=== PATIENT | male | born 1945 | race Caucasian/White ===

== ENCOUNTER → 2017-06-28 | Outpatient (CLI) | payer MEDICARE ==
--- NOTE | 2017-06-28 08:26 | US ---
EXAMINATION TYPE: US abdomen limited DATE OF EXAM: 06/28/2017 COMPARISON: NONE CLINICAL HISTORY: R18.8 OTHER ASCITES. Ascites check Scanned all 4 quadrants: no ascites seen at this time. Heterogeneous hyperechoic appearance of liver in the right upper quadrant is seen. No significant asc ites is noted in scanning bilateral upper and lower quadrants. IMPRESSION: As above
== END | disposition home or self-care (01) ==
LOC: RADUSWWP 07:59
PROVIDERS: ATTEND Internal Medicine Cardiovascular Disease
DX: R18.8 Other ascites (principal)
CPT/HCPCS: 76705

== ENCOUNTER → 2017-07-28 | Outpatient (CLI) | payer MEDICARE ==
--- NOTE | 2017-07-28 14:26 | XR ---
EXAMINATION TYPE: XR lumbosacral spine min 4V DATE OF EXAM: 07/28/2017 COMPARISON: NONE HISTORY: Ankylosing spondylitis chronic low back pain TECHNIQUE: Five-view lumbar spine FINDINGS: Spondylosis is present. Sacroiliac joints may have effusion within the [id number]. Disc space narrowing is present diffusely. Vertebral body heights are preserved. Alignment is straightened . Note is made of some minimal fusiform prominence of the distal abdominal aorta with an AP diameter of 3.3 cm. IMPRESSION: 1. Extensive spondylosis. 2. Mild facet degenerative changes. 3. Incidental note is made of sacroiliac joint fusion which is compatible with ankylosing spondylitis . 4. Distal abdominal aorta fusiform prominence with an AP diameter of 3.3 cm.
== END | disposition home or self-care (01) ==
LOC: RADXRYALE 13:54
PROVIDERS: ATTEND Internal Medicine
DX: M45.7 Ankylosing spondylitis of lumbosacral region (principal); M47.816 Spondylosis without myelopathy or radiculopathy, lumbar region
CPT/HCPCS: 72110

== ENCOUNTER 2017-11-04 23:49 | Emergency (ER) | payer MEDICARE ==
[2017-11-05] MEDS ORDERED: SODIUM CHLORIDE 0.9% 1,000 ML IV STA (00:46)
--- NOTE | 2017-11-05 00:59 | ED ---
Abdominal Pain HPI - General Chief Complaint: Abdominal Pain Stated Complaint: ABD PAIN Time Seen by Provider: 11/05/17 00:35 Source: patient, family, RN notes reviewed Mode of arrival: ambulatory Limitations: no limitations - History of Present Illness Initial Comments: This is a 72-year-old male who presents to the emergency department with chief complaint of abdominal pain. Patient states that at around 4 PM this afternoon he developed generalized abdominal pain. He states he feels bloated and has cramping. Patient states that he has also had nausea and vomiting. Denies any diarrhea. States his last normal bowel movement was yesterday morning. He denies any fevers or chills, chest pain or shortness of breath. Denies any hematuria or dysuria. Patient states that he does have a history of small bowel obstruction. - Related Data Home Medications Medication Instructions Recorded Confirmed Allopurinol [Zyloprim] 100 mg PO DAILY 01/03/14 01/03/14 Aspirin 81 mg PO HS 01/03/14 01/03/14 Atorvastatin [Lipitor] 20 mg PO HS 01/03/14 01/03/14 Baclofen 10 mg PO HS 01/03/14 01/03/14 Cholecalciferol [Vitamin D3] 1,000 unit PO DAILY 01/03/14 01/03/14 Doxazosin [Cardura] 4 mg PO DAILY 01/03/14 01/03/14 Enalapril [Vasotec] 5 mg PO DAILY 01/03/14 01/03/14 Furosemide [Lasix] 40 mg PO DAILY 01/03/14 01/03/14 Gabapentin 600 mg PO TID 01/03/14 01/03/14 Meloxicam [Mobic] 7.5 mg PO HS 01/03/14 01/03/14 Metaxalone 400 mg PO DAILY 01/03/14 01/03/14 Metoprolol Succinate (ER) [Toprol 25 mg PO HS 01/03/14 01/03/14 XL] Multivitamins, Thera [Multivitamin] 1 each PO DAILY 01/03/14 01/03/14 Omeprazole [PriLOSEC] 20 mg PO DAILY 01/03/14 01/03/14 Potassium Chloride [Klor-Con 10] 10 meq PO DAILY 01/03/14 01/03/14 Pramipexole Di-HCl [Mirapex] 0.5 mg PO DAILY 01/03/14 01/03/14 Pramipexole Di-HCl [Mirapex] 1.5 mg PO HS 01/03/14 01/03/14 Allergies Allergy/AdvReac Type Severity Reaction Status Date / Time No Known Allergies Allergy Verified 11/05/17 00:04 Review of Systems ROS Statement: Those systems with pertinent positive or pertinent negative responses have been documented in the HPI. ROS Other: All systems not noted in ROS Statement are negative. Past Medical History Past Medical History: Asthma, GERD/Reflux, Hyperlipidemia, Hypertension, Pneumonia, Prostate Disorder, Sleep Apnea/CPAP/BIPAP Additional Past Medical History / Comment(s): cardiomyopathy, hiatal hernia, anemia History of Any Multi-Drug Resistant Organisms: None Reported Past Surgical History: Hernia Repair, Joint Replacement, Orthopedic Surgery Additional Past Surgical History / Comment(s): colonoscopy,EGD, Scotty hip replacments, scotty fx ankles, screws removed from rt ankle Past Anesthesia/Blood Transfusion Reactions: No Reported Reaction Past Psychological History: No Psychological Hx Reported Smoking Status: Former smoker Past Alcohol Use History: Occasional Past Drug Use History: None Reported General Exam - General Exam Comments Initial Comments: General: Awake and alert, well-developed; in no apparent distress. HEENT: Head atraumatic, normocephalic. Pupils are equal, round and reactive to light. Extraocular movements intact. Oropharynx moist without erythema or exudate. Neck: Supple. Normal ROM. Cardiovascular: Regular rate and rhythm. No murmurs, rubs or gallops. Chest symmetrical. Respiratory: Lungs clear to auscultation bilaterally. No wheezes, rales or rhonchi. Normal respiratory effort with no use of accessory muscles. Abdomen: Soft, distended. Mild tenderness on palpation of right lower quadrant. No rigidity, rebound or guarding. Normal bowel sounds in all 4 quadrants. Musculoskeletal: Normal ROM, no tenderness bilateral upper and lower extremities. Ambulating normally. Skin: [place], warm and dry without rashes or lesions. Neurological: Alert and oriented x3. CN II-XII grossly intact. Speech is fluent and answers are appropriate. No focal neuro deficits. Psychiatric: Normal mood and affect. No overt signs of depression or anxiety noted. Limitations: no limitations Course Vital Signs 11/05/17 00:02 Temperature 98.6 F Pulse Rate 74 Respiratory 16 Rate Blood Pressure 130/77 O2 Sat by Pulse 97 Oximetry Medical Decision Making - Medical Decision Making This is a 72-year-old male who presents to the emergency department with chief complaint of abdominal pain. Patient reports generalized abdominal pain since 4 PM yesterday evening. He reports nausea and vomiting. Abdomen is soft, mildly distended with mild tenderness of the right lower quadrant. Patient declined antiemetic medication and has not vomited. On reevaluation, patient stated that his symptoms had resolved and that he was no longer experiencing abdominal pain. X-ray KUB revealed no acute abnormalities. CBC revealed a mildly elevated white count at 11.1 and a hemoglobin at 12.0, however this is consistent with previous laboratory studies. BUN mildly elevated at 22 and creatinine at 1.26. Patient was given 1 L of fluids in the emergency department. UA is unremarkable. Patient states he is ready to be discharged home and will follow up with his primary care provider on Tuesday. Vitals are stable and he is in no acute distress. He will be discharged home at this time. All questions were answered. - Lab Data Result diagrams: 11/05/17 01:30 11/05/17 01:30 Lab Results 11/05/17 11/05/17 11/05/17 Range/Units 01:30 01:30 01:30 WBC 11.1 H (3.8-10.6) k/uL RBC 4.02 L (4.30-5.90) m/uL Hgb 12.0 L (13.0-17.5) gm/dL Hct 37.3 L (39.0-53.0) % MCV 92.7 (80.0-100.0) fL MCH 29.9 (25.0-35.0) pg MCHC 32.2 (31.0-37.0) g/dL RDW 14.8 (11.5-15.5) % Plt Count 202 (150-450) k/uL Neutrophils % 89 % Lymphocytes % 6 % Monocytes % 4 % Eosinophils % 0 % Basophils % 0 % Neutrophils # 9.9 H (1.3-7.7) k/uL Lymphocytes # 0.7 L (1.0-4.8) k/uL Monocytes # 0.4 (0-1.0) k/uL Eosinophils # 0.0 (0-0.7) k/uL Basophils # 0.0 (0-0.2) k/uL Sodium 141 (137-145) mmol/L Potassium 4.6 (3.5-5.1) mmol/L Chloride 103 (98-107) mmol/L Carbon Dioxide 27 (22-30) mmol/L Anion Gap 11 mmol/L BUN 22 H (9-20) mg/dL Creatinine 1.26 H (0.66-1.25) mg/dL Est GFR (CKD-EPI)AfAm 65 (>60 ml/min/1.73 sqM) Est GFR (CKD-EPI)NonAf 56 (>60 ml/min/1.73 sqM) Glucose 127 H (74-99) mg/dL Calcium 9.7 (8.4-10.2) mg/dL Total Bilirubin 0.6 (0.2-1.3) mg/dL AST 25 (17-59) U/L ALT 35 (21-72) U/L Alkaline Phosphatase 73 (38-126) U/L Total Protein 7.8 (6.3-8.2) g/dL Albumin 4.6 (3.5-5.0) g/dL Amylase 55 (30-110) U/L Lipase 85 (23-300) U/L Urine Color Yellow Urine Appearance Clear (Clear) Urine pH 5.0 (5.0-8.0) Ur Specific [place] 1.016 (1.001-1.035) Urine Protein Trace H (Negative) Urine Glucose (UA) Negative (Negative) Urine Ketones Negative (Negative) Urine Blood Negative (Negative) Urine Nitrite Negative (Negative) Urine Bilirubin Negative (Negative) Urine Urobilinogen <2.0 (<2.0) mg/dL Ur Leukocyte Esterase Negative (Negative) Disposition Clinical Impression: Abdominal pain, Nausea and vomiting Disposition: HOME SELF-CARE Condition: Good Instructions: Abdominal Pain (ED), Acute Nausea and Vomiting (ED) Additional Instructions: Please follow up with primary care provider within 1-2 days. Return to emergency department if symptoms should worsen or any concerns arise. Is patient prescribed a controlled substance at d/c from ED?: No Referrals: Nalini Palmer MD [Primary Care Provider] - 1-2 days Time of Disposition: 02:45
--- NOTE | 2017-11-05 01:52 | XR ---
EXAMINATION TYPE: XR KUB DATE OF EXAM: 11/05/2017 COMPARISON: NONE HISTORY: Abdominal pain TECHNIQUE: 2 views upright FINDINGS: There is no sign of intestinal obstruction or pneumoperitoneum. Fecal pattern is normal. Th ere are bilateral hip prosthesis. There are no pathologic calcifications over the kidneys. There is e xtensive spondylosis in the lumbar spine. Lung bases are clear. IMPRESSION: Nonacute abdomen.
[2017-11-05 02:02] LABS: Appearance,Urine Clear (Clear); Bilirubin,Urine Negative (Negative); Blood,Urine Negative (Negative); Color,Urine Yellow; Glucose,Urine (UA) Negative (Negative); Ketones,Urine Negative (Negative); Leukocyte Esterase,Urine Negative (Negative); Nitrite,Urine Negative (Negative); Protein,Urine Trace (Negative); Specific Gravity,Urine 1.016 (1.001-1.035); Urobilinogen,Urine <2.0 mg/dL (<2.0)
[2017-11-05 02:04] LABS: Basophils % (A) 0 %; Eosinophils % (A) 0 %; HCT 37.3 % (39.0-53.0); Lymphocytes # (A) 0.7 k/uL (1.0-4.8); Lymphocytes % (A) 6 %; MCH 29.9 pg (25.0-35.0); MCHC 32.2 g/dL (31.0-37.0); MCV 92.7 fL (80.0-100.0); Mean Platelet Volume 8.1; Monocytes # (A) 0.4 k/uL (0-1.0); Monocytes % (A) 4 %; Neutrophils # (A) 9.9 k/uL (1.3-7.7); Neutrophils % (A) 89 %; Platelet Count 202 k/uL (150-450); RBC 4.02 m/uL (4.30-5.90); RDW 14.8 % (11.5-15.5); WBC 11.1 k/uL (3.8-10.6)
[2017-11-05 02:15] LABS: Albumin 4.6 g/dL (3.5-5.0); Calcium 9.7 mg/dL (8.4-10.2); Potassium 4.6 mmol/L (3.5-5.1); Total Bilirubin 0.6 mg/dL (0.2-1.3); Total Protein 7.8 g/dL (6.3-8.2)
[2017-11-05 03:04] VITALS: BP 134/64; PULSE 77; RESP 18; TEMP 97.7
== END 2017-11-05 03:05 | disposition home or self-care (01) ==
LOC: EC 23:49
DX: R10.84 Generalized abdominal pain (principal); R11.2 Nausea with vomiting, unspecified; R14.0 Abdominal distension (gaseous); E78.5 Hyperlipidemia, unspecified; I10 Essential (primary) hypertension; G47.30 Sleep apnea, unspecified; K21.9 Gastro-esophageal reflux disease without esophagitis; Z79.1 Long term (current) use of non-steroidal anti-inflammatories (NSAID); Z79.82 Long term (current) use of aspirin; Z79.899 Other long term (current) drug therapy; Z87.891 Personal history of nicotine dependence
CPT/HCPCS: 36415; 74018; 80053; 81003; 82150; 83690; 85025; 96360; 99284

== ENCOUNTER → 2018-09-25 | Outpatient (CLI) | payer MEDICARE ==
--- NOTE | 2018-09-25 13:10 | XR ---
EXAMINATION TYPE: XR shoulder complete LT DATE OF EXAM: 09/25/2018 COMPARISON: NONE HISTORY: 73 year-old male left shoulder pain TECHNIQUE: 3 views FINDINGS: Mild degenerative joint space narrowing with moderate marginal spurring at the AC joint. Subacromial space is preserved. Mild bony irregularity and sclerosis of the greater tuberosity. No acute fracture , subluxation, or dislocation seen. IMPRESSION: 1. 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 2. Some bony changes at the greater tuberosity suggest chronic rotator cuff tendinopathy.
== END | disposition home or self-care (01) ==
LOC: RADXRYALE 10:41
PROVIDERS: ATTEND Internal Medicine
DX: M19.012 Primary osteoarthritis, left shoulder (principal)

== ENCOUNTER → 2018-12-11 | Outpatient (CLI) | payer MEDICARE ==
--- NOTE | 2018-12-11 11:44 | XR ---
EXAMINATION TYPE: XR knee limited RT DATE OF EXAM: 12/11/2018 COMPARISON: None HISTORY: Right knee pain TECHNIQUE: 2 view right knee FINDINGS: Anterior superior and anterior inferior patellar spurring is present. No joint effusion is evident. No acute fractures or dislocations are evident. Old fracture of the proximal diaphyseal fibula may be present. Knee joint space appears preserved. IMPRESSION: 1. Mild degenerative changes right knee.
== END | disposition home or self-care (01) ==
LOC: RADXRYALE 11:12
PROVIDERS: ATTEND Internal Medicine
DX: M17.11 Unilateral primary osteoarthritis, right knee (principal)

== ENCOUNTER → 2019-09-18 | Outpatient (CLI) | payer MEDICARE ==
--- NOTE | 2019-09-18 11:23 | MM ---
Reason for exam: clinical finding. Physical Findings: Nurse did not find any significant physical abnormalities on exam. MG 3D Diag Mammo W/Cad ERMIAS Bilateral CC and MLO view(s) were taken. The breast tissue is almost entirely fat. There is no discrete abnormality. These results were verbally communicated with the patient and result sheet given to the patient on 09/18/19. ASSESSMENT: Incomplete: need additional imaging evaluation, BI-RAD 0 RECOMMENDATION: Ultrasound of both breasts.
--- NOTE | 2019-09-18 11:25 | USB ---
Reason for exam: additional evaluation requested from abnormal screening. US Breast BILAT Right complete breast ultrasound includes all four quadrants, the retroareolar region and axilla. Finding demonstrates no cystic or solid lesion seen. Let complete breast ultrasound includes all four quadrants, the retroareolar region and axilla. Finding demonstrates a 6mm oval normal lymph node at the axilla. No solid or cystic lesion. No significant gynecomastia. These results were verbally communicated with the patient and result sheet given to the patient on 09/18/19. ASSESSMENT: Negative, BI-RAD 1 RECOMMENDATION: Clinical management of both breasts. Manage on a clinical basis with regard to nipple tenderness/irritation.
== END | disposition home or self-care (01) ==
LOC: RADMAMWWP 10:01
PROVIDERS: ATTEND Internal Medicine
DX: R23.4 Changes in skin texture (principal); R92.8 Other abnormal and inconclusive findings on diagnostic imaging of breast
CPT/HCPCS: 77066; 76641; G0279; 77062

== ENCOUNTER → 2022-06-23 | Outpatient (CLI) | payer MEDICARE ==
--- NOTE | 2022-06-24 12:04 | US ---
EXAMINATION TYPE: US scrotum with doppler. Grayscale and color Doppler Duplex imaging performed of lilly antony scrotum. DATE OF EXAM: 06/23/2022 COMPARISON: NONE CLINICAL INDICATION: Male, 76 years old with history of N50.89 OTHER SPECIFIED DISORDERS OF THE MALE GENIT; Left testicular pain. Patient states the pain has subsided. EXAM MEASUREMENTS: TESTICLES: Right Testicle: 4.3 x 3.4 x 2.3 cm Left Testicle: 3.9 x 2.3 x 1.8 cm EPIDIDYMIS HEAD: Right Epididymis: 0.7 x 0.7 x 1.0 cm Left Epididymis: Unable to visualize Doppler performed to assess for testicular vascularity; bilateral color flow and waveforms are seen. Presence of hydroceles: Yes on the right: 0.8 x 3.0 x 1.0 cm. Presence of varicoceles: Prominent vessels seen bilaterally- measure 4 mm on the right and 4.4 mm on the left. [employer]ator notes:Left testicle appears smaller in size and slightly heterogeneous. IMPRESSION: 1. Smaller left testicle may be developmental or could be sequela of old injury. No sonographic evide nce for testicular torsion or epididymoorchitis. 2. Bilateral varicoceles, left larger than right. 3. Small right-sided hydrocele.
== END | disposition home or self-care (01) ==
LOC: RADUSWWP 16:34
PROVIDERS: ATTEND Urology
DX: N50.89 Other specified disorders of the male genital organs (principal); I86.1 Scrotal varices; N43.3 Hydrocele, unspecified
CPT/HCPCS: 76870; 93975

== ENCOUNTER → 2023-01-19 | Outpatient (CLI) | payer MEDICARE ==
--- NOTE | 2023-01-21 13:02 | MR ---
EXAMINATION TYPE: MR brain wo/w con DATE OF EXAM: 01/19/2023 8:53 PM CLINICAL INDICATION:Male, 77 years old with history of C34.32; PHH, Lung cancer, occasional dizziness and forgetfulness COMPARISON: None TECHNIQUE: Multi planar, multi sequence imaging was performed through the brain including: T1, T2, In version recovery, susceptibility weighted imaging and gradient echo imaging and Diffusion weighted im aging. The patient was then given intravenous contrast and multi planar, T1 fat-saturation images wer e obtained. IV Contrast: 11.5 cc Gadobutrol FINDINGS: Mild cerebral atrophy with proportional dilation of ventricular system. Diffusion-weighted imaging s hows no evidence of restricted diffusion to suggest acute/subacute infarct. Intracranial arterial brie w voids are maintained. Midline structures show no abnormality. Scattered foci of high T2 signal inte nsity are seen within the periventricular white matter. The susceptibility weighted images do not rev eal any evidence for micro-hemorrhage. After administration of gadolinium, no abnormal enhancement is seen. The bone marrow signal is within normal limits. Paranasal sinuses and mastoid air cells: No significant paranasal sinus disease. Visualized orbits: Bilateral aphakia IMPRESSION: 1. No evidence of intracranial mass, acute/subacute infarct, or abnormal enhancement. 2. Nonspecific white matter changes, likely related to small vessel ischemic disease.
== END | disposition home or self-care (01) ==
LOC: RADMRIMAIN 19:45
PROVIDERS: ATTEND Internal Medicine
DX: C34.32 Malignant neoplasm of lower lobe, left bronchus or lung (principal); R90.82 White matter disease, unspecified
CPT/HCPCS: 70553; A9585

== ENCOUNTER → 2023-01-21 | Outpatient (CLI) | payer MEDICARE ==
--- NOTE | 2023-01-23 21:32 | PE ---
EXAMINATION TYPE: PET CT fusion skull to thigh DATE OF EXAM: 01/21/2023 COMPARISON: MRI brain 01/19/2023 Prior PET/CT: None HISTORY: Lung cancer TECHNIQUE: Following the intravenous administration of 11.6 mCi of F-18 FDG, whole body images are p erformed from the skull base to the midthigh. Images are reviewed on the computer in the coronal, ax ial, and sagittal planes. Reconstructed rotating images are created on independent workstation and r eviewed on the computer. A localization and attenuation correction CT is performed in conjunction w ith the PET scan. DLP: 1002.01 mGycm SCAN: Initial Blood glucose: 110 mg/dL Average Mediastinum SUV: 2.44 Average Liver SUV: 2.85 FINDINGS: NECK: No abnormal uptake THORAX: There is uptake within a posterior medial left lung nodule, image 101, SUV 3.06. There is intense uptake within the posterior aspect of soft tissue density adjacent to the descending thoracic aorta in the posterior left infrahilar region, image 95, SUV 7.12. There may be a paraesophageal lymph node, image 86, SUV 4.75. Neoplasm should be considered. ABDOMEN: No abnormal uptake PELVIS: Some proximal gluteal muscular activity is likely related to muscle atrium during the examina tion and appear symmetrical. OSSEOUS STRUCTURES: Abnormal uptake is in the posterior lateral left scapula, example image 48, SUV 6 .73. Findings can be compatible with metastatic lesion. There is intense uptake within the mid sternum, image 99, SUV 7.48. LOCALIZATION CT: Bilateral hip prostheses are present. COMPARISON: None IMPRESSION: 1. Uptake within the neoplastic range within soft tissue density within the lung can be compatible wi th the patient's lung cancer. 2. Metastatic lesions to the left scapula and sternum are evident.
== END | disposition home or self-care (01) ==
LOC: RADPETMAIN 09:25
PROVIDERS: ATTEND Internal Medicine
DX: C34.32 Malignant neoplasm of lower lobe, left bronchus or lung (principal); C79.51 Secondary malignant neoplasm of bone; J98.4 Other disorders of lung
CPT/HCPCS: 78815; A9552

== ENCOUNTER 2023-03-19 11:12 | Emergency (ER) | payer MEDICARE ==
--- NOTE | 2023-03-19 11:55 | ED ---
General Adult HPI - General Chief complaint: Chest Pain Stated complaint: chest pain Time Seen by Provider: 03/19/23 11:35 Source: patient, family, RN notes reviewed, old records reviewed Mode of arrival: ambulatory Limitations: no limitations - History of Present Illness Initial comments: This is a 77-year-old male with past medical history significant for lung cancer who has been treated with chemotherapy. Patient states he has chest pain in the left side every day but it is not too bad however this morning he woke up it was significantly or painful than normal. Patient did not take any this morning pain medicines because he wanted to be evaluated without his pain medicines on board. Patient denies any fever chills. Patient has a cough. Patient states it felt like it was making more short of breath but it could've been just secondary to the pain he states. Patient denies lightheadedness or dizziness. Patient denies abdominal pain patient denies nausea vomiting diarrhea patient states pain currently is much better than it was. - Related Data Home Medications Medication Instructions Recorded Confirmed Aspirin 81 mg PO HS 01/03/14 01/03/14 Atorvastatin [Lipitor] 20 mg PO HS 01/03/14 01/03/14 Baclofen 10 mg PO HS 01/03/14 01/03/14 Cholecalciferol [Vitamin D3] 1,000 unit PO DAILY 01/03/14 01/03/14 Doxazosin [Cardura] 4 mg PO DAILY 01/03/14 01/03/14 Enalapril [Vasotec] 5 mg PO DAILY 01/03/14 01/03/14 Furosemide [Lasix] 40 mg PO DAILY 01/03/14 01/03/14 Gabapentin 600 mg PO TID 01/03/14 01/03/14 Meloxicam [Mobic] 7.5 mg PO HS 01/03/14 01/03/14 Metaxalone 400 mg PO DAILY 01/03/14 01/03/14 Metoprolol Succinate (ER) [Toprol 25 mg PO HS 01/03/14 01/03/14 XL] Multivitamins, Thera [Multivitamin] 1 each PO DAILY 01/03/14 01/03/14 Omeprazole [PriLOSEC] 20 mg PO DAILY 01/03/14 01/03/14 Potassium Chloride [Klor-Con 10] 10 meq PO DAILY 01/03/14 01/03/14 Pramipexole Di-HCl [Mirapex] 0.5 mg PO DAILY 01/03/14 01/03/14 Pramipexole Di-HCl [Mirapex] 1.5 mg PO HS 01/03/14 01/03/14 allopurinoL [Zyloprim] 100 mg PO DAILY 01/03/14 01/03/14 Allergies Allergy/AdvReac Type Severity Reaction Status Date / Time No Known Allergies Allergy Verified 03/19/23 11:30 Review of Systems ROS Statement: Those systems with pertinent positive or pertinent negative responses have been documented in the HPI. ROS Other: All systems not noted in ROS Statement are negative. Past Medical History Past Medical History: Asthma, GERD/Reflux, Hyperlipidemia, Hypertension, Pneumonia, Prostate Disorder, Sleep Apnea/CPAP/BIPAP Additional Past Medical History / Comment(s): cardiomyopathy, hiatal hernia, anemia History of Any Multi-Drug Resistant Organisms: None Reported Past Surgical History: Hernia Repair, Joint Replacement, Orthopedic Surgery Additional Past Surgical History / Comment(s): colonoscopy,EGD, Scotty hip replacments, scotty fx ankles, screws removed from rt ankle Past Anesthesia/Blood Transfusion Reactions: No Reported Reaction Past Psychological History: No Psychological Hx Reported Smoking Status: Former smoker General Exam - General Exam Comments Initial Comments: GENERAL: Patient is well-developed and well-nourished. Patient is nontoxic and well- hydrated and is in mild distress. ENT: Neck is soft and supple. No significant lymphadenopathy is noted. Oropharynx is clear. Moist mucous membranes. Neck has full range of motion without eliciting any pain. EYES: The sclera were anicteric and conjunctiva were pink and moist. Extraocular movements were intact and pupils were equal round and reactive to light. Eyelids were unremarkable. PULMONARY: Unlabored respirations. Good breath sounds bilaterally. No audible rales rhonchi or wheezing was noted. CARDIOVASCULAR: There is a regular rate and rhythm without any murmurs gallops or rubs. ABDOMEN: Soft and nontender with normal bowel sounds. SKIN: Skin is clear with no lesions or rashes and otherwise unremarkable. NEUROLOGIC: Patient is alert and oriented x3. Cranial nerves II through XII are grossly i ntact. Motor and sensory are also intact. Normal speech, volume and content. Symmetrical smile. MUSCULOSKELETAL: Normal extremities with adequate strength and full range of motion. LYMPHATICS: No significant lymphadenopathy is noted PSYCHIATRIC: Normal psychiatric evaluation. Limitations: no limitations Course Vital Signs 03/19/23 11:20 Temperature 98.1 F Pulse Rate 89 Respiratory 20 Rate Blood Pressure 138/68 O2 Sat by Pulse 95 Oximetry Medical Decision Making - Medical Decision Making EKG is interpreted by myself. EKG shows sinus rhythm at 90 bpm IA interval is 136 QRS is 100 a QT interval 348 QTC is 396. Patient's EKG shows no ST segment elevation or depression. Was pt. sent in by a medical professional or institution (, PA, RADIOLOGIC TECH, urgent care, hospital, or detention...) When possible be specific @ -No Did you speak to anyone other than the patient for history (EMS, parent, family, police, friend...)? What history was obtained from this source @ -No Did you review nursing and triage notes (agree or disagree)? Why? @ -I reviewed and agree with nursing and triage notes Were old charts reviewed (outside hosp., previous admission, EMS record, old EKG, old radiological studies, urgent care reports/EKG's, detention records)? Report findings @ -I reviewed prior charts and prior lab work Differential Diagnosis (chest pain, altered mental status, abdominal pain women, abdominal pain men, vaginal bleeding, weakness, fever, dyspnea, syncope, head ache, dizziness, GI bleed, back pain, seizure, CVA, palpatations, mental health, musculoskeletal)? @ -Differential Chest Pain: Stable Angina, Unstable Angina, STEMI, NSTEMI Aortic Dissection, Pneumothorax, Musculoskeletal, Esophageal Spasm GERD, Cholecystitis, Pancreatitis, Zoster, this is not meant to be an all-inclusive list. EKG interpreted by me (3pts min.). @ -As above X-rays interpreted by me (1pt min.). @ -Chest x-ray showed no acute abnormality CT interpreted by me (1pt min.). @ -CT of the chest showed no PE and they did show an infrahilar mass as well as a mass in the sternum and left scapula U/S interpreted by me (1pt. min.). @ -None done What testing was considered but not performed or refused? (CT, X-rays, U/S, labs)? Why? @ -None What meds were considered but not given or refused? Why? @ -None Did you discuss the management of the patient with other professionals (professionals i.e. , PA, RADIOLOGIC TECH, lab, RT, psych nurse, social service worker, silica filter operator, teacher, guest relation officer, pillowcase sewer)? Give summary @ -No Was smoking cessation discussed for >3mins.? @ -No Was critical care preformed (if so, how long)? @ -No Were there social determinants of health that impacted care today? How? (Homelessness, low income, unemployed, alcoholism, drug addiction, transportation, low edu. Level, literacy, decrease access to med. care, detention, rehab)? @ -No Was there de-escalation of care discussed even if they declined (Discuss DNR or withdrawal of care, Hospice)? DNR status @ -No What co-morbidities impacted this encounter? (DM, HTN, Smoking, COPD, CAD, Cancer, CVA, ARF, Chemo, Hep., AIDS, mental health diagnosis, sleep apnea, morbid obesity)? @ -None Was patient admitted / discharged? Hospital course, mention meds given and route, prescriptions, significant lab abnormalities, going to OR and other pertinent info. @ -I spoke with the patient after he had taken his pain medicines and received medicine here patient was feeling considerably better and no longer had any significant chest pain. Patient denied any difficulty breathing. Patient comfortable going home at this point time. Patient states she'll start taking his pain medication as prescribed if he is uncomfortable. Patient states taking a deep breath it is typically when the pain is at its worse. Undiagnosed new problem with uncertain prognosis? @ -No Drug Therapy requiring intensive monitoring for toxicity (Heparin, Nitro, Insulin, Cardizem)? @ -No Were any procedures done? @ -No Diagnosis/symptom? @ -Muscle skeletal chest pain Acute, or Chronic, or Acute on Chronic? @ -Acute Uncomplicated (without systemic symptoms) or Complicated (systemic symptoms)? @ -Complicated Side effects of treatment? @ -No Exacerbation, Progression, or Severe Exacerbation? @ -No Poses a threat to life or bodily function? How? (Chest pain, USA, MS, pneumonia, PE, COPD, DKA, ARF, appy, cholecystitis, CVA, Diverticulitis, Homicidal, Suicidal, threat to staff... and all critical care pts) @ -No - Lab Data Result diagrams: 03/19/23 12:08 03/19/23 12:08 Lab Results 03/19/23 03/19/23 03/19/23 Range/Units 12:08 12:08 12:08 WBC 6.0 (3.8-10.6) k/uL RBC 2.88 L (4.30-5.90) m/uL Hgb 9.3 L (13.0-17.5) gm/dL Hct 28.2 L (39.0-53.0) % MCV 98.1 (80.0-100.0) fL MCH 32.3 (25.0-35.0) pg MCHC 33.0 (31.0-37.0) g/dL RDW 17.0 H (11.5-15.5) % Plt Count 122 L (150-450) k/uL MPV 10.8 Neutrophils % 86 % Lymphocytes % 10 % Monocytes % 3 % Eosinophils % 0 % Basophils % 0 % Neutrophils # 5.1 (1.3-7.7) k/uL Lymphocytes # 0.6 L (1.0-4.8) k/uL Monocytes # 0.2 (0-1.0) k/uL Eosinophils # 0.0 (0-0.7) k/uL Basophils # 0.0 (0-0.2) k/uL Hypochromasia Slight Poikilocytosis Slight Anisocytosis Slight Macrocytosis Slight PT 10.8 (10.0-12.5) sec INR 1.0 (<1.2) APTT 23.1 (22.0-30.0) sec D-Dimer 2.42 H (<0.60) mg/L FEU Sodium 139 (137-145) mmol/L Potassium 4.1 (3.5-5.1) mmol/L Chloride 104 (98-107) mmol/L Carbon Dioxide 30 (22-30) mmol/L Anion Gap 5 mmol/L BUN 23 H (9-20) mg/dL Creatinine 1.17 (0.66-1.25) mg/dL Est GFR (CKD-EPI)AfAm 69 (>60 ml/min/1.73 sqM) Est GFR (CKD-EPI)NonAf 59 (>60 ml/min/1.73 sqM) Glucose 101 H (74-99) mg/dL Calcium 8.7 (8.4-10.2) mg/dL Magnesium 1.4 L (1.6-2.3) mg/dL Total Bilirubin 0.8 (0.2-1.3) mg/dL AST 32 (17-59) U/L ALT 20 (4-49) U/L Alkaline Phosphatase 82 (38-126) U/L Troponin I (0.000-0.034) ng/mL Total Protein 6.3 (6.3-8.2) g/dL Albumin 3.5 (3.5-5.0) g/dL 03/19/23 Range/Units 12:08 WBC (3.8-10.6) k/uL RBC (4.30-5.90) m/uL Hgb (13.0-17.5) gm/dL Hct (39.0-53.0) % MCV (80.0-100.0) fL MCH (25.0-35.0) pg MCHC (31.0-37.0) g/dL RDW (11.5-15.5) % Plt Count (150-450) k/uL MPV Neutrophils % % Lymphocytes % % Monocytes % % Eosinophils % % Basophils % % Neutrophils # (1.3-7.7) k/uL Lymphocytes # (1.0-4.8) k/uL Monocytes # (0-1.0) k/uL Eosinophils # (0-0.7) k/uL Basophils # (0-0.2) k/uL Hypochromasia Poikilocytosis Anisocytosis Macrocytosis PT (10.0-12.5) sec INR (<1.2) APTT (22.0-30.0) sec D-Dimer (<0.60) mg/L FEU Sodium (137-145) mmol/L Potassium (3.5-5.1) mmol/L Chloride (98-107) mmol/L Carbon Dioxide (22-30) mmol/L Anion Gap mmol/L BUN (9-20) mg/dL Creatinine (0.66-1.25) mg/dL Est GFR (CKD-EPI)AfAm (>60 ml/min/1.73 sqM) Est GFR (CKD-EPI)NonAf (>60 ml/min/1.73 sqM) Glucose (74-99) mg/dL Calcium (8.4-10.2) mg/dL Magnesium (1.6-2.3) mg/dL Total Bilirubin (0.2-1.3) mg/dL AST (17-59) U/L ALT (4-49) U/L Alkaline Phosphatase (38-126) U/L Troponin I <0.012 (0.000-0.034) ng/mL Total Protein (6.3-8.2) g/dL Albumin (3.5-5.0) g/dL Disposition Clinical Impression: Musculoskeletal chest pain Disposition: HOME SELF-CARE Condition: Good Instructions (If sedation given, give patient instructions): Chest Pain (ED) Is patient prescribed a controlled substance at d/c from ED?: No Referrals: Nalini Palmer MD [Primary Care Provider] - 1-2 days Time of Disposition: 14:50
--- NOTE | 2023-03-19 12:10 | XR ---
EXAMINATION TYPE: XR chest 2V DATE OF EXAM: 03/19/2023 COMPARISON: NONE HISTORY: Chest pain TECHNIQUE: Frontal and lateral views of the chest are obtained. FINDINGS: There is no focal air space opacity, pleural effusion, or pneumothorax seen. The cardiac silhouette size is within normal limits. The osseous structures are intact. IMPRESSION: No acute cardiopulmonary process.
[2023-03-19] MEDS: KETOROLAC 15 MG/ML 1 ML VIAL IVP STA (12:24)
[2023-03-19] MEDS: SODIUM CHLORIDE 0.9% 500 ML 500 ML IV STA (12:24)
[2023-03-19 12:31] LABS: Anisocytosis Slight; Basophils % (A) 0 %; Eosinophils % (A) 0 %; HCT 28.2 % (39.0-53.0); HGB 9.3 gm/dL (13.0-17.5); Hypochromasia Slight; Lymphocytes # (A) 0.6 k/uL (1.0-4.8); Lymphocytes % (A) 10 %; MCH 32.3 pg (25.0-35.0); MCV 98.1 fL (80.0-100.0); Macrocytosis Slight; Mean Platelet Volume 10.8; Monocytes # (A) 0.2 k/uL (0-1.0); Monocytes % (A) 3 %; Neutrophils # (A) 5.1 k/uL (1.3-7.7); Neutrophils % (A) 86 %; Platelet Count 122 k/uL (150-450); Poikilocytosis Slight; RBC 2.88 m/uL (4.30-5.90)
[2023-03-19 12:46] LABS: Partial Thromboplastin Time 23.1 sec (22.0-30.0); Prothrombin Time 10.8 sec (10.0-12.5)
[2023-03-19 12:51] LABS: ALT 20 U/L (4-49); AST 32 U/L (17-59); African American GFR (CKD) 69 (>60 ml/min/1.73 sqM); Albumin 3.5 g/dL (3.5-5.0); Alkaline Phosphatase 82 U/L (38-126); Anion Gap 5 mmol/L; Blood Urea Nitrogen 23 mg/dL (9-20); Calcium 8.7 mg/dL (8.4-10.2); Carbon Dioxide 30 mmol/L (22-30); Chloride 104 mmol/L (98-107); Glucose 101 mg/dL (74-99); Magnesium 1.4 mg/dL (1.6-2.3); Non-African American GFR(CKD) 59 (>60 ml/min/1.73 sqM); Potassium 4.1 mmol/L (3.5-5.1); Sodium 139 mmol/L (137-145); Total Bilirubin 0.8 mg/dL (0.2-1.3); Total Protein 6.3 g/dL (6.3-8.2)
--- NOTE | 2023-03-19 14:13 | CT ---
EXAMINATION TYPE: CT chest angio for PE DATE OF EXAM: 03/19/2023 COMPARISON: HISTORY: r/o PE CT DLP: 657.8 mGycm CONTRAST: CT chest with contrast and 3D reconstruction with MIP imaging is performed with IV Contrast, patient injected with 75 mL of Isovue 370. Contrast-enhanced CT of the chest was performed through the course of the pulmonary arteries with abebe g and mediastinal window settings submitted. 3D reconstruction with MIP imaging was also performed. PULMONARY ARTERIES: The pulmonary arteries and their major tributaries are patent. I do not see lexa dence for sizable filling defect to suggest pulmonary embolic process. LUNGS: There is left infrahilar mass measuring approximately 4.3 x 2.0 cm with additional pleural-bas ed component measuring 2.2 cm. Correlating patient's known malignancy. The remainder of the lungs are clear. MEDIASTINUM: Thoracic aorta is of normal caliber,however, evaluation is limited given timing of the contrast bolus. If there is concern for thoracic aortic pathology consider NINFA. Correlate clinicall y . The heart is not enlarged. No evidence for mediastinal mass. No mediastinal lymph nodes greater than 1cm. HILAR STRUCTURES: No evidence for mass. No hilar lymph nodes greater than 1 cm. UPPER ABDOMEN: No significant abnormality is seen. Other: Sternal lesion and left scapular lesion noted. IMPRESSION: 1. No evidence for Pulmonary embolism at this time. 2. Left infrahilar mass with nodular pleural component. 3. Sternal and left scapular masses.
[2023-03-19] MEDS: MAGNESIUM SULFATE-D5W PMX 1 GM in DEXTROSE/WATER 1 100ML.BAG IVPB ONE (14:29)
[2023-03-19 15:45] VITALS: BP 113/68; PULSE 77; RESP 18; TEMP 97.7
== END 2023-03-19 15:45 | disposition home or self-care (01) ==
LOC: EC 11:12
DX: R07.89 Other chest pain (principal); J45.909 Unspecified asthma, uncomplicated; I10 Essential (primary) hypertension; G47.30 Sleep apnea, unspecified; E78.5 Hyperlipidemia, unspecified; K21.9 Gastro-esophageal reflux disease without esophagitis; Z79.82 Long term (current) use of aspirin; Z79.899 Other long term (current) drug therapy; Z87.891 Personal history of nicotine dependence
CPT/HCPCS: 99285 ×2; 96374 ×2; 96361 ×2; 36415; 93005; 85379; 80053; 83735; 84484; 85025; 85610; 85730; 71046; 71275; J3475; J1885; Q9967

== ENCOUNTER 2023-04-12 16:20 | Emergency (ER) | payer MEDICARE ==
--- NOTE | 2023-04-12 16:55 | ED ---
General Adult HPI - General Source: patient, RN notes reviewed Limitations: no limitations <Megan Estevez - Last Filed: 04/13/23 11:36> - History of Present Illness -: days(s) Radiation: non-radiation Severity scale (1-10): 10 Quality: constant Consistency: constant Improves with: none Worsens with: none Associated Symptoms: denies other symptoms Treatments Prior to Arrival: none <Kj Nixon - Last Filed: 04/21/23 06:27> - General Stated complaint: NVD-Chemo Time Seen by Provider: 04/12/23 16:52 - History of Present Illness Initial comments: 77 year old male presents to the emergency department for evaluation of nausea, vomiting, diarrhea x3 days. Difficulty tolerating food and water due to vomiting. Patient is receiving chemo for lung cancer. Last chemo one week ago. Patient follows with Dr. Leigh. (Megan Estevez) This is a 77-year-old male to the ER for evaluation of severe weakness today, patient is on chemotherapy for lung cancer and has been having decreased activity level appetite secondary to his chemo 1 week ago. Patient having increasing weakness and cannot keep anything down per the . Patient admits to decreased activity level and overall weakness (Kj Nixon) - Related Data Home Medications Medication Instructions Recorded Confirmed Furosemide [Lasix] 40 mg PO DAILY 01/03/14 04/15/23 Pramipexole Di-HCl [Mirapex] 1.5 mg PO BID 01/03/14 04/15/23 allopurinoL [Zyloprim] 100 mg PO HS 01/03/14 04/15/23 Albuterol Sulfate [Albuterol 1 - 2 puff PO RT-Q4H PRN 04/15/23 04/15/23 Sulfate Hfa] Ergocalciferol (Vitamin D2) 1,250 mcg PO WEEKLY 04/15/23 04/15/23 [Drisdol (50,000 Iu)] Ferrous Sulfate [Iron (65 MG 325 mg PO DAILY 04/15/23 04/15/23 Elemental)] Fluticasone Propion/Salmeterol 1 puff IN RT-BID 04/15/23 04/15/23 [Advair 250-50 Diskus] HYDROcodone/APAP 10-325MG [[place] 1 tab PO Q6HR PRN 04/15/23 04/15/23 10-325] Montelukast [Singulair] 10 mg PO HS 04/15/23 04/15/23 Morphine Sulfate ER [Ms Contin] 30 mg PO Q12HR 04/15/23 04/15/23 Ondansetron Odt [Zofran ODT] 8 mg PO Q8HR PRN 04/15/23 04/15/23 Rosuvastatin [Crestor] 20 mg PO DAILY 04/15/23 04/15/23 Tamsulosin [Flomax] 0.4 mg PO DAILY 04/15/23 04/15/23 carvediloL [Coreg] 3.125 mg PO BID 04/15/23 04/15/23 Allergies Allergy/AdvReac Type Severity Reaction Status Date / Time No Known Allergies Allergy Verified 04/15/23 07:52 Review of Systems ROS Other: All systems not noted in ROS Statement are negative. <Megan Estevez - Last Filed: 04/13/23 11:36> ROS Other: All systems not noted in ROS Statement are negative. <Kj Nixon - Last Filed: 04/21/23 06:27> ROS Statement: Those systems with pertinent positive or pertinent negative responses have been documented in the HPI. Past Medical History Past Medical History: Asthma, GERD/Reflux, Hyperlipidemia, Hypertension, Pneumonia, Prostate Disorder, Sleep Apnea/CPAP/BIPAP Additional Past Medical History / Comment(s): cardiomyopathy, hiatal hernia, anemia History of Any Multi-Drug Resistant Organisms: None Reported Past Surgical History: Hernia Repair, Joint Replacement, Orthopedic Surgery Additional Past Surgical History / Comment(s): colonoscopy,EGD, Antonina hip replacments, antonina fx ankles, screws removed from rt ankle Past Anesthesia/Blood Transfusion Reactions: No Reported Reaction Past Psychological History: No Psychological Hx Reported Smoking Status: Former smoker <Megan Estevez - Last Filed: 04/13/23 11:36> General Exam <Megan Estevez - Last Filed: 04/13/23 11:36> General appearance: alert, in no apparent distress Head exam: Present: atraumatic, normocephalic, normal inspection Eye exam: Present: normal appearance, PERRL, EOMI. Absent: scleral icterus, conjunctival injection, periorbital swelling ENT exam: Present: normal exam, mucous membranes moist Neck exam: Present: normal inspection. Absent: tenderness, meningismus, ly mphadenopathy Respiratory exam: Present: normal lung sounds bilaterally. Absent: respiratory distress, wheezes, rales, rhonchi, stridor Cardiovascular Exam: Present: regular rate, normal rhythm, normal heart sounds. Absent: systolic murmur, diastolic murmur, rubs, gallop, clicks GI/Abdominal exam: Present: soft, normal bowel sounds. Absent: distended, tenderness, guarding, rebound, rigid Extremities exam: Present: normal inspection, full ROM, normal capillary refill. Absent: tenderness, pedal edema, joint swelling, calf tenderness Back exam: Present: normal inspection Neurological exam: Present: alert, oriented X3, CN II-XII intact Psychiatric exam: Present: normal affect, normal mood Skin exam: Present: warm, dry, intact, normal color. Absent: rash <Kj Nixon - Last Filed: 04/21/23 06:27> - General Exam Comments Initial Comments: Visual Physical Exam Vital signs reviewed General: Well-appearing, nontoxic, no acute distress. Head: Normocephalic, atraumatic Eyes: PERRLA, EOMI ENT: Airway patent Chest: Nonlabored breathing Skin: No visual rash, normal skin tone Neuro: Alert and oriented 3 Musculoskeletal: No gross abnormalities (Megan Estevez) Course <Kj Nixon - Last Filed: 04/21/23 06:27> Vital Signs 04/12/23 04/12/23 04/12/23 16:49 19:40 21:19 Temperature 98.5 F 98.6 F Pulse Rate 95 100 94 Respiratory 20 18 16 Rate Blood Pressure 125/66 117/66 118/76 O2 Sat by Pulse 95 96 96 Oximetry - Reevaluation(s) Reevaluation #1: 04/12/23 19:26 Medical record is reviewed (Kj Nixon) Reevaluation #2: 04/12/23 19:26 Patient symptoms unchanged (Kj Nixon) Reevaluation #3: 04/12/23 19:26 Patient informed of results and questions answered (Kj Nixon) Reevaluation #4: Was pt. sent in by a medical professional or institution (DURAN Ansari, [employer], urgent care, hospital, or detention...) When possible be specific @ -no Did you speak to anyone other than the patient for history (EMS, parent, family, police, friend...)? What history was obtained from this source @ -no Did you review nursing and triage notes (agree or disagree)? Why? @ -agree Are old charts reviewed (outside hosp., previous admission, EMS record, old EKG, old radiological studies, urgent care reports/EKG's, detention records)? Report findings @ -yes Differential Diagnosis (chest pain, altered mental status, abdominal pain women, abdominal pain men, vaginal bleeding, weakness, fever, dyspnea, syncope, headache, dizziness, GI bleed, back pain, seizure, CVA, palpatations, mental health, musculoskeletal)? @ -prior EKG interpreted by me (3pts min.). @ -no X-rays interpreted by me (1pt min.). @ -yes negative for acute disease CT interpreted by me (1pt min.). @ -no U/S interpreted by me (1pt. min.). @ -no What testing was considered but not performed or refused? (CT, X-rays, U/S, labs)? Why? @ -none What meds were considered but not given or refused? Why? @ -none Did you discuss the management of the patient with other professionals (professionals i.e. DURAN Ansari, [employer], lab, RT, psych nurse, manager social services, warehouse supervisor, teacher, sewage reticulation drafting officer, director of casework services)? Give summary @ -no Was smoking cessation discussed for >3mins.? @ -no Was critical care preformed (if so, how long)? @ -no Were there social determinants of health that impacted care today? How? (Homelessness, low income, unemployed, alcoholism, drug addiction, transportation, low edu. Level, literacy, decrease access to med. care, long-term, rehab)? @ -none Was there de-escalation of care discussed even if they declined (Discuss DNR or withdrawal of care, Hospice)? DNR status @ -no What co-morbidities impacted this encounter? (DM, HTN, Smoking, COPD, CAD, Cancer, CVA, ARF, Chemo, Hep., AIDS, mental health diagnosis, sleep apnea, morbid obesity)? @ -none Was patient admitted / discharged? Hospital course, mention meds given and route, prescriptions, significant lab abnormalities, going to OR and other pertinent info. @ - 77 male with chemotherapy-induced weakness. Patient's symptoms are improved throughout ER stay abdominal pain is improved nausea vomiting is improved and patient can be discharged home Discharge Undiagnosed new problem with uncertain prognosis? @ -no Drug Therapy requiring intensive monitoring for toxicity (Heparin, Nitro, Insulin, Cardizem)? @ -no Were any procedures done? @ -no Diagnosis/symptom? @ -Chemotherapy and weakness Acute, or Chronic, or Acute on Chronic? @ -Acute Uncomplicated (without systemic symptoms) or Complicated (systemic symptoms)? @ -Complicated Side effects of treatment? @ -no Exacerbation, Progression, or Severe Exacerbation? @ -exacerbation Poses a threat to life or bodily function? How? (Chest pain, [place], [place], pneumonia, PE, COPD, DKA, ARF, appy, cholecystitis, CVA, Diverticulitis, Homicidal, Suicidal, threat to staff... and all critical care pts) @ -yes with extremes of age (Kj Nixon) Reevaluation #5: Differential Weakness: Hypoglycemia, shock, sepsis, hyponatremia, anemia, infection, [place], ETOH, adverse medicine reaction, overdose, stroke, this is not meant to be an all-inclusive list. (Kj Nixon) Medical Decision Making - Lab Data Result diagrams: 04/12/23 17:16 04/12/23 17:16 <Megan Estevez - Last Filed: 04/13/23 11:36> - Lab Data Result diagrams: 04/12/23 17:16 04/12/23 17:16 - Radiology Data Radiology results: report reviewed (Chest x-ray is negative for acute disease), image reviewed <Kj Nixon - Last Filed: 04/21/23 06:27> - Medical Decision Making Quick note preformed by Megan Estevez PA-C (Megan Estevez) 77 male with chemotherapy-induced weakness. Patient's symptoms are improved throughout ER stay abdominal pain is improved nausea vomiting is improved and patient can be discharged home (Kj Nixon) - Lab Data Lab Results 04/12/23 04/12/23 04/12/23 Range/Units 17:16 17:16 17:16 WBC 0.7 L* (3.8-10.6) k/uL RBC 2.49 L (4.30-5.90) m/uL Hgb 8.1 L (13.0-17.5) gm/dL Hct 24.4 L (39.0-53.0) % MCV 97.8 (80.0-100.0) fL MCH 32.6 (25.0-35.0) pg MCHC 33.3 (31.0-37.0) g/dL RDW 17.2 H (11.5-15.5) % Plt Count 81 L (150-450) k/uL MPV 10.2 Differential Comment Manual Slide Review Perf Hypochromasia Slight Poikilocytosis Slight Anisocytosis Slight Anisocytosis (manual) Present Macrocytosis Slight PT 11.5 (10.0-12.5) sec INR 1.1 (<1.2) APTT 24.3 (22.0-30.0) sec Sodium (137-145) mmol/L Potassium (3.5-5.1) mmol/L Chloride (98-107) mmol/L Carbon Dioxide (22-30) mmol/L Anion Gap mmol/L BUN (9-20) mg/dL Creatinine (0.66-1.25) mg/dL Est GFR (CKD-EPI)AfAm (>60 ml/min/1.73 sqM) Est GFR (CKD-EPI)NonAf (>60 ml/min/1.73 sqM) Glucose (74-99) mg/dL Calcium (8.4-10.2) mg/dL Total Bilirubin (0.2-1.3) mg/dL AST (17-59) U/L ALT (4-49) U/L Alkaline Phosphatase (38-126) U/L Total Protein (6.3-8.2) g/dL Albumin (3.5-5.0) g/dL Lipase (23-300) U/L Urine Color Light Yellow Urine Appearance Clear (Clear) Urine pH 5.0 (5.0-8.0) Ur Specific [place] 1.011 (1.001-1.035) Urine Protein Negative (Negative) Urine Glucose (UA) Negative (Negative) Urine Ketones Negative (Negative) Urine Blood Small H (Negative) Urine Nitrite Negative (Negative) Urine Bilirubin Negative (Negative) Urine Urobilinogen <2.0 (<2.0) mg/dL Ur Leukocyte Esterase Negative (Negative) Urine RBC 1 (0-5) /hpf Urine WBC 1 (0-5) /hpf Ur Squamous Epith Cells <1 (0-4) /hpf Urine Mucus Occasional H (None) /hpf 04/12/23 Range/Units 17:16 WBC (3.8-10.6) k/uL RBC (4.30-5.90) m/uL Hgb (13.0-17.5) gm/dL Hct (39.0-53.0) % MCV (80.0-100.0) fL MCH (25.0-35.0) pg MCHC (31.0-37.0) g/dL RDW (11.5-15.5) % Plt Count (150-450) k/uL MPV Differential Comment Manual Slide Review Hypochromasia Poikilocytosis Anisocytosis Anisocytosis (manual) Macrocytosis PT (10.0-12.5) sec INR (<1.2) APTT (22.0-30.0) sec Sodium 139 (137-145) mmol/L Potassium 3.4 L (3.5-5.1) mmol/L Chloride 103 (98-107) mmol/L Carbon Dioxide 29 (22-30) mmol/L Anion Gap 7 mmol/L BUN 16 (9-20) mg/dL Creatinine 0.84 (0.66-1.25) mg/dL Est GFR (CKD-EPI)AfAm >90 (>60 ml/min/1.73 sqM) Est GFR (CKD-EPI)NonAf 84 (>60 ml/min/1.73 sqM) Glucose 119 H (74-99) mg/dL Calcium 8.7 (8.4-10.2) mg/dL Total Bilirubin 0.9 (0.2-1.3) mg/dL AST 32 (17-59) U/L ALT 15 (4-49) U/L Alkaline Phosphatase 101 (38-126) U/L Total Protein 7.1 (6.3-8.2) g/dL Albumin 3.9 (3.5-5.0) g/dL Lipase 118 (23-300) U/L Urine Color Urine Appearance (Clear) Urine pH (5.0-8.0) Ur Specific [place] (1.001-1.035) Urine Protein (Negative) Urine Glucose (UA) (Negative) Urine Ketones (Negative) Urine Blood (Negative) Urine Nitrite (Negative) Urine Bilirubin (Negative) Urine Urobilinogen (<2.0) mg/dL Ur Leukocyte Esterase (Negative) Urine RBC (0-5) /hpf Urine WBC (0-5) /hpf Ur Squamous Epith Cells (0-4) /hpf Urine Mucus (None) /hpf Disposition Is patient prescribed a controlled substance at d/c from ED?: No <Megan Estevez - Last Filed: 04/13/23 11:36> Time of Disposition: 21:00 <Kj Nixon - Last Filed: 04/21/23 06:27> Clinical Impression: Gastroenteritis, Weakness, Chemotherapy adverse reaction Disposition: HOME SELF-CARE Instructions (If sedation given, give patient instructions): Weakness (ED) Referrals: Nalini Palmer MD [Primary Care Provider] - 1-2 days
[2023-04-12 17:38] LABS: Anisocytosis Slight; HCT 24.4 % (39.0-53.0); HGB 8.1 gm/dL (13.0-17.5); Hypochromasia Slight; MCH 32.6 pg (25.0-35.0); MCHC 33.3 g/dL (31.0-37.0); MCV 97.8 fL (80.0-100.0); Macrocytosis Slight; Mean Platelet Volume 10.2; Poikilocytosis Slight; RBC 2.49 m/uL (4.30-5.90); RDW 17.2 % (11.5-15.5)
[2023-04-12 17:49] LABS: ALT 15 U/L (4-49); AST 32 U/L (17-59); African American GFR (CKD) >90 (>60 ml/min/1.73 sqM); Albumin 3.9 g/dL (3.5-5.0); Alkaline Phosphatase 101 U/L (38-126); Anion Gap 7 mmol/L; Blood Urea Nitrogen 16 mg/dL (9-20); Calcium 8.7 mg/dL (8.4-10.2); Carbon Dioxide 29 mmol/L (22-30); Chloride 103 mmol/L (98-107); Glucose 119 mg/dL (74-99); Lipase 118 U/L (23-300); Non-African American GFR(CKD) 84 (>60 ml/min/1.73 sqM); Potassium 3.4 mmol/L (3.5-5.1); Sodium 139 mmol/L (137-145); Total Bilirubin 0.9 mg/dL (0.2-1.3); Total Protein 7.1 g/dL (6.3-8.2)
[2023-04-12 17:59] LABS: INR 1.1 (<1.2); Partial Thromboplastin Time 24.3 sec (22.0-30.0); Prothrombin Time 11.5 sec (10.0-12.5)
[2023-04-12 18:11] LABS: WBC 0.7 k/uL (3.8-10.6)
[2023-04-12 18:27] LABS: Anisocytosis (M) Present; Platelet Count 81 k/uL (150-450)
[2023-04-12] MEDS: HYDROmorphone 1 MG/ML 1 ML SYRINGE IVP STA (18:34)
[2023-04-12] MEDS: ONDANSETRON 4 MG/2 ML VIAL IVP STA (18:35)
--- NOTE | 2023-04-12 18:56 | XR ---
EXAMINATION TYPE: XR chest 1V portable DATE OF EXAM: 04/12/2023 Comparison: 03/19/2023 Clinical History: 77-year-old male pain Findings: Hazy peripheral lung densities likely related to portable technique and body habitus. Heart borderlin e in size. Mild hyperinflation. No zoila consolidation or pleural effusion seen. Impression: Borderline heart size. Suspected underlying COPD. Hazy densities related to portable technique and salvador dy habitus. No definite acute process.
[2023-04-12 21:11] LABS: Appearance,Urine Clear (Clear); Bilirubin,Urine Negative (Negative); Blood,Urine Small (Negative); Color,Urine Light Yellow; Glucose,Urine (UA) Negative (Negative); Ketones,Urine Negative (Negative); Leukocyte Esterase,Urine Negative (Negative); Mucus,Urine Occasional /hpf; Nitrite,Urine Negative (Negative); Protein,Urine Negative (Negative); RBC,Urine 1 /hpf (0-5); Specific Gravity,Urine 1.011 (1.001-1.035); Squamous Epithelial Cell,Urine <1 /hpf (0-4); Urobilinogen,Urine <2.0 mg/dL (<2.0); WBC,Urine 1 /hpf (0-5)
[2023-04-12 21:43] VITALS: BP 118/76; PULSE 94; RESP 16; TEMP 98.6
== END 2023-04-12 21:21 | disposition home or self-care (01) ==
LOC: EC 16:20
DX: K52.9 Noninfective gastroenteritis and colitis, unspecified (principal); T45.1X5A Adverse effect of antineoplastic and immunosuppressive drugs, initial encounter; C34.90 Malignant neoplasm of unspecified part of unspecified bronchus or lung; I10 Essential (primary) hypertension; J45.909 Unspecified asthma, uncomplicated; E78.5 Hyperlipidemia, unspecified; Z79.51 Long term (current) use of inhaled steroids; Z79.899 Other long term (current) drug therapy; Z87.891 Personal history of nicotine dependence
CPT/HCPCS: 36415; 80053; 83690; 85025; 85610; 85730; 81001; 71045; 99284; 96374; 96375; J2405; J1170

== ENCOUNTER 2023-04-14 17:24 | Inpatient (IN) | payer MEDICARE ==
--- NOTE | 2023-04-14 18:03 | ED ---
General Adult HPI - General Source: patient, RN notes reviewed Mode of arrival: ambulatory Limitations: no limitations <Asya Morrison - Last Filed: 04/14/23 18:02> <Juan Lawson - Last Filed: 04/15/23 03:45> - General Chief complaint: Chest Pain Stated complaint: shoulder/chest/abd pain Time Seen by Provider: 04/14/23 18:02 - History of Present Illness Initial comments: Patient is a 77-year-old male presented ER with a chief complaint of chest pain and shortness of breath. Patient was seen by Dr. Hogan earlier today and found to have a hemoglobin of 6.8. Patient is undergoing cancer treatment. (Asya Morrison) Patient is a 77-year-old male who presents emergency department with abdominal pain. Has a history of lung cancer, last received chemotherapy 1 week ago. Also has a history of COPD/asthma, hypertension. States that for the last few days, has been having nausea, nonbilious nonbloody emesis, as well as intermittent diarrhea. Has been unable to hold any food down. Presents for further evaluation at this time. Was seen for similar complaints 2 days ago and discharged home. States he has not been eating much since that time. He is not on blood thinners. He has known anemia and pancytopenia from the chemotherapy. Patient has orders to obtain CT imaging of the chest abdomen pelvis from his oncologist. I evaluated the patient when he was placed in room. Workup originally started by triage. Earlier today, hemoglobin was 6.9 and he was sent here for possible transfusion.Denies any blood in his stool or emesis. (Juan Lawson) - Related Data Home Medications Medication Instructions Recorded Confirmed Aspirin 81 mg PO HS 01/03/14 01/03/14 Atorvastatin [Lipitor] 20 mg PO HS 01/03/14 01/03/14 Baclofen 10 mg PO HS 01/03/14 01/03/14 Cholecalciferol [Vitamin D3] 1,000 unit PO DAILY 01/03/14 01/03/14 Doxazosin [Cardura] 4 mg PO DAILY 01/03/14 01/03/14 Enalapril [Vasotec] 5 mg PO DAILY 01/03/14 01/03/14 Furosemide [Lasix] 40 mg PO DAILY 01/03/14 01/03/14 Gabapentin 600 mg PO TID 01/03/14 01/03/14 Meloxicam [Mobic] 7.5 mg PO HS 01/03/14 01/03/14 Metaxalone 400 mg PO DAILY 01/03/14 01/03/14 Metoprolol Succinate (ER) [Toprol 25 mg PO HS 01/03/14 01/03/14 XL] Multivitamins, Thera [Multivitamin] 1 each PO DAILY 01/03/14 01/03/14 Omeprazole [PriLOSEC] 20 mg PO DAILY 01/03/14 01/03/14 Potassium Chloride [Klor-Con 10] 10 meq PO DAILY 01/03/14 01/03/14 Pramipexole Di-HCl [Mirapex] 0.5 mg PO DAILY 01/03/14 01/03/14 Pramipexole Di-HCl [Mirapex] 1.5 mg PO HS 01/03/14 01/03/14 allopurinoL [Zyloprim] 100 mg PO DAILY 01/03/14 01/03/14 Allergies Allergy/AdvReac Type Severity Reaction Status Date / Time No Known Allergies Allergy Verified 04/14/23 17:51 Review of Systems ROS Other: All systems not noted in ROS Statement are negative. <Asya Morrison - Last Filed: 04/14/23 18:02> ROS Other: All systems not noted in ROS Statement are negative. <Juan Lawson - Last Filed: 04/15/23 03:45> ROS Statement: Those systems with pertinent positive or pertinent negative responses have been documented in the HPI. Review of Systems: CONST: Denies fever EYES: Denies blurry vision ENT: Denies nasal congestion C/V: Denies Chest pain RESP: Denies shortness of breath GI: Endorses abdominal pain : Denies dysuria SKIN: Denies rash. MSK: Endorses chronic left shoulder pain. NEURO: Denies headache (Juan Lawson) Past Medical History Past Medical History: Asthma, GERD/Reflux, Hyperlipidemia, Hypertension, Pneumonia, Prostate Disorder, Sleep Apnea/CPAP/BIPAP Additional Past Medical History / Comment(s): cardiomyopathy, hiatal hernia, anemia History of Any Multi-Drug Resistant Organisms: None Reported Past Surgical History: Hernia Repair, Joint Replacement, Orthopedic Surgery Additional Past Surgical History / Comment(s): colonoscopy,EGD, Antonina hip replacments, antonina fx ankles, screws removed from rt ankle Past Anesthesia/Blood Transfusion Reactions: No Reported Reaction Past Psychological History: No Psychological Hx Reported Smoking Status: Former smoker Past Alcohol Use History: None Reported Past Drug Use History: None Reported <Asya Morrison - Last Filed: 04/14/23 18:02> General Exam Limitations: no limitations <Asya Morrison - Last Filed: 04/14/23 18:02> <Juan Lawson - Last Filed: 04/15/23 03:45> - General Exam Comments Initial Comments: Visual Physical Exam Vital signs reviewed General: Well-appearing, nontoxic, no acute distress. Mildly jaundiced Head: Normocephalic, atraumatic Eyes: PERRLA, EOMI ENT: Airway patent Chest: Nonlabored breathing Skin: No visual rash, normal skin tone Neuro: Alert and oriented 3 Musculoskeletal: No gross abnormalities (Asya Morrison) General: Appears in mild distress. HEAD: Normal with no signs of head trauma. EYES: PERRLA, EOMI, conjunctiva normal, no discharge. ENT: Hearing grossly intact, normal oropharynx. RESPIRATORY: Clear breath sounds bilaterally. No wheezes, rales, or rhonchi. C/V: Regular rate and rhythm. S1 and S2 auscultated, Chronic leg edema, pe ripheral pulses 2+ and intact throughout ABD: Abdomen is soft, tender to palpation diffusely. No focal tenderness. No guarding. No rebound tenderness. No peritoneal signs. EXT: Normal range of motion, no obvious deformity. Left shoulder pain worse with movement. SKIN: No rashes or lesions observed on exposed skin. NEURO: Alert and oriented x 4. (Juan Lawson) Course Vital Signs 04/14/23 04/15/23 04/15/23 17:48 00:50 02:33 Temperature 98 F Pulse Rate 102 H 85 87 Respiratory 18 18 16 Rate Blood Pressure 98/59 129/62 96/53 O2 Sat by Pulse 95 97 96 Oximetry Medical Decision Making <Asya Morrison - Last Filed: 04/14/23 18:02> - Lab Data Result diagrams: 04/14/23 19:40 04/14/23 19:40 - EKG Data -: EKG Interpreted by Me <Juan Lawson - Last Filed: 04/15/23 03:45> - Medical Decision Making I performed the quick note portion of the exam. Electronically signed by Asya Morrison PA-C (Asya Morrison) Was pt. sent in by a medical professional or institution (DURAN Ansari, MEDICAL DOCTOR MD/MEDICAL DIRECTOR, urgent care, hospital, or [facility]...) When possible be specific @ -No Did you speak to anyone other than the patient for history (EMS, parent, family, police, friend...)? What history was obtained from this source @ -No Did you review nursing and triage notes (agree or disagree)? Why? @ -I reviewed and agree with nursing and triage notes Were old charts reviewed (outside hosp., previous admission, EMS record, old EKG, old radiological studies, urgent care reports/EKG's, [facility] records)? Report findings @ -Old charts reviewed Differential Diagnosis (chest pain, altered mental status, abdominal pain women, abdominal pain men, vaginal bleeding, weakness, fever, dyspnea, syncope, headache, dizziness, GI bleed, back pain, seizure, CVA, palpatations, mental health, musculoskeletal)? @ -Differential Abdominal Pain Men: Appendicitis, cholecystitis, diverticulosis, ischemic bowel, pancreatitis, hepatitis, UTI, gastroenteritis, AAA, incarcerated hernia, bowel obstruction, constipation, inflammatory bowel, hepatitis, peptic ulcer disease, splenic infarction, perforated viscus, testicular torsion, this is not meant to be an all-inclusive list EKG interpreted by me (3pts min.). @ -As above X-rays interpreted by me (1pt min.). @ -Chest x-ray reveals no obvious acute cardiopulmonary process. CT interpreted by me (1pt min.). @ -CT imaging revealed metastasis to the sternum of his cancer. No other obvious findings seen. U/S interpreted by me (1pt. min.). @ -None done What testing was considered but not performed or refused? (CT, X-rays, U/S, labs)? Why? @ -None What meds were considered but not given or refused? Why? @ -None Did you discuss the management of the patient with other professionals (professionals i.e. DURAN Ansari, MEDICAL DOCTOR MD/MEDICAL DIRECTOR, lab, RT, psych nurse, social security specialist, animal pathologist, teacher, veterinary medical officer, rehabilitation case coordinator)? Give summary @ -I spoke with the admitting team, BRITTANIE Lennon of [facility] who accepted the admission. Was smoking cessation discussed for >3mins.? @ -No Was critical care preformed (if so, how long)? @ -No Were there social determinants of health that impacted care today? How? (Homelessness, low income, unemployed, alcoholism, drug addiction, transportation, low edu. Level, literacy, decrease access to med. care, [facility], rehab)? @ -No Was there de-escalation of care discussed even if they declined (Discuss DNR or withdrawal of care, Hospice)? DNR status @ -No What co-morbidities impacted this encounter? (DM, HTN, Smoking, COPD, CAD, Can cer, CVA, ARF, Chemo, Hep., AIDS, mental health diagnosis, sleep apnea, morbid obesity)? @ -Lung cancer currently on chemo. Was patient admitted / discharged? Hospital course, mention meds given and route, prescriptions, significant lab abnormalities, going to OR and other pertinent info. @ -Based on the patient's presentation and physical exam, presents with abdominal pain, nausea, vomiting, diarrhea. Is on chemo. Is a cancer patient. Has been affecting him for multiple days. Was found to be anemic at an appointment with his oncologist earlier and was sent here for further evaluation. Also has orders for chest abdomen pelvis CAT scan with and without contrast. Patient is afebrile. Vital signs within acceptable limits. He will be symptomatically treated with IV fluids, as well as morphine and Zofran. Workup was started in triage and was remarkable for pancytopenia, slightly worse from 2 days ago. Patient is also hypomagnesemic to 1.5 which is replenished. Hemoglobin is improved from earlier to 7.1, was 6.8 at the office. No evidence of bleeding at this time. He is not on blood thinners. Viral swabs are negative. I evaluated patient when he was placed in room after quick note was started. We will obtain CT imaging at this time as well as a urinalysis and lactic acid. He is afebrile with pancytopenia, however no obvious infection therefore we will hold off on antibiotics at this time. He will likely be admitted for evaluation by oncology and observation. He was in agreement this plan. Patient does not require transfusion at this time as hemoglobin is within acceptable limits at 7.1. No active bleeding.Patient is neutropenic but not febrile. I do not believe that antibiotics are required at this time. Patient's lactic acid returned normal as well as a normal urine. CT imaging unremarkable for any obvious acute process to explain his symptoms. 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 At this time I still recommended admission to the hospital. They were in agreement this plan. He is tolerating oral intake. He will be symptomatically treated and oncology will be consulted to evaluate him. They can repeat CBC in the morning to see if he requires transfusion or not. Patient was in agreement this plan. I spoke with the admitting team, BRITTANIE Lennon of [facility] who accepted the admission. Oncology consulted. Undiagnosed new problem with uncertain prognosis? @ -No Drug Therapy requiring intensive monitoring for toxicity (Heparin, Nitro, Insuli n, Cardizem)? @ -No Were any procedures done? @ -No Diagnosis/symptom? @ -Intractable nausea and vomiting, abdominal pain of unknown etiology, pancytopenia in the setting of lung cancer with metastasis on chemo, hypomagnesemia Acute, or Chronic, or Acute on Chronic? @ -Acute Uncomplicated (without systemic symptoms) or Complicated (systemic symptoms)? @ -Complicated Side effects of treatment? @ -None Exacerbation, Progression, or Severe Exacerbation] @ -No Poses a threat to life or bodily function? @ -Yes (Juan Lawson) - Lab Data Lab Results 04/14/23 04/14/23 04/14/23 Range/Units 19:40 19:40 19:40 WBC 0.8 L* (3.8-10.6) k/uL RBC 2.15 L (4.30-5.90) m/uL Hgb 7.1 L (13.0-17.5) gm/dL Hct 21.0 L (39.0-53.0) % MCV 97.5 (80.0-100.0) fL MCH 33.0 (25.0-35.0) pg MCHC 33.9 (31.0-37.0) g/dL RDW 16.5 H (11.5-15.5) % Plt Count 39 L D (150-450) k/uL MPV 9.9 Differential Comment Manual Slide Review Performed Poikilocytosis Slight Anisocytosis Slight Macrocytosis Slight PT 11.0 (10.0-12.5) sec INR 1.0 (<1.2) APTT 25.4 (22.0-30.0) sec Sodium 138 (137-145) mmol/L Potassium 3.8 (3.5-5.1) mmol/L Chloride 105 (98-107) mmol/L Carbon Dioxide 26 (22-30) mmol/L Anion Gap 7 mmol/L BUN 25 H (9-20) mg/dL Creatinine 0.90 (0.66-1.25) mg/dL Est GFR (CKD-EPI)AfAm >90 (>60 ml/min/1.73 sqM) Est GFR (CKD-EPI)NonAf 82 (>60 ml/min/1.73 sqM) Glucose 101 H (74-99) mg/dL Plasma Lactic Acid Ryan (0.7-2.0) mmol/L Calcium 8.5 (8.4-10.2) mg/dL Magnesium 1.5 L (1.6-2.3) mg/dL Total Bilirubin 0.8 (0.2-1.3) mg/dL AST 34 (17-59) U/L ALT 16 (4-49) U/L Alkaline Phosphatase 73 (38-126) U/L Troponin I (0.000-0.034) ng/mL Total Protein 6.6 (6.3-8.2) g/dL Albumin 3.7 (3.5-5.0) g/dL Urine Color Urine Appearance (Clear) Urine pH (5.0-8.0) Ur Specific [place] (1.001-1.035) Urine Protein (Negative) Urine Glucose (UA) (Negative) Urine Ketones (Negative) Urine Blood (Negative) Urine Nitrite (Negative) Urine Bilirubin (Negative) Urine Urobilinogen (<2.0) mg/dL Ur Leukocyte Esterase (Negative) Urine RBC (0-5) /hpf Urine WBC (0-5) /hpf Ur Squamous Epith Cells (0-4) /hpf Hyaline Casts (0-2) /lpf Urine Mucus (None) /hpf Influenza Type A (PCR) (Not Detectd) Influenza Type B (PCR) (Not Detectd) RSV (PCR) (Not Detectd) SARS-CoV-2 (PCR) (Not Detectd) Blood Type Blood Type Recheck Bld Type Recheck Status Antibody Screen Spec Expiration Date 04/14/23 04/14/23 04/15/23 Range/Units 19:40 19:40 00:36 WBC (3.8-10.6) k/uL RBC (4.30-5.90) m/uL Hgb (13.0-17.5) gm/dL Hct (39.0-53.0) % MCV (80.0-100.0) fL MCH (25.0-35.0) pg MCHC (31.0-37.0) g/dL RDW (11.5-15.5) % Plt Count (150-450) k/uL MPV Differential Comment Manual Slide Review Poikilocytosis Anisocytosis Macrocytosis PT (10.0-12.5) sec INR (<1.2) APTT (22.0-30.0) sec Sodium (137-145) mmol/L Potassium (3.5-5.1) mmol/L Chloride (98-107) mmol/L Carbon Dioxide (22-30) mmol/L Anion Gap mmol/L BUN (9-20) mg/dL Creatinine (0.66-1.25) mg/dL Est GFR (CKD-EPI)AfAm (>60 ml/min/1.73 sqM) Est GFR (CKD-EPI)NonAf (>60 ml/min/1.73 sqM) Glucose (74-99) mg/dL Plasma Lactic Acid Ryan (0.7-2.0) mmol/L Calcium (8.4-10.2) mg/dL Magnesium (1.6-2.3) mg/dL Total Bilirubin (0.2-1.3) mg/dL AST (17-59) U/L ALT (4-49) U/L Alkaline Phosphatase (38-126) U/L Troponin I <0.012 (0.000-0.034) ng/mL Total Protein (6.3-8.2) g/dL Albumin (3.5-5.0) g/dL Urine Color Urine Appearance (Clear) Urine pH (5.0-8.0) Ur Specific [place] (1.001-1.035) Urine Protein (Negative) Urine Glucose (UA) (Negative) Urine Ketones (Negative) Urine Blood (Negative) Urine Nitrite (Negative) Urine Bilirubin (Negative) Urine Urobilinogen (<2.0) mg/dL Ur Leukocyte Esterase (Negative) Urine RBC (0-5) /hpf Urine WBC (0-5) /hpf Ur Squamous Epith Cells (0-4) /hpf Hyaline Casts (0-2) /lpf Urine Mucus (None) /hpf Influenza Type A (PCR) Not Detected (Not Detectd) Influenza Type B (PCR) Not Detected (Not Detectd) RSV (PCR) Not Detected (Not Detectd) SARS-CoV-2 (PCR) Not Detected (Not Detectd) Blood Type B Negative Blood Type Recheck B Neg Bld Type Recheck Status No Antibody Screen NEGATIVE Spec Expiration Date 04/18/2023 - 233504/15/23 04/15/23 Range/Units 00:36 00:36 WBC (3.8-10.6) k/uL RBC (4.30-5.90) m/uL Hgb (13.0-17.5) gm/dL Hct (39.0-53.0) % MCV (80.0-100.0) fL MCH (25.0-35.0) pg MCHC (31.0-37.0) g/dL RDW (11.5-15.5) % Plt Count (150-450) k/uL MPV Differential Comment Manual Slide Review Poikilocytosis Anisocytosis Macrocytosis PT (10.0-12.5) sec INR (<1.2) APTT (22.0-30.0) sec Sodium (137-145) mmol/L Potassium (3.5-5.1) mmol/L Chloride (98-107) mmol/L Carbon Dioxide (22-30) mmol/L Anion Gap mmol/L BUN (9-20) mg/dL Creatinine (0.66-1.25) mg/dL Est GFR (CKD-EPI)AfAm (>60 ml/min/1.73 sqM) Est GFR (CKD-EPI)NonAf (>60 ml/min/1.73 sqM) Glucose (74-99) mg/dL Plasma Lactic Acid Ryan 1.1 (0.7-2.0) mmol/L Calcium (8.4-10.2) mg/dL Magnesium (1.6-2.3) mg/dL Total Bilirubin (0.2-1.3) mg/dL AST (17-59) U/L ALT (4-49) U/L Alkaline Phosphatase (38-126) U/L Troponin I (0.000-0.034) ng/mL Total Protein (6.3-8.2) g/dL Albumin (3.5-5.0) g/dL Urine Color Yellow Urine Appearance Clear (Clear) Urine pH 5.5 (5.0-8.0) Ur Specific [place] 1.016 (1.001-1.035) Urine Protein Trace H (Negative) Urine Glucose (UA) Negative (Negative) Urine Ketones Negative (Negative) Urine Blood Small H (Negative) Urine Nitrite Negative (Negative) Urine Bilirubin Negative (Negative) Urine Urobilinogen <2.0 (<2.0) mg/dL Ur Leukocyte Esterase Negative (Negative) Urine RBC 4 (0-5) /hpf Urine WBC 2 (0-5) /hpf Ur Squamous Epith Cells <1 (0-4) /hpf Hyaline Casts 3 H (0-2) /lpf Urine Mucus Rare H (None) /hpf Influenza Type A (PCR) (Not Detectd) Influenza Type B (PCR) (Not Detectd) RSV (PCR) (Not Detectd) SARS-CoV-2 (PCR) (Not Detectd) Blood Type Blood Type Recheck Bld Type Recheck Status Antibody Screen Spec Expiration Date - EKG Data EKG Comments: 12-lead Electrocardiogram Interpretation Note EKG was reviewed and interpreted by myself. 12-lead ECG performed at 1944 is interpreted by me as revealing normal sinus rhythm at a rate of 92 beats per minute. [place] is normal. DC interval is 150 ms, QRS duration is 99 ms, QTc is 414 ms.. There were no ST or T wave abnormalities to suggest myocardial ischemia or injury. R wave progression across the precordium was satisfactory. By my interpretation this EKG is non-diagnostic for acute ischemia. (Juan Lawson) Disposition <Asya Morrison - Last Filed: 04/14/23 18:02> Time of Disposition: 03:10 <Juan Lawson - Last Filed: 04/15/23 03:45> Clinical Impression: Pancytopenia, Intractable nausea and vomiting, Abdominal pain of unknown etiology, Hypomagnesemia, Lung cancer Disposition: ADMITTED IP TO THIS HOSP Condition: Stable
--- NOTE | 2023-04-14 19:34 | XR ---
EXAMINATION TYPE: XR chest 2V DATE OF EXAM: 04/14/2023 COMPARISON: 04/12/2023 HISTORY: 77-year-old male with chest pain TECHNIQUE: PA and lateral views FINDINGS: Mild hyperinflation. Borderline heart size. Aorta and pulmonary vasculature within normal limits. No consolidation or pleural effusion. IMPRESSION: Borderline heart size and COPD. No acute process seen.
[2023-04-14 20:12] LABS: Anisocytosis Slight; HGB 7.1 gm/dL (13.0-17.5); MCHC 33.9 g/dL (31.0-37.0); MCV 97.5 fL (80.0-100.0); Macrocytosis Slight; Mean Platelet Volume 9.9; Poikilocytosis Slight; RBC 2.15 m/uL (4.30-5.90); RDW 16.5 % (11.5-15.5)
[2023-04-14 20:31] LABS: Partial Thromboplastin Time 25.4 sec (22.0-30.0)
[2023-04-14 20:35] LABS: ALT 16 U/L (4-49); African American GFR (CKD) >90 (>60 ml/min/1.73 sqM); Albumin 3.7 g/dL (3.5-5.0); Anion Gap 7 mmol/L; Blood Urea Nitrogen 25 mg/dL (9-20); Calcium 8.5 mg/dL (8.4-10.2); Carbon Dioxide 26 mmol/L (22-30); Chloride 105 mmol/L (98-107); Glucose 101 mg/dL (74-99); Non-African American GFR(CKD) 82 (>60 ml/min/1.73 sqM); Sodium 138 mmol/L (137-145); Total Bilirubin 0.8 mg/dL (0.2-1.3); Total Protein 6.6 g/dL (6.3-8.2)
[2023-04-14 20:50] LABS: WBC 0.8 k/uL (3.8-10.6)
[2023-04-14 21:14] LABS: AST 34 U/L (17-59); Alkaline Phosphatase 73 U/L (38-126); Magnesium 1.5 mg/dL (1.6-2.3)
[2023-04-14 21:15] LABS: Potassium 3.8 mmol/L (3.5-5.1)
[2023-04-14 21:50] LABS: Platelet Count 39 k/uL (150-450)
[2023-04-15] MEDS: MORPHINE SULFATE 4 MG/ML SYRINGE IVP STA (00:46)
[2023-04-15] MEDS: MAGNESIUM SULFATE-D5W PMX 1 GM in DEXTROSE/WATER 1 100ML.BAG IVPB ONE (00:47)
[2023-04-15] MEDS: ONDANSETRON 4 MG/2 ML VIAL IVP STA (00:47)
[2023-04-15] MEDS: SODIUM CHLORIDE 0.9% 500 ML 500 ML IV STA (00:48)
[2023-04-15 01:24] LABS: Appearance,Urine Clear (Clear); Bilirubin,Urine Negative (Negative); Blood,Urine Small (Negative); Color,Urine Yellow; Glucose,Urine (UA) Negative (Negative); Hyaline Casts,Urine 3 /lpf (0-2); Ketones,Urine Negative (Negative); Leukocyte Esterase,Urine Negative (Negative); Mucus,Urine Rare /hpf; Nitrite,Urine Negative (Negative); PH, Urine 5.5 (5.0-8.0); Protein,Urine Trace (Negative); RBC,Urine 4 /hpf (0-5); Specific Gravity,Urine 1.016 (1.001-1.035); Squamous Epithelial Cell,Urine <1 /hpf (0-4); Urobilinogen,Urine <2.0 mg/dL (<2.0); WBC,Urine 2 /hpf (0-5)
--- NOTE | 2023-04-15 02:55 | CT ---
575 images EXAM: CT Chest Without and With Intravenous Contrast CLINICAL HISTORY: came to with complaint of chest pain and nausea that started 2 days ago and has been intermittent. Pt is undergoing lung/bone ca treatment. Pt is now having abdominal pain. H/O hiatal hernia repair, asthma, HTN, prostate disorder, TECHNIQUE: Axial computed tomography images of the chest without and with intravenous contrast. CTDI is in the superior gender is in the 15.34 mGy and DLP is 856.25 mGy-cm. This CT exam was performed using one or more of the following dose reduction techniques: automated exposure control, adjustment of the mA and/or kV according to patient size, and/or use of iterative reconstruction technique. Coronal and sagittal reformatted images were created and reviewed. COMPARISON: CTA chest from a 03/19/2023 FINDINGS: Lungs: Linear consolidation leading up to a 2.4 cm rounded right nodule in posterior and medial left lower lobe, similar on comparison study. Pleural space: Unremarkable. No pneumothorax. No significant effusion. Heart: Moderate cardiomegaly. Small amount of coronary and aortic annular calcifications. No significant pericardial effusion. 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 Previously identified left acromial metastasis is not included in the field of view. Soft tissues: As above. Vasculature: Unremarkable. No thoracic aortic aneurysm. Lymph nodes: Unremarkable. No enlarged lymph nodes. IMPRESSION: 1. Linear consolidation leading up to a 2.4 cm rounded right nodule in posterior and medial left lower lobe, similar on comparison study. 2. Sternal metastasis 3. No substantial change from comparison study EXAM: CT Abdomen and Pelvis Without and With Intravenous Contrast CLINICAL HISTORY: came to with complaint of chest pain and nausea that started 2 days ago and has been intermittent. Pt is undergoing lung/bone ca treatment. Pt is now having abdominal pain. H/O hiatal hernia repair, asthma, HTN, prostate disorder, TECHNIQUE: Axial computed tomography images of the abdomen and pelvis without and with intravenous contrast. CTDI is 15.34 mGy and DLP is 856.25 mGy-cm. This CT exam was performed using one or more of the following dose reduction techniques: automated exposure control, adjustment of the mA and/or kV according to patient size, and/or use of iterative reconstruction technique. Coronal and sagittal reformatted images were created and reviewed. COMPARISON: PET CT from 01/21/23 FINDINGS: Limitations: Limitation: Motion artifact decreases the sensitivity of this exam. Lung bases: Unremarkable. No mass. No consolidation. ABDOMEN: Liver: Unremarkable. No mass. Gallbladder and bile ducts: Unremarkable. No calcified stones. No ductal dilation. Pancreas: Unremarkable. No mass. No ductal dilation. Spleen: Unremarkable. No splenomegaly. Adrenals: Unremarkable. No mass. Kidneys and ureters: Simple small bilateral renal cysts. No follow-up of these simple cysts is necessary. No obstructing stones. No hydronephrosis. Stomach and bowel: Unremarkable. No obstruction. No mucosal thickening. PELVIS: Appendix: No findings to suggest acute appendicitis. Bladder: Unremarkable. No mass. No stones. Reproductive: Unremarkable as visualized. ABDOMEN and PELVIS: Intraperitoneal space: Unremarkable. No free air. No significant fluid collection. Bones/joints: Total bilateral hip replacement prostheses cause large amount of streak artifact, which decreases the sensitivity on associated images. Moderate degenerative changes. Osteopenia. Soft tissues: Unremarkable. Vasculature: Large amount of atherosclerotic calcifications. Lymph nodes: Unremarkable. No enlarged lymph nodes. IMPRESSION: No acute findings within the abdomen or pelvis.
[2023-04-15] MEDS ORDERED: MORPHINE SULFATE 4 MG/ML SYRINGE IV PRN (03:16)
[2023-04-15] MEDS ORDERED: NALOXONE 0.4 MG/ML 1 ML VIAL IV PRN (03:16)
[2023-04-15] MEDS: ONDANSETRON 4 MG/2 ML VIAL IVP PRN (09:13)
[2023-04-15] MEDS ORDERED: HYDROcodone/APAP 10-325MG 1 EACH TAB PO PRN (16:34)
[2023-04-15] MEDS: carvediloL 3.125 MG TAB PO SCH (17:17)
--- NOTE | 2023-04-15 19:36 | P.HPIM ---
History of Present Illness H&P Date: 04/15/23 Chief Complaint: Chest pain/abdominal pain 77-year-old male who presents emergency department with abdominal pain. Has a history of lung cancer, last received chemotherapy 1 week ago. Also has a history of COPD/asthma, hypertension. States that for the last few days, has been having nausea, nonbilious nonbloody emesis, as well as intermittent diarrhea. Has been unable to hold any food down. Presents for further evaluation at this time. Was seen for similar complaints 2 days ago and discharged home. States he has not been eating much since that time. He is not on blood thinners. He has known anemia and pancytopenia from the chemotherapy. Patient has orders to obtain CT imaging of the chest abdomen pelvis from his oncologist. Blood work completed in ED reveals a WBC of 0.8, hemoglobin of 7.1 and platelet count of 39, sodium 138, potassium 3.8, BUN/creatinine of 25/0.9 and blood glucose of 101 EKG completed in ED was negative for any acute ST or T wave changes Chest x-ray does not reveal any obvious acute cardiopulmonary process CT of the chest and abdomen reveals metastases to sternum; no acute abnormality noted Review of Systems REVIEW OF SYSTEMS: CONSTITUTIONAL: No fever, no malaise, no fatigue. HEENT: No recent visual problems or hearing problems. Denied any sore throat. CARDIOVASCULAR: No chest pain, orthopnea, PND, no palpitations, no syncope. PULMONARY: No shortness of breath, no cough, no hemoptysis. GASTROINTESTINAL: abdominal pain with nausea and vomiting. NEUROLOGICAL: No headaches, no weakness, no numbness. HEMATOLOGICAL: Denies any bleeding or petechiae. GENITOURINARY: Denies any burning micturition, frequency, or urgency. MUSCULOSKELETAL/RHEUMATOLOGICAL: Denies any joint pain, swelling, or any muscle pain. ENDOCRINE: Denies any polyuria or polydipsia. The rest of the 14-point review of systems is negative. Past Medical History Past Medical History: Asthma, Cancer, GERD/Reflux, Hyperlipidemia, Hypertension, Pneumonia, Prostate Disorder, Sleep Apnea/CPAP/BIPAP Additional Past Medical History / Comment(s): cardiomyopathy, hiatal hernia, anemia, lung cancer diagnosed 12/29/2022 (last chemo finished 04/07/2023) History of Any Multi-Drug Resistant Organisms: None Reported Past Surgical History: Hernia Repair, Joint Replacement, Orthopedic Surgery Additional Past Surgical History / Comment(s): colonoscopy,EGD, Scotty hip replacments, scotty fx ankles, screws removed from rt ankle Past Anesthesia/Blood Transfusion Reactions: No Reported Reaction Smoking Status: Former smoker Medications and Allergies Home Medications Medication Instructions Recorded Confirmed Type Furosemide [Lasix] 40 mg PO DAILY 01/03/14 04/15/23 History Pramipexole Di-HCl [Mirapex] 1.5 mg PO BID 01/03/14 04/15/23 History allopurinoL [Zyloprim] 100 mg PO HS 01/03/14 04/15/23 History Albuterol Sulfate [Albuterol 1 - 2 puff PO RT-Q4H PRN 04/15/23 04/15/23 History Sulfate Hfa] Ergocalciferol (Vitamin D2) 1,250 mcg PO WEEKLY 04/15/23 04/15/23 History [Drisdol (50,000 Iu)] Ferrous Sulfate [Feosol] 325 mg PO DAILY 04/15/23 04/15/23 History Fluticasone Propion/Salmeterol 1 puff IN RT-BID 04/15/23 04/15/23 History [Advair 250-50 Diskus] HYDROcodone/APAP 10-325MG [[place] 1 tab PO Q6HR PRN 04/15/23 04/15/23 History 10-325] Montelukast [Singulair] 10 mg PO HS 04/15/23 04/15/23 History Morphine Sulfate ER [Ms Contin] 30 mg PO Q12HR 04/15/23 04/15/23 History Ondansetron Odt [Zofran Odt] 8 mg PO Q8HR PRN 04/15/23 04/15/23 History Rosuvastatin [Crestor] 20 mg PO DAILY 04/15/23 04/15/23 History Tamsulosin [Flomax] 0.4 mg PO DAILY 04/15/23 04/15/23 History carvediloL [Coreg] 3.125 mg PO BID 04/15/23 04/15/23 History Allergies Allergy/AdvReac Type Severity Reaction Status Date / Time No Known Allergies Allergy Verified 04/15/23 07:52 Physical Exam Vitals: Vital Signs Temp Pulse Pulse Resp BP BP Pulse Ox 04/15/23 07:39 97.9 F 100 16 143/74 91 L 04/15/23 05:48 90 18 97/62 96 04/15/23 04:13 85 16 95 04/15/23 02:33 87 16 96/53 96 04/15/23 00:50 85 18 129/62 97 04/14/23 17:48 98 F 102 H 18 98/59 95 Intake and Output 04/14/23 04/15/23 04/15/23 22:59 06:59 14:59 Other: Voiding Method Toilet Weight 99.79 kg 99.79 kg General: Appears in mild distress. HEAD: Normal with no signs of head trauma. EYES: PERRLA, EOMI, conjunctiva normal, no discharge. ENT: Hearing grossly intact, normal oropharynx. RESPIRATORY: Clear breath sounds bilaterally. No wheezes, rales, or rhonchi. C/V: Regular rate and rhythm. S1 and S2 auscultated, Chronic leg edema, peripheral pulses 2+ and intact throughout ABD: Abdomen is soft, tender to palpation diffusely. No focal tenderness. No guarding. No rebound tenderness. No peritoneal signs. EXT: Normal range of motion, no obvious deformity. Left shoulder pain worse with movement. SKIN: No rashes or lesions observed on exposed skin. NEURO: Alert and oriented x 4. Results CBC & Chem 7: 04/14/23 19:40 04/14/23 19:40 Labs: Abnormal Lab Results - Last 24 Hours (Table) 04/14/23 04/14/23 04/15/23 Range/Units 19:40 19:40 00:36 WBC 0.8 L* (3.8-10.6) k/uL RBC 2.15 L (4.30-5.90) m/uL Hgb 7.1 L (13.0-17.5) gm/dL Hct 21.0 L (39.0-53.0) % RDW 16.5 H (11.5-15.5) % Plt Count 39 L D (150-450) k/uL BUN 25 H (9-20) mg/dL Glucose 101 H (74-99) mg/dL Magnesium 1.5 L (1.6-2.3) mg/dL Urine Protein Trace H (Negative) Urine Blood Small H (Negative) Hyaline Casts 3 H (0-2) /lpf Urine Mucus Rare H (None) /hpf Thrombosis Risk Factor Assmnt - Choose All That Apply Each Factor Represents 1 point: Medical pt on bed rest, Serious lung disease incl. pneumonia (< 1month), Swollen legs (current) Each Risk Factor Represents 2 Points: Malignancy Each Risk Factor Represents 3 Points: Age 75 years or older Other congenital or acquired thrombophilia - If yes, enter type in comment: No Thrombosis Risk Factor Assessment Total Risk Factor Score: 8 Thrombosis Risk Factor Assessment Level: High Risk Assessment and Plan Assessment: 1. Abdominal pain with intractable nausea and vomiting; likely related to chemotherapy --Workup has been negative so far -- Continue with current pain control; symptomatic treatment for nausea and vomiting 2. Pancytopenia; chemotherapy related; we will monitor CBC closely and supplement as needed 3. Mildly renal injury/dehydration; patient has been placed on IV fluid hydration; monitor strict KATHY's, daily weights, renal function electrolytes 4. Hypertension; Coreg 3.125 mg daily 5. Hyperlipidemia; Lipitor 40 mg daily 6. COPD/asthma; Symbicort 80-4.5 mcg twice daily; Singulair 10 mg nightly 7. Restless leg syndrome; continue with home dose of Mirapex DVT prophylaxis; SCDs CODE STATUS; full code
--- NOTE | 2023-04-15 20:22 | P.CONS ---
History of Present Illness - Reason for Consult Consult date: 04/15/23 lung cancer Requesting physician: Juan Lawson - Chief Complaint n/v - History of Present Illness Mr. Babcock is a 77-year-old gentleman with a past medical history significant for COPD and lung cancer. He is a patient of Dr. Monica Keller. He was initially seen in consultation at [facility] on 01/07/2023. He had presented to the emergency department there with persistent left-sided chest discomfort radiating to the left shoulder, which had been occurring over 2 months prior to his presentation. CTA of the chest on 01/07/2023 was obtained to assess for pulmonary embolism, which was negative for PE, but did reveal enlarged left lower lung mass measuring 4.2 x 2.1 cm extending towards the pulmonary hilum. In addition, there was an erosive sternal mass measuring at least 3.4 x 2.5 cm along with possible lytic lesion at T1 vertebrae measuring up to 1.[address] of the head without contrast revealed no acute intracranial process. Biopsy of the sternal mass on 01/10/2023 revealed morphologic features consistent with both adenocarcinoma and neuroendocrine tumor. IHC was positive for TTF-1, synaptophysin, Napsin, and focal positivity for CD56 and high Ki-67 proliferative index. P40 and p63 were both negative. Following discharge, PET/CT obtained on 01/21/2023 at [facility] revealed mild FDG avidity in the lower lobe medial left lung nodule that was above the average liver SUV. There is increased FDG avidity in the sternal lesion as well as bone lesion in the posterior lateral left scapula. 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 Following his initial visit, there was a concern for potential of small cell lung cancer. He underwent 5 fractions of palliative radiation to the sternum and left scapula receiving a total of 35 Gy completed on 02/14/2023. He initiated cycle 1 of carboplatin/etoposide/Tecentriq due to this concern on 02/16/2023 through 02/18/2023. NGS from biopsy and circulating tumor DNA was significant for BRAF V600E mutation with no TP53 or RB1 mutations typically seen in small cell lung cancer. PD-L1 expression was less than 1%. Upon additional review of his pathology in light of his molecular profiling, it appears adenocarcinoma is the dominant histology with the synaptophysin being a component of adenocarcinoma with negative chromogranin. Moreover, molecular profiling did not reveal any typical mutations seen in small cell carcinoma. Treatment was switched to carboplatin/Alimta with cycle 1 on 03/17/2023 followed by cycle 2 on 04/07/2023 both given with colony growth stimulating factor. Since his last treatment, has had progressive fatigue with nausea and diarrhea prompting hospitalizations. At his clinic visit on 04/14 it was decided to hold on administering any further chemotherapy to allow him to recover from the 2 cycles of carboplatin/Alimta. After he has had recovery of his hematologic toxicities as well as GI toxicities, plan is to change treatment and initiate dabrafenib/trametinib Patient presented to the ER with complaints of abdominal pain and n/v. He states over the last couple days, he has been experiencing nausea and nonbilious nonbloody emesis with associated decrease in appetitie and being unable to hold food/fluids down. Also reporting intermittent diarrhea. Of note he was seen with similar complaints in the ER 3 days ago and was subsequently discharged home. Labs reviwed, WBC of 0.8, hemoglobin of 7.1 and platelet count of 39,000. Creatinine 0.9, GFR >90, LFTs/bilirubin normal. Chest x-ray negative for acute cardiopulmonary processes. CT chest abdomen pelvis revealed linear consolidation leading up to 2.4 cm rounded right nodule in posterior medial left lower lobe, similar to previous study. Sternal metastasis. No changes from previous study. With no acute findings within the abdomen pelvis. At todays visit, pt is sitting on edge of bed and reporting improvement in symptoms. Review of Systems 10 point ROS is negative except as stated in the HPI Past Medical History Past Medical History: Asthma, Cancer, GERD/Reflux, Hyperlipidemia, Hypertension, Pneumonia, Prostate Disorder, Sleep Apnea/CPAP/BIPAP Additional Past Medical History / Comment(s): cardiomyopathy, hiatal hernia, anemia, lung cancer diagnosed 12/29/2022 (last chemo finished 04/07/2023) History of Any Multi-Drug Resistant Organisms: None Reported Past Surgical History: Hernia Repair, Joint Replacement, Orthopedic Surgery Additional Past Surgical History / Comment(s): colonoscopy,EGD, Scotty hip replacme nts, scotty fx ankles, screws removed from rt ankle Past Anesthesia/Blood Transfusion Reactions: No Reported Reaction Smoking Status: Former smoker Medications and Allergies Home Medications Medication Instructions Recorded Confirmed Type Furosemide [Lasix] 40 mg PO DAILY 01/03/14 04/15/23 History Pramipexole Di-HCl [Mirapex] 1.5 mg PO BID 01/03/14 04/15/23 History allopurinoL [Zyloprim] 100 mg PO HS 01/03/14 04/15/23 History Albuterol Sulfate [Albuterol 1 - 2 puff PO RT-Q4H PRN 04/15/23 04/15/23 History Sulfate Hfa] Ergocalciferol (Vitamin D2) 1,250 mcg PO WEEKLY 04/15/23 04/15/23 History [Drisdol (50,000 Iu)] Ferrous Sulfate [Feosol] 325 mg PO DAILY 04/15/23 04/15/23 History Fluticasone Propion/Salmeterol 1 puff IN RT-BID 04/15/23 04/15/23 History [Advair 250-50 Diskus] HYDROcodone/APAP 10-325MG [[place] 1 tab PO Q6HR PRN 04/15/23 04/15/23 History 10-325] Montelukast [Singulair] 10 mg PO HS 04/15/23 04/15/23 History Morphine Sulfate ER [Ms Contin] 30 mg PO Q12HR 04/15/23 04/15/23 History Ondansetron Odt [Zofran Odt] 8 mg PO Q8HR PRN 04/15/23 04/15/23 History Rosuvastatin [Crestor] 20 mg PO DAILY 04/15/23 04/15/23 History Tamsulosin [Flomax] 0.4 mg PO DAILY 04/15/23 04/15/23 History carvediloL [Coreg] 3.125 mg PO BID 04/15/23 04/15/23 History Allergies Allergy/AdvReac Type Severity Reaction Status Date / Time No Known Allergies Allergy Verified 04/15/23 07:52 Physical Exam Vitals: Vital Signs Temp Pulse Pulse Resp BP BP Pulse Ox 04/15/23 07:39 97.9 F 100 16 143/74 91 L 04/15/23 05:48 90 18 97/62 96 04/15/23 04:13 85 16 95 02/16/24 02:33 87 16 96/53 96 04/15/23 00:50 85 18 129/62 97 04/14/23 17:48 98 F 102 H 18 98/59 95 Intake and Output 04/14/23 04/15/23 04/15/23 22:59 06:59 14:59 Other: Voiding Method Toilet Weight 99.79 kg 99.79 kg - Constitutional General appearance: no acute distress - EENT Eyes: anicteric sclerae, EOMI ENT: hearing grossly normal - Respiratory Respiratory: bilateral: CTA - Cardiovascular Rhythm: regular Heart sounds: normal: S1, S2 - Gastrointestinal General gastrointestinal: soft, no tenderness - Integumentary Integumentary: no cyanotic, pale - Musculoskeletal Musculoskeletal: generalized weakness, strength equal bilaterally - Psychiatric Psychiatric: A&O x's 3 Results CBC & Chem 7: 04/14/23 19:40 04/14/23 19:40 Labs: Abnormal Lab Results - Last 24 Hours (Table) 04/14/23 04/14/23 04/15/23 Range/Units 19:40 19:40 00:36 WBC 0.8 L* (3.8-10.6) k/uL RBC 2.15 L (4.30-5.90) m/uL Hgb 7.1 L (13.0-17.5) gm/dL Hct 21.0 L (39.0-53.0) % RDW 16.5 H (11.5-15.5) % Plt Count 39 L D (150-450) k/uL BUN 25 H (9-20) mg/dL Glucose 101 H (74-99) mg/dL Magnesium 1.5 L (1.6-2.3) mg/dL Urine Protein Trace H (Negative) Urine Blood Small H (Negative) Hyaline Casts 3 H (0-2) /lpf Urine Mucus Rare H (None) /hpf Chest x-ray: report reviewed CT scan - abdomen: report reviewed CT scan - chest: report reviewed CT scan - pelvis: report reviewed Assessment and Plan (1) Intractable nausea and vomiting Current Visit: Yes Status: Acute Priority: High Code(s): R11.2 - NAUSEA WITH VOMITING, UNSPECIFIED SNOMED Code(s): 496893367 (2) Lung cancer Current Visit: Yes Status: Acute Priority: High Code(s): C34.90 - MALIGNANT NEOPLASM OF UNSP PART OF UNSP BRONCHUS OR LUNG SNOMED Code(s): 199531364 (3) Pancytopenia Current Visit: Yes Status: Acute Priority: High Code(s): D61.818 - OTHER PANCYTOPENIA SNOMED Code(s): 284367725 Plan: Metastatic lung adenocarcinoma: -Full history in HPI -Changed treatment to carboplatin/Alimta with cycle 1 on 03/17/2023 followed by cycle 2 on 04/07/2023 both given with colony growth stimulating factor. Since his last treatment, has had progressive fatigue with nausea and diarrhea prompting hospitalizations. At his clinic visit on 04/14 it was decided to hold on administering any further chemotherapy to allow him to recover from the 2 cycles of carboplatin/Alimta. After he has had recovery of his hematologic toxicities as well as GI toxicities, plan is to change treatment and initiate dabrafenib/trametinib -Will continue to hold treatment at this time, and schedule clinic f/u upon discharge to reevaluate patient to ensure patient has adequately recovered prior to beginning further treatment Chemo induced n/v: -Supportive medications ordered. Reporting improvement since admission -Received 500cc NS bolus upon admission -Encouraged increasing oral intake/hydration as tolerated. Chemo induced pancytopenia: -CBC revealed, WBC of 0.8, hemoglobin of 7.1 and platelet count of 39,000. -G-CSF given on 04/08. Would expect improvement in white counts in the next 1-2 days -CBC in AM -Please transfuse for hgb less than 7 or platelets less than 10,000 or if symptomatic Doctor attests: I performed a history and physical examination of this patient, developed impression and plan of care. Discussed with dictator. I agree with dictators note, documented as a scribe.
[2023-04-15] MEDS: MORPHINE SULFATE ER 30 MG TABLET PO SCH (21:34)
[2023-04-15] MEDS: allopurinoL 100 MG TAB PO SCH (21:34)
[2023-04-15] MEDS: PRAMIPEXOLE 0.5 MG TAB PO SCH (21:34)
[2023-04-15] MEDS: MONTELUKAST 10 MG TAB PO SCH (21:35)
[2023-04-16] MEDS: SYMBICORT 80-4.5 MCG INHALER INHALATION SCH (01:04)
[2023-04-16] MEDS: TAMSULOSIN 0.4 MG CAP.ER.24H PO SCH (10:03)
[2023-04-16] MEDS: ATORVASTATIN 40 MG TAB PO SCH (10:03)
[2023-04-16] MEDS: FUROSEMIDE 40 MG TAB PO SCH (10:03)
[2023-04-16] MEDS: FERROUS SULFATE 325 MG TAB PO SCH (10:03)
[2023-04-16 10:44] LABS: BUN/Creat Ratio 14.56 Ratio (12.00-20.00); Blood Urea Nitrogen 13.1 mg/dL (9.0-27.0); Calcium 8.3 mg/dL (8.7-10.3); Carbon Dioxide 28.4 mmol/L (21.6-31.8); Chloride 104 mmol/L (96-109); Glucose 90 mg/dL (70-110); Potassium 3.8 mmol/L (3.5-5.5); Sodium 144 mmol/L (135-145)
[2023-04-16 11:07] LABS: Basophils # (A) 0 X 10*3/uL (0.00-0.10); Basophils % (A) 0 %; Eosinophils # (A) 0 X 10*3/uL (0.04-0.35); Eosinophils % (A) 0 %; HCT 18.1 % (39.6-50.0); HGB 5.7 g/dL (13.0-17.0); Immature Platelet Fraction 12.7 % (1.1-6.1); Lymphocytes # (A) 0.59 X 10*3/uL (0.90-5.00); Lymphocytes % (A) 45.4 %; MCH 32.2 pg (27.0-32.0); MCHC 31.5 g/dL (32.0-37.0); MCV 102.3 FL (80.0-97.0); Mean Platelet Volume 13.9 FL (9.5-12.2); Monocytes % (A) 7.7 %; NRBC Per 100 WBC 0 X 10*3/uL (0.00-0.01); Neutrophils # (A) 0.59 X 10*3/uL (1.80-7.70); Neutrophils % (A) 45.4 %; Platelet Count 22 X 10*3/uL (140-440); RBC 1.77 X 10*6/uL (4.40-5.60); RDW 16.2 % (11.5-14.5)
[2023-04-16 14:42] VITALS: BMI 30.7
[2023-04-16] MEDS: FUROSEMIDE 10 MG/ML 2 ML VIAL IV ONE (17:24)
--- NOTE | 2023-04-16 20:46 | P.PN ---
Subjective Progress Note Date: 04/16/23 77-year-old male who presents emergency department with abdominal pain. Has a history of lung cancer, last received chemotherapy 1 week ago. Also has a history of COPD/asthma, hypertension. States that for the last few days, has been having nausea, nonbilious nonbloody emesis, as well as intermittent d iarrhea. Has been unable to hold any food down. Presents for further evaluation at this time. Was seen for similar complaints 2 days ago and discharged home. States he has not been eating much since that time. He is not on blood thinners. He has known anemia and pancytopenia from the chemotherapy. Patient has orders to obtain CT imaging of the chest abdomen pelvis from his oncologist. Blood work completed in ED reveals a WBC of 0.8, hemoglobin of 7.1 and platelet count of 39, sodium 138, potassium 3.8, BUN/creatinine of 25/0.9 and blood glucose of 101 EKG completed in ED was negative for any acute ST or T wave changes Chest x-ray does not reveal any obvious acute cardiopulmonary process CT of the chest and abdomen reveals metastases to sternum; no acute abnormality noted Objective - Vital Signs Vital signs: Vital Signs Temp 98.2 F 04/16/23 13:17 Pulse 77 04/16/23 13:17 Resp 16 04/16/23 13:17 BP 107/55 04/16/23 13:17 Pulse Ox 74 L 04/16/23 13:17 FiO2 Intake & Output 04/15/23 04/16/23 04/16/23 18:59 06:59 18:59 Intake Total 0 Output Total 600 Balance -600 0 Weight 99.79 kg Intake: Blood Product 0 Unit 0 Output: Urine 600 Other: Voiding Method Toilet Toilet Toilet Urinal Urinal # Voids 1 - Exam General: Appears in mild distress. HEAD: Normal with no signs of head trauma. EYES: PERRLA, EOMI, conjunctiva normal, no discharge. ENT: Hearing grossly intact, normal oropharynx. RESPIRATORY: Clear breath sounds bilaterally. No wheezes, rales, or rhonchi. C/V: Regular rate and rhythm. S1 and S2 auscultated, Chronic leg edema, peripheral pulses 2+ and intact throughout ABD: Abdomen is soft, tender to palpation diffusely. No focal tenderness. No guarding. No rebound tenderness. No peritoneal signs. EXT: Normal range of motion, no obvious deformity. Left shoulder pain worse with movement. SKIN: No rashes or lesions observed on exposed skin. NEURO: Alert and oriented x 4. - Labs CBC & Chem 7: 04/16/23 05:23 04/16/23 05:23 Labs: Abnormal Lab Results - Last 24 Hours (Table) 04/15/23 04/16/23 04/16/23 Range/Units 00:36 05:23 05:23 WBC 1.30 A* (4.50-10.00) X 10*3/uL RBC 1.77 L (4.40-5.60) X 10*6/uL Hgb 5.7 A* (13.0-17.0) g/dL Hct 18.1 A* (39.6-50.0) % MCV 102.3 H (80.0-97.0) FL MCH 32.2 H (27.0-32.0) pg MCHC 31.5 L (32.0-37.0) g/dL RDW 16.2 H (11.5-14.5) % Plt Count 22 L (140-440) X 10*3/uL MPV 13.9 H (9.5-12.2) FL Neutrophils # 0.59 L (1.80-7.70) X 10*3/uL Lymphocytes # 0.59 L (0.90-5.00) X 10*3/uL Monocytes # 0.10 L (0.20-1.00) X 10*3/uL Eosinophils # 0 L (0.04-0.35) X 10*3/uL Immature Plt Fraction 12.7 H (1.1-6.1) % Calcium 8.3 L (8.7-10.3) mg/dL Crossmatch See Detail Assessment and Plan Assessment: 1. Abdominal pain with intractable nausea and vomiting; likely related to chemotherapy --Workup has been negative so far -- Continue with current pain control; symptomatic treatment for nausea and vomiting 2. Pancytopenia; chemotherapy related; we will monitor CBC closely and supplement as needed 3. Mildly renal injury/dehydration; patient has been placed on IV fluid hydration; monitor strict KATHY's, daily weights, renal function electrolytes 4. Hypertension; Coreg 3.125 mg daily 5. Hyperlipidemia; Lipitor 40 mg daily 6. COPD/asthma; Symbicort 80-4.5 mcg twice daily; Singulair 10 mg nightly 7. Restless leg syndrome; continue with home dose of Mirapex DVT prophylaxis; SCDs CODE STATUS; full code
[2023-04-17 10:07] LABS: BUN/Creat Ratio 12.78 Ratio (12.00-20.00); Blood Urea Nitrogen 11.5 mg/dL (9.0-27.0); Calcium 8.2 mg/dL (8.7-10.3); Carbon Dioxide 30.3 mmol/L (21.6-31.8); Chloride 102 mmol/L (96-109); Glucose 101 mg/dL (70-110); Potassium 3.6 mmol/L (3.5-5.5); Sodium 142 mmol/L (135-145)
[2023-04-17 10:54] LABS: Basophils # (A) 0.01 X 10*3/uL (0.00-0.10); Basophils % (A) 0.7 %; Eosinophils # (A) 0 X 10*3/uL (0.04-0.35); Eosinophils % (A) 0 %; HCT 24.3 % (39.6-50.0); HGB 8.1 g/dL (13.0-17.0); Immature Platelet Fraction 17.4 % (1.1-6.1); Lymphocytes # (A) 0.65 X 10*3/uL (0.90-5.00); Lymphocytes % (A) 44.2 %; MCHC 33.3 g/dL (32.0-37.0); Monocytes # (A) 0.11 X 10*3/uL (0.20-1.00); Monocytes % (A) 7.5 %; NRBC Per 100 WBC 0 X 10*3/uL (0.00-0.01); Neutrophils # (A) 0.69 X 10*3/uL (1.80-7.70); Neutrophils % (A) 46.9 %; Platelet Count 22 X 10*3/uL (140-440); RBC 2.53 X 10*6/uL (4.40-5.60); WBC 1.47 X 10*3/uL (4.50-10.00)
[2023-04-17 11:58] LABS: Anisocytosis Slight; Basophils % (A) 0 %; Eosinophils % (A) 0 %; HCT 24.8 % (39.0-53.0); HGB 8.5 gm/dL (13.0-17.5); Hypochromasia Slight; Lymphocytes # (A) 0.4 k/uL (1.0-4.8); Lymphocytes % (A) 38 %; MCH 33.2 pg (25.0-35.0); MCHC 34.4 g/dL (31.0-37.0); MCV 96.3 fL (80.0-100.0); Macrocytosis Slight; Mean Platelet Volume 11.6; Monocytes # (A) 0.1 k/uL (0-1.0); Monocytes % (A) 6 %; Neutrophils # (A) 0.6 k/uL (1.3-7.7); Neutrophils % (A) 52 %; Poikilocytosis Slight; RBC 2.58 m/uL (4.30-5.90); RDW 16.5 % (11.5-15.5)
[2023-04-17 12:03] LABS: WBC 1.1 k/uL (3.8-10.6)
[2023-04-17 12:04] LABS: Platelet Count 23 k/uL (150-450)
[2023-04-18 02:11] VITALS: RESP 18
[2023-04-18 12:13] LABS: Basophils # (A) 0.01 X 10*3/uL (0.00-0.10); Basophils % (A) 0.6 %; Eosinophils # (A) 0 X 10*3/uL (0.04-0.35); Eosinophils % (A) 0 %; HGB 8.2 g/dL (13.0-17.0); Lymphocytes # (A) 0.69 X 10*3/uL (0.90-5.00); Lymphocytes % (A) 38.5 %; MCH 31.1 pg (27.0-32.0); MCHC 31.5 g/dL (32.0-37.0); MCV 98.5 FL (80.0-97.0); Mean Platelet Volume 14.3 FL (9.5-12.2); Monocytes # (A) 0.15 X 10*3/uL (0.20-1.00); Monocytes % (A) 8.4 %; NRBC Per 100 WBC 0 X 10*3/uL (0.00-0.01); Neutrophils # (A) 0.93 X 10*3/uL (1.80-7.70); Neutrophils % (A) 51.9 %; Platelet Count 21 X 10*3/uL (140-440); RBC 2.64 X 10*6/uL (4.40-5.60); RBC Morphology Normal (Normal); WBC 1.79 X 10*3/uL (4.50-10.00)
[2023-04-18] MEDS: SODIUM CHLORIDE 0.9% 1,000 ML IV SCH (13:10)
[2023-04-18 14:15] VITALS: BP 91/45; PULSE 90; TEMP 99.1
--- NOTE | 2023-04-18 18:11 | P.PN ---
Subjective Progress Note Date: 04/18/23 Principal diagnosis: NSCLC, N,V In follow-up today patient reports that nausea and vomiting is better, less episodes of diarrhea. He is actually very anxious to go home. No fevers, appetite is fair. He is ambulatory Objective - Vital Signs Vital signs: Vital Signs Temp 99.1 F 04/18/23 12:50 Pulse 90 04/18/23 12:50 Resp 18 04/18/23 12:50 BP 91/45 04/18/23 12:50 Pulse Ox 93 L 04/18/23 15:18 FiO2 Intake & Output 04/17/23 04/18/23 04/18/23 18:59 06:59 18:59 Other: Voiding Method Toilet Toilet Urinal Urinal # Voids 6 1 - Constitutional General appearance: Present: average body habitus, cooperative, no acute distress - EENT Eyes: Present: anicteric sclerae, EOMI ENT: Present: hearing grossly normal - Respiratory Respiratory: bilateral: CTA - Cardiovascular Rhythm: regular Heart sounds: normal: S1, S2 - Peripheral edema leg Peripheral Edema: bilateral: None - Gastrointestinal General gastrointestinal: Present: normal bowel sounds, soft - Neurologic Neurologic: Present: CNII-XII intact - Musculoskeletal Musculoskeletal: Present: strength equal bilaterally - Psychiatric Psychiatric: Present: A&O x's 3, appropriate affect, intact judgment & insight - Labs CBC & Chem 7: 04/18/23 06:52 04/17/23 06:08 Labs: Abnormal Lab Results - Last 24 Hours (Table) 04/18/23 Range/Units 06:52 WBC 1.79 L (4.50-10.00) X 10*3/uL RBC 2.64 L (4.40-5.60) X 10*6/uL Hgb 8.2 L (13.0-17.0) g/dL Hct 26.0 L (39.6-50.0) % MCV 98.5 H (80.0-97.0) FL MCHC 31.5 L (32.0-37.0) g/dL RDW 16.0 H (11.5-14.5) % Plt Count 21 L (140-440) X 10*3/uL MPV 14.3 H (9.5-12.2) FL Neutrophils # 0.93 L (1.80-7.70) X 10*3/uL Lymphocytes # 0.69 L (0.90-5.00) X 10*3/uL Monocytes # 0.15 L (0.20-1.00) X 10*3/uL Eosinophils # 0 L (0.04-0.35) X 10*3/uL Immature Plt Fraction 14.0 H (1.1-6.1) % Assessment and Plan (1) Intractable nausea and vomiting Current Visit: Yes Status: Acute Priority: High Code(s): R11.2 - NAUSEA WITH VOMITING, UNSPECIFIED SNOMED Code(s): 913063645 (2) Lung cancer Current Visit: Yes Status: Acute Priority: High Code(s): C34.90 - MALIGNANT NEOPLASM OF UNSP PART OF UNSP BRONCHUS OR LUNG SNOMED Code(s): 723404952 Plan: Intractable nausea and vomiting -Better today per pt -Suspect related to chemotherapy. -Recommended use of antiemetics half hour before meals as well as as needed to the max dose per day. New Rx was sent to pt pharmacy on 04/14 Non-small cell lung cancer -Chemotherapy has been discontinued -Patient is going to be being started on targeted oral agent in the near future. -Follow-up in the office next week, possible hydration unless patient is improving. Patient and family agree with the plan. Patient is feeling well enough for discharge. Patient is okay from a Hematology/Oncology standpoint to be discharged once he has been cleared by Attending and other consulting Physicians. Doctor attests: I performed a history and physical examination of this patient, developed impression and plan of care. Discussed with dictator. I agree with dictators note, documented as a scribe.
--- NOTE | 2023-04-20 14:26 | P.PN ---
Subjective Progress Note Date: 04/17/23 77-year-old male who presents emergency department with abdominal pain. Has a history of lung cancer, last received chemotherapy 1 week ago. Also has a history of COPD/asthma, hypertension. States that for the last few days, has been having nausea, nonbilious nonbloody emesis, as well as intermittent d iarrhea. Has been unable to hold any food down. Presents for further evaluation at this time. Was seen for similar complaints 2 days ago and discharged home. States he has not been eating much since that time. He is not on blood thinners. He has known anemia and pancytopenia from the chemotherapy. Patient has orders to obtain CT imaging of the chest abdomen pelvis from his oncologist. Blood work completed in ED reveals a WBC of 0.8, hemoglobin of 7.1 and platelet count of 39, sodium 138, potassium 3.8, BUN/creatinine of 25/0.9 and blood glucose of 101 EKG completed in ED was negative for any acute ST or T wave changes Chest x-ray does not reveal any obvious acute cardiopulmonary process CT of the chest and abdomen reveals metastases to sternum; no acute abnormality noted 04/17/2023 Patient is seen and evaluated in room with at bedside; d/w nursing staff; no specisic complaints reported vital signs are reviewed and stable Lab review reveals Hgb down to 6.7; we'll type and cross match and transfuse Objective - Vital Signs Vital signs: Vital Signs Temp 98.2 F 04/16/23 21:38 Pulse 86 04/16/23 21:38 Resp 16 04/16/23 21:38 BP 110/76 04/16/23 21:38 Pulse Ox 96 04/16/23 20:00 FiO2 Intake & Output 04/16/23 04/16/23 04/17/23 06:59 18:59 06:59 Intake Total 310 310 Balance 310 310 Weight 99.79 kg Intake: Blood Product 310 310 Rc Irr As1 Unit 0 310 [id number] Rc Irr As1 Unit 310 [id number] Other: Voiding Method Toilet Toilet Toilet Urinal Urinal Urinal # Voids 1 6 1 - Exam General: Appears in mild distress. HEAD: Normal with no signs of head trauma. EYES: PERRLA, EOMI, conjunctiva normal, no discharge. ENT: Hearing grossly intact, normal oropharynx. RESPIRATORY: Clear breath sounds bilaterally. No wheezes, rales, or rhonchi. C/V: Regular rate and rhythm. S1 and S2 auscultated, Chronic leg edema, peripheral pulses 2+ and intact throughout ABD: Abdomen is soft, tender to palpation diffusely. No focal tenderness. No guarding. No rebound tenderness. No peritoneal signs. EXT: Normal range of motion, no obvious deformity. Left shoulder pain worse with movement. SKIN: No rashes or lesions observed on exposed skin. NEURO: Alert and oriented x 4. - Labs CBC & Chem 7: 04/18/23 06:52 04/17/23 06:08 Labs: Abnormal Lab Results - Last 24 Hours (Table) 04/15/23 04/16/23 04/16/23 Range/Units 00:36 05:23 05:23 WBC 1.30 A* (4.50-10.00) X 10*3/uL RBC 1.77 L (4.40-5.60) X 10*6/uL Hgb 5.7 A* (13.0-17.0) g/dL Hct 18.1 A* (39.6-50.0) % MCV 102.3 H (80.0-97.0) FL MCH 32.2 H (27.0-32.0) pg MCHC 31.5 L (32.0-37.0) g/dL RDW 16.2 H (11.5-14.5) % Plt Count 22 L (140-440) X 10*3/uL MPV 13.9 H (9.5-12.2) FL Neutrophils # 0.59 L (1.80-7.70) X 10*3/uL Lymphocytes # 0.59 L (0.90-5.00) X 10*3/uL Monocytes # 0.10 L (0.20-1.00) X 10*3/uL Eosinophils # 0 L (0.04-0.35) X 10*3/uL Immature Plt Fraction 12.7 H (1.1-6.1) % Calcium 8.3 L (8.7-10.3) mg/dL Crossmatch See Detail Assessment and Plan Assessment: 1. Abdominal pain with intractable nausea and vomiting; likely related to chemotherapy --Workup has been negative so far -- Continue with current pain control; symptomatic treatment for nausea and vomiting 2. Pancytopenia; chemotherapy related; we will monitor CBC closely and supplement as needed 3. Mildly renal injury/dehydration; patient has been placed on IV fluid hydration; monitor strict KATHY's, daily weights, renal function electrolytes 4. Hypertension; Coreg 3.125 mg daily 5. Hyperlipidemia; Lipitor 40 mg daily 6. COPD/asthma; Symbicort 80-4.5 mcg twice daily; Singulair 10 mg nightly 7. Restless leg syndrome; continue with home dose of Mirapex DVT prophylaxis; SCDs CODE STATUS; full code
[2023-04-22] MEDS ORDERED: ERGOCALCIFEROL 1,250 MCG (50,000 IU) CAPSULE PO SCH (09:00)
== END 2023-04-18 19:38 | disposition home or self-care (01) | DRG 391 ==
LOC: EC 17:24 → 5NMEDONC 04-15 03:17
PROVIDERS: ADMIT Hospitalist; ATTEND Hospitalist
DX: R11.10 Vomiting, unspecified (principal); D61.810 Antineoplastic chemotherapy induced pancytopenia; C79.51 Secondary malignant neoplasm of bone; C34.90 Malignant neoplasm of unspecified part of unspecified bronchus or lung; I42.9 Cardiomyopathy, unspecified; T45.1X5A Adverse effect of antineoplastic and immunosuppressive drugs, initial encounter; X58.XXXA Exposure to other specified factors, initial encounter; D3A.8 Other benign neuroendocrine tumors; E83.42 Hypomagnesemia; Z11.52 Encounter for screening for COVID-19; G25.81 Restless legs syndrome; I10 Essential (primary) hypertension; K21.9 Gastro-esophageal reflux disease without esophagitis; I25.10 Atherosclerotic heart disease of native coronary artery without angina pectoris; E78.5 Hyperlipidemia, unspecified; E86.0 Dehydration; D64.9 Anemia, unspecified; Z87.01 Personal history of pneumonia (recurrent); Z79.51 Long term (current) use of inhaled steroids; Z79.82 Long term (current) use of aspirin; Z79.899 Other long term (current) drug therapy; Z85.118 Personal history of other malignant neoplasm of bronchus and lung; Z96.653 Presence of artificial knee joint, bilateral; Z87.19 Personal history of other diseases of the digestive system
CPT/HCPCS: 36415; 71046; 71270; 74178; 80048; 80053; 81001; 83605; 83735; 84484; 85025; 85610; 85730; 86850; 86900; 86901; 86920; 87636; 93005; 94640; 96365; 96375; 96376; 99285

== ENCOUNTER → 2023-04-20 | Outpatient (CLI) | payer MEDICARE ==
[2023-04-21 02:38] LABS: BUN/Creat Ratio 18.44 Ratio (12.00-20.00); Blood Urea Nitrogen 16.6 mg/dL (9.0-27.0); Calcium 8.7 mg/dL (8.7-10.3); Carbon Dioxide 32.2 mmol/L (21.6-31.8); Chloride 103 mmol/L (96-109); Glucose 117 mg/dL (70-110); Potassium 3.4 mmol/L (3.5-5.5); Sodium 145 mmol/L (135-145)
[2023-04-21 03:58] LABS: Basophils # (A) 0 X 10*3/uL (0.00-0.10); Basophils % (A) 0 %; Eosinophils # (A) 0 X 10*3/uL (0.04-0.35); Eosinophils % (A) 0 %; HCT 21.2 % (39.6-50.0); HGB 7.2 g/dL (13.0-17.0); Immature Platelet Fraction 19.7 % (1.1-6.1); Lymphocytes # (A) 0.73 X 10*3/uL (0.90-5.00); Lymphocytes % (A) 31.2 %; MCH 32.9 pg (27.0-32.0); MCV 96.8 FL (80.0-97.0); Monocytes # (A) 0.11 X 10*3/uL (0.20-1.00); Monocytes % (A) 4.7 %; NRBC Per 100 WBC 0 X 10*3/uL (0.00-0.01); Neutrophils # (A) 1.47 X 10*3/uL (1.80-7.70); Neutrophils % (A) 62.8 %; Platelet Count 11 X 10*3/uL (140-440); RBC 2.19 X 10*6/uL (4.40-5.60); RDW 15.5 % (11.5-14.5); WBC 2.34 X 10*3/uL (4.50-10.00)
== END | disposition home or self-care (01) ==
LOC: LABWHC1 14:37
PROVIDERS: ATTEND Nurse Practitioner Family
DX: D75.89 Other specified diseases of blood and blood-forming organs (principal)
CPT/HCPCS: 36415; 80048; 85025

== ENCOUNTER → 2023-05-27 | Outpatient (CLI) | payer MEDICARE ==
--- NOTE | 2023-05-27 16:45 | MR ---
MRI soft tissue neck with and without contrast HISTORY: Lung cancer. COMPARISON: None TECHNIQUE: Multiple axial images are obtained from the skull base through the thoracic inlet before a nd after the uneventful administration of contrast. Exam is significantly limited due to involuntary patient motion. Findings: The thyroid gland appears grossly normal. The larynx including the thyroid, arytenoid, cricoid cartilages and vocal cords are normal and symmet tapan. The tongue base, epiglottis, area of glottic folds, piriform sinuses and vallecula are normal and sym metric and there is no mass or pathological enhancement There is no parapharyngeal soft tissue mass or enhancement. The submandibular and parotid glands are normal in stature. The great vessels of the neck are grossly normal. There is no lymphadenopathy. The skull base is intact. IMPRESSION: Limited by involuntary motion but grossly no significant amount is seen.
== END | disposition home or self-care (01) ==
LOC: RADMRIMAIN 15:16
PROVIDERS: ATTEND Internal Medicine
DX: C34.32 Malignant neoplasm of lower lobe, left bronchus or lung (principal)
CPT/HCPCS: 70543; A9585

== ENCOUNTER → 2023-05-31 | Outpatient (CLI) | payer MEDICARE ==
--- NOTE | 2023-06-01 19:29 | MR ---
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 COMPARISON: 01/19/2023 TECHNIQUE: Multi planar, multi sequence imaging was performed through the brain including: T1, T2, In version recovery, susceptibility weighted imaging and gradient echo imaging and Diffusion weighted im aging. The patient was then given intravenous contrast and multi planar, T1 fat-saturation images wer e obtained. IV Contrast: 10 cc Gadavist FINDINGS: Mild cerebral atrophy with proportional dilation of ventricular system. Diffusion-weighted imaging s hows no evidence of restricted diffusion to suggest acute/subacute infarct. Intracranial arterial brie w voids are maintained. Midline structures show no abnormality. Scattered foci of high T2 signal inte nsity are seen within the periventricular white matter. The susceptibility weighted images do not rev eal any evidence for micro-hemorrhage. After administration of gadolinium, no abnormal enhancement is seen. The bone marrow signal is within normal limits. Paranasal sinuses and mastoid air cells: No significant paranasal sinus disease. Visualized orbits: Bilateral aphakia. IMPRESSION: 1. No evidence of intracranial mass, acute/subacute infarct, or abnormal enhancement. 2. Nonspecific white matter changes, likely related to small vessel ischemic disease.
== END | disposition home or self-care (01) ==
LOC: RADMRIMAIN 18:46
PROVIDERS: ATTEND Internal Medicine
DX: G93.89 Other specified disorders of brain (principal); C34.32 Malignant neoplasm of lower lobe, left bronchus or lung
CPT/HCPCS: 70553; A9585

== ENCOUNTER → 2023-06-01 | Outpatient (CLI) | payer MEDICARE ==
--- NOTE | 2023-06-03 11:13 | MR ---
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 TECHNIQUE: Multi planar, multi sequence imaging was performed utilizing: T1-weighted, T2-weighted, an d turbo inversion recovery imaging of the cervical spine. IV Contrast: 10 cc Gadobutrol (none if empty) FINDINGS: Alignment: The cervical vertebral bodies have preserved heights. Alignment is within normal limits gi tarsha patient positioning. Bones: Multilevel degeneration changes at the splenic large anterior osteophytes impressing upon the oropharynx and hypopharynx as well as the superior esophagus. Abnormal bone marrow signal is seen wit hin the T1 vertebral body which extends into the right transverse process. This is low T1 signal and demonstrates postcontrast enhancement. Other areas on prior MRI Neck of abnormal bone marrow signal i s thought to be present within the right rib 2 left rib 2. Cord: The spinal cord is unremarkable with regards to their signal intensity and morphology. Discs: Intervertebral disc signal is maintained. C2-C3: No significant disc pathology. The spinal canal is patent. No neural foraminal stenosis. C3-C4: A disc osteophyte complex is present with mild spinal canal stenosis. Bilateral facet and unc overtebral joint arthropathy are present with mild bilateral neural foraminal stenosis. C4-C5: No significant disc pathology. The spinal canal is patent. No neural foraminal stenosis. C5-C6: No significant disc pathology. The spinal canal is patent. No neural foraminal stenosis. C6-C7: No significant disc pathology. The spinal canal is patent. No neural foraminal stenosis. C7-T1: No significant disc pathology. The spinal canal is patent. No neural foraminal stenosis. Other: None. IMPRESSION: 1. T1 vertebral body is completely replaced with abnormal enhancing tissue compatible with metastati c disease. No significant spinal canal stenosis. There may be additional sites of abnormal bone signa l seen in right rib 2 and left rib 2. 2. on prior MR neck 05/27/2023. Follow-up PET/CTs recommended 3. Moderate multilevel degeneration changes with anterior bridging osteophytes extending from C2 to C6 which impresses upon the oropharynx hypopharynx in the proximal esophagus. 4. No evidence for significant spinal canal or neural foraminal stenosis.
== END | disposition home or self-care (01) ==
LOC: RADMRIMAIN 17:57
PROVIDERS: ATTEND Internal Medicine
DX: C34.32 Malignant neoplasm of lower lobe, left bronchus or lung (principal); M50.30 Other cervical disc degeneration, unspecified cervical region; M25.78 Osteophyte, vertebrae
CPT/HCPCS: 72156; A9585

== ENCOUNTER → 2023-06-14 | Outpatient (CLI) | payer MEDICARE ==
--- NOTE | 2023-06-14 16:49 | CA ---
Transthoracic Echo Report Name: Jett Babcock Age: 77 Gender: M : 1945 Exam Date: 06/14/2023 15:02 Exam Location: [facility] Ht (in): 71 Wt (lb): 214 Ordering Physician: Monica Leigh MD Attending/Referring Phys: Price Analyst Barb Sahni RDCS Procedure CPT: Indications: Z01.818 Chemo Cardiac Hx: Technical Quality: Fair Contrast 1: Total Dose (mL): Contrast 2: Total Dose (mL): MEASUREMENTS (Male / Female) Normal Values 2D ECHO LV Diastolic Diameter PLAX 5.6 cm 4.2 - 5.9 / 3.9 - 5.3 cm LV Systolic Diameter PLAX 3.6 cm IVS Diastolic Thickness 1.3 cm 0.6 - 1.0 / 0.6 - 0.9 cm LVPW Diastolic Thickness 1.0 cm 0.6 - 1.0 / 0.6 - 0.9 cm LV Relative Wall Thickness 0.4 RV Internal Dim ED PLAX 4.8 cm LVOT Diameter 2.2 cm LA Systolic Diameter LX 3.6 cm 3.0 - 4.0 / 2.7 - 3.8 cm LA Volume 89.1 cm??? 18 - 58 / 22 - 52 cm??? LA Volume Index 40.0 cm???/m??? 16 - 28 cm???/m??? M-MODE Aortic Root Diameter MM 3.7 cm AV Cusp Separation MM 1.5 cm DOPPLER AV Peak Velocity 270.7 cm/s AV Peak Gradient 29.3 mmHg AV Mean Velocity 185.1 cm/s AV Mean Gradient 15.5 mmHg AV Velocity Time Integral 61.7 cm AI Peak Velocity 464.2 cm/s AI Peak Gradient 86.2 mmHg AI Pressure Half Time 602.5 ms LVOT Peak Velocity 81.0 cm/s LVOT Peak Gradient 2.6 mmHg LVOT Velocity Time Integral 22.8 cm LVOT Stroke Volume 86.2 cm??? LVOT Stroke Volume Index 39.7 ml/m??? LVOT Cardiac Index 2708.5 cm???/min???m??? AV Area Cont Eq vti 1.4 cm??? AV Area Cont Eq pk 1.1 cm??? MV Area PHT 2.6 cm??? Mitral E Point Velocity 84.0 cm/s Mitral A Point Velocity 123.2 cm/s Mitral E to A Ratio 0.7 MV Deceleration Time 290.8 ms MV E' Velocity 4.6 cm/s Mitral E to MV E' Ratio 18.4 TR Peak Velocity 257.5 cm/s TR Peak Gradient 26.5 mmHg Right Ventricular Systolic Press 31.5 mmHg FINDINGS Left Ventricle Mildly increased left ventricular wall thickness. Left ventricular cavity size normal. Normal left ventricular systolic function with no obvious regional wall motion abnormalities. Left ventricular ejection fraction is estimated at 55-60 %. Grade 1 diastolic dysfunction. Right Ventricle Moderate right ventricular dilatation. Right ventricular systolic pressure within normal limits. Right Atrium Normal right atrial size. Left Atrium Moderately increased left atrial volume. Mildly increased left atrial area. Mitral Valve Structurally normal mitral valve. Mitral valve thickened. Mitral annular calcification. Moderate mitral regurgitation. Aortic Valve Trileaflet aortic valve. [id number] aortic stenosis with a peak gradient of 29 mmHg and a mean gradient of 16 mmHg. Mild aortic regurgitation. Tricuspid Valve Structurally normal tricuspid valve. Mild tricuspid regurgitation. Pulmonic Valve Structurally normal pulmonic valve. Pericardium No pericardial effusion. Aorta Normal size aortic root and proximal ascending aorta. CONCLUSIONS Normal LV function Enlarged left atrium Moderate mitral regurgitation Mild to moderate aortic stenosis Mild aortic regurgitant Previewed by: Dr. Wilman Dean MD (Electronically Signed) Final Date: 14 June 2023 16:48
== END | disposition home or self-care (01) ==
LOC: RADECHMAIN 14:46
PROVIDERS: ATTEND Internal Medicine
DX: Z01.812 Encounter for preprocedural laboratory examination (principal); C34.32 Malignant neoplasm of lower lobe, left bronchus or lung; C34.92 Malignant neoplasm of unspecified part of left bronchus or lung; I10 Essential (primary) hypertension; J44.9 Chronic obstructive pulmonary disease, unspecified
CPT/HCPCS: 93306

== ENCOUNTER → 2023-06-24 | Outpatient (CLI) | payer MEDICARE ==
--- NOTE | 2023-06-25 08:40 | PE ---
EXAMINATION TYPE: PET CT fusion skull to thigh DATE OF EXAM: 06/24/2023 CLINICAL INDICATION:Male, 77 years old with history of C34.32 LUNG CANCER; TECHNIQUE: Following the intravenous administration of 10.12 mCi of F-18 FDG, whole body images are performed from the skull base to the midthigh. Images are reviewed on the computer in the coronal, axial, and sagittal planes. Reconstructed rotating images are created on independent workstation and reviewed on the computer. A non-contrast CT is performed in conjunction with the PET scan. Glucose level 89 mg/dL CT DLP: 859.89 mGycm, Automated exposure control for dose reduction was used. COMPARISON: CT 04/15/2023, PET/CT 01/21/2023, MRI brain 05/31/2023. FINDINGS: Mediastinal SUV mean is 2.0. Hepatic parenchyma SUV mean is 2.6. SKULL BASE AND NECK: Left occiput abnormal lucent area max SUV 8.6 measuring [address] imaging CHEST, MEDIASTINUM, AND HILAR REGION: * Left perihilar abnormal uptake max SUV 7.2 extending from the pulmonary hilum towards the peripher y. * Peripheral nodule in the medial left lower lung max SUV 10.1 measuring 19 mm. ABDOMEN AND PELVIS: No suspicious radiotracer activity. MUSCULOSKELETAL STRUCTURES: Scattered areas of abnormal uptake within osseous structures. Left occiput max SUV 8.6 * Uptake around the odontoid process max SUV 5.5. * T1 vertebral body max SUV 9.0 * Left rib 2 Max SUV 7.4 * Anterior right rib 3 max SUV the stomach 5.3 * Inferior sternum max SUV 4.7 with destructive soft tissue mass measuring up to 4.5 x 3.4 cm, previ ously 4.2 x 2.2 cm. * Left acromion 5.1 with osseous destructive changes. OTHER CT: Bilaterally aphakia. Atherosclerosis of the arterial vasculature. Atherosclerosis of the co ronary arteries. Bilateral hip arthroplasty changes. Bilateral non-FDG avid probable renal cortical c ysts. IMPRESSION: Left perihilar and left lower lung nodule with increased uptake concerning for primary malignancy wit h evidence of scattered metastatic disease throughout the osseous structures.
== END | disposition home or self-care (01) ==
LOC: RADPETMAIN 12:26
PROVIDERS: ATTEND Internal Medicine
DX: C34.32 Malignant neoplasm of lower lobe, left bronchus or lung (principal); R91.1 Solitary pulmonary nodule
CPT/HCPCS: 78815; A9552

== ENCOUNTER → 2023-07-13 | Outpatient (CLI) | payer MEDICARE ==
--- NOTE | 2023-07-13 10:53 | XR ---
EXAMINATION TYPE: XR shoulder complete 3 views LT DATE OF EXAM: 07/13/2023 Comparison: 09/25/2018 Clinical History: 78-year-old male [id number] SWELLING HANDS, LT SHLD PAIN Findings: Redemonstrated moderate change at the AC joint but with bulky calcification or ossification at the AC joint capsule and inferior aspect of the lateral acromion. There is some bony irregularity at the gr eater tuberosity. Otherwise, the joint appears intact. No acute fracture is seen. Impression: Interval development of prominent calcification or ossification at the AC joint capsule and inferior aspect of the lateral acromion. Unclear if this represents heterotopic ossification relating to an in terval injury or depositional changes such as relating to gout or CPPD. Consider further orthopedic a ssessment.
--- NOTE | 2023-07-13 12:53 | XR ---
EXAMINATION TYPE: XR hand complete bilateral DATE OF EXAM: 07/13/2023 COMPARISON: NONE HISTORY: 78-year-old male [id number] SWELLING HANDS, LT SHLD PAIN TECHNIQUE: 3 views each side FINDINGS: There is severe degenerative change at the bilateral first CMC joints and moderate to severe at the l eft triscaphe joint, [id number] on the right. No marginal erosions or soft tissue calcification s are seen. Old mallet finger deformity left index finger. Mild degenerative spurring throughout the remainder of the DIP joints of both hands. Moderate degenerative change right third MCP joint. 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 Moderate to severe l eft triscaphe joint OA. Scattered mild OA throughout the DIP joints with old mallet finger deformity left index finger.
== END | disposition home or self-care (01) ==
LOC: RADXRYALE 09:09
PROVIDERS: ATTEND Internal Medicine
DX: M19.042 Primary osteoarthritis, left hand (principal); M19.041 Primary osteoarthritis, right hand; R22.33 Localized swelling, mass and lump, upper limb, bilateral

== ENCOUNTER → 2023-09-06 | Outpatient (CLI) | payer MEDICARE ==
--- NOTE | 2023-09-06 16:20 | XR ---
EXAMINATION TYPE: XR chest 2V DATE OF EXAM: 09/06/2023 3:51 PM CLINICAL INDICATION:Male, 78 years old with history of C34.32,C34.92,J44.9; COMPARISON: Chest radiographs from 04/14/2023. TECHNIQUE: XR chest 2V Frontal view of the chest. FINDINGS: Lungs/Pleura: Blunting of the left costophrenic angle. There is no evidence of right pleural effusion , focal consolidation, or pneumothorax. Pulmonary vascularity: Unremarkable. Heart/mediastinum: Cardiomediastinal silhouette is unremarkable. Musculoskeletal: No acute osseous pathology. IMPRESSION: New left pleural effusion.
== END | disposition home or self-care (01) ==
LOC: RADXRMAIN 15:36
PROVIDERS: ATTEND Internal Medicine
DX: C34.32 Malignant neoplasm of lower lobe, left bronchus or lung (principal); C34.92 Malignant neoplasm of unspecified part of left bronchus or lung; J44.9 Chronic obstructive pulmonary disease, unspecified; J90 Pleural effusion, not elsewhere classified; I10 Essential (primary) hypertension
CPT/HCPCS: 71046

== ENCOUNTER 2023-09-07 19:47 | Inpatient (IN) | payer MEDICARE ==
--- NOTE | 2023-09-07 20:05 | ED ---
Chest Pain HPI - General Chief Complaint: Chest Pain Stated Complaint: light headed,weakness Time Seen by Provider: 09/07/23 19:58 Source: patient, family, RN notes reviewed, old records reviewed Mode of arrival: wheelchair Limitations: no limitations - History of Present Illness Initial Comments: This is a 78-year-old male to the ER today for evaluation of low blood pressure low oxygen not feeling well a week. Patient was sent in by oncology for evaluation and treatment currently started on Toan ALANIZ Complaint: chest pain, other (Shortness of breath weakness chest pain) Onset: during rest, during exertion Pain Location: substernal Pain Radiation: none Severity: moderate Severity scale (1-10): 5 Quality: tightness, aching Consistency: constant Improves With: nothing, nitroglycerin Worsens With: nothing Anginal Symptoms: nausea, dyspnea, sense of impending doom Other Symptoms: palpitations Treatments Prior to Arrival: oxygen - Related Data Home Medications Medication Instructions Recorded Confirmed Furosemide [Lasix] 40 mg PO DAILY 01/03/14 06/08/23 Pramipexole Di-HCl [Mirapex] 1.5 mg PO BID 01/03/14 06/08/23 allopurinoL [Zyloprim] 100 mg PO HS 01/03/14 06/08/23 Albuterol Sulfate [Albuterol 1 - 2 puff PO RT-Q4H PRN 04/15/23 06/08/23 Sulfate Hfa] Ergocalciferol (Vitamin D2) 1,250 mcg PO WEEKLY 04/15/23 06/08/23 [Drisdol (50,000 Iu)] Ferrous Sulfate [Iron (65 MG 325 mg PO DAILY 04/15/23 06/08/23 Elemental)] Fluticasone Propion/Salmeterol 1 puff IN RT-BID 04/15/23 06/08/23 [Advair 250-50 Diskus] HYDROcodone/APAP 10-325MG [Morrow 1 tab PO Q6HR PRN 04/15/23 06/08/23 10-325] Montelukast [Singulair] 10 mg PO HS 04/15/23 06/08/23 Morphine Sulfate ER [Ms Contin] 30 mg PO Q12HR 04/15/23 06/08/23 Ondansetron Odt [Zofran ODT] 8 mg PO Q8HR PRN 04/15/23 06/08/23 Rosuvastatin [Crestor] 20 mg PO DAILY 04/15/23 06/08/23 Tamsulosin [Flomax] 0.4 mg PO DAILY 04/15/23 06/08/23 carvediloL [Coreg] 3.125 mg PO BID 04/15/23 06/08/23 Binimetinib [Mektovi] 15 mg PO DAILY 06/08/23 06/08/23 Encorafenib [Braftovi] 75 mg PO DAILY 06/08/23 06/08/23 Allergies Allergy/AdvReac Type Severity Reaction Status Date / Time No Known Allergies Allergy Verified 09/07/23 19:53 Review of Systems ROS Statement: Those systems with pertinent positive or pertinent negative responses have been documented in the HPI. ROS Other: All systems not noted in ROS Statement are negative. EKG Findings - EKG Comments: EKG Findings:: EKG is sinus 93 HI 155 QRS 102 QTc 403 - EKG Results: EKG: interpreted by SYLVIA Past Medical History Past Medical History: Asthma, Cancer, GERD/Reflux, Hyperlipidemia, Hypertension, Pneumonia, Prostate Disorder, Sleep Apnea/CPAP/BIPAP Additional Past Medical History / Comment(s): cardiomyopathy, hiatal hernia, anemia, lung cancer diagnosed 12/29/2022 (last chemo finished 04/07/2023) History of Any Multi-Drug Resistant Organisms: None Reported Past Surgical History: Hernia Repair, Joint Replacement, Orthopedic Surgery Additional Past Surgical History / Comment(s): colonoscopy,EGD, Antonina hip replacments, antonina fx ankles, screws removed from rt ankle Past Anesthesia/Blood Transfusion Reactions: No Reported Reaction Past Psychological History: Depression Smoking Status: Former smoker Past Alcohol Use History: Occasional Past Drug Use History: None Reported General Exam Limitations: no limitations General appearance: alert, in no apparent distress Head exam: Present: atraumatic, normocephalic, normal inspection Eye exam: Present: normal appearance, PERRL, EOMI. Absent: scleral icterus, conjunctival injection, periorbital swelling ENT exam: Present: normal exam, mucous membranes moist Neck exam: Present: normal inspection. Absent: tenderness, meningismus, lymphadenopathy Respiratory exam: Present: normal lung sounds bilaterally. Absent: respiratory distress, wheezes, rales, rhonchi, stridor Cardiovascular Exam: Present: regular rate, normal rhythm, normal heart sounds. Absent: systolic murmur, diastolic murmur, rubs, gallop, clicks GI/Abdominal exam: Present: soft, normal bowel sounds. Absent: distended, tenderness, guarding, rebound, rigid Extremities exam: Present: normal inspection, full ROM, normal capillary refill. Absent: tenderness, pedal edema, joint swelling, calf tenderness Back exam: Present: normal inspection Neurological exam: Present: alert, oriented X3, CN II-XII intact Psychiatric exam: Present: normal affect, normal mood Skin exam: Present: warm, dry, intact, normal color. Absent: rash Course Vital Signs 09/07/23 09/07/23 09/07/23 19:48 20:41 20:51 Temperature 97.8 F Pulse Rate 101 H 86 87 Respiratory 22 20 20 Rate Blood Pressure 89/50 77/43 84/47 O2 Sat by Pulse 85 L 93 L 94 L Oximetry 09/07/23 09/07/23 09/07/23 21:03 21:07 22:15 Temperature Pulse Rate 88 90 90 Respiratory 18 Rate Blood Pressure 89/57 O2 Sat by Pulse 92 L Oximetry 09/07/23 09/07/23 22:53 22:58 Temperature Pulse Rate 87 93 Respiratory Rate Blood Pressure O2 Sat by Pulse Oximetry - Reevaluation(s) Reevaluation #1: 09/07/23 22:30 Medical records reviewed Reevaluation #2: 09/07/23 22:30 Patient has severe hypoxia and hypotension Reevaluation #3: 09/07/23 22:30 Patient informed of results questions answered Reevaluation #4: Was pt. sent in by a medical professional or institution (, PA, GAME PRESERVE MANAGER, urgent care, hospital, or halfway...) When possible be specific @ -no Did you speak to anyone other than the patient for history (EMS, parent, family, police, friend...)? What history was obtained from this source @ -no Did you review nursing and triage notes (agree or disagree)? Why? @ -agree Are old charts reviewed (outside hosp., previous admission, EMS record, old EKG, old radiological studies, urgent care reports/EKG's, halfway records)? Report findings @ -yes Differential Diagnosis (chest pain, altered mental status, abdominal pain women, abdominal pain men, vaginal bleeding, weakness, fever, dyspnea, syncope, headache, dizziness, GI bleed, back pain, seizure, CVA, palpatations, mental health, musculoskeletal)? @ -prior EKG interpreted by me (3pts min.). @ -yes X-rays interpreted by me (1pt min.). @ -yes negative for acute disease CT interpreted by me (1pt min.). @ -no U/S interpreted by me (1pt. min.). @ -no What testing was considered but not performed or refused? (CT, X-rays, U/S, labs)? Why? @ -none What meds were considered but not given or refused? Why? @ -none Did you discuss the management of the patient with other professionals (professionals i.e. , PA, GAME PRESERVE MANAGER, lab, RT, psych nurse, social work faculty member, associate sales representative, teacher, air support control officer, spring encaser)? Give summary @ -no Was smoking cessation discussed for >3mins.? @ -no Was critical care preformed (if so, how long)? @ -no Were there social determinants of health that impacted care today? How? (Homelessness, low income, unemployed, alcoholism, drug addiction, transportation, low edu. Level, literacy, decrease access to med. care, [facility], rehab)? @ -none Was there de-escalation of care discussed even if they declined (Discuss DNR or withdrawal of care, Hospice)? DNR status @ -no What co-morbidities impacted this encounter? (DM, HTN, Smoking, COPD, CAD, Cancer, CVA, ARF, Chemo, Hep., AIDS, mental health diagnosis, sleep apnea, morbid obesity)? @ -none Was patient admitted / discharged? Hospital course, mention meds given and route, prescriptions, significant lab abnormalities, going to OR and other pertinent info. @ - Undiagnosed new problem with uncertain prognosis? @ -no Drug Therapy requiring intensive monitoring for toxicity (Heparin, Nitro, Insulin, Cardizem)? @ -no Were any procedures done? @ -no Diagnosis/symptom? @ - Acute, or Chronic, or Acute on Chronic? @ -Acute Uncomplicated (without systemic symptoms) or Complicated (systemic symptoms)? @ -Complicated Side effects of treatment? @ -no Exacerbation, Progression, or Severe Exacerbation? @ -exacerbation Poses a threat to life or bodily function? How? (Chest pain, [place], [place], pneumonia, PE, COPD, DKA, ARF, appy, cholecystitis, CVA, Diverticulitis, Homicidal, Suicidal, threat to staff... and all critical care pts) @ -yes Reevaluation #5: Differential Dyspnea: Coronary syndrome, arrhythmia, tamponade, asthma, COPD, pulmonary embolism, pneumonia, pneumothorax, pulmonary effusion, anaphylaxis, diabetic ketoacidosis, flailed chest, pulmonary contusion, diaphragmatic rupture, anemia, neuromuscular, this is not meant to be an all-inclusive list. - Consultations Consultation #1: Spoke with [facility] who agrees to admit this patient Chest Pain MDM - MDM 78 male will be admitted for severe shortness of breath with cough congestion and chest pain, hypoxia and hypotension Critical Care Time Critical Care Time: Yes Total Critical Care Time: 31 Disposition Clinical Impression: Lung cancer, Chest pain, Hypoxia, Hypotension, Weakness Disposition: ADMITTED IP TO THIS HOSP Condition: Serious Is patient prescribed a controlled substance at d/c from ED?: No Referrals: Nalini Palmer MD [Primary Care Provider] - 1-2 days Time of Disposition: 22:30
[2023-09-07] MEDS: SODIUM CHLORIDE 0.9% 1,000 ML IV STA ×3 (20:10→23:44)
[2023-09-07 20:44] LABS: Anisocytosis Slight; HCT 31.2 % (39.0-53.0); HGB 9.8 gm/dL (13.0-17.5); Hypochromasia Moderate; MCH 30.2 pg (25.0-35.0); MCHC 31.3 g/dL (31.0-37.0); MCV 96.7 fL (80.0-100.0); Macrocytosis Slight; Mean Platelet Volume 9.9; Platelet Count 157 k/uL (150-450); RBC 3.22 m/uL (4.30-5.90); RDW 18.3 % (11.5-15.5)
[2023-09-07 20:54] LABS: INR 1.2 (<1.2); Partial Thromboplastin Time 29.1 sec (22.0-30.0); Prothrombin Time 12.4 sec (10.0-12.5)
[2023-09-07] MEDS: IPRATROPIUM-ALBUTEROL 3 ML NEB INHALATION STA ×2 (21:01→22:53)
[2023-09-07 21:19] LABS: ALT 24 U/L (4-49); AST 38 U/L (17-59); African American GFR (CKD) 39 (>60 ml/min/1.73 sqM); Albumin 2.7 g/dL (3.5-5.0); Alkaline Phosphatase 95 U/L (38-126); Anion Gap 4 mmol/L; Blood Urea Nitrogen 36 mg/dL (9-20); Calcium 8.1 mg/dL (8.4-10.2); Carbon Dioxide 26 mmol/L (22-30); Chloride 106 mmol/L (98-107); Glucose 97 mg/dL (74-99); Lymphocytes # (M) 0.64 k/uL (1.0-4.8); Magnesium 1.9 mg/dL (1.6-2.3); Non-African American GFR(CKD) 33 (>60 ml/min/1.73 sqM); Nucleated Red Blood Cells 0 /100 WBC (0-0); Phosphorus 2.6 mg/dL (2.5-4.5); Potassium 4.1 mmol/L (3.5-5.1); Sodium 136 mmol/L (137-145); Total Bilirubin 0.6 mg/dL (0.2-1.3)
[2023-09-07 21:23] LABS: Eosinophils # (M) 0.32 k/uL (0-0.7); Neutrophils # (M) 2.68 k/uL (1.3-7.7); Neutrophils % (M) 67 %; Total Cells Counted 200
[2023-09-07 21:24] LABS: NT-Pro-B-Type Natriuretic Pept 5480 pg/mL
[2023-09-07] MEDS ORDERED: PNEUMONIA PROTOCOL UTILIZED 1 EACH MISC PO PRN (22:27)
[2023-09-07] MEDS ORDERED: HEPARIN SODIUM 1,000 UN/ML (10ML VL) IV PRN (22:52)
--- NOTE | 2023-09-07 23:13 | XR ---
EXAM: XR chest 1V portable CLINICAL INDICATION:Male, 78 years old with history of sob; [facility] COMPARISON: 09/06/2023 TECHNIQUE: Chest single view. FINDINGS: Lines/tubes/devices: Monitor leads overlie the chest. No indwelling lines are seen. Cardiomediastinum: Cardiac silhouette appears stable. Heart size upper normal. Partially calcified aorta. Unremarkable mediastinal silhouette. Vasculature: Mildly increased vascular congestion. Lungs/pleura: Slightly greater mid to lower lung infiltrates suggested. Similar left basilar pleural/parenchymal op acity with blunting of the costophrenic angle suggesting small to moderate pleural effusion. Calcifie d granuloma suggested in the mid right lung zone. No evidence of pneumothorax. No significant right p leural effusion is suggested. Bones/soft tissues: Bony thorax appears grossly intact as seen, with degenerative changes of the shoulders and probably s pine. Regional soft tissues appear unremarkable. IMPRESSION: 1. Small to moderate left pleural effusion, similar to previous. 2. Slight increased congestion and mid to lower lung infiltrates, most suggestive of edema and atele ctasis. Superimposed infection should be clinically excluded.
[2023-09-07] MEDS ORDERED: NALOXONE 0.4 MG/ML 1 ML VIAL IV PRN (23:21)
[2023-09-07] MEDS: LEVOFLOXACIN 750MG-D5W PMX 750 MG in DEXTROSE/WATER 1 150ML.BAG IVPB STA (23:44)
[2023-09-07] MEDS: SODIUM CHLORIDE 0.9% 1,000 ML IV SCH (23:45)
--- NOTE | 2023-09-08 01:41 | CT ---
EXAM: CT Head Without and With Intravenous Contrast CLINICAL HISTORY: ITS.REASON CT Reason: WEAKNESS TECHNIQUE: Axial computed tomography images of the head/brain without and with intravenous contrast. CTDI is 48.8 mGy and DLP is 1394.4 mGy-cm. This CT exam was performed using one or more of the following dose reduction techniques: automated exposure control, adjustment of the mA and/or kV according to patient size, and/or use of iterative reconstruction technique. COMPARISON: No relevant prior studies available. FINDINGS: Brain: Unremarkable. No hemorrhage. No significant white matter disease. No edema. Normal enhancement. Ventricles: Unremarkable. No ventriculomegaly. Bones/joints: Unremarkable. No acute fracture. Soft tissues: Unremarkable. Sinuses: Unremarkable as visualized. No acute sinusitis. Mastoid air cells: Unremarkable as visualized. No mastoid effusion. IMPRESSION: Normal head/brain CT.
[2023-09-08] MEDS: PANTOPRAZOLE 40 MG/10 ML VIAL IV SCH (01:45)
--- NOTE | 2023-09-08 01:55 | US ---
EXAM: US Duplex Bilateral Lower Extremities Veins CLINICAL HISTORY: ITS.REASON US Reason: dvt TECHNIQUE: Real-time duplex ultrasound scan of the bilateral lower extremity veins integrating B-mode two-dimensional vascular structure, Doppler spectral analysis, color flow Doppler imaging and compression. COMPARISON: No relevant prior studies available. FINDINGS: Right deep veins: Unremarkable. No DVT in the right common femoral, femoral, proximal deep femoral or popliteal veins. The veins demonstrate normal color flow, are normally compressible, with normal phasic flow and/or augmentation response. Right superficial veins: Unremarkable. No thrombus in the visualized right great saphenous vein. Left deep veins: Unremarkable. No DVT in the left common femoral, femoral, proximal deep femoral or popliteal veins. The veins demonstrate normal color flow, are normally compressible, with normal phasic flow and/or augmentation response. Left superficial veins: Unremarkable. No thrombus in the visualized left great saphenous vein. IMPRESSION: No DVT
--- NOTE | 2023-09-08 02:39 | CT ---
EXAM: CT Angiography Chest With Intravenous Contrast CLINICAL HISTORY: ITS.REASON CT Reason: pe TECHNIQUE: Axial computed tomographic angiography images of the chest with intravenous contrast. CTDI is 40 mGy and DLP is 1394.4 mGy-cm. This CT exam was performed using one or more of the following dose reduction techniques: automated exposure control, adjustment of the mA and/or kV according to patient size, and/or use of iterative reconstruction technique. MIP reconstructed images were created and reviewed. COMPARISON: No relevant prior studies available. FINDINGS: Pulmonary arteries: Exam limited secondary to the phase of contrast administration.. No large central pulmonary embolism. Aorta: No acute findings. No thoracic aortic aneurysm. Lungs: See below. Pleural space: Bilateral pleural effusions with compressive atelectasis of both lower lobes. No pneumothorax. Heart: Small pericardial effusion. Coronary artery calcifications. No cardiomegaly. No evidence of RV dysfunction. Bones/joints: No acute fracture. No dislocation. Soft tissues: Unremarkable. Lymph nodes: Unremarkable. No enlarged lymph nodes. IMPRESSION: Small pericardial effusion. Bilateral pleural effusions No large central pulmonary embolus
[2023-09-08] MEDS: HEPARIN SOD,PORK IN 0.45% NACL 25,000 UNIT in 0.45% NACL 1 250ML.BAG IV SCH (03:14)
[2023-09-08] MEDS: HEPARIN SODIUM 1,000 UN/ML (10ML VL) IV ONE (03:14)
[2023-09-08 06:53] LABS: Anisocytosis Slight; Basophils % (A) 1 %; Eosinophils # (A) 0.2 k/uL (0-0.7); Eosinophils % (A) 7 %; HCT 27.4 % (39.0-53.0); Hypochromasia Marked; Lymphocytes # (A) 0.7 k/uL (1.0-4.8); Lymphocytes % (A) 23 %; MCH 29.6 pg (25.0-35.0); MCV 98.7 fL (80.0-100.0); Macrocytosis Slight; Monocytes # (A) 0.2 k/uL (0-1.0); Monocytes % (A) 8 %; Neutrophils # (A) 1.7 k/uL (1.3-7.7); Neutrophils % (A) 58 %; Platelet Count 137 k/uL (150-450); RBC 2.77 m/uL (4.30-5.90); RDW 18.4 % (11.5-15.5); WBC 2.9 k/uL (3.8-10.6)
[2023-09-08 07:06] LABS: ALT 20 U/L (4-49); AST 32 U/L (17-59); African American GFR (CKD) 49 (>60 ml/min/1.73 sqM); Albumin 2.2 g/dL (3.5-5.0); Alkaline Phosphatase 73 U/L (38-126); Anion Gap 2 mmol/L; Blood Urea Nitrogen 31 mg/dL (9-20); Calcium 7.2 mg/dL (8.4-10.2); Carbon Dioxide 25 mmol/L (22-30); Chloride 111 mmol/L (98-107); Glucose 85 mg/dL (74-99); Magnesium 1.8 mg/dL (1.6-2.3); Non-African American GFR(CKD) 42 (>60 ml/min/1.73 sqM); Phosphorus 3.3 mg/dL (2.5-4.5); Sodium 138 mmol/L (137-145); Total Bilirubin 0.5 mg/dL (0.2-1.3)
[2023-09-08 07:31] LABS: HGB 8.2 gm/dL (13.0-17.5)
[2023-09-08] MEDS: ALBUTEROL NEBULIZED 2.5 MG/3 ML INHALATION SCH (07:49)
[2023-09-08] MEDS: FUROSEMIDE 10 MG/ML 4 ML VIAL IV STA (08:17)
[2023-09-08] MEDS: methylPREDNISolone SOD SUCCI 125 MG/2 ML VIAL IV SCH ×2 (09:29→16:13)
--- NOTE | 2023-09-08 12:43 | P.CRDCN ---
History of Present Illness History of present illness: HISTORY OF PRESENT ILLNESS: This is a 78-year-old male with a past medical history significant for lung cancer with metastasis, CHF, hypertension, hyperlipidemia and idiopathic cardiomyopathy with an ejection fraction of 40% in 1999 and with recovered EF. Patient follows in the office with Dr. Rivera. We have been asked to see the patient in consultation for CHF. Patient examined at the bedside in the emergency room. Patient states he was sent in by his oncologist to the emergency room as he has not been feeling well. He reports having shortness of breath for the past few days. He currently denies any chest pain or pressure. Vital signs are stable. DIAGNOSTICS: - EKG reveals sinus mechanism with no signs of acute ischemia - Chest xray small to moderate left pleural effusion. Slight increase congestion and mid to lower lung infiltrates, most suggestive of edema and ate lectasis. Superimposed infection should be clinically excluded. - CT of the brain: Negative for acute process - Venous Doppler: Negative for DVT bilaterally - Chest CTA: Small pericardial effusion, bilateral pleural effusions no large central pulmonary embolism - Laboratory data: WBC 2.9. Hemoglobin 8.2. Platelet count 137. D-dimer 0.44. Sodium 138. Potassium 4.0. BUN 31. Creatinine 1.55. Magnesium 1.8. Troponin negative x 1. proBNP 5480. - Current home cardiac medications include Lasix 40 mg daily, Zetia 10 mg daily, carvedilol 3.125 mg twice a day. - Most recent echocardiogram obtained in May 2023 revealed ejection fraction 55 to 60%, mild to moderate aortic stenosis, mild aortic regurgitation, moderate MR, mild TR - Cardiac catheterization history: September 1999 revealing normal coronary arteries - Patient underwent Lexiscan stress test in December 2022 which was abnormal w ith reversible anterior apical defect-on medical management REVIEW OF SYSTEMS: At the time of my exam: CONSTITUTIONAL: Denies fever or chills. HEENT: Denies blurred vision, vision changes, or eye pain. Denies hemoptysis CARDIOVASCULAR: Denies chest pain. Denies orthopnea. Denies PND. Denies palpi tations RESPIRATORY: Denies shortness of breath. GASTROINTESTINAL: Denies abdominal pain. Denies nausea or vomiting. HEMATOLOGIC: Denies bleeding disorders. GENITOURINARY: Denies any blood in urine. SKIN: Denies pruitis. Denies rash. PHYSICAL EXAM: VITAL SIGNS: Reviewed. GENERAL: Well-developed in no acute distress. HEENT: Head is normocephalic. Pupils are equal, round. Sclerae anicteric. Mucous membranes of the mouth are moist. Neck supple. No JVD or thyromegaly LUNGS: Respirations even and unlabored. Lungs with crackles at the bases HEART: Regular rate and rhythm. S1 and S2 heard. Systolic murmur noted. ABDOMEN: Soft. Nondistended. Nontender. EXTREMITIES: Normal range of motion. No clubbing or cyanosis. Peripheral pulses intact. 2+ bilateral lower extremity edema NEUROLOGIC: Awake and alert. Oriented x 3. ASSESSMENT: Shortness of breath Acute on chronic heart failure with preserved EF Small pericardial effusion, per CTA Bilateral pleural effusions History of metastatic lung CA Abnormal Lexiscan stress test, December 2022, managed medically History of idiopathic cardiomyopathy with a EF of 40% in 1999 with recovered EF Hypertension Hyperlipidemia PLAN: Obtain 2D echo to assess cardiac structure and function. Assess pericardial effusion. Resume home cardiac medications Begin IV Lasix 40 mg every 12 hours Daily weights, accurate intake and output, and monitoring of kidney function Further recommendations pending patient course Nurse practitioner note has been reviewed by physician. Signing provider agrees with the documented findings, assessment, and plan of care documented by HOTEL SUPERINTENDENT as a scribe. Past Medical History Past Medical History: Asthma, Cancer, GERD/Reflux, Hyperlipidemia, Hypertension, Pneumonia, Prostate Disorder, Sleep Apnea/CPAP/BIPAP Additional Past Medical History / Comment(s): cardiomyopathy, hiatal hernia, anemia, lung cancer diagnosed 12/29/2022 (last chemo finished 04/07/2023) History of Any Multi-Drug Resistant Organisms: None Reported Past Surgical History: Hernia Repair, Joint Replacement, Orthopedic Surgery Additional Past Surgical History / Comment(s): colonoscopy,EGD, Scotty hip replacments, scotty fx ankles, screws removed from rt ankle Past Anesthesia/Blood Transfusion Reactions: No Reported Reaction Past Psychological History: Depression Smoking Status: Former smoker Past Alcohol Use History: Occasional Past Drug Use History: None Reported Medications and Allergies Home Medications Medication Instructions Recorded Confirmed Type Furosemide [Lasix] 40 mg PO DAILY 01/03/14 09/08/23 History Pramipexole Di-HCl [Mirapex] 1.5 mg PO BID 01/03/14 09/08/23 History allopurinoL [Zyloprim] 100 mg PO HS 01/03/14 09/08/23 History Albuterol Sulfate [Albuterol 1 - 2 puff PO RT-Q4H PRN 04/15/23 09/08/23 History Sulfate Hfa] Ergocalciferol (Vitamin D2) 1,250 mcg PO Q14D 04/15/23 09/08/23 History [Drisdol (50,000 Iu)] Ferrous Sulfate [Iron (65 MG 975 mg PO PC-LUNCH 04/15/23 09/08/23 History Elemental)] Fluticasone Propion/Salmeterol 1 puff INHALATION RT-BID 04/15/23 09/08/23 History [Advair 250-50 Diskus] Montelukast [Singulair] 10 mg PO HS 04/15/23 09/08/23 History Ondansetron Odt [Zofran ODT] 8 mg PO DAILY PRN 04/15/23 09/08/23 History Tamsulosin [Flomax] 0.4 mg PO DAILY 04/15/23 09/08/23 History carvediloL [Coreg] 3.125 mg PO BID 04/15/23 09/08/23 History Binimetinib [Mektovi] 30 mg PO BID 06/08/23 09/08/23 History Encorafenib [Braftovi] 300 mg PO DAILY 06/08/23 09/08/23 History Albuterol Nebulized [Ventolin 2.5 mg INHALATION RT-BID 09/08/23 09/08/23 History Nebulized] Benralizumab [Fasenra] 30 mg SQ Q42D 09/08/23 09/08/23 History Calcium Carbonate [Calcium] 600 mg PO BID@1200,2100 09/08/23 09/08/23 History Cholecalciferol [Vitamin D3 (10 10 mcg PO BID@1200,2100 09/08/23 09/08/23 History Mcg = 400 Iu)] Docusate Sodium 250 mg PO DAILY 09/08/23 09/08/23 History Ezetimibe [Zetia] 10 mg PO DAILY 09/08/23 09/08/23 History Levofloxacin [Levaquin] 750 mg PO DAILY 09/08/23 09/08/23 History Omeprazole [PriLOSEC] 40 mg PO DAILY 09/08/23 09/08/23 History Zoledronic Acid [Zometa] 4 mg IV Q90D 09/08/23 09/08/23 History Allergies Allergy/AdvReac Type Severity Reaction Status Date / Time No Known Allergies Allergy Verified 09/08/23 09:55 Physical Exam Vitals: Vital Signs Temp Pulse Resp BP Pulse Ox 09/08/23 12:06 91 96 09/08/23 11:55 84 09/08/23 10:00 82 19 98/60 95 09/08/23 09:00 92 19 97/60 94 L 09/08/23 08:02 89 09/08/23 08:00 86 18 94/53 95 09/08/23 07:53 96 09/08/23 07:50 84 09/08/23 06:00 80 20 102/56 95 09/08/23 05:00 82 16 95/72 93 L 09/08/23 04:03 20 09/08/23 04:00 76 13 100/59 91 L 09/08/23 03:30 84 20 94/62 94 L 09/08/23 03:00 86 20 90/56 94 L 09/08/23 02:38 80 18 95/57 91 L 09/08/23 02:22 82 19 86/47 88 L 09/08/23 01:46 85 19 97/54 90 L 09/07/23 23:59 97.7 F 76 19 91/64 93 L 09/07/23 22:58 93 09/07/23 22:53 87 09/07/23 22:15 90 18 89/57 92 L 09/07/23 21:07 90 09/07/23 21:03 88 09/07/23 20:51 87 20 84/47 94 L 09/07/23 20:41 86 20 77/43 93 L 09/07/23 19:48 97.8 F 101 H 22 89/50 85 L Intake and Output 09/07/23 09/08/23 09/08/23 22:59 06:59 14:59 Intake Total 260 500 Output Total 610 780 Balance -350 -280 Intake: Intake, IV Titration 260 440 Amount Sodium Chloride 0.9% 1, 260 000 ml @ 50 mls/hr IV . Q20H [facility] Rx#:[id number] Sodium Chloride 0.9% 1, 440 000 ml @ 999 mls/hr IV . Q1H1M [facility] Rx#:[id number] Oral 60 Output: Urine 610 780 Uretheral (Miner) 250 Other: Weight 93.44 kg Results 09/08/23 06:35 09/08/23 06:35 Cardiac Enzymes 09/07/23 09/07/23 09/08/23 Range/Units 20:15 20:15 06:35 AST 38 32 (17-59) U/L Troponin I <0.012 (0.000-0.034) ng/mL Coagulation 09/07/23 Range/Units 20:15 PT 12.4 (10.0-12.5) sec APTT 29.1 (22.0-30.0) sec CBC 09/07/23 09/08/23 Range/Units 20:15 06:35 WBC 4.0 2.9 L (3.8-10.6) k/uL RBC 3.22 L 2.77 L (4.30-5.90) m/uL Hgb 9.8 L 8.2 L D (13.0-17.5) gm/dL Hct 31.2 L 27.4 L (39.0-53.0) % Plt Count 157 137 L (150-450) k/uL Comprehensive Metabolic Panel 09/07/23 09/08/23 Range/Units 20:15 06:35 Sodium 136 L 138 (137-145) mmol/L Potassium 4.1 4.0 (3.5-5.1) mmol/L Chloride 106 111 H (98-107) mmol/L Carbon Dioxide 26 25 (22-30) mmol/L BUN 36 H 31 H (9-20) mg/dL Creatinine 1.88 H 1.55 H (0.66-1.25) mg/dL Glucose 97 85 (74-99) mg/dL Calcium 8.1 L 7.2 L (8.4-10.2) mg/dL AST 38 32 (17-59) U/L ALT 24 20 (4-49) U/L Alkaline Phosphatase 95 73 (38-126) U/L Total Protein 6.0 L 5.0 L (6.3-8.2) g/dL Albumin 2.7 L 2.2 L (3.5-5.0) g/dL Current Medications Generic Name Dose Route Start Last Admin Trade Name Freq PRN Reason Stop Dose Admin Albuterol Sulfate 2.5 mg 09/08/23 08:00 09/08/23 11:54 Albuterol Nebulized 2.5 Mg/3 Ml INHALATION 2.5 mg RT-QID [facility] Administration Furosemide 40 mg 09/08/23 10:45 Furosemide 10 Mg/Ml 4 Ml Vial IV Q12HR [facility] Sodium Chloride 1,000 mls @ 50 mls/hr 09/07/23 22:30 09/08/23 06:01 Saline 0.9% IV Not Given .Q20H [facility] Levofloxacin 750 mg/ IV 150 mls @ 100 mls/hr 09/08/23 21:00 Solution IVPB Q48H [facility] Protocol Methylprednisolone Sodium Succinate 60 mg 09/08/23 15:00 Methylprednisolone Sod Succi 125 Mg/2 Ml Vial IV Q6H [facility] Miscellaneous Information 1 each 09/07/23 22:27 Pneumonia Protocol Utilized 1 Each Misc PO ONCE PRN Per Protocol Naloxone HCl 0.2 mg 09/07/23 23:21 Naloxone 0.4 Mg/Ml 1 Ml Vial IV Q2M PRN Opioid Reversal Pantoprazole Sodium 40 mg 09/07/23 23:45 09/08/23 08:18 Pantoprazole 40 Mg/10 Ml Vial IV 40 mg DAILY [facility]YDE Administration Intake and Output 09/07/23 09/08/23 09/08/23 22:59 06:59 14:59 Intake Total 260 500 Output Total 610 780 Balance -350 -280 Intake: Intake, IV Titration 260 440 Amount Sodium Chloride 0.9% 1, 260 000 ml @ 50 mls/hr IV . Q20H [facility] Rx#:[id number] Sodium Chloride 0.9% 1, 440 000 ml @ 999 mls/hr IV . Q1H1M [facility] Rx#:[id number] Oral 60 Output: Urine 610 780 Uretheral (Miner) 250 Other: Weight 93.44 kg 09/08/23 06:35 09/08/23 06:35
[2023-09-08] MEDS: FUROSEMIDE 10 MG/ML 4 ML VIAL IV SCH (12:51)
--- NOTE | 2023-09-08 13:29 | P.GSCN ---
History of Present Illness Consult date: 09/08/23 Reason for Consult: Questionable pulmonary embolism Requesting physician: Kj Lamb History of present illness: Is a pleasant 78-year-old male who presented to the emergency department with complaints of severe shortness of breath. He has a past medical history of lung cancer with metastasis to the bone, COPD shortness of breath, hyperlipidemia, hypertension, prostate disorder, sleep apnea, anemia and cardiomyopathy. States that he was becoming increasingly short of breath and having increased weakness and not feeling well over the last 1 week duration. Patient has completed his chemotherapy and now on immunotherapy and follows with Dr. Leigh. He was admitted for acute hypoxia. He had a CT angiogram of the chest reporting no large central pulmonary embolus by that exam was limited secondary to phase of contrast administration. Vascular surgery was consulted to evaluate for possible PE. Patient also had lower extremity venous duplex negative for DVT bilaterally. Patient states breathing is improved. He is on 9 L of high flow nasal cannula, saturation 9495%. States no chest pain, no abdominal pain, no nausea or vomiting. No pain in the lower extremities. No history of DVT or pulmonary embolism. Review of Systems A 14 point review systems was completed all pertinent positives and negatives as stated in the HPI. Past Medical History Past Medical History: Asthma, Cancer, GERD/Reflux, Hyperlipidemia, Hypertension, Pneumonia, Prostate Disorder, Sleep Apnea/CPAP/BIPAP Additional Past Medical History / Comment(s): cardiomyopathy, hiatal hernia, anemia, lung cancer diagnosed 12/29/2022 (last chemo finished 04/07/2023) History of Any Multi-Drug Resistant Organisms: None Reported Past Surgical History: Hernia Repair, Joint Replacement, Orthopedic Surgery Additional Past Surgical History / Comment(s): colonoscopy,EGD, Scotty hip replacments, scotty fx ankles, screws removed from rt ankle Past Anesthesia/Blood Transfusion Reactions: No Reported Reaction Past Psychological History: Depression Smoking Status: Former smoker Past Alcohol Use History: Occasional Past Drug Use History: None Reported Medications and Allergies Home Medications Medication Instructions Recorded Confirmed Type Furosemide [Lasix] 40 mg PO DAILY 01/03/14 09/08/23 History Pramipexole Di-HCl [Mirapex] 1.5 mg PO BID 01/03/14 09/08/23 History allopurinoL [Zyloprim] 100 mg PO HS 01/03/14 09/08/23 History Albuterol Sulfate [Albuterol 1 - 2 puff PO RT-Q4H PRN 04/15/23 09/08/23 History Sulfate Hfa] Ergocalciferol (Vitamin D2) 1,250 mcg PO Q14D 04/15/23 09/08/23 History [Drisdol (50,000 Iu)] Ferrous Sulfate [Iron (65 MG 975 mg PO PC-LUNCH 04/15/23 09/08/23 History Elemental)] Fluticasone Propion/Salmeterol 1 puff INHALATION RT-BID 04/15/23 09/08/23 History [Advair 250-50 Diskus] Montelukast [Singulair] 10 mg PO HS 04/15/23 09/08/23 History Ondansetron Odt [Zofran ODT] 8 mg PO DAILY PRN 04/15/23 09/08/23 History Tamsulosin [Flomax] 0.4 mg PO DAILY 04/15/23 09/08/23 History carvediloL [Coreg] 3.125 mg PO BID 04/15/23 09/08/23 History Binimetinib [Mektovi] 30 mg PO BID 06/08/23 09/08/23 History Encorafenib [Braftovi] 300 mg PO DAILY 06/08/23 09/08/23 History Albuterol Nebulized [Ventolin 2.5 mg INHALATION RT-BID 09/08/23 09/08/23 History Nebulized] Benralizumab [Fasenra] 30 mg SQ Q42D 09/08/23 09/08/23 History Calcium Carbonate [Calcium] 600 mg PO BID@1200,209909/08/23 09/08/23 History Cholecalciferol [Vitamin D3 (10 10 mcg PO BID@1200,2100 09/08/23 09/08/23 History Mcg = 400 Iu)] Docusate Sodium 250 mg PO DAILY 09/08/23 09/08/23 History Ezetimibe [Zetia] 10 mg PO DAILY 09/08/23 09/08/23 History Levofloxacin [Levaquin] 750 mg PO DAILY 09/08/23 09/08/23 History Omeprazole [PriLOSEC] 40 mg PO DAILY 09/08/23 09/08/23 History Zoledronic Acid [Zometa] 4 mg IV Q90D 09/08/23 09/08/23 History Allergies Allergy/AdvReac Type Severity Reaction Status Date / Time No Known Allergies Allergy Verified 09/08/23 09:55 Surgical - Exam Vital Signs Temp Pulse Resp BP Pulse Ox 97.8 F 101 H 22 89/50 85 L 09/07/23 19:48 09/07/23 19:48 09/07/23 19:48 09/07/23 19:48 09/07/23 19:48 General appearance: The patient is alert, oriented, appears in no acute distress. HET: Head is normocephalic and atraumatic. Pupils are equal and reactive. Neck: Supple. Heart: Regular. Lungs: Equal expansion, normal respiratory effort. Abdomen: Soft, nontender, nondistended. Extremities: Normal skin color and turgor. Neurological: No focal deficits. Strength and sensation are grossly intact. Results - Labs 09/08/23 06:35 09/08/23 06:35 Abnormal Lab Results - Last 24 Hours (Table) 09/07/23 09/07/23 09/07/23 Range/Units 20:15 20:15 20:15 WBC (3.8-10.6) k/uL RBC 3.22 L (4.30-5.90) m/uL Hgb 9.8 L (13.0-17.5) gm/dL Hct 31.2 L (39.0-53.0) % MCHC (31.0-37.0) g/dL RDW 18.3 H (11.5-15.5) % Plt Count (150-450) k/uL Lymphocytes # (1.0-4.8) k/uL Lymphocytes # (Manual) 0.64 L (1.0-4.8) k/uL INR 1.2 H (<1.2) Sodium 136 L (137-145) mmol/L Chloride (98-107) mmol/L BUN 36 H (9-20) mg/dL Creatinine 1.88 H (0.66-1.25) mg/dL Calcium 8.1 L (8.4-10.2) mg/dL Total Protein 6.0 L (6.3-8.2) g/dL Albumin 2.7 L (3.5-5.0) g/dL 09/08/23 09/08/23 Range/Units 06:35 06:35 WBC 2.9 L (3.8-10.6) k/uL RBC 2.77 L (4.30-5.90) m/uL Hgb 8.2 L D (13.0-17.5) gm/dL Hct 27.4 L (39.0-53.0) % MCHC 30.0 L (31.0-37.0) g/dL RDW 18.4 H (11.5-15.5) % Plt Count 137 L (150-450) k/uL Lymphocytes # 0.7 L (1.0-4.8) k/uL Lymphocytes # (Manual) (1.0-4.8) k/uL INR (<1.2) Sodium (137-145) mmol/L Chloride 111 H (98-107) mmol/L BUN 31 H (9-20) mg/dL Creatinine 1.55 H (0.66-1.25) mg/dL Calcium 7.2 L (8.4-10.2) mg/dL Total Protein 5.0 L (6.3-8.2) g/dL Albumin 2.2 L (3.5-5.0) g/dL Diabetes panel 09/07/23 09/08/23 Range/Units 20:15 06:35 Sodium 136 L 138 (137-145) mmol/L Potassium 4.1 4.0 (3.5-5.1) mmol/L Chloride 106 111 H (98-107) mmol/L Carbon Dioxide 26 25 (22-30) mmol/L BUN 36 H 31 H (9-20) mg/dL Creatinine 1.88 H 1.55 H (0.66-1.25) mg/dL Glucose 97 85 (74-99) mg/dL Calcium 8.1 L 7.2 L (8.4-10.2) mg/dL AST 38 32 (17-59) U/L ALT 24 20 (4-49) U/L Alkaline Phosphatase 95 73 (38-126) U/L Total Protein 6.0 L 5.0 L (6.3-8.2) g/dL Albumin 2.7 L 2.2 L (3.5-5.0) g/dL Calcium panel 09/07/23 09/08/23 Range/Units 20:15 06:35 Calcium 8.1 L 7.2 L (8.4-10.2) mg/dL Phosphorus 2.6 3.3 (2.5-4.5) mg/dL Albumin 2.7 L 2.2 L (3.5-5.0) g/dL Pituitary panel 09/07/23 09/08/23 Range/Units 20:15 06:35 Sodium 136 L 138 (137-145) mmol/L Potassium 4.1 4.0 (3.5-5.1) mmol/L Chloride 106 111 H (98-107) mmol/L Carbon Dioxide 26 25 (22-30) mmol/L BUN 36 H 31 H (9-20) mg/dL Creatinine 1.88 H 1.55 H (0.66-1.25) mg/dL Glucose 97 85 (74-99) mg/dL Calcium 8.1 L 7.2 L (8.4-10.2) mg/dL Adrenal panel 09/07/23 09/08/23 Range/Units 20:15 06:35 Sodium 136 L 138 (137-145) mmol/L Potassium 4.1 4.0 (3.5-5.1) mmol/L Chloride 106 111 H (98-107) mmol/L Carbon Dioxide 26 25 (22-30) mmol/L BUN 36 H 31 H (9-20) mg/dL Creatinine 1.88 H 1.55 H (0.66-1.25) mg/dL Glucose 97 85 (74-99) mg/dL Calcium 8.1 L 7.2 L (8.4-10.2) mg/dL Total Bilirubin 0.6 0.5 (0.2-1.3) mg/dL AST 38 32 (17-59) U/L ALT 24 20 (4-49) U/L Alkaline Phosphatase 95 73 (38-126) U/L Total Protein 6.0 L 5.0 L (6.3-8.2) g/dL Albumin 2.7 L 2.2 L (3.5-5.0) g/dL - Imaging Comments: CT angiogram chest reports small pericardial effusion with no large central pul monary embolus. CT angiogram independently reviewed with no evidence of saddle pulmonary embolism or main pulmonary artery embolism. Venous duplex negative for lower extremity DVT bilaterally Assessment and Plan Assessment: 1. Shortness of breath 2. No evidence of saddle pulmonary embolism or main pulmonary artery embolism and not likely source of shortness of breath 3. Small pericardial effusion per CTA 4. Bilateral pleural effusions 5. History of metastatic lung cancer Plan: CT angiogram chest independently reviewed there is no evidence for saddle pulmonary embolism or main artery patent, John embolism therefore not likely cause of shortness of breath. There is no indication for any vascular surgical intervention. Continue medical management per primary medical team. Thank you for this consultation, we will sign off at this time. The impression and plan of care has been dictated as directed. Dr. Miner I performed a history and examination of this patient, discussed the same with the dictator. I agree with the dictator's note ,documented as a scribe. Any additional findings or plans will be noted.
--- NOTE | 2023-09-08 15:10 | P.CNPUL ---
History of Present Illness Consult date: 09/08/23 Requesting physician: Dakn Mantilla Reason for consult: dyspnea Chief complaint: Shortness of breath, lower extremity edema History of present illness: This is a pleasant 78-year-old male patient with a history of hypertension, hyperlipidemia, mild intermittent chronic bronchial asthma, former smoker. 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. There was also some concern regarding small cell lung cancer based on tumor markers and gene mutations. MRI of the brain was negative for metastasis. He had completed radiation treatments to the sternum and left scapula. He had undergone chemotherapy with carboplatin/etoposide/Tecentriq. He is currently on Braftovi and Mektovi. Earlier this week he had developed low oxygen and low blood pressure, weakness, lower extremity edema, cough and congestion. He was seen by oncology who stopped the Braftovi and Mektovi and initiated him on Levaquin and the patient presented here yesterday for further evaluation. CT s can of the brain revealed no acute abnormalities. Doppler of the lower extremities revealed no evidence of DVT. CT angiogram ruled out central pulmonary embolism. There is small pericardial effusion. Bilateral pleural effusions. Air bronchograms with opacities in the bases. White count 2.9. H emoglobin 8.2. Platelets 137. Sodium 138. Potassium 4.0. Bicarb 25. BUN 31. Creatinine 1.55. Legionella screen negative. proBNP 5480. Troponin negative. He is seen today in consultation in the emergency department. He is currently on 8 L high flow nasal cannula with O2 saturations in the mid 90s. He has been afebrile. Hemodynamically stable. He has been initiated on Levaquin, Solu-Me drol and albuterol. Echocardiogram pending. Review of Systems REVIEW OF SYSTEMS: CONSTITUTIONAL: Generalized weakness. Denies any recent significant weight loss or weight gain. EYES: Denies change in vision. EARS, NOSE, MOUTH, THROAT: Denies headaches, denies sore throat. CARDIOVASCULAR: Denies chest pain, palpitations or syncopal episodes. RESPIRATORY: Positive for shortness of breath, cough, congestion no hemoptysis. GASTROINTESTINAL: Denies change in appetite, denies abdominal pain GENITOURINARY: Denies hematuria, denies infections. MUSKULOSKELETAL: Positive for lower extremity swelling. INTEGUMENTARY: Denies rash, denies eczema. NEUROLOGICAL: Denies recent memory loss, no recent seizure activity. PSYCHIATRIC: Denies anxiety, denies depression. HEMATOLOGIC/LYMPHATIC: Denies anemia, denies enlarged lymph nodes. Past Medical History Past Medical History: Asthma, Cancer, GERD/Reflux, Hyperlipidemia, Hypertension, Pneumonia, Prostate Disorder, Sleep Apnea/CPAP/BIPAP Additional Past Medical History / Comment(s): cardiomyopathy, hiatal hernia, anemia, lung cancer diagnosed 12/29/2022 (last chemo finished 04/07/2023) History of Any Multi-Drug Resistant Organisms: None Reported Past Surgical History: Hernia Repair, Joint Replacement, Orthopedic Surgery Additional Past Surgical History / Comment(s): colonoscopy,EGD, Scotty hip replacments, scotty fx ankles, screws removed from rt ankle Past Anesthesia/Blood Transfusion Reactions: No Reported Reaction Past Psychological History: Depression Smoking Status: Former smoker Past Alcohol Use History: Occasional Past Drug Use History: None Reported Medications and Allergies Home Medications Medication Instructions Recorded Confirmed Type Furosemide [Lasix] 40 mg PO DAILY 01/03/14 09/08/23 History Pramipexole Di-HCl [Mirapex] 1.5 mg PO BID 01/03/14 09/08/23 History allopurinoL [Zyloprim] 100 mg PO HS 01/03/14 09/08/23 History Albuterol Sulfate [Albuterol 1 - 2 puff PO RT-Q4H PRN 04/15/23 09/08/23 History Sulfate Hfa] Ergocalciferol (Vitamin D2) 1,250 mcg PO Q14D 04/15/23 09/08/23 History [Drisdol (50,000 Iu)] Ferrous Sulfate [Iron (65 MG 975 mg PO PC-LUNCH 04/15/23 09/08/23 History Elemental)] Fluticasone Propion/Salmeterol 1 puff INHALATION RT-BID 04/15/23 09/08/23 History [Advair 250-50 Diskus] Montelukast [Singulair] 10 mg PO HS 04/15/23 09/08/23 History Ondansetron Odt [Zofran ODT] 8 mg PO DAILY PRN 04/15/23 09/08/23 History Tamsulosin [Flomax] 0.4 mg PO DAILY 04/15/23 09/08/23 History carvediloL [Coreg] 3.125 mg PO BID 04/15/23 09/08/23 History Binimetinib [Mektovi] 30 mg PO BID 06/08/23 09/08/23 History Encorafenib [Braftovi] 300 mg PO DAILY 06/08/23 09/08/23 History Albuterol Nebulized [Ventolin 2.5 mg INHALATION RT-BID 09/08/23 09/08/23 History Nebulized] Benralizumab [Fasenra] 30 mg SQ Q42D 09/08/23 09/08/23 History Calcium Carbonate [Calcium] 600 mg PO BID@1200,2100 09/08/23 09/08/23 History Cholecalciferol [Vitamin D3 (10 10 mcg PO BID@1200,2100 09/08/23 09/08/23 History Mcg = 400 Iu)] Docusate Sodium 250 mg PO DAILY 09/08/23 09/08/23 History Ezetimibe [Zetia] 10 mg PO DAILY 09/08/23 09/08/23 History Levofloxacin [Levaquin] 750 mg PO DAILY 09/08/23 09/08/23 History Omeprazole [PriLOSEC] 40 mg PO DAILY 09/08/23 09/08/23 History Zoledronic Acid [Zometa] 4 mg IV Q90D 09/08/23 09/08/23 History Allergies Allergy/AdvReac Type Severity Reaction Status Date / Time No Known Allergies Allergy Verified 09/08/23 09:55 Physical Exam Vitals: Vital Signs Temp Pulse Pulse Resp BP BP Pulse Ox 09/08/23 12:41 98.3 F 88 18 106/60 95 09/08/23 12:06 91 96 09/08/23 11:55 84 09/08/23 10:00 82 19 98/60 95 09/08/23 09:00 92 19 97/60 94 L 09/08/23 08:02 89 09/08/23 08:00 86 18 94/53 95 09/08/23 07:53 96 09/08/23 07:50 84 09/08/23 06:00 80 20 102/56 95 09/08/23 05:00 82 16 95/72 93 L 09/08/23 04:03 20 09/08/23 04:00 76 13 100/59 91 L 09/08/23 03:30 84 20 94/62 94 L 09/08/23 03:00 86 20 90/56 94 L 09/08/23 02:38 80 18 95/57 91 L 09/08/23 02:22 82 19 86/47 88 L 09/08/23 01:46 85 19 97/54 90 L 09/07/23 23:59 97.7 F 76 19 91/64 93 L 09/07/23 22:58 93 09/07/23 22:53 87 09/07/23 22:15 90 18 89/57 92 L 09/07/23 21:07 90 09/07/23 21:03 88 09/07/23 20:51 87 20 84/47 94 L 09/07/23 20:41 86 20 77/43 93 L 09/07/23 19:48 97.8 F 101 H 22 89/50 85 L Intake and Output 09/07/23 09/08/23 09/08/23 22:59 06:59 14:59 Intake Total 260 510 Output Total 610 2880 Balance -350 -2370 Intake: IV 10 Invasive Line 2 10 Intake, IV Titration 260 440 Amount Sodium Chloride 0.9% 1, 260 000 ml @ 50 mls/hr IV . Q20H CLYDE Rx#:[id number] Sodium Chloride 0.9% 1, 440 000 ml @ 999 mls/hr IV . Q1H1M STA Rx#:[id number] Oral 60 Output: Urine 610 2880 Uretheral (Miner) 250 Other: Weight 93.44 kg GENERAL EXAM: Alert, weak 78-year-old male, on 8 L high flow nasal cannula, fairly comfortable in no apparent distress. HEAD: Normocephalic. EYES: Normal reaction of pupils, equal size. NOSE: Clear with pink turbinates. THROAT: No erythema or exudates. NECK: No masses, no JVD. CHEST: No chest wall deformity. LUNGS: Equal air entry with crackles in the bilateral bases. CVS: S1 and S2 normal with no audible murmur, regular rhythm. ABDOMEN: No hepatosplenomegaly, normal bowel sounds, no guarding or rigidity. SPINE: No scoliosis or deformity SKIN: No rashes CENTRAL NERVOUS SYSTEM: No focal deficits, tone is normal in all 4 extremities. EXTREMITIES: There is 2+ peripheral edema. No clubbing, no cyanosis. Periphera l pulses are intact. Results - Laboratory Findings CBC and BMP: 09/08/23 06:35 09/08/23 06:35 PT/INR, D-dimer PT 12.4 sec (10.0-12.5) 09/07/23 20:15 INR 1.2 (<1.2) H 09/07/23 20:15 D-Dimer 0.44 mg/L FEU (<0.60) 09/07/23 23:40 Abnormal lab findings: Abnormal Labs 09/07/23 09/07/23 09/07/23 20:15 20:15 20:15 WBC RBC 3.22 L Hgb 9.8 L Hct 31.2 L MCHC RDW 18.3 H Plt Count Lymphocytes # Lymphocytes # (Manual) 0.64 L INR 1.2 H Sodium 136 L Chloride BUN 36 H Creatinine 1.88 H Calcium 8.1 L Total Protein 6.0 L Albumin 2.7 L 09/08/23 09/08/23 06:35 06:35 WBC 2.9 L RBC 2.77 L Hgb 8.2 L D Hct 27.4 L MCHC 30.0 L RDW 18.4 H Plt Count 137 L Lymphocytes # 0.7 L Lymphocytes # (Manual) INR Sodium Chloride 111 H BUN 31 H Creatinine 1.55 H Calcium 7.2 L Total Protein 5.0 L Albumin 2.2 L - Diagnostic Findings Chest x-ray: image reviewed CT scan - chest: image reviewed Assessment and Plan Assessment: Acute hypoxemic respiratory failure secondary to bilateral pleural effusions, possible underlying pneumonitis/pneumonia, congestive heart failure Generalized weakness secondary to hypotension and anemia Pancytopenia Small pericardial effusion Acute kidney injury suspect secondary to hypotension/dehydration Metastatic stage IV lung cancer non-small cell adenocarcinoma and some suspicion for small cell lung cancer based on tumor markers, genetic mutations. Complete d palliative radiation to the sternum and left scapula. Completed chemotherapy of carboplatin/etoposide/Tecentriq. Currently on Braftovi and Mektovi. Discontinued earlier this week due to above symptoms. PET scan from May 2023 revealed left perihilar and left lower lung nodule with increased uptake concerning for primary malignancy with evidence of scattered metastatic disease throughout the osseous structures. History of mild intermittent chronic bronchial asthma Former smoker Hypertension Hyperlipidemia Obstructive sleep apnea History of depression Plan: The patient was seen and evaluated CT angiogram chest, chest x-ray, venous Dopplers reviewed CT scan of the brain, labs and medications reviewed Echocardiogram pending Continue bronchodilators and steroids Continue antibiotics, procalcitonin pending Continue IV diuretics We will continue to follow and make further recommendations based on his clinical status I have personally seen and examined the patient, performed the documentation and the assessment and plan as written. Number of minutes spent on the visit: 20.
[2023-09-08] MEDS: carvediloL 3.125 MG TAB PO SCH (16:05)
[2023-09-08 20:25] LABS: Glucose,Whole Blood 135 mg/dL (70-110)
[2023-09-08] MEDS: LEVOFLOXACIN 750MG-D5W PMX 750 MG in DEXTROSE/WATER 1 150ML.BAG IVPB SCH (21:21)
--- NOTE | 2023-09-08 22:58 | XR ---
EXAMINATION TYPE: XR chest 1V DATE OF EXAM: 09/08/2023 COMPARISON: 09/07/2023 INDICATION: Cancer TECHNIQUE: Single frontal view of the chest is obtained. FINDINGS: The heart size is normal. The pulmonary vasculature is prominent. Mild diffuse increased lung markings are present greater in the lung bases. Correlate for volume over load. Small left pleural effusion may be present. IMPRESSION: 1. Bibasilar infiltrates. Correlate for pulmonary edema. Atelectasis and pneumonia can be considered. There is a small left pleural effusion.
--- NOTE | 2023-09-08 23:31 | P.CONS ---
History of Present Illness - Reason for Consult Consult date: 09/08/23 NSCLC on treatment Requesting physician: Kj Nixon - Chief Complaint weak - History of Present Illness Mr. Babcock is a 77-year-old gentleman with a past medical history significant for COPD and lung cancer. He is a patient of Dr. Monica bobby. He was initially s een in consultation at [facility] on 01/07/2023, presented with persistent left-sided chest discomfort radiating to the left shoulder, which had been occurring over 2 months prior to his presentation. CTA 01/07/2023 was negative for PE, but did reveal enlarged left lower lung mass measuring 4.2 x 2.1 cm extending towards the pulmonary hilum. In addition, there was an erosive sternal mass measuring at least 3.4 x 2.5 cm along with possible lytic lesion at T1 vertebrae measuring up to 1.[address] of the head without contrast revealed no acute intracranial process. Biopsy of the sternal mass on 01/10/2023 revealed morphologic features consistent with both adenocarcinoma and ne uroendocrine tumor. IHC was positive for TTF-1, synaptophysin, Napsin, and focal positivity for CD56 and high Ki-67 proliferative index. P40 and p63 were both negative. Following discharge, PET/CT 01/21/2023 at [facility] revealed mild FDG avidity in the lower lobe medial left lung nodule that was above the average liver SUV. There is increased FDG avidity in the sternal lesion as well as bone lesion in the posterior lateral left scapula. 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 Following his initial visit, there was a concern for potential of small cell lung cancer. He underwent 5 fractions of palliative radiation to the sternum and left scapula receiving a total of 35 Gy completed on 02/14/2023. He initiated cycle 1 of carboplatin/etoposide/Tecentriq due to this concern on 02/16/2023 through 02/18/2023. NGS from biopsy and circulating tumor DNA was significant for BRAF V600E mutation with no TP53 or RB1 mutations typically seen in small cell lung cancer. PD-L1 expression was less than 1%. Upon additional review of his pathology in light of his molecular profiling, it appears adenocarcinoma is the dominant histology with the synaptophysin being a component of adenocarcinoma with negative chromogranin. Moreover, molecular profiling did not reveal any typical mutations seen in small cell carcinoma. Treatment was switched to carboplatin/Alimta with cycle 1 on 03/17/2023 followed by cycle 2 on 04/07/2023 given with GCSF. He required hospitalization for progressive fatigue with nausea and diarrhea prompting hospitalizations. At his clinic visit on 04/14 it was decided to hold on administering any further chemo therapy to allow him to recover from the 2 cycles of carboplatin/Alimta. CT CAP 06/14/23 showed stable disease. After he recovered his treatment was changed to targeted therapy with dabrafenib/trametinib in May 2023. MRI of the neck and brain ordered for new neck pain performed on 05/27/2023 and 05/31/2023 revealed no evidence of intracranial metastases with new T1 vertebral body lesion along with degenerative changes from C2-C6. PET/CT 06/24/2023 revealed FDG uptake in the known areas of disease along with T1 vertebral body. He received 24 Moore in 3 fractions of palliative radiation therapy to the T1 vertebral body completed on 07/22/2023. Mid July 2023, he did have admission to [facility] due to influenza A and B, he was treated with IV antibiotics and Tamiflu with progressive improvement. He was seen in the office 2 days ago with c/o progressive fatigue, weakness, and intermittent confusion x 3 days. He had Chest x-ray rule out superimposed bacterial pneumonia given his recent influenza A and B, started on abx, braftovi/mektovi held. MRI brain was ordered, that is going to be done today. He was brought to hospital because of progressive SOB, he couldn't walk to kitchen wihtout wheezing. CTA no pl eff or PE. Small pericardial effusion. Brain CT w/w/o neg for acute process. No DVT. Pt feels breathing is a little better when seen, he is on 9L. Denied fevers, N,V, appetite is fair/poor, no acute changes in bowel or bladder habits. Treatment f/u PET/CT is currently scheduled for 09/22/2023 Review of Systems 10 point ROS is neg except as stated in HPI Past Medical History Past Medical History: Asthma, Cancer, GERD/Reflux, Hyperlipidemia, Hypertension, Pneumonia, Prostate Disorder, Sleep Apnea/CPAP/BIPAP Additional Past Medical History / Comment(s): cardiomyopathy, hiatal hernia, anemia, lung cancer diagnosed 12/29/2022 (last chemo finished 04/07/2023) History of Any Multi-Drug Resistant Organisms: None Reported Past Surgical History: Hernia Repair, Joint Replacement, Orthopedic Surgery Additional Past Surgical History / Comment(s): colonoscopy,EGD, Antonina hip replacments, antnoina fx ankles, screws removed from rt ankle Past Anesthesia/Blood Transfusion Reactions: No Reported Reaction Past Psychological History: Depression Smoking Status: Former smoker Past Alcohol Use History: Occasional Past Drug Use History: None Reported Medications and Allergies Home Medications Medication Instructions Recorded Confirmed Type Furosemide [Lasix] 40 mg PO DAILY 01/03/14 09/08/23 History Pramipexole Di-HCl [Mirapex] 1.5 mg PO BID 01/03/14 09/08/23 History allopurinoL [Zyloprim] 100 mg PO HS 01/03/14 09/08/23 History Albuterol Sulfate [Albuterol 1 - 2 puff PO RT-Q4H PRN 04/15/23 09/08/23 History Sulfate Hfa] Ergocalciferol (Vitamin D2) 1,250 mcg PO Q14D 04/15/23 09/08/23 History [Drisdol (50,000 Iu)] Ferrous Sulfate [Iron (65 MG 975 mg PO PC-LUNCH 04/15/23 09/08/23 History Elemental)] Fluticasone Propion/Salmeterol 1 puff INHALATION RT-BID 04/15/23 09/08/23 History [Advair 250-50 Diskus] Montelukast [Singulair] 10 mg PO HS 04/15/23 09/08/23 History Ondansetron Odt [Zofran ODT] 8 mg PO DAILY PRN 04/15/23 09/08/23 History Tamsulosin [Flomax] 0.4 mg PO DAILY 04/15/23 09/08/23 History carvediloL [Coreg] 3.125 mg PO BID 04/15/23 09/08/23 History Binimetinib [Mektovi] 30 mg PO BID 06/08/23 09/08/23 History Encorafenib [Braftovi] 300 mg PO DAILY 06/08/23 09/08/23 History Albuterol Nebulized [Ventolin 2.5 mg INHALATION RT-BID 09/08/23 09/08/23 History Nebulized] Benralizumab [Fasenra] 30 mg SQ Q42D 09/08/23 09/08/23 History Calcium Carbonate [Calcium] 600 mg PO BID@1200,2100 09/08/23 09/08/23 History Cholecalciferol [Vitamin D3 (10 10 mcg PO BID@1200,2100 09/08/23 09/08/23 History Mcg = 400 Iu)] Docusate Sodium 250 mg PO DAILY 09/08/23 09/08/23 History Ezetimibe [Zetia] 10 mg PO DAILY 09/08/23 09/08/23 History Levofloxacin [Levaquin] 750 mg PO DAILY 09/08/23 09/08/23 History Omeprazole [PriLOSEC] 40 mg PO DAILY 09/08/23 09/08/23 History Zoledronic Acid [Zometa] 4 mg IV Q90D 09/08/23 09/08/23 History Allergies Allergy/AdvReac Type Severity Reaction Status Date / Time No Known Allergies Allergy Verified 09/08/23 09:55 Physical Exam Vitals: Vital Signs Temp Pulse Resp BP Pulse Ox 09/08/23 08:02 89 09/08/23 07:53 96 09/08/23 07:50 84 09/08/23 06:00 80 20 102/56 95 09/08/23 05:00 82 16 95/72 93 L 09/08/23 04:03 20 09/08/23 04:00 76 13 100/59 91 L 09/08/23 03:30 84 20 94/62 94 L 09/08/23 03:00 86 20 90/56 94 L 09/08/23 02:38 80 18 95/57 91 L 09/08/23 02:22 82 19 86/47 88 L 09/08/23 01:46 85 19 97/54 90 L 09/07/23 23:59 97.7 F 76 19 91/64 93 L 09/07/23 22:58 93 09/07/23 22:53 87 09/07/23 22:15 90 18 89/57 92 L 09/07/23 21:07 90 09/07/23 21:03 88 09/07/23 20:51 87 20 84/47 94 L 09/07/23 20:41 86 20 77/43 93 L 09/07/23 19:48 97.8 F 101 H 22 89/50 85 L Intake and Output 09/07/23 09/08/23 09/08/23 22:59 06:59 14:59 Intake Total 260 130 Output Total 610 40 Balance -350 90 Intake: Intake, IV Titration 260 130 Amount Sodium Chloride 0.9% 1, 260 000 ml @ 130 mls/hr IV . Q7H42M CLYDE Rx#:[id number] Sodium Chloride 0.9% 1, 130 000 ml @ 999 mls/hr IV . Q1H1M STA Rx#:[id number] Output: Urine 610 40 Uretheral (Miner) 250 Other: Weight 93.44 kg - Constitutional General appearance: average body habitus, cooperative, mild distress - EENT dry mucus membranes Eyes: anicteric sclerae, EOMI ENT: hearing grossly normal - Neck Neck: no lymphadenopathy - Respiratory Respiratory: right: CTA, left: diminished - Cardiovascular Rhythm: regular Heart sounds: normal: S1, S2 Abnormal Heart Sounds: systolic murmur, no diastolic murmur, no rub, no S3 Gallop, no S4 Gallop, no click, no other leg Peripheral Edema: bilateral: Trace - Gastrointestinal General gastrointestinal: no absent bowel sounds, no decreased bowel sounds, no distended, no hepatomegaly, no hyperactive bowel sounds, normal bowel sounds, no organomegaly, no rigid, no scaphoid, soft, no splenomegaly, no tenderness, no umbilical hernia, no ventral hernia - Neurologic Neurologic: CNII-XII intact - Musculoskeletal Musculoskeletal: generalized weakness - Psychiatric Psychiatric: A&O x's 3, appropriate affect, intact judgment & insight Results CBC & Chem 7: 09/08/23 06:35 09/08/23 06:35 Labs: Abnormal Lab Results - Last 24 Hours (Table) 09/07/23 09/07/23 09/07/23 Range/Units 20:15 20:15 20:15 WBC (3.8-10.6) k/uL RBC 3.22 L (4.30-5.90) m/uL Hgb 9.8 L (13.0-17.5) gm/dL Hct 31.2 L (39.0-53.0) % MCHC (31.0-37.0) g/dL RDW 18.3 H (11.5-15.5) % Plt Count (150-450) k/uL Lymphocytes # (1.0-4.8) k/uL Lymphocytes # (Manual) 0.64 L (1.0-4.8) k/uL INR 1.2 H (<1.2) Sodium 136 L (137-145) mmol/L Chloride (98-107) mmol/L BUN 36 H (9-20) mg/dL Creatinine 1.88 H (0.66-1.25) mg/dL Calcium 8.1 L (8.4-10.2) mg/dL Total Protein 6.0 L (6.3-8.2) g/dL Albumin 2.7 L (3.5-5.0) g/dL 09/08/23 09/08/23 Range/Units 06:35 06:35 WBC 2.9 L (3.8-10.6) k/uL RBC 2.77 L (4.30-5.90) m/uL Hgb 8.2 L D (13.0-17.5) gm/dL Hct 27.4 L (39.0-53.0) % MCHC 30.0 L (31.0-37.0) g/dL RDW 18.4 H (11.5-15.5) % Plt Count 137 L (150-450) k/uL Lymphocytes # 0.7 L (1.0-4.8) k/uL Lymphocytes # (Manual) (1.0-4.8) k/uL INR (<1.2) Sodium (137-145) mmol/L Chloride 111 H (98-107) mmol/L BUN 31 H (9-20) mg/dL Creatinine 1.55 H (0.66-1.25) mg/dL Calcium 7.2 L (8.4-10.2) mg/dL Total Protein 5.0 L (6.3-8.2) g/dL Albumin 2.2 L (3.5-5.0) g/dL Chest x-ray: report reviewed CT scan - chest: report reviewed CT Scan - head: report reviewed Venous US: report reviewed Assessment and Plan (1) COPD (chronic obstructive pulmonary disease) Current Visit: Yes Status: Acute Priority: High Code(s): J44.9 - CHRONIC OBSTRUCTIVE PULMONARY DISEASE, UNSPECIFIED SNOMED Code(s): 67287162 (2) Weakness Current Visit: Yes Status: Acute Priority: High Code(s): R53.1 - WEAKNESS SNOMED Code(s): 86409984 (3) Lung cancer Current Visit: Yes Status: Acute Priority: High Code(s): C34.90 - MALIGNANT NEOPLASM OF UNSP PART OF UNSP BRONCHUS OR LUNG SNOMED Code(s): 376112630 Plan: COPD exacerbation -Admitted with c/o SOB, wheezing -CTA neg for PE, small pericardial effusion. CXR small to moderate left pleural effusion. Slight increase congestion and mid to lower lung infiltrates, most suggestive of edema and atelectasis. -Cardiology has seen pt for pericardial effusion and possible CHF. Pending ECHO -Pulmonary has seen pt and is treating with abx, steroids. Defer for mgmt of the same Confusion - CT of the brain negative for acute process -MRI was ordered, pending results Mixed histology lung adenocarcinoma/NET -Diagnosis and treatment as stated in HPI -BRAF targeted therapy started in May. Pt has done well overall. Due for treatment f/u PET in a few weeks -Hold treatment while being treated for acute illness Treatment induced pancytopenia -WBC 2.9, ANC 1700, no GCSF at this time -Hgb 8.2. Transfuse for Hgb < 7 -Plt 137,000, no acute intervention required. -Monitor CBC during acute illness inpt. -Braftovi/mektovi has been held BLE venous Doppler negative for DVT Attests: I have seen and examined pt, performed H&P, developed impression and plan of care. Discussed with dictator. Agree with documentation, dictated as a scribe.
[2023-09-09] MEDS: allopurinoL 100 MG TAB PO SCH (00:04)
--- NOTE | 2023-09-09 00:19 | P.HPIM ---
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 Patient completed radiation treatment to the sternum and left scapula. Patient is s/p chemotherapy and is currently on Braftovi and Mektovi. Patient presents to ER with complaints of worsening shortness of breath cough and congestion. Patient was recently found to have low blood pressure and hypoxia and generalized weakness and lower EXTR edema and cough and congestion. His immunotherapy was stopped by oncology and was started on antibiotics at home on Levaquin. Patient presents to ER due to symptoms not improving. Denies any fever or chills. No chest pain. No nausea vomiting or diarrhea. EKG showed sinus rhythm with low voltage QRS in the precordial leads. Chest x-ray showed small to moderate left pleural effusion similar to previous. Slight increased congestion mid to lower lung infiltrates, most suggestive of edema and atelectasis. Superimposed infection should be clinically excluded. CT head showed no acute process. Venous duplex showed no evidence of DVT. CTA chest was done to rule out PE showed a small pericardial effusion. Bilateral pleural effusions and no large central pulmonary embolus. Laboratory data showed WBCs 4.0 hemoglobin 9.8 and platelets 157 sodium 136 potassium 4.1 chloride 106 bicarb is 26 BUN 36 and creatinine 1.88 and calcium 8.1 proBNP 5480 and albumin 2.7. Urine Legionella antigen negative. Review of Systems Constitutional: Patient denies any fever or chills . Patient does have generalized weakness. No weight loss. Abdomen: Patient denied nausea vomiting and diarrhea and abdominal pain. Cardiovascular: Patient denies any chest pain. Positive for short of breath no palpitations. Respiratory: patient does have cough congestion and shortness of breath Neurologic: Patient denied any numbness or tingling. no headache. Musculoskeletal: Patient denies any complaints of joint swelling or deformity. Skin: Negative Psychiatric: Negative Endocrine: No heat or cold intolerance. No recent weight gain. Genitourinary: No dysuria or hematuria. All other 14 point ROS negative except the above Past Medical History Past Medical History: Asthma, Cancer, GERD/Reflux, Hyperlipidemia, Hypertension, Pneumonia, Prostate Disorder, Sleep Apnea/CPAP/BIPAP Additional Past Medical History / Comment(s): cardiomyopathy, hiatal hernia, anemia, lung cancer diagnosed 12/29/2022 (last chemo finished 04/07/2023) History of Any Multi-Drug Resistant Organisms: None Reported Past Surgical History: Hernia Repair, Joint Replacement, Orthopedic Surgery Additional Past Surgical History / Comment(s): colonoscopy,EGD, Scotty hip replacments, scotty fx ankles, screws removed from rt ankle Past Anesthesia/Blood Transfusion Reactions: No Reported Reaction Past Psychological History: Depression Smoking Status: Former smoker Past Alcohol Use History: Occasional Past Drug Use History: None Reported Medications and Allergies Home Medications Medication Instructions Recorded Confirmed Type Furosemide [Lasix] 40 mg PO DAILY 01/03/14 09/08/23 History Pramipexole Di-HCl [Mirapex] 1.5 mg PO BID 01/03/14 09/08/23 History allopurinoL [Zyloprim] 100 mg PO HS 01/03/14 09/08/23 History Albuterol Sulfate [Albuterol 1 - 2 puff PO RT-Q4H PRN 04/15/23 09/08/23 History Sulfate Hfa] Ergocalciferol (Vitamin D2) 1,250 mcg PO Q14D 04/15/23 09/08/23 History [Drisdol (50,000 Iu)] Ferrous Sulfate [Iron (65 MG 975 mg PO PC-LUNCH 04/15/23 09/08/23 History Elemental)] Fluticasone Propion/Salmeterol 1 puff INHALATION RT-BID 04/15/23 09/08/23 History [Advair 250-50 Diskus] Montelukast [Singulair] 10 mg PO HS 04/15/23 09/08/23 History Ondansetron Odt [Zofran ODT] 8 mg PO DAILY PRN 04/15/23 09/08/23 History Tamsulosin [Flomax] 0.4 mg PO DAILY 04/15/23 09/08/23 History carvediloL [Coreg] 3.125 mg PO BID 04/15/23 09/08/23 History Binimetinib [Mektovi] 30 mg PO BID 06/08/23 09/08/23 History Encorafenib [Braftovi] 300 mg PO DAILY 06/08/23 09/08/23 History Albuterol Nebulized [Ventolin 2.5 mg INHALATION RT-BID 09/08/23 09/08/23 History Nebulized] Benralizumab [Fasenra] 30 mg SQ Q42D 09/08/23 09/08/23 History Calcium Carbonate [Calcium] 600 mg PO BID@1200,2100 09/08/23 09/08/23 History Cholecalciferol [Vitamin D3 (10 10 mcg PO BID@1200,2100 09/08/23 09/08/23 History Mcg = 400 Iu)] Docusate Sodium 250 mg PO DAILY 09/08/23 09/08/23 History Ezetimibe [Zetia] 10 mg PO DAILY 09/08/23 09/08/23 History Levofloxacin [Levaquin] 750 mg PO DAILY 09/08/23 09/08/23 History Omeprazole [PriLOSEC] 40 mg PO DAILY 09/08/23 09/08/23 History Zoledronic Acid [Zometa] 4 mg IV Q90D 09/08/23 09/08/23 History Allergies Allergy/AdvReac Type Severity Reaction Status Date / Time No Known Allergies Allergy Verified 09/08/23 09:55 Physical Exam Vitals: Vital Signs Temp Pulse Resp BP Pulse Ox 09/08/23 10:00 82 19 98/60 95 09/08/23 09:00 92 19 97/60 94 L 09/08/23 08:02 89 09/08/23 08:00 86 18 94/53 95 09/08/23 07:53 96 09/08/23 07:50 84 09/08/23 06:00 80 20 102/56 95 09/08/23 05:00 82 16 95/72 93 L 09/08/23 04:03 20 09/08/23 04:00 76 13 100/59 91 L 09/08/23 03:30 84 20 94/62 94 L 09/08/23 03:00 86 20 90/56 94 L 09/08/23 02:38 80 18 95/57 91 L 09/08/23 02:22 82 19 86/47 88 L 09/08/23 01:46 85 19 97/54 90 L 09/07/23 23:59 97.7 F 76 19 91/64 93 L 09/07/23 22:58 93 09/07/23 22:53 87 09/07/23 22:15 90 18 89/57 92 L 09/07/23 21:07 90 09/07/23 21:03 88 09/07/23 20:51 87 20 84/47 94 L 09/07/23 20:41 86 20 77/43 93 L 09/07/23 19:48 97.8 F 101 H 22 89/50 85 L Intake and Output 09/07/23 09/08/23 09/08/23 22:59 06:59 14:59 Intake Total 260 500 Output Total 610 780 Balance -350 -280 Intake: Intake, IV Titration 260 440 Amount Sodium Chloride 0.9% 1, 260 000 ml @ 50 mls/hr IV . Q20H CLYDE Rx#:[id number] Sodium Chloride 0.9% 1, 440 000 ml @ 999 mls/hr IV . Q1H1M STA Rx#:[id number] Oral 60 Output: Urine 610 780 Uretheral (Miner) 250 Other: Weight 93.44 kg PHYSICAL EXAMINATION: Patient is lying in the bed comfortably, no acute distress, awake alert and oriented.. HEENT: Normocephalic. Neck is supple. Pupils reactive. Nostrils clear. Oral cavity is moist. Neck reveals no JVD, carotid bruits, or thyromegaly. CHEST EXAMINATION: Trachea is central. Symmetrical expansion. Bibasilar crackles. No wheezing.. CARDIAC: Normal S1, S2 with no gallops. No murmurs ABDOMEN: Soft. Bowel sounds normal. No organomegaly. No abdominal bruits. Extremities: Bilateral lower extremity trace edema. No clubbing or cyanosis Neurologically awake, alert, oriented x3 with well-coordinated movements. No focal deficits noted Skin: No rash or skin lesions. Psychiatric: Coperative. Nonsuicidal Musculoskeletal: No joint swelling or deformity. Normal range of motion. Results CBC & Chem 7: 09/08/23 06:35 09/08/23 06:35 Labs: Abnormal Lab Results - Last 24 Hours (Table) 09/07/23 09/07/23 09/07/23 Range/Units 20:15 20:15 20:15 WBC (3.8-10.6) k/uL RBC 3.22 L (4.30-5.90) m/uL Hgb 9.8 L (13.0-17.5) gm/dL Hct 31.2 L (39.0-53.0) % MCHC (31.0-37.0) g/dL RDW 18.3 H (11.5-15.5) % Plt Count (150-450) k/uL Lymphocytes # (1.0-4.8) k/uL Lymphocytes # (Manual) 0.64 L (1.0-4.8) k/uL INR 1.2 H (<1.2) Sodium 136 L (137-145) mmol/L Chloride (98-107) mmol/L BUN 36 H (9-20) mg/dL Creatinine 1.88 H (0.66-1.25) mg/dL Calcium 8.1 L (8.4-10.2) mg/dL Total Protein 6.0 L (6.3-8.2) g/dL Albumin 2.7 L (3.5-5.0) g/dL 09/08/23 09/08/23 Range/Units 06:35 06:35 WBC 2.9 L (3.8-10.6) k/uL RBC 2.77 L (4.30-5.90) m/uL Hgb 8.2 L D (13.0-17.5) gm/dL Hct 27.4 L (39.0-53.0) % MCHC 30.0 L (31.0-37.0) g/dL RDW 18.4 H (11.5-15.5) % Plt Count 137 L (150-450) k/uL Lymphocytes # 0.7 L (1.0-4.8) k/uL Lymphocytes # (Manual) (1.0-4.8) k/uL INR (<1.2) Sodium (137-145) mmol/L Chloride 111 H (98-107) mmol/L BUN 31 H (9-20) mg/dL Creatinine 1.55 H (0.66-1.25) mg/dL Calcium 7.2 L (8.4-10.2) mg/dL Total Protein 5.0 L (6.3-8.2) g/dL Albumin 2.2 L (3.5-5.0) g/dL Thrombosis Risk Factor Assmnt - DVT/VTE Prophylaxis DVT/VTE Prophylaxis: Pharmacologic Prophylaxis ordered Assessment and Plan Assessment: Acute hypoxemic respiratory failure secondary to bilateral pleural effusions with possible underlying pneumonia/pneumonitis and CHF. Acute on chronic HFpEF Small pericardial effusion Metastatic adenocarcinoma of the lung with mets to liver and bone. Status post palliative radiation and chemotherapy currently on Braftovi and Mektovi. Discontinued earlier this week due to worsening symptoms of shortness of breath and hypoxia. Pancytopenia likely due to immunotherapy Acute kidney injury due to prerenal. Possible cardiorenal History of cardiomyopathy ejection fraction 40% currently recovered EF Hypertension Anemia Obstructive sleep apnea Depression GI and DVT prophylaxis with PPI and Lovenox subcu Plan: Patient will be continued on IV diuresis with Lasix and oxygen supplementation. Continue with antibiotics and Pro-Malvin level was ordered. Continue with DuoNebs and was also started on IV steroids Solu-Medrol 60 mg every 6 hourly. 2D echocardiogram was ordered. Cardiology and pulmonary is on board. Prognosis guarded with multiple medical problems and comorbid conditions. Time with Patient: Greater than 30
[2023-09-09 06:06] LABS: Glucose,Whole Blood 130 mg/dL (70-110)
[2023-09-09 07:46] LABS: Anisocytosis Slight; Basophils % (A) 0 %; Eosinophils % (A) 0 %; HCT 28.4 % (39.0-53.0); HGB 8.6 gm/dL (13.0-17.5); Hypochromasia Marked; Lymphocytes # (A) 0.7 k/uL (1.0-4.8); Lymphocytes % (A) 22 %; MCH 30.1 pg (25.0-35.0); MCHC 30.2 g/dL (31.0-37.0); MCV 99.5 fL (80.0-100.0); Macrocytosis Slight; Mean Platelet Volume 9.8; Monocytes # (A) 0.1 k/uL (0-1.0); Monocytes % (A) 3 %; Neutrophils # (A) 2.2 k/uL (1.3-7.7); Neutrophils % (A) 72 %; Platelet Count 150 k/uL (150-450); RBC 2.85 m/uL (4.30-5.90); RDW 18.5 % (11.5-15.5)
[2023-09-09 08:12] LABS: African American GFR (CKD) 53 (>60 ml/min/1.73 sqM); Anion Gap 4 mmol/L; Blood Urea Nitrogen 27 mg/dL (9-20); Calcium 7.2 mg/dL (8.4-10.2); Carbon Dioxide 25 mmol/L (22-30); Chloride 110 mmol/L (98-107); Glucose 130 mg/dL (74-99); Non-African American GFR(CKD) 46 (>60 ml/min/1.73 sqM); Potassium 4.2 mmol/L (3.5-5.1); Sodium 139 mmol/L (137-145)
[2023-09-09] MEDS ORDERED: NON FORMULARY DRUG (Omeprazole 40 MG Capsule.Dr) PO SCH (09:00)
[2023-09-09] MEDS: ENOXAPARIN 40 MG/0.4 ML SYRINGE SQ SCH (09:49)
[2023-09-09] MEDS: PRAMIPEXOLE 0.5 MG TAB PO SCH (09:50)
[2023-09-09] MEDS: EZETIMIBE 10 MG TAB PO SCH (09:50)
[2023-09-09] MEDS: TAMSULOSIN 0.4 MG CAP.ER.24H PO SCH (09:50)
[2023-09-09 11:30] LABS: Glucose,Whole Blood 116 mg/dL (70-110)
--- NOTE | 2023-09-09 12:59 | CA ---
Transthoracic Echo Report Name: Jett Babcock Age: 78 Gender: M : 1945 Exam Date: 09/08/2023 14:33 Exam Location: [facility] Ht (in): 70 Wt (lb): 206 Ordering Physician: Kj Nixon DO Attending/Referring Phys: [id number], Tiffani Manager Helpdesk Barb Sahni RDCS Procedure CPT: Indications: PE Cardiac Hx: Technical Quality: Fair Contrast 1: Total Dose (mL): Contrast 2: Total Dose (mL): MEASUREMENTS (Male / Female) Normal Values 2D ECHO LV Diastolic Diameter PLAX 5.3 cm 4.2 - 5.9 / 3.9 - 5.3 cm LV Systolic Diameter PLAX 3.0 cm IVS Diastolic Thickness 1.3 cm 0.6 - 1.0 / 0.6 - 0.9 cm LVPW Diastolic Thickness 1.5 cm 0.6 - 1.0 / 0.6 - 0.9 cm LV Relative Wall Thickness 0.5 DOPPLER AV Peak Velocity 321.3 cm/s AV Peak Gradient 41.3 mmHg AV Mean Velocity 225.4 cm/s AV Mean Gradient 22.3 mmHg AV Velocity Time Integral 61.7 cm AI Peak Velocity 400.2 cm/s AI Peak Gradient 64.1 mmHg AI Pressure Half Time 457.6 ms FINDINGS Left Ventricle Mildly increased left ventricular wall thickness. Left ventricular cavity size normal. Normal left ventricular systolic function with no obvious regional wall motion abnormalities. Left ventricular ejection fraction is estimated at 55-60 %. Right Ventricle Right Atrium Left Atrium Mitral Valve Aortic Valve [id number] aortic stenosis with a peak gradient of 41 mmHg and a mean gradient of 22 mmHg. Mild aortic regurgitation. Tricuspid Valve Pulmonic Valve Pericardium Small pericardial effusion. Aorta CONCLUSIONS Limited 2-D echo Mildly increased left ventricular wall thickness Left ventricular ejection fraction 55-60% Mild to moderate aortic stenosis Small pericardial effusion without tamponade physiology Previewed by: Dr. Rojas Levy DO (Electronically Signed) Final Date: 09 September 2023 12:58
--- NOTE | 2023-09-09 13:12 | P.PN ---
Subjective HISTORY OF PRESENT ILLNESS: This is a 78-year-old male with a past medical history significant for lung cancer with metastasis, CHF, hypertension, hyperlipidemia and idiopathic cardiomyopathy with an ejection fraction of 40% in 1999 and with recovered EF. Patient follows in the office with Dr. Rivera. We have been asked to see the patient in consultation for CHF. Patient examined at the bedside in the emergency room. Patient states he was sent in by his oncologist to the emergency room as he has not been feeling well. He reports having shortness of breath for the past few days. He currently denies any chest pain or pressure. Vital signs are stable. DIAGNOSTICS: - EKG reveals sinus mechanism with no signs of acute ischemia - Chest xray small to moderate left pleural effusion. Slight increase congestion and mid to lower lung infiltrates, most suggestive of edema and atelectasis. Superimposed infection should be clinically excluded. - CT of the brain: Negative for acute process - Venous Doppler: Negative for DVT bilaterally - Chest CTA: Small pericardial effusion, bilateral pleural effusions no large central pulmonary embolism - Laboratory data: WBC 2.9. Hemoglobin 8.2. Platelet count 137. D-dimer 0.44. Sodium 138. Potassium 4.0. BUN 31. Creatinine 1.55. Magnesium 1.8. Troponin negative x 1. proBNP 5480. - Current home cardiac medications include Lasix 40 mg daily, Zetia 10 mg daily, carvedilol 3.125 mg twice a day. - Most recent echocardiogram obtained in May 2023 revealed ejection fraction 55 to 60%, mild to moderate aortic stenosis, mild aortic regurgitation, moderate MR, mild TR - Cardiac catheterization history: September 1999 revealing normal coronary arteries - Patient underwent Lexiscan stress test in December 2022 which was abnormal with reversible anterior apical defect-on medical management 09/09/2023 Patient examined this morning. Patient is sitting up in the chair. Patient currently denies chest pain or pressure. He reports improvement in his shortness of breath. He continues to have lower extremity edema. He remains on IV Lasix. Echocardiogram completed revealing ejection fraction 55 to 60%, mild to moderate aortic stenosis, mild aortic regurgitation and small pericardial effusion. Chest x-ray performed yesterday evening revealed bibasilar infiltrates, correlate for pulmonary edema, small left pleural effusion. PHYSICAL EXAM: VITAL SIGNS: Reviewed. GENERAL: Well-developed in no acute distress. HEENT: Head is normocephalic. Pupils are equal, round. Sclerae anicteric. Mucous membranes of the mouth are moist. Neck supple. No JVD or thyromegaly LUNGS: Respirations even and unlabored. Lungs diminished bilaterally HEART: Regular rate and rhythm. S1 and S2 heard. Systolic murmur noted. ABDOMEN: Soft. Nondistended. Nontender. EXTREMITIES: Normal range of motion. No clubbing or cyanosis. Peripheral pulses intact. 2+ bilateral lower extremity edema NEUROLOGIC: Awake and alert. Oriented x 3. ASSESSMENT: Shortness of breath Acute on chronic heart failure with preserved EF Small pericardial effusion Bilateral pleural effusions Mild to moderate aortic stenosis History of metastatic lung CA Abnormal Lexiscan stress test, December 2022, managed medically History of idiopathic cardiomyopathy with a EF of 40% in 1999 with recovered EF Hypertension Hyperlipidemia PLAN: Continue current cardiac medications Continue Lasix 40 mg every 12 hours. Anticipate transition to oral diuretics tomorrow. Daily weights, accurate intake and output, and monitoring of kidney function Further recommendations pending patient course Nurse practitioner note has been reviewed by physician. Signing provider agrees with the documented findings, assessment, and plan of care documented by CD REACTOR OPERATOR HEAD as a scribe. Objective - Vital Signs Vital signs: Vital Signs Temp 97.7 F 09/09/23 12:00 Pulse 76 09/09/23 12:00 Resp 16 09/09/23 12:00 BP 112/62 09/09/23 12:00 Pulse Ox 97 09/09/23 12:00 FiO2 Intake & Output 09/08/23 09/09/23 09/09/23 18:59 06:59 18:59 Intake Total 628 1658 250 Output Total 3430 1725 Balance -2802 -67 250 Weight 93.8 kg Intake: IV 10 10 Invasive Line 2 10 10 Intake, IV Titration 440 600 Amount Levofloxacin 750Mg-D5w 150 Pmx 750 mg In Dextrose/ Water 1 150ml.bag @ 100 mls/hr IVPB Q48H [facility] Rx#: [id number] Sodium Chloride 0.9% 1, 450 000 ml @ 50 mls/hr IV . Q20H [facility] Rx#:[id number] Sodium Chloride 0.9% 1, 440 000 ml @ 999 mls/hr IV . Q1H1M STA Rx#:[id number] Oral 178 1058 240 Output: Urine 3430 1725 Uretheral (Miner) 475 Other: Voiding Method Indwelling Catheter Urinal # Voids 1 - Labs CBC & Chem 7: 09/09/23 06:51 09/09/23 06:51 Labs: Abnormal Lab Results - Last 24 Hours (Table) 09/08/23 09/09/23 09/09/23 Range/Units 20:24 06:04 06:51 WBC 3.0 L (3.8-10.6) k/uL RBC 2.85 L (4.30-5.90) m/uL Hgb 8.6 L (13.0-17.5) gm/dL Hct 28.4 L (39.0-53.0) % MCHC 30.2 L (31.0-37.0) g/dL RDW 18.5 H (11.5-15.5) % Lymphocytes # 0.7 L (1.0-4.8) k/uL Chloride (98-107) mmol/L BUN (9-20) mg/dL Creatinine (0.66-1.25) mg/dL Glucose (74-99) mg/dL POC Glucose (mg/dL) 135 H 130 H (70-110) mg/dL Calcium (8.4-10.2) mg/dL Procalcitonin (0.02-0.09) ng/mL 09/09/23 09/09/23 09/09/23 Range/Units 06:51 06:51 11:28 WBC (3.8-10.6) k/uL RBC (4.30-5.90) m/uL Hgb (13.0-17.5) gm/dL Hct (39.0-53.0) % MCHC (31.0-37.0) g/dL RDW (11.5-15.5) % Lymphocytes # (1.0-4.8) k/uL Chloride 110 H (98-107) mmol/L BUN 27 H (9-20) mg/dL Creatinine 1.44 H (0.66-1.25) mg/dL Glucose 130 H (74-99) mg/dL POC Glucose (mg/dL) 116 H (70-110) mg/dL Calcium 7.2 L (8.4-10.2) mg/dL Procalcitonin 3.30 H (0.02-0.09) ng/mL Microbiology - Last 24 Hours (Table) 09/07/23 23:55 Blood Culture - Preliminary Blood 09/07/23 23:40 Blood Culture - Preliminary Blood
--- NOTE | 2023-09-09 14:09 | P.PN ---
Subjective Progress Note Date: 09/09/23 Principal diagnosis: Acute hypoxemic respiratory failure secondary to bilateral pleural effusions, possible underlying pneumonitis/pneumonia, and acute on chronic diastolic congestive heart failure This is a pleasant 78-year-old male patient with a history of hypertension, hype rlipidemia, mild intermittent chronic bronchial asthma, former smoker. 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 There was also some concern regarding small cell lung cancer based on tumor markers and gene mutations. MRI of the brain was negative for metastasis. He had completed radiation treatments to the sternum and left scapula. He had undergone chemotherapy with carboplatin/etoposide/Tecentriq. He is currently on Braftovi and Mektovi. Earlier this week he had developed low oxygen and low blood pressure, weakness, lower extremity edema, cough and congestion. He was seen by oncology who stopped the Braftovi and Mektovi and initiated him on Levaquin and the patient presented here yesterday for further evaluation. CT scan of the brain revealed no acute abnormalities. Doppler of the lower extremities revealed no evidence of DVT. CT angiogram ruled out central pulmonary embolism. There is small pericardial effusion. Bilateral pleural effusions. Air bronchograms with opacities in the bases. White count 2.9. Hemoglobin 8.2. Platelets 137. Sodium 138. Potassium 4.0. Bicarb 25. BUN 31. Creatinine 1.55. Legionella screen negative. proBNP 5480. Troponin negative. He is seen today in consultation in the emergency department. He is currently on 8 L high flow nasal cannula with O2 saturations in the mid 90s. He has been afebrile. Hemodynamically stable. He has been initiated on Levaquin, Solu-Medrol and albuterol. Echocardiogram pending. Patient was evaluated today on 09/09/2023, patient is feeling better, breathing easier,Remains on 4 L nasal cannula with O2 sats 97%. Chest x-ray yesterday clearly showed evidence of interstitial edema, underlying pneumonitis is not entirely ruled out, echocardiogram showed normal LV function but the patient has mild to moderate aortic stenosis with peak gradient of 41 mmHg and a mean g radient of 22, nonetheless clinically the patient is feeling better and breathing easier. Objective - Vital Signs Vital signs: Vital Signs Temp 97.7 F 09/09/23 12:00 Pulse 76 09/09/23 12:00 Resp 16 09/09/23 12:00 BP 112/62 09/09/23 12:00 Pulse Ox 97 09/09/23 13:23 FiO2 Intake & Output 09/08/23 09/09/23 09/09/23 18:59 06:59 18:59 Intake Total 628 1658 368 Output Total 3430 1725 625 Balance -2802 -67 -257 Weight 93.8 kg Intake: IV 10 10 Invasive Line 2 10 10 Intake, IV Titration 440 600 Amount Levofloxacin 750Mg-D5w 150 Pmx 750 mg In Dextrose/ Water 1 150ml.bag @ 100 mls/hr IVPB Q48H [facility] Rx#: [id number] Sodium Chloride 0.9% 1, 450 000 ml @ 50 mls/hr IV . Q20H [facility]YDE Rx#:[id number] Sodium Chloride 0.9% 1, 440 000 ml @ 999 mls/hr IV . Q1H1M STA Rx#:[id number] Oral 178 1058 358 Output: Urine 3430 1725 625 Uretheral (Miner) 475 Other: Voiding Method Indwelling Catheter Urinal # Voids 1 - Exam GENERAL EXAM: Alert, weak 78-year-old male, on 4 L nasal cannula, in no distress feels great HEAD: Normocephalic. EYES: Normal reaction of pupils, equal size. NOSE: Clear with pink turbinates. THROAT: No erythema or exudates. NECK: No masses, no JVD. CHEST: No chest wall deformity. LUNGS: Minimal crackles at the bases no rhonchi no wheezes ses. CVS: S1 and S2 normal with no audible murmur, regular rhythm. ABDOMEN: No hepatosplenomegaly, normal bowel sounds, no guarding or rigidity. SKIN: No rashes CENTRAL NERVOUS SYSTEM: Alert oriented x 3 no gross focal deficit EXTREMITIES: Plus bipedal edema - Labs CBC & Chem 7: 09/09/23 06:51 09/09/23 06:51 Labs: Abnormal Lab Results - Last 24 Hours (Table) 09/08/23 09/09/23 09/09/23 Range/Units 20:24 06:04 06:51 WBC 3.0 L (3.8-10.6) k/uL RBC 2.85 L (4.30-5.90) m/uL Hgb 8.6 L (13.0-17.5) gm/dL Hct 28.4 L (39.0-53.0) % MCHC 30.2 L (31.0-37.0) g/dL RDW 18.5 H (11.5-15.5) % Lymphocytes # 0.7 L (1.0-4.8) k/uL Chloride (98-107) mmol/L BUN (9-20) mg/dL Creatinine (0.66-1.25) mg/dL Glucose (74-99) mg/dL POC Glucose (mg/dL) 135 H 130 H (70-110) mg/dL Calcium (8.4-10.2) mg/dL Procalcitonin (0.02-0.09) ng/mL 09/09/23 09/09/23 09/09/23 Range/Units 06:51 06:51 11:28 WBC (3.8-10.6) k/uL RBC (4.30-5.90) m/uL Hgb (13.0-17.5) gm/dL Hct (39.0-53.0) % MCHC (31.0-37.0) g/dL RDW (11.5-15.5) % Lymphocytes # (1.0-4.8) k/uL Chloride 110 H (98-107) mmol/L BUN 27 H (9-20) mg/dL Creatinine 1.44 H (0.66-1.25) mg/dL Glucose 130 H (74-99) mg/dL POC Glucose (mg/dL) 116 H (70-110) mg/dL Calcium 7.2 L (8.4-10.2) mg/dL Procalcitonin 3.30 H (0.02-0.09) ng/mL Microbiology - Last 24 Hours (Table) 09/07/23 23:55 Blood Culture - Preliminary Blood 09/07/23 23:40 Blood Culture - Preliminary Blood Assessment and Plan Assessment: Impression: Acute hypoxemic respiratory failure secondary to bilateral pleural effusions, possible underlying pneumonitis/pneumonia, congestive heart failure Generalized weakness secondary to hypotension and anemia Pancytopenia Small pericardial effusion Acute kidney injury suspect secondary to hypotension/dehydration Metastatic stage IV lung cancer non-small cell adenocarcinoma and some suspicion for small cell lung cancer based on tumor markers, genetic mutations. Completed palliative radiation to the sternum and left scapula. Completed chemotherapy of carboplatin/etoposide/Tecentriq. Currently on Braftovi and Mektovi. Discontinued earlier this week due to above symptoms. PET scan from May 2023 revealed left perihilar and left lower lung nodule with increased uptake concerning for primary malignancy with evidence of scattered metastatic disease throughout the osseous structures. History of mild intermittent chronic bronchial asthma Former smoker Hypertension Hyperlipidemia Obstructive sleep apnea History of depression Recommendation: Considering the improvement in the last 24 hours, would recommend that we continue the same treatment plan including: Continue antibiotics, however if procalcitonin especially with a procalcitonin level of 3.30 Continue diuretics Continue bronchodilators Will continue to follow Time with Patient: Less than 30
[2023-09-09 16:44] LABS: Glucose,Whole Blood 136 mg/dL (70-110)
[2023-09-09 20:05] LABS: Glucose,Whole Blood 120 mg/dL (70-110)
[2023-09-09] MEDS: MONTELUKAST 10 MG TAB PO SCH (20:05)
[2023-09-10 05:57] LABS: Glucose,Whole Blood 131 mg/dL (70-110)
[2023-09-10 07:04] LABS: Anisocytosis Slight; Basophils % (A) 0 %; Eosinophils % (A) 0 %; HCT 27.8 % (39.0-53.0); HGB 8.5 gm/dL (13.0-17.5); Hypochromasia Marked; Lymphocytes # (A) 0.6 k/uL (1.0-4.8); Lymphocytes % (A) 14 %; MCH 30.2 pg (25.0-35.0); MCHC 30.5 g/dL (31.0-37.0); MCV 99.2 fL (80.0-100.0); Macrocytosis Slight; Mean Platelet Volume 10.4; Monocytes # (A) 0.2 k/uL (0-1.0); Monocytes % (A) 4 %; Neutrophils # (A) 3.5 k/uL (1.3-7.7); Neutrophils % (A) 80 %; Platelet Count 159 k/uL (150-450); RBC 2.81 m/uL (4.30-5.90); RDW 18.9 % (11.5-15.5); WBC 4.4 k/uL (3.8-10.6)
[2023-09-10 07:16] LABS: African American GFR (CKD) 62 (>60 ml/min/1.73 sqM); Anion Gap 4 mmol/L; Blood Urea Nitrogen 28 mg/dL (9-20); Calcium 7.3 mg/dL (8.4-10.2); Carbon Dioxide 27 mmol/L (22-30); Chloride 109 mmol/L (98-107); Glucose 111 mg/dL (74-99); Non-African American GFR(CKD) 54 (>60 ml/min/1.73 sqM); Potassium 4.1 mmol/L (3.5-5.1); Sodium 140 mmol/L (137-145)
[2023-09-10] MEDS: FUROSEMIDE 40 MG TAB PO SCH (10:18)
--- NOTE | 2023-09-10 10:34 | P.PN ---
Subjective HISTORY OF PRESENT ILLNESS: This is a 78-year-old male with a past medical history significant for lung cancer with metastasis, CHF, hypertension, hyperlipidemia and idiopathic cardiomyopathy with an ejection fraction of 40% in 1999 and with recovered EF. Patient follows in the office with Dr. Rivera. We have been asked to see the patient in consultation for CHF. Patient examined at the bedside in the emergency room. Patient states he was sent in by his oncologist to the emergency room as he has not been feeling well. He reports having shortness of breath for the past few days. He currently denies any chest pain or pressure. Vital signs are stable. DIAGNOSTICS: - EKG reveals sinus mechanism with no signs of acute ischemia - Chest xray small to moderate left pleural effusion. Slight increase congestion and mid to lower lung infiltrates, most suggestive of edema and atelectasis. Superimposed infection should be clinically excluded. - CT of the brain: Negative for acute process - Venous Doppler: Negative for DVT bilaterally - Chest CTA: Small pericardial effusion, bilateral pleural effusions no large central pulmonary embolism - Laboratory data: WBC 2.9. Hemoglobin 8.2. Platelet count 137. D-dimer 0.44. Sodium 138. Potassium 4.0. BUN 31. Creatinine 1.55. Magnesium 1.8. Troponin negative x 1. proBNP 5480. - Current home cardiac medications include Lasix 40 mg daily, Zetia 10 mg daily, carvedilol 3.125 mg twice a day. - Most recent echocardiogram obtained in May 2023 revealed ejection fraction 55 to 60%, mild to moderate aortic stenosis, mild aortic regurgitation, moderate MR, mild TR - Cardiac catheterization history: September 1999 revealing normal coronary arteries - Patient underwent Lexiscan stress test in December 2022 which was abnormal with reversible anterior apical defect-on medical management 09/09/2023 Patient examined this morning. Patient is sitting up in the chair. Patient currently denies chest pain or pressure. He reports improvement in his shortness of breath. He continues to have lower extremity edema. He remains on IV Lasix. Echocardiogram completed revealing ejection fraction 55 to 60%, mild to moderate aortic stenosis, mild aortic regurgitation and small pericardial effusion. Chest x-ray performed yesterday evening revealed bibasilar infiltrates, correlate for pulmonary edema, small left pleural effusion. 09/10/2023 Patient examined this morning at bedside. Patient currently denies chest pain or pressure. He denies shortness of breath. He remains on IV diuretics. He is hoping to be discharged home today. PHYSICAL EXAM: VITAL SIGNS: Reviewed. GENERAL: Well-developed in no acute distress. HEENT: Head is normocephalic. Pupils are equal, round. Sclerae anicteric. Mucous membranes of the mouth are moist. Neck supple. No JVD or thyromegaly LUNGS: Respirations even and unlabored. Lungs diminished bilaterally HEART: Regular rate and rhythm. S1 and S2 heard. Systolic murmur noted. ABDOMEN: Soft. Nondistended. Nontender. EXTREMITIES: Normal range of motion. No clubbing or cyanosis. Peripheral pulses intact. 2+ bilateral lower extremity edema NEUROLOGIC: Awake and alert. Oriented x 3. ASSESSMENT: Shortness of breath Acute on chronic heart failure with preserved EF Small pericardial effusion Bilateral pleural effusions Mild to moderate aortic stenosis History of metastatic lung CA Abnormal Lexiscan stress test, December 2022, managed medically History of idiopathic cardiomyopathy with a EF of 40% in 1999 with recovered EF Hypertension Hyperlipidemia PLAN: Continue current cardiac medications Discontinue IV Lasix. Begin oral Lasix 40 mg twice a day Patient may be discharged home today from a cardiac standpoint Patient to follow-up postdischarge with Dr. Butts Nurse practitioner note has been reviewed by physician. Signing provider agrees with the documented findings, assessment, and plan of care documented by DELIVERY ENGINEER as a scribe. Objective - Vital Signs Vital signs: Vital Signs Temp 97.5 F L 09/10/23 08:19 Pulse 75 09/10/23 09:05 Resp 16 09/10/23 08:19 BP 103/46 09/10/23 08:19 Pulse Ox 96 09/10/23 08:58 FiO2 Intake & Output 09/09/23 09/10/23 09/10/23 18:59 06:59 18:59 Intake Total 608 20 128 Output Total 925 1275 Balance -317 20 -1147 Weight 92.6 kg Intake: IV 10 20 10 Invasive Line 2 10 20 10 Oral 598 118 Output: Urine 925 1275 Other: Voiding Method Urinal Urinal # Voids 1 - Labs CBC & Chem 7: 09/10/23 06:34 09/10/23 06:34 Labs: Abnormal Lab Results - Last 24 Hours (Table) 09/09/23 09/09/23 09/09/23 Range/Units 06:51 11:28 16:42 RBC (4.30-5.90) m/uL Hgb (13.0-17.5) gm/dL Hct (39.0-53.0) % MCHC (31.0-37.0) g/dL RDW (11.5-15.5) % Lymphocytes # (1.0-4.8) k/uL Chloride (98-107) mmol/L BUN (9-20) mg/dL Creatinine (0.66-1.25) mg/dL Glucose (74-99) mg/dL POC Glucose (mg/dL) 116 H 136 H (70-110) mg/dL Calcium (8.4-10.2) mg/dL Procalcitonin 3.30 H (0.02-0.09) ng/mL 09/09/23 09/10/23 09/10/23 Range/Units 20:04 05:55 06:34 RBC 2.81 L (4.30-5.90) m/uL Hgb 8.5 L (13.0-17.5) gm/dL Hct 27.8 L (39.0-53.0) % MCHC 30.5 L (31.0-37.0) g/dL RDW 18.9 H (11.5-15.5) % Lymphocytes # 0.6 L (1.0-4.8) k/uL Chloride (98-107) mmol/L BUN (9-20) mg/dL Creatinine (0.66-1.25) mg/dL Glucose (74-99) mg/dL POC Glucose (mg/dL) 120 H 131 H (70-110) mg/dL Calcium (8.4-10.2) mg/dL Procalcitonin (0.02-0.09) ng/mL 09/10/23 Range/Units 06:34 RBC (4.30-5.90) m/uL Hgb (13.0-17.5) gm/dL Hct (39.0-53.0) % MCHC (31.0-37.0) g/dL RDW (11.5-15.5) % Lymphocytes # (1.0-4.8) k/uL Chloride 109 H (98-107) mmol/L BUN 28 H (9-20) mg/dL Creatinine 1.26 H (0.66-1.25) mg/dL Glucose 111 H (74-99) mg/dL POC Glucose (mg/dL) (70-110) mg/dL Calcium 7.3 L (8.4-10.2) mg/dL Procalcitonin (0.02-0.09) ng/mL Microbiology - Last 24 Hours (Table) 09/07/23 23:55 Blood Culture - Preliminary Blood 09/07/23 23:40 Blood Culture - Preliminary Blood
[2023-09-10 11:32] LABS: Glucose,Whole Blood 124 mg/dL (70-110)
--- NOTE | 2023-09-10 11:35 | P.PN ---
Subjective Progress Note Date: 09/10/23 Principal diagnosis: Acute hypoxemic respiratory failure secondary to bilateral pleural effusions, possible underlying pneumonitis/pneumonia, and acute on chronic diastolic congestive heart failure This is a pleasant 78-year-old male patient with a history of hypertension, hype rlipidemia, mild intermittent chronic bronchial asthma, former smoker. 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 There was also some concern regarding small cell lung cancer based on tumor markers and gene mutations. MRI of the brain was negative for metastasis. He had completed radiation treatments to the sternum and left scapula. He had undergone chemotherapy with carboplatin/etoposide/Tecentriq. He is currently on Braftovi and Mektovi. Earlier this week he had developed low oxygen and low blood pressure, weakness, lower extremity edema, cough and congestion. He was seen by oncology who stopped the Braftovi and Mektovi and initiated him on Levaquin and the patient presented here yesterday for further evaluation. CT scan of the brain revealed no acute abnormalities. Doppler of the lower extremities revealed no evidence of DVT. CT angiogram ruled out central pulmonary embolism. There is small pericardial effusion. Bilateral pleural effusions. Air bronchograms with opacities in the bases. White count 2.9. Hemoglobin 8.2. Platelets 137. Sodium 138. Potassium 4.0. Bicarb 25. BUN 31. Creatinine 1.55. Legionella screen negative. proBNP 5480. Troponin negative. He is seen today in consultation in the emergency department. He is currently on 8 L high flow nasal cannula with O2 saturations in the mid 90s. He has been afebrile. Hemodynamically stable. He has been initiated on Levaquin, Solu-Medrol and albuterol. Echocardiogram pending. Patient was evaluated today on 09/09/2023, patient is feeling better, breathing easier,Remains on 4 L nasal cannula with O2 sats 97%. Chest x-ray yesterday clearly showed evidence of interstitial edema, underlying pneumonitis is not entirely ruled out, echocardiogram showed normal LV function but the patient has mild to moderate aortic stenosis with peak gradient of 41 mmHg and a mean g radient of 22, nonetheless clinically the patient is feeling better and breathing easier. Reevaluate today on 09/10/2023,On 4 L nasal cannula O2 saturation 96%, patient feels much better today compared to how he felt on admission. Hardly any pulmonary symptoms today. Laboratory reviewed WBC count is 4.4 hemoglobin 8.5 basic metabolic profile is normal renal profile showed a BUN of 28 creatinine 1.26 Objective - Vital Signs Vital signs: Vital Signs Temp 97.5 F L 09/10/23 08:19 Pulse 75 09/10/23 09:05 Resp 16 09/10/23 08:19 BP 103/46 09/10/23 08:19 Pulse Ox 96 09/10/23 08:58 FiO2 Intake & Output 09/09/23 09/10/23 09/10/23 18:59 06:59 18:59 Intake Total 608 20 128 Output Total 925 1275 Balance -317 20 -1147 Weight 92.6 kg Intake: IV 10 20 10 Invasive Line 2 10 20 10 Oral 598 118 Output: Urine 925 1275 Other: Voiding Method Urinal Urinal Urinal # Voids 1 - Exam GENERAL EXAM: Alert, weak 78-year-old male, on 4 L nasal cannula, in no distress feels great HEAD: Normocephalic. EYES: Normal reaction of pupils, equal size. NOSE: Clear with pink turbinates. THROAT: No erythema or exudates. NECK: No masses, no JVD. CHEST: No chest wall deformity. LUNGS: Clear bilaterally no crackles rhonchi or wheezes CVS: S1 and S2 normal with no audible murmur, regular rhythm. ABDOMEN: No hepatosplenomegaly, normal bowel sounds, no guarding or rigidity. SKIN: No rashes CENTRAL NERVOUS SYSTEM: Alert oriented x 3 no gross focal deficit EXTREMITIES: 1+ bipedal edema - Labs CBC & Chem 7: 09/10/23 06:34 09/10/23 06:34 Labs: Abnormal Lab Results - Last 24 Hours (Table) 09/09/23 09/09/23 09/09/23 Range/Units 06:51 16:42 20:04 RBC (4.30-5.90) m/uL Hgb (13.0-17.5) gm/dL Hct (39.0-53.0) % MCHC (31.0-37.0) g/dL RDW (11.5-15.5) % Lymphocytes # (1.0-4.8) k/uL Chloride (98-107) mmol/L BUN (9-20) mg/dL Creatinine (0.66-1.25) mg/dL Glucose (74-99) mg/dL POC Glucose (mg/dL) 136 H 120 H (70-110) mg/dL Calcium (8.4-10.2) mg/dL Procalcitonin 3.30 H (0.02-0.09) ng/mL 09/10/23 09/10/23 09/10/23 Range/Units 05:55 06:34 06:34 RBC 2.81 L (4.30-5.90) m/uL Hgb 8.5 L (13.0-17.5) gm/dL Hct 27.8 L (39.0-53.0) % MCHC 30.5 L (31.0-37.0) g/dL RDW 18.9 H (11.5-15.5) % Lymphocytes # 0.6 L (1.0-4.8) k/uL Chloride 109 H (98-107) mmol/L BUN 28 H (9-20) mg/dL Creatinine 1.26 H (0.66-1.25) mg/dL Glucose 111 H (74-99) mg/dL POC Glucose (mg/dL) 131 H (70-110) mg/dL Calcium 7.3 L (8.4-10.2) mg/dL Procalcitonin (0.02-0.09) ng/mL Microbiology - Last 24 Hours (Table) 09/07/23 23:55 Blood Culture - Preliminary Blood 09/07/23 23:40 Blood Culture - Preliminary Blood Assessment and Plan Assessment: Impression: Acute hypoxemic respiratory failure secondary to bilateral pleural effusions, possible underlying pneumonitis/pneumonia, congestive heart failure Generalized weakness secondary to hypotension and anemia Pancytopenia Small pericardial effusion Acute kidney injury suspect secondary to hypotension/dehydration Metastatic stage IV lung cancer non-small cell adenocarcinoma and some suspicion for small cell lung cancer based on tumor markers, genetic mutations. Completed palliative radiation to the sternum and left scapula. Completed chemotherapy of carboplatin/etoposide/Tecentriq. Currently on Braftovi and Mektovi. Discontinued earlier this week due to above symptoms. PET scan from May 2023 revealed left perihilar and left lower lung nodule with increased uptake concerning for primary malignancy with evidence of scattered metastatic disease throughout the osseous structures. History of mild intermittent chronic bronchial asthma Former smoker Hypertension Hyperlipidemia Obstructive sleep apnea History of depression Recommendation: continue the same treatment plan including: Antibiotic, bronchodilators, diuretics Continue antibiotics, procalcitonin level is elevated 3.30 Continue diuretics Continue bronchodilators Will continue to follow Time with Patient: Less than 30
[2023-09-10 12:44] VITALS: RESP 18
[2023-09-10 15:24] VITALS: TEMP 98
[2023-09-10] MEDS: predniSONE 10 MG TAB PO SCH (15:26)
[2023-09-10] MEDS ORDERED: methylPREDNISolone SOD SUCCI 125 MG/2 ML VIAL IV SCH (16:00)
[2023-09-10 16:27] LABS: Glucose,Whole Blood 158 mg/dL (70-110)
[2023-09-10 17:14] VITALS: BP 126/54
[2023-09-10 17:47] VITALS: PULSE 80
== END 2023-09-10 17:50 | disposition home or self-care (01) | DRG 291 ==
LOC: EC 19:47 → 2SICU 22:29 → 3SCARD 09-08 08:58
PROVIDERS: ADMIT Hospitalist; ATTEND Hospitalist
DX: I11.0 Hypertensive heart disease with heart failure (principal); I50.33 Acute on chronic diastolic (congestive) heart failure; J96.01 Acute respiratory failure with hypoxia; I31.39 Other pericardial effusion (noninflammatory); D61.818 Other pancytopenia; N17.9 Acute kidney failure, unspecified; C79.9 Secondary malignant neoplasm of unspecified site; C79.51 Secondary malignant neoplasm of bone; C34.90 Malignant neoplasm of unspecified part of unspecified bronchus or lung; C78.7 Secondary malignant neoplasm of liver and intrahepatic bile duct; I42.8 Other cardiomyopathies; E86.0 Dehydration; I95.9 Hypotension, unspecified; J44.89 Other specified chronic obstructive pulmonary disease; F32.A Depression, unspecified; I08.3 Combined rheumatic disorders of mitral, aortic and tricuspid valves; E78.5 Hyperlipidemia, unspecified; M54.2 Cervicalgia; J98.4 Other disorders of lung; G47.33 Obstructive sleep apnea (adult) (pediatric); Z85.118 Personal history of other malignant neoplasm of bronchus and lung; Z92.3 Personal history of irradiation; Z92.21 Personal history of antineoplastic chemotherapy; Z87.891 Personal history of nicotine dependence; Z79.899 Other long term (current) drug therapy
CPT/HCPCS: 36415; 51702; 70470; 71045; 71275; 80048; 80053; 83605; 83735; 83880; 84100; 84145; 84484; 85025; 85379; 85610; 85730; 87040; 87449; 93005; 93308; 93970; 94640; 94760; 96361; 96365; 96366; 96375; 96376; 99291

== ENCOUNTER → 2023-09-22 | Outpatient (CLI) | payer MEDICARE ==
--- NOTE | 2023-09-25 11:40 | PE ---
EXAMINATION TYPE: PET CT fusion skull to thigh DATE OF EXAM: 09/22/2023 CLINICAL INDICATION:Male, 78 years old with history of C34.32 LUNG CANCER; TECHNIQUE: Following the intravenous administration of 8.36 mCi of F-18 FDG, whole body images are performed from the skull base to the midthigh. Images are reviewed on the computer in the coronal, a xial, and sagittal planes. Reconstructed rotating images are created on independent workstation and reviewed on the computer. A non-contrast CT is performed in conjunction with the PET scan. Glucose level 86 mg/dL CT DLP: 721 mGycm, Automated exposure control for dose reduction was used. COMPARISON: CT 09/17/2023, PET/CT 06/24/2023, MRI: None FINDINGS: Mediastinal SUV mean is 2.0. Hepatic parenchyma SUV mean is 2.5. SKULL BASE AND NECK: * Left occiput abnormal lucent area max SUV 8.6 measuring 18 x [address] imaging which is similar to prior. max SUV 7.2, previously 8.6 . CHEST, MEDIASTINUM, AND HILAR REGION: * Left perihilar abnormal uptake max SUV 6.4, previously 7.2 extending from the pulmonary hilum towa rds the periphery. * Right pulmonary hilum nodule Max SUV 5.5, previously 7.2. * Peripheral nodule in the medial left lower lung max SUV 9.6, previously 10.1 measuring 22 mm, prev iously 24 mm. Findings likely due to differences in measuring technique and slice selection. * Pulmonary nodule in the aorta measuring 10 mm on prior ABDOMEN AND PELVIS: No suspicious radiotracer activity. MUSCULOSKELETAL STRUCTURES: Scattered areas of abnormal uptake within osseous structures. * Uptake around the odontoid process max SUV 7.9, previously 5.5. * T1 vertebral body max SUV 9.2, previously 9.0 * Left rib 2 Max SUV 3.6, previously 7.4 * T2 right transverse process max 3.3, previously 3.8. * Anterior right rib 3 max SUV 6.0, previously 5.3 * Inferior sternum max SUV 3.9, previously 4.7 with destructive soft tissue mass not changed from pr ior measuring 3.6 x 2.31 measuring similarly. * Left acromion max SUV 4.6, previously 5.1 with osseous destructive changes. * T11 vertebral body max SUV 5.[address]: New small left pleural effusion. Bilaterally aphakia. Atherosclerosis of the arterial vascu lature. Atherosclerosis of the coronary arteries. Bilateral hip arthroplasty changes. Bilateral non-F DG avid probable renal cortical cysts. IMPRESSION: 1. Minimal response to therapy. 2. Left lower lobe pulmonary nodule not significantly changed from prior in both FDG uptake and in s ize given differences in technique. 3. Decreasing FDG activity of the left perihilar FDG activity as well as left pulmonary hilum lymph node. 4. FDG activity within the osseous structures is mixed response with some decrease in FDG activity o thers increasing and others slightly increasing. 5. New small left pleural effusion.
== END | disposition home or self-care (01) ==
LOC: RADPETMAIN 09:27
PROVIDERS: ATTEND Internal Medicine
DX: C34.32 Malignant neoplasm of lower lobe, left bronchus or lung (principal); R91.1 Solitary pulmonary nodule; J90 Pleural effusion, not elsewhere classified
CPT/HCPCS: 78815; A9552

== ENCOUNTER 2023-09-24 19:05 | Inpatient (IN) | payer MEDICARE ==
[2023-09-24] MEDS: SODIUM CHLORIDE 0.9% 1,000 ML IV ONE (19:45)
[2023-09-24] MEDS ORDERED: VANCOMYCIN IV PER PHARMACY 1 EACH MISC MISCELLANE PRN (20:03)
[2023-09-24] MEDS ORDERED: AMPICILLIN 2,000 MG in EMPTY SYRINGE 1 SYR IV ONE (20:06)
--- NOTE | 2023-09-24 20:10 | ED ---
General Adult HPI - General Chief complaint: Weakness Stated complaint: HTN Time Seen by Provider: 09/24/23 19:34 Source: EMS Mode of arrival: EMS - History of Present Illness Initial comments: Patient is a 78-year-old gentleman past medical history of hyperlipidemia hypertension, pneumonia, sleep apnea, cardiomyopathy, lung cancer, patient's family reports that he presents today for similar symptoms to when he presented on 09/06. Yesterday patient slept more than usual and slept later than usual today. Every time he tried to get up he was too weak to get up. They took his blood pressure at home and his blood pressure was 50/30 so they called EMS. Patient does endorse generalized neck pain but states this has been ongoing for months. Denies chest pain, difficulty in breathing, abdominal pain, nausea, vomiting, diarrhea, dysuria, fevers or chills. Does endorse a cough productive of thick sputum and small streaks of blood. - Related Data Home Medications Medication Instructions Recorded Confirmed Pramipexole Di-HCl [Mirapex] 1.5 mg PO BID 01/03/14 09/08/23 allopurinoL [Zyloprim] 100 mg PO HS 01/03/14 09/08/23 Albuterol Sulfate [Albuterol 1 - 2 puff PO RT-Q4H PRN 04/15/23 09/08/23 Sulfate Hfa] Ergocalciferol (Vitamin D2) 1,250 mcg PO Q14D 04/15/23 09/08/23 [Drisdol (50,000 Iu)] Ferrous Sulfate [Iron (65 MG 975 mg PO PC-LUNCH 04/15/23 09/08/23 Elemental)] Fluticasone Propion/Salmeterol 1 puff INHALATION RT-BID 04/15/23 09/08/23 [Advair 250-50 Diskus] Montelukast [Singulair] 10 mg PO HS 04/15/23 09/08/23 Ondansetron Odt [Zofran ODT] 8 mg PO DAILY PRN 04/15/23 09/08/23 Tamsulosin [Flomax] 0.4 mg PO DAILY 04/15/23 09/08/23 carvediloL [Coreg] 3.125 mg PO BID 04/15/23 09/08/23 Binimetinib [Mektovi] 30 mg PO BID 06/08/23 09/08/23 Encorafenib [Braftovi] 300 mg PO DAILY 06/08/23 09/08/23 Albuterol Nebulized [Ventolin 2.5 mg INHALATION RT-BID 09/08/23 09/08/23 Nebulized] Benralizumab [Fasenra] 30 mg SQ Q42D 09/08/23 09/08/23 Calcium Carbonate [Calcium] 600 mg PO BID@1200,209909/08/23 09/08/23 Cholecalciferol [Vitamin D3 (10 10 mcg PO BID@1200,2100 09/08/23 09/08/23 Mcg = 400 Iu)] Docusate Sodium 250 mg PO DAILY 09/08/23 09/08/23 Ezetimibe [Zetia] 10 mg PO DAILY 09/08/23 09/08/23 Levofloxacin [Levaquin] 750 mg PO DAILY 09/08/23 09/08/23 Omeprazole [PriLOSEC] 40 mg PO DAILY 09/08/23 09/08/23 Zoledronic Acid [Zometa] 4 mg IV Q90D 09/08/23 09/08/23 Previous Rx's Medication Instructions Recorded Furosemide [Lasix] 40 mg PO BID@0900,1600 30 Days #60 09/10/23 tab predniSONE See Taper PO DAILY #15 tab 09/10/23 Allergies Allergy/AdvReac Type Severity Reaction Status Date / Time No Known Allergies Allergy Verified 09/08/23 09:55 Review of Systems ROS Statement: Those systems with pertinent positive or pertinent negative responses have been documented in the HPI. ROS Other: All systems not noted in ROS Statement are negative. Past Medical History Past Medical History: No Reported History, Asthma, Cancer, GERD/Reflux, Hyperlipidemia, Hypertension, Pneumonia, Prostate Disorder, Sleep Apnea/CPAP/BIPAP Additional Past Medical History / Comment(s): cardiomyopathy, hiatal hernia, anemia, lung cancer diagnosed 12/29/2022 (last chemo finished 04/07/2023) History of Any Multi-Drug Resistant Organisms: None Reported Past Surgical History: Hernia Repair, Joint Replacement, Orthopedic Surgery Additional Past Surgical History / Comment(s): colonoscopy,EGD, Antonina hip replacments, antonina fx ankles, screws removed from rt ankle Past Anesthesia/Blood Transfusion Reactions: No Reported Reaction Past Psychological History: Depression Smoking Status: Former smoker Past Alcohol Use History: Occasional Past Drug Use History: None Reported General Exam - General Exam Comments Initial Comments: PE: CONSTITUTIONAL: No apparent distress, chronically ill-appearing, nontoxic SKIN: Warm, dry, no jaundice, hives or petechiae EYES: Pupils are equally round, extraocular movements intact without nystagmus, clear conjunctiva, non-icteric sclera HENT: Normocephalic, atraumatic, dry mucus membranes, oropharynx clear without exudates NECK: , Full range of motion, normal appearance, no midline tenderness to palpation, paraspinal muscle tenderness noted, no meningeal signs/ negative kernig's and brudzinskis PULMONARY: Crackles and rhonchi in the bilateral lung garcia, normal excursion, no accessory muscle use, no stridor or wheezing CARDIOVASCULAR: Regular rate, rhythm, normal S1 and S2. No appreciated murmurs, rubs or gallops. Strong radial pulses with intact distal perfusion. No lower extremity edema GASTROINTESTINAL: Soft, non-tender, non-distended, no palpable masses, no rebound or guarding. No hepatosplenomegaly MUSCULOSKELETAL: Extremities have no gross deformity, no edema, redness, or swelling. No calf swelling ot TTP. NEUROLOGIC:_a/o x 3, GCS 15, normal mentation and speech. Moves all extremities x 4 without motor or sensory deficit PSYCHIATRIC:_normal mood and affect, thought process is clear and linear Course Vital Signs 09/24/23 09/24/23 09/24/23 19:11 19:18 20:00 Temperature 98.3 F 98.3 F Pulse Rate 94 92 76 Respiratory 19 18 16 Rate Blood Pressure 77/46 83/54 79/48 O2 Sat by Pulse 91 L 94 L 96 Oximetry 09/24/23 09/24/23 09/24/23 20:15 20:30 20:45 Temperature Pulse Rate 78 76 79 Respiratory 17 17 16 Rate Blood Pressure 82/47 94/60 80/58 O2 Sat by Pulse 96 97 99 Oximetry 09/24/23 09/24/23 09/24/23 21:00 21:15 21:30 Temperature Pulse Rate 84 80 78 Respiratory 17 14 15 Rate Blood Pressure 89/53 89/53 93/46 O2 Sat by Pulse 97 98 98 Oximetry 09/24/23 09/24/23 09/24/23 21:45 22:00 22:15 Temperature Pulse Rate 82 64 78 Respiratory 12 14 16 Rate Blood Pressure 107/57 107/57 100/59 O2 Sat by Pulse 98 98 98 Oximetry 09/24/23 09/24/23 09/24/23 22:30 22:45 23:00 Temperature Pulse Rate 62 57 L 67 Respiratory 19 12 12 Rate Blood Pressure 101/56 103/60 107/57 O2 Sat by Pulse 98 97 94 L Oximetry 09/24/23 09/24/23 09/24/23 23:15 23:30 23:45 Temperature Pulse Rate 74 66 81 Respiratory 15 14 12 Rate Blood Pressure 118/57 113/55 105/63 O2 Sat by Pulse 98 95 97 Oximetry - Reevaluation(s) Reevaluation #1: 09/24/23 21:50 After 1800 cc IV fluid, blood pressure 107/57, patient with MAP of 80, does appear clinically dry, and fluid responsive will continue with the full 30 cc/kg bolus EKG Findings - EKG Comments: EKG Findings:: Sinus rhythm with occasional PVCs, rate 73 bpm, normal intervals, normal axis. compared to EKG performed on 09/07/2023 largely unchanged from prior Medical Decision Making - Medical Decision Making Was pt. sent in by a medical professional or institution (, PA, FIRE DEPARTMENT BATTALION CHIEF, urgent care, hospital, or fdc...) When possible be specific @ -No Did you speak to anyone other than the patient for history (EMS, parent, family, police, friend...)? What history was obtained from this source @ -Spoke with patient's , son and [id number] at bedside Did you review nursing and triage notes (agree or disagree)? Why? @ -I reviewed and agree with nursing and triage notes Were old charts reviewed (outside hosp., previous admission, EMS record, old EKG, old radiological studies, urgent care reports/EKG's, fdc records)? Report findings @ -Reviewed progress note from 09/10/2023, patient's most recent admission, patient was admitted for acute hypoxic respiratory failure due to with bilateral pleural effusions, possible underlying pneumonitis, pneumonia and acute on chronic diastolic congestive heart failure Differential Diagnosis (chest pain, altered mental status, abdominal pain women, abdominal pain men, vaginal bleeding, weakness, fever, dyspnea, syncope, headache, dizziness, GI bleed, back pain, seizure, CVA, palpatations, mental health, musculoskeletal)? @ -Differential Weakness: Hypoglycemia, shock, dehydration, malnutrition, sepsis, hyponatremia, anemia, infection, ACS , PE adverse medicine reaction this is not meant to be an all- inclusive list. EKG interpreted by me (3pts min.). @ -As above X-rays interpreted by me (1pt min.). @ -Chest x-ray reviewed, read by radiologist as left-sided pleural effusion,Susp ect atelectasis or consolidation in the left lung base, I reviewed chest x-ray and agree with radiology interpretation, left lower lobe fusion CT interpreted by me (1pt min.). @ -CT brain reviewed, showed no acute process, I reviewed imaging and I agree with radiologist interpretation, I see no evidence of abscess, hemorrhage, mass or other acute process U/S interpreted by me (1pt. min.). @ -None done What testing was considered but not performed or refused? (CT, X-rays, U/S, labs)? Why? @ -None What meds were considered but not given or refused? Why? @ -None Did you discuss the management of the patient with other professionals (professionals i.e. , PA, FIRE DEPARTMENT BATTALION CHIEF, lab, RT, psych nurse, protective services social worker, setup technician, teacher, senior vice president and chief information officer, case checker)? Give summary @ -No Was smoking cessation discussed for >3mins.? @ -No Was critical care preformed (if so, how long)? @ -Yes, 35 minutes spent examining patient, obtaining history from patient and family, chart review, ordering and interpreting labs and imaging, reassessment of patient Were there social determinants of health that impacted care today? How? (Homelessness, low income, unemployed, alcoholism, drug addiction, transportation, low edu. Level, literacy, decrease access to med. care, penitentiary, rehab)? @ -No Was there de-escalation of care discussed even if they declined (Discuss DNR or withdrawal of care, Hospice)? DNR status @ -No What co-morbidities impacted this encounter? (DM, HTN, Smoking, COPD, CAD, Cancer, CVA, ARF, Chemo, Hep., AIDS, mental health diagnosis, sleep apnea, morbid obesity)? @ -Cancer Was patient admitted / discharged? Hospital course, mention meds given and route, prescriptions, significant lab abnormalities, going to OR and other pertinent info. @ -Hospital course Patient is a 78-year-old gentleman past medical history of metastatic lung cancer with metastases to the bones, liver, CHF recent admission for pneumonia and CHF presenting today for weakness and hypotension. On my assessment patient is hypotensive with blood pressure 88/53. He is awake and alert, ill-appearing but nontoxic. Family at bedside. Physical exam significant for rhonchi and rales in the bilateral lung garcia, and accessory muscle use. No lower extremity edema. Borderline tachycardic, heart rate as high as 100. No lower extremity edema. Dry Mucous membranes. No focal neurologic deficits. Given patient's recent hospitalization suspect source of infection would be hospital- acquired pneumonia however did consider meningitis with patient's neck pain, so initially rocephin, vancomycin and ampicillin ordered however on further consideration and evaluation patient has source of sepsis, pleural effusion, potentially PNA, on CXR, negative kernig's and brudzinski's sign, is alert and nontoxic and neck pain has been ongoing for months and is not a new issue. Full 30 cc/kg bolus to be given, 2700 cc, as patient fluid responsive after initial bolus, appears clinically hypovolemic. Hemoglobin 9.8appears to be baseline for patient, on 09/10/2023 was 8.5 D-dimer 0.95, patient does have an KISHORE with creatinine 1.58 and GFR of 41 previously on 09/10/2023 creatinine was 1.26 GFR of 41 on 09/10/2023 was 54 troponin 0.101 I suspect this is secondary to demand ischemia due to patient's hypotension, BNP 6240. I reevaluated patient, after 1800 cc of IV fluids blood pressure 107/57 MAP of 80, patient does appear to be fluid responsive and still appears clinically dry we will continue with fluid resuscitation for full 30 cc/kg bolus. Blood pressure stabilized. Patient discussed with DORYS Lennon, kindly accepts for admission. Of note, patient given 1 liter LR, 1500 NS, additional NS fluid bolus 200 ml to complete full 2700 was ordered as "200 ml/hr" to only be given for 1 hour. Did discuss with RABIA Bro, to discontinue fluids after last 200 cc given to complete full 2700 cc. Additional fluids discontinued so as to not cause unnecessary volume overload. Undiagnosed new problem with uncertain prognosis? @ -Yes Drug Therapy requiring intensive monitoring for toxicity (Heparin, Nitro, Insulin, Cardizem)? @ -No Were any procedures done? @ -No Diagnosis/symptom? @ -Sepsis, pneumonia, hypotension Acute, or Chronic, or Acute on Chronic? @ -Acute Uncomplicated (without systemic symptoms) or Complicated (systemic symptoms)? @ -Complicated Side effects of treatment? @ -No Exacerbation, Progression, or Severe Exacerbation? @ -No Poses a threat to life or bodily function? How? (Chest pain, [place], [place], pneumonia, PE, COPD, DKA, ARF, appy, cholecystitis, CVA, Diverticulitis, Homicidal, Suicidal, threat to staff... and all critical care pts) @ -Yes, if sepsis and/or hypotension were allowed to go untreated patient would have decreased in order perfusion and ultimately organ failure and . - Lab Data Result diagrams: 09/24/23 20:12 09/24/23 20:12 Lab Results 09/24/23 09/24/23 09/24/23 Range/Units 20:12 20:12 20:12 WBC 6.4 (3.8-10.6) k/uL RBC 3.16 L (4.30-5.90) m/uL Hgb 9.8 L (13.0-17.5) gm/dL Hct 30.6 L (39.0-53.0) % MCV 96.9 (80.0-100.0) fL MCH 30.9 (25.0-35.0) pg MCHC 31.9 (31.0-37.0) g/dL RDW 17.3 H (11.5-15.5) % Plt Count 156 (150-450) k/uL MPV 8.5 Neutrophils % 70 % Lymphocytes % 18 % Monocytes % 8 % Eosinophils % 2 % Basophils % 0 % Neutrophils # 4.5 (1.3-7.7) k/uL Lymphocytes # 1.2 (1.0-4.8) k/uL Monocytes # 0.5 (0-1.0) k/uL Eosinophils # 0.2 (0-0.7) k/uL Basophils # 0.0 (0-0.2) k/uL Hypochromasia Moderate Anisocytosis Slight Macrocytosis Slight PT 11.5 (10.0-12.5) sec INR 1.1 (<1.2) APTT 27.2 (22.0-30.0) sec D-Dimer 0.95 H (<0.60) mg/L FEU Sodium 135 L (137-145) mmol/L Potassium 4.0 (3.5-5.1) mmol/L Chloride 100 (98-107) mmol/L Carbon Dioxide 30 (22-30) mmol/L Anion Gap 5 mmol/L BUN 17 (9-20) mg/dL Creatinine 1.58 H (0.66-1.25) mg/dL Est GFR (CKD-EPI)AfAm 48 (>60 ml/min/1.73 sqM) Est GFR (CKD-EPI)NonAf 41 (>60 ml/min/1.73 sqM) Glucose 87 (74-99) mg/dL Plasma Lactic Acid Ryan (0.7-2.0) mmol/L Calcium 7.8 L (8.4-10.2) mg/dL Total Bilirubin 0.8 (0.2-1.3) mg/dL AST 21 (17-59) U/L ALT 9 (4-49) U/L Alkaline Phosphatase 92 (38-126) U/L Troponin I (0.000-0.034) ng/mL NT-Pro-B Natriuret Pep 6240 pg/mL Total Protein 5.9 L (6.3-8.2) g/dL Albumin 2.9 L (3.5-5.0) g/dL Influenza Type A (PCR) (Not Detectd) Influenza Type B (PCR) (Not Detectd) RSV (PCR) (Not Detectd) SARS-CoV-2 (PCR) (Not Detectd) 09/24/23 09/24/23 09/24/23 Range/Units 20:12 20:12 20:29 WBC (3.8-10.6) k/uL RBC (4.30-5.90) m/uL Hgb (13.0-17.5) gm/dL Hct (39.0-53.0) % MCV (80.0-100.0) fL MCH (25.0-35.0) pg MCHC (31.0-37.0) g/dL RDW (11.5-15.5) % Plt Count (150-450) k/uL MPV Neutrophils % % Lymphocytes % % Monocytes % % Eosinophils % % Basophils % % Neutrophils # (1.3-7.7) k/uL Lymphocytes # (1.0-4.8) k/uL Monocytes # (0-1.0) k/uL Eosinophils # (0-0.7) k/uL Basophils # (0-0.2) k/uL Hypochromasia Anisocytosis Macrocytosis PT (10.0-12.5) sec INR (<1.2) APTT (22.0-30.0) sec D-Dimer (<0.60) mg/L FEU Sodium (137-145) mmol/L Potassium (3.5-5.1) mmol/L Chloride (98-107) mmol/L Carbon Dioxide (22-30) mmol/L Anion Gap mmol/L BUN (9-20) mg/dL Creatinine (0.66-1.25) mg/dL Est GFR (CKD-EPI)AfAm (>60 ml/min/1.73 sqM) Est GFR (CKD-EPI)NonAf (>60 ml/min/1.73 sqM) Glucose (74-99) mg/dL Plasma Lactic Acid Ryan 0.9 (0.7-2.0) mmol/L Calcium (8.4-10.2) mg/dL Total Bilirubin (0.2-1.3) mg/dL AST (17-59) U/L ALT (4-49) U/L Alkaline Phosphatase (38-126) U/L Troponin I 0.101 H* (0.000-0.034) ng/mL NT-Pro-B Natriuret Pep pg/mL Total Protein (6.3-8.2) g/dL Albumin (3.5-5.0) g/dL Influenza Type A (PCR) Not Detected (Not Detectd) Influenza Type B (PCR) Not Detected (Not Detectd) RSV (PCR) Not Detected (Not Detectd) SARS-CoV-2 (PCR) Not Detected (Not Detectd) 09/25/23 Range/Units 00:05 WBC (3.8-10.6) k/uL RBC (4.30-5.90) m/uL Hgb (13.0-17.5) gm/dL Hct (39.0-53.0) % MCV (80.0-100.0) fL MCH (25.0-35.0) pg MCHC (31.0-37.0) g/dL RDW (11.5-15.5) % Plt Count (150-450) k/uL MPV Neutrophils % % Lymphocytes % % Monocytes % % Eosinophils % % Basophils % % Neutrophils # (1.3-7.7) k/uL Lymphocytes # (1.0-4.8) k/uL Monocytes # (0-1.0) k/uL Eosinophils # (0-0.7) k/uL Basophils # (0-0.2) k/uL Hypochromasia Anisocytosis Macrocytosis PT (10.0-12.5) sec INR (<1.2) APTT (22.0-30.0) sec D-Dimer (<0.60) mg/L FEU Sodium (137-145) mmol/L Potassium (3.5-5.1) mmol/L Chloride (98-107) mmol/L Carbon Dioxide (22-30) mmol/L Anion Gap mmol/L BUN (9-20) mg/dL Creatinine (0.66-1.25) mg/dL Est GFR (CKD-EPI)AfAm (>60 ml/min/1.73 sqM) Est GFR (CKD-EPI)NonAf (>60 ml/min/1.73 sqM) Glucose (74-99) mg/dL Plasma Lactic Acid Ryan (0.7-2.0) mmol/L Calcium (8.4-10.2) mg/dL Total Bilirubin (0.2-1.3) mg/dL AST (17-59) U/L ALT (4-49) U/L Alkaline Phosphatase (38-126) U/L Troponin I 0.066 H* (0.000-0.034) ng/mL NT-Pro-B Natriuret Pep pg/mL Total Protein (6.3-8.2) g/dL Albumin (3.5-5.0) g/dL Influenza Type A (PCR) (Not Detectd) Influenza Type B (PCR) (Not Detectd) RSV (PCR) (Not Detectd) SARS-CoV-2 (PCR) (Not Detectd) Disposition Clinical Impression: Sepsis, Hypotension, Pleural effusion, left Disposition: ADMITTED IP TO THIS HOSP Condition: Stable Time of Disposition: 23:50
[2023-09-24] MEDS ORDERED: AMPICILLIN IVPB STA (20:12)
[2023-09-24] MEDS ORDERED: SODIUM CHLORIDE 0.9% IVPB STA (20:12)
[2023-09-24] MEDS: LACTATED RINGERS 500 ML IV SCH (20:44)
--- NOTE | 2023-09-24 20:48 | XR ---
EXAMINATION TYPE: XR chest 2V DATE OF EXAM: 09/24/2023 8:34 PM CLINICAL INDICATION:Male, 78 years old with history of Fever; [facility] COMPARISON: Chest radiographs from 09/08/[address] 09/08/2023. TECHNIQUE: XR chest 2V Frontal and lateral views of the chest. FINDINGS: Hiatal hernia suspected. Lungs/Pleura: No pneumothorax. Focal atelectasis or consolidation in the left base moderate small l eft pleural effusion Pulmonary vascularity: Unremarkable. Heart/mediastinum: Cardiomediastinal silhouette is unremarkable. Musculoskeletal: No acute osseous pathology. Other findings: None Lines/Tubes: IMPRESSION: Left pleural effusion. Suspect some atelectasis or consolidation in the left base. Hiatal hernia
[2023-09-24 20:53] LABS: Anisocytosis Slight; Basophils % (A) 0 %; Eosinophils # (A) 0.2 k/uL (0-0.7); Eosinophils % (A) 2 %; HCT 30.6 % (39.0-53.0); HGB 9.8 gm/dL (13.0-17.5); Hypochromasia Moderate; Lymphocytes # (A) 1.2 k/uL (1.0-4.8); Lymphocytes % (A) 18 %; MCH 30.9 pg (25.0-35.0); MCHC 31.9 g/dL (31.0-37.0); MCV 96.9 fL (80.0-100.0); Macrocytosis Slight; Mean Platelet Volume 8.5; Monocytes # (A) 0.5 k/uL (0-1.0); Monocytes % (A) 8 %; Neutrophils # (A) 4.5 k/uL (1.3-7.7); Neutrophils % (A) 70 %; Platelet Count 156 k/uL (150-450); RBC 3.16 m/uL (4.30-5.90); RDW 17.3 % (11.5-15.5); WBC 6.4 k/uL (3.8-10.6)
[2023-09-24] MEDS: AMPICILLIN 2,000 MG in SODIUM CHLORIDE 0.9% 100 ML IVPB ONE (20:53)
[2023-09-24] MEDS: LACTATED RINGERS 1,000 ML IV ONE (20:54)
[2023-09-24 21:12] LABS: ALT 9 U/L (4-49); AST 21 U/L (17-59); African American GFR (CKD) 48 (>60 ml/min/1.73 sqM); Albumin 2.9 g/dL (3.5-5.0); Alkaline Phosphatase 92 U/L (38-126); Anion Gap 5 mmol/L; Blood Urea Nitrogen 17 mg/dL (9-20); Calcium 7.8 mg/dL (8.4-10.2); Carbon Dioxide 30 mmol/L (22-30); Chloride 100 mmol/L (98-107); Glucose 87 mg/dL (74-99); Non-African American GFR(CKD) 41 (>60 ml/min/1.73 sqM); Sodium 135 mmol/L (137-145); Total Bilirubin 0.8 mg/dL (0.2-1.3); Total Protein 5.9 g/dL (6.3-8.2)
[2023-09-24 21:14] LABS: INR 1.1 (<1.2); Partial Thromboplastin Time 27.2 sec (22.0-30.0); Prothrombin Time 11.5 sec (10.0-12.5)
[2023-09-24 21:20] LABS: NT-Pro-B-Type Natriuretic Pept 6240 pg/mL
[2023-09-24] MEDS: SODIUM CHLORIDE 0.9% 500 ML 500 ML IV STA (21:32)
--- NOTE | 2023-09-24 22:03 | CT ---
EXAMINATION TYPE: CT brain wo con CT DLP: 1123 mGycm, Automated exposure control for dose reduction was used. DATE OF EXAM: 09/24/2023 9:41 PM COMPARISON: . CLINICAL INDICATION:Male, 78 years old with history of sepsis, cancer, altered sensorium, TECHNIQUE: Brain: Axial CT images of the brain were obtained with coronal and sagittal reformats created and rev iewed. Contrast used: None. Oral contrast used: None. FINDINGS: Brain: Extra-axial spaces: No abnormal extra-axial fluid collections. Ventricular system: Ventricles and sulci are prominent consistent with age-related involution. Cerebral parenchyma: No acute intraparenchymal hemorrhage or mass effect. The dent-white junction is well differentiated. Scattered hypoattenuating areas are seen within the white matter (chronic micro angiopathy). Cerebellum: Unremarkable. Mass effect: No evidence of midline shift. Intracranial vasculature: unremarkable Soft tissues: Normal. Calvarium/osseous structures: No depressed skull fracture. Paranasal sinuses and mastoid air cells: Mild scattered paranasal sinus disease. Visualized orbits: Orbital contents are intact. IMPRESSION: No acute intracranial process. Age-related chronic microangiopathy and age-related involution
[2023-09-24] MEDS: VANCOMYCIN 1,750 MG in SODIUM CHLORIDE 0.9% 500 ML 500 ML IVPB ONE (22:48)
[2023-09-25] MEDS ORDERED: NALOXONE 0.4 MG/ML 1 ML VIAL IV PRN (00:21)
[2023-09-25] MEDS: SODIUM CHLORIDE 0.9% 1,000 ML IV SCH (00:42)
[2023-09-25] MEDS: SODIUM CHLORIDE 0.9% 500 ML 250 ML IV ONE (01:06)
--- NOTE | 2023-09-25 01:55 | CT ---
EXAM: CT Angiography Chest With Intravenous Contrast CLINICAL HISTORY: ITS.REASON CT Reason: elevated dimer TECHNIQUE: Axial computed tomographic angiography images of the chest with intravenous contrast. CTDI is 35.1 mGy and DLP is 482.3 mGy-cm. This CT exam was performed using one or more of the following dose reduction techniques: automated exposure control, adjustment of the mA and/or kV according to patient size, and/or use of iterative reconstruction technique. MIP reconstructed images were created and reviewed. COMPARISON: 09/08/2023. FINDINGS: Pulmonary arteries: Central pulmonary arteries are unremarkable. No peripheral pulmonary emboli detected. Aorta: Atherosclerotic disease of the thoracic aorta. No thoracic aortic aneurysm. Lungs: COPD. Airway is normal. Presumed subsegmental atelectasis near the lung bases. No mass. Pleural space: Moderate left pleural effusion. No pneumothorax. Heart: Cardiomegaly. No significant pericardial effusion. No evidence of RV dysfunction. Bones/joints: No acute fracture. No dislocation. Soft tissues: Unremarkable. Lymph nodes: Unremarkable. No enlarged lymph nodes. IMPRESSION: 1. Consolidative changes noted at the left lower lobe most compatible with left lower lobe pneumonia. 2. No central or peripheral pulmonary emboli detected. 3. Atherosclerotic disease of the thoracic aorta. 4. Cardiomegaly. 5. Moderate left pleural effusion. 6. Fatty liver.
[2023-09-25 03:54] LABS: Appearance,Urine Clear (Clear); Bilirubin,Urine Negative (Negative); Blood,Urine Negative (Negative); Color,Urine Light Yellow; Glucose,Urine (UA) Negative (Negative); Ketones,Urine Negative (Negative); Leukocyte Esterase,Urine Negative (Negative); Nitrite,Urine Negative (Negative); PH, Urine 5.5 (5.0-8.0); Protein,Urine Trace (Negative); Specific Gravity,Urine 1.024 (1.001-1.035); Urobilinogen,Urine <2.0 mg/dL (<2.0)
[2023-09-25] MEDS: TAMSULOSIN 0.4 MG CAP.ER.24H PO SCH (09:17)
[2023-09-25] MEDS: FAMOTIDINE 20 MG TAB PO SCH (09:17)
[2023-09-25] MEDS ORDERED: ONDANSETRON ODT 4 MG TAB PO PRN (13:22)
[2023-09-25] MEDS ORDERED: IPRATROPIUM-ALBUTEROL 3 ML NEB INHALATION PRN (13:26)
[2023-09-25] MEDS ORDERED: ZOLEDRONIC ACID 4 MG/5 ML VIAL IV SCH (13:30)
[2023-09-25] MEDS ORDERED: ERGOCALCIFEROL 1,250 MCG (50,000 IU) CAPSULE PO SCH (13:30)
[2023-09-25] MEDS: FUROSEMIDE 10 MG/ML 4 ML VIAL IV SCH (13:50)
[2023-09-25] MEDS: PIPERACILLIN-TAZOBACTAM 3.375 GM in SODIUM CHLORIDE 0.9% 100 ML IVPB SCH (13:50)
[2023-09-25] MEDS: FERROUS SULFATE 325 MG TAB PO SCH (13:50)
[2023-09-25] MEDS: IPRATROPIUM-ALBUTEROL 3 ML NEB INHALATION SCH (14:02)
--- NOTE | 2023-09-25 15:24 | P.CNPUL ---
History of Present Illness Consult date: 09/25/23 Requesting physician: Hussein E Jax Reason for consult: dyspnea Chief complaint: Generalized weakness History of present illness: This is a 78-year-old male patient with a history of hypertension hyperlipidemia, mild intermittent chronic bronchial asthma, former smoker. 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 His treatment had been on pause due to frequent admissions to the hospital for weakness. He was most recently taking Braftovi and Mektovi prior to his admission earlier this month here. He had a follow-up PET scan on September 22, 2023 that revealed minimal response to therapy. Left lower lobe pulmonary nodule not significantly changed from previous. Decreasing FDG activity in the left perihilar activity as well as left pulmonary hilum lymph node. FDG activity within the osseous structures is mixed response and some decrease in FDG while others have increased. New small left pleural effusion. He was due to see Dr. Leigh 09/29/2023 for results of the PET scan. He was brought into the emergency room by EMS last evening due to profound weakness. He was too weak to even get up off the couch. He was also hypotensive when evaluated by EMS. Chest x-ray reveals left pleural effusion some atelectasis or consolidation in the left lung base. CT scan of the brain revealed no acute intracranial process. CT angiogram revealed consolidative changes in the left lower lobe most compatible with left lower lobe pneumonia. No central or peripheral pulmonary emboli detected. He is seen today in consultation on the regular medical floor. He is currently resting fairly comfortably in bed. Awake and alert in no acute distress. Calcitonin 37.4. Troponin 0.101, 0.066, 0.050. White count 6.4. Hemoglobin 9.8. Platelets 156. D-dimer 0.95. Sodium 135. Potassium 4.0. Bicarb 30. BUN 17. Creatinine 1.58. Urinalysis clean. Viral screen negative. He is maintaining good O2 saturation in the mid 90s on 3 L/min per nasal cannula. He has been afebrile. Hemodynamically stable. He has received 4 L of IV fluid resuscitation. He has been initiated on vancomycin and Zosyn. Review of Systems REVIEW OF SYSTEMS: CONSTITUTIONAL: Positive for generalized weakness. Denies any recent significant weight loss or weight gain. EYES: Denies change in vision. EARS, NOSE, MOUTH, THROAT: Denies headaches, denies sore throat. CARDIOVASCULAR: Denies chest pain, palpitations or syncopal episodes. RESPIRATORY: Positive for shortness of breath, no cough, congestion or hemoptysis. GASTROINTESTINAL: Denies change in appetite, denies abdominal pain GENITOURINARY: Denies hematuria, denies infections. MUSKULOSKELETAL: Denies pain, denies swelling. INTEGUMENTARY: Denies rash, denies eczema. NEUROLOGICAL: Denies recent memory loss, no recent seizure activity. PSYCHIATRIC: Denies anxiety, denies depression. HEMATOLOGIC/LYMPHATIC: Denies anemia, denies enlarged lymph nodes. Past Medical History Past Medical History: Asthma, Cancer, COPD, GERD/Reflux, Hyperlipidemia, Hypertension, Pneumonia, Prostate Disorder, Rheumatoid Arthritis (RA), Sleep Apnea/CPAP/BIPAP Additional Past Medical History / Comment(s): cardiomyopathy, anemia, lung cancer diagnosed 12/29/2022 (last chemo finished 08/21/23, last radiation 06/2023) History of Any Multi-Drug Resistant Organisms: None Reported Past Surgical History: Hernia Repair, Joint Replacement, Orthopedic Surgery Additional Past Surgical History / Comment(s): colonoscopy,EGD, Scotty hip replacments, scotty fx ankles, screws removed from rt ankle Past Anesthesia/Blood Transfusion Reactions: No Reported Reaction Past Psychological History: Depression Smoking Status: Former smoker Past Alcohol Use History: Occasional Past Drug Use History: None Reported Medications and Allergies Home Medications Medication Instructions Recorded Confirmed Type Pramipexole Di-HCl [Mirapex] 1.5 mg PO BID 01/03/14 09/25/23 History allopurinoL [Zyloprim] 100 mg PO HS 01/03/14 09/25/23 History Albuterol Sulfate [Albuterol 1 - 2 puff PO RT-Q4H PRN 04/15/23 09/25/23 History Sulfate Hfa] Ergocalciferol (Vitamin D2) 1,250 mcg PO Q14D 04/15/23 09/25/23 History [Drisdol (50,000 Iu)] Ferrous Sulfate [Iron (65 MG 975 mg PO PC-LUNCH 04/15/23 09/25/23 History Elemental)] Fluticasone Propion/Salmeterol 1 puff INHALATION RT-BID 04/15/23 09/25/23 History [Advair 250-50 Diskus] Montelukast [Singulair] 10 mg PO HS 04/15/23 09/25/23 History Tamsulosin [Flomax] 0.4 mg PO DAILY 04/15/23 09/25/23 History carvediloL [Coreg] 3.125 mg PO BID 04/15/23 09/25/23 History Binimetinib [Mektovi] 30 mg PO BID 06/08/23 09/25/23 History Encorafenib [Braftovi] 300 mg PO DAILY 06/08/23 09/25/23 History Albuterol Nebulized [Ventolin 2.5 mg INHALATION RT-BID 09/08/23 09/25/23 History Nebulized] Benralizumab [Fasenra] 30 mg SQ Q42D 09/08/23 09/25/23 History Calcium Carbonate [Calcium] 600 mg PO BID@1200,2100 09/08/23 09/25/23 History Cholecalciferol [Vitamin D3 (10 10 mcg PO BID@1200,2100 09/08/23 09/25/23 History Mcg = 400 Iu)] Docusate Sodium 250 mg PO DAILY 09/08/23 09/25/23 History Ezetimibe [Zetia] 10 mg PO DAILY 09/08/23 09/25/23 History Omeprazole [PriLOSEC] 40 mg PO DAILY 09/08/23 09/25/23 History Zoledronic Acid [Zometa] 4 mg IV Q90D 09/08/23 09/25/23 History Furosemide [Lasix] 40 mg PO BID@0900,1600 30 Days #60 09/10/23 09/25/23 Rx tab Magnesium 250 mg PO DAILY 09/25/23 09/25/23 History Ondansetron Odt [Zofran Odt] 4 mg PO DAILY PRN 09/25/23 09/25/23 History Allergies Allergy/AdvReac Type Severity Reaction Status Date / Time No Known Allergies Allergy Verified 09/08/23 09:55 Physical Exam Vitals: Vital Signs Temp Pulse Pulse Resp BP BP Pulse Ox 09/25/23 14:17 82 09/25/23 14:02 80 09/25/23 12:58 98.1 F 77 18 148/70 95 09/25/23 12:00 84 16 124/63 98 09/25/23 11:00 81 15 110/65 97 09/25/23 10:00 101 H 14 123/74 97 09/25/23 09:00 67 14 147/64 96 09/25/23 08:00 70 15 148/78 97 09/25/23 07:00 58 L 16 118/87 09/25/23 06:00 85 17 91/78 09/25/23 05:00 54 L 13 127/63 09/25/23 04:00 65 16 116/80 93 L 09/25/23 03:00 53 L 14 116/56 92 L 09/25/23 02:00 77 14 110/50 93 L 09/25/23 01:30 64 14 111/67 92 L 09/25/23 01:00 64 16 120/55 95 09/25/23 00:00 70 14 105/65 97 09/24/23 23:45 81 12 105/63 97 09/24/23 23:30 66 14 113/55 95 09/24/23 23:15 74 15 118/57 98 09/24/23 23:00 67 12 107/57 94 L 09/24/23 22:45 57 L 12 103/60 97 09/24/23 22:30 62 19 101/56 98 09/24/23 22:15 78 16 100/59 98 09/24/23 22:00 64 14 107/57 98 09/24/23 21:45 82 12 107/57 98 09/24/23 21:30 78 15 93/46 98 09/24/23 21:15 80 14 89/53 98 09/24/23 21:00 84 17 89/53 97 09/24/23 20:45 79 16 80/58 99 09/24/23 20:30 76 17 94/60 97 09/24/23 20:15 78 17 82/47 96 09/24/23 20:00 76 16 79/48 96 09/24/23 19:18 98.3 F 92 18 83/54 94 L 09/24/23 19:11 98.3 F 94 19 77/46 91 L Intake and Output 09/25/23 09/25/23 09/25/23 06:59 14:59 22:59 Other: Weight 90.718 kg GENERAL EXAM: Alert, weak, fatigued 78-year-old male, on 3 L nasal cannula, comfortable in no apparent distress. HEAD: Normocephalic. EYES: Normal reaction of pupils, equal size. NOSE: Clear with pink turbinates. THROAT: No erythema or exudates. NECK: No masses, no JVD. CHEST: No chest wall deformity. LUNGS: Equal air entry with crackles in the left lung base, diminished. CVS: S1 and S2 normal with no audible murmur, regular rhythm. ABDOMEN: No hepatosplenomegaly, normal bowel sounds, no guarding or rigidity. SPINE: No scoliosis or deformity SKIN: No rashes CENTRAL NERVOUS SYSTEM: No focal deficits, tone is normal in all 4 extremities. EXTREMITIES: There is no peripheral edema. No clubbing, no cyanosis. Peripheral pulses are intact. Results - Laboratory Findings CBC and BMP: 09/24/23 20:12 09/24/23 20:12 PT/INR, D-dimer PT 11.5 sec (10.0-12.5) 09/24/23 20:12 INR 1.1 (<1.2) 09/24/23 20:12 D-Dimer 0.95 mg/L FEU (<0.60) H 09/24/23 20:12 Abnormal lab findings: Abnormal Labs 09/24/23 09/24/23 09/24/23 20:12 20:12 20:12 RBC 3.16 L Hgb 9.8 L Hct 30.6 L RDW 17.3 H D-Dimer 0.95 H Sodium 135 L Creatinine 1.58 H Calcium 7.8 L Troponin I Total Protein 5.9 L Albumin 2.9 L Procalcitonin Urine Protein 09/24/23 09/25/23 09/25/23 20:29 00:05 03:00 RBC Hgb Hct RDW D-Dimer Sodium Creatinine Calcium Troponin I 0.101 H* 0.066 H* Total Protein Albumin Procalcitonin Urine Protein Trace H 09/25/23 09/25/23 09/25/23 03:26 06:40 06:40 RBC Hgb Hct RDW D-Dimer Sodium Creatinine Calcium Troponin I 0.050 H* 0.036 H* Total Protein Albumin Procalcitonin 37.40 H Urine Protein - Diagnostic Findings Chest x-ray: image reviewed CT scan - chest: image reviewed Assessment and Plan Assessment: Acute hypoxemic respiratory failure secondary to left pleural effusions, possible underlying pneumonitis/pneumonia Generalized weakness secondary to hypotension and anemia Small pericardial effusion Acute kidney injury suspect secondary to hypotension/dehydration Metastatic stage IV lung cancer non-small cell adenocarcinoma and some suspicion for small cell lung cancer based on tumor markers, genetic mutations. Completed palliative radiation to the sternum and left scapula. Completed chemotherapy of carboplatin/etoposide/Tecentriq. Currently on Braftovi and Mektovi. Discontinued earlier this month due to above symptoms. PET scan from 09/22/2023 revealed minimal response to therapy. Left lower lobe pulmonary nodule not significantly changed from previous. Decreasing FDG activity in the left perihilar activity as well as left pulmonary hilum lymph node. FDG activity within the osseous structures is mixed response and some decrease in FDG while others have increased. New small left pleural effusion. He was due to see Dr. Leigh 09/29/2023 for results of the PET scan. History of mild intermittent chronic bronchial asthma Former smoker Hypertension Hyperlipidemia Obstructive sleep apnea History of depression Plan: The patient was seen and evaluated Chest x-ray, CT angiogram, labs and medications reviewed Will obtain ultrasound of the left chest Continue bronchodilators Continue vancomycin and Zosyn for now Titrate the FiO2 as tolerated Add normal saline at 75 MLS per hour We will continue to follow and make further recommendations based on his clinical status I have personally seen and examined the patient, performed the documentation and the assessment and plan as written. Number of minutes spent on the visit: 20.
--- NOTE | 2023-09-25 16:25 | US ---
EXAMINATION TYPE: US chest DATE OF EXAM: 09/25/2023 COMPARISON: NONE CLINICAL INDICATION: Male, 78 years old with history of Left pleural effusion; TECHNIQUE: Targeted ultrasound of the posterior lower EXAM MEASUREMENTS: Right Pleural Effusion pocket size: NA cm Right skin surface to fluid distance: NA cm Left Pleural Effusion pocket size: 2.3 - 6.8 cm Left skin surface to fluid distance: 3.4 cm Left side marked for possible thoracentesis outside the dept. Pulmonologists are able to review the images in the patient?s EMR. IMPRESSIONS: Left pleural effusion marked for thoracentesis.
[2023-09-25] MEDS: VANCOMYCIN 1,750 MG in SODIUM CHLORIDE 0.9% 500 ML 500 ML IVPB SCH (16:54)
[2023-09-25] MEDS: ACETAMINOPHEN TAB 325 MG TAB PO PRN (16:55)
[2023-09-25] MEDS: carvediloL 3.125 MG TAB PO SCH (16:55)
[2023-09-25] MEDS: allopurinoL 100 MG TAB PO SCH (20:37)
[2023-09-25] MEDS: CHOLECALCIFEROL 10 MCG (400 IU) TABLET PO SCH (20:37)
[2023-09-25] MEDS: HEPARIN SODIUM,PORCINE 5,000 UNIT/ML 1 ML VIAL SQ SCH (20:37)
[2023-09-25] MEDS: CALCIUM CARBONATE 500 MG CHEWABLE PO SCH (20:37)
[2023-09-25] MEDS: PRAMIPEXOLE 0.5 MG TAB PO SCH (20:37)
[2023-09-25] MEDS: MONTELUKAST 10 MG TAB PO SCH (20:37)
[2023-09-25] MEDS: traMADol 50 MG TAB PO PRN (20:45)
--- NOTE | 2023-09-25 21:58 | P.CONS ---
History of Present Illness - Reason for Consult Consult date: 09/25/23 Pneumonia Requesting physician: Dank Mantilla - Chief Complaint Weakness and shortness of breath x days - History of Present Illness Patient is a 78-year-old male with a past medical history significant for hypertension hyperlipidemia rheumatoid arthritis sleep apnea COPD reflux and depression presenting to the hospital for evaluation of weakness and this patien t symptom has been getting worse for the last few days patient has been sleeping more than usual every time he tried to get up he was too weak to get up also noted to have low blood pressure at home patient denies high-grade fever did have some chills patient denies having any URI symptoms or chest pain has been complaining of cough mild to moderate intensity with decreased progression has not hemoptysis patient denies any nausea vomiting no choking on food no abdominal pain vomiting diarrhea on presentation to the hospital patient was afebrile he did have a tachycardia at 1 point not hypotensive hypoxic requiring supplemental oxygen patient did have a white count of 6.4 creatinine is 1.58 l iver isms are normal procalcitonin 37.40 urine has been negative influenza RSV COVID testing has been negative patient did have a CT angiogram of the chest that was negative for PE did shows moderate left effusion with compressiveatelectasis/consolidation patient was started on vancomycin and Zosyn admitted to hospital infectious disease was consulted for further management of antibiotic therapy Review of Systems Positive point and negatives has been mentioned in the HPI, complete review of systems was performed and all other systems are negative Past Medical History Past Medical History: Asthma, Cancer, COPD, GERD/Reflux, Hyperlipidemia, Hypertension, Pneumonia, Prostate Disorder, Rheumatoid Arthritis (RA), Sleep Apnea/CPAP/BIPAP Additional Past Medical History / Comment(s): cardiomyopathy, anemia, lung cancer diagnosed 12/29/2022 (last chemo finished 08/21/23, last radiation 06/2023) History of Any Multi-Drug Resistant Organisms: None Reported Past Surgical History: Hernia Repair, Joint Replacement, Orthopedic Surgery Additional Past Surgical History / Comment(s): colonoscopy,EGD, Scotty hip replacments, scotty fx ankles, screws removed from rt ankle Past Anesthesia/Blood Transfusion Reactions: No Reported Reaction Past Psychological History: Depression Smoking Status: Former smoker Past Alcohol Use History: Occasional Past Drug Use History: None Reported Medications and Allergies Home Medications Medication Instructions Recorded Confirmed Type Pramipexole Di-HCl [Mirapex] 1.5 mg PO BID 01/03/14 09/25/23 History allopurinoL [Zyloprim] 100 mg PO HS 01/03/14 09/25/23 History Albuterol Sulfate [Albuterol 1 - 2 puff PO RT-Q4H PRN 04/15/23 09/25/23 History Sulfate Hfa] Ergocalciferol (Vitamin D2) 1,250 mcg PO Q14D 04/15/23 09/25/23 History [Drisdol (50,000 Iu)] Ferrous Sulfate [Iron (65 MG 975 mg PO PC-LUNCH 04/15/23 09/25/23 History Elemental)] Fluticasone Propion/Salmeterol 1 puff INHALATION RT-BID 04/15/23 09/25/23 History [Advair 250-50 Diskus] Montelukast [Singulair] 10 mg PO HS 04/15/23 09/25/23 History Tamsulosin [Flomax] 0.4 mg PO DAILY 04/15/23 09/25/23 History carvediloL [Coreg] 3.125 mg PO BID 04/15/23 09/25/23 History Binimetinib [Mektovi] 30 mg PO BID 06/08/23 09/25/23 History Encorafenib [Braftovi] 300 mg PO DAILY 06/08/23 09/25/23 History Albuterol Nebulized [Ventolin 2.5 mg INHALATION RT-BID 09/08/23 09/25/23 History Nebulized] Benralizumab [Fasenra] 30 mg SQ Q42D 09/08/23 09/25/23 History Calcium Carbonate [Calcium] 600 mg PO BID@1200,2100 09/08/23 09/25/23 History Cholecalciferol [Vitamin D3 (10 10 mcg PO BID@1200,2100 09/08/23 09/25/23 History Mcg = 400 Iu)] Docusate Sodium 250 mg PO DAILY 09/08/23 09/25/23 History Ezetimibe [Zetia] 10 mg PO DAILY 09/08/23 09/25/23 History Omeprazole [PriLOSEC] 40 mg PO DAILY 09/08/23 09/25/23 History Zoledronic Acid [Zometa] 4 mg IV Q90D 09/08/23 09/25/23 History Furosemide [Lasix] 40 mg PO BID@0900,1600 30 Days #60 09/10/23 09/25/23 Rx tab Magnesium 250 mg PO DAILY 09/25/23 09/25/23 History Ondansetron Odt [Zofran Odt] 4 mg PO DAILY PRN 09/25/23 09/25/23 History Allergies Allergy/AdvReac Type Severity Reaction Status Date / Time No Known Allergies Allergy Verified 09/08/23 09:55 Physical Exam Vitals: Vital Signs Temp Pulse Pulse Resp BP BP Pulse Ox 09/25/23 14:17 82 09/25/23 14:02 80 09/25/23 12:58 98.1 F 77 18 148/70 95 09/25/23 12:00 84 16 124/63 98 09/25/23 11:00 81 15 110/65 97 09/25/23 10:00 101 H 14 123/74 97 09/25/23 09:00 67 14 147/64 96 09/25/23 08:00 70 15 148/78 97 09/25/23 07:00 58 L 16 118/87 09/25/23 06:00 85 17 91/78 09/25/23 05:00 54 L 13 127/63 09/25/23 04:00 65 16 116/80 93 L 09/25/23 03:00 53 L 14 116/56 92 L 09/25/23 02:00 77 14 110/50 93 L 09/25/23 01:30 64 14 111/67 92 L 09/25/23 01:00 64 16 120/55 95 09/25/23 00:00 70 14 105/65 97 09/24/23 23:45 81 12 105/63 97 09/24/23 23:30 66 14 113/55 95 09/24/23 23:15 74 15 118/57 98 09/24/23 23:00 67 12 107/57 94 L 09/24/23 22:45 57 L 12 103/60 97 09/24/23 22:30 62 19 101/56 98 09/24/23 22:15 78 16 100/59 98 09/24/23 22:00 64 14 107/57 98 09/24/23 21:45 82 12 107/57 98 09/24/23 21:30 78 15 93/46 98 07/27/24 21:15 80 14 89/53 98 09/24/23 21:00 84 17 89/53 97 09/24/23 20:45 79 16 80/58 99 09/24/23 20:30 76 17 94/60 97 09/24/23 20:15 78 17 82/47 96 09/24/23 20:00 76 16 79/48 96 09/24/23 19:18 98.3 F 92 18 83/54 94 L 09/24/23 19:11 98.3 F 94 19 77/46 91 L Intake and Output 09/25/23 09/25/23 09/25/23 06:59 14:59 22:59 Other: Weight 90.718 kg GENERAL DESCRIPTION: Elderly male lying in bed, no distress. No tachypnea or accessory muscle of respiration use. HEENT: Shows Pallor , no scleral icterus. Oral mucous membrane is dry. No pharyngeal erythema or thrush NECK: Trachea central, no thyromegaly. LUNGS: Unlabored breathing. Decreased breath sound at the base HEART: S1, S2, regular rate and rhythm. No loud murmur ABDOMEN: Soft, no tenderness , guarding or rigidity, no organomegaly EXTREMITIES: No edema of feet. SKIN: No rash, no masses palpable. NEUROLOGICAL: The patient is awake, alert, oriented x3, mood and affect normal. Results CBC & Chem 7: 09/24/23 20:12 09/24/23 20:12 Labs: Abnormal Lab Results - Last 24 Hours (Table) 09/24/23 09/24/23 09/24/23 Range/Units 20:12 20:12 20:12 RBC 3.16 L (4.30-5.90) m/uL Hgb 9.8 L (13.0-17.5) gm/dL Hct 30.6 L (39.0-53.0) % RDW 17.3 H (11.5-15.5) % D-Dimer 0.95 H (<0.60) mg/L FEU Sodium 135 L (137-145) mmol/L Creatinine 1.58 H (0.66-1.25) mg/dL Calcium 7.8 L (8.4-10.2) mg/dL Troponin I (0.000-0.034) ng/mL Total Protein 5.9 L (6.3-8.2) g/dL Albumin 2.9 L (3.5-5.0) g/dL Procalcitonin (0.02-0.50) ng/mL Urine Protein (Negative) 09/24/23 09/25/23 09/25/23 Range/Units 20:29 00:05 03:00 RBC (4.30-5.90) m/uL Hgb (13.0-17.5) gm/dL Hct (39.0-53.0) % RDW (11.5-15.5) % D-Dimer (<0.60) mg/L FEU Sodium (137-145) mmol/L Creatinine (0.66-1.25) mg/dL Calcium (8.4-10.2) mg/dL Troponin I 0.101 H* 0.066 H* (0.000-0.034) ng/mL Total Protein (6.3-8.2) g/dL Albumin (3.5-5.0) g/dL Procalcitonin (0.02-0.50) ng/mL Urine Protein Trace H (Negative) 09/25/23 09/25/23 09/25/23 Range/Units 03:26 06:40 06:40 RBC (4.30-5.90) m/uL Hgb (13.0-17.5) gm/dL Hct (39.0-53.0) % RDW (11.5-15.5) % D-Dimer (<0.60) mg/L FEU Sodium (137-145) mmol/L Creatinine (0.66-1.25) mg/dL Calcium (8.4-10.2) mg/dL Troponin I 0.050 H* 0.036 H* (0.000-0.034) ng/mL Total Protein (6.3-8.2) g/dL Albumin (3.5-5.0) g/dL Procalcitonin 37.40 H (0.02-0.50) ng/mL Urine Protein (Negative) Assessment and Plan (1) Pneumonia Current Visit: Yes Status: Acute Code(s): J18.9 - PNEUMONIA, UNSPECIFIED ORGANISM SNOMED Code(s): 207910471 (2) Sepsis Current Visit: Yes Status: Acute Code(s): A41.9 - SEPSIS, UNSPECIFIED ORGANISM SNOMED Code(s): 71836819 Plan: 1patient presented to hospital with generalized weakness no energy and this patient who did have features of SIRS with hypotension tachycardia and did have evidence of pneumonia medically clear for sepsis will need to cover for the both gram-positive as well as gram-negative pathogen 2-patient did have borderline kidney function and risk of nephrotoxicity 3-we will continue patient on vancomycin however to decrease risk of nephrotoxicity discontinue Zosyn start the patient on cefepime 4we will try to obtain sputum for Gram stain and culture will benefit possible thoracocentesis fluid should be sent for culture Question concern answered We will follow on clinical condition and cultures to further adjust medication if needed Thank you for this consultation we will follow the patient along with you Dictation was produced using [employer] dictation software. please excuse any gramm atical, word or spelling errors. Time with Patient: Greater than 30
[2023-09-25] MEDS: NON FORMULARY DRUG (Fluticasone Propion/Salmeterol [Advair 250-50 Diskus] 1 EACH Each) INHALATION SCH (23:50)
[2023-09-25] MEDS: CEFEPIME 2 GM in SODIUM CHLORIDE 0.9% 100 ML IVPB SCH (23:53)
--- NOTE | 2023-09-26 00:18 | HP ---
HISTORY AND PHYSICAL CHIEF COMPLAINT: Weakness, hypotension, and cough. HISTORY OF PRESENT ILLNESS: This is a 78-year-old gentleman with a past medical history of multiple medical problems including medications including lung cancer, cardiomyopathy, was recently admitted with CHF and bilateral pleural effusions. Currently, the patient is complaining of some change in mental status, weak, and blood pressure is 50/30. The patient came to [facility]. The patient also had left lower lobe pneumonia, admitted for further evaluation with possible sepsis. There is no history of any fever, rigors, or chills at this time. PAST MEDICAL HISTORY: Reviewed include history of asthma, hypertension, hyperlipidemia, history of sleep apnea. Rest of the history and rest of the chart is also reviewed. HOME MEDICATIONS: Reviewed include Zofran, doses and rest of medications reviewed. ALLERGIES: None. FAMILY HISTORY: No history of heart disease or strokes in the family. SOCIAL HISTORY: Previous history of smoking. REVIEW OF SYSTEMS: A 14-point review is negative except as mentioned earlier. PHYSICAL EXAMINATION: VITAL SIGNS: Pulse is 76, blood pressure 140/87, respirations 18. HEENT: Conjunctivae normal. NECK: No jugular venous distention. RESPIRATIONS: Diminished at the bases, few scattered rhonchi and crackles. ABDOMEN: Soft, nontender. LEGS: No edema, no swelling. NERVOUS SYSTEM: Nonfocal. LABORATORY DATA: Sodium 135, troponin 0.105. ASSESSMENT: 1. Acute left lower lobe pneumonia with possible sepsis present on admission. Consider aspiration in hospital for acute pneumonia. 2. Troponin 0.036 of undetermined etiology. 3. Hyponatremia. 4. History of asthma. 5. GERD. 6. Hypertension. 7. Hyperlipidemia. 8. History of DJD. 9. Sleep apnea. RECOMMENDATIONS AND DISCUSSION: This 78-year-old man presented with multiple complex medical issues, we will monitor the patient closely. I would recommend to continue current medications, continue symptomatic treatment. We will get Pulmonary Infectious Disease and Hematology Oncology evaluation. The patient is probably immunosuppressed as well. The COVID-19 battery of testing is negative at this time. Prognosis guarded. I would also recommend cardiology consultation because of the elevated troponin also. We will continue to diurese as well. MMODL / IJN: [id number] /
[2023-09-26 07:39] LABS: Anisocytosis Slight; Basophils % (A) 1 %; Eosinophils # (A) 0.4 k/uL (0-0.7); Eosinophils % (A) 9 %; HCT 29.7 % (39.0-53.0); HGB 9.2 gm/dL (13.0-17.5); Hypochromasia Marked; Lymphocytes # (A) 0.8 k/uL (1.0-4.8); Lymphocytes % (A) 19 %; MCH 30.5 pg (25.0-35.0); MCHC 31.1 g/dL (31.0-37.0); MCV 98.1 fL (80.0-100.0); Macrocytosis Slight; Mean Platelet Volume 8.7; Monocytes # (A) 0.3 k/uL (0-1.0); Monocytes % (A) 7 %; Neutrophils # (A) 2.7 k/uL (1.3-7.7); Neutrophils % (A) 63 %; Platelet Count 157 k/uL (150-450); RBC 3.03 m/uL (4.30-5.90); RDW 16.9 % (11.5-15.5); WBC 4.3 k/uL (3.8-10.6)
[2023-09-26 08:06] LABS: African American GFR (CKD) 65 (>60 ml/min/1.73 sqM); Anion Gap 2 mmol/L; Blood Urea Nitrogen 15 mg/dL (9-20); Carbon Dioxide 31 mmol/L (22-30); Chloride 102 mmol/L (98-107); Glucose 89 mg/dL (74-99); Non-African American GFR(CKD) 56 (>60 ml/min/1.73 sqM); Potassium 3.7 mmol/L (3.5-5.1); Sodium 135 mmol/L (137-145)
[2023-09-26] MEDS: PANTOPRAZOLE 40 MG TABLET PO SCH (09:01)
[2023-09-26] MEDS: EZETIMIBE 10 MG TAB PO SCH (09:01)
[2023-09-26] MEDS: DOCUSATE ORAL SOLN 100 MG/10 ML CUP PO SCH (09:01)
[2023-09-26] MEDS: MAGNESIUM OXIDE 400 MG TAB PO SCH (09:01)
[2023-09-26] MEDS: FAMOTIDINE 20 MG TAB PO SCH (09:01)
--- NOTE | 2023-09-26 12:45 | P.PN ---
Subjective Progress Note Date: 09/26/23 Principal diagnosis: Reason for follow-up is left-sided pneumonia/parapneumonic effusion Patient is a 78-year-old male with a past medical history significant for hypertension hyperlipidemia rheumatoid arthritis sleep apnea COPD reflux and depression presenting to the hospital for evaluation of weakness patient did have abnormal CT with evidence of moderate effusion and left-sided compressive atelectasis/consolidation with elevated procalcitonin. On today's evaluation that is 09/26/2023, the patient continues to be afebrile, the patient is on 3 L nasal cannula oxygen and breathing comfortably, the Pt denies having any chest pain or any worsening cough or sputum production, the patient denies having any abdominal pain no vomiting or any diarrhea. Patient white count is 4.3, creatinine is 1.22 blood cultures pending Objective - Vital Signs Vital signs: Vital Signs Temp 97.9 F 09/26/23 08:50 Pulse 65 09/26/23 11:25 Resp 18 09/26/23 11:25 BP 143/77 09/26/23 11:25 Pulse Ox 98 09/26/23 11:25 FiO2 Intake & Output 09/25/23 09/26/23 09/26/23 18:59 06:59 18:59 Intake Total 130 20 128 Output Total 1475 650 Balance -1345 -630 128 Weight 90.718 kg 83.5 kg Intake: IV 10 20 10 Invasive Line 2 10 20 10 Oral 120 118 Output: Urine 1475 650 Other: Voiding Method Urinal Urinal Urinal # Voids 1 # Bowel Movements 1 - Exam GENERAL DESCRIPTION: An elderly male lying in bed in no distress RESPIRATORY SYSTEM: Unlabored breathing , decreased breath sounds at bases HEART: S1 S2 regular rate and rhythm , ABDOMEN: Soft , no tenderness EXTREMITIES: No edema feet - Labs CBC & Chem 7: 09/26/23 07:01 09/26/23 07:01 Labs: Abnormal Lab Results - Last 24 Hours (Table) 09/25/23 09/26/23 09/26/23 Range/Units 06:40 07:01 07:01 RBC 3.03 L (4.30-5.90) m/uL Hgb 9.2 L (13.0-17.5) gm/dL Hct 29.7 L (39.0-53.0) % RDW 16.9 H (11.5-15.5) % Lymphocytes # 0.8 L (1.0-4.8) k/uL Sodium 135 L (137-145) mmol/L Carbon Dioxide 31 H (22-30) mmol/L Calcium 8.0 L (8.4-10.2) mg/dL Procalcitonin 37.40 H (0.02-0.50) ng/mL Microbiology - Last 24 Hours (Table) 09/24/23 20:15 Blood Culture - Preliminary Blood 09/24/23 20:00 Blood Culture - Preliminary Blood Assessment and Plan (1) Pneumonia Current Visit: Yes Status: Acute Code(s): J18.9 - PNEUMONIA, UNSPECIFIED ORGANISM SNOMED Code(s): 902688989 (2) Sepsis Current Visit: Yes Status: Acute Code(s): A41.9 - SEPSIS, UNSPECIFIED ORGANISM SNOMED Code(s): 36571559 Plan: 1patient presented to hospital with generalized weakness no energy and this patient who did have features of SIRS with hypotension tachycardia and did have evidence of pneumonia medically clear for sepsis will need to cover for the both gram-positive as well as gram-negative pathogen 2-try to obtain sputum for Gram stain and culture will benefit possible thoracocentesis fluid should be sent for culture 3patient to continue vancomycin cefepime while waiting for the culture to finalize Dictation was produced using [employer] dictation software. please excuse any grammatical, word or spelling errors. Time with Patient: Less than 30
[2023-09-26 13:13] VITALS: BMI 27.1
--- NOTE | 2023-09-26 14:14 | PN ---
PROGRESS NOTE DATE OF SERVICE: 09/26/2023 SUBJECTIVE: This 78-year-old gentleman admitted with acute left lower lobe pneumonia, possibly hospital acquired in the setting of immunosuppression, had some left pleural effusion also. Multiple consultants are following the patient closely. OBJECTIVE: VITAL SIGNS: Pulse is 65, blood pressure 143/70, and respirations 18. CHEST: Few scattered rhonchi and crackles. ABDOMEN: Soft, nontender. NERVOUS SYSTEM: Nonfocal. LAB: Troponins noted, rest of the labs are also noted. ASSESSMENT: 1. Acute left lower lobe pneumonia with possible sepsis present on admission with left pleural effusion, possibly aspiration versus hospital-acquired pneumonia. 2. Troponin 0.036 of undetermined etiology. 3. Hyponatremia. 4. History of asthma. 5. GERD. 6. Hypertension. 7. Hyperlipidemia. 8. History of DJD. 9. Sleep apnea. RECOMMENDATIONS AND DISCUSSION: Recommended to continue current management, continue symptomatic. Otherwise at this time I will recommend continue with IV antibiotics, cultures. Closely follow with multiple consultants. Repeat labs will be ordered. Sodium is 135. Prognosis guarded. Further recommendations to follow. MMODL / IJN: [id number] /
--- NOTE | 2023-09-26 14:39 | P.PN ---
Subjective Progress Note Date: 09/26/23 Principal diagnosis: Acute hypoxic respiratory failure with left pleural effusion and possible left lower lobe pneumonia/pneumonitis This is a 78-year-old male patient with a history of hypertension hyperlipidemia, mild intermittent chronic bronchial asthma, former smoker. 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 His treatment had been on pause due to frequent admissions to the hospital for weakness. He was most recently taking Braftovi and Mektovi prior to his admission earlier this month here. He had a follow-up PET scan on September 22, 2023 that revealed minimal response to therapy. Left lower lobe pulmonary nodule not significantly changed from previous. Decreasing FDG activity in the left perihilar activity as well as left pulmonary hilum lymph node. FDG activity within the osseous structures is mixed response and some decrease in FDG while others have increased. New small left pleural effusion. He was due to see Dr. Leigh 09/29/2023 for results of the PET scan. He was brought into the emergency room by EMS last evening due to profound weakness. He was too weak to even get up off the couch. He was also hypotensive when evaluated by EMS. Chest x-ray reveals left pleural effusion some atelectasis or consolidation in the left lung base. CT scan of the brain revealed no acute intracranial process. CT angiogram revealed consolidative changes in the left lower lobe most compatible with left lower lobe pneumonia. No central or peripheral pulmonary emboli detected. He is seen today in consultation on the regular medical floor. He is currently resting fairly co mfortably in bed. Awake and alert in no acute distress. Calcitonin 37.4. Troponin 0.101, 0.066, 0.050. White count 6.4. Hemoglobin 9.8. Platelets 156. D-dimer 0.95. Sodium 135. Potassium 4.0. Bicarb 30. BUN 17. Creatinine 1.58. Urinalysis clean. Viral screen negative. He is maintaining good O2 saturation in the mid 90s on 3 L/min per nasal cannula. He has been afebrile. Hemodynamically stable. He has received 4 L of IV fluid resuscitation. He has been initiated on vancomycin and Zosyn. Patient was evaluated on 09/26/2023, patient seems to be better today compared to yesterday, breathing easier, as a matter fact he is asking to be discharged home. On 3 L nasal cannula, O2 saturation 98%. WBC count is 4.3 hemoglobin 9.2 basic metabolic profile is normal BUN is 15 creatinine 1.22 procalcitonin level is extremely high at 37.40. Chest x-ray and CT of the chest were both reviewed, I suspect the patient has underlying left lower lobe pneumonia Objective - Vital Signs Vital signs: Vital Signs Temp 97.9 F 09/26/23 08:50 Pulse 70 09/26/23 12:56 Resp 16 09/26/23 12:56 BP 143/77 09/26/23 11:25 Pulse Ox 98 09/26/23 11:25 FiO2 Intake & Output 09/25/23 09/26/23 09/26/23 18:59 06:59 18:59 Intake Total 130 20 796 Output Total 1475 650 Balance -1345 -630 796 Weight 90.718 kg 83.5 kg 83.5 kg Intake: IV 10 20 20 Invasive Line 2 10 20 20 Oral 120 776 Output: Urine 1475 650 Other: Voiding Method Urinal Urinal Urinal # Voids 1 # Bowel Movements 1 - Exam GENERAL EXAM: Revealed 78-year-old white male on 3 L nasal cannula, not in distress HEAD: Normocephalic. EYES: Normal reaction of pupils, equal size. NOSE: Clear with pink turbinates. THROAT: No erythema or exudates. NECK: No masses, no JVD. CHEST: No chest wall deformity. LUNGS: Crackles at the left base. No rhonchi no wheezes CVS: S1 and S2 normal with no audible murmur, regular rhythm. ABDOMEN: No hepatosplenomegaly, normal bowel sounds, no guarding or rigidity. SKIN: No rashes CENTRAL NERVOUS SYSTEM: Alert and oriented x 3 no gross focal deficit EXTREMITIES: There is no peripheral edema. No clubbing, no cyanosis. Peripheral pulses are intact. - Labs CBC & Chem 7: 09/26/23 07:01 09/26/23 07:01 Labs: Abnormal Lab Results - Last 24 Hours (Table) 09/26/23 09/26/23 Range/Units 07:01 07:01 RBC 3.03 L (4.30-5.90) m/uL Hgb 9.2 L (13.0-17.5) gm/dL Hct 29.7 L (39.0-53.0) % RDW 16.9 H (11.5-15.5) % Lymphocytes # 0.8 L (1.0-4.8) k/uL Sodium 135 L (137-145) mmol/L Carbon Dioxide 31 H (22-30) mmol/L Calcium 8.0 L (8.4-10.2) mg/dL Microbiology - Last 24 Hours (Table) 09/24/23 20:15 Blood Culture - Preliminary Blood 09/24/23 20:00 Blood Culture - Preliminary Blood Assessment and Plan Assessment: Impression: Acute hypoxic respiratory failure, multifactorial secondary to left pleural effusion, left lower lobe pneumonia, metastatic stage IV lung cancer and history of mild intermittent bronchial asthma. As well as underlying COPD Generalized weakness Chronic anemia Former smoker Benign essential hypertension Dyslipidemia Obstructive sleep apnea syndrome History of depression Recommendation: Continue present supportive care measures Reviewed the results of the ultrasound of the chest, the pleural effusion does not seem to be large enough for thoracentesis, and lung tissue seems to be close to the pleural surface. continue bronchodilators Continue antibiotics Titrate FiO2 accordingly Keep IV fluid at 75 cc/h Will continue to follow-up with Time with Patient: Less than 30
--- NOTE | 2023-09-26 17:31 | P.CONS ---
History of Present Illness - Reason for Consult Consult date: 09/26/23 lung cancer Requesting physician: Dank Mantilla - Chief Complaint weakness - History of Present Illness Mr. Babcock is a 77-year-old gentleman with a past medical history significant for COPD and lung cancer. He is a patient of Dr. Monica bobby. He was initially seen in consultation at [facility] on 01/07/2023, presented with persistent left-sided chest discomfort radiating to the left shoulder, which had been occurring over 2 months prior to his presentation. CTA 01/07/2023 was negative for PE, but did reveal enlarged left lower lung mass measuring 4.2 x 2.1 cm extending towards the pulmonary hilum. In addition, there was an erosive sternal mass measuring at least 3.4 x 2.5 cm along with possible lytic lesion at T1 vertebrae measuring up to 1.[address] of the head without contrast revealed no acute intracranial process. Biopsy of the sternal mass on 01/10/2023 revealed morphologic features consistent with both adenocarcinoma and neuroendoc rine tumor. IHC was positive for TTF-1, synaptophysin, Napsin, and focal positivity for CD56 and high Ki-67 proliferative index. P40 and p63 were both negative. Following discharge, PET/CT 01/21/2023 at [facility] revealed mild FDG avidity in the lower lobe medial left lung nodule that was above the average liver SUV. There is increased FDG avidity in the sternal lesion as well as bone lesion in the posterior lateral left scapula. 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 Following his initial visit, there was a concern for potential of small cell lung cancer. He underwent 5 fractions of palliative radiation to the sternum and left scapula receiving a total of 35 Gy completed on 02/14/2023. He initiated cycle 1 of carboplatin/etoposide/Tecentriq due to this concern on 02/16/2023 through 02/18/2023. NGS from biopsy and circulating tumor DNA was significant for BRAF V600E mutation with no TP53 or RB1 mutations typically seen in small cell lung cancer. PD-L1 expression was less than 1%. Upon additional review of his pathology in light of his molecular profiling, it appears adenocarcinoma is the dominant histology with the synaptophysin being a component of adenocarcinoma with negative chromogranin. Moreover, molecular profiling did not reveal any typical mutations seen in small cell carcinoma. Treatment was switched to carboplatin/Alimta with cycle 1 on 03/17/2023 followed by cycle 2 on 04/07/2023 given with GCSF. He required hospitalization for progressive fatigue with nausea and diarrhea prompting hospitalizations. At his clinic visit on 04/14 it was decided to hold on administering any further chemotherapy to allow him to recover from the 2 cycles of carboplatin/Alimta. CT CAP 06/14/23 showed stable disease. After he recovered his treatment was changed to targeted therapy with dabrafenib/trametinib in May 2023. MRI of the neck and brain ordered for new neck pain performed on 05/27/2023 and 05/31/2023 revealed no evidence of intracranial metastases with new T1 vertebral body lesion along with degenerative changes from C2-C6. PET/CT 06/24/2023 revealed FDG uptake in the known areas of disease along with T1 vertebral body. He received 24 Moore in 3 fractions of palliative radiation therapy to the T1 vertebral body completed on 07/22/2023. Mid July 2023, he did have admission to [facility] due to influenza A and B, he was treated with IV antibiotics and Tamiflu with progressive improvement. He was seen then seen in the office c/o progressive fatigue, weakness, and intermittent confusion. He had Chest x-ray to rule out superimposed bacterial pneumonia given his recent influenza A and B, started on abx, braftovi/mektovi was held. He was then readmitted to the hospital on 4 for progressive SOB, and weakness. CTA no pl eff or PE. Small pericardial effusion. Brain CT w/w/o neg for acute process. Treatment f/u PET/CT was obtained on 09/22/2023, which showed overall stable disease; of note patient has been off treatment for most of the last 1 month prior to PET scan due to repeat admissions/infections. Patient represented to the emergency room with complaints of progressing weakness and fatigue. Spouse also states patient was having intermittent dizziness as well as confusion. On admission chest x-ray showed left pleural effusion. Atelectasis or consolidation in the left base. CT brain without contrast was negative for any acute intracranial processes. CTA chest showed consolidative changes noted in the left lower lobe. Negative for pulmonary embolism. Cardiomegaly and moderate left pleural effusion noted. Chest ultrasound revealed left pleural effusion pocket size 2.3- 6.8 cm and was marked for thoracentesis. Pulmonology following. Patient has been started on IV antibiotics. Procalcitonin elevated at 37.4. Viral panel negative. UA not quiroz spicious for UTI. Blood cultures negative at 24 hours. WBC 4.3, hemoglobin 9.2, platelets 1 57,000. Creatinine 1.22, GFR 56. Patient afebrile, SpO2 98% on 3L. Review of Systems 10 point ROS is negative except as stated in the HPI Past Medical History Past Medical History: Asthma, Cancer, COPD, GERD/Reflux, Hyperlipidemia, Hypertension, Pneumonia, Prostate Disorder, Rheumatoid Arthritis (RA), Sleep Apnea/CPAP/BIPAP Additional Past Medical History / Comment(s): cardiomyopathy, anemia, lung cancer diagnosed 12/29/2022 (last chemo finished 08/21/23, last radiation 06/2023) History of Any Multi-Drug Resistant Organisms: None Reported Past Surgical History: Hernia Repair, Joint Replacement, Orthopedic Surgery Additional Past Surgical History / Comment(s): colonoscopy,EGD, Scotty hip replacments, scotty fx ankles, screws removed from rt ankle Past Anesthesia/Blood Transfusion Reactions: No Reported Reaction Past Psychological History: Depression Smoking Status: Former smoker Past Alcohol Use History: Occasional Past Drug Use History: None Reported Medications and Allergies Home Medications Medication Instructions Recorded Confirmed Type Pramipexole Di-HCl [Mirapex] 1.5 mg PO BID 01/03/14 09/25/23 History allopurinoL [Zyloprim] 100 mg PO HS 01/03/14 09/25/23 History Albuterol Sulfate [Albuterol 1 - 2 puff PO RT-Q4H PRN 04/15/23 09/25/23 History Sulfate Hfa] Ergocalciferol (Vitamin D2) 1,250 mcg PO Q14D 04/15/23 09/25/23 History [Drisdol (50,000 Iu)] Ferrous Sulfate [Iron (65 MG 975 mg PO PC-LUNCH 04/15/23 09/25/23 History Elemental)] Fluticasone Propion/Salmeterol 1 puff INHALATION RT-BID 04/15/23 09/25/23 Histo ry [Advair 250-50 Diskus] Montelukast [Singulair] 10 mg PO HS 04/15/23 09/25/23 History Tamsulosin [Flomax] 0.4 mg PO DAILY 04/15/23 09/25/23 History carvediloL [Coreg] 3.125 mg PO BID 04/15/23 09/25/23 History Binimetinib [Mektovi] 30 mg PO BID 06/08/23 09/25/23 History Encorafenib [Braftovi] 300 mg PO DAILY 06/08/23 09/25/23 History Albuterol Nebulized [Ventolin 2.5 mg INHALATION RT-BID 09/08/23 09/25/23 History Nebulized] Benralizumab [Fasenra] 30 mg SQ Q42D 09/08/23 09/25/23 History Calcium Carbonate [Calcium] 600 mg PO BID@1200,2100 09/08/23 09/25/23 History Cholecalciferol [Vitamin D3 (10 10 mcg PO BID@1200,2100 09/08/23 09/25/23 History Mcg = 400 Iu)] Docusate Sodium 250 mg PO DAILY 09/08/23 09/25/23 History Ezetimibe [Zetia] 10 mg PO DAILY 09/08/23 09/25/23 History Omeprazole [PriLOSEC] 40 mg PO DAILY 09/08/23 09/25/23 History Zoledronic Acid [Zometa] 4 mg IV Q90D 09/08/23 09/25/23 History Furosemide [Lasix] 40 mg PO BID@0900,1600 30 Days #60 09/10/23 09/25/23 Rx tab Magnesium 250 mg PO DAILY 09/25/23 09/25/23 History Ondansetron Odt [Zofran Odt] 4 mg PO DAILY PRN 09/25/23 09/25/23 History Allergies Allergy/AdvReac Type Severity Reaction Status Date / Time No Known Allergies Allergy Verified 09/08/23 09:55 Physical Exam Vitals: Vital Signs Temp Pulse Pulse Resp BP BP Pulse Ox 09/26/23 04:15 64 18 114/58 97 09/26/23 00:20 75 18 108/64 98 09/25/23 21:21 90 09/25/23 21:06 91 09/25/23 20:30 97.7 F 77 20 94/60 100 09/25/23 16:44 97.8 F 79 20 113/73 98 09/25/23 14:17 82 09/25/23 14:02 80 09/25/23 12:58 98.1 F 77 18 148/70 95 09/25/23 12:00 84 16 124/63 98 09/25/23 11:00 81 15 110/65 97 09/25/23 10:00 101 H 14 123/74 97 09/25/23 09:00 67 14 147/64 96 Intake and Output 09/25/23 09/26/23 09/26/23 22:59 06:59 14:59 Intake Total 130 10 118 Output Total 1075 650 Balance -945 640 118 Intake: IV 10 10 Invasive Line 2 10 10 Oral 120 118 Output: Urine 1075 650 Other: Voiding Method Urinal Urinal # Voids 1 # Bowel Movements 1 Weight 83.5 kg - Constitutional General appearance: average body habitus, no acute distress - EENT Eyes: anicteric sclerae, EOMI ENT: hearing grossly normal - Respiratory Respiratory: right: rales - Cardiovascular Rhythm: regular leg Peripheral Edema: bilateral: None - Gastrointestinal General gastrointestinal: soft, no tenderness - Integumentary Integumentary: no cyanotic - Musculoskeletal Musculoskeletal: generalized weakness - Psychiatric Psychiatric: A&O x's 3 Results CBC & Chem 7: 09/26/23 07:01 09/26/23 07:01 Labs: Abnormal Lab Results - Last 24 Hours (Table) 09/25/23 09/26/23 09/26/23 Range/Units 06:40 07:01 07:01 RBC 3.03 L (4.30-5.90) m/uL Hgb 9.2 L (13.0-17.5) gm/dL Hct 29.7 L (39.0-53.0) % RDW 16.9 H (11.5-15.5) % Lymphocytes # 0.8 L (1.0-4.8) k/uL Sodium 135 L (137-145) mmol/L Carbon Dioxide 31 H (22-30) mmol/L Calcium 8.0 L (8.4-10.2) mg/dL Procalcitonin 37.40 H (0.02-0.50) ng/mL Microbiology - Last 24 Hours (Table) 09/24/23 20:15 Blood Culture - Preliminary Blood 09/24/23 20:00 Blood Culture - Preliminary Blood Chest x-ray: report reviewed CT scan - chest: report reviewed CT Scan - head: report reviewed Assessment and Plan (1) Pleural effusion, left Current Visit: Yes Status: Acute Priority: High Code(s): J90 - PLEURAL EFFUSION, NOT ELSEWHERE CLASSIFIED SNOMED Code(s): 79171824 (2) Pneumonia Current Visit: Yes Status: Acute Priority: High Code(s): J18.9 - PNEUMONIA, UNSPECIFIED ORGANISM SNOMED Code(s): 252288787 (3) Lung cancer Current Visit: Yes Status: Acute Priority: High Code(s): C34.90 - MALIGNANT NEOPLASM OF UNSP PART OF UNSP BRONCHUS OR LUNG SNOMED Code(s): 107628239 Plan: Pneumonia, weakness -Admitted with progressing weakness, productive cough, dizziness, and confusion -CTA chest showed consolidative changes noted in the left lower lobe. Negative for pulmonary embolism. Cardiomegaly and moderate left pleural effusion -CT head negative for acute intracranial processes -Pulmonary and ID has seen pt. Started on IV abx and bronchodilators. No plan for left thoracentesis at this time Confusion -CT of the brain negative for acute process -Alert and oriented x 3 today, answering questions appropriately Mixed histology lung adenocarcinoma/NET -Diagnosis and treatment as stated in HPI -BRAF targeted therapy started in May. Pt has done well overall. -Treatment f/u PET/CT was obtained on 09/22/2023, which showed overall stable disease; of note patient has been off treatment for most of the last 1 month prior to PET scan due to repeat admissions/infections. -Continue to hold treatment while being treated for acute illness Attests: I have seen and examined pt, performed H&P, developed impression and plan of care. Discussed with dictator. Agree with documentation, dictated as a scribe.
[2023-09-26] MEDS: CEFEPIME 2 GM in SODIUM CHLORIDE 0.9% 100 ML IVPB SCH (20:27)
[2023-09-26 22:35] VITALS: TEMP 98.1
[2023-09-27 02:06] VITALS: RESP 18
[2023-09-27 07:17] LABS: Anisocytosis Slight; Basophils % (A) 1 %; Eosinophils # (A) 0.4 k/uL (0-0.7); Eosinophils % (A) 9 %; HGB 8.7 gm/dL (13.0-17.5); Hypochromasia Marked; Lymphocytes # (A) 0.9 k/uL (1.0-4.8); Lymphocytes % (A) 24 %; MCH 30.3 pg (25.0-35.0); MCV 97.8 fL (80.0-100.0); Macrocytosis Slight; Mean Platelet Volume 8.9; Monocytes # (A) 0.3 k/uL (0-1.0); Monocytes % (A) 7 %; Neutrophils # (A) 2.2 k/uL (1.3-7.7); Neutrophils % (A) 58 %; Platelet Count 142 k/uL (150-450); RBC 2.87 m/uL (4.30-5.90); RDW 16.7 % (11.5-15.5); WBC 3.8 k/uL (3.8-10.6)
[2023-09-27 08:10] LABS: African American GFR (CKD) 86 (>60 ml/min/1.73 sqM); Anion Gap 3 mmol/L; Blood Urea Nitrogen 11 mg/dL (9-20); Calcium 7.6 mg/dL (8.4-10.2); Carbon Dioxide 32 mmol/L (22-30); Chloride 101 mmol/L (98-107); Glucose 92 mg/dL (74-99); Non-African American GFR(CKD) 75 (>60 ml/min/1.73 sqM); Potassium 3.7 mmol/L (3.5-5.1); Sodium 136 mmol/L (137-145)
[2023-09-27] MEDS: VANCOMYCIN 1,750 MG in SODIUM CHLORIDE 0.9% 500 ML 500 ML IVPB SCH (09:34)
--- NOTE | 2023-09-27 12:51 | XR ---
EXAMINATION TYPE: XR chest 2V DATE OF EXAM: 09/27/2023 12:14 PM CLINICAL INDICATION:Male, 78 years old with history of pneumonia follow up; [facility] COMPARISON: Chest radiographs from 09/24/2023. TECHNIQUE: XR chest 2V Frontal and lateral views of the chest. FINDINGS: EKG wires project over the chest. Lungs/Pleura: Small to moderate left pleural effusion with atelectasis and/or consolidation in the le ft base. No pneumothorax. Pulmonary vascularity: Unremarkable. Heart/mediastinum: Cardiomediastinal silhouette is unremarkable. Musculoskeletal: No acute osseous pathology. Other findings: None Lines/Tubes: IMPRESSION: No acute cardiopulmonary disease/process.
[2023-09-27 12:56] VITALS: BP 137/62; PULSE 74
--- NOTE | 2023-09-27 13:25 | P.PN ---
Subjective Progress Note Date: 09/27/23 Principal diagnosis: Reason for follow-up is left-sided pneumonia/parapneumonic effusion Patient is a 78-year-old male with a past medical history significant for hypertension hyperlipidemia rheumatoid arthritis sleep apnea COPD reflux and depression presenting to the hospital for evaluation of weakness patient did have abnormal CT with evidence of moderate effusion and left-sided compressive atelectasis/consolidation with elevated procalcitonin. On today's evaluation that is 09/27/2023, Patient is afebrile patient is currently on 3 L current oxygen and denies having any shortness of breath, the patient denies any chest pain and cough has decreased in intensity mostly dry in nature, the patient denies any nausea vomiting did not have any abdominal pain and no diarrhea, patient feeling better wants to go home. Patient white count is 3.8, creatinine 0.7 blood culture negative sputum not collected Objective - Vital Signs Vital signs: Vital Signs Temp 98.1 F 09/27/23 09:10 Pulse 76 09/27/23 09:21 Resp 18 09/27/23 09:10 BP 140/70 09/27/23 09:10 Pulse Ox 99 09/27/23 09:13 FiO2 Intake & Output 09/26/23 09/27/23 09/27/23 18:59 06:59 18:59 Intake Total 914 20 368 Balance 914 20 368 Weight 83.5 kg Intake: IV 20 20 10 Invasive Line 2 20 20 10 Oral [id number] Other: Voiding Method Urinal Urinal Urinal - Exam GENERAL DESCRIPTION: An elderly male lying in bed in no distress RESPIRATORY SYSTEM: Unlabored breathing , decreased breath sounds at bases HEART: S1 S2 regular rate and rhythm , ABDOMEN: Soft , no tenderness EXTREMITIES: No edema feet - Labs CBC & Chem 7: 09/27/23 06:21 09/27/23 06:21 Labs: Abnormal Lab Results - Last 24 Hours (Table) 09/27/23 09/27/23 Range/Units 06:21 06:21 RBC 2.87 L (4.30-5.90) m/uL Hgb 8.7 L (13.0-17.5) gm/dL Hct 28.0 L (39.0-53.0) % RDW 16.7 H (11.5-15.5) % Plt Count 142 L (150-450) k/uL Lymphocytes # 0.9 L (1.0-4.8) k/uL Sodium 136 L (137-145) mmol/L Carbon Dioxide 32 H (22-30) mmol/L Calcium 7.6 L (8.4-10.2) mg/dL Microbiology - Last 24 Hours (Table) 09/24/23 20:15 Blood Culture - Preliminary Blood 09/24/23 20:00 Blood Culture - Preliminary Blood Assessment and Plan (1) Pneumonia Current Visit: Yes Status: Acute Priority: High Code(s): J18.9 - PNEUMONIA, UNSPECIFIED ORGANISM SNOMED Code(s): 871563773 (2) Sepsis Current Visit: Yes Status: Acute Code(s): A41.9 - SEPSIS, UNSPECIFIED ORGANISM SNOMED Code(s): 85475614 Plan: 1patient presented to hospital with generalized weakness no energy and this patient who did have features of SIRS with hypotension tachycardia and did have evidence of pneumonia medically clear for sepsis will need to cover for the both gram-positive as well as gram-negative pathogen 2-blood culture has been negative sputum was not collected apparently the patient has been cleared for discharge by pulmonary as per discussion with the admitting team asking for home antibiotics prescription for oral Avelox has been sent for the patient Dictation was produced using [employer] dictation software. please excuse any gr ammatical, word or spelling errors. Time with Patient: Less than 30
--- NOTE | 2023-09-27 14:29 | P.PN ---
Subjective Progress Note Date: 09/27/23 Principal diagnosis: Acute hypoxic respiratory failure with left pleural effusion and possible left lower lobe pneumonia/pneumonitis This is a 78-year-old male patient with a history of hypertension hyperlipidemia, mild intermittent chronic bronchial asthma, former smoker. 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 His treatment had been on pause due to frequent admissions to the hospital for weakness. He was most recently taking Braftovi and Mektovi prior to his admission earlier this month here. He had a follow-up PET scan on September 22, 2023 that revealed minimal response to therapy. Left lower lobe pulmonary nodule not significantly changed from previous. Decreasing FDG activity in the left perihilar activity as well as left pulmonary hilum lymph node. FDG activity within the osseous structures is mixed response and some decrease in FDG while others have increased. New small left pleural effusion. He was due to see Dr. Leigh 09/29/2023 for results of the PET scan. He was brought into the emergency room by EMS last evening due to profound weakness. He was too weak to even get up off the couch. He was also hypotensive when evaluated by EMS. Chest x-ray reveals left pleural effusion some atelectasis or consolidation in the left lung base. CT scan of the brain revealed no acute intracranial process. CT angiogram revealed consolidative changes in the left lower lobe most compatible with left lower lobe pneumonia. No central or peripheral pulmonary emboli detected. He is seen today in consultation on the regular medical floor. He is currently resting fairly co mfortably in bed. Awake and alert in no acute distress. Calcitonin 37.4. Troponin 0.101, 0.066, 0.050. White count 6.4. Hemoglobin 9.8. Platelets 156. D-dimer 0.95. Sodium 135. Potassium 4.0. Bicarb 30. BUN 17. Creatinine 1.58. Urinalysis clean. Viral screen negative. He is maintaining good O2 saturation in the mid 90s on 3 L/min per nasal cannula. He has been afebrile. Hemodynamically stable. He has received 4 L of IV fluid resuscitation. He has been initiated on vancomycin and Zosyn. Patient was evaluated on 09/26/2023, patient seems to be better today compared to yesterday, breathing easier, as a matter fact he is asking to be discharged home. On 3 L nasal cannula, O2 saturation 98%. WBC count is 4.3 hemoglobin 9.2 basic metabolic profile is normal BUN is 15 creatinine 1.22 procalcitonin level is extremely high at 37.40. Chest x-ray and CT of the chest were both reviewed, I suspect the patient has underlying left lower lobe pneumonia Patient was seen today on 09/27/23, feeling much better, on 3 L nasal cannula with O2 sats of 99%. Patient does not seem to be in any distress. Significantly better today compared to the day when he came in. Patient was cleared by infectious disease to be discharged on oral Avelox. WBC count is 3.8 hemoglobin 8.7 basic metabolic profile is normal and renal profile is normal procalcitonin level on admission was 37.4 Objective - Vital Signs Vital signs: Vital Signs Temp 98.1 F 09/27/23 09:10 Pulse 74 09/27/23 11:55 Resp 18 09/27/23 11:55 BP 137/62 09/27/23 11:55 Pulse Ox 99 09/27/23 11:55 FiO2 Intake & Output 09/26/23 09/27/23 09/27/23 18:59 06:59 18:59 Intake Total 914 20 918 Balance 914 20 918 Weight 83.5 kg Intake: IV 20 20 20 Invasive Line 2 20 20 20 Oral [id number] Other: Voiding Method Urinal Urinal Urinal # Voids 3 - Exam GENERAL EXAM: Revealed 78-year-old white male on 3 L nasal cannula, not in distress HEAD: Normocephalic. EYES: Normal reaction of pupils, equal size. NOSE: Clear with pink turbinates. THROAT: No erythema or exudates. NECK: No masses, no JVD. CHEST: No chest wall deformity. LUNGS: Crackles at the left base. No rhonchi no wheezes CVS: S1 and S2 normal with no audible murmur, regular rhythm. ABDOMEN: No hepatosplenomegaly, normal bowel sounds, no guarding or rigidity. SKIN: No rashes CENTRAL NERVOUS SYSTEM: Alert and oriented x 3 no gross focal deficit EXTREMITIES: There is no peripheral edema. No clubbing, no cyanosis. Peripheral pulses are intact. - Labs CBC & Chem 7: 09/27/23 06:21 09/27/23 06:21 Labs: Abnormal Lab Results - Last 24 Hours (Table) 09/27/23 09/27/23 Range/Units 06:21 06:21 RBC 2.87 L (4.30-5.90) m/uL Hgb 8.7 L (13.0-17.5) gm/dL Hct 28.0 L (39.0-53.0) % RDW 16.7 H (11.5-15.5) % Plt Count 142 L (150-450) k/uL Lymphocytes # 0.9 L (1.0-4.8) k/uL Sodium 136 L (137-145) mmol/L Carbon Dioxide 32 H (22-30) mmol/L Calcium 7.6 L (8.4-10.2) mg/dL Microbiology - Last 24 Hours (Table) 09/24/23 20:15 Blood Culture - Preliminary Blood 09/24/23 20:00 Blood Culture - Preliminary Blood Assessment and Plan Assessment: Impression: Acute hypoxic respiratory failure, multifactorial secondary to left pleural effusion, left lower lobe pneumonia, metastatic stage IV lung cancer and history of mild intermittent bronchial asthma. As well as underlying COPD Generalized weakness Chronic anemia Former smoker Benign essential hypertension Dyslipidemia Obstructive sleep apnea syndrome History of depression Recommendation: Continue present supportive care measures Consider discharge planning on oral antibiotics/Avelox continue bronchodilators Will continue to follow Time with Patient: Less than 30
[2023-09-27] MEDS ORDERED: CEFEPIME 2 GM in SODIUM CHLORIDE 0.9% 100 ML IVPB SCH (18:00)
[2023-09-28] MEDS ORDERED: VANCOMYCIN TROUGH DUE 1 EACH MISC MISCELLANE ONE (01:00)
== END 2023-09-27 15:03 | disposition home or self-care (01) | DRG 871 ==
LOC: EC 19:05 → 3SCARD 09-25 00:21
PROVIDERS: ADMIT Hospitalist; ATTEND Hospitalist
DX: A41.9 Sepsis, unspecified organism (principal); I50.33 Acute on chronic diastolic (congestive) heart failure; J96.01 Acute respiratory failure with hypoxia; J18.9 Pneumonia, unspecified organism; N17.9 Acute kidney failure, unspecified; C79.51 Secondary malignant neoplasm of bone; I24.89 Other forms of acute ischemic heart disease; J91.8 Pleural effusion in other conditions classified elsewhere; D84.81 Immunodeficiency due to conditions classified elsewhere; J44.0 Chronic obstructive pulmonary disease with (acute) lower respiratory infection; C78.7 Secondary malignant neoplasm of liver and intrahepatic bile duct; C34.32 Malignant neoplasm of lower lobe, left bronchus or lung; E87.1 Hypo-osmolality and hyponatremia; J98.11 Atelectasis; I11.0 Hypertensive heart disease with heart failure; D3A.8 Other benign neuroendocrine tumors; J45.20 Mild intermittent asthma, uncomplicated; D63.0 Anemia in neoplastic disease; E86.0 Dehydration; K21.9 Gastro-esophageal reflux disease without esophagitis; E78.5 Hyperlipidemia, unspecified; G47.33 Obstructive sleep apnea (adult) (pediatric); Z96.643 Presence of artificial hip joint, bilateral; Z79.51 Long term (current) use of inhaled steroids; Z87.891 Personal history of nicotine dependence; Z85.46 Personal history of malignant neoplasm of prostate; Z92.3 Personal history of irradiation; Z92.21 Personal history of antineoplastic chemotherapy; Z11.52 Encounter for screening for COVID-19; Z79.899 Other long term (current) drug therapy
CPT/HCPCS: 36415; 70450; 71046; 71275; 76604; 80048; 80053; 81003; 83605; 83880; 84145; 84484; 85025; 85379; 85610; 85730; 87040; 87081; 87636; 93005; 94640; 94760; 96361; 96365; 96366; 96367; 99291

== ENCOUNTER 2023-11-08 19:29 | Inpatient (IN) | payer MEDICARE ==
--- NOTE | 2023-11-08 19:45 | ED ---
SOB HPI - General Chief Complaint: Shortness of Breath Stated Complaint: GARCIA Time Seen by Provider: 11/08/23 19:42 Source: patient, RN notes reviewed, old records reviewed Mode of arrival: wheelchair Limitations: no limitations - History of Present Illness Initial Comments: This is a 78-year-old male to the ER for evaluation patient [facility] for evaluat ion of severe COPD dyspnea weakness not feeling well severe shortness of breath and poor historian here in the emergency department MD Complaint: shortness of breath, cough -: days(s) Severity: severe Severity scale (1-10): 10 Consistency: constant Improves With: nothing Worsens With: nothing Context: recent URI, anxiety, recent illness Associated Symptoms: denies other symptoms - Related Data Home Medications Medication Instructions Recorded Confirmed Pramipexole Di-HCl [Mirapex] 1.5 mg PO BID@0800,199901/03/14 11/08/23 allopurinoL [Zyloprim] 100 mg PO HS@199901/03/14 11/08/23 Albuterol Sulfate [Albuterol 1 - 2 puff INHALATION RT-Q4H PRN 04/15/23 11/08/23 Sulfate Hfa] Ergocalciferol (Vitamin D2) 1,250 mcg PO Q14D 04/15/23 11/08/23 [Drisdol (50,000 Iu)] Ferrous Sulfate [Iron (65 MG 975 mg PO DAILY@1400 04/15/23 11/08/23 Elemental)] Fluticasone Propion/Salmeterol 2 puff INHALATION RT-BID 04/15/23 11/08/23 [Advair 250-50 Diskus] Montelukast [Singulair] 10 mg PO HS@199904/15/23 11/08/23 Tamsulosin [Flomax] 0.4 mg PO DAILY@0800 04/15/23 11/08/23 carvediloL [Coreg] 3.125 mg PO BID@08,199904/15/23 11/08/23 Albuterol Nebulized [Ventolin 2.5 mg INHALATION RT-DAILY 09/08/23 11/08/23 Nebulized] Benralizumab [Fasenra] 30 mg SQ Q56D 09/08/23 11/08/23 Calcium Carbonate [Calcium] 600 mg PO BID@1400,199909/08/23 11/08/23 Cholecalciferol [Vitamin D3 (10 10 mcg PO BID@1400,199909/08/23 11/08/23 Mcg = 400 Iu)] Docusate Sodium 250 mg PO DAILY@0809/08/23 11/08/23 Omeprazole [PriLOSEC] 40 mg PO DAILY@79909/08/23 11/08/23 Zoledronic Acid [Zometa] 4 mg IV Q90D 09/08/23 11/08/23 Magnesium 250 mg PO DAILY@79909/25/23 11/08/23 Ondansetron Odt [Zofran ODT] 4 mg PO DAILY PRN 09/25/23 11/08/23 Furosemide [Lasix] 40 mg PO BID@0800,1400 11/08/23 11/08/23 HYDROcodone/APAP 10-325MG [[place] 1 tab PO Q6H PRN 11/08/23 11/08/23 10-325] Morphine Sulfate ER [Ms Contin] 30 mg PO BID PRN 11/08/23 11/08/23 Rosuvastatin Calcium [Crestor] 40 mg PO DAILY@79911/08/23 11/08/23 Previous Rx's Medication Instructions Recorded predniSONE [Deltasone] 40 mg PO DAILY 4 Days #8 tab 11/15/23 Allergies Allergy/AdvReac Type Severity Reaction Status Date / Time No Known Allergies Allergy Verified 11/08/23 20:21 Review of Systems ROS Statement: Those systems with pertinent positive or pertinent negative responses have been documented in the HPI. ROS Other: All systems not noted in ROS Statement are negative. Past Medical History Past Medical History: Asthma, Cancer, COPD, GERD/Reflux, Hyperlipidemia, Hypertension, Pneumonia, Prostate Disorder, Rheumatoid Arthritis (RA), Sleep Apnea/CPAP/BIPAP Additional Past Medical History / Comment(s): cardiomyopathy, anemia, lung cancer diagnosed 12/29/2022 (last chemo finished 08/21/23, last radiation 06/2023) History of Any Multi-Drug Resistant Organisms: None Reported Past Surgical History: Hernia Repair, Joint Replacement, Orthopedic Surgery Additional Past Surgical History / Comment(s): colonoscopy,EGD, Antonina hip replacments, antonina fx ankles, screws removed from rt ankle Past Anesthesia/Blood Transfusion Reactions: No Reported Reaction Past Psychological History: Depression Smoking Status: Former smoker Past Alcohol Use History: Occasional Past Drug Use History: None Reported General Exam Limitations: no limitations General appearance: alert, in no apparent distress, anxious, in distress Head exam: Present: atraumatic, normocephalic, normal inspection Eye exam: Present: normal appearance, PERRL, EOMI. Absent: scleral icterus, conjunctival injection, periorbital swelling ENT exam: Present: normal exam, mucous membranes moist Neck exam: Present: normal inspection. Absent: tenderness, meningismus, lymphadenopathy Respiratory exam: Present: respiratory distress, wheezes, accessory muscle use, decreased breath sounds, prolonged expiratory. Absent: rales, rhonchi, stridor Cardiovascular Exam: Present: regular rate, normal rhythm, normal heart sounds. Absent: systolic murmur, diastolic murmur, rubs, gallop, clicks GI/Abdominal exam: Present: soft, normal bowel sounds. Absent: distended, tenderness, guarding, rebound, rigid Extremities exam: Present: normal inspection, full ROM, normal capillary refill. Absent: tenderness, pedal edema, joint swelling, calf tenderness Back exam: Present: normal inspection Neurological exam: Present: alert, oriented X3, CN II-XII intact Psychiatric exam: Present: normal affect, normal mood Skin exam: Present: warm, dry, intact, normal color. Absent: rash Course Vital Signs 11/08/23 11/08/23 11/08/23 19:30 19:44 19:52 Temperature 99.1 F Pulse Rate 49 L 124 H 114 H Respiratory 22 19 Rate Blood Pressure 94/54 121/70 O2 Sat by Pulse 83 L 92 L Oximetry Fraction of Inspired Oxygen (FIO2) 11/08/23 11/08/23 11/08/23 20:01 20:53 20:58 Temperature Pulse Rate 112 H 108 H Respiratory 18 Rate Blood Pressure 102/60 O2 Sat by Pulse 92 L Oximetry Fraction of 50 Inspired Oxygen (FIO2) 11/08/23 11/08/23 11/09/23 22:00 23:48 00:04 Temperature 97.6 F Pulse Rate 113 H 116 H Respiratory 18 20 Rate Blood Pressure 115/71 62/42 O2 Sat by Pulse 94 L 100 Oximetry Fraction of Inspired Oxygen (FIO2) 11/09/23 00:40 Temperature Pulse Rate 90 Respiratory 19 Rate Blood Pressure 110/58 O2 Sat by Pulse 100 Oximetry Fraction of Inspired Oxygen (FIO2) - Reevaluation(s) Reevaluation #1: 11/08/23 19:47 Medical records reviewed Reevaluation #2: 11/08/23 19:47 Patient symptoms improved Reevaluation #3: 11/08/23 19:48 Patient informed of results and questions answered Reevaluation #4: Was pt. sent in by a medical professional or institution (, PA, BATCH MIXER OPERATOR, urgent care, hospital, or intermediate...) When possible be specific @ -no Did you speak to anyone other than the patient for history (EMS, parent, family, police, friend...)? What history was obtained from this source @ -no Did you review nursing and triage notes (agree or disagree)? Why? @ -agree Are old charts reviewed (outside hosp., previous admission, EMS record, old EKG, old radiological studies, urgent care reports/EKG's, intermediate records)? Report findings @ -yes Differential Diagnosis (chest pain, altered mental status, abdominal pain women, abdominal pain men, vaginal bleeding, weakness, fever, dyspnea, syncope, headache, dizziness, GI bleed, back pain, seizure, CVA, palpatations, mental he alth, musculoskeletal)? @ -prior EKG interpreted by me (3pts min.). @ -yes X-rays interpreted by me (1pt min.). @ -yes negative for acute disease CT interpreted by me (1pt min.). @ -no U/S interpreted by me (1pt. min.). @ -no What testing was considered but not performed or refused? (CT, X-rays, U/S, labs)? Why? @ -none What meds were considered but not given or refused? Why? @ -none Did you discuss the management of the patient with other professionals (professionals i.e. , DURAN, BATCH MIXER OPERATOR, lab, RT, psych nurse, social sciences lecturer, inspector rough castings, teacher, natural resource officer, case assembler)? Give summary @ -no Was smoking cessation discussed for >3mins.? @ -no Was critical care preformed (if so, how long)? @ -yes31 Were there social determinants of health that impacted care today? How? (Homelessness, low income, unemployed, alcoholism, drug addiction, transportation, low edu. Level, literacy, decrease access to med. care, fci, rehab)? @ -none Was there de-escalation of care discussed even if they declined (Discuss DNR or withdrawal of care, Hospice)? DNR status @ -no What co-morbidities impacted this encounter? (DM, HTN, Smoking, COPD, CAD, Cancer, CVA, ARF, Chemo, Hep., AIDS, mental health diagnosis, sleep apnea, morbid obesity)? @ -none Was patient admitted / discharged? Hospital course, mention meds given and route, prescriptions, significant lab abnormalities, going to OR and other pertinent info. @ - 78 male to the ER for evaluation for severe COPD exacerbation with respiratory distress Admitted for COPD exacerbation and respiratory failure Undiagnosed new problem with uncertain prognosis? @ -no Drug Therapy requiring intensive monitoring for toxicity (Heparin, Nitro, Insu jose, Cardizem)? @ -no Were any procedures done? @ -no Diagnosis/symptom? @ - Acute, or Chronic, or Acute on Chronic? @ -Acute Uncomplicated (without systemic symptoms) or Complicated (systemic symptoms)? @ -Complicated Side effects of treatment? @ -no Exacerbation, Progression, or Severe Exacerbation? @ -exacerbation Poses a threat to life or bodily function? How? (Chest pain, USA, MA, pneumonia, PE, COPD, DKA, ARF, appy, cholecystitis, CVA, Diverticulitis, Homicidal, Suicidal, threat to staff... and all critical care pts) @ -yes respiratory distress Reevaluation #5: Differential Dyspnea: Coronary syndrome, arrhythmia, tamponade, asthma, COPD, pulmonary embolism, pneumonia, pneumothorax, pulmonary effusion, anaphylaxis, diabetic ketoacidosis, flailed chest, pulmonary contusion, diaphragmatic rupture, anemia, neuromuscular, this is not meant to be an all-inclusive list. - Consultations Consultation #1: Spoke with admitting who agreed to admit this patient Medical Decision Making - Medical Decision Making 78 male to the ER for evaluation for severe COPD exacerbation with respiratory distress - Lab Data Result diagrams: 11/14/23 05:40 11/14/23 05:40 Lab Results 11/08/23 11/08/23 11/08/23 Range/Units 19:55 19:55 19:55 WBC 6.0 (3.8-10.6) k/uL RBC 4.16 L (4.30-5.90) m/uL Hgb 12.5 L D (13.0-17.5) gm/dL Hct 40.9 (39.0-53.0) % MCV 98.3 (80.0-100.0) fL MCH 30.1 (25.0-35.0) pg MCHC 30.7 L (31.0-37.0) g/dL RDW 17.9 H (11.5-15.5) % Plt Count 171 (150-450) k/uL MPV 8.7 Neutrophils % 59 % Lymphocytes % 29 % Monocytes % 8 % Eosinophils % 0 % Basophils % 0 % Neutrophils # 3.5 (1.3-7.7) k/uL Lymphocytes # 1.7 (1.0-4.8) k/uL Monocytes # 0.5 (0-1.0) k/uL Eosinophils # 0.0 (0-0.7) k/uL Basophils # 0.0 (0-0.2) k/uL Hypochromasia Marked Anisocytosis Slight Macrocytosis Slight PT 12.1 (10.0-12.5) sec INR 1.1 (<1.2) APTT 28.9 (22.0-30.0) sec D-Dimer 2.50 H (<0.60) mg/L FEU Sodium 137 (137-145) mmol/L Potassium 4.7 (3.5-5.1) mmol/L Chloride 106 (98-107) mmol/L Carbon Dioxide 25 (22-30) mmol/L Anion Gap 6 mmol/L BUN 27 H (9-20) mg/dL Creatinine 1.75 H (0.66-1.25) mg/dL Est GFR (CKD-EPI)AfAm 42 (>60 ml/min/1.73 sqM) Est GFR (CKD-EPI)NonAf 36 (>60 ml/min/1.73 sqM) Glucose 94 (74-99) mg/dL Calcium 8.8 (8.4-10.2) mg/dL Magnesium 1.9 (1.6-2.3) mg/dL Total Bilirubin 0.7 (0.2-1.3) mg/dL AST 221 H (17-59) U/L ALT 148 H (4-49) U/L Alkaline Phosphatase 140 H (38-126) U/L Troponin I (0.000-0.034) ng/mL NT-Pro-B Natriuret Pep 5450 pg/mL Total Protein 6.6 (6.3-8.2) g/dL Albumin 2.9 L (3.5-5.0) g/dL 11/08/23 Range/Units 19:55 WBC (3.8-10.6) k/uL RBC (4.30-5.90) m/uL Hgb (13.0-17.5) gm/dL Hct (39.0-53.0) % MCV (80.0-100.0) fL MCH (25.0-35.0) pg MCHC (31.0-37.0) g/dL RDW (11.5-15.5) % Plt Count (150-450) k/uL MPV Neutrophils % % Lymphocytes % % Monocytes % % Eosinophils % % Basophils % % Neutrophils # (1.3-7.7) k/uL Lymphocytes # (1.0-4.8) k/uL Monocytes # (0-1.0) k/uL Eosinophils # (0-0.7) k/uL Basophils # (0-0.2) k/uL Hypochromasia Anisocytosis Macrocytosis PT (10.0-12.5) sec INR (<1.2) APTT (22.0-30.0) sec D-Dimer (<0.60) mg/L FEU Sodium (137-145) mmol/L Potassium (3.5-5.1) mmol/L Chloride (98-107) mmol/L Carbon Dioxide (22-30) mmol/L Anion Gap mmol/L BUN (9-20) mg/dL Creatinine (0.66-1.25) mg/dL Est GFR (CKD-EPI)AfAm (>60 ml/min/1.73 sqM) Est GFR (CKD-EPI)NonAf (>60 ml/min/1.73 sqM) Glucose (74-99) mg/dL Calcium (8.4-10.2) mg/dL Magnesium (1.6-2.3) mg/dL Total Bilirubin (0.2-1.3) mg/dL AST (17-59) U/L ALT (4-49) U/L Alkaline Phosphatase (38-126) U/L Troponin I <0.012 (0.000-0.034) ng/mL NT-Pro-B Natriuret Pep pg/mL Total Protein (6.3-8.2) g/dL Albumin (3.5-5.0) g/dL - EKG Data -: EKG Interpreted by Me (EKG is sinus tachycardia 121 OR 140 QRS 82 QTc 46) - Radiology Data Radiology results: report reviewed (N chest x-ray is egative for acute disease), image reviewed Critical Care Time Critical Care Time: Yes Total Critical Care Time: 31 Disposition Clinical Impression: COPD (chronic obstructive pulmonary disease), Chest pain, Hypoxia, Hypotension, Pericardial effusion, Intractable nausea and vomiting, Abdominal pain of unknown etiology, Pneumonia, Weakness Disposition: ADMITTED IP TO THIS [facility] Condition: Fair
[2023-11-08] MEDS: SODIUM CHLORIDE 0.9% 1,000 ML IV STA (19:49)
[2023-11-08] MEDS: IPRATROPIUM-ALBUTEROL 3 ML NEB INHALATION STA ×2 (19:51→22:05)
[2023-11-08 20:07] LABS: Anisocytosis Slight; Basophils % (A) 0 %; Eosinophils % (A) 0 %; HCT 40.9 % (39.0-53.0); Hypochromasia Marked; Lymphocytes # (A) 1.7 k/uL (1.0-4.8); Lymphocytes % (A) 29 %; MCH 30.1 pg (25.0-35.0); MCHC 30.7 g/dL (31.0-37.0); MCV 98.3 fL (80.0-100.0); Macrocytosis Slight; Mean Platelet Volume 8.7; Monocytes # (A) 0.5 k/uL (0-1.0); Monocytes % (A) 8 %; Neutrophils # (A) 3.5 k/uL (1.3-7.7); Neutrophils % (A) 59 %; Platelet Count 171 k/uL (150-450); RBC 4.16 m/uL (4.30-5.90); RDW 17.9 % (11.5-15.5)
[2023-11-08 20:21] LABS: HGB 12.5 gm/dL (13.0-17.5)
[2023-11-08 20:23] LABS: INR 1.1 (<1.2); Partial Thromboplastin Time 28.9 sec (22.0-30.0); Prothrombin Time 12.1 sec (10.0-12.5)
[2023-11-08 20:25] LABS: ALT 148 U/L (4-49); AST 221 U/L (17-59); African American GFR (CKD) 42 (>60 ml/min/1.73 sqM); Albumin 2.9 g/dL (3.5-5.0); Alkaline Phosphatase 140 U/L (38-126); Anion Gap 6 mmol/L; Blood Urea Nitrogen 27 mg/dL (9-20); Calcium 8.8 mg/dL (8.4-10.2); Carbon Dioxide 25 mmol/L (22-30); Chloride 106 mmol/L (98-107); Glucose 94 mg/dL (74-99); Magnesium 1.9 mg/dL (1.6-2.3); Non-African American GFR(CKD) 36 (>60 ml/min/1.73 sqM); Potassium 4.7 mmol/L (3.5-5.1); Sodium 137 mmol/L (137-145); Total Bilirubin 0.7 mg/dL (0.2-1.3); Total Protein 6.6 g/dL (6.3-8.2)
[2023-11-08 20:33] LABS: NT-Pro-B-Type Natriuretic Pept 5450 pg/mL
--- NOTE | 2023-11-08 21:11 | XR ---
EXAMINATION TYPE: XR chest 1V portable DATE OF EXAM: 11/08/2023 COMPARISON: 09/27/2023 INDICATION: Short of breath TECHNIQUE: Single frontal view of the chest is obtained. FINDINGS: The heart size is normal. The pulmonary vasculature is normal. There is silhouetting the left diaphragm and increased density over the retrocardiac region. Correlat e for a posterior left lower lobe infiltrate. Small effusion may be present on the left. IMPRESSION: 1. Left lower lobe infiltrate and/or small left pleural effusion. Correlate for pneumonia and atelect asis. Follow-up is recommended.
[2023-11-08] MEDS ORDERED: PNEUMONIA PROTOCOL UTILIZED 1 EACH MISC PO PRN (21:31)
[2023-11-08] MEDS ORDERED: NALOXONE 0.4 MG/ML 1 ML VIAL IVP PRN (21:31)
[2023-11-08] MEDS: SODIUM CHLORIDE 0.9% 1,000 ML IV SCH (21:49)
[2023-11-08] MEDS: PIPERACILLIN-TAZOBACTAM 3.375 GM in SODIUM CHLORIDE 0.9% 100 ML IVPB STA (21:49)
[2023-11-08] MEDS: methylPREDNISolone SOD SUCCI 125 MG/2 ML VIAL IV STA (21:50)
[2023-11-08] MEDS: AZITHROMYCIN 500 MG in SODIUM CHLORIDE 0.9% 250 ML IVPB STA (23:16)
[2023-11-08] MEDS: methylPREDNISolone SOD SUCCI 125 MG/2 ML VIAL IV SCH (23:17)
[2023-11-09] MEDS: NOREPINEPHRINE 4 MG in SODIUM CHLORIDE 0.9% 250 ML IV SCH (00:08)
[2023-11-09] MEDS ORDERED: RX INFO: IV CONTRAST WAS GIVEN 1 EACH MISC MISCELLANE PRN (00:24)
[2023-11-09 00:58] LABS: Glucose,Whole Blood 85 mg/dL (70-110)
--- NOTE | 2023-11-09 01:00 | XR ---
EXAM: XR Chest, 1 View CLINICAL HISTORY: ITS.REASON XR Reason: INTUBATION TECHNIQUE: Frontal view of the chest. COMPARISON: No relevant prior studies available. FINDINGS: Lungs: Nonspecific airspace opacities in the mid and lower lung zones, left greater than right. Pleural space: Small right and moderate left layering pleural effusions. Heart: Mildly enlarged cardiac silhouette. Bones/joints: No acute fracture. No dislocation. Tubes, lines and devices: Endotracheal tube 2.5 cm from the júnior. Enteric tube extends to the stomach. IMPRESSION: 1. Nonspecific airspace opacities in the mid and lower lung zones, left greater than right. 2. Small right and moderate left layering pleural effusions. 3. Mildly enlarged cardiac silhouette. 4. Endotracheal tube 2.5 cm from the júnior. Enteric tube extends to the stomach.
--- NOTE | 2023-11-09 01:01 | CT ---
EXAM: CT Head Without and With Intravenous Contrast CLINICAL HISTORY: ITS.REASON CT Reason: intuabted TECHNIQUE: Axial computed tomography images of the head/brain without and with intravenous contrast. CTDI is 18 mGy and DLP is 259 mGy-cm. This CT exam was performed using one or more of the following dose reduction techniques: automated exposure control, adjustment of the mA and/or kV according to patient size, and/or use of iterative reconstruction technique. COMPARISON: No relevant prior studies available. FINDINGS: Brain: Volume loss and mild chronic small vessel ischemic change. Moore- white matter differentiation maintained. No hemorrhage, mass-effect, or parenchymal edema. No midline shift. No abnormal enhancement. Ventricles: Unremarkable. No hydrocephalus. Bones/joints: Unremarkable. No acute fracture. Soft tissues: Unremarkable. Vasculature: Intracranial atherosclerosis. Sinuses: Unremarkable as visualized. Mastoid air cells: Unremarkable as visualized. No mastoid effusion. Orbits: Lens replacements. Tubes, lines and devices: Patient is intubated. IMPRESSION: No acute intracranial process.
[2023-11-09 01:07] LABS: ABG HCO3 26 mmol/L (21-25); ABG Oxygen Saturation 98.3 % (94-97); ABG PCO2 63 mmHg (35-45); ABG PH 7.21 (7.35-7.45); ABG PO2 118 mmHg (83-108); ABG TCO2 28 mmol/L (19-24); Allen Test Performed? Yes
[2023-11-09] MEDS: SODIUM CHLORIDE 0.9% 1,000 ML IV ONE (01:52)
--- NOTE | 2023-11-09 01:57 | CT ---
EXAM: CT Angiography Chest With Intravenous Contrast CLINICAL HISTORY: ITS.REASON CT Reason: PULMONARY EMBOLUS TECHNIQUE: Axial computed tomographic angiography images of the chest with intravenous contrast. CTDI is 18.9 mGy and DLP is 259 mGy-cm. This CT exam was performed using one or more of the following dose reduction techniques: automated exposure control, adjustment of the mA and/or kV according to patient size, and/or use of iterative reconstruction technique. MIP reconstructed images were created and reviewed. COMPARISON: 09/25/23 FINDINGS: Pulmonary arteries: Suboptimal pulmonary artery opacification. No obvious central embolism. Study nondiagnostic for exclusion of distal emboli. Aorta: Thoracic aortic atherosclerosis without aneurysm or dissection. Lungs: Emphysema. Compressive atelectasis in the bilateral dependent lung garcia, left greater than right. No mass. Pleural space: Moderate left and small right pleural effusions. No pneumothorax. Heart: Large pericardial effusion measuring 1.6 cm. Coronary artery atherosclerosis. No cardiomegaly. No RV strain. Bones/joints: Possible pathologic fracture through the left acromion. Osteopenia. Diffuse idiopathic skeletal hyperostosis. 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 No dislocation. Soft tissues: Unremarkable. Lymph nodes: Unremarkable. No enlarged lymph nodes. Upper abdomen: Multiple bilateral renal cysts, some appearing simple, others not well characterized. Tubes, lines and devices: Endotracheal tube terminates above the júnior. Enteric tube extends to the stomach. IMPRESSION: 1. Large pericardial effusion measuring 1.6 cm. 2. Suboptimal pulmonary artery opacification. No obvious central embolism. Study nondiagnostic for exclusion of distal emboli. 3. No RV strain. 4. 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 Possible pathologic fracture through the left acromion. 5. Moderate left and small right pleural effusions. 6. Compressive atelectasis in the bilateral dependent lung garcia, left greater than right.
[2023-11-09 03:53] LABS: Glucose,Whole Blood 147 mg/dL (70-110)
--- NOTE | 2023-11-09 04:50 | P.EN ---
A- team: Indication: Unresponsiveness Arrived on Scene to find: Comatose patient, minimally arousable to sternal rub, manually bagged by RT Vital signs reviewed: BP 62/42, pulse 116, SpO2 100% while mechanically bagged, with temp 97 F Patient seen and examined at bedside. General: [non toxic], [no distress], [appears at stated age] Derm: [warm], [dry] Head: [atraumatic], [normocephalic], [symmetric] Eyes: [anicteric sclera] Mouth: [no lip lesion], [mucus membranes moist] Cardiovascular: [S1S2 reg], [no murmur], [positive posterior tibial pulse bilateral], 2+ bilateral lower extremity pitting edema Lungs: Diffuse wheezing with some coarse breath sounds appreciated, [no accessory muscle use] Abdominal: [soft], [no appreciable organomegaly] Ext: [no gross muscle atrophy], [no contractures] Neuro: Unable to assess, patient minimally responsive to noxious stimuli Psych: Comatose, unresponsive to noxious stimuli Assessment: Respiratory arrest, in setting of community-acquired pneumonia and lung cancer with suspected acute asthma exacerbation Shock, unclear etiology Elevated D-dimer Plan: The patient was intubated by the [employer] P[employer] MACHINE OPERATOR CT angiogram chest was ordered to rule out PE CT brain was also ordered Patient's family was notified regarding the patient's change in condition Primary team was also notified by the RN Intensive care consulted Levophed initiated along with ventilator bundle Continue with broad-spectrum IV antibiotics with Zosyn along with azithromycin Continue IV fluids normal saline 100 cc/h Continue IV steroids with Solu-Medrol 60 mg every 6 hourly Follow-up blood cultures Disposition: MICU A Total of 50 minutes of critical care time was spent on the complex care of this patient.
[2023-11-09 05:50] LABS: ABG Base Excess -1.8 mmol/L; ABG HCO3 23 mmol/L (21-25); ABG Oxygen Saturation 98.8 % (94-97); ABG PCO2 40 mmHg (35-45); ABG PH 7.38 (7.35-7.45); ABG PO2 109 mmHg (83-108); ABG TCO2 24 mmol/L (19-24); Allen Test Performed? Yes
--- NOTE | 2023-11-09 05:51 | P.CNPUL ---
History of Present Illness Consult date: 11/09/23 Requesting physician: Kj Nixon Reason for consult: COPD Chief complaint: Shortness of breath History of present illness: This is a 78-year-old male patient with a history of hypertension hyperlipidemia, mild intermittent bronchial asthma, former smoker. 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 Most recently taking Braftovi and Mektovi, and also Zometa infusions. Established Oncologist is Dr. Leigh. He had a follow-up PET scan on September 22, 2023 that revealed minimal response to therapy. Left lower lobe pulmonary nodule not significantly changed from previous. Decreasing FDG activity in the left perihilar activity as well as left pulmonary hilum lymph node. FDG activity within the osseous structures is mixed response and some decrease in FDG while others have increased. New small left pleural effusion. Of note, patient recently treated inpatient for left lower lobe pneumonia in August,. Discharged on 09/27/23 with course of Moxifloxacin. Patient apparently presented back to the ED late last night with a chief complaint of dyspnea. Currently, intubated and unable to provide information for HPI. Family is present at bedside, stating that the patient was not acting himself at home. Reportedly intermittently confused over the last 2 weeks. Also, noted to be more short of breath and usual. Initial chest x-ray showing a persistent left lower lobe infiltrate and/or small left pleural effusion. Patient was admitted with a diagnosis of pneumonia. Late last night, soon after his admission, patient was found unresponsive with agonal breathing pattern. Patient's family was contacted, apparently he is a full code. I recommended that the patient be intubated. SUPERVISOR OF [employer]EARCH presented at the bedside performed rapid sequence intubation. He was then transferred to the intensive care unit. Initial blood gas consistent with hypercapnic respiratory failure. PaO2 118, pCO2 of 63, pH of 7.21. This is done with initial ventilator settings of assist-control, respiratory rate 18, tidal volume 450, FiO2 of 100%, and PEEP of 5. Respiratory rate was increased to 24. Weaned FiO2 down to 80%. He is currently synchronous mechanical ventilator, sedated on propofol at 25 mcg/kg/min. No significant endotracheal secretions. Peak pressures are low at 18. Follow-up chest x-ray shows endotracheal tube about 2.5 cm from the júnior. Orogastric tube extends with into the stomach. Bilateral pleural effusions, greater on the left. Nonspecific airspace opacities in the mid and lower lung zones bilaterally left greater than right. Compressive atelectasis versus infective infiltrates. Patient is currently empirically covered on antibiotics in the form of azithromycin and Zosyn. He is afebrile. He is hypotensive, currently requiring norepinephrine which is infusing at 0.14 mcg/kg/min. Arterial line was established by SUPERVISOR OF [employer]EARCH. CBC: WBC count 6, hemoglobin 12.5, hematocrit 40.9, platelets 171. CMP: Sodium 137, potassium 4.7, chloride 106, serum bicarb 25, BUN 27, creatinine 1.75, glucose 94. LFTs mildly elevated. NT proBNP elevated at 5450. Troponin less than 0.012. D-dimer was elevated at 2.[address] angio protocol was initiated. Poor contrast bolus timing, however, no obvious saddle pulmonary embolism identified. Large pericardial effusion measuring 1.6 cm. He has bilateral pleural effusions left greater than right, with associated bilateral compressive atelectasis versus infiltrates. 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 Brain CT was also done while downstairs, no acute intracranial process noted. Review of Systems ROS unobtainable: due to endotracheal tube Past Medical History Past Medical History: Asthma, Cancer, COPD, GERD/Reflux, Hyperlipidemia, Hypertension, Pneumonia, Prostate Disorder, Rheumatoid Arthritis (RA), Sleep Apnea/CPAP/BIPAP Additional Past Medical History / Comment(s): cardiomyopathy, anemia, lung cancer diagnosed 12/29/2022 (last chemo finished 08/21/23, last radiation 06/2023) History of Any Multi-Drug Resistant Organisms: None Reported Past Surgical History: Hernia Repair, Joint Replacement, Orthopedic Surgery Additional Past Surgical History / Comment(s): colonoscopy,EGD, Antonina hip replacments, antonina fx ankles, screws removed from rt ankle Past Anesthesia/Blood Transfusion Reactions: No Reported Reaction Past Psychological History: Depression Smoking Status: Former smoker Past Alcohol Use History: Occasional Past Drug Use History: None Reported Medications and Allergies Home Medications Medication Instructions Recorded Confirmed Type Pramipexole Di-HCl [Mirapex] 1.5 mg PO BID@0800,199901/03/14 11/08/23 History allopurinoL [Zyloprim] 100 mg PO HS@199901/03/14 11/08/23 History Albuterol Sulfate [Albuterol 1 - 2 puff INHALATION RT-Q4H PRN 04/15/23 11/08/23 History Sulfate Hfa] Ergocalciferol (Vitamin D2) 1,250 mcg PO Q14D 04/15/23 11/08/23 History [Drisdol (50,000 Iu)] Ferrous Sulfate [Iron (65 MG 975 mg PO DAILY@139904/15/23 11/08/23 History Elemental)] Fluticasone Propion/Salmeterol 2 puff INHALATION RT-BID 04/15/23 11/08/23 History [Advair 250-50 Diskus] Montelukast [Singulair] 10 mg PO HS@199904/15/23 11/08/23 History Tamsulosin [Flomax] 0.4 mg PO DAILY@79904/15/23 11/08/23 History carvediloL [Coreg] 3.125 mg PO BID@799,199904/15/23 11/08/23 History Binimetinib [Mektovi] 30 mg PO BID 06/08/23 11/08/23 History Encorafenib [Braftovi] 75 mg PO BID 06/08/23 11/08/23 History Albuterol Nebulized [Ventolin 2.5 mg INHALATION RT-DAILY 09/08/23 11/08/23 History Nebulized] Benralizumab [Fasenra] 30 mg SQ Q56D 09/08/23 11/08/23 History Calcium Carbonate [Calcium] 600 mg PO BID@1399,199909/08/23 11/08/23 History Cholecalciferol [Vitamin D3 (10 10 mcg PO BID@1400,199909/08/23 11/08/23 History Mcg = 400 Iu)] Docusate Sodium 250 mg PO DAILY@79909/08/23 11/08/23 History Omeprazole [PriLOSEC] 40 mg PO DAILY@79909/08/23 11/08/23 History Zoledronic Acid [Zometa] 4 mg IV Q90D 09/08/23 11/08/23 History Magnesium 250 mg PO DAILY@79909/25/23 11/08/23 History Ondansetron Odt [Zofran ODT] 4 mg PO DAILY PRN 09/25/23 11/08/23 History Furosemide [Lasix] 40 mg PO BID@0800,1400 11/08/23 11/08/23 History HYDROcodone/APAP 10-325MG [[place] 1 tab PO Q6H PRN 11/08/23 11/08/23 History 10-325] Morphine Sulfate ER [Ms Contin] 30 mg PO BID PRN 11/08/23 11/08/23 History Rosuvastatin Calcium [Crestor] 40 mg PO DAILY@0800 11/08/23 11/08/23 History Allergies Allergy/AdvReac Type Severity Reaction Status Date / Time No Known Allergies Allergy Verified 11/08/23 20:21 Physical Exam Vitals: Vital Signs Temp Pulse Resp BP Pulse Ox FiO2 11/09/23 01:10 80 11/09/23 00:59 100 11/09/23 00:40 90 19 110/58 100 11/09/23 00:04 116 H 20 62/42 100 11/08/23 23:48 97.6 F 11/08/23 22:00 113 H 18 115/71 94 L 11/08/23 20:58 108 H 18 102/60 92 L 11/08/23 20:53 50 11/08/23 20:01 112 H 11/08/23 19:52 114 H 11/08/23 19:44 124 H 19 121/70 92 L 11/08/23 19:30 99.1 F 49 L 22 94/54 83 L Intake and Output 11/08/23 11/08/23 11/09/23 14:59 22:59 06:59 Intake Total 19.337 Balance 19.337 Intake: Intake, IV Titration 19.337 Amount Norepinephrine 4 mg In 17.786 Sodium Chloride 0.9% 250 ml @ 0.03 MCG/KG/MIN 9. 851 mls/hr IV .Q24H [facility] Rx#:[id number] propofoL 1,000 mg In 1.551 Empty Bag 1 bag @ 15 MCG/ KG/MIN 7.757 mls/hr IV . [id number] [facility] Rx#:[id number] Other: Weight 86.183 kg GENERAL EXAM: Sedated, unresponsive, gross anasarca, intubated on the mechanical ventilator. Synchronous with current set rate. HEAD: Normocephalic and atraumatic EYES: Sluggish reaction of pupils, equal size. NOSE: Clear with pink turbinates. THROAT: No erythema or exudates. NECK: No masses, no JVD. CHEST: No chest wall deformity. LUNGS: Equal air entry with diminished bibasilar lung sounds. Intubated to mechanical ventilator. Synchronous. No significant endotracheal secretions. Peak pressures 18. CVS: S1 and S2 normal with no audible murmur, regular rhythm. No extra heart sounds ABDOMEN: No hepatosplenomegaly, active bowel sounds, no guarding or rigidity. SPINE: No scoliosis or deformity SKIN: No rashes CENTRAL NERVOUS SYSTEM: No focal deficits, tone is normal in all 4 extremities. EXTREMITIES: There bilateral upper and lower extremity pitting edema, 1-2+. No clubbing, or cyanosis. Peripheral pulses are intact. Results - Laboratory Findings CBC and BMP: 11/08/23 19:55 11/08/23 19:55 ABG ABG pH 7.21 (7.35-7.45) L 11/09/23 01:03 ABG pCO2 63 mmHg (35-45) H 11/09/23 01:03 ABG pO2 118 mmHg (83-108) H 11/09/23 01:03 ABG O2 Saturation 98.3 % (94-97) H 11/09/23 01:03 PT/INR, D-dimer PT 12.1 sec (10.0-12.5) 11/08/23 19:55 INR 1.1 (<1.2) 11/08/23 19:55 D-Dimer 2.50 mg/L FEU (<0.60) H 11/08/23 19:55 Abnormal lab findings: Abnormal Labs 11/08/23 11/08/23 11/08/23 19:55 19:55 19:55 RBC 4.16 L Hgb 12.5 L D MCHC 30.7 L RDW 17.9 H D-Dimer 2.50 H ABG pH ABG pCO2 ABG pO2 ABG HCO3 ABG Total CO2 ABG O2 Saturation Hemoglobin BUN 27 H Creatinine 1.75 H AST 221 H ALT 148 H Alkaline Phosphatase 140 H Albumin 2.9 L 11/09/23 01:03 RBC Hgb MCHC RDW D-Dimer ABG pH 7.21 L ABG pCO2 63 H ABG pO2 118 H ABG HCO3 26 H ABG Total CO2 28 H ABG O2 Saturation 98.3 H Hemoglobin 11.0 L BUN Creatinine AST ALT Alkaline Phosphatase Albumin - Diagnostic Findings Chest x-ray: image reviewed CT scan - chest: image reviewed Assessment and Plan Assessment: Acute hypoxemic and hypercapnic respiratory failure, multifactorial secondary to bilateral pleural effusions with likely associated compressive atelectasis vs infectious process, metastatic stage IV lung cancer, and possible asthma/copd exacerbation Acute hypotension, following intubation, currently being fluid resuscitated and now on vasopressors. Elevated D-dimer, CT angio protocol, no obvious saddle pulmonary embolism. Large pericardial effusion, measuring 1.[address]; most recent echocardiogram done on previous admission 09/08/2023 estimating a preserved left ventricular ejection fraction of 55 to 60%, mild to moderate aortic stenosis, and small pericardial effusion without tamponade physiology. Acute kidney injury secondary to hypotension and ATN Stage IV non-small cell lung cancer, currently on Braftovi and Mektovi. Chronic anemia History of hypertension History of hyperlipidemia History of obstructive sleep apnea Former tobacco dependence Plan: Patient's medications, labs, imaging reviewed Patient will be transferred to the intensive care unit. Will continue on the mechanical ventilator, increased respiratory rate to 24, wean FiO2 as tolerated. Postintubation chest x-ray noted, endotracheal tube 2.5 cm above the júnior. Orogastric tube extending into the stomach. Ventilator order set added. Continue sedation with propofol with ordered RASS of 0 to -1 Hypotension refractory to fluid resuscitation, currently on norepinephrine at 0.09 mcg/kg/min. Continue with empiric antibiotics Appropriate cultures are pending. Obtain repeat transthoracic echocardiogram Oncology Consulted. Protonix for GI prophylaxis Heparin for DVT prophylaxis We will continue to follow I have personally seen and examined the patient, performed the documentation and the assessment and plan as written. Number of minutes spent on the visit:20 Time with Patient: Greater than 30
[2023-11-09] MEDS: methylPREDNISolone SOD SUCCI 125 MG/2 ML VIAL IV SCH (05:58)
[2023-11-09] MEDS: PIPERACILLIN-TAZOBACTAM 3.375 GM in SODIUM CHLORIDE 0.9% 100 ML IVPB SCH (05:59)
[2023-11-09 06:30] LABS: Anisocytosis Slight; Basophils % (A) 0 %; Eosinophils % (A) 0 %; HCT 34.7 % (39.0-53.0); HGB 10.7 gm/dL (13.0-17.5); Hypochromasia Marked; Lymphocytes # (A) 0.9 k/uL (1.0-4.8); Lymphocytes % (A) 9 %; MCH 30.7 pg (25.0-35.0); MCHC 30.8 g/dL (31.0-37.0); MCV 99.6 fL (80.0-100.0); Macrocytosis Slight; Monocytes # (A) 0.3 k/uL (0-1.0); Monocytes % (A) 3 %; Neutrophils # (A) 7.8 k/uL (1.3-7.7); Neutrophils % (A) 86 %; Platelet Count 196 k/uL (150-450); RBC 3.49 m/uL (4.30-5.90); WBC 9.1 k/uL (3.8-10.6)
[2023-11-09 07:26] LABS: African American GFR (CKD) 39 (>60 ml/min/1.73 sqM); Anion Gap 5 mmol/L; Blood Urea Nitrogen 29 mg/dL (9-20); Calcium 7.7 mg/dL (8.4-10.2); Carbon Dioxide 22 mmol/L (22-30); Chloride 113 mmol/L (98-107); Glucose 116 mg/dL (74-99); Non-African American GFR(CKD) 34 (>60 ml/min/1.73 sqM); Potassium 4.2 mmol/L (3.5-5.1); Sodium 140 mmol/L (137-145)
--- NOTE | 2023-11-09 07:42 | P.CRDCN ---
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 The patient was seen in the ICU and currently is intubated on mechanical ventilation and the history was taken from the chart and nurse taking care of the patient. The patient presented with increasing shortness of breath with no symptoms of chest pain or chest discomfort or dizziness or lightheadedness or presyncope or syncope. He was found to be in acute respiratory distress and he underwent intubation in the emergency department subsequently he was placed on mechanical ventilation and admitted to the intensive care unit. He underwent further investigation including an EKG and that showed sinus mechanism and subsequently chest x-ray showed cardiomegaly. Subsequently CT scan of the chest was performed and showed large pericardial effusion with moderate pleural effusion. The patient currently is hemodynamically unstable and requiring small dose of norepinephrine. We are going to obtain an echocardiogram as soon as possible and if he does have any evidence of tamponade physiology the patient need to undergo pericardial window and not pericardiocentesis just because of the nature of the pericardial effusion which is malignant and likely to be recurrent. The physical examination is remarkable for regular rate and rhythm with a distant h eart sounds and a soft systolic murmur at the right upper sternal border with diminished breathing sounds bilaterally and no edema was noted in the lower extremities Assessment Acute hypoxic respiratory failure Large pericardial effusion on the CT scan Bilateral pleural effusion Adenocarcinoma of the lung with metastasis to liver and bone Multiple comorbid conditions Acute renal failure Plan Continue hemodynamic support Obtain an echocardiogram stat Consider pericardial window if there is evidence of tamponade Follow-up with the patient Past Medical History Past Medical History: Asthma, Cancer, COPD, GERD/Reflux, Hyperlipidemia, Hypertension, Pneumonia, Prostate Disorder, Rheumatoid Arthritis (RA), Sleep Apnea/CPAP/BIPAP Additional Past Medical History / Comment(s): cardiomyopathy, anemia, lung cancer diagnosed 12/29/2022 (last chemo finished 08/21/23, last radiation 06/2023) History of Any Multi-Drug Resistant Organisms: None Reported Past Surgical History: Hernia Repair, Joint Replacement, Orthopedic Surgery Additional Past Surgical History / Comment(s): colonoscopy,EGD, Scotty hip replacments, scotty fx ankles, screws removed from rt ankle Past Anesthesia/Blood Transfusion Reactions: No Reported Reaction Past Psychological History: Depression Smoking Status: Former smoker Past Alcohol Use History: Occasional Past Drug Use History: None Reported Medications and Allergies Home Medications Medication Instructions Recorded Confirmed Type Pramipexole Di-HCl [Mirapex] 1.5 mg PO BID@08,199901/03/14 11/08/23 History allopurinoL [Zyloprim] 100 mg PO HS@199901/03/14 11/08/23 History Albuterol Sulfate [Albuterol 1 - 2 puff INHALATION RT-Q4H PRN 04/15/23 11/08/23 History Sulfate Hfa] Ergocalciferol (Vitamin D2) 1,250 mcg PO Q14D 04/15/23 11/08/23 History [Drisdol (50,000 Iu)] Ferrous Sulfate [Iron (65 MG 975 mg PO DAILY@1400 04/15/23 11/08/23 History Elemental)] Fluticasone Propion/Salmeterol 2 puff INHALATION RT-BID 04/15/23 11/08/23 H istory [Advair 250-50 Diskus] Montelukast [Singulair] 10 mg PO HS@199904/15/23 11/08/23 History Tamsulosin [Flomax] 0.4 mg PO DAILY@0800 04/15/23 11/08/23 History carvediloL [Coreg] 3.125 mg PO BID@799,199904/15/23 11/08/23 History Binimetinib [Mektovi] 30 mg PO BID 06/08/23 11/08/23 History Encorafenib [Braftovi] 75 mg PO BID 06/08/23 11/08/23 History Albuterol Nebulized [Ventolin 2.5 mg INHALATION RT-DAILY 09/08/23 11/08/23 History Nebulized] Benralizumab [Fasenra] 30 mg SQ Q56D 09/08/23 11/08/23 History Calcium Carbonate [Calcium] 600 mg PO BID@1400,199909/08/23 11/08/23 History Cholecalciferol [Vitamin D3 (10 10 mcg PO BID@1400,199909/08/23 11/08/23 Histo ry Mcg = 400 Iu)] Docusate Sodium 250 mg PO DAILY@79909/08/23 11/08/23 History Omeprazole [PriLOSEC] 40 mg PO DAILY@79909/08/23 11/08/23 History Zoledronic Acid [Zometa] 4 mg IV Q90D 09/08/23 11/08/23 History Magnesium 250 mg PO DAILY@79909/25/23 11/08/23 History Ondansetron Odt [Zofran ODT] 4 mg PO DAILY PRN 09/25/23 11/08/23 History Furosemide [Lasix] 40 mg PO BID@0800,1400 11/08/23 11/08/23 History HYDROcodone/APAP 10-325MG [[place] 1 tab PO Q6H PRN 11/08/23 11/08/23 History 10-325] Morphine Sulfate ER [Ms Contin] 30 mg PO BID PRN 11/08/23 11/08/23 History Rosuvastatin Calcium [Crestor] 40 mg PO DAILY@79911/08/23 11/08/23 History Allergies Allergy/AdvReac Type Severity Reaction Status Date / Time No Known Allergies Allergy Verified 11/08/23 20:21 Physical Exam Vitals: Vital Signs Temp Pulse Resp BP Pulse Ox FiO2 11/09/23 07:00 65 24 100 11/09/23 06:45 74 24 100 11/09/23 06:30 66 24 100 11/09/23 06:15 69 24 100 11/09/23 06:00 63 24 100 11/09/23 05:45 66 24 100 11/09/23 05:30 65 24 100 11/09/23 05:15 65 24 100 11/09/23 05:00 67 24 100 11/09/23 04:45 68 24 100 11/09/23 04:30 67 24 100 11/09/23 04:15 66 24 100 11/09/23 04:00 68 24 100 100 11/09/23 03:45 63 24 107/35 100 11/09/23 03:33 60 11/09/23 03:30 65 24 107/35 100 60 11/09/23 03:15 64 24 107/35 100 11/09/23 03:00 65 24 107/35 100 11/09/23 02:45 66 24 107/35 100 11/09/23 02:30 66 24 107/35 100 11/09/23 02:15 67 24 107/35 100 11/09/23 02:00 77 24 107/35 100 100 11/09/23 01:45 76 24 107/35 100 11/09/23 01:30 82 24 107/35 100 11/09/23 01:15 86 24 107/35 99 11/09/23 01:10 80 11/09/23 01:00 98.8 F 84 24 107/35 100 60 11/09/23 00:59 100 11/09/23 00:40 90 19 110/58 100 11/09/23 00:04 116 H 20 62/42 100 11/08/23 23:48 97.6 F 11/08/23 22:00 113 H 18 115/71 94 L 11/08/23 20:58 108 H 18 102/60 92 L 11/08/23 20:53 50 11/08/23 20:01 112 H 11/08/23 19:52 114 H 11/08/23 19:44 124 H 19 121/70 92 L 11/08/23 19:30 99.1 F 49 L 22 94/54 83 L Intake and Output 11/08/23 11/09/23 11/09/23 22:59 06:59 14:59 Intake Total 1803.382 213.123 Output Total 325 30 Balance 1478.382 183.123 Intake: IV 1600 100 Sodium Chloride 0.9% 1, 600 100 000 ml @ 100 mls/hr IV . Q10H [facility] Rx#:[id number] Sodium Chloride 0.9% 1, 1000 000 ml @ 999 mls/hr IV . Q1H1M ONE Rx#:[id number] Intake, IV Titration 203.382 113.123 Amount Norepinephrine 4 mg In 201.831 28.02 Sodium Chloride 0.9% 250 ml @ 0.03 MCG/KG/MIN 9. 851 mls/hr IV .Q24H [facility] Rx#:[id number] propofoL 1,000 mg In 1.551 85.103 Empty Bag 1 bag @ 15 MCG/ KG/MIN 7.757 mls/hr IV . [id number] [facility] Rx#:[id number] Output: Urine 325 30 Other: Voiding Method Indwelling Catheter Weight 86.183 kg 92.3 kg ABP, PAP, CO, CI - Last 8 Hours Arterial Blood Pressure 114/46 Arterial Blood Pressure 111/50 Arterial Blood Pressure 113/47 Arterial Blood Pressure 93/44 Arterial Blood Pressure 121/49 Arterial Blood Pressure 104/44 Arterial Blood Pressure 94/49 Arterial Blood Pressure 92/45 Arterial Blood Pressure 104/48 Arterial Blood Pressure 91/49 Arterial Blood Pressure 95/51 Arterial Blood Pressure 91/56 Arterial Blood Pressure 113/54 Arterial Blood Pressure 111/53 Arterial Blood Pressure 111/61 Arterial Blood Pressure 110/50 Arterial Blood Pressure 111/55 Arterial Blood Pressure 113/50 Arterial Blood Pressure 108/50 Arterial Blood Pressure 120/56 Arterial Blood Pressure 114/54 Arterial Blood Pressure 121/48 Arterial Blood Pressure 100/46 Arterial Blood Pressure 90/39 Arterial Blood Pressure 100/42 Results 11/09/23 06:00 11/09/23 06:52 Cardiac Enzymes 11/08/23 11/08/23 Range/Units 19:55 19:55 AST 221 H (17-59) U/L Troponin I <0.012 (0.000-0.034) ng/mL Coagulation 11/08/23 Range/Units 19:55 PT 12.1 (10.0-12.5) sec APTT 28.9 (22.0-30.0) sec CBC 11/08/23 11/09/23 Range/Units 19:55 06:00 WBC 6.0 9.1 (3.8-10.6) k/uL RBC 4.16 L 3.49 L (4.30-5.90) m/uL Hgb 12.5 L D 10.7 L (13.0-17.5) gm/dL Hct 40.9 34.7 L (39.0-53.0) % Plt Count 171 196 (150-450) k/uL Comprehensive Metabolic Panel 11/08/23 11/09/23 Range/Units 19:55 06:52 Sodium 137 140 (137-145) mmol/L Potassium 4.7 4.2 (3.5-5.1) mmol/L Chloride 106 113 H (98-107) mmol/L Carbon Dioxide 25 22 (22-30) mmol/L BUN 27 H 29 H (9-20) mg/dL Creatinine 1.75 H 1.85 H (0.66-1.25) mg/dL Glucose 94 116 H (74-99) mg/dL Calcium 8.8 7.7 L (8.4-10.2) mg/dL AST 221 H (17-59) U/L ALT 148 H (4-49) U/L Alkaline Phosphatase 140 H (38-126) U/L Total Protein 6.6 (6.3-8.2) g/dL Albumin 2.9 L (3.5-5.0) g/dL Current Medications Generic Name Dose Route Start Last Admin Trade Name Freq PRN Reason Stop Dose Admin Albuterol Sulfate 2.5 mg 11/09/23 08:00 Albuterol Nebulized 2.5 Mg/3 Ml INHALATION RT-QID [facility] Budesonide 1 mg 11/09/23 08:00 Budesonide 1 Mg/2 Ml Nebu INHALATION RT-BID [facility] Chlorhexidine Gluconate 15 ml 11/09/23 09:00 Chlorhexidine Gluconate 15 Ml Cup MUCOUS MEM BID CLYDE Formoterol Fumarate 20 mcg 11/09/23 08:00 Formoterol Fumarate 20 Mcg/2 Ml Nebu INHALATION RT-BID CL[facility]DE Heparin Sodium (Porcine) 5,000 unit 11/09/23 09:00 Heparin Sodium,Porcine 5,000 Unit/Ml 1 Ml Vial SQ Q12HR [facility]DE Sodium Chloride 1,000 mls @ 100 mls/hr 11/08/23 21:45 11/09/23 01:52 Saline 0.9% IV 100 mls/hr .Q10H [facility] Administration Azithromycin 500 mg/ Sodium 250 mls @ 250 mls/hr 11/09/23 22:00 Chloride IVPB 11/10/23 22:59 DAILY@2200 CL[facility] Protocol Piperacillin Sod/Tazobactam 100 mls @ 25 mls/hr 11/09/23 06:00 11/09/23 05:59 Sod 3.375 gm/ Sodium Chloride IVPB 25 mls/hr Q8H [facility] Administration Protocol Norepinephrine Bitartrate 4 mg 254 mls @ 9.851 mls/hr 11/09/23 00:00 11/09/23 07:06 / Sodium Chloride IV 0.09 mcg/kg/min .Q24H [facility] 29.552 mls/hr Titration Protocol 0.03 MCG/KG/MIN Propofol 1,000 mg/ IV Solution 100 mls @ 7.757 mls/hr 11/09/23 00:15 11/09/23 07:05 IV 25 mcg/kg/min .[id number] [facility] 12.927 mls/hr Administration Protocol 15 MCG/KG/MIN Methylprednisolone Sodium Succinate 60 mg 11/09/23 06:00 11/09/23 05:58 Methylprednisolone Sod Succi 125 Mg/2 Ml Vial IV 60 mg Q6HR [facility] Administration Miscellaneous Information 1 each 11/08/23 21:31 Pneumonia Protocol Utilized 1 Each Misc PO ONCE PRN Per Protocol Miscellaneous Information 1 each 11/09/23 00:24 Rx Info: Iv Contrast Was Given 1 Each Misc MISCELLANE 11/11/23 00:24 DAILY PRN Per Protocol Naloxone HCl 0.2 mg 11/08/23 21:31 Naloxone 0.4 Mg/Ml 1 Ml Vial IVP Q2M PRN Opioid Reversal Pantoprazole Sodium 40 mg 11/09/23 09:00 Pantoprazole 40 Mg/10 Ml Vial IV DAILY [facility] Intake and Output 11/08/23 11/09/23 11/09/23 22:59 06:59 14:59 Intake Total 1803.382 213.123 Output Total 325 30 Balance 1478.382 183.123 Intake: IV 1600 100 Sodium Chloride 0.9% 1, 600 100 000 ml @ 100 mls/hr IV . Q10H [facility] Rx#:[id number] Sodium Chloride 0.9% 1, 1000 000 ml @ 999 mls/hr IV . Q1H1M ONE Rx#:[id number] Intake, IV Titration 203.382 113.123 Amount Norepinephrine 4 mg In 201.831 28.02 Sodium Chloride 0.9% 250 ml @ 0.03 MCG/KG/MIN 9. 851 mls/hr IV .Q24H [facility] Rx#:[id number] propofoL 1,000 mg In 1.551 85.103 Empty Bag 1 bag @ 15 MCG/ KG/MIN 7.757 mls/hr IV . [id number] [facility] Rx#:[id number] Output: Urine 325 30 Other: Voiding Method Indwelling Catheter Weight 86.183 kg 92.3 kg 11/09/23 06:00 11/09/23 06:52
[2023-11-09] MEDS: CHLORHEXIDINE GLUCONATE 15 ML CUP MUCOUS MEM SCH (08:08)
[2023-11-09] MEDS: HEPARIN SODIUM,PORCINE 5,000 UNIT/ML 1 ML VIAL SQ SCH (08:08)
[2023-11-09] MEDS: PANTOPRAZOLE 40 MG/10 ML VIAL IV SCH (08:09)
[2023-11-09] MEDS: ALBUTEROL NEBULIZED 2.5 MG/3 ML INHALATION SCH (09:01)
[2023-11-09] MEDS: FORMOTEROL FUMARATE 20 MCG/2 ML NEBU INHALATION SCH (09:02)
[2023-11-09] MEDS: BUDESONIDE 1 MG/2 ML NEBU INHALATION SCH (09:02)
--- NOTE | 2023-11-09 10:41 | P.HPIM ---
History of Present Illness This is a pleasant 78 years old male with past medical history of multiple medical problems including Asthma, Cancer, COPD, GERD/Reflux, Hyperlipidemia, Hypertension, Pneumonia, Prostate Disorder, Rheumatoid Arthritis (RA), Sleep Ap nola/CPAP/BIPAP Patient presents because of increased work of breathing and feeling weak. He has history of lung cancer. On admission patient was hypoxic and he was placed on BiPAP and he was saturati ng 94% last night however group marketing vp he desaturated more and a team was called and he had to be intubatedAnd moved to the ICU. Patient also was hypotensive and he will had to be started on pressors. Patient currently in room 263 is on mechanical ventilation and cannot provide information Currently remains on Levophed, he is afebrile, tachycardic and tachypneic Labs showing hemoglobin low 12.5 and 10.7, high creatinine 1.75 and 1.85 baseline 1.2-1.5. Liver enzymes moderately elevated D-dimer is elevated 2.5. proBNP is elevated 5450 Chest x-ray showing left lower lobe infiltrate with small pleural effusion EKG showing sinus tachycardia at [address]-T changes pH was 7.2 but came back to reference range at 7.3 Procalcitonin is elevated 0.69 CTA of the chest showing large pericardial effusion at 1.6 cm with a osteolytic metastatic lesion of T12 and possible pathological fracture at left acromion and moderate left pleural effusion Review of Systems ROS unobtainable: due to endotracheal tube, due to mental status Past Medical History Past Medical History: Asthma, Cancer, COPD, GERD/Reflux, Hyperlipidemia, Hypertension, Pneumonia, Prostate Disorder, Rheumatoid Arthritis (RA), Sleep Apnea/CPAP/BIPAP Additional Past Medical History / Comment(s): cardiomyopathy, anemia, lung cancer diagnosed 12/29/2022 (last chemo finished 08/21/23, last radiation 06/2023) History of Any Multi-Drug Resistant Organisms: None Reported Past Surgical History: Hernia Repair, Joint Replacement, Orthopedic Surgery Additional Past Surgical History / Comment(s): colonoscopy,EGD, Scotty hip replacments, scotty fx ankles, screws removed from rt ankle Past Anesthesia/Blood Transfusion Reactions: No Reported Reaction Past Psychological History: Depression Smoking Status: Former smoker Past Alcohol Use History: Occasional Past Drug Use History: None Reported Medications and Allergies Home Medications Medication Instructions Recorded Confirmed Type Pramipexole Di-HCl [Mirapex] 1.5 mg PO BID@08,199901/03/14 11/08/23 History allopurinoL [Zyloprim] 100 mg PO HS@199901/03/14 11/08/23 History Albuterol Sulfate [Albuterol 1 - 2 puff INHALATION RT-Q4H PRN 04/15/23 11/08/23 History Sulfate Hfa] Ergocalciferol (Vitamin D2) 1,250 mcg PO Q14D 04/15/23 11/08/23 History [Drisdol (50,000 Iu)] Ferrous Sulfate [Iron (65 MG 975 mg PO DAILY@139904/15/23 11/08/23 History Elemental)] Fluticasone Propion/Salmeterol 2 puff INHALATION RT-BID 04/15/23 11/08/23 History [Advair 250-50 Diskus] Montelukast [Singulair] 10 mg PO HS@199904/15/23 11/08/23 History Tamsulosin [Flomax] 0.4 mg PO DAILY@79904/15/23 11/08/23 History carvediloL [Coreg] 3.125 mg PO BID@799,199904/15/23 11/08/23 History Binimetinib [Mektovi] 30 mg PO BID 06/08/23 11/08/23 History Encorafenib [Braftovi] 75 mg PO BID 06/08/23 11/08/23 History Albuterol Nebulized [Ventolin 2.5 mg INHALATION RT-DAILY 09/08/23 11/08/23 History Nebulized] Benralizumab [Fasenra] 30 mg SQ Q56D 09/08/23 11/08/23 History Calcium Carbonate [Calcium] 600 mg PO BID@1399,199909/08/23 11/08/23 History Cholecalciferol [Vitamin D3 (10 10 mcg PO BID@1400,199909/08/23 11/08/23 History Mcg = 400 Iu)] Docusate Sodium 250 mg PO DAILY@79909/08/23 11/08/23 History Omeprazole [PriLOSEC] 40 mg PO DAILY@79909/08/23 11/08/23 History Zoledronic Acid [Zometa] 4 mg IV Q90D 09/08/23 11/08/23 History Magnesium 250 mg PO DAILY@0800 09/25/23 11/08/23 History Ondansetron Odt [Zofran ODT] 4 mg PO DAILY PRN 09/25/23 11/08/23 History Furosemide [Lasix] 40 mg PO BID@0800,1400 11/08/23 11/08/23 History HYDROcodone/APAP 10-325MG [[place] 1 tab PO Q6H PRN 11/08/23 11/08/23 History 10-325] Morphine Sulfate ER [Ms Contin] 30 mg PO BID PRN 11/08/23 11/08/23 History Rosuvastatin Calcium [Crestor] 40 mg PO DAILY@0800 11/08/23 11/08/23 History Allergies Allergy/AdvReac Type Severity Reaction Status Date / Time No Known Allergies Allergy Verified 11/08/23 20:21 Physical Exam Vitals: Vital Signs Temp Pulse Resp BP Pulse Ox FiO2 11/09/23 08:00 97.9 F 64 24 100 60 11/09/23 07:45 65 24 100 11/09/23 07:30 65 25 H 100 11/09/23 07:15 62 24 100 11/09/23 07:00 65 24 100 11/09/23 06:45 74 24 100 11/09/23 06:30 66 24 100 11/09/23 06:15 69 24 100 11/09/23 06:00 63 24 100 11/09/23 05:45 66 24 100 11/09/23 05:30 65 24 100 11/09/23 05:15 65 24 100 11/09/23 05:00 67 24 100 11/09/23 04:45 68 24 100 11/09/23 04:30 67 24 100 11/09/23 04:15 66 24 100 11/09/23 04:00 68 24 100 100 11/09/23 03:45 63 24 107/35 100 11/09/23 03:33 60 11/09/23 03:30 65 24 107/35 100 60 11/09/23 03:15 64 24 107/35 100 11/09/23 03:00 65 24 107/35 100 11/09/23 02:45 66 24 107/35 100 11/09/23 02:30 66 24 107/35 100 11/09/23 02:15 67 24 107/35 100 11/09/23 02:00 77 24 107/35 100 100 11/09/23 01:45 76 24 107/35 100 11/09/23 01:30 82 24 107/35 100 11/09/23 01:15 86 24 107/35 99 11/09/23 01:10 80 11/09/23 01:00 98.8 F 84 24 107/35 100 60 11/09/23 00:59 100 11/09/23 00:40 90 19 110/58 100 11/09/23 00:04 116 H 20 62/42 100 11/08/23 23:48 97.6 F 11/08/23 22:00 113 H 18 115/71 94 L 11/08/23 20:58 108 H 18 102/60 92 L 11/08/23 20:53 50 11/08/23 20:01 112 H 11/08/23 19:52 114 H 11/08/23 19:44 124 H 19 121/70 92 L 11/08/23 19:30 99.1 F 49 L 22 94/54 83 L Intake and Output 11/08/23 11/09/23 11/09/23 22:59 06:59 14:59 Intake Total 1803.382 333.809 Output Total 325 65 Balance 1478.382 268.809 Intake: IV 1600 200 Sodium Chloride 0.9% 1, 600 200 000 ml @ 100 mls/hr IV . Q10H [facility] Rx#:[id number] Sodium Chloride 0.9% 1, 1000 000 ml @ 999 mls/hr IV . Q1H1M ONE Rx#:[id number] Intake, IV Titration 203.382 133.809 Amount Norepinephrine 4 mg In 201.831 48.706 Sodium Chloride 0.9% 250 ml @ 0.03 MCG/KG/MIN 9. 851 mls/hr IV .Q24H [facility] Rx#:[id number] propofoL 1,000 mg In 1.551 85.103 Empty Bag 1 bag @ 15 MCG/ KG/MIN 7.757 mls/hr IV . [id number] [facility] Rx#:[id number] Output: Urine 325 65 Other: Voiding Method Indwelling Catheter Weight 86.183 kg 92.3 kg ABP, PAP, CO, CI - Last 8 Hours Arterial Blood Pressure 105/46 Arterial Blood Pressure 115/49 Arterial Blood Pressure 129/53 Arterial Blood Pressure 115/44 Arterial Blood Pressure 114/46 Arterial Blood Pressure 111/50 Arterial Blood Pressure 113/47 Arterial Blood Pressure 93/44 Arterial Blood Pressure 121/49 Arterial Blood Pressure 104/44 Arterial Blood Pressure 94/49 Arterial Blood Pressure 92/45 Arterial Blood Pressure 104/48 Arterial Blood Pressure 91/49 Arterial Blood Pressure 95/51 Arterial Blood Pressure 91/56 Arterial Blood Pressure 113/54 Arterial Blood Pressure 111/53 Arterial Blood Pressure 111/61 Arterial Blood Pressure 110/50 Arterial Blood Pressure 111/55 Arterial Blood Pressure 113/50 Arterial Blood Pressure 108/50 Arterial Blood Pressure 120/56 Arterial Blood Pressure 114/54 Arterial Blood Pressure 121/48 Arterial Blood Pressure 100/46 Arterial Blood Pressure 90/39 Arterial Blood Pressure 100/42 -GENERAL: The patient is intubated and sedated HEENT: Pupils are round and equally reacting to light. EOMI. No scleral icterus. No conjunctival pallor. Normocephalic, atraumatic. No pharyngeal erythema. No thyromegaly. CARDIOVASCULAR: S1 and S2 present. No murmurs, rubs, or gallops. -PULMONARY: Chest is clear to auscultation, no wheezing , no crackles. Decreased breath sounds on both lung bases ABDOMEN: Soft, nontender, nondistended, normoactive bowel sounds. No palpable organomegaly. MUSCULOSKELETAL: No joint swelling or deformity. EXTREMITIES: No cyanosis, clubbing, or pedal edema. NEUROLOGICAL: Gross neurological examination did not reveal any focal deficits. SKIN: No rashes. no petechiae. Results CBC & Chem 7: 11/09/23 06:00 11/09/23 06:52 Labs: Abnormal Lab Results - Last 24 Hours (Table) 11/08/23 11/08/23 11/08/23 Range/Units 19:55 19:55 19:55 RBC 4.16 L (4.30-5.90) m/uL Hgb 12.5 L D (13.0-17.5) gm/dL Hct (39.0-53.0) % MCHC 30.7 L (31.0-37.0) g/dL RDW 17.9 H (11.5-15.5) % Neutrophils # (1.3-7.7) k/uL Lymphocytes # (1.0-4.8) k/uL D-Dimer 2.50 H (<0.60) mg/L FEU ABG pH (7.35-7.45) ABG pCO2 (35-45) mmHg ABG pO2 (83-108) mmHg ABG HCO3 (21-25) mmol/L ABG Total CO2 (19-24) mmol/L ABG O2 Saturation (94-97) % Hemoglobin (13.0-17.5) gm/dL Chloride (98-107) mmol/L BUN 27 H (9-20) mg/dL Creatinine 1.75 H (0.66-1.25) mg/dL Glucose (74-99) mg/dL POC Glucose (mg/dL) (70-110) mg/dL Calcium (8.4-10.2) mg/dL AST 221 H (17-59) U/L ALT 148 H (4-49) U/L Alkaline Phosphatase 140 H (38-126) U/L Albumin 2.9 L (3.5-5.0) g/dL 11/08/23 11/09/23 11/09/23 Range/Units 23:51 01:03 05:45 RBC (4.30-5.90) m/uL Hgb (13.0-17.5) gm/dL Hct (39.0-53.0) % MCHC (31.0-37.0) g/dL RDW (11.5-15.5) % Neutrophils # (1.3-7.7) k/uL Lymphocytes # (1.0-4.8) k/uL D-Dimer (<0.60) mg/L FEU ABG pH 7.21 L (7.35-7.45) ABG pCO2 63 H (35-45) mmHg ABG pO2 118 H 109 H (83-108) mmHg ABG HCO3 26 H (21-25) mmol/L ABG Total CO2 28 H (19-24) mmol/L ABG O2 Saturation 98.3 H 98.8 H (94-97) % Hemoglobin 11.0 L 10.8 L (13.0-17.5) gm/dL Chloride (98-107) mmol/L BUN (9-20) mg/dL Creatinine (0.66-1.25) mg/dL Glucose (74-99) mg/dL POC Glucose (mg/dL) 147 H (70-110) mg/dL Calcium (8.4-10.2) mg/dL AST (17-59) U/L ALT (4-49) U/L Alkaline Phosphatase (38-126) U/L Albumin (3.5-5.0) g/dL 11/09/23 11/09/23 Range/Units 06:00 06:52 RBC 3.49 L (4.30-5.90) m/uL Hgb 10.7 L (13.0-17.5) gm/dL Hct 34.7 L (39.0-53.0) % MCHC 30.8 L (31.0-37.0) g/dL RDW 18.0 H (11.5-15.5) % Neutrophils # 7.8 H (1.3-7.7) k/uL Lymphocytes # 0.9 L (1.0-4.8) k/uL D-Dimer (<0.60) mg/L FEU ABG pH (7.35-7.45) ABG pCO2 (35-45) mmHg ABG pO2 (83-108) mmHg ABG HCO3 (21-25) mmol/L ABG Total CO2 (19-24) mmol/L ABG O2 Saturation (94-97) % Hemoglobin (13.0-17.5) gm/dL Chloride 113 H (98-107) mmol/L BUN 29 H (9-20) mg/dL Creatinine 1.85 H (0.66-1.25) mg/dL Glucose 116 H (74-99) mg/dL POC Glucose (mg/dL) (70-110) mg/dL Calcium 7.7 L (8.4-10.2) mg/dL AST (17-59) U/L ALT (4-49) U/L Alkaline Phosphatase (38-126) U/L Albumin (3.5-5.0) g/dL Thrombosis Risk Factor Assmnt - Choose All That Apply Any of the Below Risk Factors Present?: No Each Risk Factor Represents 3 Points: Age 75 years or older Thrombosis Risk Factor Assessment Total Risk Factor Score: 3 Thrombosis Risk Factor Assessment Level: Moderate Risk Assessment and Plan Assessment: Septic shock secondary to healthcare associated pneumonia versus postobstructive pneumonia with endorgan dysfunction including hypoxia and altered mental status Acute hypoxic respiratory failure requiring intubation and mechanical ventilation Metabolic/toxic encephalopathy secondary to above Lung cancers with evidence of metastatic disease to the bone and possible pericardium Pericardial effusion 1.6 cm Osteolytic lesion of the 11 suspicious for metastatic disease Possible pathological fracture of the left acromion Moderate left pleural effusion could be malignant Acute COPD/asthma exacerbation Plan: Continue with antibiotic Zithromax and Zosyn Continue with IV Solu-Medrol 80 mg every 6 hours. And Normal Saline 130 mL/h Continue with pressors as per needed and per pulmonary/critical care team will follow the patient closely Cardiology consult GI prophylaxis Protonix DVT prophylaxis heparin Prognosis is very guarded
--- NOTE | 2023-11-09 11:10 | CA ---
Transthoracic Echo Report Name: Jett Babcock Age: 78 Gender: M : 1945 Exam Date: 11/09/2023 07:47 Exam Location: [facility] Ht (in): 69 Wt (lb): 190 Ordering Physician: Doe [place] Attending/Referring Phys: Case Operator Darling Ramsay RDCS Procedure CPT: Indications: evaluate LV function Cardiac Hx: Pericardial effusion Technical Quality: Good Contrast 1: Total Dose (mL): Contrast 2: Total Dose (mL): MEASUREMENTS (Male / Female) Normal Values FINDINGS Left Ventricle Right Ventricle Right Atrium Left Atrium Mitral Valve Aortic Valve Tricuspid Valve Pulmonic Valve Pericardium Moderate pericardial effusion. Aorta CONCLUSIONS Moderate pericardial effusion noted Previewed by: Dr. Wilman Dean MD (Electronically Signed) Final Date: 09 November 2023 11:10
--- NOTE | 2023-11-09 11:28 | US ---
EXAMINATION TYPE: US chest DATE OF EXAM: 11/09/2023 COMPARISON: CTA chest 11/09/2023 CLINICAL INDICATION: Male, 78 years old with history of Bilateral effusions L>R; bilat effusions TECHNIQUE: Targeted ultrasound of the posterior lower bilateral hemithoraces EXAM MEASUREMENTS: Right Pleural Effusion pocket size: 1.5 cm measured from skin line to debri Right skin surface to fluid distance: 2.6 cm Left Pleural Effusion pocket size: 5.5 cm Left skin surface to fluid distance: 2.7 cm Left side marked for possible thoracentesis outside the dept. Pulmonologists are able to review the images in the patient?s EMR. exam limited, patient intubated IMPRESSIONS: 1. Moderate size left pleural effusion. 2. Small right pleural effusion.
[2023-11-09 12:07] LABS: Glucose,Whole Blood 96 mg/dL (70-110)
[2023-11-09] MEDS: FUROSEMIDE 10 MG/ML 4 ML VIAL IV STA (14:54)
[2023-11-09] MEDS ORDERED: CISATRACURIUM 2 MG/ML 5 ML VIAL IV ONE (16:31)
[2023-11-09] MEDS: CISATRACURIUM 2 MG/ML 5 ML VIAL IV ONE (17:07)
--- NOTE | 2023-11-09 17:20 | XR ---
EXAMINATION TYPE: XR chest 1V confirm line [facility] DATE OF EXAM: 11/09/2023 COMPARISON: 11/09/2023 INDICATION: Line placement TECHNIQUE: Single frontal view of the chest is obtained. FINDINGS: The heart size is normal. The pulmonary vasculature is normal. Mild infiltrate may be in the left upper lung field. Mild infiltrate and/or pleural effusion silhouet ting the left diaphragm. Endotracheal tube tip is 5.2 cm above the júnior. Nasogastric tube transverses the thorax tip in the left upper quadrant of the abdomen. Right central venous catheter has been placed with the tip in the proximal right atrium. No pneumothorax evident IMPRESSION: 1. Mild left upper lobe infiltrate. 2. Small left pleural effusion and/or infiltrate. 3. Lines and Catheters discussed above. 4. Placement of a right central venous catheter with the tip in the proximal right atrium. No pneumot horax evident.
[2023-11-09 17:44] LABS: Glucose,Whole Blood 101 mg/dL (70-110)
--- NOTE | 2023-11-09 19:01 | OP ---
OPERATIVE REPORT DATE OF SERVICE : PROCEDURE: Placement of right subclavian triple-lumen catheter. PREOPERATIVE DIAGNOSIS: Acute hypoxic and hypercapnic respiratory failure with hypotension. POSTOPERATIVE DIAGNOSIS: Acute hypoxic and hypercapnic respiratory failure with hypotension. ANESTHESIA USED: 2 mL of 1% lidocaine. DESCRIPTION OF PROCEDURE: The patient was placed in a Trendelenburg position, the area of the right subclavian region was prepared in a sterile fashion and drapes were applied. Using the inferior approach, the area below the right clavicle was anesthetized, then again using the inferior approach, the right subclavian vein was easily cannulated, a guidewire was placed, area around the guidewire dilated, then a triple-lumen catheter was inserted over the guidewire. The guidewire was removed. Good blood flow noted in the 3 different ports of the triple-lumen catheter, line was secured using 3.0 silk sutures, chest x-ray postoperatively showed no complications and adequate placement of the triple-lumen catheter. MMODL / IJN: [id number] /
[2023-11-09 19:39] LABS: Appearance,Urine Clear (Clear); Bacteria,Urine Occasional /hpf; Bilirubin,Urine Negative (Negative); Blood,Urine Trace (Negative); Color,Urine Colorless; Glucose,Urine (UA) Negative (Negative); Ketones,Urine Negative (Negative); Leukocyte Esterase,Urine Small (Negative); Mucus,Urine Rare /hpf; Nitrite,Urine Negative (Negative); Protein,Urine Negative (Negative); RBC,Urine 4 /hpf (0-5); Specific Gravity,Urine 1.012 (1.001-1.035); Urobilinogen,Urine <2.0 mg/dL (<2.0); WBC,Urine 3 /hpf (0-5)
[2023-11-09] MEDS: AZITHROMYCIN 500 MG in SODIUM CHLORIDE 0.9% 250 ML IVPB SCH (21:01)
--- NOTE | 2023-11-09 21:09 | P.CONS ---
History of Present Illness - Reason for Consult Consult date: 11/09/23 hx lung cancer Requesting physician: Kj Nixon - Chief Complaint SOB - History of Present Illness Mr. Babcock is a 77-year-old gentleman with a past medical history significant for COPD and lung cancer. He is a patient of Dr. Monica bobby. He was initially seen in consultation at [facility] on 01/07/2023, presented with persistent left-sided chest discomfort radiating to the left shoulder, which had been occurring over 2 months prior to his presentation. CTA 01/07/2023 was negative for PE, but did reveal enlarged left lower lung mass measuring 4.2 x 2.1 cm extending towards the pulmonary hilum. In addition, there was an erosive sternal mass measuring at least 3.4 x 2.5 cm along with possible lytic lesion at T1 vertebrae measuring up to 1.[address] of the head without contrast revealed no acute intracranial process. Biopsy of the sternal mass on 01/10/2023 revealed morphologic features consistent with both adenocarcinoma and neuro endocrine tumor. IHC was positive for TTF-1, synaptophysin, Napsin, and focal positivity for CD56 and high Ki-67 proliferative index. P40 and p63 were both negative. Following discharge, PET/CT 01/21/2023 at [facility] revealed mild FDG avidity in the lower lobe medial left lung nodule that was above the average liver SUV. There is increased FDG avidity in the sternal lesion as well as bone lesion in the posterior lateral left scapula. 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 Following his initial visit, there was a concern for potential of small cell lung cancer. He underwent 5 fractions of palliative radiation to the sternum and left scapula receiving a total of 35 Gy completed on 02/14/2023. He initiated cycle 1 of carboplatin/etoposide/Tecentriq due to this concern on 02/16/2023 through 02/18/2023. NGS from biopsy and circulating tumor DNA was significant for BRAF V600E mutation with no TP53 or RB1 mutations typically seen in small cell lung cancer. PD-L1 expression was less than 1%. Upon additional review of his pathology in light of his molecular profiling, it appears adenocarcinoma is the dominant histology with the synaptophysin being a component of adenocarcinoma with negative chromogranin. Moreover, molecular profiling did not reveal any typical mutations seen in small cell carcinoma. Treatment was switched to carboplatin/Alimta with cycle 1 on 03/17/2023 followed by cycle 2 on 04/07/2023 given with GCSF. He required hospitalization for progressive fatigue with nausea and diarrhea prompting hospitalizations. At his clinic visit on 04/14 it was decided to hold on administering any further chemotherapy to allow him to recover from the 2 cycles of carboplatin/Alimta. CT CAP 06/14/23 showed stable disease. After he recovered his treatment was changed to targeted therapy with dabrafenib/trametinib in May 2023. MRI of the neck and brain ordered for new neck pain performed on 05/27/2023 and 05/31/2023 revealed no evidence of intracranial metastases with new T1 vertebral body lesion along with degenerative changes from C2-C6. PET/CT 06/24/2023 revealed FDG uptake in the known areas of disease along with T1 vertebral body. He received 24 Moore in 3 fractions of palliative radiation therapy to the T1 vertebral body completed on 07/22/2023. Mid July 2023, he did have admission to [facility] due to influenza A and B, he was treated with IV antibiotics and Tamiflu with progressive improvement. He was seen then seen in the office c/o progressive fatigue, weakness, and intermittent confusion. He had Chest x-ray to rule out superimposed bacterial pneumonia given his recent influenza A and B, started on abx, braftovi/mektovi was held. He was then readmitted to the hospital on for progressive SOB, and weakness. CTA no pl eff or PE. Small pericardial effusion. Brain CT w/w/o neg for acute process. Treatment f/u PET/CT was obtained on 09/22/2023, which showed overall stable disease; of note patient has been off treatment for most of the last 1 month prior to PET scan due to repeat admissions/infections. Since his last admission, Braftovi was dose reduced to 150 mg daily, with better toleration of treatement. Due to anemia and persisting fatigue patient was transfused 1 unit PRBCs on 10/27/23. He continues Braftovi at 150 mg daily and Mektovi at 30 mg twice daily. He has been taking Braftovi at 150 mg daily since 10/15/2023 Patient presented to the emergency room for shortness of breath. Patient is currently intubated no family at bedside so HPI is not able to be obtained. Due to respiratory distress patient was transferred to ICU and was intubated. CTA of chest showed large pericardial effusion measuring 1.6 cm negative for PE. No RV strain noted. 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 Moderate left and small right pleural effusions. Compressive atelectasis in the bilateral dependent lung garcia, left greater than right. Patient has been started on IV antibiotics. Cardiology has been consulted and echocardiogram ordered. Labs showing WBC 9.1, hemoglobin 10.7, platelets 196,000. Creatinine 1.85, GFR 34. Procalcitonin 0.69. Review of Systems 10 point ROS is negative except as stated in the HPI Past Medical History Past Medical History: Asthma, Cancer, COPD, GERD/Reflux, Hyperlipidemia, Hypertension, Pneumonia, Prostate Disorder, Rheumatoid Arthritis (RA), Sleep Apnea/CPAP/BIPAP Additional Past Medical History / Comment(s): cardiomyopathy, anemia, lung ca ncer diagnosed 12/29/2022 (last chemo finished 08/21/23, last radiation 06/2023) History of Any Multi-Drug Resistant Organisms: None Reported Past Surgical History: Hernia Repair, Joint Replacement, Orthopedic Surgery Additional Past Surgical History / Comment(s): colonoscopy,EGD, Antonina hip replacments, antonina fx ankles, screws removed from rt ankle Past Anesthesia/Blood Transfusion Reactions: No Reported Reaction Past Psychological History: Depression Smoking Status: Former smoker Past Alcohol Use History: Occasional Past Drug Use History: None Reported Medications and Allergies Home Medications Medication Instructions Recorded Confirmed Type Pramipexole Di-HCl [Mirapex] 1.5 mg PO BID@0800,199901/03/14 11/08/23 History allopurinoL [Zyloprim] 100 mg PO HS@199901/03/14 11/08/23 History Albuterol Sulfate [Albuterol 1 - 2 puff INHALATION RT-Q4H PRN 04/15/23 11/08/23 History Sulfate Hfa] Ergocalciferol (Vitamin D2) 1,250 mcg PO Q14D 04/15/23 11/08/23 History [Drisdol (50,000 Iu)] Ferrous Sulfate [Iron (65 MG 975 mg PO DAILY@1400 04/15/23 11/08/23 History Elemental)] Fluticasone Propion/Salmeterol 2 puff INHALATION RT-BID 04/15/23 11/08/23 History [Advair 250-50 Diskus] Montelukast [Singulair] 10 mg PO HS@199904/15/23 11/08/23 History Tamsulosin [Flomax] 0.4 mg PO DAILY@0804/15/23 11/08/23 History carvediloL [Coreg] 3.125 mg PO BID@08,199904/15/23 11/08/23 History Binimetinib [Mektovi] 30 mg PO BID 06/08/23 11/08/23 History Encorafenib [Braftovi] 75 mg PO BID 06/08/23 11/08/23 History Albuterol Nebulized [Ventolin 2.5 mg INHALATION RT-DAILY 09/08/23 11/08/23 History Nebulized] Benralizumab [Fasenra] 30 mg SQ Q56D 09/08/23 11/08/23 History Calcium Carbonate [Calcium] 600 mg PO BID@1400,199909/08/23 11/08/23 History Cholecalciferol [Vitamin D3 (10 10 mcg PO BID@1400,199909/08/23 11/08/23 History Mcg = 400 Iu)] Docusate Sodium 250 mg PO DAILY@0800 09/08/23 11/08/23 History Omeprazole [PriLOSEC] 40 mg PO DAILY@79909/08/23 11/08/23 History Zoledronic Acid [Zometa] 4 mg IV Q90D 09/08/23 11/08/23 History Magnesium 250 mg PO DAILY@79909/25/23 11/08/23 History Ondansetron Odt [Zofran ODT] 4 mg PO DAILY PRN 09/25/23 11/08/23 History Furosemide [Lasix] 40 mg PO BID@0800,1400 11/08/23 11/08/23 History HYDROcodone/APAP 10-325MG [[place] 1 tab PO Q6H PRN 11/08/23 11/08/23 History 10-325] Morphine Sulfate ER [Ms Contin] 30 mg PO BID PRN 11/08/23 11/08/23 History Rosuvastatin Calcium [Crestor] 40 mg PO DAILY@0800 11/08/23 11/08/23 History Allergies Allergy/AdvReac Type Severity Reaction Status Date / Time No Known Allergies Allergy Verified 11/08/23 20:21 Physical Exam Vitals: Vital Signs Temp Pulse Resp BP Pulse Ox FiO2 11/09/23 09:16 104 H 11/09/23 09:15 64 24 100 11/09/23 09:10 110 H 11/09/23 09:09 110 H 11/09/23 09:00 63 24 100 11/09/23 08:50 60 11/09/23 08:45 60 24 100 11/09/23 08:40 60 11/09/23 08:30 64 24 100 60 11/09/23 08:20 60 11/09/23 08:15 65 24 100 11/09/23 08:10 60 11/09/23 08:02 60 11/09/23 08:00 97.9 F 64 24 100 60 11/09/23 07:45 65 24 100 11/09/23 07:30 65 25 H 100 11/09/23 07:15 62 24 100 11/09/23 07:00 65 24 100 11/09/23 06:45 74 24 100 11/09/23 06:30 66 24 100 11/09/23 06:15 69 24 100 11/09/23 06:00 63 24 100 11/09/23 05:45 66 24 100 11/09/23 05:30 65 24 100 11/09/23 05:15 65 24 100 11/09/23 05:00 67 24 100 11/09/23 04:45 68 24 100 11/09/23 04:30 67 24 100 11/09/23 04:15 66 24 100 11/09/23 04:00 68 24 100 100 11/09/23 03:45 63 24 107/35 100 11/09/23 03:33 60 11/09/23 03:30 65 24 107/35 100 60 11/09/23 03:15 64 24 107/35 100 11/09/23 03:00 65 24 107/35 100 11/09/23 02:45 66 24 107/35 100 11/09/23 02:30 66 24 107/35 100 11/09/23 02:15 67 24 107/35 100 11/09/23 02:00 77 24 107/35 100 100 11/09/23 01:45 76 24 107/35 100 11/09/23 01:30 82 24 107/35 100 11/09/23 01:15 86 24 107/35 99 11/09/23 01:10 80 11/09/23 01:00 98.8 F 84 24 107/35 100 60 11/09/23 00:59 100 11/09/23 00:40 90 19 110/58 100 11/09/23 00:04 116 H 20 62/42 100 11/08/23 23:48 97.6 F 11/08/23 22:00 113 H 18 115/71 94 L 11/08/23 20:58 108 H 18 102/60 92 L 11/08/23 20:53 50 11/08/23 20:01 112 H 11/08/23 19:52 114 H 11/08/23 19:44 124 H 19 121/70 92 L 11/08/23 19:30 99.1 F 49 L 22 94/54 83 L Intake and Output 11/08/23 11/09/23 11/09/23 22:59 06:59 14:59 Intake Total 1803.382 479.506 Output Total 325 125 Balance 1478.382 354.506 Intake: IV 1600 300 Sodium Chloride 0.9% 1, 600 300 000 ml @ 100 mls/hr IV . Q10H [facility] Rx#:[id number] Sodium Chloride 0.9% 1, 1000 000 ml @ 999 mls/hr IV . Q1H1M ONE Rx#:[id number] Intake, IV Titration 203.382 179.506 Amount Norepinephrine 4 mg In 201.831 94.403 Sodium Chloride 0.9% 250 ml @ 0.03 MCG/KG/MIN 9. 851 mls/hr IV .Q24H [facility] Rx#:[id number] propofoL 1,000 mg In 1.551 85.103 Empty Bag 1 bag @ 15 MCG/ KG/MIN 7.757 mls/hr IV . [id number] [facility] Rx#:[id number] Output: Urine 325 125 Other: Voiding Method Indwelling Catheter Indwelling Catheter Weight 86.183 kg 92.3 kg ABP, PAP, CO, CI - Last 8 Hours Arterial Blood Pressure 97/43 Arterial Blood Pressure 125/52 Arterial Blood Pressure 117/49 Arterial Blood Pressure 121/49 Arterial Blood Pressure 115/49 Arterial Blood Pressure 105/46 Arterial Blood Pressure 115/49 Arterial Blood Pressure 129/53 Arterial Blood Pressure 115/44 Arterial Blood Pressure 114/46 Arterial Blood Pressure 111/50 Arterial Blood Pressure 113/47 Arterial Blood Pressure 93/44 Arterial Blood Pressure 121/49 Arterial Blood Pressure 104/44 Arterial Blood Pressure 94/49 Arterial Blood Pressure 92/45 Arterial Blood Pressure 104/48 Arterial Blood Pressure 91/49 Arterial Blood Pressure 95/51 Arterial Blood Pressure 91/56 Arterial Blood Pressure 113/54 Arterial Blood Pressure 111/53 Arterial Blood Pressure 111/61 Arterial Blood Pressure 110/50 Arterial Blood Pressure 111/55 Arterial Blood Pressure 113/50 Arterial Blood Pressure 108/50 Arterial Blood Pressure 120/56 Arterial Blood Pressure 114/54 - Constitutional General appearance: average body habitus, no acute distress - EENT Eyes: anicteric sclerae, EOMI ENT: hearing grossly normal - Respiratory ventilated breath sounds - Cardiovascular Rhythm: regular Abnormal Heart Sounds: systolic murmur - Gastrointestinal General gastrointestinal: soft - Integumentary Integumentary: no cyanotic - Neurologic sedated Results CBC & Chem 7: 11/09/23 06:00 11/09/23 06:52 Labs: Abnormal Lab Results - Last 24 Hours (Table) 11/08/23 11/08/23 11/08/23 Range/Units 19:55 19:55 19:55 RBC 4.16 L (4.30-5.90) m/uL Hgb 12.5 L D (13.0-17.5) gm/dL Hct (39.0-53.0) % MCHC 30.7 L (31.0-37.0) g/dL RDW 17.9 H (11.5-15.5) % Neutrophils # (1.3-7.7) k/uL Lymphocytes # (1.0-4.8) k/uL D-Dimer 2.50 H (<0.60) mg/L FEU ABG pH (7.35-7.45) ABG pCO2 (35-45) mmHg ABG pO2 (83-108) mmHg ABG HCO3 (21-25) mmol/L ABG Total CO2 (19-24) mmol/L ABG O2 Saturation (94-97) % Hemoglobin (13.0-17.5) gm/dL Chloride (98-107) mmol/L BUN 27 H (9-20) mg/dL Creatinine 1.75 H (0.66-1.25) mg/dL Glucose (74-99) mg/dL POC Glucose (mg/dL) (70-110) mg/dL Calcium (8.4-10.2) mg/dL AST 221 H (17-59) U/L ALT 148 H (4-49) U/L Alkaline Phosphatase 140 H (38-126) U/L Albumin 2.9 L (3.5-5.0) g/dL Procalcitonin (0.02-0.50) ng/mL 11/08/23 11/09/23 11/09/23 Range/Units 23:51 01:03 01:41 RBC (4.30-5.90) m/uL Hgb (13.0-17.5) gm/dL Hct (39.0-53.0) % MCHC (31.0-37.0) g/dL RDW (11.5-15.5) % Neutrophils # (1.3-7.7) k/uL Lymphocytes # (1.0-4.8) k/uL D-Dimer (<0.60) mg/L FEU ABG pH 7.21 L (7.35-7.45) ABG pCO2 63 H (35-45) mmHg ABG pO2 118 H (83-108) mmHg ABG HCO3 26 H (21-25) mmol/L ABG Total CO2 28 H (19-24) mmol/L ABG O2 Saturation 98.3 H (94-97) % Hemoglobin 11.0 L (13.0-17.5) gm/dL Chloride (98-107) mmol/L BUN (9-20) mg/dL Creatinine (0.66-1.25) mg/dL Glucose (74-99) mg/dL POC Glucose (mg/dL) 147 H (70-110) mg/dL Calcium (8.4-10.2) mg/dL AST (17-59) U/L ALT (4-49) U/L Alkaline Phosphatase (38-126) U/L Albumin (3.5-5.0) g/dL Procalcitonin 0.69 H (0.02-0.50) ng/mL 11/09/23 11/09/23 11/09/23 Range/Units 05:45 06:00 06:52 RBC 3.49 L (4.30-5.90) m/uL Hgb 10.7 L (13.0-17.5) gm/dL Hct 34.7 L (39.0-53.0) % MCHC 30.8 L (31.0-37.0) g/dL RDW 18.0 H (11.5-15.5) % Neutrophils # 7.8 H (1.3-7.7) k/uL Lymphocytes # 0.9 L (1.0-4.8) k/uL D-Dimer (<0.60) mg/L FEU ABG pH (7.35-7.45) ABG pCO2 (35-45) mmHg ABG pO2 109 H (83-108) mmHg ABG HCO3 (21-25) mmol/L ABG Total CO2 (19-24) mmol/L ABG O2 Saturation 98.8 H (94-97) % Hemoglobin 10.8 L (13.0-17.5) gm/dL Chloride 113 H (98-107) mmol/L BUN 29 H (9-20) mg/dL Creatinine 1.85 H (0.66-1.25) mg/dL Glucose 116 H (74-99) mg/dL POC Glucose (mg/dL) (70-110) mg/dL Calcium 7.7 L (8.4-10.2) mg/dL AST (17-59) U/L ALT (4-49) U/L Alkaline Phosphatase (38-126) U/L Albumin (3.5-5.0) g/dL Procalcitonin (0.02-0.50) ng/mL Chest x-ray: report reviewed CT scan - chest: report reviewed CT Scan - head: report reviewed Assessment and Plan (1) Respiratory arrest Current Visit: Yes Status: Acute Priority: High Code(s): R09.2 - RESPIRATORY ARREST SNOMED Code(s): 56432185 (2) Lung cancer Current Visit: Yes Status: Acute Priority: High Code(s): C34.90 - MALIGNANT NEOPLASM OF UNSP PART OF UNSP BRONCHUS OR LUNG SNOMED Code(s): 560968093 (3) Pericardial effusion Current Visit: Yes Status: Acute Priority: High Code(s): I31.39 - OTHER PERICARDIAL EFFUSION (NONINFLAMMATORY) SNOMED Code(s): 823640834 Plan: Acute respiratory failure, pericardial effusion: Presented to the emergency room for shortness of breath. Due to respiratory distress patient was transferred to ICU and was intubated -CTA of chest showed large pericardial effusion measuring 1.6 cm negative for PE. No RV strain noted. 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 Moderate left and small right pleural effusions. Compressive atelectasis in the bilateral dependent lung garcia, left greater than right. -Zosyn and Azithromycin started -Cardiology has been consulted and echocardiogram ordered. May need pericardial window. If obtained, will request cytology on pericardial fluid -Defer management to ICU and cardiology teams NSCLC: -Oncology history and plan as dictated in HPI -He continues Braftovi at 150 mg daily and Mektovi at 30 mg twice daily. He has been taking Braftovi at 150 mg daily since 10/15/2023 -Hold Braftovi/Mektovi while inpt -Staging scans planned for later next month attests: I have seen and examined patient, performed H&P, developed impression and plan of care. Discussed with dictator. Agree with documentation, dictated as a scribe
[2023-11-09 23:31] LABS: Glucose,Whole Blood 143 mg/dL (70-110)
[2023-11-10 04:46] LABS: Anisocytosis Slight; Basophils % (A) 0 %; Eosinophils % (A) 0 %; HCT 34.2 % (39.0-53.0); Hypochromasia Slight; Lymphocytes # (A) 0.7 k/uL (1.0-4.8); Lymphocytes % (A) 9 %; MCH 30.7 pg (25.0-35.0); Macrocytosis Slight; Mean Platelet Volume 10.1; Monocytes # (A) 0.3 k/uL (0-1.0); Monocytes % (A) 4 %; Neutrophils # (A) 6.5 k/uL (1.3-7.7); Neutrophils % (A) 86 %; Platelet Count 174 k/uL (150-450); RBC 3.56 m/uL (4.30-5.90); RDW 18.5 % (11.5-15.5); WBC 7.5 k/uL (3.8-10.6)
[2023-11-10 05:12] LABS: African American GFR (CKD) 35 (>60 ml/min/1.73 sqM); Anion Gap 6 mmol/L; Blood Urea Nitrogen 37 mg/dL (9-20); Calcium 7.5 mg/dL (8.4-10.2); Carbon Dioxide 22 mmol/L (22-30); Chloride 114 mmol/L (98-107); Glucose 151 mg/dL (74-99); Non-African American GFR(CKD) 30 (>60 ml/min/1.73 sqM); Potassium 3.9 mmol/L (3.5-5.1); Sodium 142 mmol/L (137-145)
[2023-11-10] MEDS ORDERED: Potassium Replacement Protocol 1 EACH MISC MISCELLANE PRN (05:22)
[2023-11-10 06:21] LABS: ABG Base Excess -3.4 mmol/L; ABG HCO3 22 mmol/L (21-25); ABG Oxygen Saturation 99.2 % (94-97); ABG PCO2 42 mmHg (35-45); ABG PH 7.33 (7.35-7.45); ABG PO2 131 mmHg (83-108); ABG TCO2 24 mmol/L (19-24); Allen Test Performed? Yes
[2023-11-10 06:29] LABS: Glucose,Whole Blood 150 mg/dL (70-110)
[2023-11-10] MEDS: POTASSIUM BICARBONATE/CIT AC 20 MEQ TABLET.EFF NG-TUBE SCH (06:39)
--- NOTE | 2023-11-10 07:44 | P.PN ---
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 The patient was seen in the ICU and currently is intubated on mechanical ventilation and the history was taken from the chart and nurse taking care of the patient. The patient presented with increasing shortness of breath with no symptoms of chest pain or chest discomfort or dizziness or lightheadedness or presyncope or syncope. He was found to be in acute respiratory distress and he underwent intubation in the emergency department subsequently he was placed on mechanical ventilation and admitted to the intensive care unit. He underwent further investigation including an EKG and that showed sinus mechanism and subsequently chest x-ray showed cardiomegaly. Subsequently CT scan of the chest was performed and showed large pericardial effusion with moderate pleural effusion. The patient currently is hemodynamically unstable and requiring small dose of norepinephrine. We are going to obtain an echocardiogram as soon as possible and if he does have any evidence of tamponade physiology the patient need to undergo pericardial window and not pericardiocentesis just because of the nature of the pericardial effusion which is malignant and likely to be recurrent. The physical examination is remarkable for regular rate and rhythm with a distant heart sounds and a soft systolic murmur at the right upper sternal border with diminished breathing sounds bilaterally and no edema was noted in the lower extremities November 10, 2023 The patient was seen and evaluated this morning. He still intubated on mechanical ventilation and hemodynamically still unstable requiring small dose of norepinephrine but the echo showed moderate pericardial effusion and no tamponade physiology was noted on the echocardiogram from yesterday. The physical examination is remarkable for regular rate and rhythm with a systolic murmur at the right upper sternal border and clear breathing sounds bilaterally and no edema was noted Assessment Acute hypoxic respiratory failure Moderate circumferential pericardial effusion with no tamponade physiology Bilateral pleural effusion Adenocarcinoma of the lung with metastasis to liver and bone Multiple comorbid conditions Acute renal failure Plan Continue the current medical regimen Continue hemodynamic support Follow-up with the patient Objective - Vital Signs Vital signs: Vital Signs Temp 98.5 F 11/10/23 04:00 Pulse 70 11/10/23 07:00 Resp 24 11/10/23 05:00 BP 97/54 11/10/23 01:30 Pulse Ox 99 11/10/23 07:00 FiO2 40 11/10/23 06:24 Intake & Output 11/09/23 11/10/23 11/10/23 18:59 06:59 18:59 Intake Total 5691.846 2367.612 230 Output Total 745 840 50 Balance 1761.627 9721.612 180 Weight 92.3 kg 96 kg Intake: IV 1200 1550 200 Azithromycin 500 mg In 250 Sodium Chloride 0.9% 250 ml @ 250 mls/hr IVPB DAILY@2200 [facility] Rx#: [id number] Piperacillin-Tazobactam 3 100 100 .375 gm In Sodium Chloride 0.9% 100 ml @ 25 mls/hr IVPB Q8H [facility] Rx#: [id number] Sodium Chloride 0.9% 1, 1200 1200 100 000 ml @ 100 mls/hr IV . Q10H [facility] Rx#:[id number] Intake, IV Titration 608.215 714.612 Amount Norepinephrine 4 mg In 371.004 579.623 Sodium Chloride 0.9% 250 ml @ 0.03 MCG/KG/MIN 9. 851 mls/hr IV .Q24H [facility] Rx#:[id number] propofoL 1,000 mg In 237.211 134.989 Empty Bag 1 bag @ 15 MCG/ KG/MIN 7.757 mls/hr IV . Q12D56S [facility] Rx#:[id number] Tube Feeding 290 30 Other 60 Output: Urine 745 840 50 Other: Voiding Method Indwelling Catheter Indwelling Catheter ABP, PAP, CO, CI - Last Documented Arterial Blood Pressure 113/44 - Labs CBC & Chem 7: 11/10/23 04:32 11/10/23 04:32 Labs: Abnormal Lab Results - Last 24 Hours (Table) 11/09/23 11/09/23 11/09/23 Range/Units 01:41 19:26 23:29 RBC (4.30-5.90) m/uL Hgb (13.0-17.5) gm/dL Hct (39.0-53.0) % RDW (11.5-15.5) % Lymphocytes # (1.0-4.8) k/uL ABG pH (7.35-7.45) ABG pO2 (83-108) mmHg ABG O2 Saturation (94-97) % Hemoglobin (13.0-17.5) gm/dL Chloride (98-107) mmol/L BUN (9-20) mg/dL Creatinine (0.66-1.25) mg/dL Glucose (74-99) mg/dL POC Glucose (mg/dL) 143 H (70-110) mg/dL Calcium (8.4-10.2) mg/dL Procalcitonin 0.69 H (0.02-0.50) ng/mL Urine Blood Trace H (Negative) Ur Leukocyte Esterase Small H (Negative) Urine Bacteria Occasional H (None) /hpf Urine Mucus Rare H (None) /hpf 11/10/23 11/10/23 11/10/23 Range/Units 04:32 04:32 06:19 RBC 3.56 L (4.30-5.90) m/uL Hgb 11.0 L (13.0-17.5) gm/dL Hct 34.2 L (39.0-53.0) % RDW 18.5 H (11.5-15.5) % Lymphocytes # 0.7 L (1.0-4.8) k/uL ABG pH 7.33 L (7.35-7.45) ABG pO2 131 H (83-108) mmHg ABG O2 Saturation 99.2 H (94-97) % Hemoglobin 10.5 L (13.0-17.5) gm/dL Chloride 114 H (98-107) mmol/L BUN 37 H (9-20) mg/dL Creatinine 2.03 H (0.66-1.25) mg/dL Glucose 151 H (74-99) mg/dL POC Glucose (mg/dL) (70-110) mg/dL Calcium 7.5 L (8.4-10.2) mg/dL Procalcitonin (0.02-0.50) ng/mL Urine Blood (Negative) Ur Leukocyte Esterase (Negative) Urine Bacteria (None) /hpf Urine Mucus (None) /hpf 11/10/23 Range/Units 06:27 RBC (4.30-5.90) m/uL Hgb (13.0-17.5) gm/dL Hct (39.0-53.0) % RDW (11.5-15.5) % Lymphocytes # (1.0-4.8) k/uL ABG pH (7.35-7.45) ABG pO2 (83-108) mmHg ABG O2 Saturation (94-97) % Hemoglobin (13.0-17.5) gm/dL Chloride (98-107) mmol/L BUN (9-20) mg/dL Creatinine (0.66-1.25) mg/dL Glucose (74-99) mg/dL POC Glucose (mg/dL) 150 H (70-110) mg/dL Calcium (8.4-10.2) mg/dL Procalcitonin (0.02-0.50) ng/mL Urine Blood (Negative) Ur Leukocyte Esterase (Negative) Urine Bacteria (None) /hpf Urine Mucus (None) /hpf Microbiology - Last 24 Hours (Table) 11/08/23 21:53 Blood Culture - Preliminary Blood
--- NOTE | 2023-11-10 07:52 | XR ---
EXAMINATION TYPE: XR chest 1V portable DATE OF EXAM: 11/10/2023 COMPARISON: 11/09/2023 HISTORY: SOB, Follow Up FINDINGS: Indwelling tubes and catheters are unchanged. Pulmonary venous congestion without overt failure. Left-sided pleural effusion appears unchanged. Sta ble appearance of the cardio-mediastinal structures at this time. IMPRESSION: 1. Stable portable chest. Clinical correlation and follow up until resolution is recommended.
[2023-11-10] MEDS: FUROSEMIDE 10 MG/ML 4 ML VIAL IV STA (10:12)
--- NOTE | 2023-11-10 11:31 | P.PN ---
Subjective This is a pleasant 78 years old male with past medical history of multiple medical problems including Asthma, Cancer, COPD, GERD/Reflux, Hyperlipidemia, Hypertension, Pneumonia, Prostate Disorder, Rheumatoid Arthritis (RA), Sleep Apnea/CPAP/BIPAP Patient presents because of increased work of breathing and feeling weak. He has history of lung cancer. On admission patient was hypoxic and he was placed on BiPAP and he was saturating 94% last night however bow maker custom he desaturated more and a team was called and he had to be intubatedAnd moved to the ICU. Patient also was hypotensive and he will had to be started on pressors. Patient currently in room 263 is on mechanical ventilation and cannot provide information Currently remains on Levophed, he is afebrile, tachycardic and tachypneic Labs showing hemoglobin low 12.5 and 10.7, high creatinine 1.75 and 1.85 baseline 1.2-1.5. Liver enzymes moderately elevated D-dimer is elevated 2.5. proBNP is elevated 5450 Chest x-ray showing left lower lobe infiltrate with small pleural effusion EKG showing sinus tachycardia at [address]-T changes pH was 7.2 but came back to reference range at 7.3 Procalcitonin is elevated 0.69 CTA of the chest showing large pericardial effusion at 1.6 cm with a osteolytic metastatic lesion of T12 and possible pathological fracture at left acromion and moderate left pleural effusion 11/09 Patient remains in the ICU intubated and sedated with pulmonary/critical care team following closely This morning patient undergoing sedation holiday, he is doing well with CPAP setting Cardiology saw on the case and recommendations repeat echocardiogram tomorrow. He is on very small dose of Levophed this morning 0.01 which might be stopped later on today if he continues to improve. Vitals look stable Labs reviewed. pH 7.3. Creatinine 1.7, 1.8 and 2.0 Urine analysis reviewed, no evidence of infection Active Medications Generic Name Dose Route Start Last Admin Trade Name Freq PRN Reason Stop Dose Admin Albuterol Sulfate 2.5 mg 11/09/23 08:00 11/10/23 11:04 Albuterol Nebulized 2.5 Mg/3 Ml INHALATION 2.5 mg RT-QID CLYDE Administration Budesonide 1 mg 11/09/23 08:00 11/10/23 08:05 Budesonide 1 Mg/2 Ml Nebu INHALATION 1 mg RT-BID CLYDE Administration Chlorhexidine Gluconate 15 ml 11/09/23 09:00 11/10/23 09:00 Chlorhexidine Gluconate 15 Ml Cup MUCOUS MEM 15 ml BID CLYDE Administration Formoterol Fumarate 20 mcg 11/09/23 08:00 11/10/23 08:05 Formoterol Fumarate 20 Mcg/2 Ml Nebu INHALATION 20 mcg RT-BID CLYDE Administration Heparin Sodium (Porcine) 5,000 unit 11/09/23 09:00 11/10/23 09:01 Heparin Sodium,Porcine 5,000 Unit/Ml 1 Ml Vial SQ 5,000 unit Q12HR CLYDE Administration Sodium Chloride 1,000 mls @ 10 mls/hr 11/08/23 21:45 11/10/23 04:44 Saline 0.9% IV 100 mls/hr .Q24H CLYDE Administration Azithromycin 500 mg/ Sodium 250 mls @ 250 mls/hr 11/09/23 22:00 11/09/23 21:01 Chloride IVPB 11/10/23 22:59 250 mls/hr DAILY@2200 CLYDE Administration Protocol Piperacillin Sod/Tazobactam 100 mls @ 25 mls/hr 11/09/23 06:00 11/10/23 06:13 Sod 3.375 gm/ Sodium Chloride IVPB 25 mls/hr Q8H CLYDE Administration Protocol Norepinephrine Bitartrate 4 mg 254 mls @ 9.851 mls/hr 11/09/23 00:00 11/10/23 06:45 / Sodium Chloride IV 0.11 mcg/kg/min .Q24H CLYDE 36.119 mls/hr Titration Protocol 0.03 MCG/KG/MIN Propofol 1,000 mg/ IV Solution 100 mls @ 7.757 mls/hr 11/09/23 00:15 11/10/23 11:02 IV 5 mcg/kg/min .[id number] CLYDE 2.586 mls/hr Titration Protocol 15 MCG/KG/MIN Methylprednisolone Sodium Succinate 60 mg 11/09/23 06:00 11/10/23 06:12 Methylprednisolone Sod Succi 125 Mg/2 Ml Vial IV 60 mg Q6HR CLYDE Administration Miscellaneous Information 1 each 11/08/23 21:31 Pneumonia Protocol Utilized 1 Each Misc PO ONCE PRN Per Protocol Miscellaneous Information 1 each 11/09/23 00:24 Rx Info: Iv Contrast Was Given 1 [place] [facility] [place] 11/11/23 00:24 DAILY PRN Per Protocol Miscellaneous Information 1 each 11/10/23 05:22 Potassium Replacement Protocol 1 [facility] [place]ILY PRN Per Protocol Protocol Naloxone HCl 0.2 mg 11/08/23 21:31 Naloxone 0.4 Mg/Ml 1 Ml Vial IVP Q2M PRN Opioid Reversal Pantoprazole Sodium 40 mg 11/09/23 09:00 11/10/23 09:00 Pantoprazole 40 Mg/10 Ml Vial IV 40 mg DAILY CLYDE Administration Objective - Vital Signs Vital signs: Vital Signs Temp 98.0 F 11/10/23 08:00 Pulse 96 11/10/23 11:15 Resp 24 11/10/23 11:00 BP 97/54 11/10/23 01:30 Pulse Ox 97 11/10/23 11:00 FiO2 35 11/10/23 11:05 Intake & Output 11/09/23 11/10/23 11/10/23 18:59 06:59 18:59 Intake Total 1505.641 7459.612 630.932 Output Total 745 840 475 Balance 1576.751 0332.612 155.932 Weight 92.3 kg 96 kg Intake: IV 1200 1550 440 Azithromycin 500 mg In 250 Sodium Chloride 0.9% 250 ml @ 250 mls/hr IVPB DAILY@2200 CLYDE Rx#: [id number] Piperacillin-Tazobactam 3 100 100 .375 gm In Sodium Chloride 0.9% 100 ml @ 25 mls/hr IVPB Q8H CLYDE Rx#: [id number] Sodium Chloride 0.9% 1, 1200 1200 340 000 ml @ 10 mls/hr IV . Q24H CLYDE Rx#:[id number] Intake, IV Titration 608.215 714.612 60.932 Amount Norepinephrine 4 mg In 371.004 579.623 Sodium Chloride 0.9% 250 ml @ 0.03 MCG/KG/MIN 9. 851 mls/hr IV .Q24H CLYDE Rx#:[id number] propofoL 1,000 mg In 237.211 134.989 60.932 Empty Bag 1 bag @ 15 MCG/ KG/MIN 7.757 mls/hr IV . [id number] CLYDE Rx#:[id number] Tube Feeding 290 100 Other 60 30 Output: Urine 745 840 475 Other: Voiding Method Indwelling Catheter Indwelling Catheter Indwelling Catheter ABP, PAP, CO, CI - Last Documented Arterial Blood Pressure 117/51 - Exam -GENERAL: The patient is intubated and sedated HEENT: Pupils are round and equally reacting to light. EOMI. No scleral icterus. No conjunctival pallor. Normocephalic, atraumatic. No pharyngeal erythema. No thyromegaly. CARDIOVASCULAR: S1 and S2 present. No murmurs, rubs, or gallops. PULMONARY: Chest is clear to auscultation, no wheezing , no crackles. ABDOMEN: Soft, nontender, nondistended, normoactive bowel sounds. No palpable organomegaly. MUSCULOSKELETAL: No joint swelling or deformity. EXTREMITIES: No cyanosis, clubbing, or pedal edema. NEUROLOGICAL: Gross neurological examination did not reveal any focal deficits. SKIN: No rashes. no petechiae. - Labs CBC & Chem 7: 11/10/23 04:32 11/10/23 04:32 Labs: Abnormal Lab Results - Last 24 Hours (Table) 11/09/23 11/09/23 11/10/23 Range/Units 19:26 23:29 04:32 RBC 3.56 L (4.30-5.90) m/uL Hgb 11.0 L (13.0-17.5) gm/dL Hct 34.2 L (39.0-53.0) % RDW 18.5 H (11.5-15.5) % Lymphocytes # 0.7 L (1.0-4.8) k/uL ABG pH (7.35-7.45) ABG pO2 (83-108) mmHg ABG O2 Saturation (94-97) % Hemoglobin (13.0-17.5) gm/dL Chloride (98-107) mmol/L BUN (9-20) mg/dL Creatinine (0.66-1.25) mg/dL Glucose (74-99) mg/dL POC Glucose (mg/dL) 143 H (70-110) mg/dL Calcium (8.4-10.2) mg/dL Urine Blood Trace H (Negative) Ur Leukocyte Esterase Small H (Negative) Urine Bacteria Occasional H (None) /hpf Urine Mucus Rare H (None) /hpf 11/10/23 11/10/23 11/10/23 Range/Units 04:32 06:19 06:27 RBC (4.30-5.90) m/uL Hgb (13.0-17.5) gm/dL Hct (39.0-53.0) % RDW (11.5-15.5) % Lymphocytes # (1.0-4.8) k/uL ABG pH 7.33 L (7.35-7.45) ABG pO2 131 H (83-108) mmHg ABG O2 Saturation 99.2 H (94-97) % Hemoglobin 10.5 L (13.0-17.5) gm/dL Chloride 114 H (98-107) mmol/L BUN 37 H (9-20) mg/dL Creatinine 2.03 H (0.66-1.25) mg/dL Glucose 151 H (74-99) mg/dL POC Glucose (mg/dL) 150 H (70-110) mg/dL Calcium 7.5 L (8.4-10.2) mg/dL Urine Blood (Negative) Ur Leukocyte Esterase (Negative) Urine Bacteria (None) /hpf Urine Mucus (None) /hpf Microbiology - Last 24 Hours (Table) 11/09/23 01:25 Gram Stain - Preliminary Sputum 11/08/23 21:53 Blood Culture - Preliminary Blood Assessment and Plan Assessment: Septic shock secondary to healthcare associated pneumonia versus postobstructive pneumonia with endorgan dysfunction including hypoxia and altered mental status Acute hypoxic respiratory failure requiring intubation and mechanical ventilat ion Metabolic/toxic encephalopathy secondary to above Lung cancers with evidence of metastatic disease to the bone and possible pericardium Pericardial effusion 1.6 cm Osteolytic lesion of the 11 suspicious for metastatic disease Possible pathological fracture of the left acromion Moderate left pleural effusion could be malignant Acute COPD/asthma exacerbation Plan: Continue with antibiotic Zithromax and Zosyn Continue with sedation holiday per pulmonary/critical care team Continue with IV Solu-Medrol 80 mg every 6 hours. And Normal Saline discontinued Continue with pressors as per needed and per pulmonary/critical care team will follow the patient closely Cardiology consult GI prophylaxis Protonix DVT prophylaxis heparin Prognosis is very guarded
[2023-11-10 11:57] LABS: ABG Base Excess -2.3 mmol/L; ABG HCO3 23 mmol/L (21-25); ABG Oxygen Saturation 97.8 % (94-97); ABG PCO2 41 mmHg (35-45); ABG PH 7.36 (7.35-7.45); ABG PO2 93 mmHg (83-108); ABG TCO2 24 mmol/L (19-24)
[2023-11-10 12:28] LABS: Glucose,Whole Blood 148 mg/dL (70-110)
--- NOTE | 2023-11-10 13:26 | P.PN ---
Subjective Progress Note Date: 11/10/23 Principal diagnosis: Acute hypoxic and hypercapnic respiratory failure requiring intubation mechanical ventilation This is a 78-year-old male patient with a history of hypertension hyperlipidemia, mild intermittent bronchial asthma, former smoker. 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 Most recently taking Braftovi and Mektovi, and also Zometa infusions. Established Oncologist is Dr. Leigh. He had a follow-up PET scan on September 22, 2023 that revealed minimal response to therapy. Left lower lobe pulmonary nodule not significantly changed from previous. Decreasing FDG activity in the left perihilar activity as well as left pulmonary hilum lymph node. FDG activity within the osseous structures is mixed response and some decrease in FDG while others have increased. New small left pleural effusion. Of note, patient recently treated inpatient for left lower lobe pneumonia in August,. Discharged on 09/27/23 with course of Moxifloxacin. Patient apparently presented back to the ED late last night with a chief complaint of dyspnea. Currently, intubated and unable to provide information for HPI. Family is present at bedside, stating that the patient was not acting himself at home. Reportedly intermittently confused over the last 2 weeks. Also, noted to be more short of breath and usual. Initial chest x-ray showing a persistent left lower lobe infiltrate and/or small left pleural effusion. Patient was admitted with a diagnosis of pneumonia. Late last night, soon after his admission, patient was found unresponsive with agonal breathing pattern. Patient's family was contacted, apparently he is a full code. I recommended that the patient be intubated. METAL TECHNICIAN presented at the bedside performed rapid sequence intubation. He was then transferred to the intensive care unit. Initial blood gas consistent with hypercapnic respiratory failure. PaO2 118, pCO2 of 63, pH of 7.21. This is done with initial ventilator settings of assist-control, respiratory rate 18, tidal volume 450, FiO2 of 100%, and PEEP of 5. Respiratory rate was increased to 24. Weaned FiO2 down to 80%. He is currently synchronous mechanical ventilator, sedated on propofol at 25 mcg/kg/min. No significant endotracheal secretions. Peak pressures are low at 18. Follow-up chest x-ray shows endotracheal tube about 2.5 cm from the júnior. Orogastric tube extends with into the stomach. Bilateral pleural effusions, greater on the left. Nonspecific airspace opacities in the mid and lower lung zones bilaterally left greater than right. Compressive atelectasis versus infective infiltrates. Patient is currently empirically covered on antibiotics in the form of azithromycin and Zosyn. He is afebrile. He is hypotensive, currently requiring norepinephrine which is infusing at 0.14 mcg/kg/min. Arterial line was established by METAL TECHNICIAN. CBC: WBC count 6, hemoglobin 12.5, hematocrit 40.9, platelets 171. CMP: Sodium 137, potassium 4.7, chloride 106, serum bicarb 25, BUN 27, creatinine 1.75, glucose 94. LFTs mildly elevated. NT proBNP elevated at 5450. Troponin less than 0.012. D-dimer was elevated at 2.[address] angio protocol was initiated. Poor contrast bolus timing, however, no obvious saddle pulmonary embolism identified. Large pericardial effusion measuring 1.6 cm. He has bilateral pleural effusions left greater than right, with associated bilateral compressive atelectasis versus infiltrates. 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 Brain CT was also done while downstairs, no acute intracranial process noted. Patient was evaluated today on 11/10/2023, remains in the ICU remains intubated and mechanically ventilated. Patient is on assist-control rate of 24 tidal volume 450 FiO2 50% and I cut it down to 35%, PEEP of 5. ABG this morning showed a pO2 of 131 pCO2 42 pH of 7.33. Patient is requiring norepinephrine at 0.14 mcg/kg/min he is also on propofol at 30 mg/kg/min IV fluid running at 100 cc/h. Patient remains on antibiotics empirically in the form of Zithromax and Zosyn. Echocardiogram showed small pericardial effusion, however could not assess LV function, cardiology is planning repeat echocardiogram to decide whether the patient may require pericardiocentesis presently no evidence of tamponade. Chest x-ray is showing evidence of pulmonary vascular congestion, suggestive of mild congestive heart failure, there is left pleural effusion, left congestive heart failure does not seem to be overt. Labs today WBC 7.5 hemoglobin is 11. Basic metabolic profile is normal BUN is 37 creatinine 2.03 slightly worse compared to admission creatinine of 1.75. Objective - Vital Signs Vital signs: Vital Signs Temp 99.0 F 11/10/23 12:00 Pulse 101 H 11/10/23 12:15 Resp 12 11/10/23 12:15 BP 97/54 11/10/23 01:30 Pulse Ox 96 11/10/23 12:15 FiO2 40 11/10/23 12:00 Intake & Output 11/09/23 11/10/23 11/10/23 18:59 06:59 18:59 Intake Total 9078.456 3170.612 873.451 Output Total 745 840 825 Balance 4288.378 8625.612 48.451 Weight 92.3 kg 96 kg Intake: IV 1200 1550 460 Azithromycin 500 mg In 250 Sodium Chloride 0.9% 250 ml @ 250 mls/hr IVPB DAILY@2200 CLYDE Rx#: [id number] Piperacillin-Tazobactam 3 100 100 .375 gm In Sodium Chloride 0.9% 100 ml @ 25 mls/hr IVPB Q8H CLYDE Rx#: [id number] Sodium Chloride 0.9% 1, 1200 1200 360 000 ml @ 10 mls/hr IV . Q24H CLYDE Rx#:[id number] Intake, IV Titration 608.215 714.612 283.451 Amount Norepinephrine 4 mg In 371.004 579.623 221.312 Sodium Chloride 0.9% 250 ml @ 0.03 MCG/KG/MIN 9. 851 mls/hr IV .Q24H CLYDE Rx#:[id number] propofoL 1,000 mg In 237.211 134.989 62.139 Empty Bag 1 bag @ 15 MCG/ KG/MIN 7.757 mls/hr IV . [id number] CLYDE Rx#:[id number] Tube Feeding 290 100 Other 60 30 Output: Urine 745 840 825 Other: Voiding Method Indwelling Catheter Indwelling Catheter Indwelling Catheter ABP, PAP, CO, CI - Last Documented Arterial Blood Pressure 128/53 - Exam GENERAL EXAM: Revealed a 78-year-old white male intubated, mechanically ventilated, on propofol however he is arousable and follows simple instructions. HEAD: Normocephalic and atraumatic EYES: PERRLA, EOMI, nonicteric. NOSE: Clear with pink turbinates. THROAT: No erythema or exudates. Endotracheal tube and orogastric tube are int act. NECK: No masses, no JVD. CHEST: No chest wall deformity. LUNGS: Slightly diminished breath sounds at the bases, no crackles rhonchi or wheezes CVS: S1 and S2 normal with no audible murmur, regular rhythm. No extra heart sounds ABDOMEN: No hepatosplenomegaly, active bowel sounds, no guarding or rigidity. SKIN: No rashes CENTRAL NERVOUS SYSTEM: Patient is arousable, on propofol, follows simple instructions no gross focal neurologic deficits. EXTREMITIES: 1+ bipedal edema, good pulses bilaterally. - Labs CBC & Chem 7: 11/10/23 04:32 11/10/23 04:32 Labs: Abnormal Lab Results - Last 24 Hours (Table) 11/09/23 11/09/23 11/10/23 Range/Units 19:26 23:29 04:32 RBC 3.56 L (4.30-5.90) m/uL Hgb 11.0 L (13.0-17.5) gm/dL Hct 34.2 L (39.0-53.0) % RDW 18.5 H (11.5-15.5) % Lymphocytes # 0.7 L (1.0-4.8) k/uL ABG pH (7.35-7.45) ABG pO2 (83-108) mmHg ABG O2 Saturation (94-97) % Hemoglobin (13.0-17.5) gm/dL Chloride (98-107) mmol/L BUN (9-20) mg/dL Creatinine (0.66-1.25) mg/dL Glucose (74-99) mg/dL POC Glucose (mg/dL) 143 H (70-110) mg/dL Calcium (8.4-10.2) mg/dL Urine Blood Trace H (Negative) Ur Leukocyte Esterase Small H (Negative) Urine Bacteria Occasional H (None) /hpf Urine Mucus Rare H (None) /hpf 11/10/23 11/10/23 11/10/23 Range/Units 04:32 06:19 06:27 RBC (4.30-5.90) m/uL Hgb (13.0-17.5) gm/dL Hct (39.0-53.0) % RDW (11.5-15.5) % Lymphocytes # (1.0-4.8) k/uL ABG pH 7.33 L (7.35-7.45) ABG pO2 131 H (83-108) mmHg ABG O2 Saturation 99.2 H (94-97) % Hemoglobin 10.5 L (13.0-17.5) gm/dL Chloride 114 H (98-107) mmol/L BUN 37 H (9-20) mg/dL Creatinine 2.03 H (0.66-1.25) mg/dL Glucose 151 H (74-99) mg/dL POC Glucose (mg/dL) 150 H (70-110) mg/dL Calcium 7.5 L (8.4-10.2) mg/dL Urine Blood (Negative) Ur Leukocyte Esterase (Negative) Urine Bacteria (None) /hpf Urine Mucus (None) /hpf 11/10/23 11/10/23 Range/Units 11:55 12:27 RBC (4.30-5.90) m/uL Hgb (13.0-17.5) gm/dL Hct (39.0-53.0) % RDW (11.5-15.5) % Lymphocytes # (1.0-4.8) k/uL ABG pH (7.35-7.45) ABG pO2 (83-108) mmHg ABG O2 Saturation 97.8 H (94-97) % Hemoglobin 10.5 L (13.0-17.5) gm/dL Chloride (98-107) mmol/L BUN (9-20) mg/dL Creatinine (0.66-1.25) mg/dL Glucose (74-99) mg/dL POC Glucose (mg/dL) 148 H (70-110) mg/dL Calcium (8.4-10.2) mg/dL Urine Blood (Negative) Ur Leukocyte Esterase (Negative) Urine Bacteria (None) /hpf Urine Mucus (None) /hpf Microbiology - Last 24 Hours (Table) 11/09/23 01:25 Gram Stain - Preliminary Sputum Sputum Culture - Preliminary Yeast species 11/08/23 21:53 Blood Culture - Preliminary Blood Assessment and Plan Assessment: Impression: Acute hypoxemic and hypercapnic respiratory failure, multifactorial secondary to bilateral pleural effusions with likely associated compressive atelectasis vs infectious process, cannot rule out pneumonia metastatic stage IV lung cancer, underlying COPD based on his previous PFT and previous outpatient workup, mild to moderate. Acute hypotension, following intubation, currently being fluid resuscitated and now on vasopressors. Still doubt sepsis or septic shock. Elevated D-dimer, CT angio protocol, no obvious saddle pulmonary embolism. Large pericardial effusion, measuring 1.[address]; echocardiogram was noted, patient is being followed by cardiology, repeat echo is pending Acute kidney injury secondary to hypotension and ATN Stage IV non-small cell lung cancer, currently on Braftovi and Mektovi. Chronic anemia History of hypertension History of hyperlipidemia History of obstructive sleep apnea Former tobacco dependence Recommendation: Continue ventilatory support Continue antibiotics empirically Continue pressors/hemodynamic support Hold enteral feeding as I may give the patient today a weaning trial if he passes weaning parameters. Check weaning parameters today and decide whether the patient could be extubated. Awaiting further cultures which are pending Continue to monitor closely his renal profile as the patient may have developed acute kidney injury Discussed his condition with cardiology and repeat echocardiogram is pending Continue GI DVT prophylaxis Nutritional support if the patient is not extubated today. Patient remains critically ill, Critical care time is over 30 minutes Time with Patient: Greater than 30
--- NOTE | 2023-11-10 15:47 | P.PN ---
Subjective Progress Note Date: 11/10/23 No acute events. Remains in ICU on ventilator. Pt is responding to verbal stimuli and opens his eyes when saying his name and able to squeeze hands upon command. Counts stable Objective - Vital Signs Vital signs: Vital Signs Temp 99.0 F 11/10/23 12:00 Pulse 101 H 11/10/23 12:15 Resp 12 11/10/23 12:15 BP 97/54 11/10/23 01:30 Pulse Ox 96 11/10/23 12:15 FiO2 40 11/10/23 12:00 Intake & Output 11/09/23 11/10/23 11/10/23 18:59 06:59 18:59 Intake Total 8944.423 0065.612 849.809 Output Total 745 840 825 Balance 6116.882 7602.612 24.809 Weight 92.3 kg 96 kg Intake: IV 1200 1550 460 Azithromycin 500 mg In 250 Sodium Chloride 0.9% 250 ml @ 250 mls/hr IVPB DAILY@2200 [facility] Rx#: [id number] Piperacillin-Tazobactam 3 100 100 .375 gm In Sodium Chloride 0.9% 100 ml @ 25 mls/hr IVPB Q8H [facility] Rx#: [id number] Sodium Chloride 0.9% 1, 1200 1200 360 000 ml @ 10 mls/hr IV . Q24H [facility] Rx#:[id number] Intake, IV Titration 608.215 714.612 259.809 Amount Norepinephrine 4 mg In 371.004 579.623 197.670 Sodium Chloride 0.9% 250 ml @ 0.03 MCG/KG/MIN 9. 851 mls/hr IV .Q24H [facility] Rx#:[id number] propofoL 1,000 mg In 237.211 134.989 62.139 Empty Bag 1 bag @ 15 MCG/ KG/MIN 7.757 mls/hr IV . [id number] [facility] Rx#:[id number] Tube Feeding 290 100 Other 60 30 Output: Urine 745 840 825 Other: Voiding Method Indwelling Catheter Indwelling Catheter Indwelling Catheter ABP, PAP, CO, CI - Last Documented Arterial Blood Pressure 128/53 - Constitutional General appearance: Present: average body habitus, no acute distress - EENT Eyes: Present: anicteric sclerae, EOMI ENT: Present: hearing grossly normal - Respiratory Details: ventilated breath sounds - Cardiovascular Details: skin warm and dry - Integumentary Integumentary: Absent: cyanotic - Neurologic Neurologic Comment(s): more alert today, opening eyes to verbal stimuli - Labs CBC & Chem 7: 11/10/23 04:32 11/10/23 04:32 Labs: Abnormal Lab Results - Last 24 Hours (Table) 11/09/23 11/09/23 11/10/23 Range/Units 19:26 23:29 04:32 RBC 3.56 L (4.30-5.90) m/uL Hgb 11.0 L (13.0-17.5) gm/dL Hct 34.2 L (39.0-53.0) % RDW 18.5 H (11.5-15.5) % Lymphocytes # 0.7 L (1.0-4.8) k/uL ABG pH (7.35-7.45) ABG pO2 (83-108) mmHg ABG O2 Saturation (94-97) % Hemoglobin (13.0-17.5) gm/dL Chloride (98-107) mmol/L BUN (9-20) mg/dL Creatinine (0.66-1.25) mg/dL Glucose (74-99) mg/dL POC Glucose (mg/dL) 143 H (70-110) mg/dL Calcium (8.4-10.2) mg/dL Urine Blood Trace H (Negative) Ur Leukocyte Esterase Small H (Negative) Urine Bacteria Occasional H (None) /hpf Urine Mucus Rare H (None) /hpf 11/10/23 11/10/23 11/10/23 Range/Units 04:32 06:19 06:27 RBC (4.30-5.90) m/uL Hgb (13.0-17.5) gm/dL Hct (39.0-53.0) % RDW (11.5-15.5) % Lymphocytes # (1.0-4.8) k/uL ABG pH 7.33 L (7.35-7.45) ABG pO2 131 H (83-108) mmHg ABG O2 Saturation 99.2 H (94-97) % Hemoglobin 10.5 L (13.0-17.5) gm/dL Chloride 114 H (98-107) mmol/L BUN 37 H (9-20) mg/dL Creatinine 2.03 H (0.66-1.25) mg/dL Glucose 151 H (74-99) mg/dL POC Glucose (mg/dL) 150 H (70-110) mg/dL Calcium 7.5 L (8.4-10.2) mg/dL Urine Blood (Negative) Ur Leukocyte Esterase (Negative) Urine Bacteria (None) /hpf Urine Mucus (None) /hpf 11/10/23 11/10/23 Range/Units 11:55 12:27 RBC (4.30-5.90) m/uL Hgb (13.0-17.5) gm/dL Hct (39.0-53.0) % RDW (11.5-15.5) % Lymphocytes # (1.0-4.8) k/uL ABG pH (7.35-7.45) ABG pO2 (83-108) mmHg ABG O2 Saturation 97.8 H (94-97) % Hemoglobin 10.5 L (13.0-17.5) gm/dL Chloride (98-107) mmol/L BUN (9-20) mg/dL Creatinine (0.66-1.25) mg/dL Glucose (74-99) mg/dL POC Glucose (mg/dL) 148 H (70-110) mg/dL Calcium (8.4-10.2) mg/dL Urine Blood (Negative) Ur Leukocyte Esterase (Negative) Urine Bacteria (None) /hpf Urine Mucus (None) /hpf Microbiology - Last 24 Hours (Table) 11/09/23 01:25 Gram Stain - Preliminary Sputum Sputum Culture - Preliminary Yeast species 11/08/23 21:53 Blood Culture - Preliminary Blood Assessment and Plan (1) Respiratory arrest Current Visit: Yes Status: Acute Priority: High Code(s): R09.2 - RESPIRATORY ARREST SNOMED Code(s): 13582335 (2) Lung cancer Current Visit: Yes Status: Acute Priority: High Code(s): C34.90 - MALIGNANT NEOPLASM OF UNSP PART OF UNSP BRONCHUS OR LUNG SNOMED Code(s): 722835213 (3) Pericardial effusion Current Visit: Yes Status: Acute Priority: High Code(s): I31.39 - OTHER PERICARDIAL EFFUSION (NONINFLAMMATORY) SNOMED Code(s): 010383592 Plan: Acute respiratory failure, pericardial effusion: Presented to the emergency room for shortness of breath. Due to respiratory distress patient was transferred to ICU and was intubated -CTA of chest showed large pericardial effusion measuring 1.6 cm negative for PE. No RV strain noted. 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 Moderate left and small right pleural effusions. Compressive atelectasis in the bilateral dependent lung garcia, left greater than right. -Zosyn and Azithromycin started -Cardiology has been consulted and echocardiogram ordered. May need pericardial window. If obtained, will request cytology on pericardial fluid -Echo revealed moderate pericardial effussion, plan to repeat echo in the next cpl days -CXR today showing stable pulmonary venous congestion without overt failure -Defer management to ICU and cardiology teams Discussed case with ICU team today NSCLC: -Oncology history and plan as dictated in HPI -He continues Braftovi at 150 mg daily and Mektovi at 30 mg twice daily. He has been taking Braftovi at 150 mg daily since 10/15/2023 -Hold Braftovi/Mektovi while inpt -Despitw having to hold treatment multiple times over the last couple months due to repeat hospitalizations, his disease has been overall stable. Don't believe current acute respiratory failure is r/t disease progression. -Repeat staging scans planned for later next month Dr. mishraests: I have seen and examined patient, performed H&P, developed impression and plan of care. Discussed with dictator. Agree with documentation, dictated as a scribe
[2023-11-11 00:51] LABS: Glucose,Whole Blood 102 mg/dL (70-110)
[2023-11-11 05:45] LABS: African American GFR (CKD) 42 (>60 ml/min/1.73 sqM); Anion Gap 5 mmol/L; Blood Urea Nitrogen 37 mg/dL (9-20); Calcium 7.1 mg/dL (8.4-10.2); Carbon Dioxide 23 mmol/L (22-30); Chloride 113 mmol/L (98-107); Glucose 112 mg/dL (74-99); Non-African American GFR(CKD) 36 (>60 ml/min/1.73 sqM); Sodium 141 mmol/L (137-145)
[2023-11-11 05:47] LABS: Anisocytosis Slight; Basophils % (A) 0 %; Eosinophils % (A) 0 %; HCT 28.1 % (39.0-53.0); Hypochromasia Slight; Lymphocytes # (A) 0.6 k/uL (1.0-4.8); Lymphocytes % (A) 6 %; MCH 30.7 pg (25.0-35.0); MCV 95.9 fL (80.0-100.0); Macrocytosis Slight; Mean Platelet Volume 9.8; Monocytes # (A) 0.5 k/uL (0-1.0); Monocytes % (A) 5 %; Neutrophils # (A) 8.3 k/uL (1.3-7.7); Neutrophils % (A) 88 %; Platelet Count 126 k/uL (150-450); RBC 2.93 m/uL (4.30-5.90); RDW 18.8 % (11.5-15.5); WBC 9.5 k/uL (3.8-10.6)
[2023-11-11 06:55] LABS: Glucose,Whole Blood 117 mg/dL (70-110)
--- NOTE | 2023-11-11 07:04 | P.PN ---
Subjective Progress Note Date: 11/11/23 This is a 78-year-old gentleman with a past medical history significant for adenocarcinoma of the lung with metastasis to the liver as well as the bone was not responsive to chemotherapy based on the last PET scan as well as multiple comorbid conditions who presented to the emergency department complaining of shortness of breath with to be consulted to see the patient for further evaluation of pericardial effusion. The patient was seen in the ICU and currently is intubated on mechanical ventilation and the history was taken from the chart and nurse taking care of the patient. The patient presented with increasing shortness of breath with no symptoms of chest pain or chest discomfort or dizziness or lightheadedness or presyncope or syncope. He was found to be in acute respiratory distress and he underwent intubation in the emergency department subsequently he was placed on mechanical ventilation and admitted to the intensive care unit. He underwent further investigation including an EKG and that showed sinus mechanism and subsequently chest x-ray showed cardiomegaly. Subsequently CT scan of the chest was performed and showed large pericardial effusion with moderate pleural effusion. The patient currently is hemodynamically unstable and requiring small dose of norepinephrine. We are going to obtain an echocardiogram as soon as possible and if he does have any evidence of tamponade physiology the patient need to undergo pericardial window and not pericardiocentesis just because of the nature of the pericardial effusion which is malignant and likely to be recurrent. The physical examination is remarkable for regular rate and rhythm with a distant heart sounds and a soft systolic murmur at the right upper sternal border with diminished breathing sounds bilaterally and no edema was noted in the lower extremities November 10, 2023 The patient was seen and evaluated this morning. He still intubated on mechanical ventilation and hemodynamically still unstable requiring small dose of norepinephrine but the echo showed moderate pericardial effusion and no tamponade physiology was noted on the echocardiogram from yesterday. The physical examination is remarkable for regular rate and rhythm with a systolic murmur at the right upper sternal border and clear breathing sounds bilaterally and no edema was noted November 11, 2023 The patient was seen and evaluated this morning. He is off norepinephrine at this point. I am going to obtain an echo to assess for any change in the size of the pericardial effusion but he is maintaining normal sinus mechanism. No symptoms of chest pain or chest discomfort. And the patient is extubated as well. The physical examination is remarkable for regular rhythm with a soft systolic murmur and clear breathing sounds bilaterally and no edema was noted in the lower extremities Assessment Acute hypoxic respiratory failure Moderate circumferential pericardial effusion with no tamponade physiology Bilateral pleural effusion Adenocarcinoma of the lung with metastasis to liver and bone Multiple comorbid conditions Acute renal failure Plan Continue the current medical regimen Repeat the echo to assess for any change in the size of pericardial effusion Follow-up with the patient Objective - Vital Signs Vital signs: Vital Signs Temp 98.2 F 11/11/23 04:00 Pulse 69 11/11/23 06:45 Resp 16 11/11/23 07:00 BP 119/6 11/11/23 03:45 Pulse Ox 100 11/11/23 07:00 FiO2 40 11/10/23 12:00 Intake & Output 11/10/23 11/11/23 11/11/23 18:59 06:59 18:59 Intake Total 2173.421 714.517 20 Output Total 2075 965 50 Balance 98.421 -250.483 -30 Weight 94.1 kg Intake: IV 670 590 20 Azithromycin 500 mg In 250 Sodium Chloride 0.9% 250 ml @ 250 mls/hr IVPB DAILY@2200 [facility] Rx#: [id number] Piperacillin-Tazobactam 3 200 100 .375 gm In Sodium Chloride 0.9% 100 ml @ 25 mls/hr IVPB Q8H [facility] Rx#: [id number] Sodium Chloride 0.9% 1, 470 240 20 000 ml @ 10 mls/hr IV . Q24H [facility] Rx#:[id number] Intake, IV Titration 373.421 124.517 Amount Norepinephrine 4 mg In 311.282 124.517 Sodium Chloride 0.9% 250 ml @ 0.03 MCG/KG/MIN 9. 851 mls/hr IV .Q24H [facility] Rx#:[id number] propofoL 1,000 mg In 62.139 Empty Bag 1 bag @ 15 MCG/ KG/MIN 7.757 mls/hr IV . [id number] [facility] Rx#:[id number] Oral 1000 Tube Feeding 100 Other 30 Output: Urine 2075 965 50 Other: Voiding Method Indwelling Catheter Indwelling Catheter ABP, PAP, CO, CI - Last Documented Arterial Blood Pressure 128/62 - Labs CBC & Chem 7: 11/11/23 05:10 11/11/23 05:10 Labs: Abnormal Lab Results - Last 24 Hours (Table) 11/10/23 11/10/23 11/11/23 Range/Units 11:55 12:27 05:10 RBC 2.93 L (4.30-5.90) m/uL Hgb 9.0 L D (13.0-17.5) gm/dL Hct 28.1 L (39.0-53.0) % RDW 18.8 H (11.5-15.5) % Plt Count 126 L (150-450) k/uL Neutrophils # 8.3 H (1.3-7.7) k/uL Lymphocytes # 0.6 L (1.0-4.8) k/uL ABG O2 Saturation 97.8 H (94-97) % Hemoglobin 10.5 L (13.0-17.5) gm/dL Chloride (98-107) mmol/L BUN (9-20) mg/dL Creatinine (0.66-1.25) mg/dL Glucose (74-99) mg/dL POC Glucose (mg/dL) 148 H (70-110) mg/dL Calcium (8.4-10.2) mg/dL 11/11/23 11/11/23 Range/Units 05:10 06:52 RBC (4.30-5.90) m/uL Hgb (13.0-17.5) gm/dL Hct (39.0-53.0) % RDW (11.5-15.5) % Plt Count (150-450) k/uL Neutrophils # (1.3-7.7) k/uL Lymphocytes # (1.0-4.8) k/uL ABG O2 Saturation (94-97) % Hemoglobin (13.0-17.5) gm/dL Chloride 113 H (98-107) mmol/L BUN 37 H (9-20) mg/dL Creatinine 1.75 H (0.66-1.25) mg/dL Glucose 112 H (74-99) mg/dL POC Glucose (mg/dL) 117 H (70-110) mg/dL Calcium 7.1 L (8.4-10.2) mg/dL Microbiology - Last 24 Hours (Table) 11/08/23 21:53 Blood Culture - Preliminary Blood 11/09/23 01:25 Gram Stain - Preliminary Sputum Sputum Culture - Preliminary Yeast species
--- NOTE | 2023-11-11 08:07 | XR ---
EXAMINATION TYPE: XR chest 1V portable DATE OF EXAM: 11/11/2023 HISTORY: Shortness of breath. COMPARISON: 11/10/2023 TECHNIQUE: Single view of the chest is submitted. FINDINGS: Endotracheal tube and NG tube have been removed. Persistent basilar infiltrates and effusions. The heart is stable. Hilar and mediastinal structures are within normal limits. Degenerative changes are seen of the dorsal spine. IMPRESSION: 1. Persistent basilar infiltrates and effusions.
--- NOTE | 2023-11-11 08:43 | US ---
EXAMINATION TYPE: US chest DATE OF EXAM: 11/11/2023 COMPARISON: Radiograph same day CLINICAL INDICATION: Male, 78 years old with Markings for thoracentesis by pulmonary staff; Chest mar marla was marked on 11/08/2024 TECHNIQUE: Targeted ultrasound of the posterior lower bilateral hemithoraces EXAM MEASUREMENTS: Left Pleural Effusion pocket size: 4.7 cm Left skin surface to fluid distance: 2.1 cm Left side marked for possible thoracentesis outside the dept. Pulmonologists are able to review the images in the patient?s EMR. IMPRESSIONS: Small left and trace right pleural effusions.
[2023-11-11 11:18] LABS: Glucose,Whole Blood 124 mg/dL (70-110)
--- NOTE | 2023-11-11 13:09 | P.PN ---
Subjective Progress Note Date: 11/11/23 Principal diagnosis: Acute hypoxic and hypercapnic respiratory failure requiring intubation mechanical ventilation This is a 78-year-old male patient with a history of hypertension hyperlipidemia, mild intermittent bronchial asthma, former smoker. 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 Most recently taking Braftovi and Mektovi, and also Zometa infusions. Established Oncologist is Dr. Leigh. He had a follow-up PET scan on September 22, 2023 that revealed minimal response to therapy. Left lower lobe pulmonary nodule not significantly changed from previous. Decreasing FDG activity in the left perihilar activity as well as left pulmonary hilum lymph node. FDG activity within the osseous structures is mixed response and some decrease in FDG while others have increased. New small left pleural effusion. Of note, patient recently treated inpatient for left lower lobe pneumonia in August,. Discharged on 09/27/23 with course of Moxifloxacin. Patient apparently presented back to the ED late last night with a chief complaint of dyspnea. Currently, intubated and unable to provide information for HPI. Family is present at bedside, stating that the patient was not acting himself at home. Reportedly intermittently confused over the last 2 weeks. Also, noted to be more short of breath and usual. Initial chest x-ray showing a persistent left lower lobe infiltrate and/or small left pleural effusion. Patient was admitted with a diagnosis of pneumonia. Late last night, soon after his admission, patient was found unresponsive with agonal breathing pattern. Patient's family was contacted, apparently he is a full code. I recommended that the patient be intubated. ASSISTED LIVING COORDINATOR presented at the bedside performed rapid sequence intubation. He was then transferred to the intensive care unit. Initial blood gas consistent with hypercapnic respiratory failure. PaO2 118, pCO2 of 63, pH of 7.21. This is done with initial ventilator settings of assist-control, respiratory rate 18, tidal volume 450, FiO2 of 100%, and PEEP of 5. Respiratory rate was increased to 24. Weaned FiO2 down to 80%. He is currently synchronous mechanical ventilator, sedated on propofol at 25 mcg/kg/min. No significant endotracheal secretions. Peak pressures are low at 18. Follow-up chest x-ray shows endotracheal tube about 2.5 cm from the júnior. Orogastric tube extends with into the stomach. Bilateral pleural effusions, greater on the left. Nonspecific airspace opacities in the mid and lower lung zones bilaterally left greater than right. Compressive atelectasis versus infective infiltrates. Patient is currently empirically covered on antibiotics in the form of azithromycin and Zosyn. He is afebrile. He is hypotensive, currently requiring norepinephrine which is infusing at 0.14 mcg/kg/min. Arterial line was established by ASSISTED LIVING COORDINATOR. CBC: WBC count 6, hemoglobin 12.5, hematocrit 40.9, platelets 171. CMP: Sodium 137, potassium 4.7, chloride 106, serum bicarb 25, BUN 27, creatinine 1.75, glucose 94. LFTs mildly elevated. NT proBNP elevated at 5450. Troponin less than 0.012. D-dimer was elevated at 2.[address] angio protocol was initiated. Poor contrast bolus timing, however, no obvious saddle pulmonary embolism identified. Large pericardial effusion measuring 1.6 cm. He has bilateral pleural effusions left greater than right, with associated bilateral compressive atelectasis versus infiltrates. 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 Brain CT was also done while downstairs, no acute intracranial process noted. Patient was evaluated today on 11/10/2023, remains in the ICU remains intubated and mechanically ventilated. Patient is on assist-control rate of 24 tidal volume 450 FiO2 50% and I cut it down to 35%, PEEP of 5. ABG this morning showed a pO2 of 131 pCO2 42 pH of 7.33. Patient is requiring norepinephrine at 0.14 mcg/kg/min he is also on propofol at 30 mg/kg/min IV fluid running at 100 cc/h. Patient remains on antibiotics empirically in the form of Zithromax and Zosyn. Echocardiogram showed small pericardial effusion, however could not assess LV function, cardiology is planning repeat echocardiogram to decide whether the patient may require pericardiocentesis presently no evidence of tamponade. Chest x-ray is showing evidence of pulmonary vascular congestion, suggestive of mild congestive heart failure, there is left pleural effusion, left congestive heart failure does not seem to be overt. Labs today WBC 7.5 hemoglobin is 11. Basic metabolic profile is normal BUN is 37 creatinine 2.03 slightly worse compared to admission creatinine of 1.75. Patient was today on 11/11/2023, remains in the ICU, patient was extubated yesterday, tolerated the extubation well, does not seem to be in any distress, on 4 L nasal cannula, blood pressure is stable, patient remains on Zosyn empirically, remains on diuretics. Follow-up ultrasound of the chest showed sma ll pocket of fluid in the left pleural space, hence I have no plans to perform thoracentesis on this patient his initial echocardiogram showed moderate pericardial effusion, the plan was to repeat his echocardiogram and decide whether the patient will benefit from pericardiocentesis. Clinically the patient is doing well at present, basically asymptomatic, feels much better compared to how he felt when he came in chest x-ray shows bibasilar infiltrates and effusions. Left more so than right WBC count is 9.5 hemoglobin is 9 basic metabolic profile is normal BUN is 37 creatinine 1.75, steadily improving over the last couple days Objective - Vital Signs Vital signs: Vital Signs Temp 97.7 F 11/11/23 08:00 Pulse 66 11/11/23 12:07 Resp 13 11/11/23 12:00 BP 98/62 11/11/23 12:00 Pulse Ox 99 11/11/23 12:00 FiO2 40 11/10/23 12:00 Intake & Output 11/10/23 11/11/23 11/11/23 18:59 06:59 18:59 Intake Total 2173.421 714.517 120 Output Total 2075 965 445 Balance 98.421 -250.483 -325 Weight 94.1 kg 94.1 kg Intake: IV 670 590 120 Azithromycin 500 mg In 250 Sodium Chloride 0.9% 250 ml @ 250 mls/hr IVPB DAILY@2200 [facility] Rx#: [id number] Piperacillin-Tazobactam 3 200 100 .375 gm In Sodium Chloride 0.9% 100 ml @ 25 mls/hr IVPB Q8H [facility] Rx#: [id number] Sodium Chloride 0.9% 1, 470 240 120 000 ml @ 10 mls/hr IV . Q24H [facility] Rx#:[id number] Intake, IV Titration 373.421 124.517 Amount Norepinephrine 4 mg In 311.282 124.517 Sodium Chloride 0.9% 250 ml @ 0.03 MCG/KG/MIN 9. 851 mls/hr IV .Q24H [facility] Rx#:[id number] propofoL 1,000 mg In 62.139 Empty Bag 1 bag @ 15 MCG/ KG/MIN 7.757 mls/hr IV . [id number] [facility] Rx#:[id number] Oral 1000 Tube Feeding 100 Other 30 Output: Urine 2075 965 445 Other: Voiding Method Indwelling Catheter Indwelling Catheter Indwelling Catheter ABP, PAP, CO, CI - Last Documented Arterial Blood Pressure 121/46 - Exam GENERAL EXAM: Revealed a 78-year-old white male on 4 L nasal cannula, not in distress HEAD: Normocephalic and atraumatic EYES: PERRLA, EOMI, nonicteric. NOSE: Clear with pink turbinates. THROAT: No erythema or exudates. Endotracheal tube and orogastric tube are intact. NECK: No masses, no JVD. CHEST: No chest wall deformity. LUNGS: Minimal crackles at the bases no rhonchi no wheezes CVS: S1 and S2 normal with no audible murmur, regular rhythm. No extra heart sounds ABDOMEN: No hepatosplenomegaly, active bowel sounds, no guarding or rigidity. SKIN: No rashes CENTRAL NERVOUS SYSTEM: Alert and oriented x 3 no gross focal neurologic deficit EXTREMITIES: 1+ bipedal edema, good pulses bilaterally. - Labs CBC & Chem 7: 11/11/23 05:10 11/11/23 05:10 Labs: Abnormal Lab Results - Last 24 Hours (Table) 11/11/23 11/11/23 11/11/23 Range/Units 05:10 05:10 06:52 RBC 2.93 L (4.30-5.90) m/uL Hgb 9.0 L D (13.0-17.5) gm/dL Hct 28.1 L (39.0-53.0) % RDW 18.8 H (11.5-15.5) % Plt Count 126 L (150-450) k/uL Neutrophils # 8.3 H (1.3-7.7) k/uL Lymphocytes # 0.6 L (1.0-4.8) k/uL Chloride 113 H (98-107) mmol/L BUN 37 H (9-20) mg/dL Creatinine 1.75 H (0.66-1.25) mg/dL Glucose 112 H (74-99) mg/dL POC Glucose (mg/dL) 117 H (70-110) mg/dL Calcium 7.1 L (8.4-10.2) mg/dL 11/11/23 Range/Units 11:16 RBC (4.30-5.90) m/uL Hgb (13.0-17.5) gm/dL Hct (39.0-53.0) % RDW (11.5-15.5) % Plt Count (150-450) k/uL Neutrophils # (1.3-7.7) k/uL Lymphocytes # (1.0-4.8) k/uL Chloride (98-107) mmol/L BUN (9-20) mg/dL Creatinine (0.66-1.25) mg/dL Glucose (74-99) mg/dL POC Glucose (mg/dL) 124 H (70-110) mg/dL Calcium (8.4-10.2) mg/dL Microbiology - Last 24 Hours (Table) 11/09/23 01:25 Gram Stain - Final Sputum Sputum Culture - Final Lilo lusitaniae 11/08/23 21:53 Blood Culture - Preliminary Blood Assessment and Plan Assessment: Impression: Acute hypoxemic and hypercapnic respiratory failure, multifactorial secondary to bilateral pleural effusions with likely associated compressive atelectasis vs infectious process, cannot rule out pneumonia metastatic stage IV lung cancer, underlying COPD based on his previous PFT and previous outpatient workup, mild to moderate. Acute hypotension, following intubation, responded to fluid resuscitation, and he is now off norepinephrine Elevated D-dimer, CT angio protocol, no obvious saddle pulmonary embolism. Moderate pericardial effusion, measuring 1.[address] repeat echocardiogram is, pending Acute kidney injury secondary to hypotension and ATN improving based on labs today. Stage IV non-small cell lung cancer, currently on Braftovi and Mektovi. Chronic anemia History of hypertension History of hyperlipidemia History of obstructive sleep apnea Former tobacco dependence Recommendation: Continue to monitor in the ICU for the next 24 hours although the patient was extubated yesterday and tolerated the extubation well he remains marginal. Continue antibiotics empirically Continue pressors/hemodynamic support Awaiting further cultures which are pending Continue to monitor closely his renal profile as the patient may have developed acute kidney injury Continue GI DVT prophylaxis Advance diet as tolerated Will continue to follow Time with Patient: Less than 30
--- NOTE | 2023-11-11 14:28 | P.PN ---
Subjective Progress Note Date: 11/11/23 78 years old male with past medical history of multiple medical problems including Asthma, Cancer, COPD, GERD/Reflux, Hyperlipidemia, Hypertension, Pneumonia, Prostate Disorder, Rheumatoid Arthritis (RA), Sleep Apnea/CPAP/BIPAP Patient presents because of increased work of breathing and feeling weak. He has history of lung cancer. On admission patient was hypoxic and he was placed on BiPAP and he was s aturating 94% last night however television schedule coordinator he desaturated more and a team was called and he had to be intubatedAnd moved to the ICU. Patient also was hypotensive and he will had to be started on pressors. Patient currently in room 263 is on mechanical ventilation and cannot provide in formation Currently remains on Levophed, he is afebrile, tachycardic and tachypneic Labs showing hemoglobin low 12.5 and 10.7, high creatinine 1.75 and 1.85 baseline 1.2-1.5. Liver enzymes moderately elevated D-dimer is elevated 2.5. proBNP is elevated 5450 Chest x-ray showing left lower lobe infiltrate with small pleural effusion EKG showing sinus tachycardia at [address]-T changes pH was 7.2 but came back to reference range at 7.3 Procalcitonin is elevated 0.69 CTA of the chest showing large pericardial effusion at 1.6 cm with a osteolytic metastatic lesion of T12 and possible pathological fracture at left acromion and moderate left pleural effusion Objective - Vital Signs Vital signs: Vital Signs Temp 97.7 F 11/11/23 08:00 Pulse 91 11/11/23 09:30 Resp 12 11/11/23 09:30 BP 97/53 11/11/23 09:15 Pulse Ox 100 11/11/23 09:30 FiO2 40 11/10/23 12:00 Intake & Output 11/10/23 11/11/23 11/11/23 18:59 06:59 18:59 Intake Total 2173.421 714.517 80 Output Total 2786 965 275 Balance 98.421 -250.483 -195 Weight 94.1 kg Intake: IV 670 590 80 Azithromycin 500 mg In 250 Sodium Chloride 0.9% 250 ml @ 250 mls/hr IVPB DAILY@2200 [facility] Rx#: [id number] Piperacillin-Tazobactam 3 200 100 .375 gm In Sodium Chloride 0.9% 100 ml @ 25 mls/hr IVPB Q8H [facility] Rx#: [id number] Sodium Chloride 0.9% 1, 470 240 80 000 ml @ 10 mls/hr IV . Q24H [facility] Rx#:[id number] Intake, IV Titration 373.421 124.517 Amount Norepinephrine 4 mg In 311.282 124.517 Sodium Chloride 0.9% 250 ml @ 0.03 MCG/KG/MIN 9. 851 mls/hr IV .Q24H [facility] Rx#:[id number] propofoL 1,000 mg In 62.139 Empty Bag 1 bag @ 15 MCG/ KG/MIN 7.757 mls/hr IV . [id number] [facility] Rx#:[id number] Oral 1000 Tube Feeding 100 Other 30 Output: Urine 2075 965 275 Other: Voiding Method Indwelling Catheter Indwelling Catheter Indwelling Catheter ABP, PAP, CO, CI - Last Documented Arterial Blood Pressure 117/51 - Exam -GENERAL: The patient is intubated and sedated HEENT: Pupils are round and equally reacting to light. EOMI. No scleral icterus. No conjunctival pallor. Normocephalic, atraumatic. No pharyngeal erythema. No thyromegaly. CARDIOVASCULAR: S1 and S2 present. No murmurs, rubs, or gallops. PULMONARY: Chest is clear to auscultation, no wheezing , no crackles. ABDOMEN: Soft, nontender, nondistended, normoactive bowel sounds. No palpable organomegaly. MUSCULOSKELETAL: No joint swelling or deformity. EXTREMITIES: No cyanosis, clubbing, or pedal edema. NEUROLOGICAL: Gross neurological examination did not reveal any focal deficits. SKIN: No rashes. no petechiae. - Labs CBC & Chem 7: 11/11/23 05:10 11/11/23 05:10 Labs: Abnormal Lab Results - Last 24 Hours (Table) 11/10/23 11/10/23 11/11/23 Range/Units 11:55 12:27 05:10 RBC 2.93 L (4.30-5.90) m/uL Hgb 9.0 L D (13.0-17.5) gm/dL Hct 28.1 L (39.0-53.0) % RDW 18.8 H (11.5-15.5) % Plt Count 126 L (150-450) k/uL Neutrophils # 8.3 H (1.3-7.7) k/uL Lymphocytes # 0.6 L (1.0-4.8) k/uL ABG O2 Saturation 97.8 H (94-97) % Hemoglobin 10.5 L (13.0-17.5) gm/dL Chloride (98-107) mmol/L BUN (9-20) mg/dL Creatinine (0.66-1.25) mg/dL Glucose (74-99) mg/dL POC Glucose (mg/dL) 148 H (70-110) mg/dL Calcium (8.4-10.2) mg/dL 11/11/23 11/11/23 Range/Units 05:10 06:52 RBC (4.30-5.90) m/uL Hgb (13.0-17.5) gm/dL Hct (39.0-53.0) % RDW (11.5-15.5) % Plt Count (150-450) k/uL Neutrophils # (1.3-7.7) k/uL Lymphocytes # (1.0-4.8) k/uL ABG O2 Saturation (94-97) % Hemoglobin (13.0-17.5) gm/dL Chloride 113 H (98-107) mmol/L BUN 37 H (9-20) mg/dL Creatinine 1.75 H (0.66-1.25) mg/dL Glucose 112 H (74-99) mg/dL POC Glucose (mg/dL) 117 H (70-110) mg/dL Calcium 7.1 L (8.4-10.2) mg/dL Microbiology - Last 24 Hours (Table) 11/08/23 21:53 Blood Culture - Preliminary Blood 11/09/23 01:25 Gram Stain - Preliminary Sputum Sputum Culture - Preliminary Yeast species Assessment and Plan Assessment: Septic shock secondary to healthcare associated pneumonia versus postobstructive pneumonia with endorgan dysfunction including hypoxia and altered mental status Acute hypoxic respiratory failure requiring intubation and mechanical ventilation Metabolic/toxic encephalopathy secondary to above Lung cancers with evidence of metastatic disease to the bone and possible pericardium Pericardial effusion 1.6 cm Osteolytic lesion of the 11 suspicious for metastatic disease Possible pathological fracture of the left acromion Moderate left pleural effusion could be malignant Acute COPD/asthma exacerbation Plan: Continue with antibiotic Zithromax and Zosyn Continue with sedation holiday per pulmonary/critical care team Continue with IV Solu-Medrol 80 mg every 6 hours. And Normal Saline discontinued Continue with pressors as per needed and per pulmonary/critical care team will follow the patient closely Cardiology consult GI prophylaxis Protonix DVT prophylaxis heparin Prognosis is very guarded
--- NOTE | 2023-11-11 15:43 | P.PN ---
Subjective Progress Note Date: 11/11/23 Seen in ICU, pt has been extubated. Sitting up in bedside chair, reports feeling much better. Counts stable. Afebrile, continues on zosyn. SPO2 high 90s on 2L. Objective - Vital Signs Vital signs: Vital Signs Temp 97.5 F L 11/11/23 13:00 Pulse 87 11/11/23 13:00 Resp 10 L 11/11/23 13:00 BP 106/54 11/11/23 13:00 Pulse Ox 97 11/11/23 13:00 FiO2 40 11/10/23 12:00 Intake & Output 11/10/23 11/11/23 11/11/23 18:59 06:59 18:59 Intake Total 2173.421 714.517 140 Output Total 2075 965 490 Balance 98.421 -250.483 -350 Weight 94.1 kg 94.1 kg Intake: IV 670 590 140 Azithromycin 500 mg In 250 Sodium Chloride 0.9% 250 ml @ 250 mls/hr IVPB DAILY@2200 [facility] Rx#: [id number] Piperacillin-Tazobactam 3 200 100 .375 gm In Sodium Chloride 0.9% 100 ml @ 25 mls/hr IVPB Q8H [facility] Rx#: [id number] Sodium Chloride 0.9% 1, 470 240 140 000 ml @ 10 mls/hr IV . Q24H [facility] Rx#:[id number] Intake, IV Titration 373.421 124.517 Amount Norepinephrine 4 mg In 311.282 124.517 Sodium Chloride 0.9% 250 ml @ 0.03 MCG/KG/MIN 9. 851 mls/hr IV .Q24H [facility] Rx#:[id number] propofoL 1,000 mg In 62.139 Empty Bag 1 bag @ 15 MCG/ KG/MIN 7.757 mls/hr IV . [id number] [facility] Rx#:[id number] Oral 1000 Tube Feeding 100 Other 30 Output: Urine 2075 965 490 Other: Voiding Method Indwelling Catheter Indwelling Catheter Indwelling Catheter ABP, PAP, CO, CI - Last Documented Arterial Blood Pressure 53/36 - Constitutional General appearance: Present: no acute distress - EENT Eyes: Present: anicteric sclerae, EOMI ENT: Present: hearing grossly normal - Respiratory Details: breathing is even and unlabored - Cardiovascular Details: skin warm and dry - Integumentary Integumentary: Absent: cyanotic, jaundiced - Musculoskeletal Musculoskeletal: Present: generalized weakness - Psychiatric Psychiatric: Present: A&O x's 3 - Labs CBC & Chem 7: 11/11/23 05:10 11/11/23 05:10 Labs: Abnormal Lab Results - Last 24 Hours (Table) 11/11/23 11/11/23 11/11/23 Range/Units 05:10 05:10 06:52 RBC 2.93 L (4.30-5.90) m/uL Hgb 9.0 L D (13.0-17.5) gm/dL Hct 28.1 L (39.0-53.0) % RDW 18.8 H (11.5-15.5) % Plt Count 126 L (150-450) k/uL Neutrophils # 8.3 H (1.3-7.7) k/uL Lymphocytes # 0.6 L (1.0-4.8) k/uL Chloride 113 H (98-107) mmol/L BUN 37 H (9-20) mg/dL Creatinine 1.75 H (0.66-1.25) mg/dL Glucose 112 H (74-99) mg/dL POC Glucose (mg/dL) 117 H (70-110) mg/dL Calcium 7.1 L (8.4-10.2) mg/dL 11/11/23 Range/Units 11:16 RBC (4.30-5.90) m/uL Hgb (13.0-17.5) gm/dL Hct (39.0-53.0) % RDW (11.5-15.5) % Plt Count (150-450) k/uL Neutrophils # (1.3-7.7) k/uL Lymphocytes # (1.0-4.8) k/uL Chloride (98-107) mmol/L BUN (9-20) mg/dL Creatinine (0.66-1.25) mg/dL Glucose (74-99) mg/dL POC Glucose (mg/dL) 124 H (70-110) mg/dL Calcium (8.4-10.2) mg/dL Microbiology - Last 24 Hours (Table) 11/09/23 01:25 Gram Stain - Final Sputum Sputum Culture - Final Lilo lusitaniae 11/08/23 21:53 Blood Culture - Preliminary Blood Assessment and Plan (1) Respiratory arrest Current Visit: Yes Status: Acute Priority: High Code(s): R09.2 - RES PIRATORY ARREST SNOMED Code(s): 46654223 (2) Lung cancer Current Visit: Yes Status: Acute Priority: High Code(s): C34.90 - MALIGNANT NEOPLASM OF UNSP PART OF UNSP BRONCHUS OR LUNG SNOMED Code(s): 119659228 (3) Pericardial effusion Current Visit: Yes Status: Acute Priority: High Code(s): I31.39 - OTHER PERICARDIAL EFFUSION (NONINFLAMMATORY) SNOMED Code(s): 294761385 Plan: Acute respiratory failure, pericardial effusion: Presented to the emergency room for shortness of breath. Due to respiratory distress patient was transferred to ICU and was intubated -CTA of chest showed large pericardial effusion measuring 1.6 cm negative for PE. No RV strain noted. 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 Moderate left and small right pleural effusions. Compressive atelectasis in the bilateral dependent lung garcia, left greater than right. -Continues Zosyn. Sputum culture positive for lilo -Cardiology has been consulted and echocardiogram ordered. May need pericardial window. If obtained, will request cytology on pericardial fluid -Echo revealed moderate pericardial effussion. Plan to repeat echo in the next cpl days -CXR today showing persistent basilar infiltrates and effusions -Defer management to ICU and cardiology teams NSCLC: -Oncology history and plan as dictated in HPI -He continues Braftovi at 150 mg daily and Mektovi at 30 mg twice daily. He has been taking Braftovi at 150 mg daily since 10/15/2023 -Hold Braftovi/Mektovi while inpt -Despite having to hold treatment multiple times over the last couple months due to repeat hospitalizations, his disease has been overall stable. Don't believe current acute respiratory failure is r/t disease progression. -Repeat staging scans planned for later next month attests: I have seen and examined patient, performed H&P, developed impression and plan of care. Discussed with dictator. Agree with documentation, dictated as a scribe
[2023-11-11 16:50] LABS: Glucose,Whole Blood 123 mg/dL (70-110)
[2023-11-11 19:57] LABS: Glucose,Whole Blood 122 mg/dL (70-110)
[2023-11-11] MEDS: PRAMIPEXOLE 0.5 MG TAB PO SCH (20:52)
[2023-11-12 06:55] LABS: Anisocytosis Slight; Basophils % (A) 0 %; Eosinophils % (A) 0 %; HCT 28.5 % (39.0-53.0); HGB 8.5 gm/dL (13.0-17.5); Hypochromasia Marked; Lymphocytes # (A) 0.4 k/uL (1.0-4.8); Lymphocytes % (A) 7 %; MCH 29.3 pg (25.0-35.0); MCHC 29.8 g/dL (31.0-37.0); MCV 98.4 fL (80.0-100.0); Macrocytosis Slight; Mean Platelet Volume 8.4; Monocytes # (A) 0.4 k/uL (0-1.0); Monocytes % (A) 6 %; Neutrophils # (A) 5.5 k/uL (1.3-7.7); Neutrophils % (A) 85 %; Platelet Count 105 k/uL (150-450); RDW 18.4 % (11.5-15.5); WBC 6.4 k/uL (3.8-10.6)
[2023-11-12 07:05] LABS: Glucose,Whole Blood 129 mg/dL (70-110)
[2023-11-12 07:14] LABS: African American GFR (CKD) 63 (>60 ml/min/1.73 sqM); Anion Gap 5 mmol/L; Blood Urea Nitrogen 28 mg/dL (9-20); Calcium 7.2 mg/dL (8.4-10.2); Carbon Dioxide 22 mmol/L (22-30); Chloride 113 mmol/L (98-107); Glucose 121 mg/dL (74-99); Non-African American GFR(CKD) 55 (>60 ml/min/1.73 sqM); Potassium 4.2 mmol/L (3.5-5.1); Sodium 140 mmol/L (137-145)
--- NOTE | 2023-11-12 11:20 | P.PN ---
Subjective Progress Note Date: 11/12/23 Principal diagnosis: Acute hypoxic and hypercapnic respiratory failure requiring intubation mechanical ventilation This is a 78-year-old male patient with a history of hypertension hyperlipidemia, mild intermittent bronchial asthma, former smoker. 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 Most recently taking Braftovi and Mektovi, and also Zometa infusions. Established Oncologist is Dr. Leigh. He had a follow-up PET scan on September 22, 2023 that revealed minimal response to therapy. Left lower lobe pulmonary nodule not significantly changed from previous. Decreasing FDG activity in the left perihilar activity as well as left pulmonary hilum lymph node. FDG activity within the osseous structures is mixed response and some decrease in FDG while others have increased. New small left pleural effusion. Of note, patient recently treated inpatient for left lower lobe pneumonia in August,. Discharged on 09/27/23 with course of Moxifloxacin. Patient apparently presented back to the ED late last night with a chief complaint of dyspnea. Currently, intubated and unable to provide information for HPI. Family is present at bedside, stating that the patient was not acting himself at home. Reportedly intermittently confused over the last 2 weeks. Also, noted to be more short of breath and usual. Initial chest x-ray showing a persistent left lower lobe infiltrate and/or small left pleural effusion. Patient was admitted with a diagnosis of pneumonia. Late last night, soon after his admission, patient was found unresponsive with agonal breathing pattern. Patient's family was contacted, apparently he is a full code. I recommended that the patient be intubated. DEPUTY SHERIFF GENERALIST/BAILIFF presented at the bedside performed rapid sequence intubation. He was then transferred to the intensive care unit. Initial blood gas consistent with hypercapnic respiratory failure. PaO2 118, pCO2 of 63, pH of 7.21. This is done with initial ventilator settings of assist-control, respiratory rate 18, tidal volume 450, FiO2 of 100%, and PEEP of 5. Respiratory rate was increased to 24. Weaned FiO2 down to 80%. He is currently synchronous mechanical ventilator, sedated on propofol at 25 mcg/kg/min. No significant endotracheal secretions. Peak pressures are low at 18. Follow-up chest x-ray shows endotracheal tube about 2.5 cm from the júnior. Orogastric tube extends with into the stomach. Bilateral pleural effusions, greater on the left. Nonspecific airspace opacities in the mid and lower lung zones bilaterally left greater than right. Compressive atelectasis versus infective infiltrates. Patient is currently empirically covered on antibiotics in the form of azithromycin and Zosyn. He is afebrile. He is hypotensive, currently requiring norepinephrine which is infusing at 0.14 mcg/kg/min. Arterial line was established by DEPUTY SHERIFF GENERALIST/BAILIFF. CBC: WBC count 6, hemoglobin 12.5, hematocrit 40.9, platelets 171. CMP: Sodium 137, potassium 4.7, chloride 106, serum bicarb 25, BUN 27, creatinine 1.75, glucose 94. LFTs mildly elevated. NT proBNP elevated at 5450. Troponin less than 0.012. D-dimer was elevated at 2.[address] angio protocol was initiated. Poor contrast bolus timing, however, no obvious saddle pulmonary embolism identified. Large pericardial effusion measuring 1.6 cm. He has bilateral pleural effusions left greater than right, with associated bilateral compressive atelectasis versus infiltrates. 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 Brain CT was also done while downstairs, no acute intracranial process noted. Patient was evaluated today on 11/10/2023, remains in the ICU remains intubated and mechanically ventilated. Patient is on assist-control rate of 24 tidal volume 450 FiO2 50% and I cut it down to 35%, PEEP of 5. ABG this morning showed a pO2 of 131 pCO2 42 pH of 7.33. Patient is requiring norepinephrine at 0.14 mcg/kg/min he is also on propofol at 30 mg/kg/min IV fluid running at 100 cc/h. Patient remains on antibiotics empirically in the form of Zithromax and Zosyn. Echocardiogram showed small pericardial effusion, however could not assess LV function, cardiology is planning repeat echocardiogram to decide whether the patient may require pericardiocentesis presently no evidence of tamponade. Chest x-ray is showing evidence of pulmonary vascular congestion, suggestive of mild congestive heart failure, there is left pleural effusion, left congestive heart failure does not seem to be overt. Labs today WBC 7.5 hemoglobin is 11. Basic metabolic profile is normal BUN is 37 creatinine 2.03 slightly worse compared to admission creatinine of 1.75. Patient was today on 11/11/2023, remains in the ICU, patient was extubated yesterday, tolerated the extubation well, does not seem to be in any distress, on 4 L nasal cannula, blood pressure is stable, patient remains on Zosyn empirically, remains on diuretics. Follow-up ultrasound of the chest showed sma ll pocket of fluid in the left pleural space, hence I have no plans to perform thoracentesis on this patient his initial echocardiogram showed moderate pericardial effusion, the plan was to repeat his echocardiogram and decide whether the patient will benefit from pericardiocentesis. Clinically the patient is doing well at present, basically asymptomatic, feels much better compared to how he felt when he came in chest x-ray shows bibasilar infiltrates and effusions. Left more so than right WBC count is 9.5 hemoglobin is 9 basic metabolic profile is normal BUN is 37 creatinine 1.75, steadily improving over the last couple days Patient was evaluated today on 11/12/2023, patient remains in the ICU, extubated 2 days ago, tolerated the extubation well,Patient is on 3 L nasal cannula, O2 saturation 97%, patient is comfortable, does not seem to be in any distress.WBC count is 6.4 hemoglobin 8.5 basic metabolic profile is normal renal profile is normal with a BUN of 28 creatinine 1.25. Renal functioning has been steadily improving no chest x-ray done today, but his follow-up chest x-ray yesterday and ultrasound of the chest showed improvement in his pleural effusion. His pericardial effusion is being addressed by cardiology on the case. Of course there is a concern about the possibility of malignant pericardial effusion as well as concern about malignant pleural effusion. But at this point no thoracentesis and no pericardiocentesis are planned. Objective - Vital Signs Vital signs: Vital Signs Temp 97.7 F 11/12/23 08:00 Pulse 65 11/12/23 11:00 Resp 13 11/12/23 11:00 BP 123/63 11/12/23 11:00 Pulse Ox 97 11/12/23 11:00 FiO2 40 11/10/23 12:00 Intake & Output 11/11/23 11/12/23 11/12/23 18:59 06:59 18:59 Intake Total 260 220 40 Output Total 867 695 180 Balance -605 -475 -140 Weight 94.1 kg 93.8 kg Intake: IV 260 220 40 Sodium Chloride 0.9% 1, 260 220 40 000 ml @ 10 mls/hr IV . Q24H [facility] Rx#:[id number] Output: Urine 865 695 180 Other: Voiding Method Indwelling Catheter Indwelling Catheter Indwelling Catheter ABP, PAP, CO, CI - Last Documented Arterial Blood Pressure 53/36 - Exam GENERAL EXAM: Revealed a 78-year-old white male on 3 L nasal cannula, not in distress HEAD: Normocephalic and atraumatic EYES: PERRLA, EOMI, nonicteric. NOSE: Clear with pink turbinates. THROAT: No erythema or exudates. Endotracheal tube and orogastric tube are intact. NECK: No masses, no JVD. CHEST: No chest wall deformity. LUNGS: Minimal crackles at the bases no rhonchi no wheezes CVS: S1 and S2 normal with no audible murmur, regular rhythm. No extra heart sounds ABDOMEN: No hepatosplenomegaly, active bowel sounds, no guarding or rigidity. SKIN: No rashes CENTRAL NERVOUS SYSTEM: Alert and oriented x 3 no gross focal neurologic deficit EXTREMITIES: 1+ bipedal edema, good pulses bilaterally. - Labs CBC & Chem 7: 11/12/23 06:32 11/12/23 06:32 Labs: Abnormal Lab Results - Last 24 Hours (Table) 11/11/23 11/11/23 11/11/23 Range/Units 11:16 16:48 19:56 RBC (4.30-5.90) m/uL Hgb (13.0-17.5) gm/dL Hct (39.0-53.0) % MCHC (31.0-37.0) g/dL RDW (11.5-15.5) % Plt Count (150-450) k/uL Lymphocytes # (1.0-4.8) k/uL Chloride (98-107) mmol/L BUN (9-20) mg/dL Glucose (74-99) mg/dL POC Glucose (mg/dL) 124 H 123 H 122 H (70-110) mg/dL Calcium (8.4-10.2) mg/dL 11/12/23 11/12/23 11/12/23 Range/Units 06:32 06:32 07:04 RBC 2.90 L (4.30-5.90) m/uL Hgb 8.5 L (13.0-17.5) gm/dL Hct 28.5 L (39.0-53.0) % MCHC 29.8 L (31.0-37.0) g/dL RDW 18.4 H (11.5-15.5) % Plt Count 105 L (150-450) k/uL Lymphocytes # 0.4 L (1.0-4.8) k/uL Chloride 113 H (98-107) mmol/L BUN 28 H (9-20) mg/dL Glucose 121 H (74-99) mg/dL POC Glucose (mg/dL) 129 H (70-110) mg/dL Calcium 7.2 L (8.4-10.2) mg/dL Microbiology - Last 24 Hours (Table) 11/08/23 21:53 Blood Culture - Preliminary Blood 11/09/23 01:25 Gram Stain - Final Sputum Sputum Culture - Final Lilo lusitaniae Assessment and Plan Assessment: Impression: Acute hypoxemic and hypercapnic respiratory failure, multifactorial secondary to bilateral pleural effusions with likely associated compressive atelectasis vs infectious process, cannot rule out pneumonia metastatic stage IV lung cancer, underlying COPD based on his previous PFT and previous outpatient workup, mild to moderate. Acute hypotension, following intubation, responded to fluid resuscitation, and he is now off norepinephrine Elevated D-dimer, CT angio protocol, no obvious saddle pulmonary embolism. Moderate pericardial effusion, measuring 1.[address] repeat ech ocardiogram is, pending Acute kidney injury secondary to hypotension and ATN improving based on labs today. Stage IV non-small cell lung cancer, currently on Braftovi and Mektovi. Chronic anemia History of hypertension History of hyperlipidemia History of obstructive sleep apnea Former tobacco dependence Recommendation: Transfer patient to monitored bed and selective today./3 S. Continue antibiotics empirically Cultures have been negative. Including blood cultures Renal functioning is significantly improved will continue to monitor Continue GI DVT prophylaxis Will continue to follow Time with Patient: Less than 30
--- NOTE | 2023-11-12 11:27 | P.PN ---
Subjective Progress Note Date: 11/12/23 This is a 78-year-old gentleman with a past medical history significant for adenocarcinoma of the lung with metastasis to the liver as well as the bone was not responsive to chemotherapy based on the last PET scan as well as multiple comorbid conditions who presented to the emergency department complaining of shortness of breath with to be consulted to see the patient for further evaluation of pericardial effusion. The patient was seen in the ICU and currently is intubated on mechanical ventilation and the history was taken from the chart and nurse taking care of the patient. The patient presented with increasing shortness of breath with no symptoms of chest pain or chest discomfort or dizziness or lightheadedness or presyncope or syncope. He was found to be in acute respiratory distress and he underwent intubation in the emergency department subsequently he was placed on mechanical ventilation and admitted to the intensive care unit. He underwent further investigation including an EKG and that showed sinus mechanism and subsequently chest x-ray showed cardiomegaly. Subsequently CT scan of the chest was performed and showed large pericardial effusion with moderate pleural effusion. The patient currently is hemodynamically unstable and requiring small dose of norepinephrine. We are going to obtain an echocardiogram as soon as possible and if he does have any evidence of tamponade physiology the patient need to undergo pericardial window and not pericardiocentesis just because of the nature of the pericardial effusion which is malignant and likely to be recurrent. The physical examination is remarkable for regular rate and rhythm with a distant heart sounds and a soft systolic murmur at the right upper sternal border with diminished breathing sounds bilaterally and no edema was noted in the lower extremities November 10, 2023 The patient was seen and evaluated this morning. He still intubated on mechanical ventilation and hemodynamically still unstable requiring small dose of norepinephrine but the echo showed moderate pericardial effusion and no tamponade physiology was noted on the echocardiogram from yesterday. The physical examination is remarkable for regular rate and rhythm with a systolic murmur at the right upper sternal border and clear breathing sounds bilaterally and no edema was noted November 11, 2023 The patient was seen and evaluated this morning. He is off norepinephrine at this point. I am going to obtain an echo to assess for any change in the size of the pericardial effusion but he is maintaining normal sinus mechanism. No symptoms of chest pain or chest discomfort. And the patient is extubated as well. The physical examination is remarkable for regular rhythm with a soft systolic murmur and clear breathing sounds bilaterally and no edema was noted in the lower extremities November 12, 2023 The patient was seen and evaluated this morning. He is doing better. He is not on any vasopressors anymore. He is hemodynamically stable. The echo/repeated echo still pending. Examination is remarkable for regular rhythm with a soft systolic murmur and diminished breathing sounds bilaterally and no edema was noted in the lower extremities Assessment Acute hypoxic respiratory failure Moderate circumferential pericardial effusion with no tamponade physiology Bilateral pleural effusion Adenocarcinoma of the lung with metastasis to liver and bone Multiple comorbid conditions Acute renal failure Plan Continue the current medical regimen Follow-up on the repeated echo Objective - Vital Signs Vital signs: Vital Signs Temp 97.7 F 11/12/23 08:00 Pulse 65 11/12/23 11:00 Resp 11/12/23 11:00 BP 123/63 11/12/23 11:00 Pulse Ox 97 11/12/23 11:00 FiO2 40 11/10/23 12:00 Intake & Output 11/11/23 11/12/23 11/12/23 18:59 06:59 18:59 Intake Total 260 220 40 Output Total 865 695 180 Balance -605 -475 -140 Weight 94.1 kg 93.8 kg Intake: IV 260 220 40 Sodium Chloride 0.9% 1, 260 220 40 000 ml @ 10 mls/hr IV . Q24H [facility] Rx#:[id number] Output: Urine 865 695 180 Other: Voiding Method Indwelling Catheter Indwelling Catheter Indwelling Catheter ABP, PAP, CO, CI - Last Documented Arterial Blood Pressure 53/36 - Labs CBC & Chem 7: 11/12/23 06:32 11/12/23 06:32 Labs: Abnormal Lab Results - Last 24 Hours (Table) 11/11/23 11/11/23 11/12/23 Range/Units 16:48 19:56 06:32 RBC 2.90 L (4.30-5.90) m/uL Hgb 8.5 L (13.0-17.5) gm/dL Hct 28.5 L (39.0-53.0) % MCHC 29.8 L (31.0-37.0) g/dL RDW 18.4 H (11.5-15.5) % Plt Count 105 L (150-450) k/uL Lymphocytes # 0.4 L (1.0-4.8) k/uL Chloride (98-107) mmol/L BUN (9-20) mg/dL Glucose (74-99) mg/dL POC Glucose (mg/dL) 123 H 122 H (70-110) mg/dL Calcium (8.4-10.2) mg/dL 11/12/23 11/12/23 Range/Units 06:32 07:04 RBC (4.30-5.90) m/uL Hgb (13.0-17.5) gm/dL Hct (39.0-53.0) % MCHC (31.0-37.0) g/dL RDW (11.5-15.5) % Plt Count (150-450) k/uL Lymphocytes # (1.0-4.8) k/uL Chloride 113 H (98-107) mmol/L BUN 28 H (9-20) mg/dL Glucose 121 H (74-99) mg/dL POC Glucose (mg/dL) 129 H (70-110) mg/dL Calcium 7.2 L (8.4-10.2) mg/dL Microbiology - Last 24 Hours (Table) 11/08/23 21:53 Blood Culture - Preliminary Blood 11/09/23 01:25 Gram Stain - Final Sputum Sputum Culture - Final Lilo lusitaniae
[2023-11-12 12:10] LABS: Glucose,Whole Blood 107 mg/dL (70-110)
--- NOTE | 2023-11-12 12:42 | P.PN ---
Subjective Progress Note Date: 11/12/23 78 years old male with past medical history of multiple medical problems including Asthma, Cancer, COPD, GERD/Reflux, Hyperlipidemia, Hypertension, Pneumonia, Prostate Disorder, Rheumatoid Arthritis (RA), Sleep Apnea/CPAP/BIPAP Patient presents because of increased work of breathing and feeling weak. He has history of lung cancer. On admission patient was hypoxic and he was placed on BiPAP and he was s aturating 94% last night however foot doctor he desaturated more and a team was called and he had to be intubatedAnd moved to the ICU. Patient also was hypotensive and he will had to be started on pressors. Patient currently in room 263 is on mechanical ventilation and cannot provide in formation Currently remains on Levophed, he is afebrile, tachycardic and tachypneic Labs showing hemoglobin low 12.5 and 10.7, high creatinine 1.75 and 1.85 baseline 1.2-1.5. Liver enzymes moderately elevated D-dimer is elevated 2.5. proBNP is elevated 5450 Chest x-ray showing left lower lobe infiltrate with small pleural effusion EKG showing sinus tachycardia at [address]-T changes pH was 7.2 but came back to reference range at 7.3 Procalcitonin is elevated 0.69 CTA of the chest showing large pericardial effusion at 1.6 cm with a osteolytic metastatic lesion of T12 and possible pathological fracture at left acromion and moderate left pleural effusion 11/12/2023 --patient is seen and evaluated sitting up in bedside chair; remains in the ICU, currently on 3 L nasal cannula, O2 saturation 97%, patient is comfortable Blood work reveals WBC count is 6.4 hemoglobin 8.5 basic metabolic profile is normal renal profile is normal with a BUN of 28 creatinine 1.25. -- follow-up chest x-ray yesterday and ultrasound of the chest showed impr ovement in his pleural effusion. -Cardiology on board for pericardial effusion. - no thoracentesis and no pericardiocentesis are planned. Patient stable to be transferred to selective care unit; remains on IV Zosyn; patient has been pancultured and has been negative so far Objective - Vital Signs Vital signs: Vital Signs Temp 97.7 F 11/12/23 08:00 Pulse 70 11/12/23 09:00 Resp 11 L 11/12/23 09:00 BP 133/65 11/12/23 09:00 Pulse Ox 97 11/12/23 09:00 FiO2 40 11/10/23 12:00 Intake & Output 11/11/23 11/12/23 11/12/23 18:59 06:59 18:59 Intake Total 260 220 40 Output Total 865 695 180 Balance -605 -475 -140 Weight 94.1 kg 93.8 kg Intake: IV 260 220 40 Sodium Chloride 0.9% 1, 260 220 40 000 ml @ 10 mls/hr IV . [facility]H [facility] Rx#:[id number] Output: Urine 865 695 180 Other: Voiding Method Indwelling Catheter Indwelling Catheter ABP, PAP, CO, CI - Last Documented Arterial Blood Pressure 53/36 - Exam -GENERAL: The patient is intubated and sedated HEENT: Pupils are round and equally reacting to light. EOMI. No scleral icterus. No conjunctival pallor. Normocephalic, atraumatic. No pharyngeal erythema. No thyromegaly. CARDIOVASCULAR: S1 and S2 present. No murmurs, rubs, or gallops. PULMONARY: Chest is clear to auscultation, no wheezing , no crackles. ABDOMEN: Soft, nontender, nondistended, normoactive bowel sounds. No palpable organomegaly. MUSCULOSKELETAL: No joint swelling or deformity. EXTREMITIES: No cyanosis, clubbing, or pedal edema. NEUROLOGICAL: Gross neurological examination did not reveal any focal deficits. SKIN: No rashes. no petechiae. - Labs CBC & Chem 7: 11/12/23 06:32 11/12/23 06:32 Labs: Abnormal Lab Results - Last 24 Hours (Table) 11/11/23 11/11/23 11/11/23 Range/Units 11:16 16:48 19:56 RBC (4.30-5.90) m/uL Hgb (13.0-17.5) gm/dL Hct (39.0-53.0) % MCHC (31.0-37.0) g/dL RDW (11.5-15.5) % Plt Count (150-450) k/uL Lymphocytes # (1.0-4.8) k/uL Chloride (98-107) mmol/L BUN (9-20) mg/dL Glucose (74-99) mg/dL POC Glucose (mg/dL) 124 H 123 H 122 H (70-110) mg/dL Calcium (8.4-10.2) mg/dL 11/12/23 11/12/23 11/12/23 Range/Units 06:32 06:32 07:04 RBC 2.90 L (4.30-5.90) m/uL Hgb 8.5 L (13.0-17.5) gm/dL Hct 28.5 L (39.0-53.0) % MCHC 29.8 L (31.0-37.0) g/dL RDW 18.4 H (11.5-15.5) % Plt Count 105 L (150-450) k/uL Lymphocytes # 0.4 L (1.0-4.8) k/uL Chloride 113 H (98-107) mmol/L BUN 28 H (9-20) mg/dL Glucose 121 H (74-99) mg/dL POC Glucose (mg/dL) 129 H (70-110) mg/dL Calcium 7.2 L (8.4-10.2) mg/dL Microbiology - Last 24 Hours (Table) 11/08/23 21:53 Blood Culture - Preliminary Blood 11/09/23 01:25 Gram Stain - Final Sputum Sputum Culture - Final Lilo lusitaniae Assessment and Plan Assessment: Septic shock secondary to healthcare associated pneumonia versus postobstructive pneumonia with endorgan dysfunction including hypoxia and altered mental status Acute hypoxic respiratory failure requiring intubation and mechanical ventilation Metabolic/toxic encephalopathy secondary to above Lung cancers with evidence of metastatic disease to the bone and possible pericardium Pericardial effusion 1.6 cm Osteolytic lesion of the 11 suspicious for metastatic disease Possible pathological fracture of the left acromion Moderate left pleural effusion could be malignant Acute COPD/asthma exacerbation Plan: Continue with antibiotic Zithromax and Zosyn Continue with sedation holiday per pulmonary/critical care team Continue with IV Solu-Medrol 80 mg every 6 hours. And Normal Saline discontinued Continue with pressors as per needed and per pulmonary/critical care team will follow the patient closely Cardiology consult GI prophylaxis Protonix DVT prophylaxis heparin Prognosis is very guarded
--- NOTE | 2023-11-12 16:14 | CA ---
Transthoracic Echo Report Name: Jett Babcock Age: 78 Gender: M : 1945 Exam Date: 11/11/2023 15:00 Exam Location: [facility] Ht (in): 69 Wt (lb): 207 Ordering Physician: Lucie Little MD Attending/Referring Phys: Building Admin Darling Ramsay RDCS Procedure CPT: Indications: LV function and pericardial effusion Cardiac Hx: Technical Quality: Fair Contrast 1: Total Dose (mL): Contrast 2: Total Dose (mL): MEASUREMENTS (Male / Female) Normal Values 2D ECHO LV Diastolic Diameter PLAX 5.0 cm 4.2 - 5.9 / 3.9 - 5.3 cm LV Systolic Diameter PLAX 3.5 cm IVS Diastolic Thickness 1.0 cm 0.6 - 1.0 / 0.6 - 0.9 cm LVPW Diastolic Thickness 1.4 cm 0.6 - 1.0 / 0.6 - 0.9 cm LV Relative Wall Thickness 0.5 LV Diastolic Volume MOD BP 152.4 cm??? 67 - 155 / 56 - 104 cm??? LV Systolic Volume MOD BP 66.0 cm??? 22 - 58 / 19 - 49 cm??? LV Ejection Fraction MOD BP 56.7 % >= 55 % LV Cardiac Index MOD BP 2673.7 cm???/min???m??? LV Diastolic Volume MOD 4C 159.2 cm??? LV Systolic Volume MOD 4C 67.2 cm??? LV Ejection Fraction MOD 4C 57.8 % LV Cardiac Index MOD 4C 2849.6 cm???/min???m??? LV Diastolic Length 4C 8.7 cm LV Systolic Length 4C 7.5 cm LV Diastolic Volume MOD 2C 145.6 cm??? LV Systolic Volume MOD 2C 61.4 cm??? LV Ejection Fraction MOD 2C 57.8 % LV Cardiac Index MOD 2C 2605.4 cm???/min???m??? LV Diastolic Length 2C 8.7 cm LV Systolic Length 2C 7.9 cm FINDINGS Left Ventricle Left ventricular ejection fraction is estimated at 55-60 %. Mildly increased left ventricular systolic volume. Left ventricular wall thickness normal. No obvious regional wall motion abnormalities. Right Ventricle Normal right ventricular size. Right Atrium Right atrium not assessed. Left Atrium Left atrium not assessed. Mitral Valve Structurally normal mitral valve. Aortic Valve Aortic valve not well visualized. Tricuspid Valve Structurally normal tricuspid valve. Pulmonic Valve Pulmonic valve not well visualized. Pericardium Small pericardial effusion. Aorta Aortic root and proximal ascending aorta not well visualized. CONCLUSIONS Normal LV systolic function Small pericardial effusion Previewed by: Dr. Gene Riggs MD (Electronically Signed) Final Date: 12 November 2023 16:13
[2023-11-12 19:42] LABS: Glucose,Whole Blood 138 mg/dL (70-110)
[2023-11-12] MEDS: TEMAZEPAM 7.5 MG CAP PO PRN (21:13)
[2023-11-13 06:25] LABS: Anisocytosis Slight; Basophils % (A) 0 %; Eosinophils % (A) 0 %; HCT 28.8 % (39.0-53.0); HGB 8.8 gm/dL (13.0-17.5); Hypochromasia Marked; Lymphocytes # (A) 0.4 k/uL (1.0-4.8); Lymphocytes % (A) 7 %; MCH 30.2 pg (25.0-35.0); MCHC 30.7 g/dL (31.0-37.0); MCV 98.6 fL (80.0-100.0); Macrocytosis Slight; Mean Platelet Volume 8.8; Monocytes # (A) 0.3 k/uL (0-1.0); Monocytes % (A) 6 %; Neutrophils # (A) 4.4 k/uL (1.3-7.7); Neutrophils % (A) 85 %; Platelet Count 110 k/uL (150-450); RBC 2.92 m/uL (4.30-5.90); RDW 18.4 % (11.5-15.5); WBC 5.2 k/uL (3.8-10.6)
[2023-11-13 06:31] LABS: Glucose,Whole Blood 143 mg/dL (70-110)
[2023-11-13 06:42] LABS: African American GFR (CKD) 73 (>60 ml/min/1.73 sqM); Anion Gap 0 mmol/L; Blood Urea Nitrogen 21 mg/dL (9-20); Calcium 7.3 mg/dL (8.4-10.2); Carbon Dioxide 27 mmol/L (22-30); Chloride 113 mmol/L (98-107); Glucose 118 mg/dL (74-99); Non-African American GFR(CKD) 63 (>60 ml/min/1.73 sqM); Potassium 4.3 mmol/L (3.5-5.1); Sodium 140 mmol/L (137-145)
--- NOTE | 2023-11-13 10:51 | P.PN ---
Subjective Progress Note Date: 11/13/23 This is a 78-year-old gentleman with a past medical history significant for adenocarcinoma of the lung with metastasis to the liver as well as the bone was not responsive to chemotherapy based on the last PET scan as well as multiple comorbid conditions who presented to the emergency department complaining of shortness of breath with to be consulted to see the patient for further evaluation of pericardial effusion. The patient was seen in the ICU and currently is intubated on mechanical ventilation and the history was taken from the chart and nurse taking care of the patient. The patient presented with increasing shortness of breath with no symptoms of chest pain or chest discomfort or dizziness or lightheadedness or presyncope or syncope. He was found to be in acute respiratory distress and he underwent intubation in the emergency department subsequently he was placed on mechanical ventilation and admitted to the intensive care unit. He underwent further investigation including an EKG and that showed sinus mechanism and subsequently chest x-ray showed cardiomegaly. Subsequently CT scan of the chest was performed and showed large pericardial effusion with moderate pleural effusion. The patient currently is hemodynamically unstable and requiring small dose of norepinephrine. We are going to obtain an echocardiogram as soon as possible and if he does have any evidence of tamponade physiology the patient need to undergo pericardial window and not pericardiocentesis just because of the nature of the pericardial effusion which is malignant and likely to be recurrent. The physical examination is remarkable for regular rate and rhythm with a distant heart sounds and a soft systolic murmur at the right upper sternal border with diminished breathing sounds bilaterally and no edema was noted in the lower extremities November 10, 2023 The patient was seen and evaluated this morning. He still intubated on mechanical ventilation and hemodynamically still unstable requiring small dose of norepinephrine but the echo showed moderate pericardial effusion and no tamponade physiology was noted on the echocardiogram from yesterday. The physical examination is remarkable for regular rate and rhythm with a systolic murmur at the right upper sternal border and clear breathing sounds bilaterally and no edema was noted November 11, 2023 The patient was seen and evaluated this morning. He is off norepinephrine at this point. I am going to obtain an echo to assess for any change in the size of the pericardial effusion but he is maintaining normal sinus mechanism. No symptoms of chest pain or chest discomfort. And the patient is extubated as well. The physical examination is remarkable for regular rhythm with a soft systolic murmur and clear breathing sounds bilaterally and no edema was noted in the lower extremities November 12, 2023 The patient was seen and evaluated this morning. He is doing better. He is not on any vasopressors anymore. He is hemodynamically stable. The echo/repeated echo still pending. Examination is remarkable for regular rhythm with a soft systolic murmur and diminished breathing sounds bilaterally and no edema was noted in the lower extremities November 13, 2023 The patient was seen and evaluated this morning. He is asymptomatic and hemodynamically stable with the repeated echo showed improvement in the pericardial effusion and now is a small with no evidence of any tamponade physiology. The physical examination is remarkable for regular rhythm with a soft systolic murmur and clear breathing sounds bilaterally and no edema was noted in the lower extremities Assessment Acute hypoxic respiratory failure Moderate circumferential pericardial effusion with no tamponade physiology Bilateral pleural effusion Adenocarcinoma of the lung with metastasis to liver and bone Multiple comorbid conditions Acute renal failure Plan Continue the current medical regimen Repeated echo showed improvement in the pericardial effusion Objective - Vital Signs Vital signs: Vital Signs Temp 97.7 F 11/13/23 10:23 Pulse 72 11/13/23 10:23 Resp 14 11/13/23 10:23 BP 134/73 11/13/23 10:23 Pulse Ox 100 11/13/23 10:23 FiO2 40 11/10/23 12:00 Intake & Output 11/12/23 11/13/23 11/13/23 18:59 06:59 18:59 Intake Total 140 410 Output Total 480 900 Balance -340 -490 Weight 97.7 kg Intake: IV 140 410 Piperacillin-Tazobactam 3 100 200 .375 gm In Sodium Chloride 0.9% 100 ml @ 25 mls/hr IVPB Q8H [facility] Rx#: [id number] Sodium Chloride 0.9% 1, 40 210 000 ml @ 10 mls/hr IV . Q24H [facility] Rx#:[id number] Output: Urine 480 900 Other: Voiding Method Indwelling Catheter Indwelling Catheter ABP, PAP, CO, CI - Last Documented Arterial Blood Pressure 53/36 - Labs CBC & Chem 7: 11/13/23 05:53 11/13/23 05:53 Labs: Abnormal Lab Results - Last 24 Hours (Table) 11/12/23 11/13/23 11/13/23 Range/Units 19:41 05:53 05:53 RBC 2.92 L (4.30-5.90) m/uL Hgb 8.8 L (13.0-17.5) gm/dL Hct 28.8 L (39.0-53.0) % MCHC 30.7 L (31.0-37.0) g/dL RDW 18.4 H (11.5-15.5) % Plt Count 110 L (150-450) k/uL Lymphocytes # 0.4 L (1.0-4.8) k/uL Chloride 113 H (98-107) mmol/L BUN 21 H (9-20) mg/dL Glucose 118 H (74-99) mg/dL POC Glucose (mg/dL) 138 H (70-110) mg/dL Calcium 7.3 L (8.4-10.2) mg/dL 11/13/23 Range/Units 06:30 RBC (4.30-5.90) m/uL Hgb (13.0-17.5) gm/dL Hct (39.0-53.0) % MCHC (31.0-37.0) g/dL RDW (11.5-15.5) % Plt Count (150-450) k/uL Lymphocytes # (1.0-4.8) k/uL Chloride (98-107) mmol/L BUN (9-20) mg/dL Glucose (74-99) mg/dL POC Glucose (mg/dL) 143 H (70-110) mg/dL Calcium (8.4-10.2) mg/dL
--- NOTE | 2023-11-13 12:03 | P.PN ---
Subjective Progress Note Date: 11/13/23 Principal diagnosis: Acute hypoxic and hypercapnic respiratory failure This is a 78-year-old male patient with a history of hypertension hyperlipidemia, mild intermittent bronchial asthma, former smoker. 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 Most recently taking Braftovi and Mektovi, and also Zometa infusions. Established Oncologist is Dr. Leigh. He had a follow-up PET scan on September 22, 2023 that revealed minimal response to therapy. Left lower lobe pulmonary nodule not significantly changed from previous. Decreasing FDG activity in the left perihilar activity as well as left pulmonary hilum lymph node. FDG activity within the osseous structures is mixed response and some decrease in FDG while others have increased. New small left pleural effusion. Of note, patient recently treated inpatient for left lower lobe pneumonia in August,. Discharged on 09/27/23 with course of Moxifloxacin. Patient apparently presented back to the ED late last night with a chief complaint of dyspnea. Currently, intubated and unable to provide information for HPI. Family is present at bedside, stating that the patient was not acting himself at home. Reportedly intermittently confused over the last 2 weeks. Also, noted to be more short of breath and usual. Initial chest x-ray showing a persistent left lower lobe infiltrate and/or small left pleural effusion. Patient was admitted with a diagnosis of pneumonia. Late last night, soon after his admission, patient was found unresponsive with agonal breathing pattern. Patient's family was contacted, apparently he is a full code. I recommended that the patient be intubated. REED MAN presented at the bedside performed rapid sequence intubation. He was then transferred to the intensive care unit. Initial blood gas consistent with hypercapnic respiratory failure. PaO2 118, pCO2 of 63, pH of 7.21. This is done with initial ventilator settings of assist-control, respiratory rate 18, tidal volume 450, FiO2 of 100%, and PEEP of 5. Respiratory rate was increased to 24. Weaned FiO2 down to 80%. He is currently synchronous mechanical ventilator, sedated on propofol at 25 mcg/kg/min. No significant endotracheal secretions. Peak pressures are low at 18. Follow-up chest x-ray shows endotracheal tube about 2.5 cm from the júnior. Orogastric tube extends with into the stomach. Bilateral pleural effusions, greater on the left. Nonspecific airspace opacities in the mid and lower lung zones bilaterally left greater than right. Compressive atelectasis versus infective infiltrates. Patient is currently empirically covered on antibiotics in the form of azithromycin and Zosyn. He is afebrile. He is hypotensive, currently requiring norepinephrine which is infusing at 0.14 mcg/kg/min. Arterial line was established by REED MAN. CBC: WBC count 6, hemoglobin 12.5, hematocrit 40.9, platelets 171. CMP: Sodium 137, potassium 4.7, chloride 106, serum bicarb 25, BUN 27, creatinine 1.75, glucose 94. LFTs mildly elevated. NT proBNP elevated at 5450. Troponin less than 0.012. D-dimer was elevated at 2.[address] angio protocol was initiated. Poor contrast bolus timing, however, no obvious saddle pulmonary embolism identified. Large pericardial effusion measuring 1.6 cm. He has bilateral pleural effusions left greater than right, with associated bilateral compressive atelectasis versus infiltrates. 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 Brain CT was also done while downstairs, no acute intracranial process noted. Patient was evaluated today on 11/10/2023, remains in the ICU remains intubated and mechanically ventilated. Patient is on assist-control rate of 24 tidal volume 450 FiO2 50% and I cut it down to 35%, PEEP of 5. ABG this morning showed a pO2 of 131 pCO2 42 pH of 7.33. Patient is requiring norepinephrine at 0.14 mcg/kg/min he is also on propofol at 30 mg/kg/min IV fluid running at 100 cc/h. Patient remains on antibiotics empirically in the form of Zithromax and Zosyn. Echocardiogram showed small pericardial effusion, however could not assess LV function, cardiology is planning repeat echocardiogram to decide whether the patient may require pericardiocentesis presently no evidence of tamponade. Chest x-ray is showing evidence of pulmonary vascular congestion, suggestive of mild congestive heart failure, there is left pleural effusion, left congestive heart failure does not seem to be overt. Labs today WBC 7.5 hemoglobin is 11. Basic metabolic profile is normal BUN is 37 creatinine 2.03 slightly worse compared to admission creatinine of 1.75. Patient was today on 11/11/2023, remains in the ICU, patient was extubated yesterday, tolerated the extubation well, does not seem to be in any distress, on 4 L nasal cannula, blood pressure is stable, patient remains on Zosyn empirically, remains on diuretics. Follow-up ultrasound of the chest showed small pocket of fluid in the left pleural space, hence I have no plans to perform thoracentesis on this patient his initial echocardiogram showed moderate pericardial effusion, the plan was to repeat his echocardiogram and decide whether the patient will benefit from pericardiocentesis. Clinically the patient is doing well at present, basically asymptomatic, feels much better compared to how he felt when he came in chest x-ray shows bibasilar infiltrates and effusions. Left more so than right WBC count is 9.5 hemoglobin is 9 basic metabolic profile is normal BUN is 37 creatinine 1.75, steadily improving over the last couple days Patient was evaluated today on 11/12/2023, patient remains in the ICU, extubated 2 days ago, tolerated the extubation well,Patient is on 3 L nasal cannula, O2 saturation 97%, patient is comfortable, does not seem to be in any distress.WBC count is 6.4 hemoglobin 8.5 basic metabolic profile is normal renal profile is normal with a BUN of 28 creatinine 1.25. Renal functioning has been steadily improving no chest x-ray done today, but his follow-up chest x-ray yesterday and ultrasound of the chest showed improvement in his pleural effusion. His pericardial effusion is being addressed by cardiology on the case. Of course there is a concern about the possibility of malignant pericardial effusion as w ell as concern about malignant pleural effusion. But at this point no thoracentesis and no pericardiocentesis are planned. Patient was eval today on 11/13/2023, doing well, remains in the ICU as an o verflow, he is on 3 L nasal cannula not in any distress. No cough no wheezing no shortness of breath. Remains on antibiotics. WBC count is 5.2 hemoglobin 8.8 electrolytes are normal renal profile showed a BUN of 21 creatinine 1.11, steadily improving compared to creatinine of 1.75 on admission Objective - Vital Signs Vital signs: Vital Signs Temp 97.7 F 11/13/23 10:23 Pulse 90 11/13/23 11:55 Resp 14 11/13/23 10:23 BP 134/73 11/13/23 10:23 Pulse Ox 100 11/13/23 10:23 FiO2 40 11/10/23 12:00 Intake & Output 11/12/23 11/13/23 11/13/23 18:59 06:59 18:59 Intake Total 140 410 Output Total 480 900 Balance -340 -490 Weight 97.7 kg Intake: IV 140 410 Piperacillin-Tazobactam 3 100 200 .375 gm In Sodium Chloride 0.9% 100 ml @ 25 mls/hr IVPB Q8H [facility] Rx#: [id number] Sodium Chloride 0.9% 1, 40 210 000 ml @ 10 mls/hr IV . Q24H [facility] Rx#:[id number] Output: Urine 480 900 Other: Voiding Method Indwelling Catheter Indwelling Catheter Indwelling Catheter ABP, PAP, CO, CI - Last Documented Arterial Blood Pressure 53/36 - Exam GENERAL EXAM: Revealed a 78-year-old white male on 3 L nasal cannula, not in distress, O2 saturation is 100% HEAD: Normocephalic and atraumatic EYES: PERRLA, EOMI, nonicteric. NOSE: Clear with pink turbinates. THROAT: No erythema or exudates. Endotracheal tube and orogastric tube are intact. NECK: No masses, no JVD. CHEST: No chest wall deformity. LUNGS: Clear bilaterally no crackles rhonchi or wheezes CVS: S1 and S2 normal with no audible murmur, regular rhythm. No extra heart sounds ABDOMEN: No hepatosplenomegaly, active bowel sounds, no guarding or rigidity. SKIN: No rashes CENTRAL NERVOUS SYSTEM: Alert and oriented x 3 no gross focal neurologic deficit EXTREMITIES: 1+ bipedal edema, good pulses bilaterally. - Labs CBC & Chem 7: 11/13/23 05:53 11/13/23 05:53 Labs: Abnormal Lab Results - Last 24 Hours (Table) 11/12/23 11/13/23 11/13/23 Range/Units 19:41 05:53 05:53 RBC 2.92 L (4.30-5.90) m/uL Hgb 8.8 L (13.0-17.5) gm/dL Hct 28.8 L (39.0-53.0) % MCHC 30.7 L (31.0-37.0) g/dL RDW 18.4 H (11.5-15.5) % Plt Count 110 L (150-450) k/uL Lymphocytes # 0.4 L (1.0-4.8) k/uL Chloride 113 H (98-107) mmol/L BUN 21 H (9-20) mg/dL Glucose 118 H (74-99) mg/dL POC Glucose (mg/dL) 138 H (70-110) mg/dL Calcium 7.3 L (8.4-10.2) mg/dL 11/13/23 Range/Units 06:30 RBC (4.30-5.90) m/uL Hgb (13.0-17.5) gm/dL Hct (39.0-53.0) % MCHC (31.0-37.0) g/dL RDW (11.5-15.5) % Plt Count (150-450) k/uL Lymphocytes # (1.0-4.8) k/uL Chloride (98-107) mmol/L BUN (9-20) mg/dL Glucose (74-99) mg/dL POC Glucose (mg/dL) 143 H (70-110) mg/dL Calcium (8.4-10.2) mg/dL Assessment and Plan Assessment: Impression: Acute hypoxemic and hypercapnic respiratory failure, multifactorial secondary to bilateral pleural effusions with likely associated compressive atelectasis vs infectious process, cannot rule out pneumonia metastatic stage IV lung cancer, underlying COPD based on his previous PFT and previous outpatient workup, mild to moderate. Patient required intubation mechanical ventilation on his initial presentation extubated few days ago, he is presently an overflow in the ICU. Acute hypotension, following intubation, responded to fluid resuscitation Elevated D-dimer, CT angio protocol, no obvious saddle pulmonary embolism. Moderate pericardial effusion, measuring 1.[address] repeat echocardiogram is, pending Acute kidney injury secondary to hypotension and ATN improving based on labs today. Stage IV non-small cell lung cancer, currently on Braftovi and Mektovi. Chronic anemia History of hypertension History of hyperlipidemia History of obstructive sleep apnea Former tobacco dependence Recommendation: Transfer to cardiac floor once a bed is available Continue antibiotics empirically Cultures have been negative. Including blood cultures Renal functioning is significantly improved May need repeat echocardiogram to follow-up on his pericardial effusion early next week, patient being followed by cardiology Continue GI DVT prophylaxis Will continue to follow Time with Patient: Less than 30
--- NOTE | 2023-11-13 12:29 | P.PN ---
Subjective Progress Note Date: 11/13/23 78 years old male with past medical history of multiple medical problems including Asthma, Cancer, COPD, GERD/Reflux, Hyperlipidemia, Hypertension, Pneumonia, Prostate Disorder, Rheumatoid Arthritis (RA), Sleep Apnea/CPAP/BIPAP Patient presents because of increased work of breathing and feeling weak. He has history of lung cancer. On admission patient was hypoxic and he was placed on BiPAP and he was s aturating 94% last night however route service representative he desaturated more and a team was called and he had to be intubatedAnd moved to the ICU. Patient also was hypotensive and he will had to be started on pressors. Patient currently in room 263 is on mechanical ventilation and cannot provide in formation Currently remains on Levophed, he is afebrile, tachycardic and tachypneic Labs showing hemoglobin low 12.5 and 10.7, high creatinine 1.75 and 1.85 baseline 1.2-1.5. Liver enzymes moderately elevated D-dimer is elevated 2.5. proBNP is elevated 5450 Chest x-ray showing left lower lobe infiltrate with small pleural effusion EKG showing sinus tachycardia at [address]-T changes pH was 7.2 but came back to reference range at 7.3 Procalcitonin is elevated 0.69 CTA of the chest showing large pericardial effusion at 1.6 cm with a osteolytic metastatic lesion of T12 and possible pathological fracture at left acromion and moderate left pleural effusion 11/12/2023 --patient is seen and evaluated sitting up in bedside chair; remains in the ICU, currently on 3 L nasal cannula, O2 saturation 97%, patient is comfortable Blood work reveals WBC count is 6.4 hemoglobin 8.5 basic metabolic profile is normal renal profile is normal with a BUN of 28 creatinine 1.25. -- follow-up chest x-ray yesterday and ultrasound of the chest showed impr ovement in his pleural effusion. -Cardiology on board for pericardial effusion. - no thoracentesis and no pericardiocentesis are planned. Patient stable to be transferred to selective care unit; remains on IV Zosyn; patient has been pancultured and has been negative so far 11/13/2023 Patient is seen and eval in room with nursing staff at bedside; reports he is doing well, currently on O2 on 3 L nasal cannula not in any distress. No cough no wheezing no shortness of breath. Remains on antibiotics in form of IV Zosyn. -Lab review shows WBC count is 5.2 hemoglobin 8.8 electrolytes are normal renal profile showed a BUN of 21 creatinine 1.11, steadily improving compared to creatinine of 1.75 on admission Pulmonary service on board and recommending to continue with IV antibiotics empirically; patient has been pancultured and cultures have been negative so far Cardiology following for pericardial effusion; plan for repeat echocardiogram early next week with further recommendations -- Patient to be transferred out to selective care unit Objective - Vital Signs Vital signs: Vital Signs Temp 97.7 F 11/13/23 04:00 Pulse 72 11/13/23 08:43 Resp 12 11/13/23 04:00 BP 119/66 11/13/23 04:00 Pulse Ox 99 11/13/23 04:00 FiO2 40 11/10/23 12:00 Intake & Output 11/12/23 11/13/23 11/13/23 18:59 06:59 18:59 Intake Total 140 410 Output Total 480 900 Balance -340 -490 Weight 97.7 kg Intake: IV 140 410 Piperacillin-Tazobactam 3 100 200 .375 gm In Sodium Chloride 0.9% 100 ml @ 25 mls/hr IVPB Q8H [facility] Rx#: [id number] Sodium Chloride 0.9% 1, 40 210 000 ml @ 10 mls/hr IV . Q24H [facility] Rx#:[id number] Output: Urine 480 900 Other: Voiding Method Indwelling Catheter Indwelling Catheter ABP, PAP, CO, CI - Last Documented Arterial Blood Pressure 53/36 - Exam -GENERAL: The patient is intubated and sedated HEENT: Pupils are round and equally reacting to light. EOMI. No scleral icterus. No conjunctival pallor. Normocephalic, atraumatic. No pharyngeal erythema. No thyromegaly. CARDIOVASCULAR: S1 and S2 present. No murmurs, rubs, or gallops. PULMONARY: Chest is clear to auscultation, no wheezing , no crackles. ABDOMEN: Soft, nontender, nondistended, normoactive bowel sounds. No palpable organomegaly. MUSCULOSKELETAL: No joint swelling or deformity. EXTREMITIES: No cyanosis, clubbing, or pedal edema. NEUROLOGICAL: Gross neurological examination did not reveal any focal deficits. SKIN: No rashes. no petechiae. - Labs CBC & Chem 7: 11/13/23 05:53 11/13/23 05:53 Labs: Abnormal Lab Results - Last 24 Hours (Table) 11/12/23 11/13/23 11/13/23 Range/Units 19:41 05:53 05:53 RBC 2.92 L (4.30-5.90) m/uL Hgb 8.8 L (13.0-17.5) gm/dL Hct 28.8 L (39.0-53.0) % MCHC 30.7 L (31.0-37.0) g/dL RDW 18.4 H (11.5-15.5) % Plt Count 110 L (150-450) k/uL Lymphocytes # 0.4 L (1.0-4.8) k/uL Chloride 113 H (98-107) mmol/L BUN 21 H (9-20) mg/dL Glucose 118 H (74-99) mg/dL POC Glucose (mg/dL) 138 H (70-110) mg/dL Calcium 7.3 L (8.4-10.2) mg/dL 11/13/23 Range/Units 06:30 RBC (4.30-5.90) m/uL Hgb (13.0-17.5) gm/dL Hct (39.0-53.0) % MCHC (31.0-37.0) g/dL RDW (11.5-15.5) % Plt Count (150-450) k/uL Lymphocytes # (1.0-4.8) k/uL Chloride (98-107) mmol/L BUN (9-20) mg/dL Glucose (74-99) mg/dL POC Glucose (mg/dL) 143 H (70-110) mg/dL Calcium (8.4-10.2) mg/dL Assessment and Plan Assessment: Septic shock secondary to healthcare associated pneumonia versus postobstructive pneumonia with endorgan dysfunction including hypoxia and altered mental status Acute hypoxic respiratory failure requiring intubation and mechanical ventilation Metabolic/toxic encephalopathy secondary to above Lung cancers with evidence of metastatic disease to the bone and possible pericardium Pericardial effusion 1.6 cm Osteolytic lesion of the 11 suspicious for metastatic disease Possible pathological fracture of the left acromion Moderate left pleural effusion could be malignant Acute COPD/asthma exacerbation Plan: Continue with antibiotic Zithromax and Zosyn Continue with sedation holiday per pulmonary/critical care team Continue with IV Solu-Medrol 80 mg every 6 hours. And Normal Saline discontinued Continue with pressors as per needed and per pulmonary/critical care team will follow the patient closely Cardiology consult GI prophylaxis Protonix DVT prophylaxis heparin Prognosis is very guarded
[2023-11-14 06:08] LABS: Anisocytosis Slight; Basophils % (A) 0 %; Eosinophils % (A) 0 %; HCT 29.5 % (39.0-53.0); HGB 8.9 gm/dL (13.0-17.5); Hypochromasia Marked; Lymphocytes # (A) 0.4 k/uL (1.0-4.8); Lymphocytes % (A) 7 %; MCH 29.9 pg (25.0-35.0); MCHC 30.2 g/dL (31.0-37.0); MCV 99.1 fL (80.0-100.0); Macrocytosis Slight; Mean Platelet Volume 8.5; Monocytes # (A) 0.3 k/uL (0-1.0); Monocytes % (A) 7 %; Neutrophils # (A) 4.1 k/uL (1.3-7.7); Neutrophils % (A) 84 %; Platelet Count 100 k/uL (150-450); RBC 2.98 m/uL (4.30-5.90); WBC 4.9 k/uL (3.8-10.6)
[2023-11-14 06:22] LABS: African American GFR (CKD) 88 (>60 ml/min/1.73 sqM); Anion Gap 0 mmol/L; Blood Urea Nitrogen 16 mg/dL (9-20); Calcium 7.5 mg/dL (8.4-10.2); Carbon Dioxide 26 mmol/L (22-30); Chloride 114 mmol/L (98-107); Glucose 106 mg/dL (74-99); Non-African American GFR(CKD) 76 (>60 ml/min/1.73 sqM); Potassium 4.3 mmol/L (3.5-5.1); Sodium 140 mmol/L (137-145)
--- NOTE | 2023-11-14 11:24 | P.PN ---
Subjective Progress Note Date: 11/14/23 Acute hypoxic and hypercapnic respiratory failure This is a 78-year-old male patient with a history of hypertension hyperlipidemia, mild intermittent bronchial asthma, former smoker. 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 Most recently taking Braftovi and Mektovi, and also Zometa infusions. Established Oncologist is Dr. Leigh. He had a follow-up PET scan on September 22, 2023 that revealed minimal response to therapy. Left lower lobe pulmonary nodule not significantly changed from previous. Decreasing FDG activity in the left perihilar activity as well as left pulmonary hilum lymph node. FDG activity within the osseous structures is mixed response and some decrease in FDG while others have increased. New small left pleural effusion. Of note, patient recently treated inpatient for left lower lobe pneumonia in August,. Discharged on 09/27/23 with course of Moxifloxacin. Patient apparently presented back to the ED late last night with a chief complaint of dyspnea. Currently, intubated and unable to provide information for HPI. Family is present at bedside, stating that the patient was not acting hi mself at home. Reportedly intermittently confused over the last 2 weeks. Also, noted to be more short of breath and usual. Initial chest x-ray showing a persistent left lower lobe infiltrate and/or small left pleural effusion. Patient was admitted with a diagnosis of pneumonia. Late last night, soon after his admission, patient was found unresponsive with agonal breathing pattern. Patient's family was contacted, apparently he is a full code. I recommended that the patient be intubated. [employer] presented at the bedside performed rapid sequence intubation. He was then transferred to the intensive care unit. Initial blood gas consistent with hypercapnic respiratory failure. PaO2 118, pCO2 of 63, pH of 7.21. This is done with initial ventilator settings of assist-control, respiratory rate 18, tidal volume 450, FiO2 of 100%, and PEEP of 5. Respiratory rate was increased to 24. Weaned FiO2 down to 80%. He is currently synchronous mechanical ventilator, sedated on propofol at 25 mcg/ kg/min. No significant endotracheal secretions. Peak pressures are low at 18. Follow-up chest x-ray shows endotracheal tube about 2.5 cm from the júnior. Orogastric tube extends with into the stomach. Bilateral pleural effusions, greater on the left. Nonspecific airspace opacities in the mid and lower lung zones bilaterally left greater than right. Compressive atelectasis versus infective infiltrates. Patient is currently empirically covered on antibiotics in the form of azithromycin and Zosyn. He is afebrile. He is hypotensive, currently requiring norepinephrine which is infusing at 0.14 mcg/kg/min. Arterial line was established by [employer]. CBC: WBC count 6, hemoglobin 12.5, hematocrit 40.9, platelets 171. CMP: Sodium 137, potassium 4.7, chloride 106, serum bicarb 25, BUN 27, creatinine 1.75, glucose 94. LFTs mildly elevated. NT proBNP elevated at 5450. Troponin less than 0.012. D-dimer was elevated at 2.[address] angio protocol was initiated. Poor contrast bolus timing, however, no obvious saddle pulmonary embolism identified. Large pericardial effusion measuring 1.6 cm. He has bilateral pleural effusions left greater than right, with associated bilateral compressive atelectasis versus infiltrates. 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 Brain CT was also done while downstairs , no acute intracranial process noted. Patient was evaluated today on 11/10/2023, remains in the ICU remains intubated and mechanically ventilated. Patient is on assist-control rate of 24 tidal volume 450 FiO2 50% and I cut it down to 35%, PEEP of 5. ABG this morning showed a pO2 of 131 pCO2 42 pH of 7.33. Patient is requiring norepinephrine at 0.14 mcg/kg/min he is also on propofol at 30 mg/kg/min IV fluid running at 100 cc/h. Patient remains on antibiotics empirically in the form of Zithromax and Zosyn. Echocardiogram showed small pericardial effusion, however could not assess LV function, cardiology is planning repeat echocardiogram to decide whether the patient may require pericardiocentesis presently no evidence of tamponade. Chest x-ray is showing evidence of pulmonary vascular congestion, suggestive of mild congestive heart failure, there is left pleural effusion, left congestive heart failure does not seem to be overt. Labs today WBC 7.5 hemoglobin is 11. Basic metabolic profile is normal BUN is 37 creatinine 2.03 slightly worse compared to admission creatinine of 1.75. Patient was today on 11/11/2023, remains in the ICU, patient was extubated yesterday, tolerated the extubation well, does not seem to be in any distress, on 4 L nasal cannula, blood pressure is stable, patient remains on Zosyn empirically, remains on diuretics. Follow-up ultrasound of the chest showed small pocket of fluid in the left pleural space, hence I have no plans to perform thoracentesis on this patient his initial echocardiogram showed moderate pericardial effusion, the plan was to repeat his echocardiogram and decide whether the patient will benefit from pericardiocentesis. Clinically the patient is doing well at present, basically asymptomatic, feels much better compared to how he felt when he came in chest x-ray shows bibasilar infiltrates and effusions. Left more so than right WBC count is 9.5 hemoglobin is 9 basic metabolic profile is normal BUN is 37 creatinine 1.75, steadily improving over the last couple days Patient was evaluated today on 11/12/2023, patient remains in the ICU, extubated 2 days ago, tolerated the extubation well,Patient is on 3 L nasal cannula, O2 saturation 97%, patient is comfortable, does not seem to be in any distress.WBC count is 6.4 hemoglobin 8.5 basic metabolic profile is normal renal profile is normal with a BUN of 28 creatinine 1.25. Renal functioning has been steadily improving no chest x-ray done today, but his follow-up chest x-ray yesterday and ultrasound of the chest showed improvement in his pleural effusion. His ren cardial effusion is being addressed by cardiology on the case. Of course there is a concern about the possibility of malignant pericardial effusion as well as concern about malignant pleural effusion. But at this point no thoracentesis and no pericardiocentesis are planned. Patient was eval today on 11/13/2023, doing well, remains in the ICU as an overflow, he is on 3 L nasal cannula not in any distress. No cough no wheezing no shortness of breath. Remains on antibiotics. WBC count is 5.2 hemoglobin 8.8 electrolytes are normal renal profile showed a BUN of 21 creatinine 1.11, steadily improving compared to creatinine of 1.75 on admission Patient was evaluated today on 11/14/2023. Reports doing well, remains in the ICU as an overflow. He is currently on 3L nasal cannula not in any acute distress. Patient denied coughing, wheezing, shortness of breath or chest pain. Patient denied any fever, chills, nausea, vomiting. He remains on Zosyn. WBC count is at 4.9, hemoglobin of 8.9. Normal renal profile BUN of 16 and creatinine of 0.95. Patient will be discharged to [facility] today. Objective - Vital Signs Vital signs: Vital Signs Temp 98 F 11/14/23 09:21 Pulse 86 11/14/23 11:02 Resp 20 11/14/23 11:02 BP 126/70 11/14/23 09:21 Pulse Ox 98 11/14/23 09:21 FiO2 40 11/10/23 12:00 Intake & Output 11/13/23 11/14/23 11/14/23 18:59 06:59 18:59 Intake Total 918 966 4426 Output Total 350 150 150 Balance -250 -50 900 Weight 97.9 kg Intake: IV 100 100 50 Piperacillin-Tazobactam 3 100 100 50 .375 gm In Sodium Chloride 0.9% 100 ml @ 25 mls/hr IVPB Q8H [facility] Rx#: [id number] Oral 1000 Output: Urine 350 150 150 Other: Voiding Method Toilet Toilet Toilet Urinal Urinal Urinal # Voids 1 1 # Bowel Movements 1 ABP, PAP, CO, CI - Last Documented Arterial Blood Pressure 53/36 - Exam GENERAL EXAM: Revealed a 78-year-old white male on 3 L nasal cannula, not in distress, O2 saturation is 98% HEAD: Normocephalic and atraumatic EYES: PERRLA, EOMI, nonicteric. NOSE: Clear with pink turbinates. THROAT: No erythema or exudates. Endotracheal tube and orogastric tube are in tact. NECK: No masses, no JVD. CHEST: No chest wall deformity. LUNGS: Clear to auscultation bilaterally, no murmurs/wheezing/rhonchi/stridor CVS: Regular heart rate, no murmurs ABDOMEN: Soft, nondistended, nontender to palpation SKIN: No rashes CENTRAL NERVOUS SYSTEM: Alert and oriented x 3 no gross focal neurologic deficit EXTREMITIES: Trace edema lower extremity bilaterally - Labs CBC & Chem 7: 11/14/23 05:40 11/14/23 05:40 Labs: Abnormal Lab Results - Last 24 Hours (Table) 11/14/23 11/14/23 Range/Units 05:40 05:40 RBC 2.98 L (4.30-5.90) m/uL Hgb 8.9 L (13.0-17.5) gm/dL Hct 29.5 L (39.0-53.0) % MCHC 30.2 L (31.0-37.0) g/dL RDW 18.0 H (11.5-15.5) % Plt Count 100 L (150-450) k/uL Lymphocytes # 0.4 L (1.0-4.8) k/uL Chloride 114 H (98-107) mmol/L Glucose 106 H (74-99) mg/dL Calcium 7.5 L (8.4-10.2) mg/dL Microbiology - Last 24 Hours (Table) 11/08/23 21:53 Blood Culture - Final Blood Assessment and Plan Assessment: Impression: Acute hypoxemic and hypercapnic respiratory failure, multifactorial secondary to bilateral pleural effusions with likely associated compressive atelectasis vs infectious process, cannot rule out pneumonia metastatic stage IV lung cancer, underlying COPD based on his previous PFT and previous outpatient workup, mild to moderate. Patient required intubation mechanical ventilation on his initial presentation extubated few days ago, he is presently an overflow in the ICU. Acute hypotension, following intubation, responded to fluid resuscitation Elevated D-dimer, CT angio protocol, no obvious saddle pulmonary embolism. Moderate pericardial effusion, measuring 1.[address] repeat echocardiogram is, pending Acute kidney injury secondary to hypotension and ATN improving based on labs today. Stage IV non-small cell lung cancer, currently on Braftovi and Mektovi. Chronic anemia History of hypertension History of hyperlipidemia History of obstructive sleep apnea Former tobacco dependence Recommendation: Patient will be discharged to [facility] today Continue antibiotics empirically Sputum culture showed positive for Lilo. Blood cultures has been negative. Renal functioning is significantly improved May need repeat echocardiogram to follow-up on his pericardial effusion early next week, patient being followed by cardiology Continue GI DVT prophylaxis Will continue to follow Time with Patient: Less than 30
--- NOTE | 2023-11-14 14:28 | P.PN ---
Subjective Progress Note Date: 11/14/23 78 years old male with past medical history of multiple medical problems including Asthma, Cancer, COPD, GERD/Reflux, Hyperlipidemia, Hypertension, Pneumonia, Prostate Disorder, Rheumatoid Arthritis (RA), Sleep Apnea/CPAP/BIPAP Patient presents because of increased work of breathing and feeling weak. He has history of lung cancer. 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 Patient also was hypotensive and he will had to be started on pressors. Patient currently in room 263 is on mechanical ventilation and cannot provide in formation Currently remains on Levophed, he is afebrile, tachycardic and tachypneic Labs showing hemoglobin low 12.5 and 10.7, high creatinine 1.75 and 1.85 baseline 1.2-1.5. Liver enzymes moderately elevated D-dimer is elevated 2.5. proBNP is elevated 5450 Chest x-ray showing left lower lobe infiltrate with small pleural effusion EKG showing sinus tachycardia at [address]-T changes pH was 7.2 but came back to reference range at 7.3 Procalcitonin is elevated 0.69 CTA of the chest showing large pericardial effusion at 1.6 cm with a osteolytic metastatic lesion of T12 and possible pathological fracture at left acromion and moderate left pleural effusion 11/12/2023 --patient is seen and evaluated sitting up in bedside chair; remains in the ICU, currently on 3 L nasal cannula, O2 saturation 97%, patient is comfortable Blood work reveals WBC count is 6.4 hemoglobin 8.5 basic metabolic profile is normal renal profile is normal with a BUN of 28 creatinine 1.25. -- follow-up chest x-ray yesterday and ultrasound of the chest showed impr ovement in his pleural effusion. -Cardiology on board for pericardial effusion. - no thoracentesis and no pericardiocentesis are planned. Patient stable to be transferred to selective care unit; remains on IV Zosyn; patient has been pancultured and has been negative so far 11/13/2023 Patient is seen and eval in room with nursing staff at bedside; reports he is doing well, currently on O2 on 3 L nasal cannula not in any distress. No cough no wheezing no shortness of breath. Remains on antibiotics in form of IV Zosyn. -Lab review shows WBC count is 5.2 hemoglobin 8.8 electrolytes are normal renal profile showed a BUN of 21 creatinine 1.11, steadily improving compared to creatinine of 1.75 on admission Pulmonary service on board and recommending to continue with IV antibiotics empirically; patient has been pancultured and cultures have been negative so far Cardiology following for pericardial effusion; plan for repeat echocardiogram early next week with further recommendations -- Patient to be transferred out to selective care unit 11/13. Patient seen and examined. Denies any shortness of breath at rest, gets short of breath on exertion. PT and OT evaluation pending REVIEW OF SYSTEMS: CONSTITUTIONAL: No fever, no malaise,. CARDIOVASCULAR: As mentioned above PULMONARY: No shortness of breath, no cough, GASTROINTESTINAL: No diarrhea, no nausea, no vomiting, no abdominal pain. NEUROLOGICAL: No headaches, no weakness, PHYSICAL EXAMINATION: GENERAL: The patient is alert and oriented x3, chronically ill looking HEENT: Pupils are round and equally reacting to light. EOMI. No scleral icterus. No conjunctival pallor. Normocephalic, atraumatic. No pharyngeal erythema. No thyromegaly. CARDIOVASCULAR: S1 and S2 present. No murmurs, rubs, or gallops. PULMONARY: Coarse breath sound bilaterally, no wheezing or crackles. ABDOMEN: Soft, nontender, nondistended, normoactive bowel sounds. No palpable organomegaly. MUSCULOSKELETAL: No joint swelling or deformity. EXTREMITIES: No cyanosis, clubbing, 1+ pitting edema lower extremities bila terally NEUROLOGICAL: Gross neurological examination did not reveal any focal deficits. SKIN: No rashes. Assessment and plan Septic shock secondary to healthcare associated pneumonia versus postobstructive pneumonia with endorgan dysfunction including hypoxia and altered mental status Acute hypoxic respiratory failure requiring intubation and mechanical ventilation Metabolic/toxic encephalopathy secondary to above Lung cancers with evidence of metastatic disease to the bone and possible peric ardium Pericardial effusion 1.6 cm Osteolytic lesion of the 11 suspicious for metastatic disease Possible pathological fracture of the left acromion Moderate left pleural effusion could be malignant Acute COPD/asthma exacerbation Monitor vital signs Monitor CBC Monitor CMP Continue telemetry monitoring Encourage use of incentive spirometer Continue oxygen supplementation Continue IV Zosyn Continue breathing treatments continue IV Solu-Medrol pulmonary following cardiology following PT and OT consulted Labs and medication were reviewed.. Continue same treatment. Continue with symptomatic treatment. Resume home medication. Monitor labs and vitals. DVT and GI prophylaxis. Further recommendations as per clinical course of the patient Dictation was produced using [employer] dictation software. please excuse any grammatical, word or spelling errors. Objective - Vital Signs Vital signs: Vital Signs Temp 98 F 11/14/23 09:21 Pulse 86 11/14/23 13:30 Resp 20 11/14/23 13:30 BP 126/70 11/14/23 09:21 Pulse Ox 98 11/14/23 09:21 FiO2 40 11/10/23 12:00 Intake & Output 11/13/23 11/14/23 11/14/23 18:59 06:59 18:59 Intake Total 249 665 8058 Output Total 350 150 150 Balance -250 -50 1400 Weight 97.9 kg Intake: IV 100 100 50 Piperacillin-Tazobactam 3 100 100 50 .375 gm In Sodium Chloride 0.9% 100 ml @ 25 mls/hr IVPB Q8H [facility] Rx#: [id number] Oral 1500 Output: Urine 350 150 150 Other: Voiding Method Toilet Toilet Toilet Urinal Urinal Urinal # Voids 1 1 # Bowel Movements 1 ABP, PAP, CO, CI - Last Documented Arterial Blood Pressure 53/36 - Labs CBC & Chem 7: 11/14/23 05:40 11/14/23 05:40 Labs: Abnormal Lab Results - Last 24 Hours (Table) 11/14/23 11/14/23 Range/Units 05:40 05:40 RBC 2.98 L (4.30-5.90) m/uL Hgb 8.9 L (13.0-17.5) gm/dL Hct 29.5 L (39.0-53.0) % MCHC 30.2 L (31.0-37.0) g/dL RDW 18.0 H (11.5-15.5) % Plt Count 100 L (150-450) k/uL Lymphocytes # 0.4 L (1.0-4.8) k/uL Chloride 114 H (98-107) mmol/L Glucose 106 H (74-99) mg/dL Calcium 7.5 L (8.4-10.2) mg/dL Microbiology - Last 24 Hours (Table) 09/10/24 21:53 Blood Culture - Final Blood
--- NOTE | 2023-11-14 15:10 | P.PN ---
Subjective Progress Note Date: 11/14/23 Seen in ICU. Reports feeling much better, SOB significantly improved. Counts stable. Afebrile, continues on zosyn. SPO2 96% on 3L Objective - Vital Signs Vital signs: Vital Signs Temp 98 F 11/14/23 09:21 Pulse 86 11/14/23 09:21 Resp 20 11/14/23 09:21 BP 126/70 11/14/23 09:21 Pulse Ox 98 11/14/23 09:21 FiO2 40 11/10/23 12:00 Intake & Output 11/13/23 11/14/23 11/14/23 18:59 06:59 18:59 Intake Total 100 100 Output Total 350 150 Balance -250 -50 Weight 97.9 kg Intake: IV 100 100 Piperacillin-Tazobactam 3 100 100 .375 gm In Sodium Chloride 0.9% 100 ml @ 25 mls/hr IVPB Q8H [facility] Rx#: [id number] Output: Urine 350 150 Other: Voiding Method Toilet Toilet Urinal Urinal # Voids 1 # Bowel Movements 1 ABP, PAP, CO, CI - Last Documented Arterial Blood Pressure 53/36 - Constitutional General appearance: Present: average body habitus, no acute distress - EENT Eyes: Present: anicteric sclerae, EOMI ENT: Present: hearing grossly normal - Respiratory Details: breathing is even and unlabored - Cardiovascular Details: skin warm and dry - Integumentary Integumentary: Absent: cyanotic - Musculoskeletal Musculoskeletal: Present: strength equal bilaterally - Psychiatric Psychiatric: Present: A&O x's 3 - Labs CBC & Chem 7: 11/14/23 05:40 11/14/23 05:40 Labs: Abnormal Lab Results - Last 24 Hours (Table) 11/14/23 11/14/23 Range/Units 05:40 05:40 RBC 2.98 L (4.30-5.90) m/uL Hgb 8.9 L (13.0-17.5) gm/dL Hct 29.5 L (39.0-53.0) % MCHC 30.2 L (31.0-37.0) g/dL RDW 18.0 H (11.5-15.5) % Plt Count 100 L (150-450) k/uL Lymphocytes # 0.4 L (1.0-4.8) k/uL Chloride 114 H (98-107) mmol/L Glucose 106 H (74-99) mg/dL Calcium 7.5 L (8.4-10.2) mg/dL Microbiology - Last 24 Hours (Table) 11/08/23 21:53 Blood Culture - Final Blood Assessment and Plan (1) Respiratory arrest Current Visit: Yes Status: Acute Priority: High Code(s): R09.2 - RESPIRATORY ARREST SNOMED Code(s): 23107053 (2) Lung cancer Current Visit: Yes Status: Acute Priority: High Code(s): C34.90 - JAZMYN GNANT NEOPLASM OF UNSP PART OF UNSP BRONCHUS OR LUNG SNOMED Code(s): 522719321 (3) Pericardial effusion Current Visit: Yes Status: Acute Priority: High Code(s): I31.39 - OTHER PERICARDIAL EFFUSION (NONINFLAMMATORY) SNOMED Code(s): 125677312 Plan: Acute respiratory failure, pericardial effusion: Presented to the emergency room for shortness of breath. Due to respiratory distress patient was transferred to ICU and was intubated -CTA of chest showed large pericardial effusion measuring 1.6 cm negative for PE. No RV strain noted. 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 Moderate left and small right pleural effusions. Compressive atelectasis in the bilateral dependent lung garcia, left greater than right. -Continues Zosyn. Sputum culture positive for brooklynn -Cardiology has been consulted and echocardiogram ordered. May need pericardial window. If obtained, will request cytology on pericardial fluid -Echo revealed moderate pericardial effussion. Repeat echo showed decreasing pericardial effusion -Defer management to ICU and cardiology teams NSCLC: -Oncology history and plan as dictated in HPI -He has ontinued Braftovi at 150 mg daily and Mektovi at 30 mg twice daily. He has been taking Braftovi at 150 mg daily since 10/15/2023 -Hold Braftovi/Mektovi -Despite having to hold treatment multiple times over the last couple months due to repeat hospitalizations, his disease has been overall stable. Don't believe current acute respiratory failure is r/t disease progression. -Repeat staging scans planned for later next month -Clinic f/u scheduled for next week with Dr. Gi Leigh, at which time will further discuss other treatment options. Patient instructed to continue to hold Braftovi/Mektovi until f/u appt
--- NOTE | 2023-11-14 16:21 | P.PN ---
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 The patient was seen in the ICU and currently is intubated on mechanical ventilation and the history was taken from the chart and nurse taking care of the patient. The patient presented with increasing shortness of breath with no symptoms of chest pain or chest discomfort or dizziness or lightheadedness or presyncope or syncope. He was found to be in acute respiratory distress and he underwent intubation in the emergency department subsequently he was placed on mechanical ventilation and admitted to the intensive care unit. He underwent further investigation including an EKG and that showed sinus mechanism and subsequently chest x-ray showed cardiomegaly. Subsequently CT scan of the chest was performed and showed large pericardial effusion with moderate pleural effusion. The patient currently is hemodynamically unstable and requiring small dose of norepinephrine. We are going to obtain an echocardiogram as soon as possible and if he does have any evidence of tamponade physiology the patient need to undergo pericardial window and not pericardiocentesis just because of the nature of the pericardial effusion which is malignant and likely to be recurrent. The physical examination is remarkable for regular rate and rhythm with a distant heart sounds and a soft systolic murmur at the right upper sternal border with diminished breathing sounds bilaterally and no edema was noted in the lower extremities November 10, 2023 The patient was seen and evaluated this morning. He still intubated on mechanical ventilation and hemodynamically still unstable requiring small dose of norepinephrine but the echo showed moderate pericardial effusion and no tamponade physiology was noted on the echocardiogram from yesterday. The physical examination is remarkable for regular rate and rhythm with a systolic murmur at the right upper sternal border and clear breathing sounds bilaterally and no edema was noted November 11, 2023 The patient was seen and evaluated this morning. He is off norepinephrine at this point. I am going to obtain an echo to assess for any change in the size of the pericardial effusion but he is maintaining normal sinus mechanism. No symptoms of chest pain or chest discomfort. And the patient is extubated as well. The physical examination is remarkable for regular rhythm with a soft systolic murmur and clear breathing sounds bilaterally and no edema was noted in the lower extremities November 12, 2023 The patient was seen and evaluated this morning. He is doing better. He is not on any vasopressors anymore. He is hemodynamically stable. The echo/repeated echo still pending. Examination is remarkable for regular rhythm with a soft systolic murmur and diminished breathing sounds bilaterally and no edema was noted in the lower extremities November 13, 2023 The patient was seen and evaluated this morning. He is asymptomatic and hemodynamically stable with the repeated echo showed improvement in the pericardial effusion and now is a small with no evidence of any tamponade physiology. The physical examination is remarkable for regular rhythm with a soft systolic murmur and clear breathing sounds bilaterally and no edema was noted in the lower extremities November 14, 2023 Patient is evaluated this morning. Hemodynamically stable, telemetry shows sinus rhythm. On exam he has regular pulses, he does have a 2 or 6 systolic murmur in aortic area, clear breath sounds in bilateral lung garcia with mild crackles audible in bases most likely due to atelectasis No swelling bilateral extremity Assessment Acute hypoxic respiratory failure Moderate circumferential pericardial effusion with no tamponade physiology Bilateral pleural effusion Adenocarcinoma of the lung with metastasis to liver and bone Multiple comorbid conditions Acute renal failure Plan Continue the current medical regimen Repeated echo showed improvement in the pericardial effusion At this time patient is stable from cardiovascular standpoint. Cardiology team will sign off. Please reconsult us in case of any question. Objective - Vital Signs Vital signs: Vital Signs Temp 98 F 11/14/23 13:00 Pulse 88 11/14/23 15:45 Resp 16 11/14/23 15:45 BP 128/72 11/14/23 13:00 Pulse Ox 96 11/14/23 14:16 FiO2 40 11/10/23 12:00 Intake & Output 11/13/23 11/14/23 11/14/23 18:59 06:59 18:59 Intake Total 001 129 3271 Output Total 350 150 150 Balance -250 -50 1400 Weight 97.9 kg Intake: IV 100 100 50 Piperacillin-Tazobactam 3 100 100 50 .375 gm In Sodium Chloride 0.9% 100 ml @ 25 mls/hr IVPB Q8H [facility] Rx#: [id number] Oral 1500 Output: Urine 350 150 150 Other: Voiding Method Toilet Toilet Toilet Urinal Urinal Urinal # Voids 1 1 # Bowel Movements 1 ABP, PAP, CO, CI - Last Documented Arterial Blood Pressure 53/36 - Labs CBC & Chem 7: 11/14/23 05:40 11/14/23 05:40 Labs: Abnormal Lab Results - Last 24 Hours (Table) 11/14/23 11/14/23 Range/Units 05:40 05:40 RBC 2.98 L (4.30-5.90) m/uL Hgb 8.9 L (13.0-17.5) gm/dL Hct 29.5 L (39.0-53.0) % MCHC 30.2 L (31.0-37.0) g/dL RDW 18.0 H (11.5-15.5) % Plt Count 100 L (150-450) k/uL Lymphocytes # 0.4 L (1.0-4.8) k/uL Chloride 114 H (98-107) mmol/L Glucose 106 H (74-99) mg/dL Calcium 7.5 L (8.4-10.2) mg/dL Microbiology - Last 24 Hours (Table) 11/08/23 21:53 Blood Culture - Final Blood
[2023-11-15 04:42] VITALS: TEMP 98.2
--- NOTE | 2023-11-15 10:47 | P.PN ---
Subjective Progress Note Date: 11/15/23 Principal diagnosis: Respiratory failure. This is a 78-year-old male patient with a history of hypertension hyperlipidemia, mild intermittent bronchial asthma, former smoker. 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 Most recently taking Braftovi and Mektovi, and also Zometa infusions. Established Oncologist is Dr. Leigh. He had a follow-up PET scan on September 22, 2023 that revealed minimal response to therapy. Left lower lobe pulmonary nodule not significantly changed from previous. Decreasing FDG activity in the left perihilar activity as well as left pulmonary hilum lymph node. FDG activity within the osseous structures is mixed response and some decrease in FDG while others have increased. New small left pleural effusion. Of note, patient recently treated inpatient for left lower lobe pneumonia in August,. Discharged on 09/27/23 with course of Moxifloxacin. Patient apparently presented back to the ED late last night with a chief complaint of dyspnea. Currently, intubated and unable to provide information for HPI. Family is present at bedside, stating that the patient was not acting himself at home. Reportedly intermittently confused over the last 2 weeks. Also, noted to be more short of breath and usual. Initial chest x-ray showing a persistent left lower lobe infiltrate and/or small left pleural effusion. Patient was admitted with a diagnosis of pneumonia. Late last night, soon after his admission, patient was found unresponsive with agonal breathing pattern. Patient's family was contacted, apparently he is a full code. I recommended that the patient be intubated. MOLD CHANGER presented at the bedside performed rapid sequence intubation. He was then transferred to the intensive care unit. Initial blood gas consistent with hypercapnic respiratory failure. PaO2 118, pCO2 of 63, pH of 7.21. This is done with initial ventilator settings of assist-control, respiratory rate 18, tidal volume 450, FiO2 of 100%, and PEEP of 5. Respiratory rate was increased to 24. Weaned FiO2 down to 80%. He is currently synchronous mechanical ventilator, sedated on propofol at 25 mcg/kg/min. No significant endotracheal secretions. Peak pressures are low at 18. Follow-up chest x-ray shows endotracheal tube about 2.5 cm from the júnior. Orogastric tube extends with into the stomach. Bilateral pleural effusions, greater on the left. Nonspecific airspace opacities in the mid and lower lung zones bilaterally left greater than right. Compressive atelectasis versus infective infiltrates. Patient is currently empirically covered on antibiotics in the form of azithromycin and Zosyn. He is afebrile. He is hypotensive, currently requiring norepinephrine which is infusing at 0.14 mcg/kg/min. Arterial line was established by MOLD CHANGER. CBC: WBC count 6, hemoglobin 12.5, hematocrit 40.9, platelets 171. CMP: Sodium 137, potassium 4.7, chloride 106, serum bicarb 25, BUN 27, creatinine 1.75, glucose 94. LFTs mildly elevated. NT proBNP elevated at 5450. Troponin less than 0.012. D-dimer was elevated at 2.[address] angio protocol was initiated. Poor contrast bolus timing, however, no obvious saddle pulmonary embolism identified. Large pericardial effusion measuring 1.6 cm. He has bilateral pleural effusions left greater than right, with associated bilateral compressive atelectasis versus infiltrates. 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 Brain CT was also done while downstairs, no acute intracranial process noted. Patient was evaluated today on 11/10/2023, remains in the ICU remains intubated and mechanically ventilated. Patient is on assist-control rate of 24 tidal volume 450 FiO2 50% and I cut it down to 35%, PEEP of 5. ABG this morning showed a pO2 of 131 pCO2 42 pH of 7.33. Patient is requiring norepinephrine at 0.14 mcg/kg/min he is also on propofol at 30 mg/kg/min IV fluid running at 100 cc/h. Patient remains on antibiotics empirically in the form of Zithromax and Zosyn. Echocardiogram showed small pericardial effusion, however could not assess LV function, cardiology is planning repeat echocardiogram to decide whether the patient may require pericardiocentesis presently no evidence of tamponade. Chest x-ray is showing evidence of pulmonary vascular congestion, suggestive of mild congestive heart failure, there is left pleural effusion, left congestive heart failure does not seem to be overt. Labs today WBC 7.5 hemoglobin is 11. Basic metabolic profile is normal BUN is 37 creatinine 2.03 slightly worse compared to admission creatinine of 1.75. Patient was today on 11/11/2023, remains in the ICU, patient was extubated yester day, tolerated the extubation well, does not seem to be in any distress, on 4 L nasal cannula, blood pressure is stable, patient remains on Zosyn empirically, remains on diuretics. Follow-up ultrasound of the chest showed small pocket of fluid in the left pleural space, hence I have no plans to perform thoracentesis on this patient his initial echocardiogram showed moderate pericardial effusion, the plan was to repeat his echocardiogram and decide whether the patient will benefit from pericardiocentesis. Clinically the patient is doing well at present, basically asymptomatic, feels much better compared to how he felt when he came in chest x-ray shows bibasilar infiltrates and effusions. Left more so than right WBC count is 9.5 hemoglobin is 9 basic metabolic profile is normal BUN is 37 creatinine 1.75, steadily improving over the last couple days Patient was evaluated today on 11/12/2023, patient remains in the ICU, extubated 2 days ago, tolerated the extubation well,Patient is on 3 L nasal cannula, O2 saturation 97%, patient is comfortable, does not seem to be in any distress.WBC count is 6.4 hemoglobin 8.5 basic metabolic profile is normal renal profile is normal with a BUN of 28 creatinine 1.25. Renal functioning has been steadily improving no chest x-ray done today, but his follow-up chest x-ray yesterday and ultrasound of the chest showed improvement in his pleural effusion. His pericardial effusion is being addressed by cardiology on the case. Of course there is a concern about the possibility of malignant pericardial effusion as well as concern about malignant pleural effusion. But at this point no thoracentesis and no pericardiocentesis are planned. Patient was eval today on 11/13/2023, doing well, remains in the ICU as an overflow, he is on 3 L nasal cannula not in any distress. No cough no wheezing no shortness of breath. Remains on antibiotics. WBC count is 5.2 hemoglobin 8.8 electrolytes are normal renal profile showed a BUN of 21 creatinine 1.11, steadily improving compared to creatinine of 1.75 on admission Patient was evaluated today on 11/14/2023. Reports doing well, remains in the ICU as an overflow. He is currently on 3L nasal cannula not in any acute distress. Patient denied coughing, wheezing, shortness of breath or chest pain. Patient denied any fever, chills, nausea, vomiting. He remains on Zosyn. WBC count is at 4.9, hemoglobin of 8.9. Normal renal profile BUN of 16 and creatinine of 0.95. Patient will be discharged to [facility] today. Progress note dated November 15, 2023. The patient is seen today in room 263. He is doing very well. The patient is on 3 L of oxygen. No IV fluid. He continues on Zosyn, which will be discontinued today. He denies any shortness of breath, cough, wheezing, chest tightness, or phlegm production. He is hoping to be discharged soon. No new laboratory data today. The labs from November 13 have been reviewed. Objective - Vital Signs Vital signs: Vital Signs Temp 98.2 F 11/15/23 04:00 Pulse 68 11/15/23 08:58 Resp 18 11/15/23 08:58 BP 139/78 11/15/23 04:00 Pulse Ox 96 11/15/23 08:45 FiO2 40 11/10/23 12:00 Intake & Output 11/14/23 11/15/23 11/15/23 18:59 06:59 18:59 Intake Total 1550 100 Output Total 150 0 Balance 1400 100 Weight 97.8 kg Intake: IV 50 100 Piperacillin-Tazobactam 3 50 100 .375 gm In Sodium Chloride 0.9% 100 ml @ 25 mls/hr IVPB Q8H [facility] Rx#: [id number] Oral 1500 Output: Urine 150 0 Other: Voiding Method Toilet Toilet Toilet Urinal Urinal Urinal # Voids 1 1 # Bowel Movements 1 ABP, PAP, CO, CI - Last Documented Arterial Blood Pressure 53/36 - Exam No acute distress, oriented 3. 3 L nasal cannula. No respiratory difficulty. HEENT examination is grossly unremarkable. Mucous membranes are moist. No oral lesions. Neck supple. Full range of motion. No adenopathy thyromegaly or neck vein distention. Cardiovascular examination reveals regular rhythm rate. S1-S2 normal. No S3 or S4. No discernible murmur noted. Lungs reveal mild scattered rhonchi. No wheezes or crackles. Breath sounds equal bilaterally. Abdomen soft bowel sounds are heard. No masses or tenderness. Extremities are intact. No cyanosis clubbing or edema. Skin is without rash or lesion. Neurologic examination is brief but nonfocal. - Labs CBC & Chem 7: 11/14/23 05:40 11/14/23 05:40 Assessment and Plan Assessment: Acute hypoxemic and hypercapnic respiratory failure, multifactorial, secondary to bilateral pleural effusions, compressive atelectasis, and possible underlying pneumonia. Acute hypotension, following intubation, likely related to volume depletion. CT angiogram negative for pulmonary embolism. Moderate pericardial effusion. Acute kidney injury, secondary to hypotension, and ATN. Stage IV non-small cell lung cancer. Chronic anemia. History of hypertension. History of hyperlipidemia. History of obstructive sleep apnea syndrome. History of previous tobacco use. Plan: Plan dated November 15, 2023. The patient is anxious, could be discharged. He is currently on 3 L. Zosyn will be discontinued. He is not receiving any IV fluids. Labs, x-rays, medications are reviewed. We will continue to follow make recommendations along the way. Prognosis is guarded. Time with Patient: Less than 30
[2023-11-15 12:03] VITALS: RESP 16
--- NOTE | 2023-11-15 12:19 | P.DS ---
Providers Date of admission: 11/08/23 21:36 Expected date of discharge: 11/15/23 Attending physician: Dank Mantilla Consults: 11/08/23 21:31 Consult Physician Routine Consulting Provider: Lucie Little Consult Reason/Comments: copd Do you want consulting provider notified?: Yes 11/08/23 21:35 Consult Physician Routine Consulting Provider: Monica Leigh Consult Reason/Comments: known Do you want consulting provider notified?: Yes Primary care physician: Nalini Palmer Hospital Course: Discharge diagnoses; Septic shock secondary to healthcare associated pneumonia versus postobstructive pneumonia with endorgan dysfunction including hypoxia and altered mental status, resolved Acute hypoxic respiratory failure requiring intubation and mechanical ventilation, resolved Metabolic/toxic encephalopathy resolved Lung cancers with evidence of metastatic disease to the bone and possible pericardium Pericardial effusion 1.6 cm Osteolytic lesion of the 11 suspicious for metastatic disease Possible pathological fracture of the left acromion Moderate left pleural effusion could be malignant Acute COPD/asthma exacerbation Hospital course; 78 years old male with past medical history of multiple medical problems including Asthma, Cancer, COPD, GERD/Reflux, Hyperlipidemia, Hypertension, Pneumonia, Prostate Disorder, Rheumatoid Arthritis (RA), Sleep Apnea/CPAP/BIPAP Patient presents because of increased work of breathing and feeling weak. He has history of lung cancer. On admission patient was hypoxic and he was placed on BiPAP and he was saturating 94% last night however hris administrator he desaturated more and a team was called and he had to be intubatedAnd moved to the ICU. Patient also was hypotensive and he will had to be started on pressors. Patient currently in room 263 is on mechanical ventilation and cannot provide information Currently remains on Levophed, he is afebrile, tachycardic and tachypneic Labs showing hemoglobin low 12.5 and 10.7, high creatinine 1.75 and 1.85 baseline 1.2-1.5. Liver enzymes moderately elevated D-dimer is elevated 2.5. proBNP is elevated 5450 Chest x-ray showing left lower lobe infiltrate with small pleural effusion EKG showing sinus tachycardia at [address]-T changes pH was 7.2 but came back to reference range at 7.3 Procalcitonin is elevated 0.69 CTA of the chest showing large pericardial effusion at 1.6 cm with a osteolytic metastatic lesion of T12 and possible pathological fracture at left acromion and moderate left pleural effusion 11/12/2023 --patient is seen and evaluated sitting up in bedside chair; remains in the ICU, currently on 3 L nasal cannula, O2 saturation 97%, patient is comfortable Blood work reveals WBC count is 6.4 hemoglobin 8.5 basic metabolic profile is normal renal profile is normal with a BUN of 28 creatinine 1.25. -- follow-up chest x-ray yesterday and ultrasound of the chest showed improvement in his pleural effusion. -Cardiology on board for pericardial effusion. - no thoracentesis and no pericardiocentesis are planned. Patient stable to be transferred to selective care unit; remains on IV Zosyn; patient has been pancultured and has been negative so far 11/13/2023 Patient is seen and eval in room with nursing staff at bedside; reports he is doing well, currently on O2 on 3 L nasal cannula not in any distress. No cough no wheezing no shortness of breath. Remains on antibiotics in form of IV Zosyn. -Lab review shows WBC count is 5.2 hemoglobin 8.8 electrolytes are normal renal profile showed a BUN of 21 creatinine 1.11, steadily improving compared to creatinine of 1.75 on admission Pulmonary service on board and recommending to continue with IV antibiotics empirically; patient has been pancultured and cultures have been negative so far Cardiology following for pericardial effusion; plan for repeat echocardiogram early next week with further recommendations -- Patient to be transferred out to selective care unit 11/13. Patient seen and examined. Denies any shortness of breath at rest, gets short of breath on exertion. PT and OT evaluation pending 11/14. Patient seen and examined.Hematology oncology following, outpatient follow-up with Dr. Gi Leigh, at which time will further discuss other treatment options. Patient instructed to continue to hold Braftovi/Mektovi until f/u appt. antibiotics were discontinued. Pulmonology cleared the patient for discharge. PHYSICAL EXAMINATION: GENERAL: The patient is alert and oriented x3, not in any acute distress. Ill looking HEENT: Pupils are round and equally reacting to light. EOMI. No scleral icterus. No conjunctival pallor. Normocephalic, atraumatic. No pharyngeal erythema. No thyromegaly. CARDIOVASCULAR: S1 and S2 present. No murmurs, rubs, or gallops. PULMONARY: Coarse breath sounds bilaterally, no wheezing or crackles. ABDOMEN: Soft, nontender, nondistended, normoactive bowel sounds. No palpable organomegaly. MUSCULOSKELETAL: No joint swelling or deformity. EXTREMITIES: No cyanosis, clubbing, or pedal edema. NEUROLOGICAL: Gross neurological examination did not reveal any focal deficits. SKIN: No rashes. Dictation was produced using [employer] dictation software. please excuse any grammatical, word or spelling errors. Patient Condition at Discharge: Fair Plan - Discharge Summary Discharge Rx Participant: No New Discharge Prescriptions: New predniSONE [Deltasone] 40 mg PO DAILY 4 Days #8 tab Continue allopurinoL [Zyloprim] 100 mg PO HS@1999 Pramipexole Di-HCl [Mirapex] 1.5 mg PO BID@0800,1999 Montelukast [Singulair] 10 mg PO HS@1999 carvediloL [Coreg] 3.125 mg PO BID@0800,2000 Tamsulosin [Flomax] 0.4 mg PO DAILY@0800 Ferrous Sulfate [Iron (65 MG Elemental)] 975 mg PO DAILY@1400 Ergocalciferol (Vitamin D2) [Drisdol (50,000 Iu)] 1,250 mcg PO Q14D Albuterol Sulfate [Albuterol Sulfate Hfa] 1 - 2 puff INHALATION RT-Q4H PRN PRN Reason: Shortness Of Breath Calcium Carbonate [Calcium] 600 mg PO BID@1400,2000 Cholecalciferol [Vitamin D3 (10 Mcg = 400 Iu)] 10 mcg PO BID@1400,2000 Docusate Sodium 250 mg PO DAILY@0800 Omeprazole [PriLOSEC] 40 mg PO DAILY@0800 Magnesium 250 mg PO DAILY@0800 Rosuvastatin Calcium [Crestor] 40 mg PO DAILY@0800 Furosemide [Lasix] 40 mg PO BID@0800,1400 Fluticasone Propion/Salmeterol [Advair 250-50 Diskus] 2 puff INHALATION RT- BID Albuterol Nebulized [Ventolin Nebulized] 2.5 mg INHALATION RT-DAILY Benralizumab [Fasenra] 30 mg SQ Q56D Zoledronic Acid [Zometa] 4 mg IV Q90D Ondansetron Odt [Zofran ODT] 4 mg PO DAILY PRN PRN Reason: Nausea Morphine Sulfate ER [Ms Contin] 30 mg PO BID PRN PRN Reason: Pain HYDROcodone/APAP 10-325MG [[place] 10-325] 1 tab PO Q6H PRN PRN Reason: Pain Discontinued Encorafenib [Braftovi] 75 mg PO BID Binimetinib [Mektovi] 30 mg PO BID Discharge Medication List Pramipexole Di-HCl [Mirapex] 1.5 mg PO BID@799,199901/03/14 [History] allopurinoL [Zyloprim] 100 mg PO HS@199901/03/14 [History] Albuterol Sulfate [Albuterol Sulfate Hfa] 1 - 2 puff INHALATION RT-Q4H PRN 04/15/23 [History] Ergocalciferol (Vitamin D2) [Drisdol (50,000 Iu)] 1,250 mcg PO Q14D 04/15/23 [History] Ferrous Sulfate [Iron (65 MG Elemental)] 975 mg PO DAILY@139904/15/23 [History] Fluticasone Propion/Salmeterol [Advair 250-50 Diskus] 2 puff INHALATION RT-BID 04/15/23 [History] Montelukast [Singulair] 10 mg PO HS@199904/15/23 [History] Tamsulosin [Flomax] 0.4 mg PO DAILY@79904/15/23 [History] carvediloL [Coreg] 3.125 mg PO BID@799,199904/15/23 [History] Albuterol Nebulized [Ventolin Nebulized] 2.5 mg INHALATION RT-DAILY 09/08/23 [History] Benralizumab [Fasenra] 30 mg SQ Q56D 09/08/23 [History] Calcium Carbonate [Calcium] 600 mg PO BID@1399,199909/08/23 [History] Cholecalciferol [Vitamin D3 (10 Mcg = 400 Iu)] 10 mcg PO BID@1399,199909/08/23 [History] Docusate Sodium 250 mg PO DAILY@79909/08/23 [History] Omeprazole [PriLOSEC] 40 mg PO DAILY@79909/08/23 [History] Zoledronic Acid [Zometa] 4 mg IV Q90D 09/08/23 [History] Magnesium 250 mg PO DAILY@79909/25/23 [History] Ondansetron Odt [Zofran ODT] 4 mg PO DAILY PRN 09/25/23 [History] Furosemide [Lasix] 40 mg PO BID@0800,1400 11/08/23 [History] HYDROcodone/APAP 10-325MG [[place] 10-325] 1 tab PO Q6H PRN 11/08/23 [History] Morphine Sulfate ER [Ms Contin] 30 mg PO BID PRN 11/08/23 [History] Rosuvastatin Calcium [Crestor] 40 mg PO DAILY@0800 11/08/23 [History] predniSONE [Deltasone] 40 mg PO DAILY 4 Days #8 tab 11/15/23 [Rx] Follow up Appointment(s)/Referral(s): [facility], [NON-STAFF] - 1 Week Nalini Palmer MD [Primary Care Provider] - 1-2 days Discharge Disposition: HOME SELF-CARE
[2023-11-15 12:20] VITALS: BMI 31.8
[2023-11-15 13:09] VITALS: BP 151/75; PULSE 96
[2023-11-16] MEDS ORDERED: predniSONE 20 MG TAB PO SCH (09:00)
== END 2023-11-15 14:44 | disposition home or self-care (01) | DRG 871 ==
LOC: EC 19:29 → 3SCARD 21:36 → 2SICU 11-09 00:25
PROVIDERS: ADMIT Hospitalist; ATTEND Hospitalist
PROC: 5A1945Z Respiratory Ventilation, 24-96 Consecutive Hours (ICD-10-PCS; principal; 2023-11-09)
PROC: 3E033XZ Introduction of Vasopressor into Peripheral Vein, Percutaneous Approach (ICD-10-PCS; principal; 2023-11-09)
PROC: 0BH17EZ Insertion of Endotracheal Airway into Trachea, Via Natural or Artificial Opening (ICD-10-PCS; principal; 2023-11-09)
PROC: 02H633Z Insertion of Infusion Device into Right Atrium, Percutaneous Approach (ICD-10-PCS; 2023-11-09)
DX: A41.9 Sepsis, unspecified organism (principal); G92.8 Other toxic encephalopathy; J18.9 Pneumonia, unspecified organism; J96.01 Acute respiratory failure with hypoxia; J96.02 Acute respiratory failure with hypercapnia; N17.0 Acute kidney failure with tubular necrosis; R65.21 Severe sepsis with septic shock; C78.7 Secondary malignant neoplasm of liver and intrahepatic bile duct; C79.51 Secondary malignant neoplasm of bone; I31.39 Other pericardial effusion (noninflammatory); I42.9 Cardiomyopathy, unspecified; J44.1 Chronic obstructive pulmonary disease with (acute) exacerbation; J90 Pleural effusion, not elsewhere classified; J98.11 Atelectasis; J44.0 Chronic obstructive pulmonary disease with (acute) lower respiratory infection; C34.32 Malignant neoplasm of lower lobe, left bronchus or lung; J45.21 Mild intermittent asthma with (acute) exacerbation; D64.9 Anemia, unspecified; I10 Essential (primary) hypertension; I35.0 Nonrheumatic aortic (valve) stenosis; M06.9 Rheumatoid arthritis, unspecified; E78.5 Hyperlipidemia, unspecified; G47.33 Obstructive sleep apnea (adult) (pediatric); K21.9 Gastro-esophageal reflux disease without esophagitis; M50.31 Other cervical disc degeneration, high cervical region; Z96.643 Presence of artificial hip joint, bilateral; Z79.899 Other long term (current) drug therapy; Z85.118 Personal history of other malignant neoplasm of bronchus and lung; Z87.891 Personal history of nicotine dependence; Z79.83 Long term (current) use of bisphosphonates; Z79.620 Long term (current) use of immunosuppressive biologic; Z79.52 Long term (current) use of systemic steroids
CPT/HCPCS: 36415; 51798; 70470; 71045; 71275; 76604; 80048; 80053; 81001; 82805; 83605; 83735; 83880; 84145; 84484; 85025; 85379; 85610; 85730; 87040; 87070; 87205; 87449; 93005; 93308; 94002; 94640; 94660; 94760; 96361; 96365; 96366; 96367; 99291

== ENCOUNTER 2024-01-05 14:38 | Emergency (ER) | payer MEDICARE ==
[2024-01-05 15:09] VITALS: TEMP 97.6
[2024-01-05] MEDS: SODIUM CHLORIDE 0.9% 1,000 ML IV STA ×2 (15:49→18:08)
--- NOTE | 2024-01-05 15:51 | ED ---
Dizziness HPI - General Chief Complaint: Dizziness Stated Complaint: Hypotension Time Seen by Provider: 01/05/24 15:45 Source: patient, RN notes reviewed, old records reviewed Mode of arrival: wheelchair Limitations: no limitations - History of Present Illness Initial Comments: This is a 78-year-old male to the ER for evaluation of low blood pressure low blood pressure weakness dizziness. No chest pain shortness of breath or abdominal pain. Diminished appetite not eating or drinking as well as he should. No other complaints MD Complaint: dizziness, lightheadedness, near syncope -: days(s) Timing: gradual onset, intermittent Description: lightheadedness History of Same: Yes History of Trauma: Yes Severity: mild Improves With: nothing, remaining still Worsens With: movement Associated Symptoms: denies other symptoms - Related Data Home Medications Medication Instructions Recorded Confirmed Pramipexole Di-HCl [Mirapex] 1.5 mg PO BID@0800,199901/03/14 01/07/24 allopurinoL [Zyloprim] 100 mg PO HS@199901/03/14 01/07/24 Albuterol Sulfate [Albuterol 1 - 2 puff INHALATION RT-Q4H PRN 04/15/23 01/07/24 Sulfate Hfa] Ergocalciferol (Vitamin D2) 1,250 mcg PO Q14D 04/15/23 01/07/24 [Drisdol (50,000 Iu)] Ferrous Sulfate [Iron (65 MG 975 mg PO DAILY@1400 04/15/23 01/07/24 Elemental)] Fluticasone Propion/Salmeterol 2 puff INHALATION RT-BID 04/15/23 01/07/24 [Advair 250-50 Diskus] Montelukast [Singulair] 10 mg PO HS@199904/15/23 01/07/24 Tamsulosin [Flomax] 0.4 mg PO DAILY@0800 04/15/23 01/07/24 carvediloL [Coreg] 3.125 mg PO DIRECTED 04/15/23 01/07/24 Albuterol Nebulized [Ventolin 2.5 mg INHALATION RT-BID 09/08/23 01/07/24 Nebulized] Benralizumab [Fasenra] 30 mg SQ Q56D 09/08/23 01/07/24 Calcium Carbonate [Calcium] 600 mg PO BID@1399,199909/08/23 01/07/24 Cholecalciferol [Vitamin D3 (10 10 mcg PO BID@1400,199909/08/23 01/07/24 Mcg = 400 Iu)] Docusate Sodium 250 mg PO BID@0800,1400 09/08/23 01/07/24 Omeprazole [PriLOSEC] 40 mg PO DAILY@0800 09/08/23 01/07/24 Zoledronic Acid [Zometa] 4 mg IV Q90D 09/08/23 01/07/24 Magnesium 250 mg PO DAILY@0800 09/25/23 01/07/24 Ondansetron Odt [Zofran ODT] 4 mg PO DAILY PRN 09/25/23 01/07/24 Furosemide [Lasix] 40 mg PO DIRECTED 11/08/23 01/07/24 HYDROcodone/APAP 10-325MG [[place] 1 tab PO Q6H PRN 11/08/23 01/07/24 10-325] Morphine Sulfate ER [Ms Contin] 30 mg PO BID 11/08/23 01/07/24 Rosuvastatin Calcium [Crestor] 40 mg PO DAILY@0800 11/08/23 01/07/24 Dabrafenib (Tafinlar) 50mg Cap 50 mg PO BID 01/07/24 01/07/24 Mirtazapine [Remeron] 15 mg PO HS@199901/07/24 01/07/24 Trametinib Dimethyl Sulfoxide 0.5 mg PO BID 01/07/24 01/07/24 [Mekinist] Allergies Allergy/AdvReac Type Severity Reaction Status Date / Time No Known Allergies Allergy Verified 01/06/24 20:00 Review of Systems ROS Statement: Those systems with pertinent positive or pertinent negative responses have been documented in the HPI. ROS Other: All systems not noted in ROS Statement are negative. Past Medical History Past Medical History: Asthma, Cancer, COPD, GERD/Reflux, Hyperlipidemia, Hypertension, Pneumonia, Prostate Disorder, Rheumatoid Arthritis (RA), Sleep Apnea/CPAP/BIPAP Additional Past Medical History / Comment(s): cardiomyopathy, anemia, lung cancer diagnosed 12/29/2022 (last chemo finished 08/21/23, last radiation 06/2023) History of Any Multi-Drug Resistant Organisms: None Reported Past Surgical History: Hernia Repair, Joint Replacement, Orthopedic Surgery Additional Past Surgical History / Comment(s): colonoscopy,EGD, Antonina hip replacments, antonina fx ankles, screws removed from rt ankle Past Anesthesia/Blood Transfusion Reactions: No Reported Reaction Past Psychological History: Depression Smoking Status: Former smoker Past Alcohol Use History: Occasional Past Drug Use History: None Reported General Exam Limitations: no limitations General appearance: alert, in no apparent distress Head exam: Present: atraumatic, normocephalic, normal inspection Eye exam: Present: normal appearance, PERRL, EOMI. Absent: scleral icterus, conjunctival injection, periorbital swelling ENT exam: Present: normal exam, mucous membranes moist Neck exam: Present: normal inspection. Absent: tenderness, meningismus, lymphadenopathy Respiratory exam: Present: normal lung sounds bilaterally. Absent: respiratory distress, wheezes, rales, rhonchi, stridor Cardiovascular Exam: Present: regular rate, normal rhythm, normal heart sounds. Absent: systolic murmur, diastolic murmur, rubs, gallop, clicks GI/Abdominal exam: Present: soft, normal bowel sounds. Absent: distended, tenderness, guarding, rebound, rigid Extremities exam: Present: normal inspection, full ROM, normal capillary refill. Absent: tenderness, pedal edema, joint swelling, calf tenderness Back exam: Present: normal inspection Neurological exam: Present: alert, oriented X3, CN II-XII intact Psychiatric exam: Present: normal affect, normal mood Skin exam: Present: warm, dry, intact, normal color. Absent: rash Course Vital Signs 01/05/24 01/05/24 01/05/24 15:05 15:54 15:57 Temperature 97.6 F Pulse Rate 83 Pulse Rate [ 80 84 Smoke Room Operator ] Respiratory 20 Rate Blood Pressure 80/49 Blood Pressure 102/56 [Right Arm Sitting] Blood Pressure [Right Arm Standing] Blood Pressure 107/60 [Right Arm Supine] O2 Sat by Pulse 99 Oximetry 01/05/24 01/05/24 01/05/24 16:00 18:16 19:51 Temperature Pulse Rate 69 61 Pulse Rate [ 90 Smoke Room Operator ] Respiratory 18 18 Rate Blood Pressure 105/64 130/74 Blood Pressure [Right Arm Sitting] Blood Pressure 87/50 [Right Arm Standing] Blood Pressure [Right Arm Supine] O2 Sat by Pulse 100 100 Oximetry - Reevaluation(s) Reevaluation #1: 01/05/24 16:28 Medical records reviewed Reevaluation #2: 01/05/24 16:28 Patient symptoms unchanged Reevaluation #3: 01/05/24 17:42 Patient informed of results and questions answered Reevaluation #4: Was pt. sent in by a medical professional or institution (DURAN Ansari, PVC MONITOR, urgent care, hospital, or detention...) When possible be specific @ -no Did you speak to anyone other than the patient for history (EMS, parent, family, police, friend...)? What history was obtained from this source @ -no Did you review nursing and triage notes (agree or disagree)? Why? @ -agree Are old charts reviewed (outside hosp., previous admission, EMS record, old EKG, old radiological studies, urgent care reports/EKG's, detention records)? Report findings @ -yes Differential Diagnosis (chest pain, altered mental status, abdominal pain women, abdominal pain men, vaginal bleeding, weakness, fever, dyspnea, syncope, headache, dizziness, GI bleed, back pain, seizure, CVA, palpatations, mental health, musculoskeletal)? @ -prior EKG interpreted by me (3pts min.). @ -yes X-rays interpreted by me (1pt min.). @ -no CT interpreted by me (1pt min.). @ -no U/S interpreted by me (1pt. min.). @ -no What testing was considered but not performed or refused? (CT, X-rays, U/S, labs)? Why? @ -none What meds were considered but not given or refused? Why? @ -none Did you discuss the management of the patient with other professionals (pro fessionals i.e. DURAN Ansari, PVC MONITOR, lab, RT, psych nurse, social work instructor, agriculture specialist, teacher, custody officer, case reviewer)? Give summary @ -no Was smoking cessation discussed for >3mins.? @ -no Was critical care preformed (if so, how long)? @ -no Were there social determinants of health that impacted care today? How? (Homelessness, low income, unemployed, alcoholism, drug addiction, transportation, low edu. Level, literacy, decrease access to med. care, intermediate, rehab)? @ -none Was there de-escalation of care discussed even if they declined (Discuss DNR or withdrawal of care, Hospice)? DNR status @ -no What co-morbidities impacted this encounter? (DM, HTN, Smoking, COPD, CAD, Cancer, CVA, ARF, Chemo, Hep., AIDS, mental health diagnosis, sleep apnea, morbid obesity)? @ -none Was patient admitted / discharged? Hospital course, mention meds given and route, prescriptions, significant lab abnormalities, going to OR and other pertinent info. @ - 78 male to ER for evaluation patient feels improved here with IV fluids and resuscitation, patient can be discharged home Discharge Undiagnosed new problem with uncertain prognosis? @ -no Drug Therapy requiring intensive monitoring for toxicity (Heparin, Nitro, Insulin, Cardizem)? @ -no Were any procedures done? @ -no Diagnosis/symptom? @ -Dizziness with orthostasis Acute, or Chronic, or Acute on Chronic? @ -Acute Uncomplicated (without systemic symptoms) or Complicated (systemic symptoms)? @ -Complicated Side effects of treatment? @ -no Exacerbation, Progression, or Severe Exacerbation? @ -exacerbation Poses a threat to life or bodily function? How? (Chest pain, USA, SD, pneumonia, PE, COPD, DKA, ARF, appy, cholecystitis, CVA, Diverticulitis, Homicidal, Suicidal, threat to staff... and all critical care pts) @ -yes extremes of age Reevaluation #5: Differential Dizziness: Benign paroxysmal positional Vertigo, Meniere's disease, otitis media, acoustic neuroma, vertebrobasilar insufficiency, cerebellar stroke, encephalitis, hypovolemic, arrhythmia, coronary artery syndrome, anemia, this is not meant to be an all-inclusive list Differential Weakness: Hypoglycemia, shock, sepsis, hyponatremia, anemia, infection, SD, ETOH, adverse medicine reaction, overdose, stroke, this is not meant to be an all-inclusive list. EKG Findings - EKG Comments: EKG Findings:: EKG is sinus 77 [place] 140 QRS 100 QTc 410 - EKG Results: EKG: interpreted by SYLVIA Medical Decision Making - Medical Decision Making 78 male to ER for evaluation patient feels improved here with IV fluids and resuscitation, patient can be discharged home - Lab Data Result diagrams: 01/05/24 15:56 01/05/24 15:56 Lab Results 01/05/24 01/05/24 01/05/24 Range/Units 15:56 15:56 15:56 WBC 4.5 (3.8-10.6) k/uL RBC 3.02 L (4.30-5.90) m/uL Hgb 9.5 L (13.0-17.5) gm/dL Hct 28.8 L (39.0-53.0) % MCV 95.6 (80.0-100.0) fL MCH 31.5 (25.0-35.0) pg MCHC 32.9 (31.0-37.0) g/dL RDW 16.7 H (11.5-15.5) % Plt Count 202 D (150-450) k/uL MPV 8.9 Neutrophils % 49 % Lymphocytes % 41 % Monocytes % 7 % Eosinophils % 0 % Basophils % 0 % Neutrophils # 2.2 (1.3-7.7) k/uL Lymphocytes # 1.8 (1.0-4.8) k/uL Monocytes # 0.3 (0-1.0) k/uL Eosinophils # 0.0 (0-0.7) k/uL Basophils # 0.0 (0-0.2) k/uL Hypochromasia Slight Anisocytosis Slight PT 11.3 (10.0-12.5) sec INR 1.0 (<1.2) APTT 28.7 (22.0-30.0) sec Sodium 135 L (137-145) mmol/L Potassium 3.1 L (3.5-5.1) mmol/L Chloride 95 L (98-107) mmol/L Carbon Dioxide 37 H (22-30) mmol/L Anion Gap 3 mmol/L BUN 23 H (9-20) mg/dL Creatinine 1.60 H (0.66-1.25) mg/dL Est GFR (CKD-EPI)AfAm 47 (>60 ml/min/1.73 sqM) Est GFR (CKD-EPI)NonAf 41 (>60 ml/min/1.73 sqM) Glucose 108 H (74-99) mg/dL Plasma Lactic Acid Ryan (0.7-2.0) mmol/L Calcium 8.4 (8.4-10.2) mg/dL Phosphorus 3.3 (2.5-4.5) mg/dL Magnesium 2.0 (1.6-2.3) mg/dL Total Bilirubin 0.6 (0.2-1.3) mg/dL AST 45 (17-59) U/L ALT 20 (4-49) U/L Alkaline Phosphatase 154 H (38-126) U/L Troponin I (0.000-0.034) ng/mL NT-Pro-B Natriuret Pep 939 pg/mL Total Protein 6.9 (6.3-8.2) g/dL Albumin 3.1 L (3.5-5.0) g/dL TSH 2.540 (0.465-4.680) mIU/L Urine Color Urine Appearance (Clear) Urine pH (5.0-8.0) Ur Specific [place] (1.001-1.035) Urine Protein (Negative) Urine Glucose (UA) (Negative) Urine Ketones (Negative) Urine Blood (Negative) Urine Nitrite (Negative) Urine Bilirubin (Negative) Urine Urobilinogen (<2.0) mg/dL Ur Leukocyte Esterase (Negative) 01/05/24 01/05/24 01/05/24 Range/Units 15:56 15:56 18:08 WBC (3.8-10.6) k/uL RBC (4.30-5.90) m/uL Hgb (13.0-17.5) gm/dL Hct (39.0-53.0) % MCV (80.0-100.0) fL MCH (25.0-35.0) pg MCHC (31.0-37.0) g/dL RDW (11.5-15.5) % Plt Count (150-450) k/uL MPV Neutrophils % % Lymphocytes % % Monocytes % % Eosinophils % % Basophils % % Neutrophils # (1.3-7.7) k/uL Lymphocytes # (1.0-4.8) k/uL Monocytes # (0-1.0) k/uL Eosinophils # (0-0.7) k/uL Basophils # (0-0.2) k/uL Hypochromasia Anisocytosis PT (10.0-12.5) sec INR (<1.2) APTT (22.0-30.0) sec Sodium (137-145) mmol/L Potassium (3.5-5.1) mmol/L Chloride (98-107) mmol/L Carbon Dioxide (22-30) mmol/L Anion Gap mmol/L BUN (9-20) mg/dL Creatinine (0.66-1.25) mg/dL Est GFR (CKD-EPI)AfAm (>60 ml/min/1.73 sqM) Est GFR (CKD-EPI)NonAf (>60 ml/min/1.73 sqM) Glucose (74-99) mg/dL Plasma Lactic Acid Ryan 1.0 (0.7-2.0) mmol/L Calcium (8.4-10.2) mg/dL Phosphorus (2.5-4.5) mg/dL Magnesium (1.6-2.3) mg/dL Total Bilirubin (0.2-1.3) mg/dL AST (17-59) U/L ALT (4-49) U/L Alkaline Phosphatase (38-126) U/L Troponin I <0.012 (0.000-0.034) ng/mL NT-Pro-B Natriuret Pep pg/mL Total Protein (6.3-8.2) g/dL Albumin (3.5-5.0) g/dL TSH (0.465-4.680) mIU/L Urine Color Colorless Urine Appearance Clear (Clear) Urine pH 6.5 (5.0-8.0) Ur Specific [place] 1.007 (1.001-1.035) Urine Protein Trace H (Negative) Urine Glucose (UA) Negative (Negative) Urine Ketones Negative (Negative) Urine Blood Negative (Negative) Urine Nitrite Negative (Negative) Urine Bilirubin Negative (Negative) Urine Urobilinogen <2.0 (<2.0) mg/dL Ur Leukocyte Esterase Negative (Negative) - EKG Data -: EKG Interpreted by Me Disposition Clinical Impression: Dehydration, Orthostatic hypotension Disposition: HOME SELF-CARE Condition: Good Instructions (If sedation given, give patient instructions): Hypotension (ED) Is patient prescribed a controlled substance at d/c from ED?: No Referrals: Nalini Palmer MD [Primary Care Provider] - 1-2 days Time of Disposition: 17:45
[2024-01-05 16:03] LABS: Anisocytosis Slight; Basophils % (A) 0 %; Eosinophils % (A) 0 %; HCT 28.8 % (39.0-53.0); HGB 9.5 gm/dL (13.0-17.5); Hypochromasia Slight; Lymphocytes # (A) 1.8 k/uL (1.0-4.8); Lymphocytes % (A) 41 %; MCH 31.5 pg (25.0-35.0); MCHC 32.9 g/dL (31.0-37.0); MCV 95.6 fL (80.0-100.0); Mean Platelet Volume 8.9; Monocytes # (A) 0.3 k/uL (0-1.0); Monocytes % (A) 7 %; Neutrophils # (A) 2.2 k/uL (1.3-7.7); Neutrophils % (A) 49 %; RBC 3.02 m/uL (4.30-5.90); RDW 16.7 % (11.5-15.5); WBC 4.5 k/uL (3.8-10.6)
[2024-01-05 16:11] LABS: Platelet Count 202 k/uL (150-450)
[2024-01-05 16:14] LABS: Partial Thromboplastin Time 28.7 sec (22.0-30.0); Prothrombin Time 11.3 sec (10.0-12.5)
[2024-01-05 16:21] LABS: ALT 20 U/L (4-49); AST 45 U/L (17-59); African American GFR (CKD) 47 (>60 ml/min/1.73 sqM); Albumin 3.1 g/dL (3.5-5.0); Alkaline Phosphatase 154 U/L (38-126); Anion Gap 3 mmol/L; Blood Urea Nitrogen 23 mg/dL (9-20); Calcium 8.4 mg/dL (8.4-10.2); Carbon Dioxide 37 mmol/L (22-30); Chloride 95 mmol/L (98-107); Glucose 108 mg/dL (74-99); Non-African American GFR(CKD) 41 (>60 ml/min/1.73 sqM); Phosphorus 3.3 mg/dL (2.5-4.5); Potassium 3.1 mmol/L (3.5-5.1); Sodium 135 mmol/L (137-145); Total Bilirubin 0.6 mg/dL (0.2-1.3); Total Protein 6.9 g/dL (6.3-8.2)
[2024-01-05 16:29] LABS: NT-Pro-B-Type Natriuretic Pept 939 pg/mL
[2024-01-05] MEDS: POTASSIUM BICARBONATE/CIT AC 20 MEQ TABLET.EFF PO ONE ×2 (18:11→18:33)
[2024-01-05 18:17] VITALS: RESP 18
[2024-01-05 18:25] LABS: Appearance,Urine Clear (Clear); Bilirubin,Urine Negative (Negative); Blood,Urine Negative (Negative); Color,Urine Colorless; Glucose,Urine (UA) Negative (Negative); Ketones,Urine Negative (Negative); Leukocyte Esterase,Urine Negative (Negative); Nitrite,Urine Negative (Negative); PH, Urine 6.5 (5.0-8.0); Protein,Urine Trace (Negative); Specific Gravity,Urine 1.007 (1.001-1.035); Urobilinogen,Urine <2.0 mg/dL (<2.0)
[2024-01-05 19:56] VITALS: BP 130/74; PULSE 61
== END 2024-01-05 19:56 | disposition home or self-care (01) ==
LOC: EC 14:38
DX: E86.0 Dehydration (principal); I95.1 Orthostatic hypotension; Z87.891 Personal history of nicotine dependence
CPT/HCPCS: 36415; 80053; 81003; 83605; 83735; 83880; 84100; 84443; 84484; 85025; 85610; 85730; 93005; 96360; 96361; 99284

== ENCOUNTER 2024-01-06 19:08 | Inpatient (IN) | payer MEDICARE ==
--- NOTE | 2024-01-06 19:43 | ED ---
Weakness HPI <Kathy Castle - Last Filed: 01/06/24 19:41> - General Source: RN notes reviewed, old records reviewed Limitations: altered mental status - History of Present Illness MD Complaint: generalized weakness -: days(s) Location: generalized Severity: moderate Severity scale (1-10): 4 Consistency: constant Improves with: none Worsens with: none Context: recent illness, history of similar Associated Symptoms: denies other symptoms <Kj Nixon - Last Filed: 01/07/24 17:10> - General Stated complaint: Hypertension Time Seen by Provider: 01/06/24 19:41 - History of Present Illness Initial comments: Quick [id number] male presenting for hypotension. States he was seen in ER for hypotension yesterday, was given IV fluids and discharged. Patient states he has been feeling dizzy today and generally weak. States he has active cancer in his lungs and his shoulder. Denies fevers, chills, cough, chest pain, abdominal pain. (Kathy Castle) This is a 78-year-old for evaluation of low blood pressure weakness and debility, dizziness lightheadedness especially with change of position (Kj Nixon) - Related Data Home Medications Medication Instructions Recorded Confirmed Pramipexole Di-HCl [Mirapex] 1.5 mg PO BID@799,199901/03/14 01/07/24 allopurinoL [Zyloprim] 100 mg PO HS@199901/03/14 01/07/24 Albuterol Sulfate [Albuterol 1 - 2 puff INHALATION RT-Q4H PRN 04/15/23 01/07/24 Sulfate Hfa] Ergocalciferol (Vitamin D2) 1,250 mcg PO Q14D 04/15/23 01/07/24 [Drisdol (50,000 Iu)] Ferrous Sulfate [Iron (65 MG 975 mg PO DAILY@1400 04/15/23 01/07/24 Elemental)] Fluticasone Propion/Salmeterol 2 puff INHALATION RT-BID 04/15/23 01/07/24 [Advair 250-50 Diskus] Montelukast [Singulair] 10 mg PO HS@199904/15/23 01/07/24 Tamsulosin [Flomax] 0.4 mg PO DAILY@0800 04/15/23 01/07/24 carvediloL [Coreg] 3.125 mg PO DIRECTED 04/15/23 01/07/24 Albuterol Nebulized [Ventolin 2.5 mg INHALATION RT-BID 09/08/23 01/07/24 Nebulized] Benralizumab [Fasenra] 30 mg SQ Q56D 09/08/23 01/07/24 Calcium Carbonate [Calcium] 600 mg PO BID@1400,199909/08/23 01/07/24 Cholecalciferol [Vitamin D3 (10 10 mcg PO BID@1400,199909/08/23 01/07/24 Mcg = 400 Iu)] Docusate Sodium 250 mg PO BID@0800,1400 09/08/23 01/07/24 Omeprazole [PriLOSEC] 40 mg PO DAILY@0809/08/23 01/07/24 Zoledronic Acid [Zometa] 4 mg IV Q90D 09/08/23 01/07/24 Magnesium 250 mg PO DAILY@0809/25/23 01/07/24 Ondansetron Odt [Zofran ODT] 4 mg PO DAILY PRN 09/25/23 01/07/24 Furosemide [Lasix] 40 mg PO DIRECTED 11/08/23 01/07/24 HYDROcodone/APAP 10-325MG [[place] 1 tab PO Q6H PRN 11/08/23 01/07/24 10-325] Morphine Sulfate ER [Ms Contin] 30 mg PO BID 11/08/23 01/07/24 Rosuvastatin Calcium [Crestor] 40 mg PO DAILY@79911/08/23 01/07/24 Dabrafenib (Tafinlar) 50mg Cap 50 mg PO BID 01/07/24 01/07/24 Mirtazapine [Remeron] 15 mg PO HS@199901/07/24 01/07/24 Trametinib Dimethyl Sulfoxide 0.5 mg PO BID 01/07/24 01/07/24 [Mekinist] Allergies Allergy/AdvReac Type Severity Reaction Status Date / Time No Known Allergies Allergy Verified 01/06/24 20:00 Review of Systems ROS Other: All systems not noted in ROS Statement are negative. <Kathy Castle - Last Filed: 01/06/24 19:41> ROS Other: All systems not noted in ROS Statement are negative. <Kj Nixon - Last Filed: 01/07/24 17:10> ROS Statement: Those systems with pertinent positive or pertinent negative responses have been documented in the HPI. Past Medical History Past Medical History: Asthma, Cancer, COPD, GERD/Reflux, Hyperlipidemia, Hypertension, Pneumonia, Prostate Disorder, Rheumatoid Arthritis (RA), Sleep Apnea/CPAP/BIPAP Additional Past Medical History / Comment(s): cardiomyopathy, anemia, lung cancer diagnosed 12/29/2022 (last chemo finished 08/21/23, last radiation 06/2023) History of Any Multi-Drug Resistant Organisms: None Reported Past Surgical History: Hernia Repair, Joint Replacement, Orthopedic Surgery Additional Past Surgical History / Comment(s): colonoscopy,EGD, Antonina hip replacments, antonina fx ankles, screws removed from rt ankle Past Anesthesia/Blood Transfusion Reactions: No Reported Reaction Past Psychological History: Depression Smoking Status: Former smoker Past Alcohol Use History: Occasional Past Drug Use History: None Reported <TinKathy - Last Filed: 01/06/24 19:41> General Exam <TinKathy - Last Filed: 01/06/24 19:41> General appearance: alert, in no apparent distress Head exam: Present: atraumatic, normocephalic, normal inspection Eye exam: Present: normal appearance, PERRL, EOMI. Absent: scleral icterus, conjunctival injection, periorbital swelling ENT exam: Present: normal exam, mucous membranes moist Neck exam: Present: normal inspection. Absent: tenderness, meningismus, lymphadenopathy Respiratory exam: Present: normal lung sounds bilaterally. Absent: respiratory distress, wheezes, rales, rhonchi, stridor Cardiovascular Exam: Present: regular rate, normal rhythm, normal heart sounds. Absent: systolic murmur, diastolic murmur, rubs, gallop, clicks GI/Abdominal exam: Present: soft, normal bowel sounds. Absent: distended, tenderness, guarding, rebound, rigid Extremities exam: Present: normal inspection, full ROM, normal capillary refill. Absent: tenderness, pedal edema, joint swelling, calf tenderness Back exam: Present: normal inspection Neurological exam: Present: alert, oriented X3, CN II-XII intact Psychiatric exam: Present: normal affect, normal mood Skin exam: Present: warm, dry, intact, normal color. Absent: rash <Kj Nixon - Last Filed: 01/07/24 17:10> - General Exam Comments Initial Comments: Visual Physical Exam General: Well-appearing, nontoxic, no acute distress. Head: Normocephalic, atraumatic Eyes: PERRLA, EOMI ENT: Airway patent Chest: Nonlabored breathing Skin: No visual rash, normal skin tone Neuro: Alert and oriented 3 Musculoskeletal: No gross abnormalities (Kathy Castle) Course <Kj Nixon - Last Filed: 01/07/24 17:10> Vital Signs 01/06/24 01/06/24 19:55 22:52 Temperature 98.2 F Pulse Rate 89 95 Respiratory 22 18 Rate Blood Pressure 105/56 115/62 O2 Sat by Pulse 98 100 Oximetry - Reevaluation(s) Reevaluation #1: 01/06/24 21:57 Medical records reviewed (Kj Nixon) Reevaluation #2: 01/06/24 21:57 Patient symptoms unchanged (Kj Nixon) Reevaluation #3: 01/06/24 21:57 Patient informed of results and questions answered (Kj Nixon) Reevaluation #4: Was pt. sent in by a medical professional or institution (, PA, BEAD WIRE TAPER, urgent care, hospital, or residential...) When possible be specific @ -no Did you speak to anyone other than the patient for history (EMS, parent, family, police, friend...)? What history was obtained from this source @ -no Did you review nursing and triage notes (agree or disagree)? Why? @ -agree Are old charts reviewed (outside hosp., previous admission, EMS record, old EKG, old radiological studies, urgent care reports/EKG's, residential records)? Report findings @ -yes Differential Diagnosis (chest pain, altered mental status, abdominal pain women, abdominal pain men, vaginal bleeding, weakness, fever, dyspnea, syncope, headache, dizziness, GI bleed, back pain, seizure, CVA, palpatations, mental health, musculoskeletal)? @ -prior EKG interpreted by me (3pts min.). @ -no X-rays interpreted by me (1pt min.). @ -yes negative for acute disease CT interpreted by me (1pt min.). @ -no U/S interpreted by me (1pt. min.). @ -no What testing was considered but not performed or refused? (CT, X-rays, U/S, labs)? Why? @ -none What meds were considered but not given or refused? Why? @ -none Did you discuss the management of the patient with other professionals (professionals i.e. DrSergei, PA, BEAD WIRE TAPER, lab, RT, psych nurse, social science professor, mid level project manager, teacher, combat information center officer, welfare case worker)? Give summary @ -no Was smoking cessation discussed for >3mins.? @ -no Was critical care preformed (if so, how long)? @ -no Were there social determinants of health that impacted care today? How? (Homelessness, low income, unemployed, alcoholism, drug addiction, transportation, low edu. Level, literacy, decrease access to med. care, penitentiary, rehab)? @ -none Was there de-escalation of care discussed even if they declined (Discuss DNR or withdrawal of care, Hospice)? DNR status @ -no What co-morbidities impacted this encounter? (DM, HTN, Smoking, COPD, CAD, Cancer, CVA, ARF, Chemo, Hep., AIDS, mental health diagnosis, sleep apnea, morbid obesity)? @ -none Was patient admitted / discharged? Hospital course, mention meds given and route, prescriptions, significant lab abnormalities, going to OR and other pertinent info. @ - 78 male will be admitted for weakness and low blood pressure, persistent weakness dehydration low blood pressure Admitted Undiagnosed new problem with uncertain prognosis? @ -no Drug Therapy requiring intensive monitoring for toxicity (Heparin, Nitro, Insulin, Cardizem)? @ -no Were any procedures done? @ -no Diagnosis/symptom? @ -Weakness dizziness low blood pressure Acute, or Chronic, or Acute on Chronic? @ -Acute Uncomplicated (without systemic symptoms) or Complicated (systemic symptoms)? @ -Complicated Side effects of treatment? @ -no Exacerbation, Progression, or Severe Exacerbation? @ -exacerbation Poses a threat to life or bodily function? How? (Chest pain, [place], MO, pneumonia, PE, COPD, DKA, ARF, appy, cholecystitis, CVA, Diverticulitis, Homicidal, Suicidal, threat to staff... and all critical care pts) @ -yes extremes of age (Kj Nixon) Reevaluation #5: 01/06/24 21:57 Differential Weakness: Hypoglycemia, shock, sepsis, hyponatremia, anemia, infection, MO, ETOH, adverse medicine reaction, overdose, stroke, this is not meant to be an all-inclusive list. (Kj Nixon) - Consultations Consultation #1: Spoke with [facility] who agrees to admit the patient (Kj Nixon) Medical Decision Making <Kathy Castle - Last Filed: 01/06/24 19:41> - Lab Data Result diagrams: 01/07/24 06:17 01/07/24 06:17 - Radiology Data Radiology results: report reviewed (Chest x-ray is negative for acute disease), image reviewed <Kj Nixon - Last Filed: 01/07/24 17:10> - Medical Decision Making I completed the quick note portion of this chart signed Kathy Castle PA-C (Kathy Castle) 78 male will be admitted for weakness and low blood pressure, persistent weakness dehydration low blood pressure (Kj Nixon) - Lab Data Lab Results 01/06/24 01/06/24 01/06/24 Range/Units 20:08 20:08 20:08 WBC 6.0 (3.8-10.6) k/uL RBC 3.10 L (4.30-5.90) m/uL Hgb 9.8 L (13.0-17.5) gm/dL Hct 29.8 L (39.0-53.0) % MCV 96.2 (80.0-100.0) fL MCH 31.5 (25.0-35.0) pg MCHC 32.8 (31.0-37.0) g/dL RDW 16.8 H (11.5-15.5) % Plt Count 192 (150-450) k/uL MPV 9.1 Neutrophils % 71 % Lymphocytes % 22 % Monocytes % 5 % Eosinophils % 1 % Basophils % 0 % Neutrophils # 4.3 (1.3-7.7) k/uL Lymphocytes # 1.3 (1.0-4.8) k/uL Monocytes # 0.3 (0-1.0) k/uL Eosinophils # 0.0 (0-0.7) k/uL Basophils # 0.0 (0-0.2) k/uL Hypochromasia Slight Anisocytosis Slight Sodium 139 (137-145) mmol/L Potassium 3.6 (3.5-5.1) mmol/L Chloride 98 (98-107) mmol/L Carbon Dioxide 34 H (22-30) mmol/L Anion Gap 7 mmol/L BUN 18 (9-20) mg/dL Creatinine 1.23 (0.66-1.25) mg/dL Est GFR (CKD-EPI)AfAm 65 (>60 ml/min/1.73 sqM) Est GFR (CKD-EPI)NonAf 56 (>60 ml/min/1.73 sqM) Glucose 111 H (74-99) mg/dL Plasma Lactic Acid Ryan 2.0 (0.7-2.0) mmol/L Calcium 8.3 L (8.4-10.2) mg/dL Magnesium 1.9 (1.6-2.3) mg/dL Total Bilirubin 0.5 (0.2-1.3) mg/dL AST 49 (17-59) U/L ALT 22 (4-49) U/L Alkaline Phosphatase 139 H (38-126) U/L Troponin I (0.000-0.034) ng/mL Total Protein 7.3 (6.3-8.2) g/dL Albumin 3.3 L (3.5-5.0) g/dL 01/06/24 Range/Units 20:08 WBC (3.8-10.6) k/uL RBC (4.30-5.90) m/uL Hgb (13.0-17.5) gm/dL Hct (39.0-53.0) % MCV (80.0-100.0) fL MCH (25.0-35.0) pg MCHC (31.0-37.0) g/dL RDW (11.5-15.5) % Plt Count (150-450) k/uL MPV Neutrophils % % Lymphocytes % % Monocytes % % Eosinophils % % Basophils % % Neutrophils # (1.3-7.7) k/uL Lymphocytes # (1.0-4.8) k/uL Monocytes # (0-1.0) k/uL Eosinophils # (0-0.7) k/uL Basophils # (0-0.2) k/uL Hypochromasia Anisocytosis Sodium (137-145) mmol/L Potassium (3.5-5.1) mmol/L Chloride (98-107) mmol/L Carbon Dioxide (22-30) mmol/L Anion Gap mmol/L BUN (9-20) mg/dL Creatinine (0.66-1.25) mg/dL Est GFR (CKD-EPI)AfAm (>60 ml/min/1.73 sqM) Est GFR (CKD-EPI)NonAf (>60 ml/min/1.73 sqM) Glucose (74-99) mg/dL Plasma Lactic Acid Ryan (0.7-2.0) mmol/L Calcium (8.4-10.2) mg/dL Magnesium (1.6-2.3) mg/dL Total Bilirubin (0.2-1.3) mg/dL AST (17-59) U/L ALT (4-49) U/L Alkaline Phosphatase (38-126) U/L Troponin I <0.012 (0.000-0.034) ng/mL Total Protein (6.3-8.2) g/dL Albumin (3.5-5.0) g/dL Disposition <Kathy Castle - Last Filed: 01/06/24 19:41> Is patient prescribed a controlled substance at d/c from ED?: No Time of Disposition: 22:00 <Kj Nixon - Last Filed: 01/07/24 17:10> Clinical Impression: Lung cancer, Hypotension, Weakness, Dehydration Disposition: ADMITTED IP TO THIS HOSP Condition: Fair
[2024-01-06 20:40] LABS: Anisocytosis Slight; Basophils % (A) 0 %; Eosinophils % (A) 1 %; HCT 29.8 % (39.0-53.0); HGB 9.8 gm/dL (13.0-17.5); Hypochromasia Slight; Lymphocytes # (A) 1.3 k/uL (1.0-4.8); Lymphocytes % (A) 22 %; MCH 31.5 pg (25.0-35.0); MCHC 32.8 g/dL (31.0-37.0); MCV 96.2 fL (80.0-100.0); Mean Platelet Volume 9.1; Monocytes # (A) 0.3 k/uL (0-1.0); Monocytes % (A) 5 %; Neutrophils # (A) 4.3 k/uL (1.3-7.7); Neutrophils % (A) 71 %; Platelet Count 192 k/uL (150-450); RDW 16.8 % (11.5-15.5)
[2024-01-06 21:07] LABS: ALT 22 U/L (4-49); AST 49 U/L (17-59); African American GFR (CKD) 65 (>60 ml/min/1.73 sqM); Albumin 3.3 g/dL (3.5-5.0); Alkaline Phosphatase 139 U/L (38-126); Anion Gap 7 mmol/L; Blood Urea Nitrogen 18 mg/dL (9-20); Calcium 8.3 mg/dL (8.4-10.2); Carbon Dioxide 34 mmol/L (22-30); Chloride 98 mmol/L (98-107); Glucose 111 mg/dL (74-99); Magnesium 1.9 mg/dL (1.6-2.3); Non-African American GFR(CKD) 56 (>60 ml/min/1.73 sqM); Potassium 3.6 mmol/L (3.5-5.1); Sodium 139 mmol/L (137-145); Total Bilirubin 0.5 mg/dL (0.2-1.3); Total Protein 7.3 g/dL (6.3-8.2)
--- NOTE | 2024-01-06 21:30 | XR ---
EXAMINATION TYPE: XR chest 2V DATE OF EXAM: 01/06/2024 9:06 PM COMPARISON: Chest radiographs from 11/11/2023 CLINICAL INDICATION: Male, 78 years old with history of Weakness; TECHNIQUE: XR chest 2V Frontal and lateral views of the chest. FINDINGS: Lungs/Pleura: Blunting of the left costophrenic angle. There is no evidence of right pleural effusion , focal consolidation, or pneumothorax. Pulmonary vascularity: Unremarkable. Heart/mediastinum: Cardiomediastinal silhouette is unremarkable. Musculoskeletal: No acute osseous pathology. Other findings: None IMPRESSION: No acute cardiopulmonary disease/process. Trace left pleural effusion. [facility], , 01/06/2024 9:28 PM
[2024-01-06] MEDS ORDERED: NALOXONE 0.4 MG/ML 1 ML VIAL IV PRN (21:54)
[2024-01-06] MEDS ORDERED: MORPHINE SULFATE 4 MG/ML SYRINGE IV PRN (21:54)
[2024-01-06] MEDS ORDERED: ONDANSETRON 4 MG/2 ML VIAL IVP PRN (21:54)
[2024-01-06] MEDS: SODIUM CHLORIDE 0.9% 1,000 ML IV SCH (22:45)
[2024-01-07 06:52] LABS: Anisocytosis Slight; Basophils % (A) 0 %; Eosinophils % (A) 0 %; HCT 25.8 % (39.0-53.0); Hypochromasia Slight; Lymphocytes # (A) 1.4 k/uL (1.0-4.8); Lymphocytes % (A) 21 %; MCH 31.2 pg (25.0-35.0); MCHC 31.9 g/dL (31.0-37.0); Macrocytosis Slight; Mean Platelet Volume 9.1; Monocytes # (A) 0.3 k/uL (0-1.0); Monocytes % (A) 5 %; Neutrophils # (A) 4.7 k/uL (1.3-7.7); Neutrophils % (A) 72 %; Platelet Count 155 k/uL (150-450); RBC 2.63 m/uL (4.30-5.90); RDW 16.6 % (11.5-15.5); WBC 6.5 k/uL (3.8-10.6)
[2024-01-07 06:54] LABS: HGB 8.2 gm/dL (13.0-17.5)
[2024-01-07 06:57] LABS: ALT 18 U/L (4-49); AST 37 U/L (17-59); African American GFR (CKD) 78 (>60 ml/min/1.73 sqM); Albumin 2.5 g/dL (3.5-5.0); Alkaline Phosphatase 120 U/L (38-126); Anion Gap -1 mmol/L; Blood Urea Nitrogen 14 mg/dL (9-20); Calcium 7.5 mg/dL (8.4-10.2); Carbon Dioxide 36 mmol/L (22-30); Chloride 101 mmol/L (98-107); Glucose 105 mg/dL (74-99); Magnesium 1.9 mg/dL (1.6-2.3); Non-African American GFR(CKD) 68 (>60 ml/min/1.73 sqM); Phosphorus 3.4 mg/dL (2.5-4.5); Potassium 3.4 mmol/L (3.5-5.1); Sodium 136 mmol/L (137-145); Total Bilirubin 0.6 mg/dL (0.2-1.3); Total Protein 5.9 g/dL (6.3-8.2)
[2024-01-07] MEDS: PANTOPRAZOLE 40 MG/10 ML VIAL IV SCH (08:32)
[2024-01-07] MEDS ORDERED: HYDROcodone/APAP 10-325MG 1 EACH TAB PO PRN (13:01)
[2024-01-07] MEDS ORDERED: ERGOCALCIFEROL 1,250 MCG (50,000 IU) CAPSULE PO SCH (13:15)
[2024-01-07] MEDS: CALCIUM CARBONATE 500 MG CHEWABLE PO SCH (14:14)
[2024-01-07] MEDS: CHOLECALCIFEROL 10 MCG (400 IU) TABLET PO SCH (14:14)
[2024-01-07] MEDS: DOCUSATE 100 MG CAP PO SCH (14:14)
--- NOTE | 2024-01-07 15:42 | P.HPIM ---
History of Present Illness H&P Date: 01/07/24 History of present illness: 78-year-old male patient with past medical history significant for lung cancer diagnosed in 2022 status post chemo and radiation, history of cardiomyopathy, COPD, asthma, hypertension, hyperlipidemia, sleep apnea who presented to ER with a complaint of dizziness and low blood pressure. Patient was seen in the ER for hypertension yesterday, was given IV fluids and discharged home, patient Feeling Dizzy, Weak with Poor Intake for the past 2 to 3 Days, and Came Back to the ED Again. Patient Denied Any Fever, Chills, Complained of Chronic Cough without Any Change, Denied Any Nausea Vomiting Diarrhea Abdominal Pain, Constipation, Weakness or Numbness of the Extremities, Dysuria Urgency or Frequency. In the ED Patient Was Afebrile, Pulse Rate 89, Respiratory Rate 22, Blood Pressure 105/56, Saturating 98% to 100% on 3 L. WBC 6.0, hemoglobin 9.8, platelet 122. CMP was unremarkable except mildly elevated alkaline phosphatase 139 low albumin 3.3. CO2 34. Chest x-ray was negative for acute process. REVIEW OF SYSTEMS: CONSTITUTIONAL: Fatigue, dizziness. Poor appetite. HEENT: No recent visual problems or hearing problems. Denied any sore throat. CARDIOVASCULAR: No chest pain, orthopnea, PND, no palpitations, no syncope. PULMONARY: No shortness of breath, no cough, no hemoptysis. GASTROINTESTINAL: No diarrhea, no nausea, no vomiting, no abdominal pain. NEUROLOGICAL: No headaches, no weakness, no numbness. HEMATOLOGICAL: Denies any bleeding or petechiae. GENITOURINARY: Denies any burning micturition, frequency, or urgency. MUSCULOSKELETAL/RHEUMATOLOGICAL: Denies any joint pain, swelling, or any muscle pain. ENDOCRINE: Denies any polyuria or polydipsia. The rest of the 14-point review of systems is negative. PHYSICAL EXAMINATION: GENERAL: The patient is A&O x3, NAD HEENT: EOMI, Sclerae anicteric, dry mucous membranes. Neck: Supple, Non tender, No JVD PULMONARY: Equal breath souds B/L, No wheezing, No crackles. CARDIOVASCULAR: S1, S2 present. No murmurs, rubs, or gallops. ABDOMEN: Soft, nontender, nondistended, normoactive bowel sounds. No guarding or rebound tenderness. MUSCULOSKELETAL: No edema, No cyanosis. No clubbing. Normal ROM. Intact peripheral pulses. EXTREMITIES: No cyanosis, clubbing, or pedal edema. NEUROLOGICAL: CN 2-12 grossly intact. No FND Assessment and plan: Dizziness: Hypotension: Dehydration: History of lung cancer: BPH: Hypertension Hyperlipidemia Severe PCM: Plan: Monitor vitals, telemetry Fall precautions IV fluids Hold antihypertensives Nutrition consult/supplements Cardiology consult Oncology consult DVT prophylaxis SCD Monitor vital signs and labs Labs and medication were reviewed. Continue same treatment. Further recommendations as per clinical course of the patient Dictation was produced using [employer] dictation software. please excuse any grammatical, word or spelling errors. Past Medical History Past Medical History: Asthma, Cancer, COPD, GERD/Reflux, Hyperlipidemia, Hypertension, Pneumonia, Prostate Disorder, Rheumatoid Arthritis (RA), Sleep Apnea/CPAP/BIPAP Additional Past Medical History / Comment(s): cardiomyopathy, anemia, lung cancer diagnosed 12/29/2022 (last chemo finished 08/21/23, last radiation 06/2023) History of Any Multi-Drug Resistant Organisms: None Reported Past Surgical History: Hernia Repair, Joint Replacement, Orthopedic Surgery Additional Past Surgical History / Comment(s): colonoscopy,EGD, Scotty hip replacme nts, scotty fx ankles, screws removed from rt ankle Past Anesthesia/Blood Transfusion Reactions: No Reported Reaction Past Psychological History: Depression Smoking Status: Former smoker Past Alcohol Use History: Occasional Past Drug Use History: None Reported Medications and Allergies Home Medications Medication Instructions Recorded Confirmed Type Pramipexole Di-HCl [Mirapex] 1.5 mg PO BID@0800,199901/03/14 01/07/24 History allopurinoL [Zyloprim] 100 mg PO HS@199901/03/14 01/07/24 History Albuterol Sulfate [Albuterol 1 - 2 puff INHALATION RT-Q4H PRN 04/15/23 01/07/24 History Sulfate Hfa] Ergocalciferol (Vitamin D2) 1,250 mcg PO Q14D 04/15/23 01/07/24 History [Drisdol (50,000 Iu)] Ferrous Sulfate [Iron (65 MG 975 mg PO DAILY@1400 04/15/23 01/07/24 History Elemental)] Fluticasone Propion/Salmeterol 2 puff INHALATION RT-BID 04/15/23 01/07/24 History [Advair 250-50 Diskus] Montelukast [Singulair] 10 mg PO HS@199904/15/23 01/07/24 History Tamsulosin [Flomax] 0.4 mg PO DAILY@0800 04/15/23 01/07/24 History carvediloL [Coreg] 3.125 mg PO DIRECTED 04/15/23 01/07/24 History Albuterol Nebulized [Ventolin 2.5 mg INHALATION RT-BID 09/08/23 01/07/24 History Nebulized] Benralizumab [Fasenra] 30 mg SQ Q56D 09/08/23 01/07/24 History Calcium Carbonate [Calcium] 600 mg PO BID@1400,199909/08/23 01/07/24 History Cholecalciferol [Vitamin D3 (10 10 mcg PO BID@1400,199909/08/23 01/07/24 History Mcg = 400 Iu)] Docusate Sodium 250 mg PO BID@0800,1400 09/08/23 01/07/24 History Omeprazole [PriLOSEC] 40 mg PO DAILY@0800 09/08/23 01/07/24 History Zoledronic Acid [Zometa] 4 mg IV Q90D 09/08/23 01/07/24 History Magnesium 250 mg PO DAILY@0800 09/25/23 01/07/24 History Ondansetron Odt [Zofran ODT] 4 mg PO DAILY PRN 09/25/23 01/07/24 History Furosemide [Lasix] 40 mg PO DIRECTED 11/08/23 01/07/24 History HYDROcodone/APAP 10-325MG [[place] 1 tab PO Q6H PRN 11/08/23 01/07/24 History 10-325] Morphine Sulfate ER [Ms Contin] 30 mg PO BID 11/08/23 01/07/24 History Rosuvastatin Calcium [Crestor] 40 mg PO DAILY@0800 11/08/23 01/07/24 History Dabrafenib (Tafinlar) 50mg Cap 50 mg PO BID 01/07/24 01/07/24 History Mirtazapine [Remeron] 15 mg PO HS@199901/07/24 01/07/24 History Trametinib Dimethyl Sulfoxide 0.5 mg PO BID 01/07/24 01/07/24 History [Mekinist] Allergies Allergy/AdvReac Type Severity Reaction Status Date / Time No Known Allergies Allergy Verified 01/06/24 20:00 Physical Exam Vitals: Vital Signs Temp Pulse Pulse Resp BP BP Pulse Ox 01/07/24 07:00 98.6 F 90 16 111/62 100 01/07/24 02:00 97.8 F 102 H 17 100/51 97 01/06/24 23:45 98.4 F 96 17 104/74 100 01/06/24 22:52 95 18 115/62 100 01/06/24 19:55 98.2 F 89 22 105/56 98 Intake and Output 01/07/24 01/07/24 01/07/24 06:59 14:59 22:59 Intake Total 236 Output Total 250 Balance -250 236 Intake: Oral 236 Output: Urine 250 Other: Voiding Method Urinal Urinal Results CBC & Chem 7: 01/07/24 06:17 01/07/24 06:17 Labs: Abnormal Lab Results - Last 24 Hours (Table) 01/06/24 01/06/24 01/07/24 Range/Units 20:08 20:08 06:17 RBC 3.10 L 2.63 L (4.30-5.90) m/uL Hgb 9.8 L 8.2 L D (13.0-17.5) gm/dL Hct 29.8 L 25.8 L (39.0-53.0) % RDW 16.8 H 16.6 H (11.5-15.5) % Sodium (137-145) mmol/L Potassium (3.5-5.1) mmol/L Carbon Dioxide 34 H (22-30) mmol/L Glucose 111 H (74-99) mg/dL Calcium 8.3 L (8.4-10.2) mg/dL Alkaline Phosphatase 139 H (38-126) U/L Total Protein (6.3-8.2) g/dL Albumin 3.3 L (3.5-5.0) g/dL 01/07/24 Range/Units 06:17 RBC (4.30-5.90) m/uL Hgb (13.0-17.5) gm/dL Hct (39.0-53.0) % RDW (11.5-15.5) % Sodium 136 L (137-145) mmol/L Potassium 3.4 L (3.5-5.1) mmol/L Carbon Dioxide 36 H (22-30) mmol/L Glucose 105 H (74-99) mg/dL Calcium 7.5 L (8.4-10.2) mg/dL Alkaline Phosphatase (38-126) U/L Total Protein 5.9 L (6.3-8.2) g/dL Albumin 2.5 L (3.5-5.0) g/dL
[2024-01-07 18:27] LABS: Appearance,Urine Clear (Clear); Bilirubin,Urine Negative (Negative); Blood,Urine Negative (Negative); Color,Urine Light Yellow; Glucose,Urine (UA) Negative (Negative); Ketones,Urine Negative (Negative); Leukocyte Esterase,Urine Negative (Negative); Mucus,Urine Rare /hpf; Nitrite,Urine Negative (Negative); PH, Urine 7.5 (5.0-8.0); Protein,Urine 1+ (Negative); RBC,Urine <1 /hpf (0-5); Specific Gravity,Urine 1.014 (1.001-1.035); Urobilinogen,Urine <2.0 mg/dL (<2.0); WBC,Urine <1 /hpf (0-5)
--- NOTE | 2024-01-07 18:44 | P.CONS ---
History of Present Illness - Reason for Consult Consult date: 01/07/24 hx lung cancer Requesting physician: Kj Nixon - Chief Complaint hypotension, dizziness, weakness - History of Present Illness Mr. Babcock is a 78-year-old gentleman with a past medical history significant for COPD and lung cancer. He is a patient of Dr. Monica Leigh. He was initially seen in consultation at [facility] on 01/07/2023, presented with persistent left-sided chest discomfort radiating to the left shoulder, which had been occurring over 2 months prior to his presentation. CTA 01/07/2023 was negative for PE, but did reveal enlarged left lower lung mass measuring 4.2 x 2.1 cm extending towards the pulmonary hilum. In addition, there was an erosive sternal mass measuring at least 3.4 x 2.5 cm along with possible lytic lesion at T1 vertebrae measuring up to 1.[address] of the head without contrast revealed no acute intracranial process. Biopsy of the sternal mass on 01/10/2023 revealed morphologic features consistent with both adenocarcinoma and neuroendocrine tumor. IHC was positive for TTF-1, synaptophysin, Napsin, and focal positivity for CD56 and high Ki-67 proliferative index. P40 and p63 were both negative. Following discharge, PET/CT 01/21/2023 at [facility] revealed mild FDG avidity in the lower lobe medial left lung nodule that was above the average liver SUV. There is increased FDG avidity in the sternal lesion as well as bone lesion in the posterior lateral left scapula. 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 Following his initial visit, there was a concern for potential of small cell lung cancer. He underwent 5 fractions of palliative radiation to the sternum and left scapula receiving a total of 35 Gy completed on 02/14/2023. He initiated cycle 1 of carboplatin/etoposide/Tecentriq due to this concern on 02/16/2023 through 02/18/2023. NGS from biopsy and circulating tumor DNA was significant for BRAF V600E mutation with no TP53 or RB1 mutations typically seen in small cell lung cancer. PD-L1 expression was less than 1%. Upon additional review of his pathology in light of his molecular profiling, it appears adenocarcinoma is the dominant histology with the synaptophysin being a component of adenocarcinoma with negative chromogranin. Moreover, molecular profiling did not reveal any typical mutations seen in small cell carcinoma. Treatment was switched to carboplatin/Alimta with cycle 1 on 03/17/2023 followed by cycle 2 on 04/07/2023 given with GCSF. He required hospitalization for progressive fatigue with nausea and diarrhea prompting hospitalizations. At his clinic visit on 04/14 it was decided to hold on administering any further chemotherapy to allow him to recover from the 2 cycles of carboplatin/Alimta. CT CAP 06/14/23 showed stable disease. After he recovered his treatment was changed to targeted therapy with dabrafenib/trametinib in May 2023. MRI of the neck and brain ordered for new neck pain performed on 05/27/2023 and 05/31/2023 revealed no evidence of intracranial metastases with new T1 vertebral body lesion along with degenerative changes from C2-C6. PET/CT 06/24/2023 revealed FDG uptake in the known areas of disease along with T1 vertebral body. He received 24 Moore in 3 fractions of palliative radiation therapy to the T1 vertebral body completed on 07/22/2023. Mid July 2023, he did have admission to [facility] due to influenza A and B, he was treated with IV antibiotics and Tamiflu with progressive improvement. He was seen then seen in the office c/o progressive fatigue, weakness, and intermittent confusion. He had Chest x-ray to rule out superimposed bacterial pneumonia given his recent influenza A and B, started on abx, braftovi/mektovi was held. He was then readmitted to the hospital on 09/07/23 for progressive SOB, and weakness. CTA no pl eff or PE. Small pericardial effusion. Brain CT w/w/o neg for acute process. Treatment f/u PET/CT was obtained on 09/22/2023, which showed overall stable disease; of note patient has been off treatment for most of the last 1 month prior to PET scan due to repeat admissions/infections. Braftovi was dose reduced to 150 mg daily, with better toleration of treatment. Due to anemia and persisting fatigue patient was transfused 1 unit PRBCs on 10/27/23. He continues Braftovi at 150 mg daily and Mektovi at 30 mg twice daily. Unfortunately patient had multiple subsequent hospitalizations. At his most recent f/u last month braftovi and mektovi were stopped due to intolerance. He has since been started on dabrafenib/trametinib with dabrafenib 50 mg twice daily along with trametinib 1 mg daily. He reports that he is tolerating this regimen better. But still reports significant fatgue and diminished appetite. He is tolerating oral intake and denies n/v/d. He presented to the ER For hypotension, dizziness and weakness. Of note patient was seen yesterday in the ER for hypotension and was given IV fluids and was discharged home. Patient reports prior to arrival he was having blood pressures systolically in the 60-80s. He had contacted his cardiology office with instructed him to hold his blood pressure medications, however patient states he had already taken his morning doses of carvedilol and Lasix. Patient reports shortness of breath is at baseline with no acute changes. Denies cough, nausea vomiting diarrhea, urinary frequency and dysuria but does endorse urinary hesitancy. UA pending. Denies fever and chills. Chest x-ray showed no acute cardiopulmonary processes. With trace left pleural effusion. CBC showing WBC 6.0, hemoglobin 9.8, platelets 192,000. Creatinine 1.05, GFR 68. LFTs and bilirubin WNL. BP now stable, patient afebrile. Review of Systems 10 point ROS is negative except as stated in the HPI Past Medical History Past Medical History: Asthma, Cancer, COPD, GERD/Reflux, Hyperlipidemia, Hypertension, Pneumonia, Prostate Disorder, Rheumatoid Arthritis (RA), Sleep Apnea/CPAP/BIPAP Additional Past Medical History / Comment(s): cardiomyopathy, anemia, lung cancer diagnosed 12/29/2022 (last chemo finished 08/21/23, last radiation 06/2023) History of Any Multi-Drug Resistant Organisms: None Reported Past Surgical History: Hernia Repair, Joint Replacement, Orthopedic Surgery Additional Past Surgical History / Comment(s): colonoscopy,EGD, Antonina hip replacments, antonina fx ankles, screws removed from rt ankle Past Anesthesia/Blood Transfusion Reactions: No Reported Reaction Past Psychological History: Depression Smoking Status: Former smoker Past Alcohol Use History: Occasional Past Drug Use History: None Reported Medications and Allergies Home Medications Medication Instructions Recorded Confirmed Type Pramipexole Di-HCl [Mirapex] 1.5 mg PO BID@0800,199901/03/14 01/07/24 History allopurinoL [Zyloprim] 100 mg PO HS@199901/03/14 01/07/24 History Albuterol Sulfate [Albuterol 1 - 2 puff INHALATION RT-Q4H PRN 04/15/23 01/07/24 History Sulfate Hfa] Ergocalciferol (Vitamin D2) 1,250 mcg PO Q14D 04/15/23 01/07/24 History [Drisdol (50,000 Iu)] Ferrous Sulfate [Iron (65 MG 975 mg PO DAILY@1400 04/15/23 01/07/24 History Elemental)] Fluticasone Propion/Salmeterol 2 puff INHALATION RT-BID 04/15/23 01/07/24 History [Advair 250-50 Diskus] Montelukast [Singulair] 10 mg PO HS@199904/15/23 01/07/24 History Tamsulosin [Flomax] 0.4 mg PO DAILY@0800 04/15/23 01/07/24 History carvediloL [Coreg] 3.125 mg PO DIRECTED 04/15/23 01/07/24 History Albuterol Nebulized [Ventolin 2.5 mg INHALATION RT-BID 09/08/23 01/07/24 History Nebulized] Benralizumab [Fasenra] 30 mg SQ Q56D 09/08/23 01/07/24 History Calcium Carbonate [Calcium] 600 mg PO BID@1400,199909/08/23 01/07/24 History Cholecalciferol [Vitamin D3 (10 10 mcg PO BID@1400,199909/08/23 01/07/24 History Mcg = 400 Iu)] Docusate Sodium 250 mg PO BID@0800,1400 09/08/23 01/07/24 History Omeprazole [PriLOSEC] 40 mg PO DAILY@79909/08/23 01/07/24 History Zoledronic Acid [Zometa] 4 mg IV Q90D 09/08/23 01/07/24 History Magnesium 250 mg PO DAILY@79909/25/23 01/07/24 History Ondansetron Odt [Zofran ODT] 4 mg PO DAILY PRN 09/25/23 01/07/24 History Furosemide [Lasix] 40 mg PO DIRECTED 11/08/23 01/07/24 History HYDROcodone/APAP 10-325MG [[place] 1 tab PO Q6H PRN 11/08/23 01/07/24 History 10-325] Morphine Sulfate ER [Ms Contin] 30 mg PO BID 11/08/23 01/07/24 History Rosuvastatin Calcium [Crestor] 40 mg PO DAILY@0800 11/08/23 01/07/24 History Dabrafenib (Tafinlar) 50mg Cap 50 mg PO BID 01/07/24 01/07/24 History Mirtazapine [Remeron] 15 mg PO HS@199901/07/24 01/07/24 History Trametinib Dimethyl Sulfoxide 0.5 mg PO BID 01/07/24 01/07/24 History [Mekinist] Allergies Allergy/AdvReac Type Severity Reaction Status Date / Time No Known Allergies Allergy Verified 01/06/24 20:00 Physical Exam Vitals: Vital Signs Temp Pulse Pulse Resp BP BP Pulse Ox 01/07/24 07:00 98.6 F 90 16 111/62 100 01/07/24 02:00 97.8 F 102 H 17 100/51 97 01/06/24 23:45 98.4 F 96 17 104/74 100 01/06/24 22:52 95 18 115/62 100 01/06/24 19:55 98.2 F 89 22 105/56 98 Intake and Output 01/06/24 01/07/24 01/07/24 22:59 06:59 14:59 Intake Total 118 Output Total 250 Balance -250 118 Intake: Oral 118 Output: Urine 250 Other: Voiding Method Urinal Urinal Weight 77.111 kg - Constitutional General appearance: average body habitus, no acute distress - EENT Eyes: anicteric sclerae, EOMI ENT: hearing grossly normal - Respiratory breathing is even and unlabored - Cardiovascular skin warm and dry - Gastrointestinal General gastrointestinal: soft, no tenderness - Integumentary Integumentary: no cyanotic, no jaundiced - Musculoskeletal Musculoskeletal: generalized weakness - Psychiatric Psychiatric: A&O x's 3 Results CBC & Chem 7: 01/07/24 06:17 01/07/24 06:17 Labs: Abnormal Lab Results - Last 24 Hours (Table) 01/06/24 01/06/24 01/07/24 Range/Units 20:08 20:08 06:17 RBC 3.10 L 2.63 L (4.30-5.90) m/uL Hgb 9.8 L 8.2 L D (13.0-17.5) gm/dL Hct 29.8 L 25.8 L (39.0-53.0) % RDW 16.8 H 16.6 H (11.5-15.5) % Sodium (137-145) mmol/L Potassium (3.5-5.1) mmol/L Carbon Dioxide 34 H (22-30) mmol/L Glucose 111 H (74-99) mg/dL Calcium 8.3 L (8.4-10.2) mg/dL Alkaline Phosphatase 139 H (38-126) U/L Total Protein (6.3-8.2) g/dL Albumin 3.3 L (3.5-5.0) g/dL 01/07/24 Range/Units 06:17 RBC (4.30-5.90) m/uL Hgb (13.0-17.5) gm/dL Hct (39.0-53.0) % RDW (11.5-15.5) % Sodium 136 L (137-145) mmol/L Potassium 3.4 L (3.5-5.1) mmol/L Carbon Dioxide 36 H (22-30) mmol/L Glucose 105 H (74-99) mg/dL Calcium 7.5 L (8.4-10.2) mg/dL Alkaline Phosphatase (38-126) U/L Total Protein 5.9 L (6.3-8.2) g/dL Albumin 2.5 L (3.5-5.0) g/dL Chest x-ray: report reviewed Assessment and Plan (1) Hypotension Current Visit: Yes Status: Acute Priority: High Code(s): I95.9 - HYPOTENSION, UNSPECIFIED SNOMED Code(s): 19738726 (2) Lung cancer Current Visit: Yes Status: Acute Priority: High Code(s): C34.90 - MALIGNANT NEOPLASM OF UNSP PART OF UNSP BRONCHUS OR LUNG SNOMED Code(s): 811914976 (3) Weakness Current Visit: Yes Status: Acute Priority: High Code(s): R53.1 - WEAKNESS SNOMED Code(s): 42829069 Plan: Hypotension, dizziness, weakness: Presented to the ER For hypotension, dizziness and weakness. Of note patient was seen in the ER for hypotension and was given IV fluids and was discharged home. Patient reports prior to arrival he was having blood pressures systolically in the 60-80s. He had contacted his cardiology office with instructed him to hold his blood pressure medications, however patient states he had already taken his morning doses of carvedilol and Lasix. Pt denies n/v/d, and is tolerating oral intake/fluids, but does report diminished appetite. -Antihypertensives held -Continue IV hydration -Hypotension resolved -Cardiology consulted to evaluate cardiac medications/dosing NSCLC: -Oncology history and plan as dictated in HPI -Treatment switched to dabrafenib/trametinib 1 month ago. Pt reports he has been tolerating regimen better than previous regimen -Hold dabrafenib/trametinib while inpt -Clinic f/u scheduled for 01/[address] Gi Leigh
[2024-01-07] MEDS: MONTELUKAST 10 MG TAB PO SCH (20:05)
[2024-01-07] MEDS: MORPHINE SULFATE ER 30 MG TABLET PO SCH (20:05)
[2024-01-07] MEDS: MIRTAZAPINE 15 MG TAB PO SCH (20:05)
[2024-01-07] MEDS: allopurinoL 100 MG TAB PO SCH (20:05)
[2024-01-07] MEDS: PRAMIPEXOLE 0.5 MG TAB PO SCH (20:05)
[2024-01-07] MEDS: ALBUTEROL NEBULIZED 2.5 MG/3 ML INHALATION SCH (20:24)
[2024-01-07] MEDS: SYMBICORT 80-4.5 MCG INHALER INHALATION SCH (20:26)
--- NOTE | 2024-01-08 07:19 | P.CRDCN ---
History of Present Illness Consult date: 01/07/24 History of present illness: HISTORY OF PRESENTING ILLNESS 78-year-old male with past medical history of lung cancer diagnosed in 2022 status postchemotherapy and radiation therapy. Currently he is on chemotherapy with Darbafenib and trametinib for last 1 month. He also has history of valvular heart disease with moderate aortic stenosis, moderate mitral regurgitation. He presented to the hospital because of concerns of hypotension, dizziness, failure to thrive. Cardiology is consulted for evaluation of hypotension. Patient reports that at home his systolic blood pressures around 80 mmHg, on admission to the hospital where it was 104/74. At the time of evaluation 01/07/2024, 6 PM, patient was normotensive. He was getting IV fluids. He is tolerating some oral diet. Denied any chest pain chest pressure palpitations. He denies any lightheadedness or dizziness at present. He denies any confusion. Hemoglobin 8.2, BUN 14, creatinine 1.05. Apparently patient is on Coreg 3.125 and Lasix at home. This was held at the time of admission. REVIEW OF SYSTEMS 14 point review of system is negative except what is mentioned above in HPI. PHYSICAL EXAMINATION Neck: Brisk carotid upstroke, no jugular venous distention. Lungs: Clear to auscultation. Heart: Regular rate and rhythm, S1-S2, systolic murmur audible in the aortic area. Abdomen: Soft nontender, positive bowel sounds. Extremities: No edema, intact distal pulses. Neuro: Alert, oritented, no focal deficits. Detailed neuro exam was not performed. ASSESSMENT Hypotension and generalized weakness, multifactorial due to failure to thrive, poor oral intake, the chemotherapy, antihypertensive medications. Patient is due to hypotension Stage IV lung cancer on chemotherapy Valvular heart disease was moderate aortic stenosis, moderate mitral regurgitation Failure to thrive Protein calorie energy malnutrition PLAN Because of moderate aortic stenosis and active malignancy on chemotherapy with Darbafenib and trametinib I would recommend to stop his Lasix and Cardizem going further. We can give him a low-dose beta-nishi to prevent cancer therapy related cardiomyopathy complications. Will start metoprolol succinate 25 mg once a day instead of Coreg. He has not had any echo and Lasix months. Will repeat echocardiogram to monitor his moderate aortic stenosis and mitral regurgitation. Discontinue IV fluids. Encourage p.o. intake. No acute coronary syndrome suspected at this time. With negative troponins Adarsh Peck, MD, FACC, RPVI Thank you for allowing [facility] to participate in this patient's care. Feel free to reach out in case of any followup questions. Past Medical History Past Medical History: Asthma, Cancer, COPD, GERD/Reflux, Hyperlipidemia, Hypertension, Pneumonia, Prostate Disorder, Rheumatoid Arthritis (RA), Sleep Apnea/CPAP/BIPAP Additional Past Medical History / Comment(s): cardiomyopathy, anemia, lung cancer diagnosed 12/29/2022 (last chemo finished 08/21/23, last radiation 06/2023) History of Any Multi-Drug Resistant Organisms: None Reported Past Surgical History: Hernia Repair, Joint Replacement, Orthopedic Surgery Additional Past Surgical History / Comment(s): colonoscopy,EGD, Antonina hip replacments, antonina fx ankles, screws removed from rt ankle Past Anesthesia/Blood Transfusion Reactions: No Reported Reaction Past Psychological History: Depression Smoking Status: Former smoker Past Alcohol Use History: Occasional Past Drug Use History: None Reported Medications and Allergies Home Medications Medication Instructions Recorded Confirmed Type Pramipexole Di-HCl [Mirapex] 1.5 mg PO BID@0800,199901/03/14 01/07/24 History allopurinoL [Zyloprim] 100 mg PO HS@199901/03/14 01/07/24 History Albuterol Sulfate [Albuterol 1 - 2 puff INHALATION RT-Q4H PRN 04/15/23 01/07/24 History Sulfate Hfa] Ergocalciferol (Vitamin D2) 1,250 mcg PO Q14D 04/15/23 01/07/24 History [Drisdol (50,000 Iu)] Ferrous Sulfate [Iron (65 MG 975 mg PO DAILY@1400 04/15/23 01/07/24 History Elemental)] Fluticasone Propion/Salmeterol 2 puff INHALATION RT-BID 04/15/23 01/07/24 History [Advair 250-50 Diskus] Montelukast [Singulair] 10 mg PO HS@199904/15/23 01/07/24 History Tamsulosin [Flomax] 0.4 mg PO DAILY@0800 04/15/23 01/07/24 History carvediloL [Coreg] 3.125 mg PO DIRECTED 04/15/23 01/07/24 History Albuterol Nebulized [Ventolin 2.5 mg INHALATION RT-BID 09/08/23 01/07/24 History Nebulized] Benralizumab [Fasenra] 30 mg SQ Q56D 09/08/23 01/07/24 History Calcium Carbonate [Calcium] 600 mg PO BID@1400,199909/08/23 01/07/24 History Cholecalciferol [Vitamin D3 (10 10 mcg PO BID@1400,199909/08/23 01/07/24 History Mcg = 400 Iu)] Docusate Sodium 250 mg PO BID@0800,1400 09/08/23 01/07/24 History Omeprazole [PriLOSEC] 40 mg PO DAILY@0800 09/08/23 01/07/24 History Zoledronic Acid [Zometa] 4 mg IV Q90D 09/08/23 01/07/24 History Magnesium 250 mg PO DAILY@0800 09/25/23 01/07/24 History Ondansetron Odt [Zofran ODT] 4 mg PO DAILY PRN 09/25/23 01/07/24 History Furosemide [Lasix] 40 mg PO DIRECTED 11/08/23 01/07/24 History HYDROcodone/APAP 10-325MG [[place] 1 tab PO Q6H PRN 11/08/23 01/07/24 History 10-325] Morphine Sulfate ER [Ms Contin] 30 mg PO BID 11/08/23 01/07/24 History Rosuvastatin Calcium [Crestor] 40 mg PO DAILY@0800 11/08/23 01/07/24 History Dabrafenib (Tafinlar) 50mg Cap 50 mg PO BID 01/07/24 01/07/24 History Mirtazapine [Remeron] 15 mg PO HS@199901/07/24 01/07/24 History Trametinib Dimethyl Sulfoxide 0.5 mg PO BID 01/07/24 01/07/24 History [Mekinist] Allergies Allergy/AdvReac Type Severity Reaction Status Date / Time No Known Allergies Allergy Verified 01/06/24 20:00 Physical Exam Vitals: Vital Signs Temp Pulse Pulse Resp BP Pulse Ox 01/08/24 01:11 97.8 F 85 17 137/61 96 01/07/24 20:39 76 01/07/24 20:26 75 01/07/24 20:00 97.9 F 72 17 134/67 100 01/07/24 15:00 97.8 F 83 17 123/64 100 Intake and Output 01/07/24 01/08/24 01/08/24 22:59 06:59 14:59 Intake Total 118 Output Total 500 200 Balance -382 -200 Intake: Oral 118 Output: Urine 500 200 Other: Voiding Method Urinal Urinal Results 01/07/24 06:17 01/07/24 06:17 Current Medications Generic Name Dose Route Start Last Admin Trade Name Freq PRN Reason Stop Dose Admin Hydrocodone Bitart/Acetaminophen 1 each 01/07/24 13:01 Hydrocodone/Apap 10-325mg 1 Each Tab PO Q6H PRN Pain Albuterol Sulfate 2.5 mg 01/07/24 20:00 01/07/24 20:24 Albuterol Nebulized 2.5 Mg/3 Ml INHALATION 2.5 mg RT-BID CLYDE Administration Allopurinol 100 mg 01/07/24 20:00 01/07/24 20:05 Allopurinol 100 Mg Tab PO 100 mg HS@1999 [facility] Administration Atorvastatin Calcium 80 mg 01/08/24 08:00 Atorvastatin 80 Mg Tab PO DAILY@08 [facility] Budesonide/Formoterol Fumarate 2 puff 01/07/24 20:00 01/07/24 20:26 Symbicort 80-4.5 Mcg Inhaler INHALATION 2 puff RT-BID CLYDE Administration Calcium Carbonate/Glycine 500 mg 01/07/24 14:00 01/07/24 20:05 Calcium Carbonate 500 Mg Chewable PO 500 mg BID@ [facility] Administration Cholecalciferol 10 mcg 01/07/24 14:00 01/07/24 20:05 Cholecalciferol 10 Mcg (400 Iu) Tablet PO 10 mcg BID@ [facility] Administration Docusate Sodium 200 mg 01/07/24 14:00 01/07/24 14:14 Docusate 100 Mg Cap PO 200 mg BID@799,1399 CL[facility] Administration Sodium Chloride 1,000 mls @ 130 mls/hr 01/06/24 22:00 01/08/24 05:24 Saline 0.9% IV 130 mls/hr .Q7H42M CLYDE Administration Mirtazapine 15 mg 01/07/24 20:00 01/07/24 20:05 Mirtazapine 15 Mg Tab PO 15 mg HS@1999 [facility] Administration Montelukast Sodium 10 mg 01/07/24 20:00 01/07/24 20:05 Montelukast 10 Mg Tab PO 10 mg HS@1999 [facility] Administration Morphine Sulfate 4 mg 01/06/24 21:54 Morphine Sulfate 4 Mg/Ml Syringe IV Q4HR PRN Severe Pain (Scale 7 to 10) Morphine Sulfate 30 mg 01/07/24 21:00 01/07/24 20:05 Morphine Sulfate Er 30 Mg Tablet PO 30 mg BID CLYDE Administration Protocol Naloxone HCl 0.2 mg 01/06/24 21:54 Naloxone 0.4 Mg/Ml 1 Ml Vial IV Q2M PRN Opioid Reversal Ondansetron HCl 4 mg 01/06/24 21:54 Ondansetron 4 Mg/2 Ml Vial IVP Q8HR PRN Nausea And Vomiting Pantoprazole Sodium 40 mg 01/07/24 09:00 01/07/24 08:32 Pantoprazole 40 Mg/10 Ml Vial IV 40 mg DAILY CLYDE Administration Pramipexole Dihydrochloride 1.5 mg 01/07/24 20:00 01/07/24 20:05 Pramipexole 0.5 Mg Tab PO 1.5 mg BID@ [facility] Administration Tamsulosin HCl 0.4 mg 01/08/24 08:00 Tamsulosin 0.4 Mg Cap.Er.24h PO DAILY@0800 [facility] Intake and Output 01/07/24 01/08/24 01/08/24 22:59 06:59 14:59 Intake Total 118 Output Total 500 200 Balance -382 -200 Intake: Oral 118 Output: Urine 500 200 Other: Voiding Method Urinal Urinal 01/07/24 06:17 01/07/24 06:17
--- NOTE | 2024-01-08 07:20 | P.PN ---
Subjective Progress Note Date: 01/08/24 HISTORY OF PRESENTING ILLNESS 78-year-old male with past medical history of lung cancer diagnosed in 2022 status postchemotherapy and radiation therapy. Currently he is on chemotherapy with Darbafenib and trametinib for last 1 month. He also has history of valvular heart disease with moderate aortic stenosis, moderate mitral regurgitation. He presented to the hospital because of concerns of hypotension, dizziness, failure to thrive. Cardiology is consulted for evaluation of hypotension. Patient reports that at home his systolic blood pressures around 80 mmHg, on admission to the hospital where it was 104/74. At the time of evaluation 01/07/2024, 6 PM, patient was normotensive. He was getting IV fluids. He is tolerating some oral diet. Denied any chest pain chest pressure palpitations. He denies any lightheadedness or dizziness at present. He denies any confusion. Hemoglobin 8.2, BUN 14, creatinine 1.05. Apparently patient is on Coreg 3.125 and Lasix at home. This was held at the time of admission. Progress note January 08, 2024 Patient is seen and examined by this a.m. Patient reports that he is feeling much better. He denies having any lightheadedness or dizziness at present. He is able to tolerate orally. PHYSICAL EXAMINATION Neck: Brisk carotid upstroke, no jugular venous distention. Lungs: Clear to auscultation. Heart: Regular rate and rhythm, S1-S2, systolic murmur audible in the aortic area. Abdomen: Soft nontender, positive bowel sounds. Extremities: No edema, intact distal pulses. Neuro: Alert, oritented, no focal deficits. Detailed neuro exam was not performed. ASSESSMENT Hypotension and generalized weakness, multifactorial due to failure to thrive, poor oral intake, the chemotherapy, antihypertensive medications. Patient is due to hypotension Stage IV lung cancer on chemotherapy Valvular heart disease was moderate aortic stenosis, moderate mitral regurgitation Failure to thrive Protein calorie energy malnutrition PLAN Because of moderate aortic stenosis and active malignancy on chemotherapy with Darbafenib and trametinib I would recommend to stop his Lasix and Cardizem going further. We can give him a low-dose beta-nishi to prevent cancer therapy related cardiomyopathy complications. Will start metoprolol succinate 25 mg once a day instead of Coreg. He has not had any echo and Lasix months. Will repeat echocardiogram to monitor his moderate aortic stenosis and mitral regurgitation. Discontinue IV fluids. Encourage p.o. intake. No acute coronary syndrome suspected at this time. With negative troponins Objective - Vital Signs Vital signs: Vital Signs Temp 97.8 F 01/08/24 01:11 Pulse 85 01/08/24 01:11 Resp 17 01/08/24 01:11 BP 137/61 01/08/24 01:11 Pulse Ox 96 01/08/24 01:11 FiO2 Intake & Output 01/07/24 01/08/24 01/08/24 18:59 06:59 18:59 Intake Total 354 Output Total 400 700 Balance -46 -700 Intake: Oral 354 Output: Urine 400 700 Other: Voiding Method Urinal Urinal - Labs CBC & Chem 7: 01/07/24 06:17 01/07/24 06:17 Labs: Abnormal Lab Results - Last 24 Hours (Table) 01/07/24 Range/Units 16:50 Urine Protein 1+ H (Negative) Urine Mucus Rare H (None) /hpf
[2024-01-08] MEDS ORDERED: ATORVASTATIN 80 MG TAB PO SCH (08:00)
[2024-01-08 08:16] LABS: Anisocytosis Slight; Basophils % (A) 0 %; Eosinophils % (A) 0 %; HCT 28.5 % (39.0-53.0); HGB 8.9 gm/dL (13.0-17.5); Hypochromasia Marked; Lymphocytes # (A) 1.2 k/uL (1.0-4.8); Lymphocytes % (A) 29 %; MCH 31.3 pg (25.0-35.0); MCHC 31.4 g/dL (31.0-37.0); MCV 99.6 fL (80.0-100.0); Macrocytosis Slight; Mean Platelet Volume 8.9; Monocytes # (A) 0.2 k/uL (0-1.0); Monocytes % (A) 6 %; Neutrophils # (A) 2.5 k/uL (1.3-7.7); Neutrophils % (A) 62 %; Platelet Count 152 k/uL (150-450); RBC 2.86 m/uL (4.30-5.90); RDW 16.5 % (11.5-15.5)
[2024-01-08 08:42] LABS: African American GFR (CKD) >90 (>60 ml/min/1.73 sqM); Anion Gap -1 mmol/L; Blood Urea Nitrogen 9 mg/dL (9-20); Calcium 7.7 mg/dL (8.4-10.2); Carbon Dioxide 35 mmol/L (22-30); Chloride 106 mmol/L (98-107); Glucose 93 mg/dL (74-99); Magnesium 1.9 mg/dL (1.6-2.3); Non-African American GFR(CKD) 83 (>60 ml/min/1.73 sqM); Potassium 3.7 mmol/L (3.5-5.1); Sodium 140 mmol/L (137-145)
[2024-01-08] MEDS: TAMSULOSIN 0.4 MG CAP.ER.24H PO SCH (08:59)
[2024-01-08] MEDS: ATORVASTATIN 40 MG TAB PO SCH (09:00)
[2024-01-08] MEDS: METOPROLOL SUCCINATE (ER) 25 MG TAB.ER.24H PO SCH (09:00)
--- NOTE | 2024-01-08 13:22 | P.PN ---
Subjective Progress Note Date: 01/08/24 Interval History: History of present illness: 78-year-old male patient with past medical history significant for lung cancer diagnosed in 2022 status post chemo and radiation, history of cardiomyopathy, COPD, asthma, hypertension, hyperlipidemia, sleep apnea who presented to ER with a complaint of dizziness and low blood pressure. Patient was seen in the ER for hypertension yesterday, was given IV fluids and discharged home, patient Feeling Dizzy, Weak with Poor Intake for the past 2 to 3 Days, and Came Back to the ED Again. Patient Denied Any Fever, Chills, Complained of Chronic Cough without Any Change, Denied Any Nausea Vomiting Diarrhea Abdominal Pain, Constipation, Weakness or Numbness of the Extremities, Dysuria Urgency or Frequency. In the ED Patient Was Afebrile, Pulse Rate 89, Respiratory Rate 22, Blood Pressure 105/56, Saturating 98% to 100% on 3 L. WBC 6.0, hemoglobin 9.8, platelet 122. CMP was unremarkable except mildly elevated alkaline phosphatase 139 low albumin 3.3. CO2 34. Chest x-ray was negative for acute process. 01/08/2024 Patient was seen and examined today. Patient feeling better today. Appetite is improving. Blood pressure remains stable, afebrile, heart rate 76, saturating 95% on room air.WBCs 4.0, hemoglobin 8.9, platelets 152. BMP unremarkable. IV fluid discontinued. Lasix and Coreg held, cardiology evaluated the patient, recommended to start low-dose metoprolol. Ordered echocardiogram. Assessment and plan: Dizziness: Hypotension: Dehydration: History of lung cancer: BPH: Hypertension Hyperlipidemia Severe PCM: Moderate aortic stenosis Plan: Monitor vitals, telemetry Fall precautions IV fluids--now stopped Hold antihypertensives--Lasix and Coreg Nutrition consult/supplements Cardiology consulted--discontinue Coreg and Lasix, started low-dose Toprol-XL, echocardiogram. Oncology consult Echocardiogram pending. DVT prophylaxis SCD Monitor vital signs and labs Labs and medication were reviewed. Continue same treatment. Further recommendations as per clinical course of the patient PHYSICAL EXAMINATION: GENERAL: The patient is A&O x3, NAD HEENT: EOMI, Sclerae anicteric, Moist Mucous membranes Neck: Supple, Non tender, No JVD PULMONARY: Equal breath souds B/L, No wheezing, No crackles. CARDIOVASCULAR: S1, S2 present. No murmurs, rubs, or gallops. ABDOMEN: Soft, nontender, nondistended, normoactive bowel sounds. No guarding or rebound tenderness. MUSCULOSKELETAL: No edema, No cyanosis. No clubbing. Normal ROM. Intact peripheral pulses. EXTREMITIES: No cyanosis, clubbing, or pedal edema. NEUROLOGICAL: CN 2-12 grossly intact. No FND Skin: No Rash REVIEW OF SYSTEMS: CONSTITUTIONAL: No fever or chills. CARDIOVASCULAR: No chest pain, palpitations or syncope. PULMONARY: No shortness of breath, no cough, sore throat. GASTROINTESTINAL: No nausea, vomiting, diarrhea, abdominal pain. : No Dysuria, urgency, frequency. Extremities: No edema. NEUROLOGICAL: No headaches, no weakness, or numbness Dictation was produced using [employer]360 dictation software. please excuse any grammatical, word or spelling errors. Objective - Vital Signs Vital signs: Vital Signs Temp 98.1 F 01/08/24 07:00 Pulse 76 01/08/24 08:35 Resp 17 01/08/24 07:00 BP 127/61 01/08/24 07:00 Pulse Ox 95 01/08/24 08:23 FiO2 Intake & Output 01/07/24 01/08/24 01/08/24 18:59 06:59 18:59 Intake Total 354 118 Output Total 400 700 Balance -46 -700 118 Intake: Oral 354 118 Output: Urine 400 700 Other: Voiding Method Urinal Urinal Urinal - Labs CBC & Chem 7: 01/08/24 08:04 01/08/24 08:04 Labs: Abnormal Lab Results - Last 24 Hours (Table) 01/07/24 01/08/24 01/08/24 Range/Units 16:50 08:04 08:04 RBC 2.86 L (4.30-5.90) m/uL Hgb 8.9 L (13.0-17.5) gm/dL Hct 28.5 L (39.0-53.0) % RDW 16.5 H (11.5-15.5) % Carbon Dioxide 35 H (22-30) mmol/L Calcium 7.7 L (8.4-10.2) mg/dL Urine Protein 1+ H (Negative) Urine Mucus Rare H (None) /hpf
[2024-01-08] MEDS ORDERED: ZINC OXIDE PASTE (Z-GUARD) 1 APPLIC TOPICAL PRN (21:10)
[2024-01-09 08:32] LABS: BUN/Creat Ratio 10.38 Ratio (12.00-20.00); Blood Urea Nitrogen 8.3 mg/dL (9.0-27.0); Calcium 8.4 mg/dL (8.7-10.3); Carbon Dioxide 31.4 mmol/L (21.6-31.8); Chloride 105 mmol/L (96-109); Glucose 96 mg/dL (70-110); Potassium 3.8 mmol/L (3.5-5.5); Sodium 141 mmol/L (135-145)
[2024-01-09 08:37] LABS: Basophils # (A) 0.03 X 10*3/uL (0.00-0.10); Basophils % (A) 0.8 %; Eosinophils # (A) 0 X 10*3/uL (0.04-0.35); Eosinophils % (A) 0 %; HCT 29.4 % (39.6-50.0); HGB 8.7 g/dL (13.0-17.0); Lymphocytes # (A) 1.29 X 10*3/uL (0.90-5.00); Lymphocytes % (A) 33.2 %; MCH 30.6 pg (27.0-32.0); MCHC 29.6 g/dL (32.0-37.0); MCV 103.5 FL (80.0-97.0); Mean Platelet Volume 10.7 FL (9.5-12.2); Monocytes # (A) 0.33 X 10*3/uL (0.20-1.00); Monocytes % (A) 8.5 %; NRBC Per 100 WBC 0 X 10*3/uL (0.00-0.01); Neutrophils # (A) 2.22 X 10*3/uL (1.80-7.70); Platelet Count 169 X 10*3/uL (140-440); RBC 2.84 X 10*6/uL (4.40-5.60); RDW 15.7 % (11.5-14.5); WBC 3.89 X 10*3/uL (4.50-10.00)
--- NOTE | 2024-01-09 10:22 | P.PN ---
Subjective Progress Note Date: 01/09/24 HISTORY OF PRESENTING ILLNESS 78-year-old male with past medical history of lung cancer diagnosed in 2022 status postchemotherapy and radiation therapy. Currently he is on chemotherapy with Darbafenib and trametinib for last 1 month. He also has history of valvular heart disease with moderate aortic stenosis, moderate mitral regurgitation. He presented to the hospital because of concerns of hypotension, dizziness, failure to thrive. Cardiology is consulted for evaluation of hypotension. Patient reports that at home his systolic blood pressures around 80 mmHg, on admission to the hospital where it was 104/74. At the time of evaluation 01/07/2024, 6 PM, patient was normotensive. He was getting IV fluids. He is tolerating some oral diet. Denied any chest pain chest pressure palpitations. He denies any lightheadedness or dizziness at present. He denies any confusion. Hemoglobin 8.2, BUN 14, creatinine 1.05. Apparently patient is on Coreg 3.125 and Lasix at home. This was held at the time of admission. Progress note January 08, 2024 Patient is seen and examined by this a.m. Patient reports that he is feeling much better. He denies having any lightheadedness or dizziness at present. He is able to tolerate orally. 01/09/24 Patient is seen and examined. He states his chest pain is better. He denies having any shortness of breath. Blood pressure 125/62, heart rate 74, pulse ox 99% on room air. Repeat blood work reveals WBC 3.8, hemoglobin 8.7. Electrolytes are normal, BUN 8.3 and creatinine 0.8. Echocardiogram is pending. PHYSICAL EXAMINATION Neck: Brisk carotid upstroke, no jugular venous distention. Lungs: Clear to auscultation. Heart: Regular rate and rhythm, S1-S2, systolic murmur audible in the aortic area. Abdomen: Soft nontender, positive bowel sounds. Extremities: No edema, intact distal pulses. Neuro: Alert, oritented, no focal deficits. Detailed neuro exam was not performed. ASSESSMENT Hypotension and generalized weakness, multifactorial due to failure to thrive, poor oral intake, the chemotherapy, antihypertensive medications. Patient is due to hypotension Stage IV lung cancer on chemotherapy Valvular heart disease was moderate aortic stenosis, moderate mitral regurgitation Failure to thrive Protein calorie energy malnutrition PLAN Continue patient on the following medications: Atorvastatin 40 mg daily, Toprol XL 25 mg daily (to prevent cancer related cardiomyopathy complications). Because of moderate aortic stenosis and active malignancy on chemotherapy with Darbafenib and trametinib I would recommend to stop his Lasix and Cardizem going forward. Obtain echocardiogram No acute coronary syndrome suspected at this time. With negative troponins Nurse practitioner note has been reviewed, I agree with documented findings and plan of care. Patient was seen and examined. Objective - Vital Signs Vital signs: Vital Signs Temp 97.8 F 01/09/24 07:00 Pulse 72 01/09/24 07:56 Resp 17 01/09/24 07:00 BP 125/62 01/09/24 07:00 Pulse Ox 99 01/09/24 07:00 FiO2 Intake & Output 01/08/24 01/09/24 01/09/24 18:59 06:59 18:59 Intake Total 236 Output Total 400 400 Balance -164 -400 Intake: Oral 236 Output: Urine 400 400 Other: Voiding Method Urinal Urinal - Labs CBC & Chem 7: 01/09/24 04:58 01/09/24 04:58 Labs: Abnormal Lab Results - Last 24 Hours (Table) 01/08/24 01/08/24 Range/Units 08:04 08:04 RBC 2.86 L (4.30-5.90) m/uL Hgb 8.9 L (13.0-17.5) gm/dL Hct 28.5 L (39.0-53.0) % RDW 16.5 H (11.5-15.5) % Carbon Dioxide 35 H (22-30) mmol/L Calcium 7.7 L (8.4-10.2) mg/dL
--- NOTE | 2024-01-09 15:25 | P.PN ---
Subjective Progress Note Date: 01/09/24 Interval History: History of present illness: 78-year-old male patient with past medical history significant for lung cancer diagnosed in 2022 status post chemo and radiation, history of cardiomyopathy, COPD, asthma, hypertension, hyperlipidemia, sleep apnea who presented to ER with a complaint of dizziness and low blood pressure. Patient was seen in the ER for hypertension yesterday, was given IV fluids and discharged home, patient Feeling Dizzy, Weak with Poor Intake for the past 2 to 3 Days, and Came Back to the ED Again. Patient Denied Any Fever, Chills, Complained of Chronic Cough without Any Change, Denied Any Nausea Vomiting Diarrhea Abdominal Pain, Constipation, Weakness or Numbness of the Extremities, Dysuria Urgency or Frequency. In the ED Patient Was Afebrile, Pulse Rate 89, Respiratory Rate 22, Blood Pressure 105/56, Saturating 98% to 100% on 3 L. WBC 6.0, hemoglobin 9.8, platelet 122. CMP was unremarkable except mildly elevated alkaline phosphatase 139 low albumin 3.3. CO2 34. Chest x-ray was negative for acute process. 01/08/2024 Patient was seen and examined today. Patient feeling better today. Appetite is improving. Blood pressure remains stable, afebrile, heart rate 76, saturating 95% on room air.WBCs 4.0, hemoglobin 8.9, platelets 152. BMP unremarkable. IV fluid discontinued. Lasix and Coreg held, cardiology evaluated the patient, recommended to start low-dose metoprolol. Ordered echocardiogram. 01/09/2024 Patient was seen and examined today. No issues overnight. Blood pressure still running soft. Echocardiogram pending. Will continue monitor orthostats. WBCs 3.8, hemoglobin 8.7, platelet 169. BMP unremarkable. Patient complained of on and off jerking movements of right upper extremities going on for about 2 weeks, relieved by remained on discontinued due to concern for akathisia. Neurology consult. Assessment and plan: Dizziness: Hypotension: Dehydration: History of lung cancer: BPH: Hypertension Hyperlipidemia Severe PCM: Moderate aortic stenosis Akathisia Plan: Monitor vitals, telemetry Fall precautions IV fluids--now stopped Hold antihypertensives--Lasix and Coreg Nutrition consult/supplements Cardiology consulted--discontinue Coreg and Lasix, started low-dose Toprol-XL, echocardiogram. Oncology consult Echocardiogram pending. Monitor orthostats every shift. Discontinued amiodarone due to concern for akathisia, neurology consult. DVT prophylaxis SCD Monitor vital signs and labs Labs and medication were reviewed. Continue same treatment. Further recommendations as per clinical course of e patient PHYSICAL EXAMINATION: GENERAL: The patient is A&O x3, NAD HEENT: EOMI, Sclerae anicteric, Moist Mucous membranes Neck: Supple, Non tender, No JVD PULMONARY: Equal breath souds B/L, No wheezing, No crackles. CARDIOVASCULAR: S1, S2 present. No murmurs, rubs, or gallops. ABDOMEN: Soft, nontender, nondistended, normoactive bowel sounds. No guarding or rebound tenderness. MUSCULOSKELETAL: No edema, No cyanosis. No clubbing. Normal ROM. Intact peripheral pulses. EXTREMITIES: No cyanosis, clubbing, or pedal edema. NEUROLOGICAL: CN 2-12 grossly intact. No FND Skin: No Rash REVIEW OF SYSTEMS: CONSTITUTIONAL: No fever or chills. CARDIOVASCULAR: No chest pain, palpitations or syncope. PULMONARY: No shortness of breath, no cough, sore throat. GASTROINTESTINAL: No nausea, vomiting, diarrhea, abdominal pain. : No Dysuria, urgency, frequency. Extremities: No edema. NEUROLOGICAL: No headaches, no weakness, or numbness Dictation was produced using [employer]cer dictation software. please excuse any grammatical, word or spelling errors. Objective - Vital Signs Vital signs: Vital Signs Temp 98.4 F 01/09/24 15:00 Pulse 85 01/09/24 15:00 Resp 16 01/09/24 15:00 BP 97/44 01/09/24 15:00 Pulse Ox 91 L 01/09/24 15:00 FiO2 Intake & Output 01/08/24 01/09/24 01/09/24 18:59 06:59 18:59 Intake Total 236 118 Output Total 400 400 Balance -164 -400 118 Intake: Oral 236 118 Output: Urine 400 400 Other: Voiding Method Urinal Urinal Toilet # Voids 4 - Labs CBC & Chem 7: 01/09/24 04:58 01/09/24 04:58 Labs: Abnormal Lab Results - Last 24 Hours (Table) 01/09/24 01/09/24 Range/Units 04:58 04:58 WBC 3.89 L (4.50-10.00) X 10*3/uL RBC 2.84 L (4.40-5.60) X 10*6/uL Hgb 8.7 L (13.0-17.0) g/dL Hct 29.4 L (39.6-50.0) % MCV 103.5 H (80.0-97.0) FL MCHC 29.6 L (32.0-37.0) g/dL RDW 15.7 H (11.5-14.5) % Eosinophils # 0 L (0.04-0.35) X 10*3/uL BUN 8.3 L (9.0-27.0) mg/dL BUN/Creatinine Ratio 10.38 L (12.00-20.00) Ratio Calcium 8.4 L (8.7-10.3) mg/dL
--- NOTE | 2024-01-09 18:18 | P.PN ---
Subjective Progress Note Date: 01/09/24 Principal diagnosis: hypotension, NSCLC Pt having ECHO when seen. He does not feel much better then when he came in. His BP readings from earlier today were better, very low when pt had orthostatics done. Appetite is poor, generalized weakness Objective - Vital Signs Vital signs: Vital Signs Temp 98.4 F 01/09/24 15:00 Pulse 85 01/09/24 15:00 Resp 16 01/09/24 15:00 BP 97/44 01/09/24 15:00 Pulse Ox 91 L 01/09/24 15:00 FiO2 Intake & Output 01/08/24 01/09/24 01/09/24 18:59 06:59 18:59 Intake Total 236 118 Output Total 400 400 Balance -164 -400 118 Intake: Oral 236 118 Output: Urine 400 400 Other: Voiding Method Urinal Urinal Toilet # Voids 4 - Constitutional General appearance: Present: average body habitus, cooperative, no acute distress - EENT Eyes: Present: anicteric sclerae, EOMI ENT: Present: hearing grossly normal - Respiratory Details: resp even and unlabored - Cardiovascular Rhythm: regular - Peripheral edema leg Peripheral Edema: bilateral: None - Integumentary Integumentary: Present: normal - Neurologic Neurologic: Present: CNII-XII intact - Musculoskeletal Musculoskeletal: Present: generalized weakness - Psychiatric Psychiatric: Present: A&O x's 3, appropriate affect, intact judgment & insight - Labs CBC & Chem 7: 01/09/24 04:58 01/09/24 04:58 Labs: Abnormal Lab Results - Last 24 Hours (Table) 01/09/24 01/09/24 Range/Units 04:58 04:58 WBC 3.89 L (4.50-10.00) X 10*3/uL RBC 2.84 L (4.40-5.60) X 10*6/uL Hgb 8.7 L (13.0-17.0) g/dL Hct 29.4 L (39.6-50.0) % MCV 103.5 H (80.0-97.0) FL MCHC 29.6 L (32.0-37.0) g/dL RDW 15.7 H (11.5-14.5) % Eosinophils # 0 L (0.04-0.35) X 10*3/uL BUN 8.3 L (9.0-27.0) mg/dL BUN/Creatinine Ratio 10.38 L (12.00-20.00) Ratio Calcium 8.4 L (8.7-10.3) mg/dL Assessment and Plan (1) Hypotension Current Visit: Yes Status: Acute Priority: High Code(s): I95.9 - HYPOTENSION, UNSPECIFIED SNOMED Code(s): 77578136 (2) Lung cancer Current Visit: Yes Status: Acute Priority: High Code(s): C34.90 - MALIGNANT NEOPLASM OF UNSP PART OF UNSP BRONCHUS OR LUNG SNOMED Code(s): 449634267 Plan: Hypotension, dizziness, weakness -Cardiology has seen pt, currently ECHO is on progress. -BP looks better when VS reviewed though, orthostatics read very low BP -Cardiology following. Medications have been changed. Pending further recommendations NSCLC -BRAF positive -MOst recently on treatment with BRAF inhibitor dabrafenib/trametinib, been on for about 1 month ago. Pt and felt that he was tolerating overall well. -There are potential cardiac side effects with this drug combination including LVEF dysfunction, though hypertension is more common vs hypotension. Pending Cardiology evaluation and recommendations -Cont to hold dabrafenib/trametinib while inpt -Clinic f/u scheduled for 01/[address] Gi Leigh-this may have to be rescheduled
--- NOTE | 2024-01-10 07:04 | CA ---
Transthoracic Echo Report Name: Jett Babcock Age: 78 Gender: M : 1945 Exam Date: 01/09/2024 13:37 Exam Location: [facility] Ht (in): 70 Wt (lb): 170 Ordering Physician: Adarsh Peck MD ([id number]) Attending/Referring Phys: [employer] Re[employer] Leader Karla Tya RDCS Procedure CPT: Indications: aortic stenosis quantification Cardiac Hx: Technical Quality: Fair Contrast 1: Total Dose (mL): Contrast 2: Total Dose (mL): MEASUREMENTS (Male / Female) Normal Values 2D ECHO LVOT Diameter 2.0 cm LV Diastolic Volume MOD BP 76.2 cm??? 67 - 155 / 56 - 104 cm??? LV Systolic Volume MOD BP 24.7 cm??? 22 - 58 / 19 - 49 cm??? LV Ejection Fraction MOD BP 67.5 % >= 55 % LV Cardiac Index MOD BP 2814.4 cm???/min???m??? LV Diastolic Volume MOD 4C 86.1 cm??? LV Systolic Volume MOD 4C 26.6 cm??? LV Ejection Fraction MOD 4C 69.1 % LV Cardiac Index MOD 4C 3251.0 cm???/min???m??? LV Diastolic Length 4C 8.1 cm LV Systolic Length 4C 6.4 cm LV Diastolic Volume MOD 2C 66.7 cm??? LV Systolic Volume MOD 2C 23.4 cm??? LV Ejection Fraction MOD 2C 65.0 % LV Cardiac Index MOD 2C 2370.3 cm???/min???m??? LV Diastolic Length 2C 8.0 cm LV Systolic Length 2C 6.4 cm M-MODE Aortic Root Diameter MM 3.4 cm LA Systolic Diameter MM 4.2 cm LA Ao Ratio MM 1.2 AV Cusp Separation MM 0.8 cm DOPPLER AV Peak Velocity 349.8 cm/s AV Peak Gradient 56.2 mmHg AV Mean Velocity 250.7 cm/s AV Mean Gradient 32.1 mmHg AV Velocity Time Integral 68.6 cm AI Peak Velocity 332.4 cm/s AI Peak Gradient 44.2 mmHg AI Pressure Half Time 684.6 ms LVOT Peak Velocity 99.9 cm/s LVOT Peak Gradient 4.0 mmHg LVOT Velocity Time Integral 26.7 cm LVOT Stroke Volume 87.9 cm??? LVOT Stroke Volume Index 45.1 ml/m??? LVOT Cardiac Index 4804.9 cm???/min???m??? AV Area Cont Eq vti 1.3 cm??? AV Area Cont Eq pk 0.9 cm??? FINDINGS Left Ventricle Left ventricular ejection fraction is estimated at 60-65 %. No obvious regional wall motion abnormalities. Left ventricular cavity size normal. Right Ventricle Severe right ventricular dilatation. Right Atrium Left Atrium Mitral Valve Aortic Valve Moderate aortic stenosis with a peak gradient of 56 mmHg and a mean gradient of 32mmHg. Mild aortic regurgitation. Thickened aortic valve. Tricuspid Valve Pulmonic Valve Pericardium Left pleural effusion. Aorta CONCLUSIONS Limited study Normal LV systolic function Dilated right ventricle Aortic sclerosis with moderate stenosis and mean gradient of 32 mmHg and mild aortic insufficiency Left pleural effusion was identified Trace pericardial effusion Previewed by: Dr. Gene Riggs MD (Electronically Signed) Final Date: 10 January 2024 07:03
--- NOTE | 2024-01-10 10:22 | P.PN ---
Subjective Progress Note Date: 01/10/24 HISTORY OF PRESENTING ILLNESS 78-year-old male with past medical history of lung cancer diagnosed in 2022 status postchemotherapy and radiation therapy. Currently he is on chemotherapy with Darbafenib and trametinib for last 1 month. He also has history of valvular heart disease with moderate aortic stenosis, moderate mitral regurgitation. He presented to the hospital because of concerns of hypotension, dizziness, failure to thrive. Cardiology is consulted for evaluation of hypotension. Patient reports that at home his systolic blood pressures around 80 mmHg, on admission to the hospital where it was 104/74. At the time of evaluation 01/07/2024, 6 PM, patient was normotensive. He was getting IV fluids. He is tolerating some oral diet. Denied any chest pain chest pressure palpitations. He denies any lightheadedness or dizziness at present. He denies any confusion. Hemoglobin 8.2, BUN 14, creatinine 1.05. Apparently patient is on Coreg 3.125 and Lasix at home. This was held at the time of admission. Progress note January 08, 2024 Patient is seen and examined by this a.m. Patient reports that he is feeling much better. He denies having any lightheadedness or dizziness at present. He is able to tolerate orally. 01/09/24 Patient is seen and examined. He states his chest pain is better. He denies having any shortness of breath. Blood pressure 125/62, heart rate 74, pulse ox 99% on room air. Repeat blood work reveals WBC 3.8, hemoglobin 8.7. Electrolytes are normal, BUN 8.3 and creatinine 0.8. Echocardiogram is pending. 01/10/2024 Patient seen and examined. He denies having any chest pain. He has been up to the bathroom no lightheadedness or dizziness. Orthostatic vital signs yesterday afternoon were positive. Repeat orthostatic vital signs this morning are borderline positive. Echocardiogram reveals normal EF 60 to 65%, dilated right ventricle, aortic sclerosis with moderate stenosis and mean gradient of 32 mmHg and mild aortic insufficiency. Left pleural effusion. Trace pericardial effusion. PHYSICAL EXAMINATION Neck: Brisk carotid upstroke, no jugular venous distention. Lungs: Clear to auscultation. Heart: Regular rate and rhythm, S1-S2, systolic murmur audible in the aortic area. Abdomen: Soft nontender, positive bowel sounds. Extremities: No edema, intact distal pulses. Neuro: Alert, oritented, no focal deficits. Detailed neuro exam was not performed. ASSESSMENT Hypotension and generalized weakness, multifactorial due to failure to thrive, poor oral intake, the chemotherapy, antihypertensive medications. Patient is due to hypotension Stage IV lung cancer on chemotherapy Valvular heart disease was moderate aortic stenosis, moderate mitral regurgitation Failure to thrive Protein calorie energy malnutrition PLAN Continue patient on the following medications: Atorvastatin 40 mg daily, Toprol XL 25 mg daily (to prevent cancer related cardiomyopathy complications). Because of moderate aortic stenosis and active malignancy on chemotherapy with Darbafenib and trametinib I would recommend to stop his Lasix and Cardizem going forward. Patient is cleared from cardiology for discharge and may follow-up in the office in 1 to 2 weeks. Nurse practitioner note has been reviewed, I agree with documented findings and plan of care. Patient was seen and examined. Objective - Vital Signs Vital signs: Vital Signs Temp 97.4 F L 01/10/24 07:32 Pulse 80 01/10/24 07:41 Resp 16 01/10/24 07:32 BP 135/71 01/10/24 07:32 Pulse Ox 93 L 01/10/24 07:32 FiO2 Intake & Output 01/09/24 01/10/24 01/10/24 18:59 06:59 18:59 Intake Total 236 Balance 236 Intake: Oral 236 Other: Voiding Method Toilet Toilet # Voids 4 1 - Labs CBC & Chem 7: 01/09/24 04:58 01/09/24 04:58 Labs: Abnormal Lab Results - Last 24 Hours (Table) 01/09/24 01/09/24 Range/Units 04:58 04:58 WBC 3.89 L (4.50-10.00) X 10*3/uL RBC 2.84 L (4.40-5.60) X 10*6/uL Hgb 8.7 L (13.0-17.0) g/dL Hct 29.4 L (39.6-50.0) % MCV 103.5 H (80.0-97.0) FL MCHC 29.6 L (32.0-37.0) g/dL RDW 15.7 H (11.5-14.5) % Eosinophils # 0 L (0.04-0.35) X 10*3/uL BUN 8.3 L (9.0-27.0) mg/dL BUN/Creatinine Ratio 10.38 L (12.00-20.00) Ratio Calcium 8.4 L (8.7-10.3) mg/dL
--- NOTE | 2024-01-10 15:52 | P.PN ---
Subjective Progress Note Date: 01/10/24 Interval History: History of present illness: 78-year-old male patient with past medical history significant for lung cancer diagnosed in 2022 status post chemo and radiation, history of cardiomyopathy, COPD, asthma, hypertension, hyperlipidemia, sleep apnea who presented to ER with a complaint of dizziness and low blood pressure. Patient was seen in the ER for hypertension yesterday, was given IV fluids and discharged home, patient Feeling Dizzy, Weak with Poor Intake for the past 2 to 3 Days, and Came Back to the ED Again. Patient Denied Any Fever, Chills, Complained of Chronic Cough without Any Change, Denied Any Nausea Vomiting Diarrhea Abdominal Pain, Constipation, Weakness or Numbness of the Extremities, Dysuria Urgency or Frequency. In the ED Patient Was Afebrile, Pulse Rate 89, Respiratory Rate 22, Blood Pressure 105/56, Saturating 98% to 100% on 3 L. WBC 6.0, hemoglobin 9.8, platelet 122. CMP was unremarkable except mildly elevated alkaline phosphatase 139 low albumin 3.3. CO2 34. Chest x-ray was negative for acute process. 01/08/2024 Patient was seen and examined today. Patient feeling better today. Appetite is improving. Blood pressure remains stable, afebrile, heart rate 76, saturating 95% on room air.WBCs 4.0, hemoglobin 8.9, platelets 152. BMP unremarkable. IV fluid discontinued. Lasix and Coreg held, cardiology evaluated the patient, recommended to start low-dose metoprolol. Ordered echocardiogram. 01/09/2024 Patient was seen and examined today. No issues overnight. Blood pressure still running soft. Echocardiogram pending. Will continue monitor orthostats. WBCs 3.8, hemoglobin 8.7, platelet 169. BMP unremarkable. Patient complained of on and off jerking movements of right upper extremities going on for about 2 weeks, relieved by remained on discontinued due to concern for akathisia. Neurology consult. 01/10/2024 Patient was seen and examined today. No issues overnight, complain of mild dizziness with ambulation. Otherwise asymptomatic. Orthostatics borderline positive today. Echocardiogram showed EF 60 to 65%, dilated RV, aortic sclerosis with moderate stenosis, mild AR insufficiency, left pleural effusion, trace pericardial effusion. Awaiting neurology evaluation for akathisia. Assessment and plan: Dizziness: Hypotension: Dehydration: History of lung cancer: BPH: Hypertension Hyperlipidemia Severe PCM: Moderate aortic stenosis Akathisia Plan: Monitor vitals, telemetry Fall precautions IV fluids--now stopped Hold antihypertensives--Lasix and Coreg Nutrition consult/supplements Cardiology consulted--discontinue Coreg and Lasix, started low-dose Toprol-XL, echocardiogram. Oncology consulted--- outpatient follow-up. Echocardiogram showed EF 60 to 65%, dilated RV, aortic sclerosis with moderate s tenosis, mild AR insufficiency, left pleural effusion, trace pericardial effusion. Monitor orthostats every shift. Discontinued Remerondue to concern for akathisia, neurology consult. DVT prophylaxis SCD Monitor vital signs and labs Labs and medication were reviewed. Continue same treatment. Further recommendations as per clinical course of the patient PHYSICAL EXAMINATION: GENERAL: The patient is A&O x3, NAD HEENT: EOMI, Sclerae anicteric, Moist Mucous membranes Neck: Supple, Non tender, No JVD PULMONARY: Equal breath souds B/L, No wheezing, No crackles. CARDIOVASCULAR: S1, S2 present. No murmurs, rubs, or gallops. ABDOMEN: Soft, nontender, nondistended, normoactive bowel sounds. No guarding or rebound tenderness. MUSCULOSKELETAL: No edema, No cyanosis. No clubbing. Normal ROM. Intact peripheral pulses. EXTREMITIES: No cyanosis, clubbing, or pedal edema. NEUROLOGICAL: CN 2-12 grossly intact. No FND Skin: No Rash REVIEW OF SYSTEMS: CONSTITUTIONAL: No fever or chills. CARDIOVASCULAR: No chest pain, palpitations or syncope. PULMONARY: No shortness of breath, no cough, sore throat. GASTROINTESTINAL: No nausea, vomiting, diarrhea, abdominal pain. : No Dysuria, urgency, frequency. Extremities: No edema. NEUROLOGICAL: No headaches, no weakness, or numbness Dictation was produced using [employer] dictation software. please excuse any grammatical, word or spelling errors. Objective - Vital Signs Vital signs: Vital Signs Temp 97.9 F 01/10/24 14:47 Pulse 71 01/10/24 14:47 Resp 16 01/10/24 14:47 BP 107/54 01/10/24 14:47 Pulse Ox 97 01/10/24 14:47 FiO2 Intake & Output 01/09/24 01/10/24 01/10/24 18:59 06:59 18:59 Intake Total 236 686 Balance 236 686 Intake: Oral 236 686 Other: Voiding Method Toilet Toilet # Voids 4 1 1 # Bowel Movements 1 - Labs CBC & Chem 7: 01/09/24 04:58 01/09/24 04:58
[2024-01-11 07:26] VITALS: BP 138/67; RESP 19; TEMP 97.8
--- NOTE | 2024-01-11 07:52 | P.PN ---
Subjective Progress Note Date: 01/11/24 HISTORY OF PRESENTING ILLNESS 78-year-old male with past medical history of lung cancer diagnosed in 2022 status postchemotherapy and radiation therapy. Currently he is on chemotherapy with Darbafenib and trametinib for last 1 month. He also has history of valvular heart disease with moderate aortic stenosis, moderate mitral regurgitation. He presented to the hospital because of concerns of hypotension, dizziness, failure to thrive. Cardiology is consulted for evaluation of hypotension. Patient reports that at home his systolic blood pressures around 80 mmHg, on admission to the hospital where it was 104/74. At the time of evaluation 01/07/2024, 6 PM, patient was normotensive. He was getting IV fluids. He is tolerating some oral diet. Denied any chest pain chest pressure palpitations. He denies any lightheadedness or dizziness at present. He denies any confusion. Hemoglobin 8.2, BUN 14, creatinine 1.05. Apparently patient is on Coreg 3.125 and Lasix at home. This was held at the time of admission. Progress note January 08, 2024 Patient is seen and examined by this a.m. Patient reports that he is feeling much better. He denies having any lightheadedness or dizziness at present. He is able to tolerate orally. 01/09/24 Patient is seen and examined. He states his chest pain is better. He denies having any shortness of breath. Blood pressure 125/62, heart rate 74, pulse ox 99% on room air. Repeat blood work reveals WBC 3.8, hemoglobin 8.7. Electrolytes are normal, BUN 8.3 and creatinine 0.8. Echocardiogram is pending. 01/10/2024 Patient seen and examined. He denies having any chest pain. He has been up to the bathroom no lightheadedness or dizziness. Orthostatic vital signs yesterday afternoon were positive. Repeat orthostatic vital signs this morning are borderline positive. Echocardiogram reveals normal EF 60 to 65%, dilated right ventricle, aortic sclerosis with moderate stenosis and mean gradient of 32 mmHg and mild aortic insufficiency. Left pleural effusion. Trace pericardial effusion. 01/11/2024 Patient is seen and examined. He denies having any chest pain or shortness of breath, no dizziness. Blood pressure 138/67, heart rate in the 70s, pulse ox 95% on room air. PHYSICAL EXAMINATION Neck: Brisk carotid upstroke, no jugular venous distention. Lungs: Clear to auscultation. Heart: Regular rate and rhythm, S1-S2, systolic murmur audible in the aortic area. Abdomen: Soft nontender, positive bowel sounds. Extremities: No edema, intact distal pulses. Neuro: Alert, oritented, no focal deficits. Detailed neuro exam was not perf ormed. ASSESSMENT Hypotension and generalized weakness, multifactorial due to failure to thrive, p oor oral intake, the chemotherapy, antihypertensive medications. Patient is due to hypotension Stage IV lung cancer on chemotherapy Valvular heart disease was moderate aortic stenosis, moderate mitral regurgitation Failure to thrive Protein calorie energy malnutrition PLAN Continue patient on the following medications: Atorvastatin 40 mg daily, Toprol XL 25 mg daily (to prevent cancer related cardiomyopathy complications). Because of moderate aortic stenosis and active malignancy on chemotherapy with Darbafenib and trametinib I would recommend to stop his Lasix and Cardizem going forward. Patient is cleared from cardiology for discharge and may follow-up in the office in 1 to 2 weeks. Cardiology will sign off this case and follow on an as-needed basis. Please reconsult for any new concerns. Nurse practitioner note has been reviewed, I agree with documented findings and plan of care. Patient was seen and examined. Objective - Vital Signs Vital signs: Vital Signs Temp 97.6 F 01/11/24 01:57 Pulse 76 01/11/24 01:57 Resp 17 01/11/24 01:57 BP 118/66 01/11/24 01:57 Pulse Ox 95 01/11/24 01:57 FiO2 Intake & Output 01/10/24 01/11/24 01/11/24 18:59 06:59 18:59 Intake Total 804 Balance 804 Intake: Oral 804 Other: Voiding Method Toilet # Voids 1 1 # Bowel Movements 1 - Labs CBC & Chem 7: 01/09/24 04:58 01/09/24 04:58
[2024-01-11 08:07] VITALS: PULSE 74
--- NOTE | 2024-01-11 09:39 | P.CNNES ---
History of Present Illness Consult date: 01/10/24 Requesting physician: Kwasi Clark Reason for Consult: Akathasia History of Present Illness: Patient is a 78-year-old right-handed male, with history of metastatic lung cancer, came to the hospital on 01/06/2024 with chief complaints of low blood pressure. Patient's was also present, who mentions that patient had low blood pressure running around 93/44, 101/54. Neurology was consulted for akathisia. Patient states that for the last 6 months, his hands sometimes jump. He would be typing and once in a while he would hit a novoa twice because of the finger jerk. However this became worse yesterday. Last night it was much worse. He was also receiving some pain medication. Today he is much better. At this time he has no twitches, tremors or akathisia. He uses home oxygen. Patient does have restless legs for which he is taking Mirapex. Patient's most recent blood test shows WBC 3.89, hemoglobin 8.7, platelets 169. CMP is normal. UA negative. EKG showed normal sinus rhythm. 2D echo revealed LVEF 60 to 65%. No obvious regional wall motion abnormalities. Left ventricular cavity size is normal. Aortic sclerosis with moderate stenosis. Left pleural effusion. Trace pericardial effusion. Patient had a CT head on 11/09/2023, which revealed no acute intracranial process. I personally reviewed CT head, agree with the findings. Some small vessel disease. Patient had a previous brain MRI on 05/31/2023 with and without contrast which revealed no evidence of intracranial mass, acute/subacute infarct or abnormal enhancement. Nonspecific white matter changes, likely related to small vessel ischemia. Patient's home medications include Mirapex 1.5 mg twice daily, Coreg, Flomax, vitamin D, Advair, vitamin D3, Fasenra 30 mg subcu every 56 days, Zometa, Crestor, Lasix, [place], Mekinist 0.5 mg twice daily and Remeron 15 mg at bedtime. Review of Systems All pertinent positive and negatives mentioned in the HPI. Past Medical History Past Medical History: Asthma, Cancer, COPD, GERD/Reflux, Hyperlipidemia, Hypertension, Pneumonia, Prostate Disorder, Rheumatoid Arthritis (RA), Sleep Apnea/CPAP/BIPAP Additional Past Medical History / Comment(s): cardiomyopathy, anemia, lung cancer diagnosed 12/29/2022 (last chemo finished 08/21/23, last radiation 06/2023) History of Any Multi-Drug Resistant Organisms: None Reported Past Surgical History: Hernia Repair, Joint Replacement, Orthopedic Surgery Additional Past Surgical History / Comment(s): colonoscopy,EGD, Scotty hip replacments, scotty fx ankles, screws removed from rt ankle Past Anesthesia/Blood Transfusion Reactions: No Reported Reaction Past Psychological History: Depression Smoking Status: Former smoker Past Alcohol Use History: Occasional Past Drug Use History: None Reported Medications and Allergies Home Medications Medication Instructions Recorded Confirmed Type Pramipexole Di-HCl [Mirapex] 1.5 mg PO BID@0800,199901/03/14 01/07/24 History allopurinoL [Zyloprim] 100 mg PO HS@199901/03/14 01/07/24 History Albuterol Sulfate [Albuterol 1 - 2 puff INHALATION RT-Q4H PRN 04/15/23 01/07/24 History Sulfate Hfa] Ergocalciferol (Vitamin D2) 1,250 mcg PO Q14D 04/15/23 01/07/24 History [Drisdol (50,000 Iu)] Ferrous Sulfate [Iron (65 MG 975 mg PO DAILY@1400 04/15/23 01/07/24 History Elemental)] Fluticasone Propion/Salmeterol 2 puff INHALATION RT-BID 04/15/23 01/07/24 History [Advair 250-50 Diskus] Montelukast [Singulair] 10 mg PO HS@199904/15/23 01/07/24 History Tamsulosin [Flomax] 0.4 mg PO DAILY@0800 04/15/23 01/07/24 History carvediloL [Coreg] 3.125 mg PO DIRECTED 04/15/23 01/07/24 History Albuterol Nebulized [Ventolin 2.5 mg INHALATION RT-BID 09/08/23 01/07/24 History Nebulized] Benralizumab [Fasenra] 30 mg SQ Q56D 09/08/23 01/07/24 History Calcium Carbonate [Calcium] 600 mg PO BID@1400,199909/08/23 01/07/24 History Cholecalciferol [Vitamin D3 (10 10 mcg PO BID@1400,199909/08/23 01/07/24 History Mcg = 400 Iu)] Docusate Sodium 250 mg PO BID@0800,1400 09/08/23 01/07/24 History Omeprazole [PriLOSEC] 40 mg PO DAILY@0800 09/08/23 01/07/24 History Zoledronic Acid [Zometa] 4 mg IV Q90D 09/08/23 01/07/24 History Magnesium 250 mg PO DAILY@0800 09/25/23 01/07/24 History Ondansetron Odt [Zofran ODT] 4 mg PO DAILY PRN 09/25/23 01/07/24 History Furosemide [Lasix] 40 mg PO DIRECTED 11/08/23 01/07/24 History HYDROcodone/APAP 10-325MG [[place] 1 tab PO Q6H PRN 11/08/23 01/07/24 History 10-325] Morphine Sulfate ER [Ms Contin] 30 mg PO BID 11/08/23 01/07/24 History Rosuvastatin Calcium [Crestor] 40 mg PO DAILY@0800 11/08/23 01/07/24 History Dabrafenib (Tafinlar) 50mg Cap 50 mg PO BID 01/07/24 01/07/24 History Mirtazapine [Remeron] 15 mg PO HS@199901/07/24 01/07/24 History Trametinib Dimethyl Sulfoxide 0.5 mg PO BID 01/07/24 01/07/24 History [Mekinist] Allergies Allergy/AdvReac Type Severity Reaction Status Date / Time No Known Allergies Allergy Verified 01/06/24 20:00 Physical Examination - Vital Signs Vital Signs: Vital Signs Temp Pulse Pulse Pulse Pulse Pulse Resp 01/10/24 14:47 97.9 F 71 16 01/10/24 11:15 97.6 F 82 82 17 01/10/24 09:12 88 94 97 01/10/24 07:41 80 01/10/24 07:32 97.4 F L 86 16 01/10/24 07:30 78 01/10/24 03:07 98.7 F 84 16 01/10/24 02:00 77 01/09/24 22:18 77 01/09/24 22:05 80 01/09/24 21:54 76 01/09/24 18:46 98.6 F 77 16 BP BP BP BP BP Pulse Ox 01/10/24 14:47 107/54 97 01/10/24 11:15 97/55 96 01/10/24 09:12 98/56 93/41 110/52 01/10/24 07:41 01/10/24 07:32 135/71 93 L 01/10/24 07:30 95 01/10/24 03:07 128/64 94 L 01/10/24 02:00 01/09/24 22:18 01/09/24 22:05 01/09/24 21:54 01/09/24 18:46 100/76 99 Intake and Output 01/10/24 01/10/24 01/10/24 06:59 14:59 22:59 Intake Total 804 Balance 804 Intake: Oral 804 Other: # Voids 1 1 # Bowel Movements 1 Patient is an elderly male, in no acute distress. Patient is using oxygen by nasal cannula. Patient is alert awake oriented to time place and person. Patient speaks with some nasal tone and mumbles at times. This has been going on for last 2 to 3 months as per his . At times appears slightly dysarthric. No aphasia. Patient can name and repeat very well. Attention, concentration and fund of knowledge is adequate. On cranial nerve examination, pupils are equal, round and reacting to light, visual garcia are full on confrontation, with no neglect on double simultaneous stimulation. Extraocular muscles are intact with no nystagmus. Face is symmetric, tongue protrudes to the midline. Palatal elevation and sensation normal, hearing and shoulder shrug normal, facial sensation normal. On muscle strength testing, there is no pronator drift and the strength is normal in arms and legs distally and proximally. Deep tendon reflexes are symmetric at the biceps, 2 brachioradialis, 2 at the knees, 1 ankles and plantars probable downgoing. Sensory to touch is equal with no neglect on double simultaneous stimulation. Cerebellar function showed no ataxia for [id number] testing. No dysdiadochokinesia. No ataxia for [id number] testing on either side. Tone and bulk of muscles normal. No tremors of outstretched hands. No myoclonic jerks noted. Gait deferred.. On general examination, there is no carotid bruit or murmur, S1-S2 audible. Chest is clear on consultation. Abdomen is soft nontender. No organomegaly, bowel sounds present. Patient has peripheral edema present. Results - Laboratory Findings CBC and BMP: 01/09/24 04:58 01/09/24 04:58 Abnormal Lab Findings: Abnormal Labs 01/06/24 01/06/24 01/07/24 20:08 20:08 06:17 WBC RBC 3.10 L 2.63 L Hgb 9.8 L 8.2 L D Hct 29.8 L 25.8 L MCV MCHC RDW 16.8 H 16.6 H Eosinophils # Sodium Potassium Carbon Dioxide 34 H BUN BUN/Creatinine Ratio Glucose 111 H Calcium 8.3 L Alkaline Phosphatase 139 H Total Protein Albumin 3.3 L Urine Protein Urine Mucus 01/07/24 01/07/24 01/08/24 06:17 16:50 08:04 WBC RBC 2.86 L Hgb 8.9 L Hct 28.5 L MCV MCHC RDW 16.5 H Eosinophils # Sodium 136 L Potassium 3.4 L Carbon Dioxide 36 H BUN BUN/Creatinine Ratio Glucose 105 H Calcium 7.5 L Alkaline Phosphatase Total Protein 5.9 L Albumin 2.5 L Urine Protein 1+ H Urine Mucus Rare H 01/08/24 01/09/24 01/09/24 08:04 04:58 04:58 WBC 3.89 L RBC 2.84 L Hgb 8.7 L Hct 29.4 L MCV 103.5 H MCHC 29.6 L RDW 15.7 H Eosinophils # 0 L Sodium Potassium Carbon Dioxide 35 H BUN 8.3 L BUN/Creatinine Ratio 10.38 L Glucose Calcium 7.7 L 8.4 L Alkaline Phosphatase Total Protein Albumin Urine Protein Urine Mucus Assessment and Plan Assessment: * Myoclonic jerks, likely due to metabolic encephalopathy. This could be related to low oxygen, hypotension or other medical reasons including pain medication. The myoclonic jerks have resolved. At present there is no akathisia, any tremors or myoclonus. * Stage IV lung cancer, on chemotherapy * Valvular heart disease * Protein calorie malnutrition Plan: * At present patient does not have any tremors, myoclonic jerks or akathisia. * All symptoms have resolved. * No other neurological workup indicated. TSH is normal 2.54. * Please call neurology, if the tremors reappear. * Neurologically clear for discharge. Discussed with primary physician. * Thank you for the consult.
--- NOTE | 2024-01-11 09:58 | P.DS ---
Providers Date of admission: 01/10/24 12:33 Expected date of discharge: 01/11/24 Attending physician: Dank Mantilla Consults: 01/06/24 21:54 Consult Physician Routine Consulting Provider: Monica Leigh Consult Reason/Comments: known Do you want consulting provider notified?: Yes 01/07/24 14:30 Consult Physician Routine Consulting Provider: Gerardo Rivera Consult Reason/Comments: known pt, hypotension, evaluate cardiac meds Do you want consulting provider notified?: Yes 01/09/24 15:25 Consult Physician Routine Consulting Provider: Aruna Mcdonald Consult Reason/Comments: Akathisia Do you want consulting provider notified?: Yes Primary care physician: Nalini Palmer [facility] Course: Discharge diagnoses: Dizziness: Hypotension: Dehydration: History of lung cancer: BPH: Hypertension Hyperlipidemia Severe PCM: Moderate aortic stenosis Myoclonic jerks of upper extremitiesresolved Plan: Patient was monitored with telemetry, vitals were monitored, fall precautions were maintained. Ortho status were monitored, gradually improved with IV fluids. Patient's Lasix and Coreg was discontinued per cardiology recommendation, patient was started on low-dose Toprol-XL. Nutrition consult/supplements Cardiology consulted--discontinue Coreg and Lasix, started low-dose Toprol-XL, echocardiogram. Oncology consulted--- outpatient follow-up. Echocardiogram showed EF 60 to 65%, dilated RV, aortic sclerosis with moderate stenosis, mild AR insufficiency, left pleural effusion, trace pericardial effusion. Monitor orthostats every shift. Multiple consulted for abnormal hand movements, per neurology myoclonic jerks likely secondary to metabolic encephalopathyresolved. Hospital course: 78-year-old male patient with past medical history significant for lung cancer diagnosed in 2022 status post chemo and radiation, history of cardiomyopathy, COPD, asthma, hypertension, hyperlipidemia, sleep apnea who presented to ER with a complaint of dizziness and low blood pressure. Patient was seen in the ER for hypertension yesterday, was given IV fluids and discharged home, patient Feeling Dizzy, Weak with Poor Intake for the past 2 to 3 Days, and Came Back to the ED Again. Patient Denied Any Fever, Chills, Complained of Chronic Cough without Any Change, Denied Any Nausea Vomiting Diarrhea Abdominal Pain, Constipation, Weakness or Numbness of the Extremities, Dysuria Urgency or Frequency. In the ED Patient Was Afebrile, Pulse Rate 89, Respiratory Rate 22, Blood Pressure 105/56, Saturating 98% to 100% on 3 L. WBC 6.0, hemoglobin 9.8, platelet 122. CMP was unremarkable except mildly elevated alkaline phosphatase 139 low albumin 3.3. CO2 34. Chest x-ray was negative for acute process. 01/08/2024 Patient was seen and examined today. Patient feeling better today. Appetite is improving. Blood pressure remains stable, afebrile, heart rate 76, saturating 95% on room air.WBCs 4.0, hemoglobin 8.9, platelets 152. BMP unremarkable. IV fluid discontinued. Lasix and Coreg held, cardiology evaluated the patient, recommended to start low-dose metoprolol. Ordered echocardiogram. 01/09/2024 Patient was seen and examined today. No issues overnight. Blood pressure still running soft. Echocardiogram pending. Will continue monitor orthostats. WBCs 3.8, hemoglobin 8.7, platelet 169. BMP unremarkable. Patient complained of on and off jerking movements of right upper extremities going on for about 2 weeks, relieved by remained on discontinued due to concern for akathisia. Neurology consult. 01/10/2024 Patient was seen and examined today. No issues overnight, complain of mild dizziness with ambulation. Otherwise asymptomatic. Orthostatics borderline positive today. Echocardiogram showed EF 60 to 65%, dilated RV, aortic sclerosis with moderate stenosis, mild AR insufficiency, left pleural effusion, trace pericardial effusion. 01/11/24 Patient was seen and examined today. Patient feeling better today. Dizziness has resolved. No further myoclonic jerks/tremors in the upper extremities. Afebrile, heart rate 74, blood pressure 138/67, saturating 95% on room air. Labs stable, WBCs 3.8, hemoglobin 8.7, platelet 169. BMP mostly unremarkable. Okay to discharge per cardiology and neurology. Neurology consulted, evaluated the patient for abnormal hand movements which has resolved now, per neurology myoclonic jerks/tremors likely secondary to acute metabolic encephalopathy, no further workup, recommended outpatient follow-up as needed. Patient Lasix and Coreg discontinued per cardiology recommendation, patient started on low-dose Toprol-XL. Patient's other home medications resumed at discharge. Flomax changed to nightly. Patient condition vital stable at discharge. Follow-up with PCP in 1 week. Follow-up with oncology as outpatient Follow-up with cardiology as outpatient. PHYSICAL EXAMINATION: GENERAL: The patient is A&O x3, NAD HEENT: EOMI, Sclerae anicteric, Moist Mucous membranes Neck: Supple, Non tender, No JVD PULMONARY: Equal breath souds B/L, No wheezing, No crackles. CARDIOVASCULAR: S1, S2 present. No murmurs, rubs, or gallops. ABDOMEN: Soft, nontender, nondistended, normoactive bowel sounds. No guarding or rebound tenderness. MUSCULOSKELETAL: No edema, No cyanosis. No clubbing. Normal ROM. Intact peripheral pulses. NEUROLOGICAL: CN 2-12 grossly intact. No FND SKIN: No rashes. Dictation was produced using [employer] dictation software. please excuse any grammatical, word or spelling errors. Patient Condition at Discharge: Fair Plan - Discharge Summary New Discharge Prescriptions: New Metoprolol Succinate (ER) [Toprol XL] 25 mg PO DAILY #30 tab Continue allopurinoL [Zyloprim] 100 mg PO HS@1999 Pramipexole Di-HCl [Mirapex] 1.5 mg PO BID@0800,1999 Montelukast [Singulair] 10 mg PO HS@2000 Ferrous Sulfate [Iron (65 MG Elemental)] 975 mg PO DAILY@1400 Ergocalciferol (Vitamin D2) [Drisdol (50,000 Iu)] 1,250 mcg PO Q14D Albuterol Sulfate [Albuterol Sulfate Hfa] 1 - 2 puff INHALATION RT-Q4H PRN PRN Reason: Shortness Of Breath Calcium Carbonate [Calcium] 600 mg PO BID@1400,1999 Cholecalciferol [Vitamin D3 (10 Mcg = 400 Iu)] 10 mcg PO BID@1400,2000 Docusate Sodium 250 mg PO BID@0800,1400 Omeprazole [PriLOSEC] 40 mg PO DAILY@0800 Magnesium 250 mg PO DAILY@0800 Rosuvastatin Calcium [Crestor] 40 mg PO DAILY@0800 Dabrafenib (Tafinlar) 50mg Cap 50 mg PO BID Fluticasone Propion/Salmeterol [Advair 250-50 Diskus] 2 puff INHALATION RT- BID Albuterol Nebulized [Ventolin Nebulized] 2.5 mg INHALATION RT-BID Benralizumab [Fasenra] 30 mg SQ Q56D Zoledronic Acid [Zometa] 4 mg IV Q90D Ondansetron Odt [Zofran ODT] 4 mg PO DAILY PRN PRN Reason: Nausea Morphine Sulfate ER [Ms Contin] 30 mg PO BID HYDROcodone/APAP 10-325MG [[place] 10-325] 1 tab PO Q6H PRN PRN Reason: Pain Trametinib Dimethyl Sulfoxide [Mekinist] 0.5 mg PO BID Mirtazapine [Remeron] 15 mg PO HS@1999 Discontinued carvediloL [Coreg] 3.125 mg PO DIRECTED Furosemide [Lasix] 40 mg PO DIRECTED No Action Tamsulosin [Flomax] 0.4 mg PO DAILY@0800 Discharge Medication List Pramipexole Di-HCl [Mirapex] 1.5 mg PO BID@799,199901/03/14 [History] allopurinoL [Zyloprim] 100 mg PO HS@199901/03/14 [History] Albuterol Sulfate [Albuterol Sulfate Hfa] 1 - 2 puff INHALATION RT-Q4H PRN 04/15/23 [History] Ergocalciferol (Vitamin D2) [Drisdol (50,000 Iu)] 1,250 mcg PO Q14D 04/15/23 [History] Ferrous Sulfate [Iron (65 MG Elemental)] 975 mg PO DAILY@139904/15/23 [History] Fluticasone Propion/Salmeterol [Advair 250-50 Diskus] 2 puff INHALATION RT-BID 04/15/23 [History] Montelukast [Singulair] 10 mg PO HS@199904/15/23 [History] Tamsulosin [Flomax] 0.4 mg PO DAILY@0804/15/23 [History] Albuterol Nebulized [Ventolin Nebulized] 2.5 mg INHALATION RT-BID 09/08/23 [History] Benralizumab [Fasenra] 30 mg SQ Q56D 09/08/23 [History] Calcium Carbonate [Calcium] 600 mg PO BID@1399,199909/08/23 [History] Cholecalciferol [Vitamin D3 (10 Mcg = 400 Iu)] 10 mcg PO BID@1399,199909/08/23 [History] Docusate Sodium 250 mg PO BID@0800,139909/08/23 [History] Omeprazole [PriLOSEC] 40 mg PO DAILY@79909/08/23 [History] Zoledronic Acid [Zometa] 4 mg IV Q90D 09/08/23 [History] Magnesium 250 mg PO DAILY@79909/25/23 [History] Ondansetron Odt [Zofran ODT] 4 mg PO DAILY PRN 09/25/23 [History] HYDROcodone/APAP 10-325MG [[place] 10-325] 1 tab PO Q6H PRN 11/08/23 [History] Morphine Sulfate ER [Ms Contin] 30 mg PO BID 11/08/23 [History] Rosuvastatin Calcium [Crestor] 40 mg PO DAILY@79911/08/23 [History] Dabrafenib (Tafinlar) 50mg Cap 50 mg PO BID 01/07/24 [History] Mirtazapine [Remeron] 15 mg PO HS@199901/07/24 [History] Trametinib Dimethyl Sulfoxide [Mekinist] 0.5 mg PO BID 01/07/24 [History] Metoprolol Succinate (ER) [Toprol XL] 25 mg PO DAILY #30 tab 01/11/24 [Rx] Follow up Appointment(s)/Referral(s): Gerardo Rivera MD [STAFF PHYSICIAN] - 1 Week [facility], [NON-STAFF] - As Needed () Monica Leigh MD [STAFF PHYSICIAN] - 01/12/24 8:15 am Nalini Palmer MD [Primary Care Provider] - 1-2 days Patient Instructions/Handouts: Hypotension (DC) Activity/Diet/Wound Care/Special Instructions: medication changes Discharge Disposition: HOME SELF-CARE
[2024-01-11] MEDS ORDERED: TAMSULOSIN 0.4 MG CAP.ER.24H PO SCH (21:00)
== END 2024-01-11 10:51 | disposition home health service (06) | DRG 314 ==
LOC: EC 19:08 → 6NMEDSUR 21:54 → OBSVTOIN 01-10 12:33
PROVIDERS: ADMIT Hospitalist; ATTEND Hospitalist
DX: I95.89 Other hypotension (principal); E43 Unspecified severe protein-calorie malnutrition; G93.41 Metabolic encephalopathy; J90 Pleural effusion, not elsewhere classified; C79.9 Secondary malignant neoplasm of unspecified site; I42.9 Cardiomyopathy, unspecified; C34.32 Malignant neoplasm of lower lobe, left bronchus or lung; M06.9 Rheumatoid arthritis, unspecified; I70.0 Atherosclerosis of aorta; R62.7 Adult failure to thrive; G25.3 Myoclonus; J44.89 Other specified chronic obstructive pulmonary disease; I08.0 Rheumatic disorders of both mitral and aortic valves; I11.9 Hypertensive heart disease without heart failure; G25.81 Restless legs syndrome; D63.0 Anemia in neoplastic disease; E86.0 Dehydration; E78.5 Hyperlipidemia, unspecified; R53.81 Other malaise; M89.8X8 Other specified disorders of bone, other site; N40.1 Benign prostatic hyperplasia with lower urinary tract symptoms; R39.11 Hesitancy of micturition; Z96.643 Presence of artificial hip joint, bilateral; Z79.891 Long term (current) use of opiate analgesic; Z87.891 Personal history of nicotine dependence; Z92.3 Personal history of irradiation; Z92.21 Personal history of antineoplastic chemotherapy; Z79.899 Other long term (current) drug therapy; Z79.51 Long term (current) use of inhaled steroids; Z68.24 Body mass index [BMI] 24.0-24.9, adult; Z86.018 Personal history of other benign neoplasm
CPT/HCPCS: 36415; 71046; 80048; 80053; 81001; 83605; 83735; 84100; 84484; 85025; 93005; 93306; 94640; 94760; 99285

== ENCOUNTER → 2024-02-02 | Outpatient (CLI) | payer MEDICARE ==
--- NOTE | 2024-02-02 13:37 | US ---
EXAMINATION TYPE: US venous doppler duplex LE BI DATE OF EXAM: 02/02/2024 1:16 PM COMPARISON: US(09/07/2023) CLINICAL INDICATION: Male, 78 years old with history of C34.92 LUNG CA R07.89 CH PAIN R22.43 SWELL BL E; Bilateral swelling, Pain TECHNIQUE: The lower extremity deep venous system is examined utilizing real time linear array sonog riccardo with graded compression, color doppler sonography, and spectral doppler. SIDE PERFORMED: Bilateral FINDINGS: VESSELS IMAGED: Common Femoral Vein Deep Femoral Vein Greater Saphenous Vein * Femoral Vein Popliteal Vein Small Saphenous Vein * Proximal Calf Veins (* superficial vessels) Right Leg: Negative for DVT, Color Doppler imaging shows patency of the vessels. Spectral waveforms are within normal limits. Left Leg: Negative for DVT, Color Doppler imaging shows patency of the vessels. Spectral waveforms a re within normal limits. IMPRESSION: No ultrasound evidence for deep venous thrombosis. [facility], , 02/02/2024 1:35 PM
[2024-02-02 14:20] LABS: ALT 15 U/L (4-49); AST 27 U/L (17-59); African American GFR (CKD) >90 (>60 ml/min/1.73 sqM); Albumin 3.4 g/dL (3.5-5.0); Albumin/Globulin Ratio 0.9; Alkaline Phosphatase 119 U/L (38-126); Anion Gap 4 mmol/L; Blood Urea Nitrogen 9 mg/dL (9-20); Calcium 8.6 mg/dL (8.4-10.2); Carbon Dioxide 31 mmol/L (22-30); Chloride 102 mmol/L (98-107); Globulin 3.7 g/dL; Glucose 88 mg/dL (74-99); Non-African American GFR(CKD) 83 (>60 ml/min/1.73 sqM); Potassium 4.6 mmol/L (3.5-5.1); Sodium 137 mmol/L (137-145); Total Bilirubin 0.6 mg/dL (0.2-1.3); Total Protein 7.1 g/dL (6.3-8.2)
--- NOTE | 2024-02-02 18:11 | CT ---
EXAMINATION TYPE: CT angio chest DATE OF EXAM: 02/02/2024 5:39 PM COMPARISON: 11/09/2023 CLINICAL INDICATION: Male, 78 years old with history of C34.92 LUNG CA R07.89 CH PAIN R22.43 SWELL BL E, Lung CA. TECHNIQUE: CT of the chest is performed on a spiral scan at 2 mm thick sections. Study is performed with intravenous contrast timed for evaluation for pulmonary embolism. This will limit additional po rtions of the evaluation. 3-D MIP images reconstructed by the technologist are reviewed on the compu ter in the coronal and sagittal planes. Contrast used:100 ml mL of Isovue 370 with IV Contrast, (none if empty) Oral contrast used: (none if empty) CT DLP: 941.1 mGycm, Automated exposure control for dose reduction was used. FINDINGS: No persistent filling defects are evident to suggest an acute pulmonary embolism. No mediastinal or hilar adenopathy enlarged by CT criteria is evident. There are scattered small med iastinal lymph nodes present. Vascular calcifications within the aorta. There is a two-vessel arch with a common origin of the left common and right subclavian arteries. The ascending aorta diameter at the level of the main pulmonar y artery is 3.9 cm. The main pulmonary artery diameter at the bifurcation is 3.1 cm. There is a small left pleural effusion. There is likely some adjacent compressive atelectasis. There is a soft tissue density measuring 4.9 x 1.8 cm in the left infrahilar region. Series 6 image 8 9. There may be a punctate nodule in the right lung base above the diaphragm, series 5 image 52a punctat e nodular density is within the right mid lung. Series 5 image 40 punctate nodular density in the per iphery of the left midlung. Series 5 image 39 punctate nodular density left mid lung. Series [address] sections were through the upper abdomen. Right renal cyst is present in the upper pole. IMPRESSION: 1. No acute pulmonary embolism. 2. Soft tissue mass left infrahilar region. This may be developing from comparison. 3. Resolution previous right pleural effusion. Small residual left pleural effusion. 4. Lymphadenopathy is increasing prominence from comparison. However, no enlargement by CT criteria i s evident. 5. Punctate nodular densities may be developing bilaterally. [facility], Workstation: [id number] 02/02/2024 6:08 PM
== END | disposition home or self-care (01) ==
LOC: RADUSWWP 11:59
PROVIDERS: ATTEND Internal Medicine
DX: C34.92 Malignant neoplasm of unspecified part of left bronchus or lung (principal); J44.9 Chronic obstructive pulmonary disease, unspecified; R22.43 Localized swelling, mass and lump, lower limb, bilateral; R29.898 Other symptoms and signs involving the musculoskeletal system; R22.2 Localized swelling, mass and lump, trunk; J90 Pleural effusion, not elsewhere classified; N28.1 Cyst of kidney, acquired; C34.32 Malignant neoplasm of lower lobe, left bronchus or lung; I10 Essential (primary) hypertension
CPT/HCPCS: 80053; 93970; 71275; Q9967

== ENCOUNTER 2024-02-10 10:36 | Inpatient (IN) | payer MEDICARE ==
[2024-02-10] MEDS: SODIUM CHLORIDE 0.9% 500 ML 500 ML IV ONE (11:34)
[2024-02-10 11:45] LABS: VBG PH 7.37 (7.31-7.41)
[2024-02-10 11:47] LABS: Basophils % (A) 0 %; Eosinophils # (A) 0.1 k/uL (0-0.7); Eosinophils % (A) 1 %; HCT 37.9 % (39.0-53.0); Hypochromasia Moderate; Lymphocytes # (A) 0.5 k/uL (1.0-4.8); Lymphocytes % (A) 4 %; MCH 31.5 pg (25.0-35.0); MCHC 31.4 g/dL (31.0-37.0); Macrocytosis Slight; Mean Platelet Volume 8.1; Monocytes # (A) 0.3 k/uL (0-1.0); Monocytes % (A) 3 %; Neutrophils # (A) 10.5 k/uL (1.3-7.7); Neutrophils % (A) 92 %; Platelet Count 253 k/uL (150-450); RBC 3.79 m/uL (4.30-5.90); RDW 15.9 % (11.5-15.5); WBC 11.5 k/uL (3.8-10.6)
[2024-02-10 11:56] LABS: ALT 11 U/L (4-49); AST 20 U/L (17-59); African American GFR (CKD) 78 (>60 ml/min/1.73 sqM); Albumin 3.8 g/dL (3.5-5.0); Alkaline Phosphatase 129 U/L (38-126); Anion Gap 4 mmol/L; Blood Urea Nitrogen 17 mg/dL (9-20); Calcium 9.2 mg/dL (8.4-10.2); Carbon Dioxide 31 mmol/L (22-30); Chloride 99 mmol/L (98-107); Glucose 83 mg/dL (74-99); HGB 11.9 gm/dL (13.0-17.5); Magnesium 1.9 mg/dL (1.6-2.3); Non-African American GFR(CKD) 68 (>60 ml/min/1.73 sqM); Potassium 4.8 mmol/L (3.5-5.1); Sodium 134 mmol/L (137-145); Total Protein 7.6 g/dL (6.3-8.2)
--- NOTE | 2024-02-10 11:56 | ED ---
General Adult HPI - General Chief complaint: Altered Mental Status Stated complaint: low BP/cancer pt Time Seen by Provider: 02/10/24 10:54 Source: patient, family, RN notes reviewed, old records reviewed Mode of arrival: wheelchair Limitations: no limitations - History of Present Illness Initial comments: 78-year-old male history of COPD and lung cancer presenting from the oncologist office with low blood pressure, altered mental status and hallucination. History is obtained almost exclusively from the who is at bedside. She states he is had multiple episodes similar to this in the past. He is on an oral anticancer agent, is uncertain of this medication currently. No significant chest pain. - Related Data Home Medications Medication Instructions Recorded Confirmed Pramipexole Di-HCl [Mirapex] 1.5 mg PO BID@0800,199901/03/14 02/10/24 allopurinoL [Zyloprim] 100 mg PO HS@199901/03/14 02/10/24 Albuterol Sulfate [Albuterol 2 puff INHALATION RT-Q4H PRN 04/15/23 02/10/24 Sulfate Hfa] Ergocalciferol (Vitamin D2) 1,250 mcg PO Q14D 04/15/23 02/10/24 [Drisdol (50,000 Iu)] Ferrous Sulfate [Iron (65 MG 975 mg PO DAILY@1400 04/15/23 02/10/24 Elemental)] Fluticasone Propion/Salmeterol 2 puff INHALATION RT-BID 04/15/23 02/10/24 [Advair 250-50 Diskus] Montelukast [Singulair] 10 mg PO HS@199904/15/23 02/10/24 Tamsulosin [Flomax] 0.4 mg PO DAILY@0800 04/15/23 02/10/24 Albuterol Nebulized [Ventolin 2.5 mg INHALATION RT-BID 09/08/23 02/10/24 Nebulized] Benralizumab [Fasenra] 30 mg SQ Q56D 09/08/23 02/10/24 Calcium Carbonate [Calcium] 600 mg PO BID@1400,199909/08/23 02/10/24 Cholecalciferol [Vitamin D3 (10 10 mcg PO BID@1400,199909/08/23 02/10/24 Mcg = 400 Iu)] Docusate Sodium 250 mg PO BID@0800,1400 09/08/23 02/10/24 Omeprazole [PriLOSEC] 40 mg PO DAILY@0800 09/08/23 02/10/24 Zoledronic Acid [Zometa] 4 mg IV Q90D 09/08/23 02/10/24 Magnesium 250 mg PO DAILY@0800 09/25/23 02/10/24 Ondansetron Odt [Zofran ODT] 4 mg PO DAILY PRN 09/25/23 02/10/24 HYDROcodone/APAP 10-325MG [[place] 1 tab PO Q6H PRN 11/08/23 02/10/24 10-325] Morphine Sulfate ER [Ms Contin] 30 mg PO BID 11/08/23 02/10/24 Rosuvastatin Calcium [Crestor] 40 mg PO DAILY@0800 11/08/23 02/10/24 Dabrafenib (Tafinlar) 50mg Cap 50 mg PO BID 01/07/24 02/10/24 Mirtazapine [Remeron] 15 mg PO HS@199901/07/24 02/10/24 Trametinib Dimethyl Sulfoxide 0.5 mg PO BID 01/07/24 02/10/24 [Mekinist] Furosemide [Lasix] 40 mg PO DAILY 02/10/24 02/10/24 Megestrol [Megace] 400 mg PO TID PRN 02/10/24 02/10/24 Previous Rx's Medication Instructions Recorded Metoprolol Succinate (ER) [Toprol 25 mg PO DAILY #30 tab 01/11/24 XL] Allergies Allergy/AdvReac Type Severity Reaction Status Date / Time No Known Allergies Allergy Verified 02/10/24 13:13 Review of Systems ROS Statement: Those systems with pertinent positive or pertinent negative responses have been documented in the HPI. ROS Other: All systems not noted in ROS Statement are negative. Past Medical History Past Medical History: Asthma, Cancer, COPD, GERD/Reflux, Hyperlipidemia, Hypertension, Pneumonia, Prostate Disorder, Rheumatoid Arthritis (RA), Sleep Apnea/CPAP/BIPAP Additional Past Medical History / Comment(s): cardiomyopathy, anemia, lung cancer diagnosed 12/29/2022 (last chemo finished 08/21/23, last radiation 06/2023) History of Any Multi-Drug Resistant Organisms: None Reported Past Surgical History: Hernia Repair, Joint Replacement, Orthopedic Surgery Additional Past Surgical History / Comment(s): colonoscopy,EGD, Antonina hip replacments, antonina fx ankles, screws removed from rt ankle Past Anesthesia/Blood Transfusion Reactions: No Reported Reaction Past Psychological History: Depression Smoking Status: Former smoker Past Alcohol Use History: Occasional Past Drug Use History: None Reported General Exam Limitations: no limitations General appearance: lethargic Head exam: Present: atraumatic, normocephalic Eye exam: Present: normal appearance, PERRL ENT exam: Present: mucous membranes dry Respiratory exam: Present: decreased breath sounds. Absent: respiratory distress Cardiovascular Exam: Present: regular rate, normal rhythm GI/Abdominal exam: Present: soft. Absent: distended, tenderness, guarding Extremities exam: Present: normal inspection, normal capillary refill Neurological exam: Present: alert, motor sensory deficit. Absent: oriented X3 Skin exam: Present: warm, dry Course Vital Signs 02/10/24 02/10/24 02/10/24 10:39 10:49 11:03 Temperature 98.8 F Pulse Rate 104 H 90 71 Respiratory 20 18 Rate Blood Pressure 101/61 107/58 O2 Sat by Pulse 88 L 92 L 85 L Oximetry Fraction of Inspired Oxygen (FIO2) 02/10/24 02/10/24 02/10/24 11:31 11:32 11:34 Temperature Pulse Rate Respiratory Rate Blood Pressure O2 Sat by Pulse Oximetry Fraction of 80 80 80 Inspired Oxygen (FIO2) 02/10/24 02/10/24 12:55 14:18 Temperature 99.4 F Pulse Rate 113 H Respiratory 23 Rate Blood Pressure 113/72 O2 Sat by Pulse 99 Oximetry Fraction of 60 Inspired Oxygen (FIO2) Medical Decision Making - Medical Decision Making Was pt. sent in by a medical professional or institution (, PA, [employer], urgent care, hospital, or prison...) When possible be specific @ -No Did you speak to anyone other than the patient for history (EMS, parent, family, police, friend...)? What history was obtained from this source @ -No Did you review nursing and triage notes (agree or disagree)? Why? @ -I reviewed and agree with nursing and triage notes Were old charts reviewed (outside hosp., previous admission, EMS record, old EKG, old radiological studies, urgent care reports/EKG's, prison records)? Report findings @ -No old charts were reviewed Differential Altered Mental Status: Hypoglycemia, DKA, hypercapnia, ETOH, overdose, CO poisoning, trauma, myxedema coma, HTN encephalopathy, infection, encephalitis, psychosis, intercranial hemorrhage, hepatic encephalopathy, meningitis, CVA, this is not meant to be an all-inclusive list EKG interpreted by me (3pts min.). @ -Sinus rhythm rate of 88, IN interval 132, QRS duration 94, QTc [address] segment elevation X-rays interpreted by me (1pt min.). @ -[Chest x-ray showing subtle left lower lobe infiltrate CT interpreted by me (1pt min.). @ -CT brain negative for intracranial hemorrhage or mass effect. U/S interpreted by me (1pt. min.). @ -None done What testing was considered but not performed or refused? (CT, X-rays, U/S, labs)? Why? @ -None What meds were considered but not given or refused? Why? @ -None Did you discuss the management of the patient with other professionals (professionals i.e. , PA, [employer], lab, RT, psych nurse, sr. social media & mobile manager, insole rounder, teacher, railway patrol officer, case picker)? Give summary @ -No Was smoking cessation discussed for >3mins.? @ -No Was critical care preformed (if so, how long)? @ -Yes 35 minutes for respiratory support with BiPAP Were there social determinants of health that impacted care today? How? (Homelessness, low income, unemployed, alcoholism, drug addiction, transportation, low edu. Level, literacy, decrease access to med. care, [facility], rehab)? @ -No Was there de-escalation of care discussed even if they declined (Discuss DNR or withdrawal of care, Hospice)? DNR status @ -No What co-morbidities impacted this encounter? (DM, HTN, Smoking, COPD, CAD, Cancer, CVA, ARF, Chemo, Hep., AIDS, mental health diagnosis, sleep apnea, morbid obesity)? @ -[Lung cancer, COPD Was patient admitted / discharged? Hospital course, mention meds given and route , prescriptions, significant lab abnormalities, going to OR and other pertinent info. @ -78-year-old male with hypotension, confusion and hallucination coming from the oncologist office. Patient has a mild leukocytosis, he is anemic. Which is improved from prior. Patient given antibiotics for possible developing pneumonia. Head CT is negative for intracranial hemorrhage or mass effect. Patient is retaining CO2 which may be contributing to his confusion. He is placed on BiPAP which significantly improves his oxygenation and mentation. Patient admitted for to internal medicine with oncology on consult. Undiagnosed new problem with uncertain prognosis? @ -No Drug Therapy requiring intensive monitoring for toxicity (Heparin, Nitro, Insulin, Cardizem)? @ -No Were any procedures done? @ -No Diagnosis/symptom? @ -Lung cancer, hypotension, pneumonia Acute, or Chronic, or Acute on Chronic? @ -Acute on chronic Uncomplicated (without systemic symptoms) or Complicated (systemic symptoms)? @ -Default Side effects of treatment? @ -No Exacerbation, Progression, or Severe Exacerbation? @ -No Poses a threat to life or bodily function? How? (Chest pain, [place], [place], pneumonia, PE, COPD, DKA, ARF, appy, cholecystitis, CVA, Diverticulitis, Homicidal, Suicidal, threat to staff... and all critical care pts) @ -Yes, sepsis, pneumonia, respiratory failure - Lab Data Result diagrams: 02/10/24 11:27 02/10/24 11:27 Lab Results 02/10/24 02/10/24 02/10/24 Range/Units 11:27 11:27 11:27 WBC 11.5 H (3.8-10.6) k/uL RBC 3.79 L (4.30-5.90) m/uL Hgb 11.9 L D (13.0-17.5) gm/dL Hct 37.9 L (39.0-53.0) % MCV 100.0 (80.0-100.0) fL MCH 31.5 (25.0-35.0) pg MCHC 31.4 (31.0-37.0) g/dL RDW 15.9 H (11.5-15.5) % Plt Count 253 (150-450) k/uL MPV 8.1 Neutrophils % 92 % Lymphocytes % 4 % Monocytes % 3 % Eosinophils % 1 % Basophils % 0 % Neutrophils # 10.5 H (1.3-7.7) k/uL Lymphocytes # 0.5 L (1.0-4.8) k/uL Monocytes # 0.3 (0-1.0) k/uL Eosinophils # 0.1 (0-0.7) k/uL Basophils # 0.0 (0-0.2) k/uL Hypochromasia Moderate Macrocytosis Slight PT 10.4 (10.0-12.5) sec INR 0.9 (<1.2) APTT 24.4 (22.0-30.0) sec VBG pH 7.37 (7.31-7.41) VBG pCO2 56 H (37-51) mmHg VBG HCO3 32 H (24-28) mmol/L Sodium (137-145) mmol/L Potassium (3.5-5.1) mmol/L Chloride (98-107) mmol/L Carbon Dioxide (22-30) mmol/L Anion Gap mmol/L BUN (9-20) mg/dL Creatinine (0.66-1.25) mg/dL Est GFR (CKD-EPI)AfAm (>60 ml/min/1.73 sqM) Est GFR (CKD-EPI)NonAf (>60 ml/min/1.73 sqM) Glucose (74-99) mg/dL POC Glucose (mg/dL) (70-110) mg/dL POC Glu Motorcycle Delivery Driver ID Lactic Ac Sepsis Rflx Plasma Lactic Acid Ryan (0.7-2.0) mmol/L Calcium (8.4-10.2) mg/dL Magnesium (1.6-2.3) mg/dL Total Bilirubin (0.2-1.3) mg/dL AST (17-59) U/L ALT (4-49) U/L Alkaline Phosphatase (38-126) U/L Total Protein (6.3-8.2) g/dL Albumin (3.5-5.0) g/dL Urine Color Urine Appearance (Clear) Urine pH (5.0-8.0) Ur Specific [place] (1.001-1.035) Urine Protein (Negative) Urine Glucose (UA) (Negative) Urine Ketones (Negative) Urine Blood (Negative) Urine Nitrite (Negative) Urine Bilirubin (Negative) Urine Urobilinogen (<2.0) mg/dL Ur Leukocyte Esterase (Negative) Urine RBC (0-5) /hpf Urine WBC (0-5) /hpf Ur Squamous Epith Cells (0-4) /hpf Hyaline Casts (0-2) /lpf Urine Mucus (None) /hpf 02/10/24 02/10/24 02/10/24 Range/Units 11:27 11:27 12:14 WBC (3.8-10.6) k/uL RBC (4.30-5.90) m/uL Hgb (13.0-17.5) gm/dL Hct (39.0-53.0) % MCV (80.0-100.0) fL MCH (25.0-35.0) pg MCHC (31.0-37.0) g/dL RDW (11.5-15.5) % Plt Count (150-450) k/uL MPV Neutrophils % % Lymphocytes % % Monocytes % % Eosinophils % % Basophils % % Neutrophils # (1.3-7.7) k/uL Lymphocytes # (1.0-4.8) k/uL Monocytes # (0-1.0) k/uL Eosinophils # (0-0.7) k/uL Basophils # (0-0.2) k/uL Hypochromasia Macrocytosis PT (10.0-12.5) sec INR (<1.2) APTT (22.0-30.0) sec VBG pH (7.31-7.41) VBG pCO2 (37-51) mmHg VBG HCO3 (24-28) mmol/L Sodium 134 L (137-145) mmol/L Potassium 4.8 (3.5-5.1) mmol/L Chloride 99 (98-107) mmol/L Carbon Dioxide 31 H (22-30) mmol/L Anion Gap 4 mmol/L BUN 17 (9-20) mg/dL Creatinine 1.05 (0.66-1.25) mg/dL Est GFR (CKD-EPI)AfAm 78 (>60 ml/min/1.73 sqM) Est GFR (CKD-EPI)NonAf 68 (>60 ml/min/1.73 sqM) Glucose 83 (74-99) mg/dL POC Glucose (mg/dL) (70-110) mg/dL POC Glu Motorcycle Delivery Driver ID Lactic Ac Sepsis Rflx Y Plasma Lactic Acid Ryan 2.4 H* (0.7-2.0) mmol/L Calcium 9.2 (8.4-10.2) mg/dL Magnesium 1.9 (1.6-2.3) mg/dL Total Bilirubin 1.0 (0.2-1.3) mg/dL AST 20 (17-59) U/L ALT 11 (4-49) U/L Alkaline Phosphatase 129 H (38-126) U/L Total Protein 7.6 (6.3-8.2) g/dL Albumin 3.8 (3.5-5.0) g/dL Urine Color Urine Appearance (Clear) Urine pH (5.0-8.0) Ur Specific [place] (1.001-1.035) Urine Protein (Negative) Urine Glucose (UA) (Negative) Urine Ketones (Negative) Urine Blood (Negative) Urine Nitrite (Negative) Urine Bilirubin (Negative) Urine Urobilinogen (<2.0) mg/dL Ur Leukocyte Esterase (Negative) Urine RBC (0-5) /hpf Urine WBC (0-5) /hpf Ur Squamous Epith Cells (0-4) /hpf Hyaline Casts (0-2) /lpf Urine Mucus (None) /hpf 02/10/24 02/10/24 Range/Units 13:03 13:21 WBC (3.8-10.6) k/uL RBC (4.30-5.90) m/uL Hgb (13.0-17.5) gm/dL Hct (39.0-53.0) % MCV (80.0-100.0) fL MCH (25.0-35.0) pg MCHC (31.0-37.0) g/dL RDW (11.5-15.5) % Plt Count (150-450) k/uL MPV Neutrophils % % Lymphocytes % % Monocytes % % Eosinophils % % Basophils % % Neutrophils # (1.3-7.7) k/uL Lymphocytes # (1.0-4.8) k/uL Monocytes # (0-1.0) k/uL Eosinophils # (0-0.7) k/uL Basophils # (0-0.2) k/uL Hypochromasia Macrocytosis PT (10.0-12.5) sec INR (<1.2) APTT (22.0-30.0) sec VBG pH (7.31-7.41) VBG pCO2 (37-51) mmHg VBG HCO3 (24-28) mmol/L Sodium (137-145) mmol/L Potassium (3.5-5.1) mmol/L Chloride (98-107) mmol/L Carbon Dioxide (22-30) mmol/L Anion Gap mmol/L BUN (9-20) mg/dL Creatinine (0.66-1.25) mg/dL Est GFR (CKD-EPI)AfAm (>60 ml/min/1.73 sqM) Est GFR (CKD-EPI)NonAf (>60 ml/min/1.73 sqM) Glucose (74-99) mg/dL POC Glucose (mg/dL) 77 (70-110) mg/dL POC Glu Motorcycle Delivery Driver ID Daphney Alonzo Lactic Ac Sepsis Rflx Plasma Lactic Acid Ryan (0.7-2.0) mmol/L Calcium (8.4-10.2) mg/dL Magnesium (1.6-2.3) mg/dL Total Bilirubin (0.2-1.3) mg/dL AST (17-59) U/L ALT (4-49) U/L Alkaline Phosphatase (38-126) U/L Total Protein (6.3-8.2) g/dL Albumin (3.5-5.0) g/dL Urine Color Yellow Urine Appearance Clear (Clear) Urine pH 6.0 (5.0-8.0) Ur Specific [place] 1.022 (1.001-1.035) Urine Protein 1+ H (Negative) Urine Glucose (UA) Negative (Negative) Urine Ketones Negative (Negative) Urine Blood Negative (Negative) Urine Nitrite Negative (Negative) Urine Bilirubin Negative (Negative) Urine Urobilinogen <2.0 (<2.0) mg/dL Ur Leukocyte Esterase Negative (Negative) Urine RBC <1 (0-5) /hpf Urine WBC 10 H (0-5) /hpf Ur Squamous Epith Cells <1 (0-4) /hpf Hyaline Casts 8 H (0-2) /lpf Urine Mucus Many H (None) /hpf Critical Care Time Critical Care Time: Yes Total Critical Care Time: 35 Disposition Clinical Impression: Lung cancer, Hypotension, COPD (chronic obstructive pulmonary disease), Pneumonia Disposition: ADMITTED IP TO THIS HOSP Condition: Stable Is patient prescribed a controlled substance at d/c from ED?: No Referrals: Nalini Palmer MD [Primary Care Provider] - 1-2 days Time of Disposition: 14:24
[2024-02-10 12:05] LABS: INR 0.9 (<1.2); Partial Thromboplastin Time 24.4 sec (22.0-30.0); Prothrombin Time 10.4 sec (10.0-12.5)
--- NOTE | 2024-02-10 12:14 | XR ---
EXAMINATION TYPE: XR chest 1V portable DATE OF EXAM: 02/10/2024 COMPARISON: 11/11/2023 CLINICAL INDICATION: Male, 78 years old with history of altered mental status; TECHNIQUE: Single frontal view of the chest is obtained. FINDINGS: There is a persistent small left effusion and left retrocardiac opacity consistent with pne umonia or atelectasis. The right lung is clear. Heart and pulmonary vasculature are normal. There is no pneumothorax. The osseous structures are intact. IMPRESSION: Left lower lobe infiltrate and small effusion as described above. [facility], , 02/10/2024 12:12 PM
[2024-02-10 13:05] LABS: Glucose,Whole Blood 77 mg/dL (70-110)
[2024-02-10 13:39] LABS: Appearance,Urine Clear (Clear); Color,Urine Yellow; Protein,Urine 1+ (Negative); Specific Gravity,Urine 1.022 (1.001-1.035)
[2024-02-10 13:40] LABS: Bilirubin,Urine Negative (Negative); Blood,Urine Negative (Negative); Glucose,Urine (UA) Negative (Negative); Hyaline Casts,Urine 8 /lpf (0-2); Ketones,Urine Negative (Negative); Leukocyte Esterase,Urine Negative (Negative); Mucus,Urine Many /hpf; Nitrite,Urine Negative (Negative); RBC,Urine <1 /hpf (0-5); Squamous Epithelial Cell,Urine <1 /hpf (0-4); Urobilinogen,Urine <2.0 mg/dL (<2.0); WBC,Urine 10 /hpf (0-5)
--- NOTE | 2024-02-10 14:18 | CT ---
EXAMINATION TYPE: CT brain wo con CT DLP: 1095.9 mGycm, Automated exposure control for dose reduction was used. DATE OF EXAM: 02/10/2024 2:12 PM COMPARISON: CT brain 09/24/2023, 11/09/2023, 09/08/2023 MRI brain 05/31/2023, 01/19/2023 CLINICAL INDICATION:Male, 78 years old with history of Altered mental status, AMS TECHNIQUE: Brain: Multiple axial CT images of the brain were obtained without IV contrast. . Coronal and sagitta l reformats reviewed. FINDINGS: Brain: Extra-axial spaces: No abnormal extra-axial fluid collections. Ventricular system: Within normal limits Cerebral parenchyma: Cerebral atrophy. No acute intraparenchymal hemorrhage or mass effect. The dent -white junction is well differentiated. Scattered hypoattenuating areas are seen within the periventr icular white matter. Cerebellum: Unremarkable. Mass effect: No evidence of midline shift. Intracranial vasculature: Atherosclerotic calcifications of the intracranial vessels. Soft tissues: Normal. Calvarium/osseous structures: No depressed skull fracture. Paranasal sinuses and mastoid air cells: Clear Visualized orbits: Bilateral aphakia IMPRESSION: 1. No acute intracranial process. 2. Nonspecific white matter changes, likely secondary to chronic small vessel ischemic disease. [facility], , 02/10/2024 2:16 PM
[2024-02-10] MEDS ORDERED: NALOXONE 0.4 MG/ML 1 ML VIAL IV PRN (14:20)
[2024-02-10] MEDS ORDERED: ACETAMINOPHEN TAB 325 MG TAB PO PRN (14:20)
[2024-02-10] MEDS: SODIUM CHLORIDE 0.9% 1,000 ML IV SCH (15:12)
[2024-02-10] MEDS: AZITHROMYCIN 500 MG in SODIUM CHLORIDE 0.9% 250 ML IVPB STA (15:12)
[2024-02-10] MEDS: IPRATROPIUM-ALBUTEROL 3 ML NEB INHALATION SCH (15:22)
--- NOTE | 2024-02-10 16:52 | P.CNPUL ---
History of Present Illness Consult date: 02/10/24 Requesting physician: Davonte Park Reason for consult: hypoxemia, abnormal CXR/CT Chief complaint: Altered mental status, hypoxemia, hypotension History of present illness: This is a 78-year-old male patient with a history of hypertension hyperlipidemia, mild intermittent bronchial asthma, former smoker on home oxygen at 3 L. 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 He had undergone chemotherapy and radiation through July 2023. He is most recently on dabrafenib Tafinlar. He was at his oncologist office Dr. Monica Leigh, and was found to be hypotensive, hallucinating and hypotensive. He was referred here to the emergency room. Chest x-ray shows left lower lobe infiltrate and small effusion. CT scan of the brain reveals no acute intracranial process. White count 11.5. Hemoglobin 11.9. Platelets 253. INR 0.9. Sodium 134. Potassium 4.8. Bicarb 31. BUN 17. Creatinine 1.05. Glucose 83. He is seen today in the emergency department. He is currently resting on a stretcher. Awake and alert. His is at the bedside who provides most of the information. He is currently on BiPAP 10/5 and 50% FiO2 with O2 saturations in the 90s. He is receiving normal saline at 75 mL/h. Review of Systems ROS unobtainable: due to mental status Past Medical History Past Medical History: Asthma, Cancer, COPD, GERD/Reflux, Hyperlipidemia, Hypertension, Pneumonia, Prostate Disorder, Rheumatoid Arthritis (RA), Sleep Apnea/CPAP/BIPAP Additional Past Medical History / Comment(s): cardiomyopathy, anemia, lung cancer diagnosed 12/29/2022 (last chemo finished 08/21/23, last radiation 06/2023) History of Any Multi-Drug Resistant Organisms: None Reported Past Surgical History: Hernia Repair, Joint Replacement, Orthopedic Surgery Additional Past Surgical History / Comment(s): colonoscopy,EGD, Antonina hip replacments, antonina fx ankles, screws removed from rt ankle Past Anesthesia/Blood Transfusion Reactions: No Reported Reaction Past Psychological History: Depression Smoking Status: Former smoker Past Alcohol Use History: Occasional Past Drug Use History: None Reported Medications and Allergies Home Medications Medication Instructions Recorded Confirmed Type Pramipexole Di-HCl [Mirapex] 1.5 mg PO BID@0800,199901/03/14 02/10/24 History allopurinoL [Zyloprim] 100 mg PO HS@199901/03/14 02/10/24 History Albuterol Sulfate [Albuterol 2 puff INHALATION RT-Q4H PRN 04/15/23 02/10/24 History Sulfate Hfa] Ergocalciferol (Vitamin D2) 1,250 mcg PO Q14D 04/15/23 02/10/24 History [Drisdol (50,000 Iu)] Ferrous Sulfate [Iron (65 MG 975 mg PO DAILY@1400 04/15/23 02/10/24 History Elemental)] Fluticasone Propion/Salmeterol 2 puff INHALATION RT-BID 04/15/23 02/10/24 History [Advair 250-50 Diskus] Montelukast [Singulair] 10 mg PO HS@199904/15/23 02/10/24 History Tamsulosin [Flomax] 0.4 mg PO DAILY@0804/15/23 02/10/24 History Albuterol Nebulized [Ventolin 2.5 mg INHALATION RT-BID 09/08/23 02/10/24 History Nebulized] Benralizumab [Fasenra] 30 mg SQ Q56D 09/08/23 02/10/24 History Calcium Carbonate [Calcium] 600 mg PO BID@1400,199909/08/23 02/10/24 History Cholecalciferol [Vitamin D3 (10 10 mcg PO BID@1399,199909/08/23 02/10/24 History Mcg = 400 Iu)] Docusate Sodium 250 mg PO BID@0800,1400 09/08/23 02/10/24 History Omeprazole [PriLOSEC] 40 mg PO DAILY@0800 09/08/23 02/10/24 History Zoledronic Acid [Zometa] 4 mg IV Q90D 09/08/23 02/10/24 History Magnesium 250 mg PO DAILY@0800 09/25/23 02/10/24 History Ondansetron Odt [Zofran ODT] 4 mg PO DAILY PRN 09/25/23 02/10/24 History HYDROcodone/APAP 10-325MG [[place] 1 tab PO Q6H PRN 11/08/23 02/10/24 History 10-325] Morphine Sulfate ER [Ms Contin] 30 mg PO BID 11/08/23 02/10/24 History Rosuvastatin Calcium [Crestor] 40 mg PO DAILY@0800 11/08/23 02/10/24 History Dabrafenib (Tafinlar) 50mg Cap 50 mg PO BID 01/07/24 02/10/24 History Mirtazapine [Remeron] 15 mg PO HS@2000 01/07/24 02/10/24 History Trametinib Dimethyl Sulfoxide 0.5 mg PO BID 01/07/24 02/10/24 History [Mekinist] Metoprolol Succinate (ER) [Toprol 25 mg PO DAILY #30 tab 01/11/24 02/10/24 Rx XL] Furosemide [Lasix] 40 mg PO DAILY 02/10/24 02/10/24 History Megestrol [Megace] 400 mg PO TID PRN 02/10/24 02/10/24 History Allergies Allergy/AdvReac Type Severity Reaction Status Date / Time No Known Allergies Allergy Verified 02/10/24 13:13 Physical Exam Vitals: Vital Signs Temp Pulse Resp BP Pulse Ox FiO2 02/10/24 15:31 90 02/10/24 15:23 96 02/10/24 15:20 50 02/10/24 14:18 60 02/10/24 12:55 99.4 F 113 H 23 113/72 99 02/10/24 11:34 80 02/10/24 11:32 80 02/10/24 11:31 80 02/10/24 11:03 71 18 107/58 85 L 02/10/24 10:49 90 92 L 02/10/24 10:39 98.8 F 104 H 20 101/61 88 L Intake and Output 02/10/24 02/10/24 02/10/24 06:59 14:59 22:59 Other: Weight 74.389 kg Results - Laboratory Findings CBC and BMP: 02/10/24 11:27 02/10/24 11:27 PT/INR, D-dimer PT 10.4 sec (10.0-12.5) 02/10/24 11:27 INR 0.9 (<1.2) 02/10/24 11:27 Abnormal lab findings: Abnormal Labs 02/10/24 02/10/2424 11:27 11:27 11:27 WBC 11.5 H RBC 3.79 L Hgb 11.9 L D Hct 37.9 L RDW 15.9 H Neutrophils # 10.5 H Lymphocytes # 0.5 L VBG pCO2 56 H VBG HCO3 32 H Sodium 134 L Carbon Dioxide 31 H Plasma Lactic Acid Ryan Alkaline Phosphatase 129 H Urine Protein Urine WBC Hyaline Casts Urine Mucus 02/10/24 02/10/24 11:27 13:21 WBC RBC Hgb Hct RDW Neutrophils # Lymphocytes # VBG pCO2 VBG HCO3 Sodium Carbon Dioxide Plasma Lactic Acid Yran 2.4 H* Alkaline Phosphatase Urine Protein 1+ H Urine WBC 10 H Hyaline Casts 8 H Urine Mucus Many H - Diagnostic Findings Chest x-ray: image reviewed Assessment and Plan Assessment: Altered mental status with hallucinations possibly related to hypoxemia and hypotension Acute hypoxemic respiratory failure requiring BiPAP support History of stage IV non-small cell lung cancer Chronic anemia Hypertension Hyperlipidemia Obstructive sleep apnea Chronic obstructive pulmonary disease Former smoker Plan: The patient was seen and evaluated Chest x-ray, labs and medications reviewed Continue on BiPAP support for now Titrate the FiO2 as tolerated Continue DuoNeb inhalations Add Symbicort Continue fluid resuscitation We will continue to follow and make further recommendations based on his cl inical status I have personally seen and examined the patient, performed the documentation and the assessment and plan as written. Number of minutes spent on the visit: 20 Dictation was produced using [employer] dictation software. Please excuse any grammatical, word or spelling errors.
[2024-02-10] MEDS: SYMBICORT 160-4.5 MCG INHALER INHALATION SCH (20:23)
--- NOTE | 2024-02-11 10:28 | P.PN ---
Subjective Progress Note Date: 02/11/24 Principal diagnosis: Shortness of breath. This is a 78-year-old male patient with a history of hypertension hyperlipidemia, mild intermittent bronchial asthma, former smoker on home oxygen at 3 L. 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 He had undergone chemotherapy and radiation through July 2023. He is most recently on dabrafenib Tafinlar. He was at his oncologist office Dr. Monica Leigh, and was found to be hypotensive, hallucinating and hypotensive. [facility] Chest x-ray shows left lower lobe infiltrate and small effusion. CT scan of the brain reveals no acute intracranial process. White count 11.5. Hemoglobin 11.9. Platelets 253. INR 0.9. Sodium 134. Potassium 4.8. Bicarb 31. BUN 17. Creatinine 1.05. Glucose 83. He is seen today in the emergency department. He is currently resting on a stretcher. Awake and alert. His is at the bedside who provides most of the information. He is currently on BiPAP 10/5 and 50% FiO2 with O2 saturations in the 90s. He is receiving normal saline at 75 mL/h. Progress note dated February 11, 2024. 78-year-old male seen in consultation yesterday. Please see the note above. He has a history of benign essential hypertension, hyperlipidemia, mild intermittent asthma, previous tobacco use, as well as a diagnosis of stage IV metastatic adenocarcinoma of the lung, with metastasis to the liver and bone. He was diagnosed in December 2022. He has had both chemotherapy, and radiation therapy. When he was recently seen by his medical oncologist, he was found to be hypotensive, and hallucinating. He was sent to the emergency department. The patient is seen this morning, and room 24, in the emergency department. He is on 3 L of oxygen. Saturations are 96%. The patient is getting saline at 75 cc an hour. He did not use BiPAP last night. No new labs today. Viral studies were negative. Objective - Vital Signs Vital signs: Vital Signs Temp 98.6 F 02/11/24 04:00 Pulse 86 02/11/24 08:45 Resp 15 02/11/24 04:00 BP 98/56 02/11/24 04:00 Pulse Ox 93 L 02/11/24 08:45 FiO2 50 02/10/24 15:20 Intake & Output 02/10/24 02/11/24 02/11/24 18:59 06:59 18:59 Weight 74.389 kg - Exam No acute distress, oriented 3. The patient is currently on 3 L with saturations of 96%. HEENT examination is grossly unremarkable. Mucous membranes are moist. No oral lesions. Neck supple. Full range of motion. No adenopathy thyromegaly or neck vein distention. Cardiovascular examination reveals regular rhythm rate. S1-S2 normal. No S3 or S4. No discernible murmur noted. Heart sounds are distant. Lungs reveal scattered bilateral expiratory rhonchi, and a few scattered expiratory wheezes. No crackles. Breath sounds equal bilaterally. Breath sounds are diminished throughout. Abdomen soft bowel sounds are heard. No masses or tenderness. Extremities are intact. No cyanosis clubbing or edema. Skin is without rash or lesion. Neurologic examination is brief but nonfocal. - Labs CBC & Chem 7: 02/10/24 11:27 02/10/24 11:27 Labs: Abnormal Lab Results - Last 24 Hours (Table) 02/10/24 02/10/24 02/10/24 Range/Units 11:27 11:27 11:27 WBC 11.5 H (3.8-10.6) k/uL RBC 3.79 L (4.30-5.90) m/uL Hgb 11.9 L D (13.0-17.5) gm/dL Hct 37.9 L (39.0-53.0) % RDW 15.9 H (11.5-15.5) % Neutrophils # 10.5 H (1.3-7.7) k/uL Lymphocytes # 0.5 L (1.0-4.8) k/uL VBG pCO2 56 H (37-51) mmHg VBG HCO3 32 H (24-28) mmol/L Sodium 134 L (137-145) mmol/L Carbon Dioxide 31 H (22-30) mmol/L Plasma Lactic Acid Ryan (0.7-2.0) mmol/L Alkaline Phosphatase 129 H (38-126) U/L Urine Protein (Negative) Urine WBC (0-5) /hpf Hyaline Casts (0-2) /lpf Urine Mucus (None) /hpf 02/10/24 02/10/24 Range/Units 11:27 13:21 WBC (3.8-10.6) k/uL RBC (4.30-5.90) m/uL Hgb (13.0-17.5) gm/dL Hct (39.0-53.0) % RDW (11.5-15.5) % Neutrophils # (1.3-7.7) k/uL Lymphocytes # (1.0-4.8) k/uL VBG pCO2 (37-51) mmHg VBG HCO3 (24-28) mmol/L Sodium (137-145) mmol/L Carbon Dioxide (22-30) mmol/L Plasma Lactic Acid Ryan 2.4 H* (0.7-2.0) mmol/L Alkaline Phosphatase (38-126) U/L Urine Protein 1+ H (Negative) Urine WBC 10 H (0-5) /hpf Hyaline Casts 8 H (0-2) /lpf Urine Mucus Many H (None) /hpf Assessment and Plan Assessment: Altered mental status with hallucinations possibly related to hypoxemia and hypotension. Acute hypoxemic respiratory failure requiring BiPAP support. History of stage IV non-small cell lung cancer. Chronic anemia. Hypertension. Hyperlipidemia. Obstructive sleep apnea syndrome. Chronic obstructive pulmonary disease. Former smoker. Plan: Plan dated February 11, 2024. The patient was seen today in room 24, in the emergency department. He did not use BiPAP last night. He is currently on 3 L of oxygen. Saturations are 96%. He feels like his breathing is much improved. He is getting saline at 75 cc an hour. The patient is on Symbicort, and DuoNebs. Labs, x-rays, and all medications are reviewed. The patient appears to be doing much better and we will continue to follow the patient, and make recommendations where appropriate. Time with Patient: Less than 30
[2024-02-11] MEDS ORDERED: ONDANSETRON ODT 4 MG TAB PO PRN (11:46)
[2024-02-11] MEDS ORDERED: MEGESTROL 400 MG/10 ML CUP PO PRN (11:46)
--- NOTE | 2024-02-11 11:57 | P.HPIM ---
History of Present Illness Patient reports home 78-year-old male was brought in by the family members because of confusion and hypoxemia. Patient was found to be hypoxemic requiring BiPAP presently patient is only on nasal cannula oxygen 2 to 3 L. Patient satu rations are in 90s apparently. Patient is also hallucinating. Patient does have history of lung cancer on active biologic therapy. Patient was also hypotensive. Patient is presently alert oriented x 3 on admission patient was alert oriented x 1 significant improvement since admission. Patient does have history of COPD used to smoke in the past and used to does have history of sleep apnea for which she uses BiPAP at nighttime. Patient was also evaluated by pulmonary. Chest x-ray showed left lower lobe small pleural effusion which appeared to be chronic. Patient serum creatinine is 1.05. Patient is mildly hyponatremic REVIEW OF SYSTEMS: All other systems are negative except those mentioned in the HPI PHYSICAL EXAMINATION: GENERAL: The patient is alert and oriented x3, not in any acute distress. Thin built male HEENT: Pupils are round and equally reacting to light. EOMI. No scleral icterus. No conjunctival pallor. Normocephalic, atraumatic. No pharyngeal erythema. No thyromegaly. CARDIOVASCULAR: S1 and S2 present. No murmurs, rubs, or gallops. PULMONARY: Chest is clear to auscultation, no wheezing or crackles. ABDOMEN: Soft, nontender, nondistended, normoactive bowel sounds. No palpable organomegaly. MUSCULOSKELETAL: No joint swelling or deformity. EXTREMITIES: No cyanosis, clubbing, or pedal edema. NEUROLOGICAL: Gross neurological examination did not reveal any focal deficits. SKIN: No rashes. Assessment and plan -Altered mental status secondary to metabolic and toxic encephalopathy from mostly medications will use morphine sustained-release [place] and Remeron all of which will be discontinued patient will be on Tylenol for pain. There may be a competent of hypoxemia contributing to history altered mental status which improved at this time patient is presently on nasal cannula oxygen -Acute renal failure: Secondary to dehydration intravascular volume depletion and hypovolemic hyponatremia secondary to that continue with IV fluids at 75 cc/h -Hypovolemic hyponatremia fluids as mentioned above -Acute hypoxic respiratory failure because of COPD exacerbation with a competent of sleep apnea continue with oxygen at this time -Stage IV small non-small cell lung cancer for which patient is allergic agents which will be continued -Chronic anemia -Hypertension -Hyperlipidemia -Gastroesophageal reflux disease -History of rheumatoid arthritis Prevention chronic medical problems patient resumed on appropriate home medications DVT prophylaxis: Lovenox Past Medical History Past Medical History: Asthma, Cancer, COPD, GERD/Reflux, Hyperlipidemia, Hypertension, Pneumonia, Prostate Disorder, Rheumatoid Arthritis (RA), Sleep Apnea/CPAP/BIPAP Additional Past Medical History / Comment(s): cardiomyopathy, anemia, lung cancer diagnosed 12/29/2022 (last chemo finished 08/21/23, last radiation 06/2023) History of Any Multi-Drug Resistant Organisms: None Reported Past Surgical History: Hernia Repair, Joint Replacement, Orthopedic Surgery Additional Past Surgical History / Comment(s): colonoscopy,EGD, Scotty hip replacments, scotty fx ankles, screws removed from rt ankle Past Anesthesia/Blood Transfusion Reactions: No Reported Reaction Past Psychological History: Depression Smoking Status: Former smoker Past Alcohol Use History: Occasional Past Drug Use History: None Reported Medications and Allergies Home Medications Medication Instructions Recorded Confirmed Type Pramipexole Di-HCl [Mirapex] 1.5 mg PO BID@08,199901/03/14 02/10/24 History allopurinoL [Zyloprim] 100 mg PO HS@199901/03/14 02/10/24 History Albuterol Sulfate [Albuterol 2 puff INHALATION RT-Q4H PRN 04/15/23 02/10/24 History Sulfate Hfa] Ergocalciferol (Vitamin D2) 1,250 mcg PO Q14D 04/15/23 02/10/24 History [Drisdol (50,000 Iu)] Ferrous Sulfate [Iron (65 MG 975 mg PO DAILY@1400 04/15/23 02/10/24 History Elemental)] Fluticasone Propion/Salmeterol 2 puff INHALATION RT-BID 04/15/23 02/10/24 History [Advair 250-50 Diskus] Montelukast [Singulair] 10 mg PO HS@199904/15/23 02/10/24 History Tamsulosin [Flomax] 0.4 mg PO DAILY@0800 04/15/23 02/10/24 History Albuterol Nebulized [Ventolin 2.5 mg INHALATION RT-BID 09/08/23 02/10/24 History Nebulized] Benralizumab [Fasenra] 30 mg SQ Q56D 09/08/23 02/10/24 History Calcium Carbonate [Calcium] 600 mg PO BID@1399,199909/08/23 02/10/24 History Cholecalciferol [Vitamin D3 (10 10 mcg PO BID@1400,199909/08/23 02/10/24 History Mcg = 400 Iu)] Docusate Sodium 250 mg PO BID@0800,1400 09/08/23 02/10/24 History Omeprazole [PriLOSEC] 40 mg PO DAILY@0800 09/08/23 02/10/24 History Zoledronic Acid [Zometa] 4 mg IV Q90D 09/08/23 02/10/24 History Magnesium 250 mg PO DAILY@0800 09/25/23 02/10/24 History Ondansetron Odt [Zofran ODT] 4 mg PO DAILY PRN 09/25/23 02/10/24 History HYDROcodone/APAP 10-325MG [[place] 1 tab PO Q6H PRN 11/08/23 02/10/24 History 10-325] Morphine Sulfate ER [Ms Contin] 30 mg PO BID 11/08/23 02/10/24 History Rosuvastatin Calcium [Crestor] 40 mg PO DAILY@0800 11/08/23 02/10/24 History Dabrafenib (Tafinlar) 50mg Cap 50 mg PO BID 01/07/24 02/10/24 History Mirtazapine [Remeron] 15 mg PO HS@199901/07/24 02/10/24 History Trametinib Dimethyl Sulfoxide 0.5 mg PO BID 01/07/24 02/10/24 History [Mekinist] Metoprolol Succinate (ER) [Toprol 25 mg PO DAILY #30 tab 01/11/24 02/10/24 Rx XL] Furosemide [Lasix] 40 mg PO DAILY 02/10/24 02/10/24 History Megestrol [Megace] 400 mg PO TID PRN 02/10/24 02/10/24 History Allergies Allergy/AdvReac Type Severity Reaction Status Date / Time No Known Allergies Allergy Verified 02/10/24 13:13 Physical Exam Vitals: Vital Signs Temp Pulse Resp BP Pulse Ox FiO2 02/11/24 11:21 87 02/11/24 11:12 84 02/11/24 10:27 84 20 115/69 93 L 02/11/24 08:45 86 93 L 02/11/24 08:15 78 02/11/24 08:04 81 02/11/24 04:00 98.6 F 87 15 98/56 95 02/11/24 00:51 88 16 92/59 96 02/10/24 23:52 90 02/10/24 23:41 89 02/10/24 21:02 98.1 F 87 19 103/61 96 02/10/24 20:36 104 H 02/10/24 20:25 94 02/10/24 15:31 90 02/10/24 15:23 96 02/10/24 15:20 50 02/10/24 14:18 60 02/10/24 12:55 99.4 F 113 H 23 113/72 99 Results CBC & Chem 7: 02/10/24 11:27 02/10/24 11:27 Labs: Abnormal Lab Results - Last 24 Hours (Table) 02/10/24 02/10/24 Range/Units 11:27 13:21 Plasma Lactic Acid Ryan 2.4 H* (0.7-2.0) mmol/L Urine Protein 1+ H (Negative) Urine WBC 10 H (0-5) /hpf Hyaline Casts 8 H (0-2) /lpf Urine Mucus Many H (None) /hpf
[2024-02-11] MEDS: CALCIUM CARBONATE 500 MG CHEWABLE PO SCH (13:54)
[2024-02-11] MEDS: METOPROLOL SUCCINATE (ER) 25 MG TAB.ER.24H PO SCH (13:54)
--- NOTE | 2024-02-11 19:30 | P.CONS ---
History of Present Illness - Reason for Consult Consult date: 02/11/24 Hypotension, confusion. Metastatic lung cancer - History of Present Illness The patient is a 78-year-old white male patient, well-known to our service. He is followed by Dr. Monica Leigh in the outpatient setting. The patient was diagnosed with lung malignancy in 01/20, presenting with a left-sided lung mass, metastatic lesion in the sternum, as well as evidence of other areas of skeletal metastasis on subsequent PET scan. 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 The patient was initially initiated on treatment with [employer]-16, carboplatin, and Tecentriq. His biomarker testing subsequently came back showing BRAF V600E mutation, which is typically found in non-small cell lung cancer. Other mutations usually seen in the small cell cancer were not noted. It was therefore determined that the predominant histology was adenocarcinoma. The patient was changed to carboplatin/Alimta/IO. However this had to be discontinued due to poor tolerance. He was switched to BRAF tageted combination with Encorafenib/Bimetinib. He had several issues on this combination with tolerance, including problems with recurrent infections. Due to this he had fr equent dose delays, as well as dose interruptions. He was ultimately switched to Dabrafenib/Trametinib in 12/21. The patient had an admission last month, with weakness, decreased appetite, and hypotension. The week prior to this admission, he was complaining of chest pressure and shortness of breath, due to which a CTA was done that was negative for PE. Dopplers were also negative. Visit in the office on 02/10/2024. He was found to be hypotensive and quite weak. He was also confused. Apparently symptoms had been developing over the last couple of days. The was also coughing more than usual, with expectoration of clear to dark phlegm. He was therefore sent into the emergency room, where he was found to be hypoxic. CT of the head was negative. Chest x-ray showed possible left-sided pneumonia and small pleural effusion. He was therefore admitted for further management. At the time of my evaluation, the patient stated that he felt much better in terms of overall strength and respiratory status. However he was still somewhat confused with difficulty in recalling the month, as well as his medical history accurately. For Example did not recall being in the office yesterday Review of Systems Constitutional: Reports fatigue, Reports poor appetite, Reports weakness, Reports weight loss Eyes: denies blurred vision, denies pain Ears: deny: decreased hearing, ear discharge, earache, tinnitus Ears, nose, mouth and throat: Denies headache, Denies sore throat Cardiovascular: Reports shortness of breath Respiratory: Reports cough with sputum, Reports dyspnea Gastrointestinal: Denies abdominal pain, Denies diarrhea, Denies nausea, Denies vomiting Genitourinary: Reports as per HPI Musculoskeletal: Reports muscle weakness Integumentary: Denies pruritus, Denies rash Neurological: Reports as per HPI, Reports confusion, Reports weakness Psychiatric: Reports confusion Endocrine: Reports fatigue Hematologic/Lymphatic: Reports as per HPI Past Medical History Past Medical History: Asthma, Cancer, COPD, GERD/Reflux, Hyperlipidemia, Hypertension, Pneumonia, Prostate Disorder, Rheumatoid Arthritis (RA), Sleep Apnea/CPAP/BIPAP Additional Past Medical History / Comment(s): cardiomyopathy, anemia, lung cancer diagnosed 12/29/2022 (last chemo finished 08/21/23, last radiation 06/2023) History of Any Multi-Drug Resistant Organisms: None Reported Past Surgical History: Hernia Repair, Joint Replacement, Orthopedic Surgery Additional Past Surgical History / Comment(s): colonoscopy,EGD, Scotty hip replacments, scotty fx ankles, screws removed from rt ankle Past Anesthesia/Blood Transfusion Reactions: No Reported Reaction Smoking Status: Former smoker - Past Family History Father Family Medical History: COPD Medications and Allergies Home Medications Medication Instructions Recorded Confirmed Type Pramipexole Di-HCl [Mirapex] 1.5 mg PO BID@0800,199901/03/14 02/10/24 History allopurinoL [Zyloprim] 100 mg PO HS@199901/03/14 02/10/24 History Albuterol Sulfate [Albuterol 2 puff INHALATION RT-Q4H PRN 04/15/23 02/10/24 History Sulfate Hfa] Ergocalciferol (Vitamin D2) 1,250 mcg PO Q14D 04/15/23 02/10/24 History [Drisdol (50,000 Iu)] Ferrous Sulfate [Iron (65 MG 975 mg PO DAILY@1400 04/15/23 02/10/24 History Elemental)] Fluticasone Propion/Salmeterol 2 puff INHALATION RT-BID 04/15/23 02/10/24 History [Advair 250-50 Diskus] Montelukast [Singulair] 10 mg PO HS@199904/15/23 02/10/24 History Tamsulosin [Flomax] 0.4 mg PO DAILY@0800 04/15/23 02/10/24 History Albuterol Nebulized [Ventolin 2.5 mg INHALATION RT-BID 09/08/23 02/10/24 History Nebulized] Benralizumab [Fasenra] 30 mg SQ Q56D 09/08/23 02/10/24 History Calcium Carbonate [Calcium] 600 mg PO BID@1400,199909/08/23 02/10/24 History Cholecalciferol [Vitamin D3 (10 10 mcg PO BID@1400,199909/08/23 02/10/24 Histor y Mcg = 400 Iu)] Docusate Sodium 250 mg PO BID@0800,1400 09/08/23 02/10/24 History Omeprazole [PriLOSEC] 40 mg PO DAILY@0800 09/08/23 02/10/24 History Zoledronic Acid [Zometa] 4 mg IV Q90D 09/08/23 02/10/24 History Magnesium 250 mg PO DAILY@0800 09/25/23 02/10/24 History Ondansetron Odt [Zofran ODT] 4 mg PO DAILY PRN 09/25/23 02/10/24 History HYDROcodone/APAP 10-325MG [[place] 1 tab PO Q6H PRN 11/08/23 02/10/24 History 10-325] Morphine Sulfate ER [Ms Contin] 30 mg PO BID 11/08/23 02/10/24 History Rosuvastatin Calcium [Crestor] 40 mg PO DAILY@0800 11/08/23 02/10/24 History Dabrafenib (Tafinlar) 50mg Cap 50 mg PO BID 01/07/24 02/10/24 History Mirtazapine [Remeron] 15 mg PO HS@199901/07/24 02/10/24 History Trametinib Dimethyl Sulfoxide 0.5 mg PO BID 01/07/24 02/10/24 History [Mekinist] Metoprolol Succinate (ER) [Toprol 25 mg PO DAILY #30 tab 01/11/24 02/10/24 Rx XL] Furosemide [Lasix] 40 mg PO DAILY 02/10/24 02/10/24 History Megestrol [Megace] 400 mg PO TID PRN 02/10/24 02/10/24 History Allergies Allergy/AdvReac Type Severity Reaction Status Date / Time No Known Allergies Allergy Verified 02/10/24 13:13 Physical Exam Vitals: Vital Signs Temp Pulse Pulse Resp BP BP Pulse Ox 02/11/24 16:36 98 F 76 20 112/55 99 02/11/24 15:38 98.4 F 87 19 118/63 98 02/11/24 15:29 98.4 F 87 19 118/63 98 02/11/24 14:53 82 02/11/24 14:51 84 17 108/64 99 02/11/24 14:43 84 02/11/24 13:50 80 18 108/64 95 02/11/24 11:21 87 02/11/24 11:12 84 02/11/24 10:27 84 20 115/69 93 L 02/11/24 08:45 86 93 L 02/11/24 08:15 78 02/11/24 08:04 81 02/11/24 04:00 98.6 F 87 15 98/56 95 02/11/24 00:51 88 16 92/59 96 02/10/24 23:52 90 02/10/24 23:41 89 02/10/24 21:02 98.1 F 87 19 103/61 96 02/10/24 20:36 104 H 02/10/24 20:25 94 Intake and Output 02/11/24 02/11/24 02/11/24 06:59 14:59 22:59 Intake Total 765 Balance 765 Intake: Intake, IV Titration 225 Amount Sodium Chloride 0.9% 1, 225 000 ml @ 75 mls/hr IV . [id number] [facility] Rx#:[id number] Oral 540 Other: # Voids 1 Weight 74.389 kg - Constitutional General appearance: no acute distress - EENT Eyes: EOMI, PERRLA ENT: hearing grossly normal, normal oropharynx - Neck Thyroid: bilateral: normal size - Respiratory Respiratory: left: diminished (Left base) - Cardiovascular Rhythm: regular Heart sounds: normal: S1, S2 - Gastrointestinal General gastrointestinal: organomegaly, soft - Integumentary Integumentary: normal - Neurologic Neurologic: CNII-XII intact - Musculoskeletal Musculoskeletal: generalized weakness, strength equal bilaterally - Psychiatric Psychiatric: A&O x's 3 Results CBC & Chem 7: 02/10/24 11:27 02/10/24 11:27 Chest x-ray: report reviewed CT Scan - head: report reviewed Assessment and Plan (1) COPD (chronic obstructive pulmonary disease) Narrative/Plan: The patient's presenting symptoms are currently felt to be most likely due to acute respiratory failure, due to COPD exacerbation, with possible community- acquired pneumonia. He is on appropriate treatment for the same with steroids, breathing treatments, antibiotic and oxygen support. He feels markedly improved subjectively although confusion still persists. -Defer to admitting service and pulmonary medicine for ongoing management. Will continue to monitor. If his confusion persists despite resolution of his respiratory issues, we would need to consider additional brain imaging. Current Visit: Yes Status: Acute Priority: High Code(s): J44.9 - CHRONIC OBSTRUCTIVE PULMONARY DISEASE, UNSPECIFIED SNOMED Code(s): 75151102 (2) Lung cancer Narrative/Plan: Diagnostic and therapeutic circumstances as described. The patient's tolerance of his current regimen is better than his previous targeted regimen, but he is still continuing to have issues, as described in the HPI. As his current issues appear to be due to different etiology, the plan would be to resume his regimen at the time of discharge. Hold while in hospital Current Visit: Yes Status: Acute Priority: High Code(s): C34.90 - MALIGNANT NEOPLASM OF UNSP PART OF UNSP BRONCHUS OR LUNG SNOMED Code(s): 603924570
[2024-02-11] MEDS: MONTELUKAST 10 MG TAB PO SCH (20:39)
[2024-02-11] MEDS: allopurinoL 100 MG TAB PO SCH (20:39)
[2024-02-11] MEDS: PRAMIPEXOLE 1 MG TAB PO SCH (20:39)
[2024-02-11] MEDS ORDERED: TRAMETINIB DIMETHYL SULFOXIDE 0.5 MG PO SCH (21:00)
[2024-02-11] MEDS ORDERED: DABRAFENIB PO SCH (21:00)
[2024-02-12 07:35] LABS: ALT 10 U/L (4-49); AST 22 U/L (17-59); African American GFR (CKD) >90 (>60 ml/min/1.73 sqM); Alkaline Phosphatase 106 U/L (38-126); Anion Gap 4 mmol/L; Blood Urea Nitrogen 15 mg/dL (9-20); Calcium 8.6 mg/dL (8.4-10.2); Carbon Dioxide 28 mmol/L (22-30); Chloride 103 mmol/L (98-107); Glucose 90 mg/dL (74-99); Non-African American GFR(CKD) 85 (>60 ml/min/1.73 sqM); Potassium 4.4 mmol/L (3.5-5.1); Sodium 135 mmol/L (137-145); Total Bilirubin 0.4 mg/dL (0.2-1.3); Total Protein 6.4 g/dL (6.3-8.2)
[2024-02-12] MEDS: TAMSULOSIN 0.4 MG CAP.ER.24H PO SCH (09:05)
[2024-02-12] MEDS: MAGNESIUM OXIDE 400 MG TAB PO SCH (09:05)
[2024-02-12] MEDS: ENOXAPARIN 40 MG/0.4 ML SYRINGE SQ SCH (09:05)
[2024-02-12] MEDS: ATORVASTATIN 80 MG TAB PO SCH (09:05)
--- NOTE | 2024-02-12 11:21 | P.PN ---
Subjective Progress Note Date: 02/12/24 Principal diagnosis: Shortness of breath. This is a 78-year-old male patient with a history of hypertension hyperlipidemia, mild intermittent bronchial asthma, former smoker on home oxygen at 3 L. 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 He had undergone chemotherapy and radiation through July 2023. He is most recently on dabrafenib Tafinlar. He was at his oncologist office Dr. Monica Leigh, and was found to be hypotensive, hallucinating and hypotensive. He was referred here to the [facility] room. Chest x-ray shows left lower lobe infiltrate and small effusion. CT scan of the brain reveals no acute intracranial process. White count 11.5. Hemoglobin 11.9. Platelets 253. INR 0.9. Sodium 134. Potassium 4.8. Bicarb 31. BUN 17. Creatinine 1.05. Glucose 83. He is seen today in the emergency department. He is currently resting on a stretcher. Awake and alert. His is at the bedside who provides most of the information. He is currently on BiPAP 10/5 and 50% FiO2 with O2 saturations in the 90s. He is receiving normal saline at 75 mL/h. Progress note dated February 11, 2024. 78-year-old male seen in consultation yesterday. Please see the note above. He has a history of benign essential hypertension, hyperlipidemia, mild intermittent asthma, previous tobacco use, as well as a diagnosis of stage IV metastatic adenocarcinoma of the lung, with metastasis to the liver and bone. He was diagnosed in December 2022. He has had both chemotherapy, and radiation therapy. When he was recently seen by his medical oncologist, he was found to be hypotensive, and hallucinating. He was sent to the emergency department. The patient is seen this morning, and room 24, in the emergency department. He is on 3 L of oxygen. Saturations are 96%. The patient is getting saline at 75 cc an hour. He did not use BiPAP last night. No new labs today. Viral studies were negative. Progress note dated February 12, 2024. 78-year-old male seen today in room 358. He is sitting in bed, very comfortable. He is awake and alert. No respiratory distress. He is on 3 L of nasal cannula. No IV fluids. He has not had to use BiPAP. Current labs include sodium 135, potassium 4.4, chlorides 103, CO2 28, BUN 15, and creatinine 0.81. Albumin is 3. N-terminal proBNP from yesterday is 902. Viral studies were negative. Blood cultures are currently negative. Objective - Vital Signs Vital signs: Vital Signs Temp 97.5 F L 02/12/24 08:00 Pulse 72 02/12/24 09:29 Resp 20 02/12/24 08:00 BP 126/61 02/12/24 08:00 Pulse Ox 96 02/12/24 08:00 FiO2 50 02/10/24 15:20 Intake & Output 02/11/24 02/12/24 02/12/24 18:59 06:59 18:59 Intake Total 765 540 Balance 765 540 Weight 74.389 kg 76.3 kg Intake: Intake, IV Titration 225 Amount Sodium Chloride 0.9% 1, 225 000 ml @ 75 mls/hr IV . [id number] [facility] Rx#:[id number] Oral 540 540 Other: Voiding Method Toilet # Voids 1 1 1 - Exam No acute distress, oriented 3. The patient is currently on 3 L with saturations of 96%. HEENT examination is grossly unremarkable. Mucous membranes are moist. No oral lesions. Neck supple. Full range of motion. No adenopathy thyromegaly or neck vein distention. Cardiovascular examination reveals regular rhythm rate. S1-S2 normal. No S3 or S4. No discernible murmur noted. Heart sounds are distant. Lungs reveal scattered bilateral expiratory rhonchi, and a few scattered expiratory wheezes. No crackles. Breath sounds equal bilaterally. Breath sounds are diminished throughout. Abdomen soft bowel sounds are heard. No masses or tenderness. Extremities are intact. No cyanosis clubbing or edema. Skin is without rash or lesion. Neurologic examination is brief but nonfocal. - Labs CBC & Chem 7: 02/10/24 11:27 02/12/24 06:24 Labs: Abnormal Lab Results - Last 24 Hours (Table) 02/12/24 Range/Units 06:24 Sodium 135 L (137-145) mmol/L Albumin 3.0 L (3.5-5.0) g/dL Microbiology - Last 24 Hours (Table) 02/10/24 15:19 Blood Culture - Preliminary Blood 02/10/24 15:19 Blood Culture - Preliminary Blood Assessment and Plan Assessment: Altered mental status with hallucinations possibly related to hypoxemia and hypotension. Acute hypoxemic respiratory failure requiring BiPAP support, improved. History of stage IV non-small cell lung cancer. Chronic anemia. Hypertension. Hyperlipidemia. Obstructive sleep apnea syndrome. Chronic obstructive pulmonary disease. Former smoker. Plan: Plan dated February 11, 2024. The patient was seen today in room 24, in the emergency department. He did not use BiPAP last night. He is currently on 3 L of oxygen. Saturations are 96%. He feels like his breathing is much improved. He is getting saline at 75 cc an hour. The patient is on Symbicort, and DuoNebs. Labs, x-rays, and all medications are reviewed. The patient appears to be doing much better and we will continue to follow the patient, and make recommendations where appropriate. Plan dated February 12, 2024. The patient is doing much better. The patient denies any significant shortness of breath. He is sitting in bed, and is currently in no distress. He is awake and alert. He did not require BiPAP last night. He is not receiving any IV fluids. He is on 3 L by nasal cannula. Labs, x-rays, and medications are reviewed. The patient continues on Symbicort, as well as albuterol sulfate and ipratropium bromide. Prognosis is guarded. We will continue to follow the patient, make recommendations. Time with Patient: Less than 30
[2024-02-12] MEDS: guaiFENesin 600 MG TABLET.ER PO SCH (13:01)
[2024-02-12] MEDS: LORATADINE 10 MG TAB PO SCH (13:01)
--- NOTE | 2024-02-12 19:06 | P.PN ---
Subjective Progress Note Date: 02/12/24 Patient reports home 78-year-old male was brought in by the family members because of confusion and hypoxemia. Patient was found to be hypoxemic requiring BiPAP presently patient is only on nasal cannula oxygen 2 to 3 L. Patient saturations are in 90s apparently. Patient is also hallucinating. Patient does have history of lung cancer on active biologic therapy. Patient was also hypotensive. Patient is presently alert oriented x 3 on admission patient was alert oriented x 1 significant improvement since admission. Patient does have history of COPD used to smoke in the past and used to does have history of sleep apnea for which she uses BiPAP at nighttime. Patient was also evaluated by pulmonary. Chest x-ray showed left lower lobe small pleural effusion which appeared to be chronic. Patient serum creatinine is 1.05. Patient is mildly hyponatremic 02/12/2024 Patient is evaluated today in follow up on the medical floor with at the bedside. He is less confused. He has been weaned off the BiPAP and was not wearing it overnight.Does have productive cough and is having difficulty with expectorating. He reports no pain at this time. Continues on normal saline at 75mls/hr Review of Systems Constitutional: Denied any fatigue denied any fever. Cardio vascular: denied any chest pain, palpitations Gastrointestinal: denied any nausea, vomiting, diarrhea Pulmonary: Denied any shortness of breath cough Neurologic denied any new focal deficits All inpatient medications were reviewed and appropriate changes in these medications as dictated in the interval history and assessment and plan. PHYSICAL EXAMINATION: GENERAL: The patient is alert and oriented x3, not in any acute distress. Thin built male HEENT: Pupils are round and equally reacting to light. EOMI. No scleral icterus. No conjunctival pallor. Normocephalic, atraumatic. No pharyngeal erythema. No thyromegaly. CARDIOVASCULAR: S1 and S2 present. No murmurs, rubs, or gallops. PULMONARY: Chest is clear to auscultation, no wheezing or crackles. ABDOMEN: Soft, nontender, nondistended, normoactive bowel sounds. No palpable organomegaly. MUSCULOSKELETAL: No joint swelling or deformity. EXTREMITIES: No cyanosis, clubbing, or pedal edema. NEUROLOGICAL: Gross neurological examination did not reveal any focal deficits. SKIN: No rashes. Assessment and plan -Altered mental status secondary to metabolic and toxic encephalopathy from mostly medications will use morphine sustained-release [place] and Remeron all of which will be discontinued patient will be on Tylenol for pain. There may be a competent of hypoxemia contributing to history altered mental status which improved at this time patient is presently on nasal cannula oxygen -Acute renal failure: Secondary to dehydration intravascular volume depletion and hypovolemic hyponatremia secondary to that continue with IV fluids at 75 cc/h -Hypovolemic hyponatremia fluids as mentioned above -Acute hypoxic respiratory failure because of COPD exacerbation with a competent of sleep apnea continue with oxygen at this time -Stage IV small non-small cell lung cancer for which patient is allergic agents which will be continued -Chronic anemia -Hypertension -Hyperlipidemia -Gastroesophageal reflux disease -History of rheumatoid arthritis Prevention chronic medical problems patient resumed on appropriate home medications DVT prophylaxis: Lovenox Patient continues on off drips. He will be started on Mucinex and Claritin for the congestion and cough. He is down to his home oxygen at 3 L. He has been taken off the BiPAP. Patient will be monitored overnight and evaluated physical therapy tomorrow. The impression and plan of care has been dictated by Steph Truong, Nurse Practitioner as directed. Dr. Ray MD I have performed a history and physical examination and medical decision making of this patient, discussed the same with the dictator, and agree with the dictators assessment and plan as written, documented as a scribe. Based on total visit time, I have performed more than 50% of this visit. Objective - Vital Signs Vital signs: Vital Signs Temp 98 F 02/12/24 16:39 Pulse 75 02/12/24 16:39 Resp 20 02/12/24 16:39 BP 101/62 02/12/24 16:39 Pulse Ox 100 02/12/24 16:39 FiO2 50 02/10/24 15:20 Intake & Output 02/12/24 02/12/24 02/13/24 06:59 18:59 06:59 Intake Total 540 358 Balance 540 358 Weight 76.3 kg Intake: Intake, IV Titration 0 Amount Sodium Chloride 0.9% 1, 0 000 ml @ 75 mls/hr IV . [id number] [facility] Rx#:[id number] Oral 540 358 Other: Voiding Method Toilet # Voids 1 3 - Labs CBC & Chem 7: 02/10/24 11:27 02/12/24 06:24 Labs: Abnormal Lab Results - Last 24 Hours (Table) 02/12/24 Range/Units 06:24 Sodium 135 L (137-145) mmol/L Albumin 3.0 L (3.5-5.0) g/dL Microbiology - Last 24 Hours (Table) 02/10/24 15:19 Blood Culture - Preliminary Blood 02/10/24 15:19 Blood Culture - Preliminary Blood Assessment and Plan Time with Patient: Less than 30
[2024-02-13 11:07] VITALS: BMI 23.5
--- NOTE | 2024-02-13 12:52 | P.PN ---
Subjective Progress Note Date: 02/13/24 Principal diagnosis: AMS. Met NSCLC. IN f/u today pt states he feels better, he has been to bathroom with assistance. He is confused to month-but consistently confused. No new c/o on a focused ROS. Objective - Vital Signs Vital signs: Vital Signs Temp 98.1 F 02/13/24 11:01 Pulse 90 02/13/24 11:01 Resp 17 02/13/24 11:01 BP 99/63 02/13/24 11:01 Pulse Ox 99 02/13/24 11:01 FiO2 50 02/10/24 15:20 Intake & Output 02/12/24 02/13/24 02/13/24 18:59 06:59 18:59 Intake Total 358 225 130 Balance 358 225 130 Weight 76.4 kg 76.4 kg Intake: IV 225 20 Invasive Line 1 10 Invasive Line 2 10 Sodium Chloride 0.9% 1, 225 000 ml @ 75 mls/hr IV . [id number] [facility] Rx#:[id number] Intake, IV Titration 0 Amount Sodium Chloride 0.9% 1, 0 000 ml @ 75 mls/hr IV . [id number] [facility] Rx#:[id number] Oral 358 110 Other: Voiding Method Toilet Toilet # Voids 3 1 1 - Constitutional General appearance: Present: average body habitus, cooperative, no acute distress - EENT Eyes: Present: anicteric sclerae, EOMI ENT: Present: hearing grossly normal - Respiratory Respiratory: bilateral: CTA - Cardiovascular Rhythm: regular Heart sounds: normal: S1, S2 Abnormal Heart Sounds: Absent: systolic murmur, diastolic murmur, rub, S3 Gallop, S4 Gallop, click, other - Peripheral edema leg Peripheral Edema: bilateral: None - Gastrointestinal General gastrointestinal: Present: normal bowel sounds, soft - Integumentary Integumentary: Present: normal - Neurologic Neurologic: Present: CNII-XII intact - Musculoskeletal Musculoskeletal: Present: generalized weakness, strength equal bilaterally - Psychiatric Psychiatric Comment(s): A&Ox2 Psychiatric: Present: appropriate affect - Labs CBC & Chem 7: 02/10/24 11:27 02/12/24 06:24 Labs: Microbiology - Last 24 Hours (Table) 02/10/24 15:19 Blood Culture - Preliminary Blood 12/13/24 15:19 Blood Culture - Preliminary Blood Assessment and Plan (1) Altered mental status Current Visit: Yes Status: Acute Code(s): R41.82 - ALTERED MENTAL STATUS, UNSPECIFIED SNOMED Code(s): 616757997 (2) Lung cancer Current Visit: Yes Status: Acute Priority: High Code(s): C34.90 - MALIGNANT NEOPLASM OF UNSP PART OF UNSP BRONCHUS OR LUNG SNOMED Code(s): 364738850 Plan: AMS -Suspect acute respiratory failure 2/2 COPD exacerbation, oxygenation worsened by CAP felt to be contributing to AMS. He cont on treatment for the same -Pt states he feels resp status is stable overall today but, confusion still persists. Discussed pt baseline mental status with pt and she reports that pt mental status declined when he started dabrafeneb/tramentinib. He was only on for 3 days, he has been off since admit with no notable improvement in confusion. -MRI brain ordered to rule out metastatic disease to the brain. BRAF + met NSCLC -Diagnostic and therapeutic circumstances as described in consult. -Per pt today, the AMS/confusion started about 3 days after starting targeted agent. Treatment has been held since patient has been in the hospital. No improvements in confusion. -MRI of the brain has been ordered to assess persistent confusion. -Continue to hold targeted agent for now. -Patient will follow-up with Primary Oncologist for any modifications to the treatment plan, if needed. Doctor attests: I performed a history and physical examination of this patient, developed impression and plan of care. Discussed with dictator. I agree with dictators note, documented as a scribe.
--- NOTE | 2024-02-13 13:29 | P.PN ---
Subjective Progress Note Date: 02/13/24 This is a 78-year-old male patient with a history of hypertension hyperlipidemia, mild intermittent bronchial asthma, former smoker on home oxygen at 3 L. 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 He had undergone chemoth erapy and radiation through July 2023. He is most recently on dabrafenib Tafinlar. He was at his oncologist office Dr. Monica Leigh, and was found to be hypotensive, hallucinating and hypotensive. He was referred here to the emergency room. Chest x-ray shows left lower lobe infiltrate and small effusion. CT scan of the brain reveals no acute intracranial process. White count 11.5. Hemoglobin 11.9. Platelets 253. INR 0.9. Sodium 134. Potassium 4.8. Bicarb 31. BUN 17. Creatinine 1.05. Glucose 83. He is seen today in the emergency department. He is currently resting on a stretcher. Awake and alert. His is at the bedside who provides most of the information. He is currently on BiPAP 10/5 and 50% FiO2 with O2 saturations in the 90s. He is receiving normal saline at 75 mL/h. Progress note dated February 11, 2024. 78-year-old male seen in consultation yesterday. Please see the note above. He has a history of benign essential hypertension, hyperlipidemia, mild in termittent asthma, previous tobacco use, as well as a diagnosis of stage IV metastatic adenocarcinoma of the lung, with metastasis to the liver and bone. He was diagnosed in December 2022. He has had both chemotherapy, and radiation therapy. When he was recently seen by his medical oncologist, he was found to be hypotensive, and hallucinating. He was sent to the emergency department. The patient is seen this morning, and room 24, in the emergency department. He is on 3 L of oxygen. Saturations are 96%. The patient is getting saline at 75 cc an hour. He did not use BiPAP last night. No new labs today. Viral studies were negative. Progress note dated February 12, 2024. 78-year-old male seen today in room 358. He is sitting in bed, very comfortable. He is awake and alert. No respiratory distress. He is on 3 L of nasal cannula. No IV fluids. He has not had to use BiPAP. Current labs include sodium 135, potassium 4.4, chlorides 103, CO2 28, BUN 15, and creatinine 0.81. Albumin is 3. N-terminal proBNP from yesterday is 902. Viral studies were negative. Blood cultures are currently negative. On 02/13/2024, the patient is being seen for a follow-up. The patient is doing well. No specific complaints. Mental status is improved and the patient is able to follow commands and answer questions appropriately. He remains on oxygen and is currently on 3 L of O2 nasal cannula with a pulse ox of 99%. As stated earlier, the patient has stage IV metastatic non-small cell lung cancer and the patient was being treated with dabrafenib/trametinib as of 12/22/2023. He is under the care of medical oncology. His blood work from today shows a sodium level of 135, potassium level of 4.4, BUN is 15 with a creatinine of 0.8. The viral screen has been negative. CAT scan of the brain that was done at time of admission on 02/10/2024 showed no acute intracranial abnormalities in the chest x-ray from 02/10/2024 showed a left lower lobe small effusion. Noted the most recent CT of the chest from 02/02/2024 and showed no evidence of any pulmonary embolism, soft tissue mass in the left infrahilar area, resolution of the previous right-sided pleural effusion and the patient has a small left-sided pleural effusion. Lymphadenopathy was not present and the patient had punctate nodular densities bilaterally as discussed. Objective - Vital Signs Vital signs: Vital Signs Temp 98.1 F 02/13/24 08:57 Pulse 75 02/13/24 08:58 Resp 17 02/13/24 08:57 BP 102/59 02/13/24 08:57 Pulse Ox 98 02/13/24 08:57 FiO2 50 02/10/24 15:20 Intake & Output 02/12/24 02/13/24 02/13/24 18:59 06:59 18:59 Intake Total 358 225 130 Balance 358 225 130 Weight 76.4 kg Intake: IV 225 20 Invasive Line 1 10 Invasive Line 2 10 Sodium Chloride 0.9% 1, 225 000 ml @ 75 mls/hr IV . [id number] [facility] Rx#:[id number] Intake, IV Titration 0 Amount Sodium Chloride 0.9% 1, 0 000 ml @ 75 mls/hr IV . [id number] [facility] Rx#:[id number] Oral 358 110 Other: Voiding Method Toilet # Voids 3 1 1 - Exam No acute distress, oriented 3. The patient is currently on 3 L with s aturations of 96%. HEENT examination is grossly unremarkable. Mucous membranes are moist. No oral lesions. Neck supple. Full range of motion. No adenopathy thyromegaly or neck vein distention. Cardiovascular examination reveals regular rhythm rate. S1-S2 normal. No S3 or S4. No discernible murmur noted. Heart sounds are distant. Lungs reveal scattered bilateral expiratory rhonchi, and a few scattered expiratory wheezes. No crackles. Breath sounds equal bilaterally. Breath sounds are diminished throughout. Abdomen soft bowel sounds are heard. No masses or tenderness. Extremities are intact. No cyanosis clubbing or edema. Skin is without rash or lesion. Neurologic examination is brief but nonfocal. - Labs CBC & Chem 7: 02/10/24 11:27 02/12/24 06:24 Labs: Microbiology - Last 24 Hours (Table) 02/10/24 15:19 Blood Culture - Preliminary Blood 02/10/24 15:19 Blood Culture - Preliminary Blood Assessment and Plan Plan: Altered mental status with hallucinations possibly related to hypoxemia and hypotension, recovered and the patient is back to normal mentation Acute hypoxemic respiratory failure requiring BiPAP support, recovered and the patient is currently on 3 L of oxygen by nasal cannula.CAT scan of the chest done on 02/02/2024 showed a soft tissue mass in the left infrahilar area and a small left-sided pleural effusion and resolution of the right-sided pleural effusion. The lymphadenopathy was prominent and increasing and punctate nodular densities are developing bilaterally in the lungs. This has been noted in the right lung base and right midlung and the periphery of the left midlung History of stage IV non-small cell lung cancer. he patient was diagnosed with lung malignancy in 01/20, presenting with a left-sided lung mass, metastatic lesion in the sternum, as well as evidence of other areas of skeletal metastasis on subsequent PET scan. 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 The patient was initially initiated on treatment with [employer]-16, carboplatin, and Tecentriq. His biomarker testing subsequently came back showing BRAF V600E mutation, which is typically found in non-small cell lung cancer. Other mutations usually seen in the small cell cancer were not noted. It was therefore determined that the predominant histology was adenocarcinoma. The patient was changed to carboplatin/Alimta/IO. However this had to be discontinued due to poor tolerance. He was switched to BRAF tageted combination with Encorafenib/Bimetinib. He had several issues on this combination with tolerance, including problems with recurrent infections. Due to this he had frequent dose delays, as well as dose interruptions. He was ultimately switched to Dabrafenib/Trametinib in 12/21. Chronic anemia. Hypertension. Hyperlipidemia. Obstructive sleep apnea syndrome. Chronic obstructive pulmonary disease. Former smoker. Plan: Keep the patient on oxygen 3 Dyspamet nasal cannula and the patient is currently off the BiPAP No signs of any significant respiratory distress Mental status is adequate Continue Symbicort as maintenance and DuoNeb nebulized treatments [id number] Lovenox 40 mg subcu for DVT prophylaxis Monitor mental status Home medications to be resumed Oncology is on the case Will continue to follow
--- NOTE | 2024-02-13 22:25 | P.PN ---
Subjective Progress Note Date: 02/13/24 Patient reports home 78-year-old male was brought in by the family members because of confusion and hypoxemia. Patient was found to be hypoxemic requiring BiPAP presently patient is only on nasal cannula oxygen 2 to 3 L. Patient saturations are in 90s apparently. Patient is also hallucinating. Patient does have history of lung cancer on active biologic therapy. Patient was also hypotensive. Patient is presently alert oriented x 3 on admission patient was alert oriented x 1 significant improvement since admission. Patient does have history of COPD used to smoke in the past and used to does have history of sleep apnea for which she uses BiPAP at nighttime. Patient was also evaluated by pulmonary. Chest x-ray showed left lower lobe small pleural effusion which appeared to be chronic. Patient serum creatinine is 1.05. Patient is mildly hyponatremic 02/12/2024 Patient is evaluated today in follow up on the medical floor with at the bedside. He is less confused. He has been weaned off the BiPAP and was not wearing it overnight.Does have productive cough and is having difficulty with expectorating. He reports no pain at this time. Continues on normal saline at 75mls/hr 02/13/2024 Patient evaluated today in follow-up in the medical floor. He is less confused alert oriented x 3 his feels like he is not quite back to baseline as of yet though. He continues on room air has been weaned off of oxygen support. He does report continued productive cough was started on a combination of Mucinex and Claritin for this. Blood cultures are negative so far electrolytes and renal function are within normal limits. Review of Systems Constitutional: Denied any fatigue denied any fever. Cardio vascular: denied any chest pain, palpitations Gastrointestinal: denied any nausea, vomiting, diarrhea Pulmonary: Denied any shortness of breath cough Neurologic denied any new focal deficits All inpatient medications were reviewed and appropriate changes in these medications as dictated in the interval history and assessment and plan. PHYSICAL EXAMINATION: GENERAL: The patient is alert and oriented x3, not in any acute distress. Thin built male HEENT: Pupils are round and equally reacting to light. EOMI. No scleral icterus. No conjunctival pallor. Normocephalic, atraumatic. No pharyngeal erythema. No thyromegaly. CARDIOVASCULAR: S1 and S2 present. No murmurs, rubs, or gallops. PULMONARY: Chest is clear to auscultation, no wheezing or crackles. ABDOMEN: Soft, nontender, nondistended, normoactive bowel sounds. No palpable organomegaly. MUSCULOSKELETAL: No joint swelling or deformity. EXTREMITIES: No cyanosis, clubbing, or pedal edema. NEUROLOGICAL: Gross neurological examination did not reveal any focal deficits. SKIN: No rashes. Assessment and plan -Altered mental status secondary to metabolic and toxic encephalopathy from mostly medications morphine sustained-release [place] and Remeron all of which will be discontinued patient will be on Tylenol for pain. There may be a competent of hypoxemia contributing to history altered mental status which improved at this time patient has been weaned to room air. -Acute renal failure: Secondary to dehydration intravascular volume depletion and hypovolemic hyponatremia improved and fluids have been discontinued. -Hypovolemic hyponatremia -Acute hypoxic respiratory failure because of COPD exacerbation with a competent of sleep apnea patient has been weaned to room air. 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 -Chronic anemia -Hypertension -Hyperlipidemia -Gastroesophageal reflux disease -History of rheumatoid arthritis Prevention chronic medical problems patient resumed on appropriate home medi cations DVT prophylaxis: Lovenox Patient continues on off drips. He will be started on Mucinex and Claritin for the congestion and cough. He has been weaned to room air. Patient will go for brain MRI tomorrow. Plans for discharge home in the next 24 hours. The impression and plan of care has been dictated by Steph Truong Nurse Practitioner as directed. Dr. Ray MD I have performed a history and physical examination and medical decision making of this patient, discussed the same with the dictator, and agree with the dictators assessment and plan as written, documented as a scribe. Based on total visit time, I have performed more than 50% of this visit. Objective - Vital Signs Vital signs: Vital Signs Temp 98.5 F 02/13/24 19:53 Pulse 80 02/13/24 21:29 Resp 14 02/13/24 19:53 BP 109/69 02/13/24 19:53 Pulse Ox 93 L 02/13/24 19:53 FiO2 50 02/10/24 15:20 Intake & Output 02/13/24 02/13/24 02/14/24 06:59 18:59 06:59 Intake Total 225 150 Balance 225 150 Weight 76.4 kg 76.4 kg Intake: IV 225 40 Invasive Line 1 20 Invasive Line 2 20 Sodium Chloride 0.9% 1, 225 000 ml @ 75 mls/hr IV . [id number] [facility] Rx#:[id number] Oral 110 Other: Voiding Method Toilet Toilet Toilet # Voids 1 1 - Labs CBC & Chem 7: 02/10/24 11:27 02/12/24 06:24 Labs: Microbiology - Last 24 Hours (Table) 02/10/24 15:19 Blood Culture - Preliminary Blood 02/10/24 15:19 Blood Culture - Preliminary Blood Assessment and Plan Time with Patient: Less than 30
--- NOTE | 2024-02-14 17:10 | P.PN ---
Subjective Progress Note Date: 02/14/24 Patient reports home 78-year-old male was brought in by the family members because of confusion and hypoxemia. Patient was found to be hypoxemic requiring BiPAP presently patient is only on nasal cannula oxygen 2 to 3 L. Patient saturations are in 90s apparently. Patient is also hallucinating. Patient does have history of lung cancer on active biologic therapy. Patient was also hypotensive. Patient is presently alert oriented x 3 on admission patient was alert oriented x 1 significant improvement since admission. Patient does have history of COPD used to smoke in the past and used to does have history of sleep apnea for which she uses BiPAP at nighttime. Patient was also evaluated by pulmonary. Chest x-ray showed left lower lobe small pleural effusion which appeared to be chronic. Patient serum creatinine is 1.05. Patient is mildly hyponatremic 02/12/2024 Patient is evaluated today in follow up on the medical floor with at the bedside. He is less confused. He has been weaned off the BiPAP and was not wearing it overnight.Does have productive cough and is having difficulty with expectorating. He reports no pain at this time. Continues on normal saline at 75mls/hr 02/13/2024 Patient evaluated today in follow-up in the medical floor. He is less confused alert oriented x 3 his feels like he is not quite back to baseline as of yet though. He continues on room air has been weaned off of oxygen support. He does report continued productive cough was started on a combination of Mucinex and Claritin for this. Blood cultures are negative so far electrolytes and renal function are within normal limits. 02/14/2024 Patient evaluated today in follow up on the medical floor. Patient alert x 2-3 although doesnt feel he is back to baseline yet. Brain MRI ordered and pending at this time. Chemo agents remain on hold at this time. Oncology following. Review of Systems Constitutional: Denied any fatigue denied any fever. Cardio vascular: denied any chest pain, palpitations Gastrointestinal: denied any nausea, vomiting, diarrhea Pulmonary: Denied any shortness of breath cough Neurologic denied any new focal deficits All inpatient medications were reviewed and appropriate changes in these medications as dictated in the interval history and assessment and plan. PHYSICAL EXAMINATION: GENERAL: The patient is alert and oriented x3, not in any acute distress. Thin built male HEENT: Pupils are round and equally reacting to light. EOMI. No scleral icterus. No conjunctival pallor. Normocephalic, atraumatic. No pharyngeal erythema. No thyromegaly. CARDIOVASCULAR: S1 and S2 present. No murmurs, rubs, or gallops. PULMONARY: Chest is clear to auscultation, no wheezing or crackles. ABDOMEN: Soft, nontender, nondistended, normoactive bowel sounds. No palpable organomegaly. MUSCULOSKELETAL: No joint swelling or deformity. EXTREMITIES: No cyanosis, clubbing, or pedal edema. NEUROLOGICAL: Gross neurological examination did not reveal any focal deficits. SKIN: No rashes. Assessment and plan -Altered mental status secondary to metabolic and toxic encephalopathy from mostly medications morphine sustained-release [place] and Remeron all of which will be discontinued patient will be on Tylenol for pain. There may be a competent of hypoxemia contributing to history altered mental status which improved at this time patient has been weaned to room air. -Acute renal failure: Secondary to dehydration intravascular volume depletion and hypovolemic hyponatremia improved and fluids have been discontinued. -Hypovolemic hyponatremia -Acute hypoxic respiratory failure because of COPD exacerbation with a competent of sleep apnea patient has been weaned to room air. 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 -Chronic anemia -Hypertension -Hyperlipidemia -Gastroesophageal reflux disease -History of rheumatoid arthritis Prevention chronic medical problems patient resumed on appropriate home medications DVT prophylaxis: Lovenox Patient continues on off drips. He will be started on Mucinex and Claritin for the congestion and cough. He has been weaned to room air. Patient will go for brain MRI tomorrow. Plans for discharge home in the next 24 hours. The impression and plan of care has been dictated by Nurse Issac Luna as directed. Dr. Ray MD I have performed a history and physical examination and medical decision making of this patient, discussed the same with the dictator, and agree with the dict ators assessment and plan as written, documented as a scribe. Based on total visit time, I have performed more than 50% of this visit. Objective - Vital Signs Vital signs: Vital Signs Temp 97.7 F 02/14/24 15:13 Pulse 90 02/14/24 15:38 Resp 17 02/14/24 15:13 BP 96/63 02/14/24 15:13 Pulse Ox 93 L 02/14/24 15:13 FiO2 50 02/10/24 15:20 Intake & Output 02/13/24 02/14/24 02/14/24 18:59 06:59 18:59 Intake Total 150 360 Balance 150 360 Weight 76.4 kg 74.7 kg Intake: IV 40 Invasive Line 1 20 Invasive Line 2 20 Oral 110 360 Other: Voiding Method Toilet Toilet Toilet # Voids 1 1 2 - Labs CBC & Chem 7: 02/10/24 11:27 02/12/24 06:24 Labs: Microbiology - Last 24 Hours (Table) 02/10/24 15:19 Blood Culture - Preliminary Blood 02/10/24 15:19 Blood Culture - Preliminary Blood Assessment and Plan Time with Patient: Less than 30
--- NOTE | 2024-02-14 17:42 | MR ---
INDICATION: Patient age:Male; 78 years old; Reason for study: confusion, on Tx for met NSCLC; [facility]. COMPARISON: CT brain 02/10/2024, PET CT 09/22/2023, 06/24/2023, MRI brain 05/31/2023, 01/19/2023. TECHNIQUE: Multi planar, multi sequence imaging was performed through the brain. The patient was then given 7.5 cc of Gadobutrol intravenously and multi planar, T1 fat-saturation images were obtained. FINDINGS: Mild cerebral atrophy with proportional dilation of ventricular system. Diffusion-weighted imaging s hows no evidence of restricted diffusion to suggest acute/subacute infarct. Intracranial arterial brie w voids are maintained. Midline structures show no abnormality. Similar scattered foci of high T2/FLA IR signal intensity are seen within the periventricular and johan white matter. The susceptibility shi ghted images do not reveal any evidence for micro-hemorrhage. After administration of gadolinium, no abnormal enhancement is seen. The bone marrow signal is within normal limits. Paranasal sinuses and mastoid air cells: No significant paranasal sinus disease. Visualized orbits: Bilateral aphakia. IMPRESSION: 1. No evidence of intracranial mass, acute/subacute infarct, or abnormal enhancement. 2. Similar nonspecific white matter changes, likely related to small vessel ischemic disease. [facility], , 02/14/2024 5:40 PM
--- NOTE | 2024-02-14 17:53 | P.PN ---
Subjective Progress Note Date: 02/14/24 This is a 78-year-old male patient with a history of hypertension hyperlipidemia, mild intermittent bronchial asthma, former smoker on home oxygen at 3 L. 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 He had undergone chemoth erapy and radiation through July 2023. He is most recently on dabrafenib Tafinlar. He was at his oncologist office Dr. Monica Leigh, and was found to be hypotensive, hallucinating and hypotensive. He was referred here to the emergency room. Chest x-ray shows left lower lobe infiltrate and small effusion. CT scan of the brain reveals no acute intracranial process. White count 11.5. Hemoglobin 11.9. Platelets 253. INR 0.9. Sodium 134. Potassium 4.8. Bicarb 31. BUN 17. Creatinine 1.05. Glucose 83. He is seen today in the emergency department. He is currently resting on a stretcher. Awake and alert. His is at the bedside who provides most of the information. He is currently on BiPAP 10/5 and 50% FiO2 with O2 saturations in the 90s. He is receiving normal saline at 75 mL/h. Progress note dated February 11, 2024. 78-year-old male seen in consultation yesterday. Please see the note above. He has a history of benign essential hypertension, hyperlipidemia, mild in termittent asthma, previous tobacco use, as well as a diagnosis of stage IV metastatic adenocarcinoma of the lung, with metastasis to the liver and bone. He was diagnosed in December 2022. He has had both chemotherapy, and radiation therapy. When he was recently seen by his medical oncologist, he was found to be hypotensive, and hallucinating. He was sent to the emergency department. The patient is seen this morning, and room 24, in the emergency department. He is on 3 L of oxygen. Saturations are 96%. The patient is getting saline at 75 cc an hour. He did not use BiPAP last night. No new labs today. Viral studies were negative. Progress note dated February 12, 2024. 78-year-old male seen today in room 358. He is sitting in bed, very comfortable. He is awake and alert. No respiratory distress. He is on 3 L of nasal cannula. No IV fluids. He has not had to use BiPAP. Current labs include sodium 135, potassium 4.4, chlorides 103, CO2 28, BUN 15, and creatinine 0.81. Albumin is 3. N-terminal proBNP from yesterday is 902. Viral studies were negative. Blood cultures are currently negative. On 02/13/2024, the patient is being seen for a follow-up. The patient is doing well. No specific complaints. Mental status is improved and the patient is able to follow commands and answer questions appropriately. He remains on oxygen and is currently on 3 L of O2 nasal cannula with a pulse ox of 99%. As stated earlier, the patient has stage IV metastatic non-small cell lung cancer and the patient was being treated with dabrafenib/trametinib as of 12/22/2023. He is under the care of medical oncology. His blood work from today shows a sodium level of 135, potassium level of 4.4, BUN is 15 with a creatinine of 0.8. The viral screen has been negative. CAT scan of the brain that was done at time of admission on 02/10/2024 showed no acute intracranial abnormalities in the chest x-ray from 02/10/2024 showed a left lower lobe small effusion. Noted the most recent CT of the chest from 02/02/2024 and showed no evidence of any pulmonary embolism, soft tissue mass in the left infrahilar area, resolution of the previous right-sided pleural effusion and the patient has a small left-sided pleural effusion. Lymphadenopathy was not present and the patient had punctate nodular densities bilaterally as discussed. On 02/14/2024, the patient is being seen for a follow-up. Patient is currently on room air oxygen. Complaining of extreme exhaustion and fatigue. No chest pain. No shortness of breath. No altered mentation. MRI of the brain is to be done today. Concern for any [employer]NAGER metastases. Otherwise, no other complaints. Sodium levels at 135, BUN is 15 with a creatinine of 0.8, serum bicarb is at 28.. The patient remains on DuoNeb nebulized treatments [id number]. The patient is on Symbicort. Rest of the medications are essentially unchanged. Remains on Lovenox 40 mg subcu for DVT prophylaxis. Objective - Vital Signs Vital signs: Vital Signs Temp 97.7 F 02/14/24 11:14 Pulse 93 02/14/24 11:14 Resp 17 02/14/24 11:14 BP 91/65 02/14/24 11:14 Pulse Ox 97 02/14/24 11:14 FiO2 50 02/10/24 15:20 Intake & Output 02/13/24 02/14/24 02/14/24 18:59 06:59 18:59 Intake Total 150 180 Balance 150 180 Weight 76.4 kg 74.7 kg Intake: IV 40 Invasive Line 1 20 Invasive Line 2 20 Oral 110 180 Other: Voiding Method Toilet Toilet Toilet # Voids 1 1 - Exam No acute distress, oriented 3. The patient is currently on room air oxygen HEENT examination is grossly unremarkable. Mucous membranes are moist. No oral lesions. Neck supple. Full range of motion. No adenopathy thyromegaly or neck vein distention. Cardiovascular examination reveals regular rhythm rate. S1-S2 normal. No S3 or S4. No discernible murmur noted. Heart sounds are distant. Lungs reveal scattered bilateral expiratory rhonchi, and a few scattered expiratory wheezes. No crackles. Breath sounds equal bilaterally. Breath sounds are diminished throughout. Abdomen soft bowel sounds are heard. No masses or tenderness. Extremities are intact. No cyanosis clubbing or edema. Skin is without rash or lesion. Neurologic examination is brief but nonfocal. - Labs CBC & Chem 7: 02/10/24 11:27 02/12/24 06:24 Labs: Microbiology - Last 24 Hours (Table) 02/10/24 15:19 Blood Culture - Preliminary Blood 02/10/24 15:19 Blood Culture - Preliminary Blood Assessment and Plan Plan: Altered mental status with hallucinations possibly related to hypoxemia and hypotension, recovered and the patient is back to normal mentation, awaiting MRI of the brain Acute hypoxemic respiratory failure requiring BiPAP support, recovered and the patient is currently on room air oxygen. CAT scan of the chest done on 02/02/2024 showed a soft tissue mass in the left infrahilar area and a small left-sided pleural effusion and resolution of the right-sided pleural effusion. The lymphadenopathy was prominent and increasing and punctate nodular densities are developing bilaterally in the lungs. This has been noted in the right lung base and right midlung and the periphery of the left midlung History of stage IV non-small cell lung cancer. he patient was diagnosed with lung malignancy in 01/20, presenting with a left-sided lung mass, metastatic lesion in the sternum, as well as evidence of other areas of skeletal metastasis on subsequent PET scan. 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 The patient was initially initiated on treatment with [employer] FIN[employer]CIAL PL[employer]NER-16, carboplatin, and Tecentriq. His biomarker testing subsequently came back showing BRAF V600E mutation, which is typically found in non-small cell lung cancer. Other mutations usually seen in the small cell cancer were not noted. It was therefore determined that the predominant histology was adenocarcinoma. The patient was changed to carboplatin/Alimta/IO. However this had to be discontinued due to poor tolerance. He was switched to BRAF tageted combination with Encorafenib/Bimetinib. He had several issues on this combination with tolerance, including problems with recurrent infections. Due to this he had frequent dose delays, as well as dose interruptions. He was ultimately switched to Dabrafenib/Trametinib in 12/21. Chronic anemia. Hypertension. Hyperlipidemia. Obstructive sleep apnea syndrome. Chronic obstructive pulmonary disease. Former smoker. Plan: Keep the patient on room air oxygen and the patient is currently off the BiPAP No signs of any significant respiratory distress Mental status is adequate MRI of the brain to be done today Continue Symbicort as maintenance and DuoNeb nebulized treatments [id number] Lovenox 40 mg subcu for DVT prophylaxis Monitor mental status Home medications to be resumed Oncology is on the case Will continue to follow
[2024-02-14] MEDS ORDERED: IPRATROPIUM-ALBUTEROL 3 ML NEB INHALATION PRN (20:48)
[2024-02-15] MEDS: IPRATROPIUM-ALBUTEROL 3 ML NEB INHALATION SCH (08:52)
[2024-02-15 11:49] VITALS: RESP 18; TEMP 98
[2024-02-15 12:35] VITALS: PULSE 88
[2024-02-15 12:57] VITALS: BP 110/64
--- NOTE | 2024-02-15 14:52 | P.PN ---
Subjective Progress Note Date: 02/15/24 Principal diagnosis: AMS. Met NSCLC. In f/u today pt is sitting in chair, "mumbles" his words per his and today he is very clear in telling her that he does not. He has been up to the bathroom with stand by assist, he wants to go home. Objective - Vital Signs Vital signs: Vital Signs Temp 98.0 F 02/15/24 08:20 Pulse 88 02/15/24 12:33 Resp 18 02/15/24 12:00 BP 110/64 02/15/24 12:00 Pulse Ox 96 02/15/24 12:00 FiO2 50 02/10/24 15:20 Intake & Output 02/14/24 02/15/24 02/15/24 18:59 06:59 18:59 Intake Total 540 180 Output Total 0 Balance 540 0 180 Intake: Oral 540 180 Output: Urine 0 Other: Voiding Method Toilet Toilet Toilet # Voids 2 - Constitutional General appearance: Present: cooperative, no acute distress, thin - EENT Eyes: Present: anicteric sclerae, EOMI - Respiratory Respiratory: bilateral: CTA - Cardiovascular Rhythm: regular Heart sounds: normal: S1, S2 Abnormal Heart Sounds: Absent: systolic murmur, diastolic murmur, rub, S3 Gallop, S4 Gallop, click, other - Integumentary Integumentary: Present: normal - Neurologic Neurologic: Present: CNII-XII intact - Musculoskeletal Musculoskeletal: Present: generalized weakness, strength equal bilaterally - Psychiatric Psychiatric: Present: A&O x's 3, appropriate affect, intact judgment & insight - Labs CBC & Chem 7: 02/10/24 11:27 02/12/24 06:24 - Imaging and Cardiology MRI - head: report reviewed Assessment and Plan (1) Altered mental status Status: Acute Code(s): R41.82 - ALTERED MENTAL STATUS, UNSPECIFIED SNOMED Code(s): 552177791 (2) Lung cancer Status: Acute Priority: High Code(s): C34.90 - MALIGNANT NEOPLASM OF UNSP PART OF UNSP BRONCHUS OR LUNG SNOMED Code(s): 052163734 Plan: AMS -Suspect acute respiratory failure 2/2 COPD exacerbation, oxygenation worsened by CAP felt to be contributing to AMS. He has been treated for the same, mental status better today -Pt reports today he is not confused. Pt reports that pt mental status is better but, she feels he is mumbling. -Pt and report decline when he started dabrafeneb/tramentinib, was only on for 3 days. Been off since admit, has taken nearly 5 days for symptoms to improve. -MRI brain neg for metastatic disease to the brain. BRAF + met NSCLC -Diagnostic and therapeutic circumstances as described in consult. -Pt is on 2nd BRAF inhibitor treatment due to intolerance to the first one. He took dabrafenib/tramentinib for 3 days then he started having presenting symptoms. Treatment has been held since patient has been in the hospital. Some improvements in confusion. Pt and worried about resuming -Recommend staying off med to see if pt cont to improve. If he does, then try resuming 1-2 days before being seen in office, that way pt can be assessed early into resumption of treatment. Pt agrees with plan. Will get a f/u with Primary Onc
--- NOTE | 2024-02-15 16:10 | P.PN ---
Subjective Progress Note Date: 02/15/24 This is a 78-year-old male patient with a history of hypertension hyperlipidemia, mild intermittent bronchial asthma, former smoker on home oxygen at 3 L. 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 He had undergone chemoth erapy and radiation through July 2023. He is most recently on dabrafenib Tafinlar. He was at his oncologist office Dr. Monica Leigh, and was found to be hypotensive, hallucinating and hypotensive. He was referred here to the emergency room. Chest x-ray shows left lower lobe infiltrate and small effusion. CT scan of the brain reveals no acute intracranial process. White count 11.5. Hemoglobin 11.9. Platelets 253. INR 0.9. Sodium 134. Potassium 4.8. Bicarb 31. BUN 17. Creatinine 1.05. Glucose 83. He is seen today in the emergency department. He is currently resting on a stretcher. Awake and alert. His is at the bedside who provides most of the information. He is currently on BiPAP 10/5 and 50% FiO2 with O2 saturations in the 90s. He is receiving normal saline at 75 mL/h. Progress note dated February 11, 2024. 78-year-old male seen in consultation yesterday. Please see the note above. He has a history of benign essential hypertension, hyperlipidemia, mild in termittent asthma, previous tobacco use, as well as a diagnosis of stage IV metastatic adenocarcinoma of the lung, with metastasis to the liver and bone. He was diagnosed in December 2022. He has had both chemotherapy, and radiation therapy. When he was recently seen by his medical oncologist, he was found to be hypotensive, and hallucinating. He was sent to the emergency department. The patient is seen this morning, and room 24, in the emergency department. He is on 3 L of oxygen. Saturations are 96%. The patient is getting saline at 75 cc an hour. He did not use BiPAP last night. No new labs today. Viral studies were negative. Progress note dated February 12, 2024. 78-year-old male seen today in room 358. He is sitting in bed, very comfortable. He is awake and alert. No respiratory distress. He is on 3 L of nasal cannula. No IV fluids. He has not had to use BiPAP. Current labs include sodium 135, potassium 4.4, chlorides 103, CO2 28, BUN 15, and creatinine 0.81. Albumin is 3. N-terminal proBNP from yesterday is 902. Viral studies were negative. Blood cultures are currently negative. On 02/13/2024, the patient is being seen for a follow-up. The patient is doing well. No specific complaints. Mental status is improved and the patient is able to follow commands and answer questions appropriately. He remains on oxygen and is currently on 3 L of O2 nasal cannula with a pulse ox of 99%. As stated earlier, the patient has stage IV metastatic non-small cell lung cancer and the patient was being treated with dabrafenib/trametinib as of 12/22/2023. He is under the care of medical oncology. His blood work from today shows a sodium level of 135, potassium level of 4.4, BUN is 15 with a creatinine of 0.8. The viral screen has been negative. CAT scan of the brain that was done at time of admission on 02/10/2024 showed no acute intracranial abnormalities in the chest x-ray from 02/10/2024 showed a left lower lobe small effusion. Noted the most recent CT of the chest from 02/02/2024 and showed no evidence of any pulmonary embolism, soft tissue mass in the left infrahilar area, resolution of the previous right-sided pleural effusion and the patient has a small left-sided pleural effusion. Lymphadenopathy was not present and the patient had punctate nodular densities bilaterally as discussed. On 02/14/2024, the patient is being seen for a follow-up. Patient is currently on room air oxygen. Complaining of extreme exhaustion and fatigue. No chest pain. No shortness of breath. No altered mentation. MRI of the brain is to be done today. Concern for any [employer] metastases. Otherwise, no other complaints. Sodium levels at 135, BUN is 15 with a creatinine of 0.8, serum bicarb is at 28.. The patient remains on DuoNeb nebulized treatments [id number]. The patient is on Symbicort. Rest of the medications are essentially unchanged. Remains on Lovenox 40 mg subcu for DVT prophylaxis. On today's evaluation of 02/15/2024, patient is doing well on room air oxygen. Energy level is improved. No altered mentation. No focal neurological deficits. MRI of the brain was negative for metastases. The patient has no specific complaints. No new labs are available from today. He is ambulating. Tolerating his diet. No nausea vomiting or emesis. Objective - Vital Signs Vital signs: Vital Signs Temp 97.8 F 02/15/24 04:00 Pulse 88 02/15/24 09:04 Resp 17 02/15/24 04:00 BP 123/66 02/15/24 04:00 Pulse Ox 94 L 02/15/24 04:00 FiO2 50 02/10/24 15:20 Intake & Output 02/14/24 02/15/24 02/15/24 18:59 06:59 18:59 Intake Total 540 180 Output Total 0 Balance 540 0 180 Intake: Oral 540 180 Output: Urine 0 Other: Voiding Method Toilet Toilet # Voids 2 - Exam No acute distress, oriented 3. The patient is currently on room air oxygen HEENT examination is grossly unremarkable. Mucous membranes are moist. No oral lesions. Neck supple. Full range of motion. No adenopathy thyromegaly or neck vein distention. Cardiovascular examination reveals regular rhythm rate. S1-S2 normal. No S3 or S4. No discernible murmur noted. Heart sounds are distant. Lungs reveal scattered bilateral expiratory rhonchi, and a few scattered expiratory wheezes. No crackles. Breath sounds equal bilaterally. Breath sounds are diminished throughout. Abdomen soft bowel sounds are heard. No masses or tenderness. Extremities are intact. No cyanosis clubbing or edema. Skin is without rash or lesion. Neurologic examination is brief but nonfocal. - Labs CBC & Chem 7: 02/10/24 11:27 02/12/24 06:24 Assessment and Plan Plan: Altered mental status with hallucinations possibly related to hypoxemia and hypotension, recovered and the patient is back to normal mentation, MRI of the brain is negative for metastases. Acute hypoxemic respiratory failure requiring BiPAP support, recovered and the patient is currently on room air oxygen. CAT scan of the chest done on 02/02/2024 showed a soft tissue mass in the left infrahilar area and a small left-sided pleural effusion and resolution of the right-sided pleural effusion. The lymphadenopathy was prominent and increasing and punctate nodular densities are developing bilaterally in the lungs. This has been noted in the right lung base and right midlung and the periphery of the left midlung History of stage IV non-small cell lung cancer. he patient was diagnosed with lung malignancy in 01/20, presenting with a left-sided lung mass, metastatic lesion in the sternum, as well as evidence of other areas of skeletal metastasis on subsequent PET scan. 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 The patient was initially initiated on treatment with [employer]-16, carboplatin, and Tecentriq. His biomarker testing subsequently came back showing BRAF [id number] mutation, which is typically found in non-small cell lung cancer. Other mutations usually seen in the small cell cancer were not noted. It was therefore determined that the predominant histology was adenocarcinoma. The patient was changed to carboplatin/Alimta/IO. However this had to be discontinued due to poor tolerance. He was switched to BRAF tageted combination with Encorafenib/Bimetinib. He had several issues on this combination with tolerance, including problems with recurrent infections. Due to this he had frequent dose delays, as well as dose interruptions. He was ultimately switched to Dabrafenib/Trametinib in 12/21. Chronic anemia. Hypertension. Hyperlipidemia. Obstructive sleep apnea syndrome. Chronic obstructive pulmonary disease. Former smoker. Plan: Keep the patient on room air oxygen No signs of any significant respiratory distress Mental status is adequate MRI of the brain to be done today Continue Symbicort as maintenance and DuoNeb nebulized treatments [id number] Lovenox 40 mg subcu for DVT prophylaxis Monitor mental status Home medications to be resumed Oncology is on the case Consider resuming the combination of Dabrafenib/Trametinib on outpatient basis The patient is to be discharged home today.
--- NOTE | 2024-02-16 07:13 | DS ---
DISCHARGE SUMMARY FINAL DIAGNOSES: 1. Change in mental status, possibly metabolic encephalopathy secondary to medications. 2. Acute renal failure. 3. Chronic obstructive pulmonary disease, acute exacerbation. 4. Stage IV non-small cell lung cancer. 5. Multiple medical issues. DISCHARGE DISPOSITION: The patient will be discharged in a stable condition and guarded prognosis. HISTORY OF PRESENT ILLNESS: A 78-year-old gentleman with change in mental status, treated symptomatically, improved significantly. Brain MRI did not show any acute abnormality. PHYSICAL EXAMINATION: VITAL SIGNS: Stable. CARDIOVASCULAR: S1, S2. ABDOMEN: Soft. NERVOUS SYSTEM: No focal deficits. The patient will be discharged in stable condition. RECOMMENDATIONS: To continue the home medications as well as add bronchodilators. Follow up with Oncology as outpatient. MIMI / IJN: [id number] /
== END 2024-02-15 12:59 | disposition home or self-care (01) | DRG 91 ==
LOC: EC 10:36 → 3SCARD 14:21
PROVIDERS: ADMIT Internal Medicine; ATTEND Internal Medicine
PROC: 5A09457 Assistance with Respiratory Ventilation, 24-96 Consecutive Hours, Continuous Positive Airway Pressure (ICD-10-PCS; principal; 2024-02-10)
DX: G92.8 Other toxic encephalopathy (principal); J96.01 Acute respiratory failure with hypoxia; N17.9 Acute kidney failure, unspecified; J44.1 Chronic obstructive pulmonary disease with (acute) exacerbation; C34.90 Malignant neoplasm of unspecified part of unspecified bronchus or lung; C79.51 Secondary malignant neoplasm of bone; J90 Pleural effusion, not elsewhere classified; E87.1 Hypo-osmolality and hyponatremia; C78.7 Secondary malignant neoplasm of liver and intrahepatic bile duct; I42.9 Cardiomyopathy, unspecified; I95.9 Hypotension, unspecified; G47.33 Obstructive sleep apnea (adult) (pediatric); I10 Essential (primary) hypertension; K21.9 Gastro-esophageal reflux disease without esophagitis; E78.5 Hyperlipidemia, unspecified; M06.9 Rheumatoid arthritis, unspecified; N42.9 Disorder of prostate, unspecified; J45.20 Mild intermittent asthma, uncomplicated; D63.0 Anemia in neoplastic disease; E86.1 Hypovolemia; T40.2X5A Adverse effect of other opioids, initial encounter; Z87.891 Personal history of nicotine dependence; Z92.21 Personal history of antineoplastic chemotherapy; Z99.81 Dependence on supplemental oxygen
CPT/HCPCS: 36415; 70450; 70553; 71045; 80053; 81001; 82803; 83605; 83735; 83880; 85025; 85610; 85730; 87040; 87636; 93005; 94640; 94660; 96361; 96365; 96367; 99291

== ENCOUNTER 2024-02-22 22:34 | Inpatient (IN) | payer MEDICARE ==
[2024-02-22 22:55] LABS: Glucose,Whole Blood 99 mg/dL (70-110)
[2024-02-22 23:09] LABS: Basophils % (A) 0 %; Eosinophils # (A) 0.1 k/uL (0-0.7); Eosinophils % (A) 1 %; HCT 38.7 % (39.0-53.0); HGB 12.2 gm/dL (13.0-17.5); Hypochromasia Slight; Lymphocytes # (A) 0.6 k/uL (1.0-4.8); Lymphocytes % (A) 6 %; MCH 31.3 pg (25.0-35.0); MCHC 31.5 g/dL (31.0-37.0); MCV 99.2 fL (80.0-100.0); Macrocytosis Slight; Mean Platelet Volume 8.5; Monocytes # (A) 0.3 k/uL (0-1.0); Monocytes % (A) 3 %; Neutrophils # (A) 9.1 k/uL (1.3-7.7); Neutrophils % (A) 89 %; Platelet Count 239 k/uL (150-450); RDW 15.5 % (11.5-15.5); WBC 10.3 k/uL (3.8-10.6)
[2024-02-22] MEDS: SODIUM CHLORIDE 0.9% 1,000 ML IV ONE ×2 (23:26→23:27)
[2024-02-22 23:29] LABS: Prothrombin Time 10.6 sec (10.0-12.5)
[2024-02-22 23:34] LABS: ALT 14 U/L (4-49); AST 28 U/L (17-59); African American GFR (CKD) 79 (>60 ml/min/1.73 sqM); Alkaline Phosphatase 134 U/L (38-126); Anion Gap 8 mmol/L; Blood Urea Nitrogen 20 mg/dL (9-20); Calcium 9.5 mg/dL (8.4-10.2); Carbon Dioxide 27 mmol/L (22-30); Chloride 105 mmol/L (98-107); Glucose 111 mg/dL (74-99); Non-African American GFR(CKD) 68 (>60 ml/min/1.73 sqM); Potassium 5.4 mmol/L (3.5-5.1); Sodium 140 mmol/L (137-145); Total Bilirubin 0.6 mg/dL (0.2-1.3); Total Protein 8.2 g/dL (6.3-8.2)
[2024-02-22 23:41] LABS: NT-Pro-B-Type Natriuretic Pept 3610 pg/mL
--- NOTE | 2024-02-23 00:09 | CT ---
EXAM: CT Head Without Intravenous Contrast CLINICAL HISTORY: ITS.REASON CT Reason: Altered mental status TECHNIQUE: Axial computed tomography images of the head/brain without intravenous contrast. CTDI is 49.1 mGy and DLP is 1150 mGy-cm. This CT exam was performed using one or more of the following dose reduction techniques: automated exposure control, adjustment of the mA and/or kV according to patient size, and/or use of iterative reconstruction technique. COMPARISON: No relevant prior studies available. FINDINGS: No acute intracranial hemorrhage. No midline shift or mass effect. The territorial dent-white matter differentiation is maintained throughout. Age-related cerebral volume loss. Periventricular and subcortical white matter hypoattenuation, consistent with chronic microangiopathy. The visualized orbits appear grossly unremarkable. The calvarium is intact. The visualized paranasal sinuses and mastoid air cells are grossly clear. IMPRESSION: No acute intracranial hemorrhage, midline shift, or mass effect.
--- NOTE | 2024-02-23 00:25 | XR ---
EXAM: XR Chest, 2 Views CLINICAL HISTORY: ITS.REASON XR Reason: altered mental status TECHNIQUE: Frontal and lateral views of the chest. COMPARISON: No relevant prior studies available. FINDINGS: Lungs: Opacified LEFT hemithorax, correlate for large LEFT pleural effusion with near complete atelectasis of the LEFT lung. Pleural space: See above. Heart: Cardiomegaly. Calcified aorta. Mediastinum: Unremarkable. Normal mediastinal contour. Bones/joints: Unremarkable. No acute fracture. IMPRESSION: Opacified LEFT hemithorax, correlate for large LEFT pleural effusion with near complete atelectasis of the LEFT lung.
[2024-02-23 00:39] LABS: Appearance,Urine Clear (Clear); Bilirubin,Urine Negative (Negative); Blood,Urine Negative (Negative); Color,Urine Colorless; Glucose,Urine (UA) Negative (Negative); Ketones,Urine Negative (Negative); Leukocyte Esterase,Urine Negative (Negative); Nitrite,Urine Negative (Negative); Protein,Urine Trace (Negative); Urobilinogen,Urine <2.0 mg/dL (<2.0)
[2024-02-23 00:55] LABS: Amphetamine Screen,Urine Not Detected (NotDetected); Barbiturate Screen,Urine Not Detected (NotDetected); Benzodiazepines Screen,Urine Not Detected (NotDetected); Cocaine Screen,Urine Not Detected (NotDetected); Methadone Screen, Urine Not Detected (NotDetected); Opiate Screen,Urine Not Detected (NotDetected); Oxycodone Screen, Urine Not Detected (NotDetected); Phencyclidine Screen,Urine Not Detected (NotDetected); Tricyclic Antidepressant,Urine Not Detected (NotDetected); Urn Cannabinoid Scrn Detected (NotDetected)
[2024-02-23] MEDS: SODIUM CHLORIDE 0.9% 1,000 ML IV STA (01:00)
--- NOTE | 2024-02-23 01:19 | CT ---
EXAM: CT Angiography Chest With Intravenous Contrast CLINICAL HISTORY: ITS.REASON CT Reason: Possible PE TECHNIQUE: Axial computed tomographic angiography images of the chest with intravenous contrast. CTDI is 16.2 mGy and DLP is 386.2 mGy-cm. This CT exam was performed using one or more of the following dose reduction techniques: automated exposure control, adjustment of the mA and/or kV according to patient size, and/or use of iterative reconstruction technique. MIP reconstructed images were created and reviewed. COMPARISON: No relevant prior studies available. FINDINGS: Pulmonary arteries: Unremarkable. No pulmonary embolism. Aorta: Atherosclerotic changes of the aorta. No thoracic aortic aneurysm. Lungs: Airspace consolidation throughout the entire LEFT lung, consistent with diffuse lobar pneumonia. Debris occluding LEFT lower lobe bronchi. Moderate LEFT pleural effusion. Pleural space: See above. Heart: Cardiomegaly. No significant pericardial effusion. No evidence of RV dysfunction. Mediastinum: Cardiomediastinal shift to the LEFT secondary to volume loss of the LEFT lung. Bones/joints: Expansile lesion in the sternum measures 6.8 x 2.0 cm. Correlate for any history of metastatic disease. Degenerative changes of the spine. No acute fracture. No dislocation. Soft tissues: Unremarkable. Lymph nodes: Unremarkable. No enlarged lymph nodes. IMPRESSION: 1. Airspace consolidation throughout the entire LEFT lung, consistent with diffuse lobar pneumonia. Debris occluding LEFT lower lobe bronchi. Moderate LEFT pleural effusion. 2. Expansile lesion in the sternum measures 6.8 x 2.0 cm. Correlate for any history of metastatic disease. 3. No pulmonary embolism.
--- NOTE | 2024-02-23 01:41 | ED ---
Altered Mental Status HPI - General Chief Complaint: Altered Mental Status Stated Complaint: AMS Time Seen by Provider: 02/22/24 22:41 Source: EMS Mode of arrival: EMS - History of Present Illness Initial Comments: This patient is a 78-year-old man with history of stage IV lung cancer who is brought to have evaluation as he was different from his baseline. Most of the history comes from patient's who stated that he had celebrated Suyapa buffy with family and then today she was not able to get him out of bed. When he did not get out of bed by the evening she called EMS to have him brought here for evaluation. She states that it was difficult to arouse him and then he just would not get out of bed. On arrival the patient denies complaints. No chest pain, denies dyspnea. He had not noted fever at home. Patient denies cough, vomiting, diarrhea. MD Complaint: altered mental status, weakness Onset/Timin -: days(s) Severity: moderate Consistency of Symptoms: getting worse Context: cancer Associated Symptoms: weakness - Related Data Home Medications Medication Instructions Recorded Confirmed Pramipexole Di-HCl [Mirapex] 1.5 mg PO BID@08,199901/03/14 02/23/24 allopurinoL [Zyloprim] 100 mg PO HS@199901/03/14 02/23/24 Albuterol Sulfate [Albuterol 2 puff INHALATION RT-Q4H PRN 04/15/23 02/23/24 Sulfate Hfa] Ergocalciferol (Vitamin D2) 1,250 mcg PO Q14D 04/15/23 02/23/24 [Drisdol (50,000 Iu)] Ferrous Sulfate [Iron (65 MG 975 mg PO DAILY@1400 04/15/23 02/23/24 Elemental)] Fluticasone Propion/Salmeterol 2 puff INHALATION RT-BID 04/15/23 02/23/24 [Advair 250-50 Diskus] Montelukast [Singulair] 10 mg PO HS@199904/15/23 02/23/24 Tamsulosin [Flomax] 0.4 mg PO DAILY@0800 04/15/23 02/23/24 Albuterol Nebulized [Ventolin 2.5 mg INHALATION RT-BID 09/08/23 02/23/24 Nebulized] Benralizumab [Fasenra] 30 mg SQ Q56D 09/08/23 02/23/24 Calcium Carbonate [Calcium] 600 mg PO BID@1399,199909/08/23 02/23/24 Cholecalciferol [Vitamin D3 (10 10 mcg PO BID@1400,199909/08/23 02/23/24 Mcg = 400 Iu)] Docusate Sodium 250 mg PO BID@0800,1400 09/08/23 02/23/24 Omeprazole [PriLOSEC] 40 mg PO DAILY@0809/08/23 02/23/24 Zoledronic Acid [Zometa] 4 mg IV Q90D 09/08/23 02/23/24 Magnesium 250 mg PO DAILY@79909/25/23 02/23/24 Ondansetron Odt [Zofran ODT] 4 mg PO DAILY PRN 09/25/23 02/23/24 HYDROcodone/APAP 10-325MG [Melber 1 tab PO Q6H PRN 11/08/23 02/23/24 10-325] Morphine Sulfate ER [Ms Contin] 30 mg PO BID PRN 11/08/23 02/23/24 Rosuvastatin Calcium [Crestor] 40 mg PO DAILY@79911/08/23 02/23/24 Dabrafenib (Tafinlar) 50mg Cap 50 mg PO BID 01/07/24 02/23/24 Mirtazapine [Remeron] 15 mg PO HS@199901/07/24 02/23/24 Trametinib Dimethyl Sulfoxide 0.5 mg PO BID 01/07/24 02/23/24 [Mekinist] Furosemide [Lasix] 40 mg PO DAILY 02/10/24 02/23/24 Megestrol [Megace] 400 mg PO TID PRN 02/10/24 02/23/24 Previous Rx's Medication Instructions Recorded Metoprolol Succinate (ER) [Toprol 25 mg PO DAILY #30 tab 01/11/24 XL] Ipratropium-Albuterol Nebulize 3 ml INHALATION RT-QID #120 each 02/15/24 [Duoneb 0.5 mg-3 mg/3 ml Soln] Allergies Allergy/AdvReac Type Severity Reaction Status Date / Time No Known Allergies Allergy Verified 02/23/24 08:23 Review of Systems ROS Statement: Those systems with pertinent positive or pertinent negative responses have been documented in the HPI. ROS Other: All systems not noted in ROS Statement are negative. Constitutional: Reports: weakness. Denies: fever, chills Eyes: Denies: vision change Respiratory: Denies: cough, dyspnea Cardiovascular: Denies: chest pain, palpitations Gastrointestinal: Denies: abdominal pain, nausea, vomiting, diarrhea Genitourinary: Denies: dysuria, frequency Musculoskeletal: Denies: back pain Skin: Denies: rash Neurological: Reports: confusion. Denies: headache, weakness Past Medical History Past Medical History: Asthma, Cancer, COPD, GERD/Reflux, Hyperlipidemia, Hypertension, Pneumonia, Prostate Disorder, Rheumatoid Arthritis (RA), Sleep Apnea/CPAP/BIPAP Additional Past Medical History / Comment(s): cardiomyopathy, anemia, lung cancer diagnosed 12/29/2022 (last chemo finished 08/21/23, last radiation 06/2023) History of Any Multi-Drug Resistant Organisms: None Reported Past Surgical History: Hernia Repair, Joint Replacement, Orthopedic Surgery Additional Past Surgical History / Comment(s): colonoscopy,EGD, Antonina hip replacments, antonina fx ankles, screws removed from rt ankle Past Anesthesia/Blood Transfusion Reactions: No Reported Reaction Past Psychological History: Depression Smoking Status: Former smoker General Exam General appearance: alert, in no apparent distress Head exam: Present: atraumatic, normocephalic Eye exam: Present: normal appearance. Absent: scleral icterus, conjunctival injection ENT exam: Present: mucous membranes dry Neck exam: Present: normal inspection Respiratory exam: Present: other (Bronchial breath sounds on the left). Absent: respiratory distress, wheezes, rales, rhonchi, stridor, accessory muscle use Cardiovascular Exam: Present: normal rhythm, tachycardia, normal heart sounds. Absent: systolic murmur, diastolic murmur, rubs, gallop GI/Abdominal exam: Present: soft. Absent: distended, tenderness, guarding, rebound, rigid, mass Extremities exam: Present: normal inspection, normal capillary refill. Absent: pedal edema, calf tenderness Back exam: Present: normal inspection. Absent: CVA tenderness (R), CVA tenderness (L) Neurological exam: Present: alert, CN II-XII intact. Absent: oriented X3 (Patient is oriented to person and recognizes he is in the hospital but could not state the date.), motor sensory deficit Skin exam: Present: warm, dry, intact, normal color. Absent: rash Course Vital Signs 02/22/24 02/22/24 02/22/24 22:39 23:00 23:01 Temperature 97.8 F Pulse Rate 126 H 101 H Respiratory 22 20 Rate Blood Pressure 112/73 98/60 O2 Sat by Pulse 94 L 82 L 100 Oximetry Fraction of Inspired Oxygen (FIO2) 02/22/24 02/22/24 02/23/24 23:30 23:41 00:00 Temperature Pulse Rate 54 L 71 Respiratory 20 18 Rate Blood Pressure 121/64 107/70 O2 Sat by Pulse 99 98 Oximetry Fraction of 50 Inspired Oxygen (FIO2) 02/23/24 02/23/24 02/23/24 01:00 02:00 03:00 Temperature Pulse Rate 101 H 73 90 Respiratory 18 18 18 Rate Blood Pressure 111/69 92/64 100/52 O2 Sat by Pulse 98 99 98 Oximetry Fraction of Inspired Oxygen (FIO2) 02/23/24 02/23/24 02/23/24 04:00 06:30 10:24 Temperature Pulse Rate 92 111 H 98 Respiratory 18 18 20 Rate Blood Pressure 106/60 101/63 117/60 O2 Sat by Pulse 100 100 100 Oximetry Fraction of Inspired Oxygen (FIO2) 02/23/24 02/23/24 02/23/24 13:12 15:46 17:52 Temperature Pulse Rate 91 96 80 Respiratory 20 20 20 Rate Blood Pressure 94/63 97/63 103/60 O2 Sat by Pulse 98 96 99 Oximetry Fraction of Inspired Oxygen (FIO2) 02/23/24 18:40 Temperature Pulse Rate 88 Respiratory 20 Rate Blood Pressure 113/69 O2 Sat by Pulse 96 Oximetry Fraction of Inspired Oxygen (FIO2) Procedures - Emerson Protocol (Time Out) Nurse: Lisy Quevedo Medical Decision Making - Medical Decision Making This patient is 78-year-old man brought to have evaluation of generalized weakness and some confusion. Patient had CT scan of the brain that I interpreted as negative for acute bony injury. Negative for acute intracranial hemorrhage or mass effect. The patient had chest x-ray that I interpreted as showing opacification of left lung field suspect related to pleural effusion. The patient had CT scan of the chest in relation to the abnormal x-ray and the elevated D-dimer. There does appear to be pleural effusion but no pulmonary embolism. Given course of antibiotics for suspected obstructive pneumonia. Was pt. sent in by a medical professional or institution (DURAN Ansari, SOLVENT STATION ATTENDANT, urgent care, hospital, or snf...) When possible be specific @ -[No] Did you speak to anyone other than the patient for history (EMS, parent, family, police, friend...)? What history was obtained from this source @ -[Patient's family gave significant history Did you review nursing and triage notes (agree or disagree)? Why? @ -[I reviewed and agree with nursing and triage notes] Were old charts reviewed (outside hosp., previous admission, EMS record, old EKG, old radiological studies, urgent care reports/EKG's, snf records)? Report findings @ -[No old charts were reviewed] Differential Diagnosis (chest pain, altered mental status, abdominal pain women, abdominal pain men, vaginal bleeding, weakness, fever, dyspnea, syncope, headache, dizziness, GI bleed, back pain, seizure, CVA, palpatations, mental health, musculoskeletal)? @ -Differential Dyspnea: Coronary syndrome, arrhythmia, tamponade, asthma, COPD, pulmonary embolism, pneumonia, pneumothorax, pulmonary effusion, anaphylaxis, diabetic ketoacidosis, flailed chest, pulmonary contusion, diaphragmatic rupture, anemia, neuromuscular, this is not meant to be an all-inclusive list. EKG interpreted by me (3pts min.). @ -[I interpreted as above X-rays interpreted by me (1pt min.). @ -[I interpreted as above CT interpreted by me (1pt min.). @ -[I interpreted as above U/S interpreted by me (1pt. min.). @ -[None done] What testing was considered but not performed or refused? (CT, X-rays, U/S, labs)? Why? @ -[None] What meds were considered but not given or refused? Why? @ -[None] Did you discuss the management of the patient with other professionals (professionals i.e. DURAN Ansari, SOLVENT STATION ATTENDANT, lab, RT, psych nurse, social work associate, orthopaedic nurse, teacher, police or patrol park officer, gearcase assembler)? Give summary @ -[Case discussed with admitting physician and treatment recommendations incorporated Was smoking cessation discussed for >3mins.? @ -[No] Was critical care preformed (if so, how long)? @ -[No] Were there social determinants of health that impacted care today? How? (Homelessness, low income, unemployed, alcoholism, drug addiction, transportation, low edu. Level, literacy, decrease access to med. care, custodial, rehab)? @ -[No] Was there de-escalation of care discussed even if they declined (Discuss DNR or withdrawal of care, Hospice)? DNR status @ -[No] What co-morbidities impacted this encounter? (DM, HTN, Smoking, COPD, CAD, Cancer, CVA, ARF, Chemo, Hep., AIDS, mental health diagnosis, sleep apnea, morbid obesity)? @ -[Static lung cancer Was patient admitted / discharged? Hospital course, mention meds given and route, prescriptions, significant lab abnormalities, going to OR and other pertinent info. @ -[Patient is 78-year-old man with history of metastatic lung cancer arriving with dyspnea and found to have suspected obstructive pneumonia. Patient started on fluids, antibiotics, admitted with further consultation. Undiagnosed new problem with uncertain prognosis? @ -[No] Drug Therapy requiring intensive monitoring for toxicity (Heparin, Nitro, Insulin, Cardizem)? @ -[No] Were any procedures done? @ -[No] Diagnosis/symptom? @ -[Acute pneumonia Acute, or Chronic, or Acute on Chronic? @ -[Acute Uncomplicated (without systemic symptoms) or Complicated (systemic symptoms)? @ -[Complicated Side effects of treatment? @ -[No] Exacerbation, Progression, or Severe Exacerbation? @ -[No] Poses a threat to life or bodily function? How? (Chest pain, [place], [place], pneumonia, PE, COPD, DKA, ARF, appy, cholecystitis, CVA, Diverticulitis, Homicidal, Suicidal, threat to staff... and all critical care pts) @ -[Yes very high risk of mortality given the patient's comorbidities All treatments are based on ideal body weight as in ED triage - Lab Data Result diagrams: 02/28/24 05:13 02/28/24 05:13 Lab Results 02/22/24 02/22/24 02/22/24 Range/Units 22:52 22:52 22:52 WBC 10.3 (3.8-10.6) k/uL RBC 3.90 L (4.30-5.90) m/uL Hgb 12.2 L (13.0-17.5) gm/dL Hct 38.7 L (39.0-53.0) % MCV 99.2 (80.0-100.0) fL MCH 31.3 (25.0-35.0) pg MCHC 31.5 (31.0-37.0) g/dL RDW 15.5 (11.5-15.5) % Plt Count 239 (150-450) k/uL MPV 8.5 Neutrophils % 89 % Lymphocytes % 6 % Monocytes % 3 % Eosinophils % 1 % Basophils % 0 % Neutrophils # 9.1 H (1.3-7.7) k/uL Lymphocytes # 0.6 L (1.0-4.8) k/uL Monocytes # 0.3 (0-1.0) k/uL Eosinophils # 0.1 (0-0.7) k/uL Basophils # 0.0 (0-0.2) k/uL Hypochromasia Slight Macrocytosis Slight PT 10.6 (10.0-12.5) sec INR 1.0 (<1.2) APTT 24.0 (22.0-30.0) sec D-Dimer 2.17 H (<0.60) mg/L FEU Sodium 140 (137-145) mmol/L Potassium 5.4 H (3.5-5.1) mmol/L Chloride 105 (98-107) mmol/L Carbon Dioxide 27 (22-30) mmol/L Anion Gap 8 mmol/L BUN 20 (9-20) mg/dL Creatinine 1.04 (0.66-1.25) mg/dL Est GFR (CKD-EPI)AfAm 79 (>60 ml/min/1.73 sqM) Est GFR (CKD-EPI)NonAf 68 (>60 ml/min/1.73 sqM) Glucose 111 H (74-99) mg/dL POC Glucose (mg/dL) (70-110) mg/dL POC Glu Branch Store Manager ID Calcium 9.5 (8.4-10.2) mg/dL Total Bilirubin 0.6 (0.2-1.3) mg/dL AST 28 (17-59) U/L ALT 14 (4-49) U/L Alkaline Phosphatase 134 H (38-126) U/L Troponin I (0.000-0.034) ng/mL NT-Pro-B Natriuret Pep 3610 pg/mL Total Protein 8.2 (6.3-8.2) g/dL Albumin 4.0 (3.5-5.0) g/dL Urine Color Urine Appearance (Clear) Urine pH (5.0-8.0) Ur Specific [place] (1.001-1.035) Urine Protein (Negative) Urine Glucose (UA) (Negative) Urine Ketones (Negative) Urine Blood (Negative) Urine Nitrite (Negative) Urine Bilirubin (Negative) Urine Urobilinogen (<2.0) mg/dL Ur Leukocyte Esterase (Negative) Urine Opiates Screen (NotDetected) Ur Oxycodone Screen (NotDetected) Urine Methadone Screen (NotDetected) Ur Barbiturates Screen (NotDetected) U Tricyclic Antidepress (NotDetected) Ur Phencyclidine Scrn (NotDetected) Ur Amphetamines Screen (NotDetected) U Methamphetamines Scrn (NotDetected) U Benzodiazepines Scrn (NotDetected) Urine Cocaine Screen (NotDetected) U Marijuana (THC) Screen (NotDetected) Urine Legionella Ag (Negative) 02/22/24 02/22/24 02/23/24 Range/Units 22:52 22:54 00:26 WBC (3.8-10.6) k/uL RBC (4.30-5.90) m/uL Hgb (13.0-17.5) gm/dL Hct (39.0-53.0) % MCV (80.0-100.0) fL MCH (25.0-35.0) pg MCHC (31.0-37.0) g/dL RDW (11.5-15.5) % Plt Count (150-450) k/uL MPV Neutrophils % % Lymphocytes % % Monocytes % % Eosinophils % % Basophils % % Neutrophils # (1.3-7.7) k/uL Lymphocytes # (1.0-4.8) k/uL Monocytes # (0-1.0) k/uL Eosinophils # (0-0.7) k/uL Basophils # (0-0.2) k/uL Hypochromasia Macrocytosis PT (10.0-12.5) sec INR (<1.2) APTT (22.0-30.0) sec D-Dimer (<0.60) mg/L FEU Sodium (137-145) mmol/L Potassium (3.5-5.1) mmol/L Chloride (98-107) mmol/L Carbon Dioxide (22-30) mmol/L Anion Gap mmol/L BUN (9-20) mg/dL Creatinine (0.66-1.25) mg/dL Est GFR (CKD-EPI)AfAm (>60 ml/min/1.73 sqM) Est GFR (CKD-EPI)NonAf (>60 ml/min/1.73 sqM) Glucose (74-99) mg/dL POC Glucose (mg/dL) 99 (70-110) mg/dL POC Glu Branch Store Manager ID Prater João Calcium (8.4-10.2) mg/dL Total Bilirubin (0.2-1.3) mg/dL AST (17-59) U/L ALT (4-49) U/L Alkaline Phosphatase (38-126) U/L Troponin I 0.012 (0.000-0.034) ng/mL NT-Pro-B Natriuret Pep pg/mL Total Protein (6.3-8.2) g/dL Albumin (3.5-5.0) g/dL Urine Color Urine Appearance (Clear) Urine pH (5.0-8.0) Ur Specific [place] (1.001-1.035) Urine Protein (Negative) Urine Glucose (UA) (Negative) Urine Ketones (Negative) Urine Blood (Negative) Urine Nitrite (Negative) Urine Bilirubin (Negative) Urine Urobilinogen (<2.0) mg/dL Ur Leukocyte Esterase (Negative) Urine Opiates Screen Not Detected (NotDetected) Ur Oxycodone Screen Not Detected (NotDetected) Urine Methadone Screen Not Detected (NotDetected) Ur Barbiturates Screen Not Detected (NotDetected) U Tricyclic Antidepress Not Detected (NotDetected) Ur Phencyclidine Scrn Not Detected (NotDetected) Ur Amphetamines Screen Not Detected (NotDetected) U Methamphetamines Scrn Not Detected (NotDetected) U Benzodiazepines Scrn Not Detected (NotDetected) Urine Cocaine Screen Not Detected (NotDetected) U Marijuana (THC) Screen Detected H (NotDetected) Urine Legionella Ag (Negative) 02/23/24 02/23/24 Range/Units 00:26 00:26 WBC (3.8-10.6) k/uL RBC (4.30-5.90) m/uL Hgb (13.0-17.5) gm/dL Hct (39.0-53.0) % MCV (80.0-100.0) fL MCH (25.0-35.0) pg MCHC (31.0-37.0) g/dL RDW (11.5-15.5) % Plt Count (150-450) k/uL MPV Neutrophils % % Lymphocytes % % Monocytes % % Eosinophils % % Basophils % % Neutrophils # (1.3-7.7) k/uL Lymphocytes # (1.0-4.8) k/uL Monocytes # (0-1.0) k/uL Eosinophils # (0-0.7) k/uL Basophils # (0-0.2) k/uL Hypochromasia Macrocytosis PT (10.0-12.5) sec INR (<1.2) APTT (22.0-30.0) sec D-Dimer (<0.60) mg/L FEU Sodium (137-145) mmol/L Potassium (3.5-5.1) mmol/L Chloride (98-107) mmol/L Carbon Dioxide (22-30) mmol/L Anion Gap mmol/L BUN (9-20) mg/dL Creatinine (0.66-1.25) mg/dL Est GFR (CKD-EPI)AfAm (>60 ml/min/1.73 sqM) Est GFR (CKD-EPI)NonAf (>60 ml/min/1.73 sqM) Glucose (74-99) mg/dL POC Glucose (mg/dL) (70-110) mg/dL POC Glu Branch Store Manager ID Calcium (8.4-10.2) mg/dL Total Bilirubin (0.2-1.3) mg/dL AST (17-59) U/L ALT (4-49) U/L Alkaline Phosphatase (38-126) U/L Troponin I (0.000-0.034) ng/mL NT-Pro-B Natriuret Pep pg/mL Total Protein (6.3-8.2) g/dL Albumin (3.5-5.0) g/dL Urine Color Colorless Urine Appearance Clear (Clear) Urine pH 6.0 (5.0-8.0) Ur Specific [place] 1.030 (1.001-1.035) Urine Protein Trace H (Negative) Urine Glucose (UA) Negative (Negative) Urine Ketones Negative (Negative) Urine Blood Negative (Negative) Urine Nitrite Negative (Negative) Urine Bilirubin Negative (Negative) Urine Urobilinogen <2.0 (<2.0) mg/dL Ur Leukocyte Esterase Negative (Negative) Urine Opiates Screen (NotDetected) Ur Oxycodone Screen (NotDetected) Urine Methadone Screen (NotDetected) Ur Barbiturates Screen (NotDetected) U Tricyclic Antidepress (NotDetected) Ur Phencyclidine Scrn (NotDetected) Ur Amphetamines Screen (NotDetected) U Methamphetamines Scrn (NotDetected) U Benzodiazepines Scrn (NotDetected) Urine Cocaine Screen (NotDetected) U Marijuana (THC) Screen (NotDetected) Urine Legionella Ag Negative (Negative) - EKG Data -: EKG Interpreted by Me EKG shows normal: sinus rhythm, axis, intervals (Normal), QRS complexes (Normal) Rate: tachycardia (Rate 124 bpm) Disposition Clinical Impression: Lung cancer, Pneumonia Disposition: ADMITTED IP TO THIS HOSP Condition: Poor Is patient prescribed a controlled substance at d/c from ED?: No
[2024-02-23] MEDS: AZITHROMYCIN 500 MG TAB PO STA (03:18)
[2024-02-23] MEDS: AZITHROMYCIN 500 MG in SODIUM CHLORIDE 0.9% 250 ML IVPB STA (04:23)
[2024-02-23] MEDS ORDERED: AZITHROMYCIN 500 MG in SODIUM CHLORIDE 0.9% 250 ML IVPB SCH (09:00)
[2024-02-23] MEDS ORDERED: ONDANSETRON ODT 4 MG TAB PO PRN (09:54)
--- NOTE | 2024-02-23 09:56 | P.HPIM ---
History of Present Illness This is a pleasant 78 years old male with past medical history of left lung cancer and he follow-up with Dr. Rivero and chronic hypoxic respiratory failure on 3 L oxygen via nasal cannula and other medical problems as below Presents because of confusion, patient was hard to wake up yesterday by his and he was unresponsive for some time. At baseline he is awake alert oriented in time 1-2. He has possible also metastatic disease and last treatment he received for his cancer disease was last August However patient does not complain from shortness of breath although he is using the mask and his oxygen requirement went up to 15 L/min. No coughing. No left- sided chest pain He has central chest pain in the lower chest which is coincides with sternal lesion seen on CAT scan below. No specific GI/ symptom, complains from dizziness and decreased appetite but no headache weakness or numbness At baseline he uses a walker Currently he is not a smoker, not drink alcohol. Patient is afebrile but blood pressure is borderline 101/63. He has unremarkable CBC, BMP, LFT, INR, troponin and urine analysis. D-dimer was elevated 2.17, proBNP was elevated to 3610. Urine drug screen is positive for marijuana EKG showing sinus tachycardia with no ST-T changes Chest x-ray showing opacified left lung may be large pleural effusion versus large atelectasis CTA of the chest showing no PE but there is airspace consolidative and through entire left lung with diffuse left lower lobe opacification Patient started on ceftriaxone and Zithromax Review of Systems Review of systems CONSTITUTIONAL: No fever, no malaise, no fatigue. HEENT: No recent visual problems or hearing problems. Denied any sore throat. CARDIOVASCULAR: No orthopnea, PND, no palpitations, no syncope. PULMONARY: No shortness of breath, no cough, no hemoptysis. GASTROINTESTINAL: No diarrhea, no nausea, no vomiting, no abdominal pain. Normoactive bowel sounds. NEUROLOGICAL: No headaches, no weakness, no numbness. HEMATOLOGICAL: Denies any bleeding or petechiae. GENITOURINARY: Denies any burning micturition, frequency, or urgency. MUSCULOSKELETAL/RHEUMATOLOGICAL: Denies any joint pain, swelling, or any muscle pain. ENDOCRINE: Denies any polyuria or polydipsia. Past Medical History Past Medical History: Asthma, Cancer, COPD, GERD/Reflux, Hyperlipidemia, Hypertension, Pneumonia, Prostate Disorder, Rheumatoid Arthritis (RA), Sleep Apnea/CPAP/BIPAP Additional Past Medical History / Comment(s): cardiomyopathy, anemia, lung cancer diagnosed 12/29/2022 (last chemo finished 08/21/23, last radiation 06/2023) History of Any Multi-Drug Resistant Organisms: None Reported Past Surgical History: Hernia Repair, Joint Replacement, Orthopedic Surgery Additional Past Surgical History / Comment(s): colonoscopy,EGD, Scotty hip replacments, scotty fx ankles, screws removed from rt ankle Past Anesthesia/Blood Transfusion Reactions: No Reported Reaction Past Psychological History: Depression Smoking Status: Former smoker Medications and Allergies Home Medications Medication Instructions Recorded Confirmed Type Pramipexole Di-HCl [Mirapex] 1.5 mg PO BID@0800,199901/03/14 02/23/24 History allopurinoL [Zyloprim] 100 mg PO HS@199901/03/14 02/23/24 History Albuterol Sulfate [Albuterol 2 puff INHALATION RT-Q4H PRN 04/15/23 02/23/24 History Sulfate Hfa] Ergocalciferol (Vitamin D2) 1,250 mcg PO Q14D 04/15/23 02/23/24 History [Drisdol (50,000 Iu)] Ferrous Sulfate [Iron (65 MG 975 mg PO DAILY@1400 04/15/23 02/23/24 History Elemental)] Fluticasone Propion/Salmeterol 2 puff INHALATION RT-BID 04/15/23 02/23/24 History [Advair 250-50 Diskus] Montelukast [Singulair] 10 mg PO HS@199904/15/23 02/23/24 History Tamsulosin [Flomax] 0.4 mg PO DAILY@0800 04/15/23 02/23/24 History Albuterol Nebulized [Ventolin 2.5 mg INHALATION RT-BID 09/08/23 02/23/24 History Nebulized] Benralizumab [Fasenra] 30 mg SQ Q56D 09/08/23 02/23/24 History Calcium Carbonate [Calcium] 600 mg PO BID@1400,199909/08/23 02/23/24 History Cholecalciferol [Vitamin D3 (10 10 mcg PO BID@1400,199909/08/23 02/23/24 History Mcg = 400 Iu)] Docusate Sodium 250 mg PO BID@0800,1400 09/08/23 02/23/24 History Omeprazole [PriLOSEC] 40 mg PO DAILY@0800 09/08/23 02/23/24 History Zoledronic Acid [Zometa] 4 mg IV Q90D 09/08/23 02/23/24 History Magnesium 250 mg PO DAILY@0800 09/25/23 02/23/24 History Ondansetron Odt [Zofran ODT] 4 mg PO DAILY PRN 09/25/23 02/23/24 History HYDROcodone/APAP 10-325MG [[place] 1 tab PO Q6H PRN 11/08/23 02/23/24 History 10-325] Morphine Sulfate ER [Ms Contin] 30 mg PO BID PRN 11/08/23 02/23/24 History Rosuvastatin Calcium [Crestor] 40 mg PO DAILY@0800 11/08/23 02/23/24 History Dabrafenib (Tafinlar) 50mg Cap 50 mg PO BID 01/07/24 02/23/24 History Mirtazapine [Remeron] 15 mg PO HS@199901/07/24 02/23/24 History Trametinib Dimethyl Sulfoxide 0.5 mg PO BID 01/07/24 02/23/24 History [Mekinist] Metoprolol Succinate (ER) [Toprol 25 mg PO DAILY #30 tab 01/11/24 02/23/24 Rx XL] Furosemide [Lasix] 40 mg PO DAILY 02/10/24 02/23/24 History Megestrol [Megace] 400 mg PO TID PRN 02/10/24 02/23/24 History Ipratropium-Albuterol Nebulize 3 ml INHALATION RT-QID #120 each 02/15/24 Rx [Duoneb 0.5 mg-3 mg/3 ml Soln] Allergies Allergy/AdvReac Type Severity Reaction Status Date / Time No Known Allergies Allergy Verified 02/23/24 08:23 Physical Exam Vitals: Vital Signs Temp Pulse Resp BP Pulse Ox FiO2 02/23/24 06:30 111 H 18 101/63 100 02/23/24 04:00 92 18 106/60 100 02/23/24 03:00 90 18 100/52 98 12/26/24 02:00 73 18 92/64 99 02/23/24 01:00 101 H 18 111/69 98 02/23/24 00:00 71 18 107/70 98 02/22/24 23:41 50 02/22/24 23:30 54 L 20 121/64 99 02/22/24 23:01 100 02/22/24 23:00 101 H 20 98/60 82 L 02/22/24 22:39 97.8 F 126 H 22 112/73 94 L Intake and Output 02/22/24 02/23/24 02/23/24 22:59 06:59 14:59 Other: Weight 83.915 kg -GENERAL: The patient is alert and oriented x3, not in any acute distress. Well developed, well nourished. Generally weak HEENT: Pupils are round and equally reacting to light. EOMI. No scleral icterus. No conjunctival pallor. Normocephalic, atraumatic. No pharyngeal erythema. No thyromegaly. CARDIOVASCULAR: S1 and S2 present. No murmurs, rubs, or gallops. -PULMONARY: Chest is clear to auscultation, no wheezing , no crackles. Decreased breath sounds on the left side. On oxygen mask ABDOMEN: Soft, nontender, nondistended, normoactive bowel sounds. No palpable organomegaly. MUSCULOSKELETAL: No joint swelling or deformity. EXTREMITIES: No cyanosis, clubbing, or pedal edema. NEUROLOGICAL: Gross neurological examination did not reveal any focal deficits. SKIN: No rashes. no petechiae. Results CBC & Chem 7: 02/22/24 22:52 02/22/24 22:52 Labs: Abnormal Lab Results - Last 24 Hours (Table) 02/22/24 02/22/24 02/22/24 Range/Units 22:52 22:52 22:52 RBC 3.90 L (4.30-5.90) m/uL Hgb 12.2 L (13.0-17.5) gm/dL Hct 38.7 L (39.0-53.0) % Neutrophils # 9.1 H (1.3-7.7) k/uL Lymphocytes # 0.6 L (1.0-4.8) k/uL D-Dimer 2.17 H (<0.60) mg/L FEU Potassium 5.4 H (3.5-5.1) mmol/L Glucose 111 H (74-99) mg/dL Alkaline Phosphatase 134 H (38-126) U/L Urine Protein (Negative) U Marijuana (THC) Screen (NotDetected) 02/23/24 02/23/24 Range/Units 00:26 00:26 RBC (4.30-5.90) m/uL Hgb (13.0-17.5) gm/dL Hct (39.0-53.0) % Neutrophils # (1.3-7.7) k/uL Lymphocytes # (1.0-4.8) k/uL D-Dimer (<0.60) mg/L FEU Potassium (3.5-5.1) mmol/L Glucose (74-99) mg/dL Alkaline Phosphatase (38-126) U/L Urine Protein Trace H (Negative) U Marijuana (THC) Screen Detected H (NotDetected) Assessment and Plan Assessment: Metabolic encephalopathy Almost complete opacification of the left hemithorax suspicious for diffuse lobar pneumonia, versus large atelectasis or pleural effusion Sternal lesion 6.8 x 2 cm suspicious for metastatic disease Left lung cancer and he follow-up with Dr. Alvarado whom was consulted Plan: Continue with antibiotic ceftriaxone and Zithromax Start IV fluid D5 half-normal saline at 50 mL/h Pulmonary team consult Hematology/oncology consult Follow-up culture results Labs and medication were reviewed.. Continue same treatment. Continue with symptomatic treatment. Resume home medication. Monitor labs and vitals. DVT and GI prophylaxis. Further recommendations as per clinical course of the patient DVT prophylaxis: Subcutaneous heparin GI Prophylaxis: Pepcid PT/OT: Pending Prognosis is guarded
[2024-02-23] MEDS ORDERED: ZOLEDRONIC ACID 4 MG/5 ML VIAL IV SCH (10:00)
[2024-02-23] MEDS: DEXTROSE 5%-0.45% NACL 1,000 ML IV SCH (10:22)
[2024-02-23] MEDS: FERROUS SULFATE 325 MG TAB PO SCH (13:12)
--- NOTE | 2024-02-23 13:22 | P.CNPUL ---
History of Present Illness Consult date: 02/23/24 Requesting physician: Hussein E Jax Reason for consult: dyspnea, hypoxemia, abnormal CXR/CT Chief complaint: Altered mental status History of present illness: This is a 78-year-old male patient with a history of hypertension, hyperlipidemia, mild intermittent bronchial asthma, former smoker on home oxygen at 3 L. 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 He had undergone chemotherapy and radiation through July 2023. He is most recently on dabrafenib Tafinlar. He was just discharged from here February 15, 2024 for hypoxic respiratory failure, hypotension and hallucinations. He had been at home recovering with his when she found him to be minimally responsive and severe weakness unable to get him out of bed. CT scan of the brain revealed no acute intracranial hemorrhage, midline shift or mass effect. X-ray reveals opacified left hemithorax with possible left pleural effusion or atelectatic changes. CT scan of the chest revealed airspace consolidation throughout the entire left lung, consistent with diffuse lobar pneumonia. Debris occluding left lower lobe bronchi. Moderate left pleural effusion. Expansive lesion in the sternum measuring 6.8 x 2.0 cm suspect metastatic disease. No pulmonary embolism. White count 10.3. Hemoglobin 12.2. Platelets 239. INR 1.0. D- dimer 2.17. Sodium 140. Potassium 5.4. Bicarb 27. BUN 20. Creatinine 1.04. Glucose 111. Urinalysis clean. Urine drug screen positive for marijuana. He is seen today in consultation in the emergency department. He remains altered. Poor historian. He is currently maintaining O2 saturations up to 100% on a Ventimask. Afebrile. Hemodynamically stable. Review of Systems ROS unobtainable: due to mental status Past Medical History Past Medical History: Asthma, Cancer, COPD, GERD/Reflux, Hyperlipidemia, Hypertension, Pneumonia, Prostate Disorder, Rheumatoid Arthritis (RA), Sleep Apnea/CPAP/BIPAP Additional Past Medical History / Comment(s): cardiomyopathy, anemia, lung cancer diagnosed 12/29/2022 (last chemo finished 08/21/23, last radiation 06/2023) History of Any Multi-Drug Resistant Organisms: None Reported Past Surgical History: Hernia Repair, Joint Replacement, Orthopedic Surgery Additional Past Surgical History / Comment(s): colonoscopy,EGD, Scotty hip replacments, scotty fx ankles, screws removed from rt ankle Past Anesthesia/Blood Transfusion Reactions: No Reported Reaction Past Psychological History: Depression Smoking Status: Former smoker Medications and Allergies Home Medications Medication Instructions Recorded Confirmed Type Pramipexole Di-HCl [Mirapex] 1.5 mg PO BID@0800,199901/03/14 02/23/24 History allopurinoL [Zyloprim] 100 mg PO HS@199901/03/14 02/23/24 History Albuterol Sulfate [Albuterol 2 puff INHALATION RT-Q4H PRN 04/15/23 02/23/24 History Sulfate Hfa] Ergocalciferol (Vitamin D2) 1,250 mcg PO Q14D 04/15/23 02/23/24 History [Drisdol (50,000 Iu)] Ferrous Sulfate [Iron (65 MG 975 mg PO DAILY@1400 04/15/23 02/23/24 History Elemental)] Fluticasone Propion/Salmeterol 2 puff INHALATION RT-BID 04/15/23 02/23/24 History [Advair 250-50 Diskus] Montelukast [Singulair] 10 mg PO HS@199904/15/23 02/23/24 History Tamsulosin [Flomax] 0.4 mg PO DAILY@0800 04/15/23 02/23/24 History Albuterol Nebulized [Ventolin 2.5 mg INHALATION RT-BID 09/08/23 02/23/24 History Nebulized] Benralizumab [Fasenra] 30 mg SQ Q56D 09/08/23 02/23/24 History Calcium Carbonate [Calcium] 600 mg PO BID@1400,199909/08/23 02/23/24 History Cholecalciferol [Vitamin D3 (10 10 mcg PO BID@1400,199909/08/23 02/23/24 History Mcg = 400 Iu)] Docusate Sodium 250 mg PO BID@0800,1400 09/08/23 02/23/24 History Omeprazole [PriLOSEC] 40 mg PO DAILY@0800 09/08/23 02/23/24 History Zoledronic Acid [Zometa] 4 mg IV Q90D 09/08/23 02/23/24 History Magnesium 250 mg PO DAILY@0800 09/25/23 02/23/24 History Ondansetron Odt [Zofran ODT] 4 mg PO DAILY PRN 09/25/23 02/23/24 History HYDROcodone/APAP 10-325MG [[place] 1 tab PO Q6H PRN 11/08/23 02/23/24 History 10-325] Morphine Sulfate ER [Ms Contin] 30 mg PO BID PRN 11/08/23 02/23/24 History Rosuvastatin Calcium [Crestor] 40 mg PO DAILY@0800 11/08/23 02/23/24 History Dabrafenib (Tafinlar) 50mg Cap 50 mg PO BID 01/07/24 02/23/24 History Mirtazapine [Remeron] 15 mg PO HS@199901/07/24 02/23/24 History Trametinib Dimethyl Sulfoxide 0.5 mg PO BID 01/07/24 02/23/24 History [Mekinist] Metoprolol Succinate (ER) [Toprol 25 mg PO DAILY #30 tab 01/11/24 02/23/24 Rx XL] Furosemide [Lasix] 40 mg PO DAILY 02/10/24 02/23/24 History Megestrol [Megace] 400 mg PO TID PRN 02/10/24 02/23/24 History Ipratropium-Albuterol Nebulize 3 ml INHALATION RT-QID #120 each 02/15/24 1 04/25/23 Rx [Duoneb 0.5 mg-3 mg/3 ml Soln] Allergies Allergy/AdvReac Type Severity Reaction Status Date / Time No Known Allergies Allergy Verified 02/23/24 08:23 Physical Exam Vitals: Vital Signs Temp Pulse Resp BP Pulse Ox FiO2 02/23/24 10:24 98 20 117/60 100 02/23/24 06:30 111 H 18 101/63 100 02/23/24 04:00 92 18 106/60 100 02/23/24 03:00 90 18 100/52 98 02/23/24 02:00 73 18 92/64 99 02/23/24 01:00 101 H 18 111/69 98 02/23/24 00:00 71 18 107/70 98 02/22/24 23:41 50 02/22/24 23:30 54 L 20 121/64 99 12/25/24 23:01 100 02/22/24 23:00 101 H 20 98/60 82 L 02/22/24 22:39 97.8 F 126 H 22 112/73 94 L Intake and Output 02/22/24 02/23/24 02/23/24 22:59 06:59 14:59 Other: Weight 83.915 kg GENERAL EXAM: Alert, confused, frail, cachectic 78-year-old male, on a Ventimask, in no apparent distress. HEAD: Normocephalic. EYES: Normal reaction of pupils, equal size. NOSE: Clear with pink turbinates. THROAT: No erythema or exudates. NECK: No masses, no JVD. CHEST: No chest wall deformity. LUNGS: Equal air entry with diminished breath sounds over the entire left lung. CVS: S1 and S2 normal with no audible murmur, regular rhythm. ABDOMEN: No hepatosplenomegaly, normal bowel sounds, no guarding or rigidity. SPINE: No scoliosis or deformity SKIN: No rashes CENTRAL NERVOUS SYSTEM: No focal deficits, tone is normal in all 4 extremities. EXTREMITIES: There is no peripheral edema. No clubbing, no cyanosis. Peripheral pulses are intact. Results - Laboratory Findings CBC and BMP: 02/22/24 22:52 02/22/24 22:52 PT/INR, D-dimer PT 10.6 sec (10.0-12.5) 02/22/24 22:52 INR 1.0 (<1.2) 02/22/24 22:52 D-Dimer 2.17 mg/L FEU (<0.60) H 02/22/24 22:52 Abnormal lab findings: Abnormal Labs 02/22/24 02/22/24 02/22/24 22:52 22:52 22:52 RBC 3.90 L Hgb 12.2 L Hct 38.7 L Neutrophils # 9.1 H Lymphocytes # 0.6 L D-Dimer 2.17 H Potassium 5.4 H Glucose 111 H Alkaline Phosphatase 134 H Urine Protein U Marijuana (THC) Screen 02/23/24 02/23/24 00:26 00:26 RBC Hgb Hct Neutrophils # Lymphocytes # D-Dimer Potassium Glucose Alkaline Phosphatase Urine Protein Trace H U Marijuana (THC) Screen Detected H - Diagnostic Findings Chest x-ray: image reviewed CT scan - chest: image reviewed Assessment and Plan Assessment: Acute hypoxemic respiratory failure secondary to near complete opacification of the left lung, suspect progression of disease. CT scan of the chest revealed airspace consolidation throughout the entire left lung, consistent with diffuse lobar pneumonia. Debris occluding left lower lobe bronchi. Moderate left pleural effusion. Expansive lesion in the sternum measuring 6.8 x 2.0 cm suspect metastatic disease. No pulmonary embolism. Altered mental status secondary to above and possibly marijuana related. CT scan of the brain revealed no acute intracranial process Urine drug screen positive for marijuana Stage IV non-small cell lung cancer with liver and bone metastases previously on Tafinlar. Status post chemotherapy and radiation Recent admission and discharged February 15, 2024 for hypotension, hallucinations Rheumatoid arthritis Obstructive sleep apnea Hypertension Hyperlipidemia Chronic obstructive pulmonary disease Former smoker Plan: The patient was seen and evaluated Imaging, labs and medications reviewed Currently on a Ventimask Titrate the FiO2 as tolerated Continue ceftriaxone and azithromycin for now Check a procalcitonin Heparin for DVT prophylaxis Pepcid for GI prophylaxis D5 and half-normal saline at 50 mL/h Will plan for bronchoscopy tomorrow Cautious use of marijuana in the outpatient setting Overall prognosis remains guarded We will continue to follow and make further recommendations based on his clinical status I have personally seen and examined the patient, performed the documentation and the assessment and plan as written. Number of minutes spent on the visit: 20 Dictation was produced using [employer] dictation software. Please excuse any grammatical, word or spelling errors.
[2024-02-23] MEDS: FAMOTIDINE 20 MG/2 ML VIAL IV SCH (20:59)
[2024-02-23] MEDS: HEPARIN SODIUM,PORCINE 5,000 UNIT/ML 1 ML VIAL SQ SCH (20:59)
[2024-02-23] MEDS: PRAMIPEXOLE 0.5 MG TAB PO SCH (20:59)
[2024-02-23] MEDS: allopurinoL 100 MG TAB PO SCH (20:59)
--- NOTE | 2024-02-23 21:21 | P.CONS ---
History of Present Illness - Reason for Consult Consult date: 02/23/24 on treatement for BRAF + NSCLC Requesting physician: Jonathan Robles - Chief Complaint AMS, SOB - History of Present Illness Below is from consult documented 02/08. Pt was seen in ofc 02/16, has off dabrafenib/trametinib since Dec (took for about 1 month). Plan was to resume 03/05/24 and f/u 03/12/24. The patient is a 78-year-old white male patient, well-known to our service. He is followed by Dr. Monica Leigh in the outpatient setting. The patient was diagnosed with lung malignancy in 01/20, presenting with a left-sided lung mass, metastatic lesion in the sternum, as well as evidence of other areas of skeletal metastasis on subsequent PET scan. 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 The patient was initially initiated on treatment with [employer]PERATOR-16, carboplatin, and Tecentriq. His biomarker testing subsequently came back showing BRAF V600E mutation, which is typically found in non-small cell lung cancer. Other mutations usually seen in the small cell cancer were not noted. It was therefore determined that the predominant histology was adenocarcinoma. The patient was changed to carboplat in/[place]. However this had to be discontinued due to poor tolerance. He was switched to BRAF tageted combination with Encorafenib/Bimetinib. He had several issues on this combination with tolerance, including problems with recurrent infections. Due to this he had frequent dose delays, as well as dose interruptions. He was ultimately switched to Dabrafenib/Trametinib in 12/21. Admitted in Dec with weakness, decreased appetite, and hypotension. The week prior to this admission, he was complaining of chest pressure and shortness of breath, due to which a CTA was done that was negative for PE. Dopplers were also negative. OV 02/10/2024, found to be hypotensive and quite weak. He was also confused. Apparently symptoms had been developing over the last couple of days. The was also coughing more than usual, with expectoration of clear to dark phlegm. He was therefore sent into the emergency room, where he was found to be hypoxic. CT of the head was negative. Chest x-ray showed possible left- sided pneumonia and small pleural effusion. He was therefore admitted for further management. When seen in the emergency department patient reports that he felt so terrible yesterday that he "came in last night to ". There is reports in the chart of altered mental status. CTA was negative for PE but notably there was basically whiteout of the left lung. Patient denies having any fevers at home that he is aware of, no nausea or vomiting, oral irritation, chest pain, abdominal pain, acute changes in bowel or bladder habits, no swelling. He is overall very weak. Review of Systems 10 point review of systems is negative except as stated in HPI Past Medical History Past Medical History: Asthma, Cancer, COPD, GERD/Reflux, Hyperlipidemia, Hypertension, Pneumonia, Prostate Disorder, Rheumatoid Arthritis (RA), Sleep Apnea/CPAP/BIPAP Additional Past Medical History / Comment(s): cardiomyopathy, anemia, lung cancer diagnosed 12/29/2022 (last chemo finished 08/21/23, last radiation 06/2023) History of Any Multi-Drug Resistant Organisms: None Reported Past Surgical History: Hernia Repair, Joint Replacement, Orthopedic Surgery Additional Past Surgical History / Comment(s): colonoscopy,EGD, Scotty hip replac ments, scotty fx ankles, screws removed from rt ankle Past Anesthesia/Blood Transfusion Reactions: No Reported Reaction Past Psychological History: Depression Smoking Status: Former smoker Medications and Allergies Home Medications Medication Instructions Recorded Confirmed Type Pramipexole Di-HCl [Mirapex] 1.5 mg PO BID@0800,199901/03/14 02/23/24 History allopurinoL [Zyloprim] 100 mg PO HS@199901/03/14 02/23/24 History Albuterol Sulfate [Albuterol 2 puff INHALATION RT-Q4H PRN 04/15/23 02/23/24 History Sulfate Hfa] Ergocalciferol (Vitamin D2) 1,250 mcg PO Q14D 04/15/23 02/23/24 History [Drisdol (50,000 Iu)] Ferrous Sulfate [Iron (65 MG 975 mg PO DAILY@1400 04/15/23 02/23/24 History Elemental)] Fluticasone Propion/Salmeterol 2 puff INHALATION RT-BID 04/15/23 02/23/24 History [Advair 250-50 Diskus] Montelukast [Singulair] 10 mg PO HS@199904/15/23 02/23/24 History Tamsulosin [Flomax] 0.4 mg PO DAILY@0804/15/23 02/23/24 History Albuterol Nebulized [Ventolin 2.5 mg INHALATION RT-BID 09/08/23 02/23/24 History Nebulized] Benralizumab [Fasenra] 30 mg SQ Q56D 09/08/23 02/23/24 History Calcium Carbonate [Calcium] 600 mg PO BID@1400,199909/08/23 02/23/24 History Cholecalciferol [Vitamin D3 (10 10 mcg PO BID@1400,199909/08/23 02/23/24 History Mcg = 400 Iu)] Docusate Sodium 250 mg PO BID@0800,1400 09/08/23 02/23/24 History Omeprazole [PriLOSEC] 40 mg PO DAILY@0809/08/23 02/23/24 History Zoledronic Acid [Zometa] 4 mg IV Q90D 09/08/23 02/23/24 History Magnesium 250 mg PO DAILY@0809/25/23 02/23/24 History Ondansetron Odt [Zofran ODT] 4 mg PO DAILY PRN 09/25/23 02/23/24 History HYDROcodone/APAP 10-325MG [[place] 1 tab PO Q6H PRN 11/08/23 02/23/24 History 10-325] Morphine Sulfate ER [Ms Contin] 30 mg PO BID PRN 11/08/23 02/23/24 History Rosuvastatin Calcium [Crestor] 40 mg PO DAILY@0811/08/23 02/23/24 History Dabrafenib (Tafinlar) 50mg Cap 50 mg PO BID 01/07/24 02/23/24 History Mirtazapine [Remeron] 15 mg PO HS@199901/07/24 02/23/24 History Trametinib Dimethyl Sulfoxide 0.5 mg PO BID 01/07/24 02/23/24 History [Mekinist] Metoprolol Succinate (ER) [Toprol 25 mg PO DAILY #30 tab 01/11/24 02/23/24 Rx XL] Furosemide [Lasix] 40 mg PO DAILY 02/10/24 02/23/24 History Megestrol [Megace] 400 mg PO TID PRN 02/10/24 02/23/24 History Ipratropium-Albuterol Nebulize 3 ml INHALATION RT-QID #120 each 02/15/24 02/23/24 Rx [Duoneb 0.5 mg-3 mg/3 ml Soln] Allergies Allergy/AdvReac Type Severity Reaction Status Date / Time No Known Allergies Allergy Verified 02/23/24 08:23 Physical Exam Vitals: Vital Signs Temp Pulse Resp BP Pulse Ox FiO2 02/23/24 06:30 111 H 18 101/63 100 02/23/24 04:00 92 18 106/60 100 02/23/24 03:00 90 18 100/52 98 02/23/24 02:00 73 18 92/64 99 02/23/24 01:00 101 H 18 111/69 98 02/23/24 00:00 71 18 107/70 98 02/22/24 23:41 50 02/22/24 23:30 54 L 20 121/64 99 02/22/24 23:01 100 02/22/24 23:00 101 H 20 98/60 82 L 02/22/24 22:39 97.8 F 126 H 22 112/73 94 L Intake and Output 02/22/24 02/23/24 02/23/24 22:59 06:59 14:59 Other: Weight 83.915 kg - Constitutional General appearance: cooperative, no acute distress, thin - EENT Eyes: anicteric sclerae, EOMI ENT: hearing grossly normal, normal oropharynx - Neck Neck: no lymphadenopathy - Respiratory Respiratory: right: diminished, left: other (absent) - Cardiovascular tachycardia leg Peripheral Edema: bilateral: None - Gastrointestinal General gastrointestinal: no absent bowel sounds, no decreased bowel sounds, no distended, no hepatomegaly, no hyperactive bowel sounds, normal bowel sounds, no organomegaly, no rigid, scaphoid, soft, no splenomegaly, no tenderness, no umbilical hernia, no ventral hernia - Integumentary Integumentary: normal - Neurologic Neurologic: CNII-XII intact - Musculoskeletal Musculoskeletal: generalized weakness - Psychiatric Slightly confused at times but patient is oriented x 3, he is oriented to his situation as well Psychiatric: appropriate affect Results CBC & Chem 7: 02/22/24 22:52 02/22/24 22:52 Labs: Abnormal Lab Results - Last 24 Hours (Table) 02/22/24 02/22/24 02/22/24 Range/Units 22:52 22:52 22:52 RBC 3.90 L (4.30-5.90) m/uL Hgb 12.2 L (13.0-17.5) gm/dL Hct 38.7 L (39.0-53.0) % Neutrophils # 9.1 H (1.3-7.7) k/uL Lymphocytes # 0.6 L (1.0-4.8) k/uL D-Dimer 2.17 H (<0.60) mg/L FEU Potassium 5.4 H (3.5-5.1) mmol/L Glucose 111 H (74-99) mg/dL Alkaline Phosphatase 134 H (38-126) U/L Urine Protein (Negative) U Marijuana (THC) Screen (NotDetected) 02/23/24 02/23/24 Range/Units 00:26 00:26 RBC (4.30-5.90) m/uL Hgb (13.0-17.5) gm/dL Hct (39.0-53.0) % Neutrophils # (1.3-7.7) k/uL Lymphocytes # (1.0-4.8) k/uL D-Dimer (<0.60) mg/L FEU Potassium (3.5-5.1) mmol/L Glucose (74-99) mg/dL Alkaline Phosphatase (38-126) U/L Urine Protein Trace H (Negative) U Marijuana (THC) Screen Detected H (NotDetected) Chest x-ray: report reviewed CT scan - chest: report reviewed, image reviewed CT Scan - head: report reviewed Assessment and Plan (1) Altered mental status Current Visit: Yes Status: Acute Priority: Medium Code(s): R41.82 - ALTERED MENTAL STATUS, UNSPECIFIED SNOMED Code(s): 693254087 (2) COPD (chronic obstructive pulmonary disease) Current Visit: Yes Status: Suspected Priority: High Code(s): J44.9 - CHRONIC OBSTRUCTIVE PULMONARY DISEASE, UNSPECIFIED SNOMED Code(s): 28499443 (3) Pneumonia Current Visit: Yes Status: Suspected Priority: High Code(s): J18.9 - PNEUMONIA, UNSPECIFIED ORGANISM SNOMED Code(s): 108988004 (4) Lung cancer Current Visit: Yes Status: Acute Priority: High Code(s): C34.90 - MALIGNANT NEOPLASM OF UNSP PART OF UNSP BRONCHUS OR LUNG SNOMED Code(s): 507614010 Plan: Altered mental status -Mild at this time, improved since admit. Likely 2/2 hypoxia -CT of the head without contrast, no evidence of midline shift, mass effect or intracranial bleed COPD/pneumonia -CTA of the chest negative for PE but, there is complete left lung whiteout-CXR same findings. It has been discussed with the patient, by both Medical Oncology as well as Pulmonary, concerns that possibly this whiteout is secondary to disease progression. It was discussed with the patient that the plan is to treat for pneumonia and see if resp status improves. Reviewed Pulmonary plans, possible bronchoscopy to assess the mainstem bronchus, agree with plan. BRAF positive non-small cell lung cancer, metastatic disease -Patient unfortunately has been trialed on 2 BRAF inhibitors. Most recent treatment was with dabrafenib/tramentinib November to December but, unfortunately patient has not been able to tolerate treatment. -Plans were to resume March 05 with a reduced dose and follow-up with Dr. Leigh 03/12 to see if tolerating During our discussion with patient today he does seem to be questioning if he wants to continue on treatment. He is agreeable right now for antibiotics and bronchoscopy to assess his situation. Will paln for discussion with patient and his family once there is more information. Will discuss treatment options, including hospice care as appropriate Doctor attests: I performed a history and physical examination of this patient, developed impression and plan of care. Discussed with dictator. I agree with dictators note, documented as a scribe.
[2024-02-24 07:19] LABS: Basophils % (A) 0 %; Eosinophils % (A) 0 %; HCT 31.7 % (39.0-53.0); Hypochromasia Slight; Lymphocytes # (A) 1.3 k/uL (1.0-4.8); Lymphocytes % (A) 27 %; MCH 31.1 pg (25.0-35.0); MCV 100.1 fL (80.0-100.0); Macrocytosis Slight; Mean Platelet Volume 8.7; Monocytes # (A) 0.3 k/uL (0-1.0); Monocytes % (A) 7 %; Neutrophils # (A) 3.1 k/uL (1.3-7.7); Neutrophils % (A) 64 %; Platelet Count 237 k/uL (150-450); RBC 3.16 m/uL (4.30-5.90); RDW 15.6 % (11.5-15.5); WBC 4.9 k/uL (3.8-10.6)
[2024-02-24 07:20] LABS: HGB 9.8 gm/dL (13.0-17.5)
[2024-02-24 07:30] LABS: African American GFR (CKD) 86 (>60 ml/min/1.73 sqM); Anion Gap 6 mmol/L; Blood Urea Nitrogen 13 mg/dL (9-20); Calcium 8.8 mg/dL (8.4-10.2); Carbon Dioxide 30 mmol/L (22-30); Chloride 102 mmol/L (98-107); Glucose 95 mg/dL (74-99); Non-African American GFR(CKD) 75 (>60 ml/min/1.73 sqM); Potassium 4.1 mmol/L (3.5-5.1); Sodium 138 mmol/L (137-145)
--- NOTE | 2024-02-24 07:49 | XR ---
EXAMINATION TYPE: XR chest 2V DATE OF EXAM: 02/24/2024 COMPARISON: 02/22/2024 CLINICAL INDICATION: Male, 78 years old with history of pneumonia; , TECHNIQUE: XR chest 2V views of the chest. FINDINGS: Interval significant reduction in opacification left thorax. No sizable pneumothorax. Left lower lobe consolidation and small pleural effusion persist. Underlying COPD. 5 mm nodule in the right midlung. Hypertrophic changes of the spine. The AC joints. IMPRESSION: 1. Interval marked improvement with reduction of opacification left thorax. Small left pleural effusi on and basilar consolidation noted. [facility], , 02/24/2024 7:46 AM
[2024-02-24] MEDS: TAMSULOSIN 0.4 MG CAP.ER.24H PO SCH (08:31)
[2024-02-24] MEDS: FUROSEMIDE 40 MG TAB PO SCH (08:31)
[2024-02-24] MEDS: ATORVASTATIN 80 MG TAB PO SCH (08:31)
[2024-02-24] MEDS: AZITHROMYCIN 500 MG TAB PO SCH (08:32)
--- NOTE | 2024-02-24 10:27 | P.PN ---
Subjective This is a pleasant 78 years old male with past medical history of left lung cancer and he follow-up with Dr. Rivero and chronic hypoxic respiratory failure on 3 L oxygen via nasal cannula and other medical problems as below Presents because of confusion, patient was hard to wake up yesterday by his and he was unresponsive for some time. At baseline he is awake alert oriented in time 1-2. He has possible also metastatic disease and last treatment he received for his cancer disease was last August However patient does not complain from shortness of breath although he is using the mask and his oxygen requirement went up to 15 L/min. No coughing. No left- sided chest pain He has central chest pain in the lower chest which is coincides with sternal lesion seen on CAT scan below. No specific GI/ symptom, complains from dizziness and decreased appetite but no headache weakness or numbness At baseline he uses a walker Currently he is not a smoker, not drink alcohol. Patient is afebrile but blood pressure is borderline 101/63. He has unremarkable CBC, BMP, LFT, INR, troponin and urine analysis. D-dimer was elevated 2.17, proBNP was elevated to 3610. Urine drug screen is positive for marijuana EKG showing sinus tachycardia with no ST-T changes Chest x-ray showing opacified left lung may be large pleural effusion versus large atelectasis CTA of the chest showing no PE but there is airspace consolidative and through entire left lung with diffuse left lower lobe opacification Patient started on ceftriaxone and Zithromax 02/24/24 Patient sitting at the bed age, complaining from mild dyspnea, currently he is saturating high 90s on 6 L oxygen compared to 3 L at home. His central chest pain from his sternal lesion suspicious to be metastasis is improved, currently no chest pain However he complains from right knee pain, there is no significant swelling however there is warmth. Therefore we will check x-ray of the right knee. Also may benefit from ultrasound evaluation. His pro- Calcitonin is elevated 32.7 Repeat chest x-ray showing his left near complete opacification of the left lung is significantly improved and his left leg is opened but there is evidence of left pleural effusion. Hemodynamically stable. WBC dropped from 10 down to 4.9 and hemoglobin 12 to down to 9.8 which is his baseline most likely under the effect of hemodilution. BMP is unremarkable He remains on ceftriaxone and Zithromax and D5 half-normal saline at 50 mL/h Review of systems CONSTITUTIONAL: No fever, no malaise, no fatigue. HEENT: No recent visual problems or hearing problems. Denied any sore throat HEMATOLOGICAL: Denies any bleeding or petechiae. GENITOURINARY: Denies any burning micturition, frequency, or urgency. MUSCULOSKELETAL/RHEUMATOLOGICAL: Denies any joint pain, swelling, or any muscle pain. ENDOCRINE: Denies any polyuria or polydipsia. Active Medications Generic Name Dose Route Start Last Admin Trade Name Freq PRN Reason Stop Dose Admin Hydrocodone Bitart/Acetaminophen 1 each 02/23/24 09:54 Hydrocodone/Apap 10-325mg 1 Each Tab PO Q6H PRN Pain Allopurinol 100 mg 02/23/24 20:00 02/23/24 20:59 Allopurinol 100 Mg Tab PO 100 mg HS@2000 CLYDE Administration Atorvastatin Calcium 80 mg 02/24/24 08:00 02/24/24 08:31 Atorvastatin 80 Mg Tab PO 80 mg DAILY@0800 CLYDE Administration Azithromycin 500 mg 02/24/24 09:00 02/24/24 08:32 Azithromycin 500 Mg Tab PO 02/25/24 09:01 500 mg DAILY CLYDE Administration Protocol Famotidine 20 mg 02/23/24 21:00 02/24/24 08:30 Famotidine 20 Mg/2 Ml Vial IV 20 mg Q12HR CLYDE Administration Ferrous Sulfate 975 mg 02/23/24 14:00 02/23/24 13:12 Ferrous Sulfate 325 Mg Tab PO 975 mg DAILY@1400 CLYDE Administration Furosemide 40 mg 02/24/24 09:00 02/24/24 08:31 Furosemide 40 Mg Tab PO 40 mg DAILY CLYDE Administration Heparin Sodium (Porcine) 5,000 unit 02/23/24 21:00 02/24/24 08:30 Heparin Sodium,Porcine 5,000 Unit/Ml 1 Ml Vial SQ 5,000 unit Q12HR CLYDE Administration Ceftriaxone Sodium 2 gm/ 50 mls @ 100 mls/hr 02/24/24 09:00 02/24/24 08:32 Sodium Chloride IVPB 02/27/24 09:29 100 mls/hr Q24HR CLYDE Administration Protocol Dextrose/Sodium Chloride 1,000 mls @ 50 mls/hr 02/23/24 10:00 02/24/24 05:20 Dextrose 5%-1/2ns Iv Soln IV Not Given .Q20H [facility] Ondansetron HCl 4 mg 02/23/24 09:54 Ondansetron Odt 4 Mg Tab PO DAILY PRN Nausea Pramipexole Dihydrochloride 1.5 mg 02/23/24 20:00 02/24/24 08:31 Pramipexole 0.5 Mg Tab PO 1.5 mg BID@0800,1999 [facility] Administration Tamsulosin HCl 0.4 mg 02/24/24 08:00 02/24/24 08:31 Tamsulosin 0.4 Mg Cap.Er.24h PO 0.4 mg DAILY@0800 CLYDE Administration Objective - Vital Signs Vital signs: Vital Signs Temp 97.7 F 02/24/24 08:30 Pulse 103 H 02/24/24 08:30 Resp 18 02/24/24 08:30 BP 117/63 02/24/24 08:30 Pulse Ox 99 02/24/24 08:30 FiO2 50 02/22/24 23:41 Intake & Output 02/23/24 02/24/24 02/24/24 18:59 06:59 18:59 Weight 74.7 kg Other: Voiding Method Toilet Toilet # Voids 1 - Exam GENERAL: The patient is alert and oriented x3, not in any acute distress. Well developed, well nourished. HEENT: Pupils are round and equally reacting to light. EOMI. No scleral icterus. No conjunctival pallor. Normocephalic, atraumatic. No pharyngeal erythema. No thyromegaly. CARDIOVASCULAR: S1 and S2 present. No murmurs, rubs, or gallops. -PULMONARY: Chest is clear to auscultation, no wheezing , no crackles. Decreased breath sounds especially in the left lower lung ABDOMEN: Soft, nontender, nondistended, normoactive bowel sounds. No palpable organomegaly. MUSCULOSKELETAL: No joint swelling or deformity. EXTREMITIES: No cyanosis, clubbing, or pedal edema. NEUROLOGICAL: Gross neurological examination did not reveal any focal deficits. SKIN: No rashes. no petechiae. Decreased breath sounds especially in the left lower lung - Labs CBC & Chem 7: 02/24/24 06:08 02/24/24 06:08 Labs: Abnormal Lab Results - Last 24 Hours (Table) 02/23/24 02/24/24 Range/Units 14:23 06:08 RBC 3.16 L (4.30-5.90) m/uL Hgb 9.8 L D (13.0-17.5) gm/dL Hct 31.7 L (39.0-53.0) % MCV 100.1 H (80.0-100.0) fL RDW 15.6 H (11.5-15.5) % Procalcitonin 32.70 H (0.02-0.50) ng/mL Assessment and Plan Assessment: Metabolic encephalopathy Almost complete opacification of the left hemithorax suspicious for diffuse lobar pneumonia, versus large atelectasis or pleural effusion Sternal lesion 6.8 x 2 cm suspicious for metastatic disease Left lung cancer and he follow-up with Dr. Alvarado whom was consulted Plan: Continue with antibiotic ceftriaxone and Zithromax Start IV fluid D5 half-normal saline at 50 mL/h Pulmonary team consult Hematology/oncology consult Follow-up culture results Labs and medication were reviewed.. Continue same treatment. Continue with symptomatic treatment. Resume home medication. Monitor labs and vitals. DVT and GI prophylaxis. Further recommendations as per clinical course of the patient DVT prophylaxis: Subcutaneous heparin GI Prophylaxis: Pepcid PT/OT: Pending Prognosis is guarded
--- NOTE | 2024-02-24 11:31 | XR ---
Right knee History knee pain COMPARISON: 12/11/2018 TECHNIQUE: 2 views right knee were obtained. FINDINGS: The joint spaces are well-preserved. There is no joint effusion. There is enthesopathy involving the superior and inferior aspect of the patella. There are scattered arterial vascular calcification. There is stable mild to moderate degenerative change of the tibiofibular articulation. There is no acute fracture. There is no focal intraosseous abnormality. IMPRESSION: 1. 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 2. Medial and lateral knee compartment joint spaces well-preserved. 3. no joint effusion. 4. No acute trauma [facility], Workstation: [email or web address], 02/24/2024 11:28 AM
--- NOTE | 2024-02-24 12:11 | US ---
EXAMINATION TYPE: US venous doppler duplex LE RT DATE OF EXAM: 02/24/2024 10:28 AM COMPARISON: Bilateral lower extremity venous ultrasound 02/02/2024 CLINICAL INDICATION: Male, 78 years old with history of knee pain , warm leg; rt knee pain TECHNIQUE: The lower extremity deep venous system is examined utilizing real time linear array sonog riccardo with graded compression, color doppler sonography, and spectral doppler. SIDE PERFORMED: Right FINDINGS: VESSELS IMAGED: Common Femoral Vein Deep Femoral Vein Greater Saphenous Vein * Femoral Vein Popliteal Vein Small Saphenous Vein * Proximal Calf Veins (* superficial vessels) Right Leg: Negative for DVT, Color Doppler imaging shows patency of the vessels. Spectral waveforms are within normal limits. IMPRESSION: No evidence of deep vein thrombosis of the right lower extremity. [facility], , 02/24/2024 12:09 PM
[2024-02-24] MEDS ORDERED: PROPOFOL 10 MG/ML 20 ML VIAL IV ONE (12:50)
[2024-02-24] MEDS ORDERED: LIDOCAINE 1% INJ 10MG/ML (20 ML MDV) ONE (12:50)
[2024-02-24] MEDS: IV FLUID CONTINUATION 1,000 ML IV ONE (13:47)
--- NOTE | 2024-02-24 14:03 | P.PN ---
Subjective Progress Note Date: 02/24/24 Principal diagnosis: Acute hypoxic respiratory failure with near complete opacification of left lung most likely secondary to mucous plugging and underlying non-small cell lung can cer involving left lower lobe This is a 78-year-old male patient with a history of hypertension, h yperlipidemia, mild intermittent bronchial asthma, former smoker on home oxygen at 3 L. 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 He had undergone chemotherapy and radiation through July 2023. He is most recently on dabrafenib Tafinlar. He was just discharged from here February 15, 2024 for hypoxic respiratory failure, hypotension and hallucinations. He had been at home recovering with his when she found him to be minimally responsive and severe weakness unable to get him out of bed. CT scan of the brain revealed no acute intracranial hemorrhage, midline shift or mass effect. X-ray reveals opacified left hemithorax with possible left pleural effusion or atelectatic changes. CT scan of the chest revealed airspace consolidation throughout the entire left lung, consistent with diffuse lobar pneumonia. Debris occluding left lower lobe bronchi. Moderate left pleural effusion. Expansive lesion in the sternum measuring 6.8 x 2.0 cm suspect metastatic disease. No pulmonary embolism. White count 10.3. Hemoglobin 12.2. Platelets 239. INR 1.0. D- dimer 2.17. Sodium 140. Potassium 5.4. Bicarb 27. BUN 20. Creatinine 1.04. Glucose 111. Urinalysis clean. Urine drug screen positive for marijuana. He is seen today in consultation in the emergency department. He remains altered. Poor historian. He is currently maintaining O2 saturations up to 100% on a Ventimask. Afebrile. Hemodynamically stable. Seen today on 02/24/2024, patient is doing well, his chest x-ray showed signific ant improvement most likely the patient had mucous plugging involving the left mainstem bronchus which apparently resolved on its own and now there is complete reinflation of the left lung, and continues to have some left lower lobe atelectasis. Previous CT of the chest showed soft tissue mass in the left infrahilar area and this was endobronchially visualized today, please refer to the bronchoscopy report. Biopsies were taken from that endobronchial lesion in the left lower lobe, and on bronchoscopy there was no evidence of mucous plugging which has apparently resolved. Objective - Vital Signs Vital signs: Vital Signs Temp 98.2 F 02/24/24 13:43 Pulse 102 H 02/24/24 13:43 Resp 20 02/24/24 13:43 BP 123/58 02/24/24 13:43 Pulse Ox 98 02/24/24 13:43 FiO2 50 02/22/24 23:41 Intake & Output 02/23/24 02/24/24 02/24/24 18:59 06:59 18:59 Weight 74.7 kg 74.7 kg Other: Voiding Method Toilet Toilet # Voids 1 - Exam GENERAL EXAM: Revealed 78-year-old white male in no distress on nasal cannula HEAD: Normocephalic. EYES: Normal reaction of pupils, equal size. NOSE: Clear with pink turbinates. THROAT: No erythema or exudates. NECK: No masses, no JVD. CHEST: No chest wall deformity. LUNGS: Diminished breath sounds at the left base no rhonchi no wheezes CVS: S1 and S2 normal with no audible murmur, regular rhythm. ABDOMEN: No hepatosplenomegaly, normal bowel sounds, no guarding or rigidity. SPINE: No scoliosis or deformity SKIN: No rashes CENTRAL NERVOUS SYSTEM: Alert oriented x 3 no gross deficit EXTREMITIES: No clubbing edema or cyanosis - Labs CBC & Chem 7: 02/24/24 06:08 02/24/24 06:08 Labs: Abnormal Lab Results - Last 24 Hours (Table) 02/23/24 02/24/24 Range/Units 14:23 06:08 RBC 3.16 L (4.30-5.90) m/uL Hgb 9.8 L D (13.0-17.5) gm/dL Hct 31.7 L (39.0-53.0) % MCV 100.1 H (80.0-100.0) fL RDW 15.6 H (11.5-15.5) % Procalcitonin 32.70 H (0.02-0.50) ng/mL Microbiology - Last 24 Hours (Table) 02/22/24 23:05 Blood Culture - Preliminary Blood Assessment and Plan Assessment: Impression: Acute hypoxemic respiratory failure secondary to near complete opacification of the left lung, resolved on its own nonetheless patient underwent bronchoscopy and there was evidence of endobronchial tumor in the posterior segment of the left lower lobe, biopsies were taken. Altered mental status secondary to above and possibly marijuana related. CT scan of the brain revealed no acute intracranial process Urine drug screen positive for marijuana stage IV non-small cell lung cancer with liver and bone metastases previously on Tafinlar. Status post chemotherapy and radiation Recent admission and discharged February 15, 2024 for hypotension, hallucinations Rheumatoid arthritis Obstructive sleep apnea Hypertension Hyperlipidemia Chronic obstructive pulmonary disease Former smoker Recommendation: Continue present supportive care measures continue antibiotics, adjust based on final cultures from BAL of the left lower lobe Continue bronchodilators Awaiting biopsy report from biopsy of endobronchial tumor left lower lobe today. Will continue to follow Time with Patient: Less than 30
--- NOTE | 2024-02-24 15:20 | P.PN ---
Subjective Progress Note Date: 02/24/24 Reporting some improvement in breathing today, c/o nasal congestion. Repeat CXR showing marked interval improvement of opacification of left thorax . Plan for bronch today. Objective - Vital Signs Vital signs: Vital Signs Temp 98.1 F 02/24/24 11:10 Pulse 75 02/24/24 11:10 Resp 16 02/24/24 11:10 BP 118/62 02/24/24 11:10 Pulse Ox 99 02/24/24 11:10 FiO2 50 02/22/24 23:41 Intake & Output 02/23/24 02/24/24 02/24/24 18:59 06:59 18:59 Weight 74.7 kg 74.7 kg Other: Voiding Method Toilet Toilet # Voids 1 - Constitutional General appearance: Present: no acute distress - EENT Eyes: Present: anicteric sclerae, EOMI - Respiratory Details: breathing even and unlabored - Gastrointestinal General gastrointestinal: Present: soft. Absent: tenderness - Integumentary Integumentary: Absent: cyanotic - Musculoskeletal Musculoskeletal: Present: generalized weakness - Psychiatric Psychiatric: Present: A&O x's 3 - Labs CBC & Chem 7: 02/24/24 06:08 02/24/24 06:08 Labs: Abnormal Lab Results - Last 24 Hours (Table) 02/23/24 02/24/24 Range/Units 14:23 06:08 RBC 3.16 L (4.30-5.90) m/uL Hgb 9.8 L D (13.0-17.5) gm/dL Hct 31.7 L (39.0-53.0) % MCV 100.1 H (80.0-100.0) fL RDW 15.6 H (11.5-15.5) % Procalcitonin 32.70 H (0.02-0.50) ng/mL Microbiology - Last 24 Hours (Table) 02/22/24 23:05 Blood Culture - Preliminary Blood - Imaging and Cardiology Chest x-ray: report reviewed Assessment and Plan (1) Altered mental status Current Visit: Yes Status: Acute Priority: Medium Code(s): R41.82 - ALTERED MENTAL STATUS, UNSPECIFIED SNOMED Code(s): 809599786 (2) Lung cancer Current Visit: Yes Status: Acute Priority: High Code(s): C34.90 - MA LIGNANT NEOPLASM OF UNSP PART OF UNSP BRONCHUS OR LUNG SNOMED Code(s): 36 7069600 (3) COPD (chronic obstructive pulmonary disease) Current Visit: Yes Status: Suspected Priority: High Code(s): J44.9 - CHRONIC OBSTRUCTIVE PULMONARY DISEASE, UNSPECIFIED SNOMED Code(s): 71583416 (4) Pneumonia Current Visit: Yes Status: Suspected Priority: High Code(s): J18.9 - PNEUMONIA, UNSPECIFIED ORGANISM SNOMED Code(s): 984246279 Plan: Altered mental status -Mild at this time, improved since admit. Likely 2/2 hypoxia -CT of the head without contrast, no evidence of midline shift, mass effect or intracranial bleed COPD/pneumonia -CTA of the chest negative for PE but, there is complete left lung whiteout-CXR same findings. It has been discussed with the patient, by both Medical Oncology as well as Pulmonary, concerns that possibly this whiteout is secondary to disease progression. It was discussed with the patient that the plan is to treat for pneumonia and see if resp status improves. -Pulmonary plans for bronchoscopy today to assess the mainstem bronchus, agree with plan. -Repeat CXR showing marked interval improvement of opacification of left thorax BRAF positive non-small cell lung cancer, metastatic disease -Patient unfortunately has been trialed on 2 BRAF inhibitors. Most recent treatment was with dabrafenib/tramentinib November to December but, unfortunately patient has not been able to tolerate treatment. -Plans were to resume March 05 with a reduced dose and follow-up with Dr. Leigh 03/12 to see if tolerating During our discussion with patient he does seem to be questioning if he wants to continue on treatment. He is agreeable right now for antibiotics and bronchoscopy to assess his situation. Will plan for discussion with patient and his family once there is more information. Will discuss treatment options, including hospice care as appropriate
--- NOTE | 2024-02-24 15:30 | XR ---
EXAMINATION TYPE: XR chest 1V portable DATE OF EXAM: 02/24/2024 3:25 PM COMPARISON: Chest radiographs from 02/24/2024, CTA chest 02/22/2024 TECHNIQUE: XR chest 1V portable Portable AP radiograph of the chest. CLINICAL INDICATION:Male, 78 years old with history of post bronchoscopy, tachypnea; FINDINGS: Lungs/Pleura: Right lung is clear. No pneumothorax. Increasing left pleural effusion with atelectasis /consolidation. Pulmonary vascularity: Unremarkable. Heart/mediastinum: Cardiomediastinal silhouette is partially obscured due to overlying and adjacent o pacities. Atherosclerotic calcifications are seen in the aorta. Musculoskeletal: No acute osseous pathology. IMPRESSION: Increasing left pleural effusion with atelectasis/consolidation. [facility], , 02/24/2024 3:28 PM
--- NOTE | 2024-02-24 20:01 | OP ---
OPERATIVE REPORT DATE OF SERVICE : PROCEDURES PERFORMED: Bronchoscopy, bronchoalveolar lavage of the left lower lobe, endobronchial biopsies of endobronchial tumor noted in the posterior segment of the left lower lobe. PREOPERATIVE DIAGNOSIS: Left lung opacification, most likely secondary to mucus plugging. POSTOPERATIVE DIAGNOSIS: Left lower lobe endobronchial tumor, highly suspicious for malignancy. ANESTHESIA USED: IV conscious sedation. DESCRIPTION OF PROCEDURE: The patient was brought into the bronchoscopy suite, placed in a supine position, treated as per bronchoscopy protocol, the patient was monitored, O2 saturations were monitored via pulse oximetry, cardiac rhythm was continuously monitored, and blood pressure was intermittently monitored. A bite block was applied, a Ventimask was placed, and then after adequate IV conscious sedation, the bronchoscope was advanced through the bite block down to the area of the vocal cords, which were patent. Lidocaine applied over the vocal cords, and then the bronchoscope was advanced further down. Thorough examination was done of the trachea, júnior, right upper lobe, right middle lobe, right lower lobe, left upper lobe, lingula, and left lower lobe, they were all normal except for the finding noted in the posterior segment of the left lower lobe, there was an endobronchial tumor that seemed to be glistening, multiple biopsies were taken from the tumor, bronchoalveolar lavage was done of the left lower lobe, procedure was well tolerated, no complications, blood loss is minimal, less than 10 mL. The procedure was well tolerated, and no complications. MMODL / IJN: [id number] /
[2024-02-25 03:59] LABS: Glucose,Whole Blood 158 mg/dL (70-110)
[2024-02-25 04:18] LABS: Glucose,Whole Blood 152 mg/dL (70-110)
[2024-02-25 07:13] LABS: Basophils % (A) 0 %; Eosinophils % (A) 0 %; HCT 32.6 % (39.0-53.0); HGB 10.2 gm/dL (13.0-17.5); Hypochromasia Marked; Lymphocytes # (A) 0.9 k/uL (1.0-4.8); Lymphocytes % (A) 12 %; MCH 31.6 pg (25.0-35.0); MCHC 31.3 g/dL (31.0-37.0); MCV 101.2 fL (80.0-100.0); Macrocytosis Slight; Mean Platelet Volume 8.2; Monocytes # (A) 0.5 k/uL (0-1.0); Monocytes % (A) 7 %; Neutrophils % (A) 79 %; Platelet Count 195 k/uL (150-450); RBC 3.23 m/uL (4.30-5.90); RDW 14.8 % (11.5-15.5); WBC 7.6 k/uL (3.8-10.6)
--- NOTE | 2024-02-25 07:24 | XR ---
EXAMINATION TYPE: XR chest 1V portable DATE OF EXAM: 02/25/2024 4:36 AM COMPARISON: Chest radiograph from one day prior. CLINICAL INDICATION: Male, 78 years old with history of LLL collapse; TECHNIQUE: XR chest 1V portable Frontal view of the chest. FINDINGS: Lungs/Pleura: Complete obscuration of the left hemithorax now. There is no evidence of right pleural effusion, focal consolidation, or pneumothorax. Pulmonary vascularity: Unremarkable. Heart/mediastinum: Cardiomediastinal silhouette is unremarkable. Musculoskeletal: No acute osseous pathology. IMPRESSION: Now complete opacification of the left lung likely secondary to large pleural effusion with associate d atelectasis. [facility], , 02/25/2024 7:21 AM
[2024-02-25 07:41] LABS: African American GFR (CKD) 80 (>60 ml/min/1.73 sqM); Anion Gap 3 mmol/L; Blood Urea Nitrogen 12 mg/dL (9-20); Calcium 8.6 mg/dL (8.4-10.2); Carbon Dioxide 36 mmol/L (22-30); Chloride 101 mmol/L (98-107); Glucose 133 mg/dL (74-99); Non-African American GFR(CKD) 69 (>60 ml/min/1.73 sqM); Potassium 4.4 mmol/L (3.5-5.1); Sodium 140 mmol/L (137-145)
[2024-02-25] MEDS ORDERED: IPRATROPIUM-ALBUTEROL 3 ML NEB INHALATION PRN (09:40)
[2024-02-25] MEDS: NOREPINEPHRINE 4 MG in SODIUM CHLORIDE 0.9% 250 ML IV SCH (10:15)
[2024-02-25] MEDS: SODIUM CHLORIDE 0.9% 1,000 ML IV ONE (10:15)
[2024-02-25] MEDS: MORPHINE SULFATE 4 MG/ML SYRINGE IVP STA (10:22)
[2024-02-25] MEDS: SUCCINYLCHOLINE CHLORIDE 200 MG/10 ML VIAL IV STA (10:23)
--- NOTE | 2024-02-25 10:55 | XR ---
EXAMINATION TYPE: XR chest 1V portable DATE OF EXAM: 02/25/2024 10:47 AM COMPARISON: Chest radiographs from 02/17/2024 CLINICAL INDICATION: Male, 78 years old with history of Tube placement; TECHNIQUE: XR chest 1V portable Frontal view of the chest. FINDINGS: Lungs/Pleura: There is no evidence of pleural effusion, focal consolidation, or pneumothorax. Pulmonary vascularity: Unremarkable. Heart/mediastinum: Cardiomediastinal silhouette is unremarkable. Musculoskeletal: No acute osseous pathology. Endotracheal tube 5.4 cm Above of the júnior. Nasogastric tube in appropriate position. IMPRESSION: Decrease in left pleural effusion/atelectasis with improved aeration left lung. [facility], , 02/25/2024 10:53 AM
[2024-02-25 11:20] LABS: ABG Base Excess 3.6 mmol/L; ABG HCO3 33 mmol/L (21-25); ABG Oxygen Saturation >100.0 % (94-97); ABG PH 7.23 (7.35-7.45); ABG PO2 229 mmHg (83-108); ABG TCO2 35 mmol/L (19-24)
[2024-02-25 11:22] LABS: ABG PCO2 78 mmHg (35-45); Allen Test Performed? no
[2024-02-25] MEDS: FUROSEMIDE 10 MG/ML 4 ML VIAL IV SCH (11:43)
[2024-02-25] MEDS: IPRATROPIUM-ALBUTEROL 3 ML NEB INHALATION SCH (14:10)
--- NOTE | 2024-02-25 14:14 | P.PN ---
Subjective Progress Note Date: 02/25/24 Principal diagnosis: Acute hypoxic respiratory failure with near complete opacification of left lung most likely secondary to mucous plugging and underlying non-small cell lung can cer involving left lower lobe This is a 78-year-old male patient with a history of hypertension, h yperlipidemia, mild intermittent bronchial asthma, former smoker on home oxygen at 3 L. 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 He had undergone chemotherapy and radiation through July 2023. He is most recently on dabrafenib Tafinlar. He was just discharged from here February 15, 2024 for hypoxic respiratory failure, hypotension and hallucinations. He had been at home recovering with his when she found him to be minimally responsive and severe weakness unable to get him out of bed. CT scan of the brain revealed no acute intracranial hemorrhage, midline shift or mass effect. X-ray reveals opacified left hemithorax with possible left pleural effusion or atelectatic changes. CT scan of the chest revealed airspace consolidation throughout the entire left lung, consistent with diffuse lobar pneumonia. Debris occluding left lower lobe bronchi. Moderate left pleural effusion. Expansive lesion in the sternum measuring 6.8 x 2.0 cm suspect metastatic disease. No pulmonary embolism. White count 10.3. Hemoglobin 12.2. Platelets 239. INR 1.0. D- dimer 2.17. Sodium 140. Potassium 5.4. Bicarb 27. BUN 20. Creatinine 1.04. Glucose 111. Urinalysis clean. Urine drug screen positive for marijuana. He is seen today in consultation in the emergency department. He remains altered. Poor historian. He is currently maintaining O2 saturations up to 100% on a Ventimask. Afebrile. Hemodynamically stable. Seen today on 02/24/2024, patient is doing well, his chest x-ray showed signific ant improvement most likely the patient had mucous plugging involving the left mainstem bronchus which apparently resolved on its own and now there is complete reinflation of the left lung, and continues to have some left lower lobe atelectasis. Previous CT of the chest showed soft tissue mass in the left infrahilar area and this was endobronchially visualized today, please refer to the bronchoscopy report. Biopsies were taken from that endobronchial lesion in the left lower lobe, and on bronchoscopy there was no evidence of mucous plugging which has apparently resolved. Patient was seen today 02/25/2024, early this morning the patient was transferred to ICU mostly because he was developing more lethargy, and worsening chest x-ray showing another episode of complete opacification of the left lung. I saw the patient in the ICU, discussed his condition with family at bedside, and recommended intubation, also recommended bronchoscopy and suctioning of mucous plugs from his left lung. Family agreed to the procedure, hence I went ahead and performed intubation, bronchoscopy and BAL of the left lung. Until I cleared all the mucous plugs from the airways. Please refer to the operative report. Patient is now on assist-control rate of 18 tidal volume 450 FiO2 of 100% and PEEP of 5ABG showed a pO2 of 229 pCO2 78 pH of 7.23 hence increased his respiratory rate to 24 and I cut down on the FiO2 down to 50%. Cultures are pending, patient remains empirically on antibiotics, and he is also on bronchodilators for his COPD. WBC count 7.6 hemoglobin 10.2, Basic metabolic profile/electrolytes were noted to be normal. Cultures from BAL are pending. Empirically patient is on ceftriaxone, however will change antibiotics based on the next BAL culture Objective - Vital Signs Vital signs: Vital Signs Temp 99.0 F 02/25/24 12:00 Pulse 87 02/25/24 13:00 Resp 24 02/25/24 13:00 BP 108/68 02/25/24 12:45 Pulse Ox 100 02/25/24 13:00 FiO2 80 02/25/24 12:00 Intake & Output 02/24/24 02/25/24 02/25/24 18:59 06:59 18:59 Intake Total 50 100 652.348 Output Total 600 0 300 Balance -550 100 352.348 Weight 74.7 kg 74.7 kg Intake: IV 50 100 419 0.9 60 Dextrose 5%-0.45% NaCl 1, 100 350 000 ml @ 50 mls/hr IV . Q20H [facility] Rx#:[id number] Pressure bag 9 Intake, IV Titration 163.348 Amount Norepinephrine 4 mg In 39.892 Sodium Chloride 0.9% 250 ml @ 0.03 MCG/KG/MIN 8. 538 mls/hr IV .Q24H [facility] Rx#:[id number] cefTRIAXone 2 gm In 100 Sodium Chloride 0.9% 50 ml @ 100 mls/hr IVPB Q24HR [facility] Rx#:[id number] propofoL 1,000 mg In 23.456 Empty Bag 1 bag @ 15 MCG/ KG/MIN 6.723 mls/hr IV . [id number] [facility] Rx#:[id number] Tube Feeding 10 Other 60 Output: Urine 600 0 300 Other: Voiding Method Toilet Toilet Indwelling Catheter # Voids 1 1 ABP, PAP, CO, CI - Last Documented Arterial Blood Pressure 96/48 - Exam GENERAL EXAM: Revealed 78-year-old white male lethargic, on BiPAP, opens eyes, does not follow instructions hence patient was intubated as soon as I evaluated the patient and after discussing his condition with family at bedside HEAD: Normocephalic. EYES: Normal reaction of pupils, equal size. NOSE: Clear with pink turbinates. THROAT: No erythema or exudates. NECK: No masses, no JVD. CHEST: No chest wall deformity. LUNGS: Diminished breath sounds at the left base no rhonchi no wheezes CVS: S1 and S2 normal with no audible murmur, regular rhythm. ABDOMEN: No hepatosplenomegaly, normal bowel sounds, no guarding or rigidity. SPINE: No scoliosis or deformity SKIN: No rashes CENTRAL NERVOUS SYSTEM: Lethargic, weak, arousable, does not follow instructions EXTREMITIES: No clubbing edema or cyanosis - Labs CBC & Chem 7: 02/25/24 06:32 02/25/24 06:32 Labs: Abnormal Lab Results - Last 24 Hours (Table) 02/25/24 02/25/24 02/25/24 Range/Units 03:48 04:15 06:32 RBC 3.23 L (4.30-5.90) m/uL Hgb 10.2 L (13.0-17.5) gm/dL Hct 32.6 L (39.0-53.0) % MCV 101.2 H (80.0-100.0) fL Lymphocytes # 0.9 L (1.0-4.8) k/uL ABG pH (7.35-7.45) ABG pCO2 (35-45) mmHg ABG pO2 (83-108) mmHg ABG HCO3 (21-25) mmol/L ABG Total CO2 (19-24) mmol/L ABG O2 Saturation (94-97) % Hemoglobin (13.0-17.5) gm/dL Carbon Dioxide (22-30) mmol/L Glucose (74-99) mg/dL POC Glucose (mg/dL) 158 H 152 H (70-110) mg/dL 02/25/24 02/25/24 Range/Units 06:32 11:18 RBC (4.30-5.90) m/uL Hgb (13.0-17.5) gm/dL Hct (39.0-53.0) % MCV (80.0-100.0) fL Lymphocytes # (1.0-4.8) k/uL ABG pH 7.23 L (7.35-7.45) ABG pCO2 78 H* (35-45) mmHg ABG pO2 229 H (83-108) mmHg ABG HCO3 33 H (21-25) mmol/L ABG Total CO2 35 H (19-24) mmol/L ABG O2 Saturation >100.0 H (94-97) % Hemoglobin 9.4 L (13.0-17.5) gm/dL Carbon Dioxide 36 H (22-30) mmol/L Glucose 133 H (74-99) mg/dL POC Glucose (mg/dL) (70-110) mg/dL Microbiology - Last 24 Hours (Table) 02/22/24 23:05 Blood Culture - Preliminary Blood 02/24/24 13:00 Gram Stain - Preliminary Bronchoalviolar Lavage - Left Bronchial Washings Culture - Preliminary Assessment and Plan Assessment: Impression: Acute hypoxemic respiratory failure secondary to near complete opacification of the left lung, resolved on its own nonetheless patient underwent bronchoscopy and there was evidence of endobronchial tumor in the posterior segment of the left lower lobe, biopsies were taken.\ Current collapse and opacification of left lung secondary to mucous plugging status post repeat bronchoscopy again on 02/25/2024 and mucous plugs were suctioned again from the left lung. Altered mental status secondary to above CT scan of the brain revealed no acute intracranial process Urine drug screen positive for marijuana stage IV non-small cell lung cancer with liver and bone metastases previously on Tafinlar. Status post chemotherapy and radiation Recent admission and discharged February 15, 2024 for hypotension, hallucinati ons Rheumatoid arthritis Obstructive sleep apnea Hypertension Hyperlipidemia Chronic obstructive pulmonary disease Former smoker Recommendation: Discussed patient's condition with family at bedside Family agreed to proceed with intubation bronchoscopy and BAL and this was done Patient will be kept on mechanical ventilation for the next 24 hours and will address possible weaning and extubation in the next 24 hours depending on his overall condition and chest x-ray findings continue antibiotics, adjust based on final cultures from BAL of the left lower lobe Continue bronchodilators, continue steroids GI and DVT prophylaxis Awaiting biopsy report from biopsy of endobronchial tumor left lower lobe Cultures from BAL Patient is critically ill. Overall condition and status discussed with family Critical care time is over 30 minutes not including the time spent on procedures Time with Patient: Greater than 30
[2024-02-25] MEDS ORDERED: DEXTROSE 50% SYRINGE 50 ML IVP PRN ×2 (14:51)
[2024-02-25] MEDS: methylPREDNISolone SOD SUCCI 40 MG/ML 1 ML VIAL IV SCH (15:21)
[2024-02-25] MEDS: PANTOPRAZOLE 40 MG/10 ML VIAL IVP SCH (15:21)
--- NOTE | 2024-02-25 15:37 | P.PN ---
Subjective Progress Note Date: 02/25/24 Principal diagnosis: Metastatic non-small cell lung cancer -Underwent bronchoscopy on 02/24/2024 with noted finding of endobronchial tumor in the posterior left lower lobe with biopsies taken -Had progressive hypoxia following procedure and developed hypercapnic respira tory failure per ABG obtained this morning -Underwent mechanical intubation along with addition of Levophed Objective - Vital Signs Vital signs: Vital Signs Temp 99.0 F 02/25/24 12:00 Pulse 81 02/25/24 15:00 Resp 24 02/25/24 15:00 BP 91/55 02/25/24 15:00 Pulse Ox 99 02/25/24 15:00 FiO2 50 02/25/24 14:00 Intake & Output 02/24/24 02/25/24 02/25/24 18:59 06:59 18:59 Intake Total 50 100 851.814 Output Total 600 0 380 Balance -550 100 471.814 Weight 74.7 kg 74.7 kg Intake: IV 50 100 565 0.9 100 Dextrose 5%-0.45% NaCl 1, 100 450 000 ml @ 50 mls/hr IV . Q20H [facility] Rx#:[id number] Pressure bag 15 Intake, IV Titration 196.814 Amount Norepinephrine 4 mg In 39.892 Sodium Chloride 0.9% 250 ml @ 0.03 MCG/KG/MIN 8. 538 mls/hr IV .Q24H [facility] Rx#:[id number] cefTRIAXone 2 gm In 100 Sodium Chloride 0.9% 50 ml @ 100 mls/hr IVPB Q24HR [facility] Rx#:[id number] propofoL 1,000 mg In 56.922 Empty Bag 1 bag @ 15 MCG/ KG/MIN 6.723 mls/hr IV . [id number] [facility] Rx#:[id number] Tube Feeding 30 Other 60 Output: Urine 600 0 380 Other: Voiding Method Toilet Toilet Indwelling Catheter # Voids 1 1 ABP, PAP, CO, CI - Last Documented Arterial Blood Pressure 134/55 - Constitutional Constitutional Comment(s): Intubated and sedated - EENT EENT Comment(s): Endotracheal and oropharyngeal tube midline - Respiratory Details: Mechanical breath sounds - Cardiovascular Details: Warm and well-perfused - Gastrointestinal General gastrointestinal: Present: soft. Absent: distended - Integumentary Integumentary: Present: pale - Neurologic Neurologic Comment(s): Sedated - Labs CBC & Chem 7: 02/25/24 06:32 02/25/24 06:32 Labs: Abnormal Lab Results - Last 24 Hours (Table) 02/25/24 02/25/24 02/25/24 Range/Units 03:48 04:15 06:32 RBC 3.23 L (4.30-5.90) m/uL Hgb 10.2 L (13.0-17.5) gm/dL Hct 32.6 L (39.0-53.0) % MCV 101.2 H (80.0-100.0) fL Lymphocytes # 0.9 L (1.0-4.8) k/uL ABG pH (7.35-7.45) ABG pCO2 (35-45) mmHg ABG pO2 (83-108) mmHg ABG HCO3 (21-25) mmol/L ABG Total CO2 (19-24) mmol/L ABG O2 Saturation (94-97) % Hemoglobin (13.0-17.5) gm/dL Carbon Dioxide (22-30) mmol/L Glucose (74-99) mg/dL POC Glucose (mg/dL) 158 H 152 H (70-110) mg/dL 02/25/24 02/25/24 Range/Units 06:32 11:18 RBC (4.30-5.90) m/uL Hgb (13.0-17.5) gm/dL Hct (39.0-53.0) % MCV (80.0-100.0) fL Lymphocytes # (1.0-4.8) k/uL ABG pH 7.23 L (7.35-7.45) ABG pCO2 78 H* (35-45) mmHg ABG pO2 229 H (83-108) mmHg ABG HCO3 33 H (21-25) mmol/L ABG Total CO2 35 H (19-24) mmol/L ABG O2 Saturation >100.0 H (94-97) % Hemoglobin 9.4 L (13.0-17.5) gm/dL Carbon Dioxide 36 H (22-30) mmol/L Glucose 133 H (74-99) mg/dL POC Glucose (mg/dL) (70-110) mg/dL Microbiology - Last 24 Hours (Table) 02/22/24 23:05 Blood Culture - Preliminary Blood 02/24/24 13:00 Gram Stain - Preliminary Bronchoalviolar Lavage - Left Bronchial Washings Culture - Preliminary Assessment and Plan (1) Acute metabolic encephalopathy Current Visit: Yes Status: Acute Code(s): G93.41 - METABOLIC ENCEPHALOPATHY SNOMED Code(s): 58537193 (2) NSCLC metastatic to bone Current Visit: Yes Status: Acute Code(s): C34.90 - MALIGNANT NEOPLASM OF UNSP PART OF UNSP BRONCHUS OR LUNG; C79.51 - SECONDARY MALIGNANT NEOPLASM OF BONE SNOMED Code(s): 935537645 (3) Acute respiratory failure with hypercapnia Current Visit: Yes Status: Acute Code(s): J96.02 - ACUTE RESPIRATORY FAILURE WITH HYPERCAPNIA SNOMED Code(s): 393838717 Plan: Acute hypercapnic respiratory failure -Initially presented with hypoxia secondary to mucous plugging causing opacification on CTA with no evidence of pulmonary embolism -Was noted to have improved aeration on bronchoscopy on 02/24/2024 with findings of endobronchial tumor in the posterior left lower lobe -He remained hypoxic postprocedure with hypercapnia noted on ABG requiring mechanical intubation -He remains on ceftriaxone with BAL pending -It is unclear what the etiology is at this time, whether this is infectious, related to medications received for sedation for bronchoscopy, or due to malignancy -Continue antibiotics as above along with management per ICU, appreciate their assistance -Discussed with at bedside today. She notes Jett would not want prolonged course of intubation, which given my multiple interactions with Jett, I would agree with -We will assess his respiratory status over the next few days Acute metabolic encephalopathy -CT of the head without contrast, no evidence of midline shift, mass effect or intracranial bleed -Secondary to hypoxia from mucous plugging that was noted to have resolved on bronchoscopy on 02/24/2024 BRAF positive non-small cell lung cancer, metastatic disease -Patient unfortunately has been trialed on 2 BRAF inhibitors. Most recent treatment was with dabrafenib/tramentinib November to December but, unfortunately patient has not been able to tolerate treatment -Plans were to resume March 05 with a reduced dose and follow-up with Dr. Leigh 03/12 to see if tolerating -He developed endobronchial lesion in the left lower lobe that was not previously visualized on imaging, likely due to being off of treatment frequently with hospitalizations as opposed to this representing a failure of treatment Monica Leigh MD
[2024-02-25 17:43] LABS: Glucose,Whole Blood 128 mg/dL (70-110)
[2024-02-25] MEDS: INSULIN ASPART (NovoLOG) 100 UNIT/ML VIAL SQ SCH (17:44)
--- NOTE | 2024-02-25 18:27 | P.PN ---
Subjective Progress Note Date: 02/25/24 Interval History: This is a pleasant 78 years old male with past medical history of left lung cancer and he follow-up with Dr. Rivero and chronic hypoxic respiratory failure on 3 L oxygen via nasal cannula and other medical problems as below Presents because of confusion, patient was hard to wake up yesterday by his and he was unresponsive for some time. At baseline he is awake alert oriented in time 1-2. He has possible also metastatic disease and last treatment he received for his cancer disease was last August However patient does not complain from shortness of breath although he is using the mask and his oxygen requirement went up to 15 L/min. No coughing. No left- sided chest pain He has central chest pain in the lower chest which is coincides with sternal lesion seen on CAT scan below. No specific GI/ symptom, complains from dizziness and decreased appetite but no headache weakness or numbness At baseline he uses a walker Currently he is not a smoker, not drink alcohol. Patient is afebrile but blood pressure is borderline 101/63. He has unremarkable CBC, BMP, LFT, INR, troponin and urine analysis. D-dimer was elevated 2.17, proBNP was elevated to 3610. Urine drug screen is positive for marijuana EKG showing sinus tachycardia with no ST-T changes Chest x-ray showing opacified left lung may be large pleural effusion versus large atelectasis CTA of the chest showing no PE but there is airspace consolidative and through entire left lung with diffuse left lower lobe opacification Patient started on ceftriaxone and Zithromax 02/24/24 Patient sitting at the bed age, complaining from mild dyspnea, currently he is saturating high 90s on 6 L oxygen compared to 3 L at home. His central chest pain from his sternal lesion suspicious to be metastasis is improved, currently no chest pain However he complains from right knee pain, there is no significant swelling however there is warmth. Therefore we will check x-ray of the right knee. Also may benefit from ultrasound evaluation. His pro- Calcitonin is elevated 32.7 Repeat chest x-ray showing his left near complete opacification of the left lung is significantly improved and his left leg is opened but there is evidence of left pleural effusion. Hemodynamically stable. WBC dropped from 10 down to 4.9 and hemoglobin 12 to down to 9.8 which is his baseline most likely under the effect of hemodilution. BMP is unremarkable He remains on ceftriaxone and Zithromax and D5 half-normal saline at 50 mL/h 02/24patient was seen and examined today. Patient was transferred to ICU overnight due to developing more lethargy, worsening chest x-ray showing another episode of complete opacification of left lung, patient underwent intubation with bronchoscopy and suctioning of mucous plugs from his left lung, cleared all the mucous plugs from the airways. Family at bedside. Patient is currently on FiO2 50%. Remains empirically on antibiotics and on bronchodilators, ICU following. WBC 7.6, hemoglobin 12.2. BMP unremarkable. BAL culture pending. On Rocephin. Assessment and plan: Acute hypoxic respiratory failure secondary to complete opacification of left lung, required intubation and mechanical ventilation. 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 DVT prophylaxis: Subcutaneous heparin Monitor vital signs and labs Labs and medication were reviewed. Continue same treatment. Further recommendations as per clinical course of the patient PHYSICAL EXAMINATION: GENERAL: intubated on mechanical ventilation. HEENT: EOMI, Sclerae anicteric, Moist Mucous membranes Neck: Supple, Non tender, No JVD PULMONARY: Equal breath souds B/L, No wheezing, bilateral crackles. CARDIOVASCULAR: S1, S2 present. No murmurs, rubs, or gallops. ABDOMEN: Soft, nontender, nondistended, normoactive bowel sounds. No guarding or rebound tenderness. MUSCULOSKELETAL: No edema, No cyanosis. No clubbing. Normal ROM. Intact peripheral pulses. NEUROLOGICAL: Intubated and sedated. Skin: No Rash REVIEW OF SYSTEMS: Review of system. Dictation was produced using [employer] software. please excuse any grammatical, word or spelling errors. Objective - Vital Signs Vital signs: Vital Signs Temp 99.1 F 02/25/24 16:00 Pulse 75 02/25/24 18:00 Resp 24 02/25/24 18:00 BP 102/55 02/25/24 17:45 Pulse Ox 98 02/25/24 18:00 FiO2 50 02/25/24 16:00 Intake & Output 02/24/24 02/25/24 02/25/24 18:59 06:59 18:59 Intake Total 50 100 1289.716 Output Total 600 0 495 Balance -550 100 794.716 Weight 74.7 kg 74.7 kg Intake: IV 50 100 754 0.9 130 Dextrose 5%-0.45% NaCl 1, 100 600 000 ml @ 50 mls/hr IV . Q20H [facility] Rx#:[id number] Pressure bag 24 Intake, IV Titration 295.716 Amount Norepinephrine 4 mg In 138.794 Sodium Chloride 0.9% 250 ml @ 0.03 MCG/KG/MIN 8. 538 mls/hr IV .Q24H [facility] Rx#:[id number] cefTRIAXone 2 gm In 100 Sodium Chloride 0.9% 50 ml @ 100 mls/hr IVPB Q24HR [facility] Rx#:[id number] propofoL 1,000 mg In 56.922 Empty Bag 1 bag @ 15 MCG/ KG/MIN 6.723 mls/hr IV . [id number] [facility] Rx#:[id number] Tube Feeding 60 Other 180 Output: Urine 600 0 495 Other: Voiding Method Toilet Toilet Indwelling Catheter # Voids 1 1 ABP, PAP, CO, CI - Last Documented Arterial Blood Pressure 128/50 - Labs CBC & Chem 7: 02/25/24 06:32 02/25/24 06:32 Labs: Abnormal Lab Results - Last 24 Hours (Table) 02/25/24 02/25/24 02/25/24 Range/Units 03:48 04:15 06:32 RBC 3.23 L (4.30-5.90) m/uL Hgb 10.2 L (13.0-17.5) gm/dL Hct 32.6 L (39.0-53.0) % MCV 101.2 H (80.0-100.0) fL Lymphocytes # 0.9 L (1.0-4.8) k/uL ABG pH (7.35-7.45) ABG pCO2 (35-45) mmHg ABG pO2 (83-108) mmHg ABG HCO3 (21-25) mmol/L ABG Total CO2 (19-24) mmol/L ABG O2 Saturation (94-97) % Hemoglobin (13.0-17.5) gm/dL Carbon Dioxide (22-30) mmol/L Glucose (74-99) mg/dL POC Glucose (mg/dL) 158 H 152 H (70-110) mg/dL 02/25/24 02/25/24 02/25/24 Range/Units 06:32 11:18 17:42 RBC (4.30-5.90) m/uL Hgb (13.0-17.5) gm/dL Hct (39.0-53.0) % MCV (80.0-100.0) fL Lymphocytes # (1.0-4.8) k/uL ABG pH 7.23 L (7.35-7.45) ABG pCO2 78 H* (35-45) mmHg ABG pO2 229 H (83-108) mmHg ABG HCO3 33 H (21-25) mmol/L ABG Total CO2 35 H (19-24) mmol/L ABG O2 Saturation >100.0 H (94-97) % Hemoglobin 9.4 L (13.0-17.5) gm/dL Carbon Dioxide 36 H (22-30) mmol/L Glucose 133 H (74-99) mg/dL POC Glucose (mg/dL) 128 H (70-110) mg/dL Microbiology - Last 24 Hours (Table) 02/22/24 23:05 Blood Culture - Preliminary Blood 02/24/24 13:00 Gram Stain - Preliminary Bronchoalviolar Lavage - Left Bronchial Washings Culture - Preliminary
--- NOTE | 2024-02-25 19:59 | PCN ---
PROCEDURE NOTE PROCEDURE: Intubation. ANESTHESIA USED: 50 mg of propofol, 4 mg of morphine, and 75 mg of succinylcholine. PREOPERATIVE DIAGNOSIS: Acute hypoxic and hypercapnic respiratory failure with complete opacification of the left lung secondary to mucus plugging. POSTOPERATIVE DIAGNOSIS: Acute hypoxic and hypercapnic respiratory failure with complete opacification of the left lung secondary to mucus plugging. PROCEDURE IN DETAIL: The patient was placed in the supine position. A bronchoscope was used. This is a disposable bronchoscope, and after adequate sedation, the bronchoscope was advanced down through the mouth to the area of the vocal cords. As the vocal cords were visualized, the endotracheal tube was advanced through the vocal cords over the bronchoscope, and was visually localized about 4 cm above the júnior. The cuff was inflated, procedure was well tolerated, and no complications. Chest x-ray showed adequate placement of the endotracheal tube. MMODL / IJN: [id number] /
--- NOTE | 2024-02-25 20:05 | OP ---
OPERATIVE REPORT DATE OF SERVICE : PROCEDURE PERFORMED: Placement of a left radial arterial line. PREOPERATIVE DIAGNOSIS: Acute hypoxic respiratory failure secondary to complete opacification of the left lung, requiring bronchoscopy and bronchoalveolar lavage and suctioning of mucus plugs. POSTOPERATIVE DIAGNOSIS: Acute hypoxic respiratory failure secondary to complete opacification of the left lung, requiring bronchoscopy and bronchoalveolar lavage and suctioning of mucus plugs. ANESTHESIA USED: None deployed. PROCEDURE IN DETAIL: The left wrist was prepared in a sterile fashion. Drapes were applied. The left radial artery was palpated, cannulated easily. A guidewire was placed, Cook's catheter inserted over the guidewire, guidewire was removed, a good blood flow, good waveform. No complications. Line was secured using 3.0 silk sutures. MMODL / IJN: [id number] /
[2024-02-25] MEDS: CHLORHEXIDINE GLUCONATE 15 ML CUP MUCOUS MEM SCH (20:22)
[2024-02-25] MEDS: ACETAMINOPHEN TAB 325 MG TAB PO PRN (20:24)
[2024-02-25] MEDS: DEXTROSE 5%-0.45% NACL 1,000 ML IV SCH (21:42)
[2024-02-25 23:33] LABS: Glucose,Whole Blood 233 mg/dL (70-110)
[2024-02-26 04:10] LABS: ABG Base Excess 1.1 mmol/L; ABG HCO3 27 mmol/L (21-25); ABG Oxygen Saturation 98.4 % (94-97); ABG PCO2 50 mmHg (35-45); ABG PH 7.34 (7.35-7.45); ABG PO2 98 mmHg (83-108); ABG TCO2 29 mmol/L (19-24)
[2024-02-26 04:14] LABS: Allen Test Performed? no
[2024-02-26 04:21] LABS: Basophils % (A) 0 %; Eosinophils % (A) 0 %; HCT 27.6 % (39.0-53.0); Hypochromasia Moderate; Lymphocytes # (A) 0.2 k/uL (1.0-4.8); Lymphocytes % (A) 3 %; MCH 30.7 pg (25.0-35.0); MCHC 31.3 g/dL (31.0-37.0); MCV 98.1 fL (80.0-100.0); Mean Platelet Volume 9.4; Monocytes # (A) 0.1 k/uL (0-1.0); Monocytes % (A) 2 %; Neutrophils % (A) 95 %; Platelet Count 190 k/uL (150-450); RBC 2.81 m/uL (4.30-5.90); RDW 15.1 % (11.5-15.5); WBC 6.4 k/uL (3.8-10.6)
[2024-02-26 04:33] LABS: ALT 12 U/L (4-49); AST 18 U/L (17-59); African American GFR (CKD) 69 (>60 ml/min/1.73 sqM); Albumin 2.9 g/dL (3.5-5.0); Alkaline Phosphatase 96 U/L (38-126); Anion Gap 10 mmol/L; Blood Urea Nitrogen 12 mg/dL (9-20); Calcium 8.1 mg/dL (8.4-10.2); Carbon Dioxide 26 mmol/L (22-30); Chloride 101 mmol/L (98-107); Glucose 178 mg/dL (74-99); Magnesium 1.5 mg/dL (1.6-2.3); Non-African American GFR(CKD) 60 (>60 ml/min/1.73 sqM); Potassium 3.1 mmol/L (3.5-5.1); Sodium 137 mmol/L (137-145); Total Bilirubin 0.2 mg/dL (0.2-1.3); Total Protein 6.1 g/dL (6.3-8.2)
[2024-02-26] MEDS ORDERED: Potassium Replacement Protocol 1 EACH MISC MISCELLANE PRN (04:34)
[2024-02-26] MEDS ORDERED: Magnesium Replacement Protocol 1 EACH MISC MISCELLANE PRN (04:35)
[2024-02-26] MEDS: MAGNESIUM SULFATE-D5W PMX 1 GM in DEXTROSE/WATER 1 100ML.BAG IVPB SCH (04:42)
[2024-02-26] MEDS: POTASSIUM BICARBONATE/CIT AC 20 MEQ TABLET.EFF NG-TUBE SCH ×2 (04:42→09:37)
[2024-02-26 04:51] LABS: HGB 8.7 gm/dL (13.0-17.5)
[2024-02-26 05:44] LABS: Glucose,Whole Blood 199 mg/dL (70-110)
--- NOTE | 2024-02-26 07:23 | XR ---
EXAMINATION TYPE: XR chest 1V portable DATE OF EXAM: 02/26/2024 5:28 AM COMPARISON: Chest radiograph from one day prior. CLINICAL INDICATION: Male, 78 years old with history of Tube placement; [facility] TECHNIQUE: XR chest 1V portable Frontal view of the chest. FINDINGS: Lungs/Pleura: Improved aeration of the left lung. There is no evidence of pleural effusion, focal con solidation, or pneumothorax. Pulmonary vascularity: Unremarkable. Heart/mediastinum: Cardiomediastinal silhouette is unremarkable. Musculoskeletal: No acute osseous pathology. Other findings: None Lines/Tubes: Endotracheal tube with distal tip 5.8 cm above the júnior. Nasogastric tube with its distal tip and side-port projecting under the diaphragm. IMPRESSION: Endotracheal tube with distal tip 5.8 cm above the júnior consider advancement of [address] acement. Improved aeration of the left lung. [facility], , 02/26/2024 7:21 AM
[2024-02-26] MEDS: HYDROcodone/APAP 10-325MG 1 EACH TAB PO PRN (11:44)
[2024-02-26 11:54] LABS: Glucose,Whole Blood 143 mg/dL (70-110)
[2024-02-26 12:08] LABS: Glucose,Whole Blood 147 mg/dL (70-110)
--- NOTE | 2024-02-26 12:41 | P.PN ---
Subjective Progress Note Date: 02/26/24 Principal diagnosis: Acute hypoxic respiratory failure with near complete opacification of left lung most likely secondary to mucous plugging and underlying non-small cell lung can cer involving left lower lobe This is a 78-year-old male patient with a history of hypertension, h yperlipidemia, mild intermittent bronchial asthma, former smoker on home oxygen at 3 L. 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 He had undergone chemotherapy and radiation through July 2023. He is most recently on dabrafenib Tafinlar. He was just discharged from here February 15, 2024 for hypoxic respiratory failure, hypotension and hallucinations. He had been at home recovering with his when she found him to be minimally responsive and severe weakness unable to get him out of bed. CT scan of the brain revealed no acute intracranial hemorrhage, midline shift or mass effect. X-ray reveals opacified left hemithorax with possible left pleural effusion or atelectatic changes. CT scan of the chest revealed airspace consolidation throughout the entire left lung, consistent with diffuse lobar pneumonia. Debris occluding left lower lobe bronchi. Moderate left pleural effusion. Expansive lesion in the sternum measuring 6.8 x 2.0 cm suspect metastatic disease. No pulmonary embolism. White count 10.3. Hemoglobin 12.2. Platelets 239. INR 1.0. D- dimer 2.17. Sodium 140. Potassium 5.4. Bicarb 27. BUN 20. Creatinine 1.04. Glucose 111. Urinalysis clean. Urine drug screen positive for marijuana. He is seen today in consultation in the emergency department. He remains altered. Poor historian. He is currently maintaining O2 saturations up to 100% on a Ventimask. Afebrile. Hemodynamically stable. Seen today on 02/24/2024, patient is doing well, his chest x-ray showed signific ant improvement most likely the patient had mucous plugging involving the left mainstem bronchus which apparently resolved on its own and now there is complete reinflation of the left lung, and continues to have some left lower lobe atelectasis. Previous CT of the chest showed soft tissue mass in the left infrahilar area and this was endobronchially visualized today, please refer to the bronchoscopy report. Biopsies were taken from that endobronchial lesion in the left lower lobe, and on bronchoscopy there was no evidence of mucous plugging which has apparently resolved. Patient was seen today 02/25/2024, early this morning the patient was transferred to ICU mostly because he was developing more lethargy, and worsening chest x-ray showing another episode of complete opacification of the left lung. I saw the patient in the ICU, discussed his condition with family at bedside, and recommended intubation, also recommended bronchoscopy and suctioning of mucous plugs from his left lung. Family agreed to the procedure, hence I went ahead and performed intubation, bronchoscopy and BAL of the left lung. Until I cleared all the mucous plugs from the airways. Please refer to the operative report. Patient is now on assist-control rate of 18 tidal volume 450 FiO2 of 100% and PEEP of 5ABG showed a pO2 of 229 pCO2 78 pH of 7.23 hence increased his respiratory rate to 24 and I cut down on the FiO2 down to 50%. Cultures are pending, patient remains empirically on antibiotics, and he is also on bronchodilators for his COPD. WBC count 7.6 hemoglobin 10.2, Basic metabolic profile/electrolytes were noted to be normal. Cultures from BAL are pending. Empirically patient is on ceftriaxone, however will change antibiotics based on the next BAL culture Patient was seen today on 02/26/2024, remains in the ICU, intubated and mechanically ventilated patient is on assist-control rate of 24, tidal volume 450 FiO2 50% PEEP was 5 and I increased it up to 8, at the same time I decrease his FiO2 down to 45%. ABG showed a pO2 of 98 pCO2 50 pH of 7.34. Patient is requiring small dose of norepinephrine at 0.06 mg/kg/min his IV fluid was increased to 100 cc/h he was on 50 cc/h, urine output is adequate and improving with fluid boluses. Patient is on propofol at 40 mcg/kg/min, he is also receiving vital HP 40/70, not yet up to goal. Antibiotics cruz patient is on Rocephin cultures from the BAL are pending. Chest x-ray showed improvement in his left lung opacification, he expanded his lung quite well, however continues to have left lower lobe atelectasis which may not improve because of his endobronchial tumor that was noted during bronchoscopy. Pathology report from the endobronchial tumor biopsies are pending.WBC count is 6.4 hemoglobin 8.7Basic metabolic profile is normal potassium is a bit low being addressed and his BUN is 12 creatinine 1.16 Objective - Vital Signs Vital signs: Vital Signs Temp 99.1 F 02/26/24 08:00 Pulse 104 H 02/26/24 11:47 Resp 24 02/26/24 11:30 BP 118/55 02/26/24 11:15 Pulse Ox 98 02/26/24 11:30 FiO2 45 02/26/24 11:35 Intake & Output 02/25/24 02/26/24 02/26/24 18:59 06:59 18:59 Intake Total 7658.669 6538.203 1301.375 Output Total 495 700 365 Balance 085.554 6285.203 936.375 Weight 74.7 kg 79.8 kg Intake: IV 754 756 515 0.9 130 120 100 Dextrose 5%-0.45% NaCl 1, 600 600 400 000 ml @ 100 mls/hr IV . Q10H [facility] Rx#:[id number] Pressure bag 24 36 15 Intake, IV Titration 542.960 4210.203 446.375 Amount Dextrose 5%-0.45% NaCl 1, 1000 000 ml @ 999 mls/hr IV . Q1H1M [facility] Rx#:[id number] Magnesium Sulfate-D5w Pmx 200 1 gm In Dextrose/Water 1 100ml.bag @ 100 mls/hr IVPB Q1H [facility] Rx#: [id number] Norepinephrine 4 mg In 138.794 124.940 52.178 Sodium Chloride 0.9% 250 ml @ 0.03 MCG/KG/MIN 8. 538 mls/hr IV .Q24H [facility] Rx#:[id number] cefTRIAXone 2 gm In 100 100 Sodium Chloride 0.9% 50 ml @ 100 mls/hr IVPB Q24HR [facility] Rx#:[id number] propofoL 1,000 mg In 56.922 255.263 94.197 Empty Bag 1 bag @ 15 MCG/ KG/MIN 6.723 mls/hr IV . [id number] [facility] Rx#:[id number] Oral 0 Tube Feeding 60 270 200 Other 180 240 140 Output: Urine 495 700 365 Other: Voiding Method Indwelling Catheter Indwelling Catheter Indwelling Catheter ABP, PAP, CO, CI - Last Documented Arterial Blood Pressure 101/57 - Exam GENERAL EXAM: Revealed 78-year-old white male intubated, mechanically ventilated, sedated, on propofol HEAD: Normocephalic. EYES: Normal reaction of pupils, equal size. NOSE: Clear with pink turbinates. THROAT: No erythema or exudates. NECK: No masses, no JVD. CHEST: No chest wall deformity. LUNGS: Diminished breath sounds at the left base no rhonchi no wheezes CVS: S1 and S2 normal with no audible murmur, regular rhythm. ABDOMEN: No hepatosplenomegaly, normal bowel sounds, no guarding or rigidity. SPINE: No scoliosis or deformity SKIN: No rashes CENTRAL NERVOUS SYSTEM: Could not assess, patient is on propofol EXTREMITIES: No clubbing edema or cyanosis - Labs CBC & Chem 7: 02/26/24 04:08 02/26/24 08:26 Labs: Abnormal Lab Results - Last 24 Hours (Table) 02/25/24 02/25/24 02/26/24 Range/Units 17:42 23:32 04:08 RBC 2.81 L (4.30-5.90) m/uL Hgb 8.7 L D (13.0-17.5) gm/dL Hct 27.6 L (39.0-53.0) % Lymphocytes # 0.2 L (1.0-4.8) k/uL ABG pH (7.35-7.45) ABG pCO2 (35-45) mmHg ABG HCO3 (21-25) mmol/L ABG Total CO2 (19-24) mmol/L ABG O2 Saturation (94-97) % Hemoglobin (13.0-17.5) gm/dL Potassium (3.5-5.1) mmol/L Glucose (74-99) mg/dL POC Glucose (mg/dL) 128 H 233 H (70-110) mg/dL Calcium (8.4-10.2) mg/dL Magnesium (1.6-2.3) mg/dL Total Protein (6.3-8.2) g/dL Albumin (3.5-5.0) g/dL 02/26/24 02/26/24 02/26/24 Range/Units 04:08 04:08 05:42 RBC (4.30-5.90) m/uL Hgb (13.0-17.5) gm/dL Hct (39.0-53.0) % Lymphocytes # (1.0-4.8) k/uL ABG pH 7.34 L (7.35-7.45) ABG pCO2 50 H (35-45) mmHg ABG HCO3 27 H (21-25) mmol/L ABG Total CO2 29 H (19-24) mmol/L ABG O2 Saturation 98.4 H (94-97) % Hemoglobin 8.8 L (13.0-17.5) gm/dL Potassium 3.1 L (3.5-5.1) mmol/L Glucose 178 H (74-99) mg/dL POC Glucose (mg/dL) 199 H (70-110) mg/dL Calcium 8.1 L (8.4-10.2) mg/dL Magnesium 1.5 L (1.6-2.3) mg/dL Total Protein 6.1 L (6.3-8.2) g/dL Albumin 2.9 L (3.5-5.0) g/dL 02/26/24 02/26/24 Range/Units 11:52 12:05 RBC (4.30-5.90) m/uL Hgb (13.0-17.5) gm/dL Hct (39.0-53.0) % Lymphocytes # (1.0-4.8) k/uL ABG pH (7.35-7.45) ABG pCO2 (35-45) mmHg ABG HCO3 (21-25) mmol/L ABG Total CO2 (19-24) mmol/L ABG O2 Saturation (94-97) % Hemoglobin (13.0-17.5) gm/dL Potassium (3.5-5.1) mmol/L Glucose (74-99) mg/dL POC Glucose (mg/dL) 143 H 147 H (70-110) mg/dL Calcium (8.4-10.2) mg/dL Magnesium (1.6-2.3) mg/dL Total Protein (6.3-8.2) g/dL Albumin (3.5-5.0) g/dL Microbiology - Last 24 Hours (Table) 02/24/24 13:00 Gram Stain - Final Bronchoalviolar Lavage - Left Bronchial Washings Culture - Final 02/24/24 13:00 Acid Fast Bacilli Smear - Preliminary Bronchoalviolar Lavage - Left 02/22/24 23:05 Blood Culture - Preliminary Blood Assessment and Plan Assessment: Impression: Acute hypoxemic respiratory failure secondary to near complete opacification of the left lung, resolved on its own nonetheless patient underwent bronchoscopy and there was evidence of endobronchial tumor in the posterior segment of the left lower lobe, Wire to bronchoscopy so far, required mostly for recurrent mucous plugging involving the left lung, yesterday after his bronchoscopy I kept him on mechanical ventilation as I am afraid that he may develop collapse of the left lung again, awaiting further cultures from the BAL, patient is presently on antibiotics in the form of Rocephin. The initial culture from the first BAL is nondiagnostic, showed mostly normal respiratory johanne Recurrent t collapse and opacification of left lung secondary to mucous plugging status post repeat bronchoscopy again on 02/25/2024 and mucous plugs were suctioned again from the left lung. Altered mental status secondary to above CT scan of the brain revealed no acute intracranial process Urine drug screen positive for marijuana stage IV non-small cell lung cancer with liver and bone metastases previously on Tafinlar. Status post chemotherapy and radiation Recent admission and discharged February 15, 2024 for hypotension, hallucinations Rheumatoid arthritis Obstructive sleep apnea Hypertension Hyperlipidemia Chronic obstructive pulmonary disease Former smoker Recommendation: Continue to monitor in the ICU Continue ventilatory support for another day and consider extubation in the next 24 hours assuming the patient continues to have expanded left lung continue IV fluids, I believe the patient is hypovolemic and we can possibly discontinue norepinephrine I strongly doubt sepsis, renal functioning is impr oving with IV fluids Continue bronchodilators, continue steroids GI and DVT prophylaxis biopsy report from biopsy of endobronchial tumor left lower lobe is pending Cultures from BAL are nondiagnostic Remains critically ill was updated on his condition today Critical care time is over 30 minutes Time with Patient: Greater than 30
--- NOTE | 2024-02-26 15:19 | P.PN ---
Subjective Progress Note Date: 02/26/24 Interval History: This is a pleasant 78 years old male with past medical history of left lung cancer and he follow-up with Dr. Rivero and chronic hypoxic respiratory failure on 3 L oxygen via nasal cannula and other medical problems as below Presents because of confusion, patient was hard to wake up yesterday by his and he was unresponsive for some time. At baseline he is awake alert oriented in time 1-2. He has possible also metastatic disease and last treatment he received for his cancer disease was last August However patient does not complain from shortness of breath although he is using the mask and his oxygen requirement went up to 15 L/min. No coughing. No left- sided chest pain He has central chest pain in the lower chest which is coincides with sternal lesion seen on CAT scan below. No specific GI/ symptom, complains from dizziness and decreased appetite but no headache weakness or numbness At baseline he uses a walker Currently he is not a smoker, not drink alcohol. Patient is afebrile but blood pressure is borderline 101/63. He has unremarkable CBC, BMP, LFT, INR, troponin and urine analysis. D-dimer was elevated 2.17, proBNP was elevated to 3610. Urine drug screen is positive for marijuana EKG showing sinus tachycardia with no ST-T changes Chest x-ray showing opacified left lung may be large pleural effusion versus large atelectasis CTA of the chest showing no PE but there is airspace consolidative and through entire left lung with diffuse left lower lobe opacification Patient started on ceftriaxone and Zithromax 02/24/24 Patient sitting at the bed age, complaining from mild dyspnea, currently he is saturating high 90s on 6 L oxygen compared to 3 L at home. His central chest pain from his sternal lesion suspicious to be metastasis is improved, currently no chest pain However he complains from right knee pain, there is no significant swelling however there is warmth. Therefore we will check x-ray of the right knee. Also may benefit from ultrasound evaluation. His pro- Calcitonin is elevated 32.7 Repeat chest x-ray showing his left near complete opacification of the left lung is significantly improved and his left leg is opened but there is evidence of left pleural effusion. Hemodynamically stable. WBC dropped from 10 down to 4.9 and hemoglobin 12 to down to 9.8 which is his baseline most likely under the effect of hemodilution. BMP is unremarkable He remains on ceftriaxone and Zithromax and D5 half-normal saline at 50 mL/h 02/24patient was seen and examined today. Patient was transferred to ICU overnight due to developing more lethargy, worsening chest x-ray showing another episode of complete opacification of left lung, patient underwent intubation with bronchoscopy and suctioning of mucous plugs from his left lung, cleared all the mucous plugs from the airways. Family at bedside. Patient is currently on FiO2 50%. Remains empirically on antibiotics and on bronchodilators, ICU following. WBC 7.6, hemoglobin 12.2. BMP unremarkable. BAL culture pending. On Rocephin. 02/25--patient remains in the ICU, intubated and on mechanical ventilation, ICU following. Currently on Levophed small dose, on IV fluids. Urine output improving with fluid boluses. Currently on Rocephin, cultures from BAL pending. Chest x-ray today showed improvement in left lung opacifications. Endobronchial tumor biopsies pending. BMP unremarkable. WBC 6.4, hemoglobin 8.7, no sign or symptom of active bleed.. ABG showed pCO2 50, pH of 7.34, pO2 of 98. Assessment and plan: Acute hypoxic respiratory failure secondary to complete opacification of left lung, required intubation and mechanical ventilation. Status post bronchoscopy with evidence of endobronchial tumorbiopsies taken Acute metabolic encephalopathy: Urine drug screen positive for marijuana History of stage IV non-small cell lung cancer with liver and bone metastasis status post chemo and radiation Recent admission for hypertension, hallucinations Obstructive sleep apnea COPD Hypertension Hyperlipidemia Former smoker Rheumatoid arthritis Plan: Currently intubated on mechanical ventilation in the ICU, pulmonary following, on Levophed. Bronchoscopy showing endobronchial tumor in the posterior segment of left lower lobe, required intubation and mechanical ventilation Awaiting biopsy results, awaiting BAL cultures Empirically on Rocephin Oncology consulted Patient is critically ill, prognosis guarded. DVT prophylaxis: Subcutaneous heparin Monitor vital signs and labs Labs and medication were reviewed. Continue same treatment. Further recommendations as per clinical course of the patient PHYSICAL EXAMINATION: GENERAL: intubated on mechanical ventilation. HEENT: EOMI, Sclerae anicteric, Moist Mucous membranes Neck: Supple, Non tender, No JVD PULMONARY: Equal breath souds B/L, No wheezing, bilateral crackles. CARDIOVASCULAR: S1, S2 present. No murmurs, rubs, or gallops. ABDOMEN: Soft, nontender, nondistended, normoactive bowel sounds. No guarding or rebound tenderness. MUSCULOSKELETAL: No edema, No cyanosis. No clubbing. Normal ROM. Intact peripheral pulses. NEUROLOGICAL: Intubated and sedated. Skin: No Rash REVIEW OF SYSTEMS: Review of system. Dictation was produced using [employer] dictation software. please excuse any grammatical, word or spelling errors. Objective - Vital Signs Vital signs: Vital Signs Temp 99.7 F H 02/26/24 12:00 Pulse 104 H 02/26/24 14:00 Resp 25 H 02/26/24 14:00 BP 119/55 02/26/24 14:00 Pulse Ox 97 02/26/24 14:00 FiO2 45 02/26/24 11:35 Intake & Output 02/25/24 02/26/24 02/26/24 18:59 06:59 18:59 Intake Total 6129.747 1237.203 2029.762 Output Total 495 700 535 Balance 451.437 2794.203 1494.762 Weight 74.7 kg 79.8 kg Intake: IV 754 756 884 0.9 130 120 160 Dextrose 5%-0.45% NaCl 1, 600 600 700 000 ml @ 100 mls/hr IV . Q10H [facility] Rx#:[id number] Pressure bag 24 36 24 Intake, IV Titration 453.196 9909.203 505.762 Amount Dextrose 5%-0.45% NaCl 1, 1000 000 ml @ 999 mls/hr IV . Q1H1M [facility] Rx#:[id number] Magnesium Sulfate-D5w Pmx 200 1 gm In Dextrose/Water 1 100ml.bag @ 100 mls/hr IVPB Q1H [facility] Rx#: [id number] Norepinephrine 4 mg In 138.794 124.940 52.178 Sodium Chloride 0.9% 250 ml @ 0.03 MCG/KG/MIN 8. 538 mls/hr IV .Q24H [facility] Rx#:[id number] cefTRIAXone 2 gm In 100 100 Sodium Chloride 0.9% 50 ml @ 100 mls/hr IVPB Q24HR [facility] Rx#:[id number] propofoL 1,000 mg In 56.922 255.263 153.584 Empty Bag 1 bag @ 15 MCG/ KG/MIN 6.723 mls/hr IV . [id number] [facility] Rx#:[id number] Oral 0 Tube Feeding 60 270 320 Other 180 240 320 Output: Urine 495 700 535 Other: Voiding Method Indwelling Catheter Indwelling Catheter Indwelling Catheter ABP, PAP, CO, CI - Last Documented Arterial Blood Pressure 101/54 - Labs CBC & Chem 7: 02/26/24 04:08 02/26/24 08:26 Labs: Abnormal Lab Results - Last 24 Hours (Table) 02/25/24 02/25/24 02/26/24 Range/Units 17:42 23:32 04:08 RBC 2.81 L (4.30-5.90) m/uL Hgb 8.7 L D (13.0-17.5) gm/dL Hct 27.6 L (39.0-53.0) % Lymphocytes # 0.2 L (1.0-4.8) k/uL ABG pH (7.35-7.45) ABG pCO2 (35-45) mmHg ABG HCO3 (21-25) mmol/L ABG Total CO2 (19-24) mmol/L ABG O2 Saturation (94-97) % Hemoglobin (13.0-17.5) gm/dL Potassium (3.5-5.1) mmol/L Glucose (74-99) mg/dL POC Glucose (mg/dL) 128 H 233 H (70-110) mg/dL Calcium (8.4-10.2) mg/dL Magnesium (1.6-2.3) mg/dL Total Protein (6.3-8.2) g/dL Albumin (3.5-5.0) g/dL 02/26/24 02/26/24 02/26/24 Range/Units 04:08 04:08 05:42 RBC (4.30-5.90) m/uL Hgb (13.0-17.5) gm/dL Hct (39.0-53.0) % Lymphocytes # (1.0-4.8) k/uL ABG pH 7.34 L (7.35-7.45) ABG pCO2 50 H (35-45) mmHg ABG HCO3 27 H (21-25) mmol/L ABG Total CO2 29 H (19-24) mmol/L ABG O2 Saturation 98.4 H (94-97) % Hemoglobin 8.8 L (13.0-17.5) gm/dL Potassium 3.1 L (3.5-5.1) mmol/L Glucose 178 H (74-99) mg/dL POC Glucose (mg/dL) 199 H (70-110) mg/dL Calcium 8.1 L (8.4-10.2) mg/dL Magnesium 1.5 L (1.6-2.3) mg/dL Total Protein 6.1 L (6.3-8.2) g/dL Albumin 2.9 L (3.5-5.0) g/dL 02/26/24 02/26/24 Range/Units 11:52 12:05 RBC (4.30-5.90) m/uL Hgb (13.0-17.5) gm/dL Hct (39.0-53.0) % Lymphocytes # (1.0-4.8) k/uL ABG pH (7.35-7.45) ABG pCO2 (35-45) mmHg ABG HCO3 (21-25) mmol/L ABG Total CO2 (19-24) mmol/L ABG O2 Saturation (94-97) % Hemoglobin (13.0-17.5) gm/dL Potassium (3.5-5.1) mmol/L Glucose (74-99) mg/dL POC Glucose (mg/dL) 143 H 147 H (70-110) mg/dL Calcium (8.4-10.2) mg/dL Magnesium (1.6-2.3) mg/dL Total Protein (6.3-8.2) g/dL Albumin (3.5-5.0) g/dL Microbiology - Last 24 Hours (Table) 02/22/24 23:05 Blood Culture - Preliminary Blood 02/24/24 13:00 Gram Stain - Final Bronchoalviolar Lavage - Left Bronchial Washings Culture - Final 02/24/24 13:00 Acid Fast Bacilli Smear - Preliminary Bronchoalviolar Lavage - Left
[2024-02-26 17:52] LABS: Glucose,Whole Blood 148 mg/dL (70-110)
[2024-02-26 23:18] LABS: Glucose,Whole Blood 149 mg/dL (70-110)
[2024-02-27 04:37] LABS: ABG Base Excess 4.3 mmol/L; ABG HCO3 30 mmol/L (21-25); ABG Oxygen Saturation 99.8 % (94-97); ABG PCO2 52 mmHg (35-45); ABG PH 7.37 (7.35-7.45); ABG PO2 145 mmHg (83-108); ABG TCO2 32 mmol/L (19-24)
[2024-02-27 04:51] LABS: Allen Test Performed? no
[2024-02-27 05:20] LABS: Glucose,Whole Blood 150 mg/dL (70-110)
[2024-02-27 05:27] LABS: Basophils % (A) 0 %; Eosinophils % (A) 0 %; HGB 8.4 gm/dL (13.0-17.5); Hypochromasia Slight; Lymphocytes # (A) 0.3 k/uL (1.0-4.8); Lymphocytes % (A) 4 %; MCH 31.4 pg (25.0-35.0); MCHC 32.2 g/dL (31.0-37.0); MCV 97.5 fL (80.0-100.0); Monocytes # (A) 0.2 k/uL (0-1.0); Monocytes % (A) 3 %; Neutrophils # (A) 7.6 k/uL (1.3-7.7); Neutrophils % (A) 93 %; Platelet Count 165 k/uL (150-450); RBC 2.66 m/uL (4.30-5.90); RDW 15.5 % (11.5-15.5); WBC 8.2 k/uL (3.8-10.6)
[2024-02-27 05:50] LABS: Glucose,Whole Blood 126 mg/dL (70-110)
[2024-02-27 06:06] LABS: African American GFR (CKD) 88 (>60 ml/min/1.73 sqM); Anion Gap 5 mmol/L; Blood Urea Nitrogen 21 mg/dL (9-20); Calcium 8.2 mg/dL (8.4-10.2); Carbon Dioxide 29 mmol/L (22-30); Chloride 103 mmol/L (98-107); Glucose 146 mg/dL (74-99); Magnesium 2.1 mg/dL (1.6-2.3); Non-African American GFR(CKD) 76 (>60 ml/min/1.73 sqM); Potassium 4.3 mmol/L (3.5-5.1); Sodium 137 mmol/L (137-145)
--- NOTE | 2024-02-27 08:26 | XR ---
EXAMINATION TYPE: XR chest 1V portable DATE OF EXAM: 02/27/2024 5:39 AM COMPARISON: None. CLINICAL INDICATION: Male, 78 years old with history of Tube placement, difficulty breathing. Previou s abnormal. TECHNIQUE: XR chest 1V portable view(s) obtained. FINDINGS: The heart size is normal. The pulmonary vasculature is normal. Infiltrate is silhouetting the right hemidiaphragm. Mild left lower lobe and right is present. Small left pleural effusion is present. Endotracheal tube is 5.3 cm above the júnior. Suggest tube transverses the thorax. IMPRESSION: 1. Developing infiltrate at the right lung base. Correlate for atelectasis or pneumonia. 2. Stable left lower lobe infiltrate and/or pleural effusion [facility], , 02/27/2024 8:24 AM
--- NOTE | 2024-02-27 09:07 | PCN ---
PROCEDURE NOTE PROCEDURES: 1. Bronchoscopy. 2. Bronchoalveolar lavage of the left lung. 3. Suctioning of mucus plugs involving the left mainstem bronchus, left upper lobe bronchus, and left lower lobe bronchus. PREOPERATIVE DIAGNOSIS: Complete opacification of the left lung secondary to mucus plugging. POSTOPERATIVE DIAGNOSIS: Complete opacification of the left lung secondary to mucus plugging. ANESTHESIA USED: The patient received earlier just before the bronchoscopy, morphine sulfate, succinylcholine, and propofol for intubation. PROCEDURE IN DETAIL: The patient was placed in the supine position. The patient was being Ambu bagged during the procedure. The bronchoscope was advanced down through the endotracheal tube all the way down to the trachea. Thorough examination was done of the trachea, júnior, right upper lobe, right middle lobe, right lower lobe, no evidence of any significant abnormalities. However, as we entered the left mainstem bronchus, there were significant thick tenacious mucus plugs involving the whole left side. These were suctioned and lavaged until all clear. I was able to visualize again the endobronchial tumor with a blood clot on the surface of the tumor noted in the left lower lobe posterior segment. The area was cleaned up until all the mucus plugs were removed. Procedure was well tolerated, family updated on his condition after the procedure and also updated before the procedure. No complications from the procedure. MMODL / IJN: [id number] /
--- NOTE | 2024-02-27 11:31 | P.PN ---
Subjective Progress Note Date: 02/27/24 Principal diagnosis: Acute hypoxic respiratory failure with near complete opacification of left lung most likely secondary to mucous plugging and underlying non-small cell lung canc er involving left lower lobe This is a 78-year-old male patient with a history of hypertension, hyp erlipidemia, mild intermittent bronchial asthma, former smoker on home oxygen at 3 L. 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 He had undergone chemotherapy and radiation through July 2023. He is most recently on dabrafenib Tafinlar. He was just discharged from here February 15, 2024 for hypoxic respiratory fail ure, hypotension and hallucinations. He had been at home recovering with his when she found him to be minimally responsive and severe weakness unable to get him out of bed. CT scan of the brain revealed no acute intracranial hemorrhage, midline shift or mass effect. X-ray reveals opacified left hemithorax with possible left pleural effusion or atelectatic changes. CT scan of the chest revealed airspace consolidation throughout the entire left lung, consistent with diffuse lobar pneumonia. Debris occluding left lower lobe bronchi. Moderate left pleural effusion. Expansive lesion in the sternum measuring 6.8 x 2.0 cm suspect metastatic disease. No pulmonary embolism. White count 10.3. Hemoglobin 12.2. Platelets 239. INR 1.0. D-dimer 2.17. Sodium 140. Potassium 5.4. Bicarb 27. BUN 20. Creatinine 1.04. Glucose 111. Urinalysis clean. Urine drug screen positive for marijuana. He was seen 02/22 as a consult in the emergency department. He remains altered. Poor historian. He was maintaining O2 saturations up to 100% on a Ventimask. Afebrile. Hemodynamically stable. 02/27/2024 patient seen and examined at bedside. Patient still in the ICU. Patient still sedated, intubated, and mechanically ventilated. No acute events overnight. Mechanical ventilator still on assist-control with a rate of 24, tidal volume 450, PEEP of 8 with FiO2 45%. Patient still currently on [id number] 0.45% NS at 100cc/hour, propofol with a rate of 50 and on Levophed 0.03 mcg/kg/m in. Chest x-ray today shows developing into the base of the right lung base concerning for atelectasis or pneumonia with stable left lower lobe infiltrate and/or pleural effusion. ABG shows pH of 7.37, CO2 52, O2 145. Labs today show WBC 8.2, hemoglobin 8.4, hematocrit 26, sodium 137, potassium 4.3, bicarb 29, BUN 21, creatinine 0.95, glucose 146, calcium 8.2, magnesium 2.1. Urine output today at 2470 mL. Review of systems: Cannot be assessed Pertinent imaging and labs reviewed. Physical examination: Vital signs reviewed General: non toxic, no distress, currently sedated, intubated, and mechanically ventilated Derm: no unusual rashes/lesions, warm Head: atraumatic, normocephalic, symmetric Eyes: EOMI, anicteric sclera, pupils equal round reactive to light ENT: Nose and ears atraumatic Neck: No cervical lymphadenopathy, trachea midline, supple Mouth: no lip lesion, mucus membranes moist Cardiovascular: S1S2 reg, no murmur Lungs: Decreased breath sounds at the left lower lobe, no rhonchi, no rales, no accessory muscle use Abdominal: soft, nontender to palpation, no guarding Ext: no gross muscle atrophy, no contractures, positive dorsalis pedis pulse bilateral, no edema Neuro: Cannot be assessed Psych: Cannot be assessed Assessment/Plan: Active conditions: Acute hypoxemic respiratory failure secondary to near complete opacification of the left lung, currently on mechanical ventilation and endotracheal intubation, status post bronchoscopy Recurrent collapse and opacification of left lung secondary to mucous plugging status post repeat bronchoscopy again on 02/25/2024 Acute encephalopathy secondary to above Urine drug screen positive for marijuana stage IV non-small cell lung cancer with liver and bone metastases previously on Tafinlar. Status post chemotherapy and radiation Recent admission and discharged February 15, 2024 for hypotension, hallucinations Chronic conditions: Rheumatoid arthritis Obstructive sleep apnea Hypertension Hyperlipidemia Chronic obstructive pulmonary disease Former smoker Recommendations: Mechanical ventilator settings adjusted: FiO2 decreased to 35% Continue sedation with propofol Continue to wean off Levophed drip Continue IVF D5W-0.45 NS at 100cc/hr Continue DuoNeb inhalation as needed and [id number] Continue IV Solu-Medrol 40 mg every 8 hours Continue tube feeding with vital HP to reach goal rate Continue Rocephin IV for empiric coverage, currently on day 3 Bronchoscopy cytology still pending Pending further cultures from the BAL. The initial culture from the first BAL is nondiagnostic, showed mostly normal respiratory johanne Repeat chest xray in the AM DVT prophylaxis: Heparin 5000 units subcu twice daily GI prophylaxis: Protonix 40 mg IV daily Citlalli Lee MD PGY-1/Certified Medical Asst Dictation was produced using [employer] dictation software. please excuse any grammatical, word or spelling errors. Objective - Vital Signs Vital signs: Vital Signs Temp 97.5 F L 02/27/24 04:00 Pulse 58 L 02/27/24 07:50 Resp 36 H 02/27/24 06:30 BP 133/65 02/27/24 06:30 Pulse Ox 100 02/27/24 06:30 FiO2 45 02/27/24 07:36 Intake & Output 02/26/24 02/27/24 02/27/24 18:59 06:59 18:59 Intake Total 2991.298 2399.356 Output Total 855 1615 Balance 2136.298 784.356 Weight 81.4 kg Intake: IV 1376 1476 0.9 240 240 Dextrose 5%-0.45% NaCl 1, 1100 1200 000 ml @ 100 mls/hr IV . Q10H [facility] Rx#:[id number] Pressure bag 36 36 Intake, IV Titration 745.298 233.356 Amount Magnesium Sulfate-D5w Pmx 200 1 gm In Dextrose/Water 1 100ml.bag @ 100 mls/hr IVPB Q1H [facility] Rx#: [id number] Norepinephrine 4 mg In 196.471 58.058 Sodium Chloride 0.9% 250 ml @ 0.03 MCG/KG/MIN 8. 538 mls/hr IV .Q24H [facility] Rx#:[id number] cefTRIAXone 2 gm In 100 Sodium Chloride 0.9% 50 ml @ 100 mls/hr IVPB Q24HR [facility] Rx#:[id number] propofoL 1,000 mg In 248.827 175.298 Empty Bag 1 bag @ 15 MCG/ KG/MIN 6.723 mls/hr IV . [id number] [facility] Rx#:[id number] Tube Feeding 520 590 Other 350 100 Output: Urine 855 1615 Other: Voiding Method Indwelling Catheter Indwelling Catheter ABP, PAP, CO, CI - Last Documented Arterial Blood Pressure 144/53 - Labs CBC & Chem 7: 02/27/24 05:17 02/27/24 05:17 Labs: Abnormal Lab Results - Last 24 Hours (Table) 02/26/24 02/26/24 02/26/24 Range/Units 11:52 12:05 17:51 RBC (4.30-5.90) m/uL Hgb (13.0-17.5) gm/dL Hct (39.0-53.0) % Lymphocytes # (1.0-4.8) k/uL ABG pCO2 (35-45) mmHg ABG pO2 (83-108) mmHg ABG HCO3 (21-25) mmol/L ABG Total CO2 (19-24) mmol/L ABG O2 Saturation (94-97) % Hemoglobin (13.0-17.5) gm/dL BUN (9-20) mg/dL Glucose (74-99) mg/dL POC Glucose (mg/dL) 143 H 147 H 148 H (70-110) mg/dL Calcium (8.4-10.2) mg/dL 02/26/24 02/27/24 02/27/24 Range/Units 23:17 04:37 05:17 RBC (4.30-5.90) m/uL Hgb (13.0-17.5) gm/dL Hct (39.0-53.0) % Lymphocytes # (1.0-4.8) k/uL ABG pCO2 52 H (35-45) mmHg ABG pO2 145 H (83-108) mmHg ABG HCO3 30 H (21-25) mmol/L ABG Total CO2 32 H (19-24) mmol/L ABG O2 Saturation 99.8 H (94-97) % Hemoglobin 8.3 L (13.0-17.5) gm/dL BUN 21 H (9-20) mg/dL Glucose 146 H (74-99) mg/dL POC Glucose (mg/dL) 149 H (70-110) mg/dL Calcium 8.2 L (8.4-10.2) mg/dL 02/27/24 02/27/24 02/27/24 Range/Units 05:17 05:19 05:49 RBC 2.66 L (4.30-5.90) m/uL Hgb 8.4 L (13.0-17.5) gm/dL Hct 26.0 L (39.0-53.0) % Lymphocytes # 0.3 L (1.0-4.8) k/uL ABG pCO2 (35-45) mmHg ABG pO2 (83-108) mmHg ABG HCO3 (21-25) mmol/L ABG Total CO2 (19-24) mmol/L ABG O2 Saturation (94-97) % Hemoglobin (13.0-17.5) gm/dL BUN (9-20) mg/dL Glucose (74-99) mg/dL POC Glucose (mg/dL) 150 H 126 H (70-110) mg/dL Calcium (8.4-10.2) mg/dL Microbiology - Last 24 Hours (Table) 02/22/24 23:05 Blood Culture - Preliminary Blood 02/24/24 13:00 Gram Stain - Final Bronchoalviolar Lavage - Left Bronchial Washings Culture - Final
[2024-02-27 11:32] VITALS: BMI 23.6
[2024-02-27 12:09] LABS: Glucose,Whole Blood 126 mg/dL (70-110)
--- NOTE | 2024-02-27 12:48 | P.PN ---
Subjective Progress Note Date: 02/27/24 Principal diagnosis: SOB, confusion. Met NSCLC Pt intubated, sedated, chart reviewed. Objective - Vital Signs Vital signs: Vital Signs Temp 98.2 F 02/27/24 08:00 Pulse 68 02/27/24 12:22 Resp 24 02/27/24 11:00 BP 113/55 02/27/24 11:00 Pulse Ox 99 02/27/24 11:00 FiO2 35 02/27/24 12:01 Intake & Output 02/26/24 02/27/24 02/27/24 18:59 06:59 18:59 Intake Total 2991.298 2424.058 1091.772 Output Total 855 1615 525 Balance 2136.298 809.058 566.772 Weight 81.4 kg 81.4 kg Intake: IV 1376 1476 615 0.9 240 240 100 Dextrose 5%-0.45% NaCl 1, 1100 1200 500 000 ml @ 100 mls/hr IV . Q10H [facility] Rx#:[id number] Pressure bag 36 36 15 Intake, IV Titration 745.298 258.058 56.772 Amount Magnesium Sulfate-D5w Pmx 200 1 gm In Dextrose/Water 1 100ml.bag @ 100 mls/hr IVPB Q1H [facility] Rx#: [id number] Norepinephrine 4 mg In 196.471 58.058 Sodium Chloride 0.9% 250 ml @ 0.03 MCG/KG/MIN 8. 538 mls/hr IV .Q24H [facility] Rx#:[id number] cefTRIAXone 2 gm In 100 Sodium Chloride 0.9% 50 ml @ 100 mls/hr IVPB Q24HR [facility] Rx#:[id number] propofoL 1,000 mg In 248.827 200.000 56.772 Empty Bag 1 bag @ 15 MCG/ KG/MIN 6.723 mls/hr IV . [id number] [facility] Rx#:[id number] Tube Feeding 520 590 300 Other 350 100 120 Output: Urine 855 1615 525 Other: Voiding Method Indwelling Catheter Indwelling Catheter Indwelling Catheter ABP, PAP, CO, CI - Last Documented Arterial Blood Pressure 128/48 - Constitutional General appearance: Present: no acute distress, thin - EENT Eyes: Present: anicteric sclerae - Cardiovascular Rhythm: regular - Peripheral edema leg Peripheral Edema: bilateral: None - Labs CBC & Chem 7: 02/27/24 05:17 02/27/24 05:17 Labs: Abnormal Lab Results - Last 24 Hours (Table) 02/26/24 02/26/24 02/27/24 Range/Units 17:51 23:17 04:37 RBC (4.30-5.90) m/uL Hgb (13.0-17.5) gm/dL Hct (39.0-53.0) % Lymphocytes # (1.0-4.8) k/uL ABG pCO2 52 H (35-45) mmHg ABG pO2 145 H (83-108) mmHg ABG HCO3 30 H (21-25) mmol/L ABG Total CO2 32 H (19-24) mmol/L ABG O2 Saturation 99.8 H (94-97) % Hemoglobin 8.3 L (13.0-17.5) gm/dL BUN (9-20) mg/dL Glucose (74-99) mg/dL POC Glucose (mg/dL) 148 H 149 H (70-110) mg/dL Calcium (8.4-10.2) mg/dL 02/27/24 02/27/24 02/27/24 Range/Units 05:17 05:17 05:19 RBC 2.66 L (4.30-5.90) m/uL Hgb 8.4 L (13.0-17.5) gm/dL Hct 26.0 L (39.0-53.0) % Lymphocytes # 0.3 L (1.0-4.8) k/uL ABG pCO2 (35-45) mmHg ABG pO2 (83-108) mmHg ABG HCO3 (21-25) mmol/L ABG Total CO2 (19-24) mmol/L ABG O2 Saturation (94-97) % Hemoglobin (13.0-17.5) gm/dL BUN 21 H (9-20) mg/dL Glucose 146 H (74-99) mg/dL POC Glucose (mg/dL) 150 H (70-110) mg/dL Calcium 8.2 L (8.4-10.2) mg/dL 02/27/24 02/27/24 Range/Units 05:49 12:09 RBC (4.30-5.90) m/uL Hgb (13.0-17.5) gm/dL Hct (39.0-53.0) % Lymphocytes # (1.0-4.8) k/uL ABG pCO2 (35-45) mmHg ABG pO2 (83-108) mmHg ABG HCO3 (21-25) mmol/L ABG Total CO2 (19-24) mmol/L ABG O2 Saturation (94-97) % Hemoglobin (13.0-17.5) gm/dL BUN (9-20) mg/dL Glucose (74-99) mg/dL POC Glucose (mg/dL) 126 H 126 H (70-110) mg/dL Calcium (8.4-10.2) mg/dL Microbiology - Last 24 Hours (Table) 02/22/24 23:05 Blood Culture - Preliminary Blood 02/24/24 13:00 Gram Stain - Final Bronchoalviolar Lavage - Left Bronchial Washings Culture - Final - Imaging and Cardiology Chest x-ray: report reviewed Assessment and Plan (1) Altered mental status Current Visit: Yes Status: Acute Priority: Medium Code(s): R41.82 - ALTERED MENTAL STATUS, UNSPECIFIED SNOMED Code(s): 074145879 (2) COPD (chronic obstructive pulmonary disease) Current Visit: Yes Status: Suspected Priority: High Code(s): J44.9 - CHRONIC OBSTRUCTIVE PULMONARY DISEASE, UNSPECIFIED SNOMED Code(s): 09639461 (3) Pneumonia Current Visit: Yes Status: Suspected Priority: High Code(s): J18.9 - PNEUMONIA, UNSPECIFIED ORGANISM SNOMED Code(s): 243480690 (4) Lung cancer Current Visit: Yes Status: Acute Priority: High Code(s): C34.90 - MALIGNANT NEOPLASM OF UNSP PART OF UNSP BRONCHUS OR LUNG SNOMED Code(s): 586317979 Plan: Altered mental status -Improved after admit. Pt sedated and intubated post bronch -CT of the head without contrast, no evidence of midline shift, mass effect or intracranial bleed COPD/pneumonia -S/P bronchoscopy x 2, removal of mucus plugs. Endobronchial tumor seen, biopsied, path pending. -Improved aeration of lt lung, stable infiltrate/pl eff. CXR today reporting infiltrate in rt lung base, atelectasis vs pneumonia BRAF positive non-small cell lung cancer, metastatic disease -Patient unfortunately has been trialed on 2 BRAF inhibitors. Most recent treatment was with dabrafenib/tramentinib November to December but, unfortunately patient has not been able to tolerate treatment. -Plans were to resume March 05 with a reduced dose and follow-up with Dr. Leigh 03/12 to see if tolerating. Will follow hospital course. During our discussion with patient on admit he was questioning if he wanted to continue on treatment. He was agreeable to antibiotics and bronchoscopy to assess his situation. Case was discussed with last week. Will see how hospital course progresses. Will keep in contact with pt and .
--- NOTE | 2024-02-27 14:24 | P.PN ---
Subjective Interval History: This is a pleasant 78 years old male with past medical history of left lung cancer and he follow-up with Dr. Rivero and chronic hypoxic respiratory failure on 3 L oxygen via nasal cannula and other medical problems as below Presents because of confusion, patient was hard to wake up yesterday by his and he was unresponsive for some time. At baseline he is awake alert oriented in time 1-2. He has possible also metastatic disease and last treatment he received for his cancer disease was last August However patient does not complain from shortness of breath although he is using the mask and his oxygen requirement went up to 15 L/min. No coughing. No left- sided chest pain He has central chest pain in the lower chest which is coincides with sternal lesion seen on CAT scan below. No specific GI/ symptom, complains from dizziness and decreased appetite but no headache weakness or numbness At baseline he uses a walker Currently he is not a smoker, not drink alcohol. Patient is afebrile but blood pressure is borderline 101/63. He has unremarkable CBC, BMP, LFT, INR, troponin and urine analysis. D-dimer was elevated 2.17, proBNP was elevated to 3610. Urine drug screen is positive for marijuana EKG showing sinus tachycardia with no ST-T changes Chest x-ray showing opacified left lung may be large pleural effusion versus large atelectasis CTA of the chest showing no PE but there is airspace consolidative and through entire left lung with diffuse left lower lobe opacification Patient started on ceftriaxone and Zithromax 02/24/24 Patient sitting at the bed age, complaining from mild dyspnea, currently he is saturating high 90s on 6 L oxygen compared to 3 L at home. His central chest pain from his sternal lesion suspicious to be metastasis is improved, currently no chest pain However he complains from right knee pain, there is no significant swelling however there is warmth. Therefore we will check x-ray of the right knee. Also may benefit from ultrasound evaluation. His pro- Calcitonin is elevated 32.7 Repeat chest x-ray showing his left near complete opacification of the left lung is significantly improved and his left leg is opened but there is evidence of left pleural effusion. Hemodynamically stable. WBC dropped from 10 down to 4.9 and hemoglobin 12 to down to 9.8 which is his baseline most likely under the effect of hemodilution. BMP is unremarkable He remains on ceftriaxone and Zithromax and D5 half-normal saline at 50 mL/h 02/24patient was seen and examined today. Patient was transferred to ICU overnight due to developing more lethargy, worsening chest x-ray showing another episode of complete opacification of left lung, patient underwent intubation with bronchoscopy and suctioning of mucous plugs from his left lung, cleared all the mucous plugs from the airways. Family at bedside. Patient is currently on FiO2 50%. Remains empirically on antibiotics and on bronchodilators, ICU following. WBC 7.6, hemoglobin 12.2. BMP unremarkable. BAL culture pending. On Rocephin. 02/25--patient remains in the ICU, intubated and on mechanical ventilation, ICU following. Currently on Levophed small dose, on IV fluids. Urine output improving with fluid boluses. Currently on Rocephin, cultures from BAL pending. Chest x-ray today showed improvement in left lung opacifications. Endobronchial tumor biopsies pending. BMP unremarkable. WBC 6.4, hemoglobin 8.7, no sign or symptom of active bleed.. ABG showed pCO2 50, pH of 7.34, pO2 of 98. 02/26--patient in the ICU, intubated on mechanical ventilation, ICU following, family at bedside. Remains on IV fluids. Chest x-ray showed right lung base opacification concerning for atelectasis or pneumonia with stable left lower lobe infiltrate/pleural effusion. WBCs 8.2, hemoglobin 8.4, BUN 21, creatinine 0.95. Blood glucose 146. Urine output around 2500 mL. Assessment and plan: Acute hypoxic respiratory failure secondary to complete opacification of left lung, required intubation and mechanical ventilation. Status post bronchoscopy with evidence of endobronchial tumorbiopsies taken Acute metabolic encephalopathy: Urine drug screen positive for marijuana History of stage IV non-small cell lung cancer with liver and bone metastasis status post chemo and radiation Recent admission for hypertension, hallucinations Obstructive sleep apnea COPD Hypertension Hyperlipidemia Former smoker Rheumatoid arthritis Plan: Currently intubated on mechanical ventilation in the ICU, pulmonary following, on Levophed. Bronchoscopy showing endobronchial tumor in the posterior segment of left lower lobe, required intubation and mechanical ventilation Awaiting biopsy results, awaiting BAL cultures Empirically on Rocephin Oncology consulted Patient is critically ill, prognosis guarded. DVT prophylaxis: Subcutaneous heparin Monitor vital signs and labs Labs and medication were reviewed. Continue same treatment. Further recommendations as per clinical course of the patient PHYSICAL EXAMINATION: GENERAL: intubated on mechanical ventilation. HEENT: EOMI, Sclerae anicteric, Moist Mucous membranes Neck: Supple, Non tender, No JVD PULMONARY: Equal breath souds B/L, No wheezing, bilateral crackles. CARDIOVASCULAR: S1, S2 present. No murmurs, rubs, or gallops. ABDOMEN: Soft, nontender, nondistended, normoactive bowel sounds. No guarding or rebound tenderness. MUSCULOSKELETAL: No edema, No cyanosis. No clubbing. Normal ROM. Intact peripheral pulses. NEUROLOGICAL: Intubated and sedated. Skin: No Rash REVIEW OF SYSTEMS: Limited review of system. Dictation was produced using [employer] dictation software. please excuse any grammatical, word or spelling errors. Objective - Vital Signs Vital signs: Vital Signs Temp 98.9 F 02/27/24 12:00 Pulse 88 02/27/24 12:30 Resp 24 02/27/24 12:30 BP 109/56 02/27/24 12:30 Pulse Ox 99 02/27/24 12:30 FiO2 35 02/27/24 12:01 Intake & Output 02/26/24 02/27/24 02/27/24 18:59 06:59 18:59 Intake Total 2991.298 2424.058 1274.772 Output Total 855 1615 525 Balance 2136.298 809.058 749.772 Weight 81.4 kg 81.4 kg Intake: IV 1376 1476 738 0.9 240 240 120 Dextrose 5%-0.45% NaCl 1, 1100 1200 600 000 ml @ 100 mls/hr IV . Q10H [facility] Rx#:[id number] Pressure bag 36 36 18 Intake, IV Titration 745.298 258.058 56.772 Amount Magnesium Sulfate-D5w Pmx 200 1 gm In Dextrose/Water 1 100ml.bag @ 100 mls/hr IVPB Q1H [facility] Rx#: [id number] Norepinephrine 4 mg In 196.471 58.058 Sodium Chloride 0.9% 250 ml @ 0.03 MCG/KG/MIN 8. 538 mls/hr IV .Q24H [facility] Rx#:[id number] cefTRIAXone 2 gm In 100 Sodium Chloride 0.9% 50 ml @ 100 mls/hr IVPB Q24HR [facility] Rx#:[id number] propofoL 1,000 mg In 248.827 200.000 56.772 Empty Bag 1 bag @ 15 MCG/ KG/MIN 6.723 mls/hr IV . [id number] [facility] Rx#:[id number] Tube Feeding 520 590 360 Other 350 100 120 Output: Urine 855 1615 525 Other: Voiding Method Indwelling Catheter Indwelling Catheter Indwelling Catheter ABP, PAP, CO, CI - Last Documented Arterial Blood Pressure 134/50 - Labs CBC & Chem 7: 02/27/24 05:17 02/27/24 05:17 Labs: Abnormal Lab Results - Last 24 Hours (Table) 02/26/24 02/26/24 02/27/24 Range/Units 17:51 23:17 04:37 RBC (4.30-5.90) m/uL Hgb (13.0-17.5) gm/dL Hct (39.0-53.0) % Lymphocytes # (1.0-4.8) k/uL ABG pCO2 52 H (35-45) mmHg ABG pO2 145 H (83-108) mmHg ABG HCO3 30 H (21-25) mmol/L ABG Total CO2 32 H (19-24) mmol/L ABG O2 Saturation 99.8 H (94-97) % Hemoglobin 8.3 L (13.0-17.5) gm/dL BUN (9-20) mg/dL Glucose (74-99) mg/dL POC Glucose (mg/dL) 148 H 149 H (70-110) mg/dL Calcium (8.4-10.2) mg/dL 02/27/24 02/27/24 02/27/24 Range/Units 05:17 05:17 05:19 RBC 2.66 L (4.30-5.90) m/uL Hgb 8.4 L (13.0-17.5) gm/dL Hct 26.0 L (39.0-53.0) % Lymphocytes # 0.3 L (1.0-4.8) k/uL ABG pCO2 (35-45) mmHg ABG pO2 (83-108) mmHg ABG HCO3 (21-25) mmol/L ABG Total CO2 (19-24) mmol/L ABG O2 Saturation (94-97) % Hemoglobin (13.0-17.5) gm/dL BUN 21 H (9-20) mg/dL Glucose 146 H (74-99) mg/dL POC Glucose (mg/dL) 150 H (70-110) mg/dL Calcium 8.2 L (8.4-10.2) mg/dL 02/27/24 02/27/24 Range/Units 05:49 12:09 RBC (4.30-5.90) m/uL Hgb (13.0-17.5) gm/dL Hct (39.0-53.0) % Lymphocytes # (1.0-4.8) k/uL ABG pCO2 (35-45) mmHg ABG pO2 (83-108) mmHg ABG HCO3 (21-25) mmol/L ABG Total CO2 (19-24) mmol/L ABG O2 Saturation (94-97) % Hemoglobin (13.0-17.5) gm/dL BUN (9-20) mg/dL Glucose (74-99) mg/dL POC Glucose (mg/dL) 126 H 126 H (70-110) mg/dL Calcium (8.4-10.2) mg/dL Microbiology - Last 24 Hours (Table) 02/22/24 23:05 Blood Culture - Preliminary Blood
[2024-02-27] MEDS: FERROUS SULFATE ORAL ELIXIR 300 MG/5 ML CUP PO SCH (15:45)
[2024-02-27 17:41] LABS: Glucose,Whole Blood 122 mg/dL (70-110)
[2024-02-28 00:06] LABS: Glucose,Whole Blood 117 mg/dL (70-110)
[2024-02-28 05:13] LABS: ABG Base Excess 4.5 mmol/L; ABG HCO3 30 mmol/L (21-25); ABG PCO2 50 mmHg (35-45); ABG PH 7.39 (7.35-7.45); ABG PO2 70 mmHg (83-108); ABG TCO2 32 mmol/L (19-24)
[2024-02-28 05:14] LABS: Glucose,Whole Blood 133 mg/dL (70-110)
[2024-02-28 05:21] LABS: Basophils % (A) 0 %; Eosinophils % (A) 0 %; HCT 26.6 % (39.0-53.0); HGB 8.4 gm/dL (13.0-17.5); Hypochromasia Moderate; Lymphocytes # (A) 0.4 k/uL (1.0-4.8); Lymphocytes % (A) 4 %; MCH 31.3 pg (25.0-35.0); MCHC 31.8 g/dL (31.0-37.0); MCV 98.6 fL (80.0-100.0); Mean Platelet Volume 9.4; Monocytes # (A) 0.3 k/uL (0-1.0); Monocytes % (A) 3 %; Neutrophils # (A) 8.4 k/uL (1.3-7.7); Neutrophils % (A) 93 %; Platelet Count 155 k/uL (150-450); RDW 15.3 % (11.5-15.5)
[2024-02-28 05:46] LABS: African American GFR (CKD) >90 (>60 ml/min/1.73 sqM); Anion Gap 5 mmol/L; Blood Urea Nitrogen 27 mg/dL (9-20); Carbon Dioxide 30 mmol/L (22-30); Chloride 104 mmol/L (98-107); Glucose 133 mg/dL (74-99); Non-African American GFR(CKD) 86 (>60 ml/min/1.73 sqM); Potassium 4.5 mmol/L (3.5-5.1); Sodium 139 mmol/L (137-145)
--- NOTE | 2024-02-28 07:52 | XR ---
EXAMINATION TYPE: XR chest 1V portable DATE OF EXAM: 02/28/2024 4:00 AM COMPARISON: 02/27/2024 CLINICAL INDICATION: Male, 78 years old with history of Tube placement, previous abnormal chest TECHNIQUE: XR chest 1V portable view(s) obtained. FINDINGS: The heart size is normal. The pulmonary vasculature is normal. Left lower lobe infiltrate is present. Minimal effusion may be present. Findings are similar to harper rison. Endotracheal tube tip is 4 cm above the júnior. Nasogastric tube transverses thorax. IMPRESSION: 1. Left lower lobe infiltrate and small left pleural effusion. Small right lower lobe infiltrate is a t the diaphragm appears stable. Continued follow-up recommended. 2. Lines and catheters discussed above [facility], , 02/28/2024 7:50 AM
[2024-02-28 08:59] VITALS: TEMP 97.2
[2024-02-28] MEDS ORDERED: MORPHINE SULFATE 2 MG/ML SYRINGE IV PRN (11:06)
[2024-02-28] MEDS ORDERED: MORPHINE SULFATE 4 MG/ML SYRINGE IV PRN (11:06)
--- NOTE | 2024-02-28 11:27 | P.PN ---
Subjective Progress Note Date: 02/28/24 Principal diagnosis: Acute hypoxic respiratory failure with near complete opacification of left lung most likely secondary to mucous plugging and underlying non-small cell lung canc er involving left lower lobe This is a 78-year-old male patient with a history of hypertension, hyp erlipidemia, mild intermittent bronchial asthma, former smoker on home oxygen at 3 L. 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 He had undergone chemotherapy and radiation through July 2023. He is most recently on dabrafenib Tafinlar. He was just discharged from here February 15, 2024 for hypoxic respiratory fail ure, hypotension and hallucinations. He had been at home recovering with his when she found him to be minimally responsive and severe weakness unable to get him out of bed. CT scan of the brain revealed no acute intracranial hemorrhage, midline shift or mass effect. X-ray reveals opacified left hemithorax with possible left pleural effusion or atelectatic changes. CT scan of the chest revealed airspace consolidation throughout the entire left lung, consistent with diffuse lobar pneumonia. Debris occluding left lower lobe bronchi. Moderate left pleural effusion. Expansive lesion in the sternum measuring 6.8 x 2.0 cm suspect metastatic disease. No pulmonary embolism. White count 10.3. Hemoglobin 12.2. Platelets 239. INR 1.0. D-dimer 2.17. Sodium 140. Potassium 5.4. Bicarb 27. BUN 20. Creatinine 1.04. Glucose 111. Urinalysis clean. Urine drug screen positive for marijuana. He was seen 02/22 as a consult in the emergency department. He remains altered. Poor historian. He was maintaining O2 saturations up to 100% on a Ventimask. Afebrile. Hemodynamically stable. 02/27/2024 patient seen and examined at bedside. Patient still in the ICU. Patient still sedated, intubated, and mechanically ventilated. No acute events overnight. Mechanical ventilator still on assist-control with a rate of 24, tidal volume 450, PEEP of 8 with FiO2 45%. Patient still currently on [id number]- 0.45% NS at 100cc/hour, propofol with a rate of 50 and on Levophed 0.03 mcg/kg/m in. Chest x-ray today shows developing into the base of the right lung base concerning for atelectasis or pneumonia with stable left lower lobe infiltrate and/or pleural effusion. ABG shows pH of 7.37, CO2 52, O2 145. Labs today show WBC 8.2, hemoglobin 8.4, hematocrit 26, sodium 137, potassium 4.3, bicarb 29, BUN 21, creatinine 0.95, glucose 146, calcium 8.2, magnesium 2.1. Urine output today at 2470 mL. 02/28/2024 patient seen and examined at bedside. Patient still in the ICU sedated, intubated, and mechanically ventilated. Overnight, patient did not experience episodes of agitation when propofol was attempted to be weaned off. Mechanical ventilator on assist-control with a rate of 24, tidal volume 450 PEEP of 8 and FiO2 of 35%. Patient still on D50.45 normal saline at 100 cc/h, and propofol at a rate of 55. Chest x-ray today shows left lower lobe infiltrate and small left pleural effusion with ET and nasogastric tube in place. ABG shows pO2 of 70, pCO2 50 with a pH of 7.39. Labs today show WBC of 9 hemoglobin 8.4 platelet count 1 55,000 sodium 139 potassium 4.5 bicarb 30 BUN 27 creatinine 0.78 glucose 133 calcium 0.8. Fluid balance is at +2668 mL with a urine output of 2600 mL on a Miner catheter. Review of systems: Cannot be assessed Pertinent imaging and labs reviewed. Physical examination: Vital signs reviewed General: non toxic, no distress, currently sedated, intubated, and mechanically ventilated Derm: no unusual rashes/lesions, warm Head: atraumatic, normocephalic, symmetric Eyes: EOMI, anicteric sclera, pupils equal round reactive to light ENT: Nose and ears atraumatic Neck: No cervical lymphadenopathy, trachea midline, supple Mouth: no lip lesion, mucus membranes moist Cardiovascular: S1S2 reg, no murmur Lungs: Decreased breath sounds at the left lower lobe, no rhonchi, no rales, no accessory muscle use Abdominal: soft, nontender to palpation, no guarding Ext: no gross muscle atrophy, no contractures, positive dorsalis pedis pulse bilateral, no edema Neuro: Cannot be assessed Psych: Cannot be assessed Assessment/Plan: Active conditions: Acute hypoxemic respiratory failure secondary to near complete opacification of the left lung, currently on mechanical ventilation and endotracheal intubation, status post bronchoscopy Recurrent collapse and opacification of left lung secondary to mucous plugging status post repeat bronchoscopy again on 02/25/2024 Acute encephalopathy secondary to above Urine drug screen positive for marijuana stage IV non-small cell lung cancer with liver and bone metastases previously on Tafinlar. Status post chemotherapy and radiation Recent admission and discharged February 15, 2024 for hypotension, hallucinations Chronic conditions: Rheumatoid arthritis Obstructive sleep apnea Hypertension Hyperlipidemia Chronic obstructive pulmonary disease Former smoker Recommendations: Continue oxygenation and ventilation support with mechanical ventilator Continue sedation with propofol Continue IVF D5W-0.45 NS at 100cc/hr Continue DuoNeb inhalation as needed and [id number] Continue IV Solu-Medrol 40 mg every 8 hours Continue tube feeding with vital HP to reach goal rate Continue Rocephin IV for empiric coverage, currently on day 3 Bronchoscopy cytology still pending Pending further cultures from the BAL. The initial culture from the first BAL is nondiagnostic, showed mostly normal respiratory johanne Repeat chest xray in the AM DVT prophylaxis: Heparin 5000 units subcu twice daily GI prophylaxis: Protonix 40 mg IV daily Prognosis: Poor. Discussed plan would and son at bedside. Will have goals of care discussion due to poor clinical state of the patient. Citlalli Lee MD PGY-1/Civil Engineering Assistant Dictation was produced using [employer] dictation software. please excuse any gram matical, word or spelling errors. Objective - Vital Signs Vital signs: Vital Signs Temp 97.2 F L 02/28/24 08:00 Pulse 107 H 02/28/24 08:30 Resp 24 02/28/24 08:30 BP 115/63 02/28/24 02:00 Pulse Ox 95 02/28/24 08:30 FiO2 35 02/28/24 08:30 Intake & Output 02/27/24 02/28/24 02/28/24 18:59 06:59 18:59 Intake Total 2582.772 2686.125 855.738 Output Total 1175 1425 335 Balance 5264.343 1020.125 520.738 Weight 81.4 kg 82.5 kg Intake: IV 1486 1476 349 0.9 240 240 40 Dextrose 5%-0.45% NaCl 1, 1200 1200 300 000 ml @ 100 mls/hr IV . Q10H [facility] Rx#:[id number] Invasive Line 2 10 Pressure bag 36 36 9 Intake, IV Titration 156.772 280.125 96.738 Amount propofoL 1,000 mg In 156.772 280.125 96.738 Empty Bag 1 bag @ 15 MCG/ KG/MIN 6.723 mls/hr IV . [id number] [facility] Rx#:[id number] Tube Feeding 760 840 280 Other 180 90 130 Output: Urine 1175 1425 335 Other: Voiding Method Indwelling Catheter Indwelling Catheter # Bowel Movements 0 0 0 ABP, PAP, CO, CI - Last Documented Arterial Blood Pressure 112/45 - Labs CBC & Chem 7: 02/28/24 05:13 02/28/24 05:13 Labs: Abnormal Lab Results - Last 24 Hours (Table) 02/27/24 02/27/24 02/27/24 Range/Units 05:17 12:09 17:39 RBC (4.30-5.90) m/uL Hgb (13.0-17.5) gm/dL Hct (39.0-53.0) % Neutrophils # (1.3-7.7) k/uL Lymphocytes # (1.0-4.8) k/uL ABG pCO2 (35-45) mmHg ABG pO2 (83-108) mmHg ABG HCO3 (21-25) mmol/L ABG Total CO2 (19-24) mmol/L Hemoglobin (13.0-17.5) gm/dL BUN (9-20) mg/dL Glucose (74-99) mg/dL POC Glucose (mg/dL) 126 H 122 H (70-110) mg/dL Calcium (8.4-10.2) mg/dL Procalcitonin 47.00 H (0.02-0.50) ng/mL 02/28/24 02/28/24 02/28/24 Range/Units 00:05 04:43 05:13 RBC 2.70 L (4.30-5.90) m/uL Hgb 8.4 L (13.0-17.5) gm/dL Hct 26.6 L (39.0-53.0) % Neutrophils # 8.4 H (1.3-7.7) k/uL Lymphocytes # 0.4 L (1.0-4.8) k/uL ABG pCO2 50 H (35-45) mmHg ABG pO2 70 L (83-108) mmHg ABG HCO3 30 H (21-25) mmol/L ABG Total CO2 32 H (19-24) mmol/L Hemoglobin 8.4 L (13.0-17.5) gm/dL BUN (9-20) mg/dL Glucose (74-99) mg/dL POC Glucose (mg/dL) 117 H (70-110) mg/dL Calcium (8.4-10.2) mg/dL Procalcitonin (0.02-0.50) ng/mL 02/28/24 02/28/24 Range/Units 05:13 05:13 RBC (4.30-5.90) m/uL Hgb (13.0-17.5) gm/dL Hct (39.0-53.0) % Neutrophils # (1.3-7.7) k/uL Lymphocytes # (1.0-4.8) k/uL ABG pCO2 (35-45) mmHg ABG pO2 (83-108) mmHg ABG HCO3 (21-25) mmol/L ABG Total CO2 (19-24) mmol/L Hemoglobin (13.0-17.5) gm/dL BUN 27 H (9-20) mg/dL Glucose 133 H (74-99) mg/dL POC Glucose (mg/dL) 133 H (70-110) mg/dL Calcium 8.0 L (8.4-10.2) mg/dL Procalcitonin (0.02-0.50) ng/mL Microbiology - Last 24 Hours (Table) 02/24/24 13:00 Fungal Culture - Preliminary Bronchoalviolar Lavage - Left Yeast species
[2024-02-28] MEDS: MORPHINE SULFATE (100 MG/2 ML) 100 MG in SODIUM CHLORIDE 0.9% 100 ML IV SCH (11:58)
[2024-02-28] MEDS: SCOPOLAMINE 1 MG/72 HR PATCH TRANSDERM SCH (12:10)
[2024-02-28] MEDS: MORPHINE SULFATE 4 MG/ML SYRINGE IVP ONE (12:39)
[2024-02-28] MEDS: LORazepam 2 MG/ML INJ IV PRN (13:06)
[2024-02-28] MEDS: ATROPINE OPHTH SOLN 1% 5ML BTL SUBLINGUAL PRN (13:06)
[2024-02-28 14:28] VITALS: BP 38/22
[2024-02-28 15:38] VITALS: PULSE 0; RESP 0
--- NOTE | 2024-02-28 17:22 | P.DS ---
Providers Date of admission: 02/23/24 05:18 Expected date of discharge: 02/28/24 Attending physician: Dank Mantilla Consults: 02/23/24 08:32 Consult Physician Routine Consulting Provider: Lucie Little Consult Reason/Comments: opacified left lung, poss pna Do you want consulting provider notified?: Yes Primary care physician: Nalini Palmer [facility] Course: Discharge diagnoses: Assessment and plan: Acute hypoxic respiratory failure secondary to complete opacification of left lung, required intubation and mechanical ventilation. Status post bronchoscopy with evidence of endobronchial tumorbiopsies taken Acute metabolic encephalopathy: Urine drug screen positive for marijuana History of stage IV non-small cell lung cancer with liver and bone metastasis status post chemo and radiation Recent admission for hypertension, hallucinations Obstructive sleep apnea COPD Hypertension Hyperlipidemia Former smoker Rheumatoid arthritis Patient required intubation mechanical ventilation in the ICU, also required Levophed for hypotension. Bronchoscopy showed endobronchial tumor in the posterior segment of left lower lobe, was empirically on Rocephin, oncology was consulted. Family decided CODE STATUS to be changed to comfort care. Patient on 02/28/2024 at 1507. Hospital course: This is a pleasant 78 years old male with past medical history of left lung cancer and he follow-up with Dr. Rivero and chronic hypoxic respiratory failure on 3 L oxygen via nasal cannula and other medical problems as below Presents because of confusion, patient was hard to wake up yesterday by his and he was unresponsive for some time. At baseline he is awake alert oriented in time 1-2. He has possible also metastatic disease and last treatment he received for his cancer disease was last August However patient does not complain from shortness of breath although he is using the mask and his oxygen requirement went up to 15 L/min. No coughing. No left- sided chest pain He has central chest pain in the lower chest which is coincides with sternal lesion seen on CAT scan below. No specific GI/ symptom, complains from dizziness and decreased appetite but no headache weakness or numbness At baseline he uses a walker Currently he is not a smoker, not drink alcohol. Patient is afebrile but blood pressure is borderline 101/63. He has unremarkable CBC, BMP, LFT, INR, troponin and urine analysis. D-dimer was elevated 2.17, proBNP was elevated to 3610. Urine drug screen is positive for marijuana EKG showing sinus tachycardia with no ST-T changes Chest x-ray showing opacified left lung may be large pleural effusion versus large atelectasis CTA of the chest showing no PE but there is airspace consolidative and through entire left lung with diffuse left lower lobe opacification Patient started on ceftriaxone and Zithromax 02/24/24 Patient sitting at the bed age, complaining from mild dyspnea, currently he is saturating high 90s on 6 L oxygen compared to 3 L at home. His central chest pain from his sternal lesion suspicious to be metastasis is improved, currently no chest pain However he complains from right knee pain, there is no significant swelling however there is warmth. Therefore we will check x-ray of the right knee. Also may benefit from ultrasound evaluation. His pro- Calcitonin is elevated 32.7 Repeat chest x-ray showing his left near complete opacification of the left lung is significantly improved and his left leg is opened but there is evidence of left pleural effusion. Hemodynamically stable. WBC dropped from 10 down to 4.9 and hemoglobin 12 to down to 9.8 which is his baseline most likely under the effect of hemodilution. BMP is unremarkable He remains on ceftriaxone and Zithromax and D5 half-normal saline at 50 mL/h 02/24patient was seen and examined today. Patient was transferred to ICU overnight due to developing more lethargy, worsening chest x-ray showing another episode of complete opacification of left lung, patient underwent intubation with bronchoscopy and suctioning of mucous plugs from his left lung, cleared all the mucous plugs from the airways. Family at bedside. Patient is currently on FiO2 50%. Remains empirically on antibiotics and on bronchodilators, ICU following. WBC 7.6, hemoglobin 12.2. BMP unremarkable. BAL culture pending. On Rocephin. 02/25--patient remains in the ICU, intubated and on mechanical ventilation, ICU following. Currently on Levophed small dose, on IV fluids. Urine output improving with fluid boluses. Currently on Rocephin, cultures from BAL pending. Chest x-ray today showed improvement in left lung opacifications. Endobronchial tumor biopsies pending. BMP unremarkable. WBC 6.4, hemoglobin 8.7, no sign or symptom of active bleed.. ABG showed pCO2 50, pH of 7.34, pO2 of 98. 02/26--patient in the ICU, intubated on mechanical ventilation, ICU following, family at bedside. Remains on IV fluids. Chest x-ray showed right lung base opacification concerning for atelectasis or pneumonia with stable left lower lobe infiltrate/pleural effusion. WBCs 8.2, hemoglobin 8.4, BUN 21, creatinine 0.95. Blood glucose 146. Urine output around 2500 mL. 02/27--Family decided CODE STATUS to be changed to comfort care. Patient on 02/28/2024 at 1507. PHYSICAL EXAMINATION: Patient . Dictation was produced using [employer] dictation software. please excuse any grammatical, word or spelling errors. Plan - Discharge Summary Discharge Rx Participant: No New Discharge Prescriptions: No Action allopurinoL [Zyloprim] 100 mg PO HS@2000 Pramipexole Di-HCl [Mirapex] 1.5 mg PO BID@0800,2000 Montelukast [Singulair] 10 mg PO HS@2000 Tamsulosin [Flomax] 0.4 mg PO DAILY@0800 Ferrous Sulfate [Iron (65 MG Elemental)] 975 mg PO DAILY@1400 Ergocalciferol (Vitamin D2) [Drisdol (50,000 Iu)] 1,250 mcg PO Q14D Albuterol Sulfate [Albuterol Sulfate Hfa] 2 puff INHALATION RT-Q4H PRN PRN Reason: Shortness Of Breath Calcium Carbonate [Calcium] 600 mg PO BID@1400,2000 Cholecalciferol [Vitamin D3 (10 Mcg = 400 Iu)] 10 mcg PO BID@1400,2000 Docusate Sodium 250 mg PO BID@0800,1400 Omeprazole [PriLOSEC] 40 mg PO DAILY@0800 Magnesium 250 mg PO DAILY@0800 Rosuvastatin Calcium [Crestor] 40 mg PO DAILY@0800 Dabrafenib (Tafinlar) 50mg Cap 50 mg PO BID Metoprolol Succinate (ER) [Toprol XL] 25 mg PO DAILY #30 tab Megestrol [Megace] 400 mg PO TID PRN PRN Reason: appetite Ipratropium-Albuterol Nebulize [Duoneb 0.5 mg-3 mg/3 ml Soln] 3 ml INHALATION RT-QID #120 each Fluticasone Propion/Salmeterol [Advair 250-50 Diskus] 2 puff INHALATION RT- BID Albuterol Nebulized [Ventolin Nebulized] 2.5 mg INHALATION RT-BID Benralizumab [Fasenra] 30 mg SQ Q56D Zoledronic Acid [Zometa] 4 mg IV Q90D Ondansetron Odt [Zofran ODT] 4 mg PO DAILY PRN PRN Reason: Nausea Morphine Sulfate ER [Ms Contin] 30 mg PO BID PRN PRN Reason: Pain HYDROcodone/APAP 10-325MG [[place] 10-325] 1 tab PO Q6H PRN PRN Reason: Pain Trametinib Dimethyl Sulfoxide [Mekinist] 0.5 mg PO BID Mirtazapine [Remeron] 15 mg PO HS@1999 Furosemide [Lasix] 40 mg PO DAILY Discharge Medication List Pramipexole Di-HCl [Mirapex] 1.5 mg PO BID@799,199901/03/14 [History] allopurinoL [Zyloprim] 100 mg PO HS@199901/03/14 [History] Albuterol Sulfate [Albuterol Sulfate Hfa] 2 puff INHALATION RT-Q4H PRN 04/15/23 [History] Ergocalciferol (Vitamin D2) [Drisdol (50,000 Iu)] 1,250 mcg PO Q14D 04/15/23 [History] Ferrous Sulfate [Iron (65 MG Elemental)] 975 mg PO DAILY@1400 04/15/23 [History] Fluticasone Propion/Salmeterol [Advair 250-50 Diskus] 2 puff INHALATION RT-BID 04/15/23 [History] Montelukast [Singulair] 10 mg PO HS@199904/15/23 [History] Tamsulosin [Flomax] 0.4 mg PO DAILY@0800 04/15/23 [History] Albuterol Nebulized [Ventolin Nebulized] 2.5 mg INHALATION RT-BID 09/08/23 [History] Benralizumab [Fasenra] 30 mg SQ Q56D 09/08/23 [History] Calcium Carbonate [Calcium] 600 mg PO BID@1399,199909/08/23 [History] Cholecalciferol [Vitamin D3 (10 Mcg = 400 Iu)] 10 mcg PO BID@1399,199909/08/23 [History] Docusate Sodium 250 mg PO BID@0800,1400 09/08/23 [History] Omeprazole [PriLOSEC] 40 mg PO DAILY@0800 09/08/23 [History] Zoledronic Acid [Zometa] 4 mg IV Q90D 09/08/23 [History] Magnesium 250 mg PO DAILY@0800 09/25/23 [History] Ondansetron Odt [Zofran ODT] 4 mg PO DAILY PRN 09/25/23 [History] HYDROcodone/APAP 10-325MG [[place] 10-325] 1 tab PO Q6H PRN 11/08/23 [History] Morphine Sulfate ER [Ms Contin] 30 mg PO BID PRN 11/08/23 [History] Rosuvastatin Calcium [Crestor] 40 mg PO DAILY@79911/08/23 [History] Dabrafenib (Tafinlar) 50mg Cap 50 mg PO BID 01/07/24 [History] Mirtazapine [Remeron] 15 mg PO HS@199901/07/24 [History] Trametinib Dimethyl Sulfoxide [Mekinist] 0.5 mg PO BID 01/07/24 [History] Metoprolol Succinate (ER) [Toprol XL] 25 mg PO DAILY #30 tab 01/11/24 [Rx] Furosemide [Lasix] 40 mg PO DAILY 02/10/24 [History] Megestrol [Megace] 400 mg PO TID PRN 02/10/24 [History] Ipratropium-Albuterol Nebulize [Duoneb 0.5 mg-3 mg/3 ml Soln] 3 ml INHALATION RT-QID #120 each 02/15/24 [Rx] Follow up Appointment(s)/Referral(s): [facility] - 1 Week Nalini Palmer MD [Primary Care Provider] - 1-2 days Discharge Disposition: - Preliminary Cause of Preliminary Cause of : Lung cancer
--- NOTE | 2024-03-05 11:36 | CDI ---
Documentation Clarification Form Date: 03/05/2024 10:01:30 AM From: Zayra Fernandez RN, CCDS Phone: [phone] Admit Date: 02/23/2024 05:18:00 AM Patient Name: Jett Babcock Visit Number: [id number] Discharge Date: 02/28/2024 04:20:00 PM ATTENTION: The Clinical Documentation Specialists (CDI) and [facility] Coding Staff appreciate your assistance in clarifying documentation. Please respond to the clarification below the line at the bottom and electronically sign. The CDI & [facility] Coding staff will review the response and follow-up if needed. Please note: Queries are made part of the Legal Health Record. If you have any questions, please contact the author of this message via ITS. DoctorSergei Clark Hypotension required Levophed is documented in the discharge summary. Additional clarification regarding this diagnosis is requested. History/Risk Factors: Asthma, COPD, GERD/Reflux, Hyperlipidemia, Cancer Stage IV lung, (BRAF non-small cell) Clinical Indicators: 78-year-old man with history of stage IV lung cancer present with altered mental status, weakness 02/22 CXR: Opacified LEFT hemithorax, correlate for large LEFT pleural effusion with near complete atelectasis of the LEFT lung. 02/24 CXR: Now complete opacification of the left lung likely secondary to large pleural effusion with associated atelectasis. 02/24 pulmonary progress note: recommended intubation and bronchoscopy and BAL of the left lung. 02/24 VS: 108/68 87 24 99.0 FIO2 80% 02/24 Labs: WBC 7.6 HGB 10.2 CR 103; 02/24 (10:00) 88/52 108 25, (10:15) 62/39 110 13 Treatment: Cardiac Telemetry monitoring Levophed 4 MG IV (titrate per orders .9 NS 1,000 ML Bolus 02/24 Can the hypotension be further specified? [ x ] Hypotension with Shock [ ] Other Condition, please specify [ ] Unable to determine (Template Last Revised: April 2020) MTDD
== END 2024-02-28 16:20 | disposition expired | DRG 208 ==
LOC: EC 22:34 → 3SCARD 02-23 05:18 → 2SICU 02-25 04:46
PROVIDERS: ADMIT Hospitalist; ATTEND Hospitalist
PROC: 0BBB8ZX Excision of Left Lower Lobe Bronchus, Via Natural or Artificial Opening Endoscopic, Diagnostic (ICD-10-PCS; 2024-02-24)
PROC: 0B9J8ZX Drainage of Left Lower Lung Lobe, Via Natural or Artificial Opening Endoscopic, Diagnostic (ICD-10-PCS; 2024-02-24 07:30)
PROC: 5A1945Z Respiratory Ventilation, 24-96 Consecutive Hours (ICD-10-PCS; principal; 2024-02-25)
PROC: 03HY32Z Insertion of Monitoring Device into Upper Artery, Percutaneous Approach (ICD-10-PCS; 2024-02-25)
PROC: 4A133B1 Monitoring of Arterial Pressure, Peripheral, Percutaneous Approach (ICD-10-PCS; 2024-02-25)
PROC: 4A133J1 Monitoring of Arterial Pulse, Peripheral, Percutaneous Approach (ICD-10-PCS; 2024-02-25)
PROC: 0BH17EZ Insertion of Endotracheal Airway into Trachea, Via Natural or Artificial Opening (ICD-10-PCS; 2024-02-25)
PROC: 0BCB8ZZ Extirpation of Matter from Left Lower Lobe Bronchus, Via Natural or Artificial Opening Endoscopic (ICD-10-PCS; 2024-02-25)
PROC: 0BC88ZZ Extirpation of Matter from Left Upper Lobe Bronchus, Via Natural or Artificial Opening Endoscopic (ICD-10-PCS; 2024-02-25)
PROC: 0BC78ZZ Extirpation of Matter from Left Main Bronchus, Via Natural or Artificial Opening Endoscopic (ICD-10-PCS; 2024-02-25)
PROC: 3E033XZ Introduction of Vasopressor into Peripheral Vein, Percutaneous Approach (ICD-10-PCS; 2024-02-25)
DX: C34.32 Malignant neoplasm of lower lobe, left bronchus or lung (principal); G93.41 Metabolic encephalopathy; J96.02 Acute respiratory failure with hypercapnia; J18.1 Lobar pneumonia, unspecified organism; J96.21 Acute and chronic respiratory failure with hypoxia; T17.890A Other foreign object in other parts of respiratory tract causing asphyxiation, initial encounter; C79.51 Secondary malignant neoplasm of bone; C78.7 Secondary malignant neoplasm of liver and intrahepatic bile duct; J44.0 Chronic obstructive pulmonary disease with (acute) lower respiratory infection; I42.9 Cardiomyopathy, unspecified; R57.9 Shock, unspecified; Z51.5 Encounter for palliative care; Z66 Do not resuscitate; W44.F9XA Other object of natural or organic material, entering into or through a natural orifice, initial encounter; F32.A Depression, unspecified; G47.33 Obstructive sleep apnea (adult) (pediatric); E78.5 Hyperlipidemia, unspecified; I10 Essential (primary) hypertension; M06.9 Rheumatoid arthritis, unspecified; Z79.51 Long term (current) use of inhaled steroids; Z79.899 Other long term (current) drug therapy; Z92.21 Personal history of antineoplastic chemotherapy; Z92.3 Personal history of irradiation; Z87.891 Personal history of nicotine dependence
CPT/HCPCS: 31624; 31628; 36415; 70450; 71045; 71046; 71275; 80048; 80053; 80306; 81003; 82805; 83036; 83735; 83880; 84132; 84145; 84484; 85025; 85379; 85610; 85730; 87040; 87070; 87102; 87116; 87205; 87206; 87449; 88108; 88305; 88341; 88342; 93005; 94002; 94003; 94640; 94660; 96361; 96365; 96366; 96367; 99285